=== PATIENT | female | born 1950 | race Caucasian/White ===

== ENCOUNTER 2024-09-15 16:13 | Outpatient (REF) | payer SELFPAY ==
[2024-09-15 17:15] LABS: Influenza A PCR NEGATIVE (Negative); Influenza B PCR NEGATIVE (Negative); Resp Syncy Virus RNA Qual PCR NEGATIVE (Negative); SARS COV2 PCR INHOUSE NEGATIVE (Negative)
== END 2024-09-15 16:14 | disposition home or self-care (01) ==
LOC: HO.LNP 16:13
PROVIDERS: Visit Provider Nurse Practitioner Gerontology
DX: J02.9 Acute pharyngitis, unspecified (principal)
CPT/HCPCS: 0241U

== ENCOUNTER 2024-09-28 10:58 | Emergency (ER) | payer MEDICARE, SELFPAY ==
--- NOTE | ~2024-09-28 | XR_ITS ---
EXAMINATION: XR CHEST CLINICAL INFORMATION: Failure to thrive. COMPARISON: None available. TECHNIQUE: AP portable view of the chest was obtained. FINDINGS: Study is limited due to leftward patient rotation. There is cardiac enlargement. Mediastinal and hilar contours appear normal. The aorta is calcified. Lungs demonstrate patchy increased opacities in the right upper and right lower lobes. Increased background parenchymal markings, with Sofia lines in the peripheral lungs, suggesting mild CHF. Blunting of the right costophrenic sulcus, possibly representing a small effusion. No pneumothorax. Kyphoscoliosis and degenerative changes of the spine. End-stage arthritic changes of both shoulder joints. XR/XR chest 1V IMPRESSION: 1. Exam limited due to patient rotation. 2. Cardiomegaly with mild interstitial pulmonary edema, and tiny right effusion. 3. More confluent foci of opacity in the medial right lung base and right upper lobe could represent asymmetric alveolar edema, or possibly regions of pneumonia. Electronically signed by: Steve Almanza MD 09/28/2024 12:40 PM [facility]
[2024-09-28 11:06] VITALS: BP 126/75; PULSE 112; O2SAT 99
--- NOTE | 2024-09-28 11:16 | ED.GENADULT ---
HPI - General Adult General Chief complaint: General Medical Stated complaint: FTT Time Seen by Provider: 09/28/24 11:14 Source: patient and EMS Mode of arrival: EMS Limitations: no limitations History of Present Illness ED Provider: DAWNA REINA PA-C HPI narrative: 74 year old female with pmhx significant for F, RA, tachycardia, Sjogren's syndrome, anemia, metabolic encephalopathy, anxiety presents the ED today via EMS from [facility] for evaluation of FTT. Per facility, patient has been refusing PO intake over the past week. At present, she denies any complaints. She is asking for water. She has a sacral pressure wound that is dressed. No hx of DM. Related Data Home Medications ?Medication ?Instructions ?Recorded ?Confirmed acetaminophen 325 mg tablet 650 mg PO Q6H PRN Fever 09/28/24 09/28/24 acetaminophen 325 mg tablet 650 mg PO Q6H PRN Pain 09/28/24 09/28/24 acetaminophen 500 mg tablet 1,000 mg PO TID 09/28/24 09/28/24 ascorbic acid (vitamin C) 500 mg 500 mg PO DAILY 09/28/24 09/28/24 tablet (Vitamin C) aspirin 81 mg tablet,delayed 81 mg PO DAILY 09/28/24 09/28/24 release atorvastatin 80 mg tablet 80 mg PO BEDTIME 09/28/24 09/28/24 bisacodyl 10 mg rectal suppository 10 mg MD DAILY PRN Constipation 09/28/24 09/28/24 carvedilol 3.125 mg tablet 3.125 mg PO BID 09/28/24 09/28/24 dapagliflozin propanediol 10 mg 10 mg PO BEDTIME 09/28/24 09/28/24 tablet (Farxiga) dextran 70-hypromellose (PF) 0.1 1 drp ophthalmic (eye) Q8H PRN Dry 09/28/24 09/28/24 %-0.3 % eye drops in a dropperette Eye(S) (Artificial Tears (PF)) docusate sodium 100 mg capsule 100 mg PO BID 09/28/24 09/28/24 (Colace) furosemide 20 mg tablet 20 mg PO DAILY 09/28/24 09/28/24 magnesium hydroxide 400 mg/5 mL 30 ml PO DAILY PRN Constipation 09/28/24 09/28/24 oral suspension (Milk of Magnesia) sodium phosphates 19 gram-7 118 ml MD DAILY PRN Constipation 09/28/24 09/28/24 gram/118 mL enema (Fleet Enema) spironolactone 25 mg tablet 25 mg PO DAILY 09/28/24 09/28/24 Allergies Allergy/AdvReac Type Severity Reaction Status Date / Time Penicillins [PENICILLINS] Allergy Unknown SICKER Verified 09/28/24 12:07 Sulfa (Sulfonamide Allergy Unknown BLUE-RED Verified 09/28/24 12:07 Antibiotics) RASH- FLU [SULFA (SULFONAMIDE LIKE ANTIBIOTICS)] SYMPTOMS Review of Systems Review of Systems: Yes all other systems are reviewed and are negative PMFSH Past Medical History Attestation statement: The following information was validated with the patient. Source: old records reviewed and nursing notes reviewed Social History Social History Smoked in Last 30 Days: No Use of substances other than those prescribed or required for medical reasons: No Advance Directives: Yes Advance Directives on File: Yes Advance Directives Date on File: 09/28/24 Physical Exam ED Vital Signs: Vital Signs - 24 hr 09/29/24 02:10 09/29/24 03:53 09/29/24 08:00 Temperature 97.2 F 98.0 F Pulse Rate 91 95 97 Respiratory Rate 16 14 15 Blood Pressure 141/63 H 122/55 L 140/68 H Pulse Oximetry 97 98 98 Oxygen Delivery Method Room Air Room Air Room Air 09/29/24 09:26 09/29/24 15:37 09/29/24 19:58 Temperature 98.0 F 97.5 F Pulse Rate 92 95 Respiratory Rate 20 17 20 Blood Pressure 130/54 L 130/60 Pulse Oximetry 96 99 Oxygen Delivery Method Room Air Room Air BMI result Body Mass Index 16.0 hypertensive, tachycardic, febrile General: thin female Skin: + see photo of sacral pressure ulcer below Head: Normocephalic, atraumatic. EENT: Hearing is intact b/l. Conjunctiva clear. PERRLA. EOM intact. Moist mucous membranes.? Neck: Supple without LAD Cardiac: Chest wall symmetric. RRR. no peripheral edema. Lungs: Normal respiratory effort without accessory muscle use. CTA bilaterally Abdomen: Soft, non-tender, non-distended. No rebound tenderness or guarding Back: No midline spinous or paraspinal tenderness. No step off deformity. Ext: Upper and lower extremities atraumatic, without tenderness, deformity, swelling or erythema Neuro: AOx3. Normal speech. Global weakness w/ strength 3/5 intact throughout. Sensation intact to light touch. NV intact distally. gait not assessed. Psych: Appropriate mood and affect. Responds appropriately to questions. Course Course Course Narrative: 1130 -- HR 116, rectal temp of 102F. concern for infection. sepsis protocol initiated. IV tylenol for fever. vanc + cefepime for broad spectrum coverage. lactic + BC ordered. 1338 -- I had a long discussion with patient's healthcare proxy (son) along with her [id number]. Patient has a longstanding history of multiple admissions to [facility]. They requested that she be brought to [facility] today for continuity of care however she was brought to [place] emergency department. They tell me that she has been in and out of the hospital with multiple infection (pneumonia, CHF, ?septic joint, pressure ulcers). She has been complaining of pain x months and has been refusing food/drink and all medications. She was recently discharged from [facility] to SNF on [facility] [employer] with plans for hospice. Hospice did visit patient this past week, without HCP present, and patient declined hospice. On arrival, she has a signed MOLST form stating full code, dated yesterday. Patient is not alert and oriented and does not have the capacity to make these decisions. after lengthy discussion, new MOLST form filled out with HCP sating patient is DNR/DNI. They would like any treatable infections to be treated. Will consult CM regarding [employer]/ hospice. labs UA still pending. 1700 -- CBC showing leukocytosis to 19.6 with left shift. Microcytic anemia, chronic when compared to priors. H&H stable and above transfusion threshold. Chemistry showing hyponatremia to 162. Hypokalemia at 3.2 hyperchloremia to 124. No BERONICA. Lactic WNL at 1.7. Liver function WNL. Troponin elevated to 728.3, likely demand. BNP elevated to 3879. cxr showing cardiomegaly with mild interstitial pulmonary edema and tiny right pleural effusion. More confident foci of opacity in the middle right lung base and right upper lobe which may represent alveolar edema or pneumonia. urine positive for infection. negative covid, flu, rsv. > I had a discussion with healthcare proxy. Although he wishes to make his mother [employer], he does wish to treat any treatable conditions. I discussed admission to the hospital for IV antibiotics and he is agreeable with this. I reached out to hospitalist dr. walls who will be discussing admission w/ patient and HCP. 1744 -- upon discussion with hospitalist, HCP has ultimately decided that it's best for patient to be discharged back to her nursing facility. he does not wish to admit patient for further treatment. Dr. Walls is recommending d/c on PO morphine and levofloxacin. i did speak with case management regarding return back to facility. patient is not a bed hold and cannot go back to facility today. at this time, will make patient comfortable w/ morphine q4 and re-evaluate in the morning. physician observation initiated pending re-eval, CM, and disposition. Medications Administered Generic Name Dose Route Start Last Admin Trade Name Freq PRN Reason Stop Dose Admin Morphine Sulfate 2 mg 09/28/24 20:45 09/29/24 18:28 Morphine Sulfate 2 Mg/Ml Cartridge IVPUSH Not Given [facility] Protocol Discontinued Medications Generic Name Dose Route Start Last Admin Trade Name Freq PRN Reason Stop Dose Admin Sodium Chloride 1,000 mls @ 999 mls/hr 09/28/24 11:30 09/28/24 13:24 Ns IV 09/28/24 12:30 Infused .Q1H1M CELESTINO Infusion Acetaminophen 1,000 mg in 100 mls @ 400 mls/hr 09/28/24 11:28 09/28/24 12:06 Ofirmev IV 09/28/24 11:42 Infused ONCE ONE Infusion Cefepime HCl 2 gm in 50 mls @ 100 mls/hr 09/28/24 11:32 09/28/24 12:16 Maxipime IV 09/28/24 12:01 Infused ONCE ONE Infusion Vancomycin HCl 1,000 mg/ 270 mls @ 270 mls/hr 09/28/24 11:32 09/28/24 14:00 Sodium Chloride IV 09/28/24 12:31 Infused ONCE ONE Infusion Morphine Sulfate 2 mg 09/28/24 13:41 09/28/24 14:01 Morphine Sulfate 2 Mg/Ml Cartridge IVPUSH 09/28/24 13:42 2 mg ONCE ONE Administration Protocol Medical Decision Making Medical Decision Making [facility] Narrative: 74 year old female with pmhx significant for F, RA, tachycardia, Sjogren's syndrome, anemia, metabolic encephalopathy, anxiety presents the ED today via EMS from [facility] for evaluation of FTT. Vital signs notable for hypertension, tachycardia and fever. She is not hypoxic. No signs of respiratory distress. She is thin appearing. Exam notable for sacral pressure ulcar w/ purulent drainage and surrounding erythema. no other open skin wounds. lungs are cta b/l. Differential diagnosis include anemia, electrolyte abnormality, dehydration, FTT, CHF, arrhythmia, ACS, pneumonia, viral syndrome, bronchitis, cellulitis, sacral abscess, sepsis Plan for labs,ekg, lactic/blood cultures, CXR, re-evaluation. Tylenol ordered for fever. Vancomycin and cefepime ordered for broad-spectrum coverage. Differential Diagnosis Differential Diagnoses: The differential diagnosis associated with the presentation includes as above. Admission/Observation Consideration of admission/observation: Escalation of care including admission/observation considered Admission considered on presentation Lab Data [facility] Lab Attestation statement: I reviewed the patient's lab results. as above. 09/28/24 11:41 09/28/24 14:14 Labs: Lab Results 09/28/24 09/28/24 09/28/24 Range/Units 11:41 14:14 14:24 WBC 19.6 H (4.8-10.8) X10*3/uL RBC 3.79 L (4.20-5.50) X10*6/uL Hgb 8.7 L (12.0-16.0) g/dl Hct 29.7 L (37.0-47.0) % MCV 78.4 L (80.0-98.0) fL MCH 23.0 L (27.0-33.0) pg MCHC 29.3 L (31.0-35.0) g/dl RDW 23.8 H (11.0-16.0) % Plt Count 492 H (160-400) X10*3/uL MPV 9.2 L (9.4-12.3) fL Immature Gran % (Auto) 1.0 H (0.0-0.4) % Neut % (Auto) 88.6 H (45-73) % Lymph % (Auto) 5.4 L (20-40) % Schley % (Auto) 4.9 (2-11) % Eos % (Auto) 0.0 (0-4) % Baso % (Auto) 0.1 (0-2) % Lymph # (Auto) 1.1 L (1.2-4.9) X10*3/uL Schley # (Auto) 1.0 (0.1-1.2) X10*3/uL Eos # (Auto) 0.0 (0.0-0.4) X10*3/uL Baso # (Auto) 0.0 (0.0-0.2) X10*3/uL Abs Immat Gran (auto) 0.19 H (0.00-0.03) X10*3/uL Absolute Neuts (auto) 17.4 H (2.0-8.3) x10*3/uL Absolute Nucleated RBC 0.090 H (0.0-0.012) X10*3/uL Nucleated RBC % (auto) 0.5 H (0.0-0.2) /100WBC Sodium 162 H* D (135-145) mmol/L Potassium 3.2 L D (3.3-5.1) mmol/L Chloride 124 H D (96-108) mmol/L Carbon Dioxide 26 (22-29) mmol/L Anion Gap 15 (12-20) BUN 19 H (9-16) mg/dL Creatinine 0.43 L (0.5-1.4) mg/dL Estim Creat Clear Calc 61.1 Estimated GFR > 60 Random Glucose 101 (60-115) mg/dL Lactic Acid 1.7 (0.5-2.0) mmol/L Calcium 7.6 L D (8.4-10.2) mg/dL Magnesium 2.1 (1.6-2.6) mg/dL Total Bilirubin 0.4 (0.0-1.0) mg/dL AST 20 (5-31) U/L ALT < 6 (0-31) U/L Alkaline Phosphatase 79 (39-117) U/L Troponin I High Sens 728.3 H* (<3.5-17.0) ng/L B-Natriuretic Peptide 3879 H (<100) pg/mL Total Protein 5.9 L (6.5-8.0) g/dL Albumin 2.3 L (3.5-5.0) g/dL Urine Color Dark Yellow Urine Appearance Cloudy Urine pH 6.0 (5.0-9.0) Ur Specific Graham 1.025 (1.005-1.025) Urine Protein 100 (2+) H (Neg-Trace) mg/dL Urine Glucose (UA) Negative (Negative) mg/dL Urine Ketones 15 (Negative) mg/dL Urine Blood Negative (Negative) Urine Nitrite Positive H (Negative) Ur Leukocyte Esterase Small (1+) H (Negative) Urine RBC 3-5 H (0-2) /HPF Urine WBC 6-10 H (0-5) /HPF Ur Squamous Epith Cells 6-10 (0-2) /HPF Urine Bacteria None Seen (None Seen) Hyaline Casts >20 (0-2) /LPF Influenza Type A (PCR) NEGATIVE (Negative) Influenza Type B (PCR) NEGATIVE (Negative) RSV RNA Qual (PCR) NEGATIVE (Negative) SARS-CoV-2 RNA (RT-PCR) NEGATIVE (Negative) Independent Interpretation I performed an independent interpretation of an: EKG and Plain X-Ray Interpretation: EKG showing sinus tachycardia with LVH, rate of 120 beats per minute, QT 322, QTC 435 CXR showing opacity to right lung base Radiology Impression Discussion of test interpretation with radiology: I have reviewed the radiologist's reading. Radiologist Impression: EXAMINATION: XR CHEST CLINICAL INFORMATION: Failure to thrive. COMPARISON: None available. TECHNIQUE: AP portable view of the chest was obtained. FINDINGS: Study is limited due to leftward patient rotation. There is cardiac enlargement. Mediastinal and hilar contours appear normal. The aorta is calcified. Lungs demonstrate patchy increased opacities in the right upper and right lower lobes. Increased background parenchymal markings, with Sofia lines in the peripheral lungs, suggesting mild CHF. Blunting of the right costophrenic sulcus, possibly representing a small effusion. No pneumothorax. Kyphoscoliosis and degenerative changes of the spine. End-stage arthritic changes of both shoulder joints. XR/XR chest 1V IMPRESSION: 1. Exam limited due to patient rotation. 2. Cardiomegaly with mild interstitial pulmonary edema, and tiny right effusion. 3. More confluent foci of opacity in the medial right lung base and right upper lobe could represent asymmetric alveolar edema, or possibly regions of pneumonia. Electronically signed by: Steve Almanza MD 09/28/2024 12:40 PM [facility] Independent Historian Clinical information obtained from an independent historian. History obtained from or confirmed by: EMS and Other (son/hcp, daughter in law) External Record Review External record reviewed: Inpatient record Prescription Management I considered prescription management with: Pain Medication and Antibiotic Chronic Conditions Patient?s care impacted by: Other (CHF) Social Determinants Patient?s care significantly limited by Social Determinants of Health including: Other Social Determinant of Health Critical Care Time Critical Care Time Critical Care Time: No Discharge Plan Discharge Clinical Impression: Sepsis, Adult failure to thrive, Pneumonia, Urinary tract infection, Elevated troponin, CHF (congestive heart failure) Patient Disposition: Still a Patient Prescriptions: No Action atorvastatin 80 mg tablet 80 mg PO BEDTIME acetaminophen 325 mg Tablet 650 mg PO Q6H PRN (Reason: Fever) acetaminophen 325 mg Tablet 650 mg PO Q6H PRN (Reason: Pain) aspirin 81 mg Tablet,Delayed Release (Dr/Ec) 81 mg PO DAILY acetaminophen 500 mg Tablet 1,000 mg PO TID spironolactone 25 mg tablet 25 mg PO DAILY carvedilol 3.125 mg tablet 3.125 mg PO BID magnesium hydroxide [Milk of Magnesia] 400 mg/5 mL Suspension 30 ml PO DAILY PRN (Reason: Constipation) Rx Instructions: (Step 1) If no BM for 3 days ascorbic acid (vitamin C) [Vitamin C] 500 mg Tablet 500 mg PO DAILY bisacodyl 10 mg Suppository 10 mg MD DAILY PRN (Reason: Constipation) Rx Instructions: If no BM for 8 hours after after M.O.M Fleet Enema 19-7 gram/118 mL Enema 118 ml MD DAILY PRN (Reason: Constipation) Rx Instructions: (Step 3) If no BM for 8 hours after Bisacodyl Supp. docusate sodium [Colace] 100 mg Capsule 100 mg PO BID furosemide 20 mg tablet 20 mg PO DAILY Artificial Tears (PF) 0.1-0.3 % Dropperette 1 drp OPHTHALMIC (EYE) Q8H PRN (Reason: Dry Eye(S)) Rx Instructions: Both Eyes dapagliflozin propanediol [Farxiga] 10 mg Tablet 10 mg PO BEDTIME Print Language: Citizen Of [place]
--- NOTE | 2024-09-28 11:18 | ECG_ITS ---
Test Reason : FTT Blood Pressure : */* mmHG Vent. Rate : 120 BPM Atrial Rate : 120 BPM P-R Int : 122 ms QRS Dur : 78 ms QT Int : 322 ms P-R-T Axes : 38 -14 86 degrees QTcB Int : 455 ms Sinus tachycardia Left ventricular hypertrophy with repolarization abnormality ( R in aVL , [place] product , Romhilt-Mcelroy ) Anterior infarct , age undetermined Abnormal ECG No previous ECGs available Referred By: Kesha Begum Electronically Signed By: LITO SWEET MD
[2024-09-28 11:24] VITALS: BP 140/62; PULSE 116; RESP 18; TEMP 38.9; O2SAT 96; BMI 16.0
[2024-09-28] MEDS: cefEPime HCl/D5W 2 GM/50 ML PIGGYBACK IV (11:45)
[2024-09-28] MEDS: 0.9 % Sodium Chloride 1,000 ML 999 ML IV (11:46)
[2024-09-28 11:47] LABS: MANUAL DIFF FLAG NO
[2024-09-28] MEDS: Acetaminophen 1,000 MG/100 ML PIGGYBACK 400 MG IV (11:48)
[2024-09-28 11:51] LABS: Basophils Percent Auto 0.1 % (0-2); Hematocrit 29.7 % (37.0-47.0); Hemoglobin 8.7 g/dl (12.0-16.0); Imm Gran Abs Auto 0.19 X10*3/uL (0.00-0.03); Lymphocytes Absolute Auto 1.1 X10*3/uL (1.2-4.9); Lymphocytes Percent Auto 5.4 % (20-40); Mean Corpuscular HGB Conc 29.3 g/dl (31.0-35.0); Mean Corpuscular Volume 78.4 fL (80.0-98.0); Mean Platelet Volume 9.2 fL (9.4-12.3); Monocytes Percent Auto 4.9 % (2-11); NRBC Pct Auto 0.5 /100WBC (0.0-0.2); Neutrophils Absolute Auto 17.4 x10*3/uL (2.0-8.3); Neutrophils Percent Auto 88.6 % (45-73); Platelet Count 492 X10*3/uL (160-400); Red Blood Count 3.79 X10*6/uL (4.20-5.50); Red Cell Distribution Width 23.8 % (11.0-16.0); White Blood Count 19.6 X10*3/uL (4.8-10.8)
[2024-09-28 12:02] LABS: Lactic Acid 1.7 mmol/L (0.5-2.0)
[2024-09-28 12:38] LABS: Influenza A PCR NEGATIVE (Negative); Influenza B PCR NEGATIVE (Negative); Resp Syncy Virus RNA Qual PCR NEGATIVE (Negative); SARS COV2 PCR INHOUSE NEGATIVE (Negative)
[2024-09-28] MEDS: vancomycin HCL 1,000 MG in 0.9 % Sodium Chloride 250 ML 270 MG IV (12:54)
[2024-09-28 13:26] VITALS: BP 133/65; PULSE 104; RESP 20; O2SAT 96
--- NOTE | 2024-09-28 13:28 | PC.NURSE ---
pt has a wound to her sacral area. there is pus and drainage. came bandaged. dresing clean. photo taken by JAKE
[2024-09-28 14:01] VITALS: BP 138/67; PULSE 97; RESP 20; O2SAT 97
[2024-09-28] MEDS: Morphine Sulfate 2 MG/ML CARTRIDGE IVPUSH (14:01)
--- OUTSIDE RECORDS SUMMARY | 2024-09-28 14:15 | XMS_ITS | Encounter Summary ---
Author Organization [facility] Address [address] [place] [address] Care Team Providers Care Steel Box Toe Inserter Name Role Phone Dale Pinto MD Primary Care Provider [phone] Encounter Details Date Type Department Care Team (Late st Contact Info) Description 07/09/[address] [facility] Lab [address] [facility] [place] [address] Rye Escalante MD [address] [place] [id number] Acute respiratory failure with hypoxia (CMS/HCC) Social History Tobacco Use Types Packs/Day Years Used Date Smoking Tobacco: Never Smokeless Tobacco: Never Alcohol Use Standard Drinks/Week Comments Never 0 (1 standard drink = 0.6 oz pur e alcohol) Sex and Gender Information Value Date Recorded Sex Assigned at Female 08/08/2024 10:43 PM EST Gender Identity Female 08/08/2024 10:43 PM EST Sexual Orientation Straight 08/08/2024 10 :43 PM EST Job Start Date Occupation Industry Not on file Not on file Not on file documented as of this encounter Plan of Treatment Not on file documented as of this encounter Procedures Procedure Name Priority Date/Time Associated Diagnosis Comments CBC WITH AUTO DIFFERENTIAL Routine 07/09/2024 5:53 AM EST Acute respiratory failure with hypoxia (CMS/HCC) CBC AND DIFFERENTIAL Routine 07/09/2024 5:53 AM EST Acute respiratory failure with hypoxia (CMS/HCC) COMPREHENSIVE METABOLIC PANEL Routine 07/09/2024 5:53 AM EST Acute respiratory failure with hypoxia (CMS/HCC) documented in this encounter Results * (ABNORMAL) CBC auto differential (07/09/2024 5:53 AM EST) WBC 12.1(H) 4.8 - 10.8 K/mcL LAB HEMETOLOGY METHOD 07/09/2024 12:36 PM [facility] RBC 3.70(L) 3.80 - 4.80 M/mcL LAB HEMETOLOGY METHOD 07/09/2024 12:36 PM [facility] Hemoglobin 7.9(L) 11.5 - 16.0 g/dL LAB HEMETOLOGY METHOD 07/09/2024 12:36 PM [facility] Hematocrit 26.6(L) 35.0 - 47.0 % LAB HEMETOLOGY METHOD 07/09/2024 12:36 PM [facility] MCV 71.7(L) 79.0 - 98.0 FL LAB HEMETOLOGY METHOD 07/09/2024 12:36 PM [facility] MCH 21.3(L) 27.0 - 32.0 pcg LAB HEMETOLOGY METHOD 07/09/2024 12:36 PM [facility] MCHC 29.7(L) 32.0 - 37.0 g/dL LAB HEMETOLOGY METHOD 07/09/2024 12:36 PM [facility] RDW 18.6(H) 11.0 - 15.0 % LAB HEMETOLOGY METHOD 07/09/2024 12:36 PM [facility] Platelets 759(H) 130 - 400 K/mcL LAB HEMETOLOGY METHOD 07/09/2024 12:36 PM [facility] MPV 9.9 7.0 - 11.0 FL LAB HEMETOLOGY METHOD 07/09/2024 12:36 PM [facility] NRBC 0.0 <1.0 % LAB HEMETOLOGY METHOD 07/09/2024 12:36 PM [facility] NRBC Absolute 0.00 <0.10 K/mcL LAB HEMETOLOGY METHOD 07/09/2024 12:36 PM [facility] Neutrophils Relative 85.9 % LAB HEMETOLOGY METHOD 07/09/2024 12:36 PM [facility] Lymphocytes Relative 8.2 % LAB HEMETOLOGY METHOD 07/09/2024 12:36 PM [facility] Monocytes Relative 2.3 % LAB HEMETOLOGY METHOD 07/09/2024 12:36 PM [facility] Eosinophils Relative 2.9 % LAB HEMETOLOGY METHOD 07/09/2024 12:36 PM [facility] Basophils Relative 0.1 % LAB HEMETOLOGY METHOD 07/09/2024 12:36 PM [facility] Immature Granulocytes Relative 0.6 % LAB HEMETOLOGY METHOD 07/09/2024 12:36 PM [facility] Neutrophils Absolute 10.43(H) 1.50 - 7.00 K/mcL LAB HEMETOLOGY METHOD 07/09/2024 12:36 PM [facility] Lymphocytes Absolute 1.00 1.00 - 5.00 K/mcL LAB HEMETOLOGY METHOD 07/09/2024 12:36 PM [facility] Monocytes Absolute 0.28 0.20 - 1.00 K/mcL LAB HEMETOLOGY METHOD 07/09/2024 12:36 PM [facility] Eosinophils Absolute 0.35 0.00 - 0.50 K/mcL LAB HEMETOLOGY METHOD 07/09/2024 12:36 PM [facility] Basophils Absolute 0.01 0.00 - 0.20 K/mcL LAB HEMETOLOGY METHOD 07/09/2024 12:36 PM [facility] Immature Granulocytes Absolute 0.07(H) 0.00 - 0.03 K/mcL LAB HEMETOLOGY METHOD 07/09/2024 12:36 PM [facility] Blood Venous blood specimen / Unknown Venipuncture / Unknown 07/09/2024 5:53 AM EST 07/09/2024 12:02 PM EST Rey Escalante MD LAB BLOOD ORDERABLES [facility] [address] [place] [address], * (ABNORMAL) Comprehensive metabolic panel (07/09/2024 5:53 AM EST) Sodium 132(L) 133 - 145 mmol/L LAB CHEMISTRY METHOD 07/09/2024 1:48 PM [facility] Potassium 4.5 3.5 - 5.5 mmol/L LAB CHEMISTRY METHOD 07/09/2024 1:48 PM [facility] Chloride 96 96 - 110 mmol/L LAB CHEMISTRY METHOD 07/09/2024 1:48 PM [facility] CO2 26 21 - 32 mmol/L LAB CHEMISTRY METHOD 07/09/2024 1:48 PM [facility] Anion Gap 10 3 - 11 LAB CHEMISTRY METHOD 07/09/2024 1:48 PM [facility] Glucose 69(L) 70 - 100 mg/dL LAB CHEMISTRY METHOD 07/09/2024 1:48 PM [facility] Comment:Lipemia present BUN 5 5 - 25 mg/dL LAB CHEMISTRY METHOD 07/09/2024 1:48 PM [facility] Creatinine 0.24(L) 0.50 - 1.10 mg/dL LAB CHEMISTRY METHOD 07/09/2024 1:48 PM [facility] eGFR 116 >=60 mL/min/1. 73m2 LAB CHEMISTRY METHOD 07/09/2024 1:48 PM [facility] Comment:Calculation based on the??Chronic Kidney Disease Epidemiology Collaboration (CKD-EPI) equation refit??without adjustment for race. BUN/Creatinine Ratio 20.8 LAB CHEMISTRY METHOD 07/09/2024 1:48 PM [facility] Calcium 8.5 8.5 - 10.5 mg/dL LAB CHEMISTRY METHOD 07/09/2024 1:48 PM [facility] AST (SGOT) 11 10 - 42 unit/L LAB CHEMISTRY METHOD 07/09/2024 1:48 PM [facility] ALT (SGPT) 9(L) 10 - 60 unit/L LAB CHEMISTRY METHOD 07/09/2024 1:48 PM [facility] Alkaline Phosphatase 98 42 - 121 unit/L LAB CHEMISTRY METHOD 07/09/2024 1:48 PM [facility] Total Protein 5.9(L) 6.0 - 8.0 g/dL LAB CHEMISTRY METHOD 07/09/2024 1:48 PM [facility] Albumin 2.3(L) 3.2 - 5.0 g/dL LAB CHEMISTRY METHOD 07/09/2024 1:48 PM [facility] Total Bilirubin 0.3 0.0 - 1.4 mg/dL LAB CHEMISTRY METHOD 07/09/2024 1:48 PM [facility] Blood Venous blood specimen / Unknown Venipuncture / Unknown 07/09/2024 5:53 AM EST 07/09/2024 12:02 PM EST Rey Escalante MD LAB BLOOD ORDERABLES [facility] [address] [place] [address], documented in this encounter Visit Diagnoses Diagnosis Acute respiratory failure with hypoxia (CMS/HCC) documented in this encounter Additional Health Concerns Infection Onset Date Last Indicated Resolved Time Respiratory Rule-Out 08/09/2024 08/10/2024 024 2:15 AM EST COVID-19 Rule-Out 08/09/2024 08/10/2024 08/10/2024 2:15 AM EST Enterovirus 08/10/2024 08/10/2024 09/03/2024 7:06 PM EST Rhinovirus 08/10/2024 08/10/2024 09/03/2024 7:06 PM EST Respiratory Rule-Out 09/17/2024 09/17/2024 025 5:39 PM EST COVID-19 Rule-Out 09/17/2024 09/17/2024 09/17/2024 5:39 PM EST documented as of this encounter Care Teams Steel Box Toe Inserter Relationship Specialty Start Date End Date Dale Pinto MD [address] [place] [address] PCP - General Internal Medicine 11/10/21 documented as of this encounter
--- OUTSIDE RECORDS SUMMARY | 2024-09-28 14:15 | XMS_ITS | Patient Health Record ---
Author Organization [facility] [place] Address [address] [place] [address] Care Team Providers Care Bioinformatician Name Role Phone Dale Pinto MD Primary Care Provider Peggy Jackson Unavailable [phone] Hanna Aggarwal Unavailable [phone] Allergies Allergen (clinical drug ingredient) Drug/Non Drug Allergy documented on EMR Reaction Allergy Type Onset Date Status loratadine Claritin throat closes Drug Allergy Ac tive Penicillin Unknown Drug Allergy Active Substance with sulfonamide structure and antibacterial mechanism of action (substance) Sulfa Antibiotics Unknown Drug Allergy Active Reason For Referral No Information Medications Medication SIG (Take, Route, Frequency, Duration) Notes Start Date End Date Status Custom Molded Shoes as directed Dx: Limb length deformity-Left leg shorter 09/02/2022 Not-Taking Tylenol PRN Not-Taking Advil 3x a day Active Enbrel 15m Active Vitamin D Active Social History Tobacco Use: Social History Observation Description Date Details (start date - stop date) Never Smoker NA - NA Tobacco Use/Smoking Question Answer Notes Are you a: nonsmoker Additional Findings: Tobacco Non-User Current no n-smoker Alcohol Screen Question Answer Notes Did you have a drink containing alcohol in the p ast year? No Points 0 Interpretation Negative Tobacco use other than smoking: Question Answer Notes Are you an other tobacco user? No Problems Problem Type SNOMED Code ICD Code Onset Dates Problem Status W/U Status Risk Notes Problem [id number] Hallux valgus (acquired), left foot (M20.12) Active confirmed Problem [id number] Hallux valgus (acquired), right foot (M20.11) Active confirmed Problem [id number] Hammer toe of right foot (M20.41) Active confirmed Problem 536244957 Hammer toe of left foot (M20.42) Active confirmed Problem 01551830 Lower limb length difference (M21.70) Active confirmed Vital Signs Blood pressure diastolic 70 mm Hg 04/25/2024 Height 2se87jy in 04/25/2024 Blood pressure systolic 127 mm Hg 04/25/2024 Weight 100 lbs 04/25/2024 BMI 20.9 kg/m2 04/25/2024 Encounters Encounter Location Date Provider Diagnosis [address] [address] 06/08/2024 Hanna Aggarwal [address] [address] 11/04/2023 Peggy Curiela Tinea unguium B35.1 ; Pain in right toe(s) M79.674 and Pain in left toe(s) M79.[address] [address] 04/25/2024 Peggy Curiela Tinea unguium B35.1 ; Pain in right toe(s) M79.674 and Pain in left toe(s) M79.[address] [address] 04/16/2024 Peggy Parker [address] [address] 06/07/2024 Peggy Parker [address] [address] 07/25/2024 Peggy Parker Assessments Encounter Date Diagnosis (ICD Code) Assessment Notes Treatment Notes Treatment Clinical Notes Section Notes 11/04/2023 Tinea unguium (ICD-10 - B35.1) 11/04/2023 Pain in right toe(s) (ICD-10 - M79.674) 04/25/2024 Tinea unguium (ICD-10 - B35.1) 04/25/2024 Pain in right toe(s) (ICD-10 - M79.674) 04/25/2024 Pain in left toe(s) (ICD-10 - M79.675) 11/04/2023 Pain in left toe(s) (ICD-10 - M79.675) Plan Of Treatment Pending Test Test Name Order Date X ray : Foot, right 3V 05/17/2023 Insurance Providers Payer Name Payer Address Payer Phone Subscriber Number Group Number Insured Name Patient Relationship to Insured Coverage Start Date Coverage End Date Medicare National [employer] [address] [place] [address] [id number] KaseyLouann byrd Self - patient is the insured [facility] [address] [facility] [place] [address] [phone] [id number] Louann Barrientos Self - patient is the insured Medical (General) History Medical History History ICD Code Anxiety Broken bones Back,Hip,and Knee pain Anemia White coat hypertension Rheumatoid arthritis Surgical History Surgery Date(Month/Year) right hip surgery 2017 hip surgery - broken femur sx 2022 6 bolts and steal plate shattered - femu r 08/27 femur surgery -after staph i nfection - rehab - infectious disease- 6 weeks from IV 2022 Hospitalization History Reason Date(Month/Year) Hip infection- staph infection 2022
--- OUTSIDE RECORDS SUMMARY | 2024-09-28 14:15 | XMS_ITS | Clinical Summary ---
Author Organization [facility] Address [address] [place] [address] Care Team Providers Care Sales And Marketing Executive Name Role Phone Dale Pinto MD Primary Care Provider [phone] Allergies Active Allergy Reactions Criticality Noted Date Comments Alendronate 10/02/2021 Beeswax Other (See Comments) 06/04/2019 Loratadine Anaphylaxis High 10/15/2022 Penicillin G Other (See Comments) 10/15/2022 Flu like symptoms Risedronate 10/02/2021 Sulfa Antibiotics Rash,Other (See Comments) Low 06/04/2019 Sulfate Rash Low 10/15/2022 Flu like symptoms Medications Medication Sig Dispensed Refills Start Date End Date Status acetaminophen (TYLENOL) 325 MG tablet Take 3 tablets (975 mg total) by mouth every 8 (eight) hours. 120 tablet 0 11/19/2022 Active aspirin 81 MG EC tablet Take 1 tablet (81 mg total) by mouth 2 (two) times a day. 30 tablet 0 11/19/2022 Active Additional Information Patient not taking.Reason: Other, Reported on 12/01/2022 Docusate Sodium (DSS) 100 MG CAPS Take 100 mg by mouth 2 (two) times a day. 10 capsule 0 11/19/2022 Active Additional Information Patient not taking.Reason: Other, Reported on 12/29/2022 senna (SENOKOT) 8.6 MG tablet Take 1 tablet by mouth 2 (two) times a day. 14 tablet 0 11/19/2022 Active Additional Information Patient not taking.Reason: Other, Reported on 12/29/2022 oxyCODONE (ROXICODONE) 5 MG immediate release tablet Take 1 tablet (5 mg total) by mouth every 4 (four) hours as needed. 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 10/14/2022 Periprosthetic fracture arou nd internal prosthetic left hip joint 10/14/2022 Social History Tobacco Use Types Packs/Day Years Used Date Smoking Tobacco: Never Passive Smoke Exposure: Never Smokeless Tobacco: Never Tobacco Cessation:Counseling Given: No Alcohol Use Standard Drinks/Week Comments Never 0 (1 standard drink = 0.6 oz pur e alcohol) Sex and Gender Information Value Date Recorded Sex Assigned at Female 10/15/2022 11:14 AM EST Gender Identity Not on file Sexual Orientation Not on file Job Start Date Occupation Industry Not on file Not on file Not on file Last Filed Vital Signs Vital Sign Reading Time Taken Comments Blood Pressure 136/83 12/01/2022 10:46 AM EDT Pulse 109 12/01/2022 10:46 AM EDT Temperature 36.5 ??C (97.7 ??F) 12/01/2022 10:46 AM E DT Respiratory Rate 16 11/19/2022 3:22 PM EDT Oxygen Saturation 98% 12/01/2022 10:46 AM EDT Inhaled Oxygen Concentration - - Weight 40.6 kg (89 lb 7 oz) 11/15/2022 5:22 PM E DT Height 152.4 cm (5') 12/01/2022 10:46 AM EDT Body Mass Index 18.06 11/15/2022 5:22 PM EDT Plan of Treatment Health Maintenance Due Date Last Done Comments Hepatitis C Screening 1948 Depression Screening 1960 Preventative Health Evaluation 1966 DTap / Tdap / Td (1 - Tdap) 1967 Shingrix-Zoster Vaccine (1 of 2) 1998 Fall Risk Assessment 2013 Osteoporosis Screening (DEXA Scan) 2013 Pneumococcal Vaccine (1 of 1 - PCV) 2013 RSV Adult > 60+ Yrs or (1 - 1-dose 75+ series) 2023 COVID-19 Vaccine ( season) 2024 07/01/2022, 07/02/2021, 12/15/2020, Additional history exists Influenza Vaccine (#1) 2024 Hepatitis B Vaccines Aged Out No long er eligible based on patient's age to complete this topic RSV Ped < 20 months Aged Out No longe r eligible based on patient's age to complete this topic Medical Devices Implanted Type Area Emergency Room Clinician Device Identifier Shelf Expiration Date Model / Serial / Lot 3.5mm Va Locking Ppfx Greater Troch Ring Left Small Implanted:Qty: 1 on 10/16/2022 [place] Villag[place] [facility] [place] [facility] Left: Femur DEPUY SYNTHES++DNU+JNJ SYNT 02.221.101 / / Screw Slftp Lk Va T15 3.5x24 Jnj-Synt 02.127.124-370 230 - [id number] Implanted:Qty: 1 on 10/16/2022 by Robbie Villagran [place] [facility] [place] [facility] Left: Femur JNJ DEPUY SYNTHES 02.127.124 / / Screw Slftp Lk Va T15 3.5x44 Jnj-Synt 02.127.144-370 240 - [id number] Implanted:Qty: 1 on 10/16/2022 by Robbie Villagran MD [place] [facility] [place] [facility] Left: Femur JNJ DEPUY SYNTHES 02.127.144 / / Screw Slftp Lk Va T15 3.5x46 Jnj-Synt 02.127.146-370 241 - [id number] Implanted:Qty: 1 on 10/16/2022 by Robbie Villagran MD [place] [facility] [place] [facility] Left: Femur JNJ DEPUY SYNTHES 02.127.146 / / Screw Slftp Lk Va T15 3.5x56 Jnj-Synt 02.127.156-370 246 - [id number] Implanted:Qty: 3 on 10/16/2022 by Robbie Villagran MD [place] [facility] [place] [facility] Left: Femur JNJ DEPUY SYNTHES 02.127.156 / / Screw Joseph Slftp T15 3.5x55 Stardrv Recess Jnj-Synt 02.200.055345 747 - [id number] Implanted:Qty: 1 on 10/16/2022 by Robbie Villagran MD [place] [facility] [place] [facility] Left: Femur JNJ DEPUY SYNTHES 02.200.055 / / Screw 3.5mm Stardrv Slftp 80mm Jnj-Synt .200.080-223 876 - [id number] Implanted:Qty: 1 on 10/16/2022 by Robbie Villagran MD at [facility] [place] [facility] Left: Femur JNJ DEPUY SYNTHES 02.200.080 / / Screw Slftp Va Lk Ss 5x36 Strdrv 25 Jnj-Synt 02.231.236-349 722 - [id number] Implanted:Qty: 1 on 10/16/2022 by Robbie Villagran MD at [facility] [place] [facility] Left: Femur JNJ DEPUY SYNTHES 02.231.236 / / Screw Slftp Va Lk Ss 5x38 Strdrv 25 Jnj-Synt 02.231.238-349 723 - [id number] Implanted:Qty: 1 on 10/16/2022 by oRbbie Villagran MD at [facility] [place] [facility] Left: Femur JNJ DEPUY SYNTHES 02.231.238 / / Screw Slftp Va Lk Ss 5x40 Strdrv 25 Jnj-Synt 02.231.240-349 724 - [id number] Implanted:Qty: 1 on 10/16/2022 by Robbie Villagran MD at [facility] [place] [facility] Left: Femur JNJ DEPUY SYNTHES 02.231.240 / / Screw Slftp Va Lk Ss 5x42 Strdrv 25 Jnj-Synt 02.231.242-349 725 - [id number] Implanted:Qty: 1 on 10/16/2022 by Robbie Villagran MD [place] [facility] [place] [facility] Left: Femur JNJ DEPUY SYNTHES 02.231.242 / / Screw Cortex 4.5x36mm Self Tap Jnj-Synt 214.836-541201 - [id number] Implanted:Qty: 1 on 10/16/2022 by Robbie Villagran MD [place] [facility] [place] [facility] Left: Femur JNJ DEPUY SYNTHES 214.836 / / Bone Chip Canc 30ml Inhs Nprtr Allograft Tissue Freeze Dried Musc-Trns 051826-081693 - [id number] Implanted:Qty: 1 on 10/16/2022 by Robbie Villagran MD [place] [facility] [place] [facility] Left: Femur MUSCULOSKELETAL TRANSP FNDTN 03/03/2025 092083 / [id number] / Bone Chip Canc 30ml Inhs Nprtr Allograft Tissue Freeze Dried [facility] 386770-091691 - [id number] Implanted:Qty: 1 on 10/16/2022 by Robbie Villagran MD [place] [facility] [place] [facility] Left: Femur MUSCULOSKELETAL TRANSP FNDTN 04/02/2025 563167 / [id number] / Bone Chip Canc 30ml Inhs Nprtr Allograft Tissue Freeze Dried [facility] 827612-864189 - [id number] Implanted:Qty: 1 on 10/16/2022 by Robbie Villagran MD at [facility] [place] [facility] Left: Femur MUSCULOSKELETAL TRANSP FNDTN 02/10/2025 397743 / [id number] 1049 / Bone Chip Canc 30ml Inhs Nprtr Allograft Tissue Freeze Dried [facility] 785967-272518 - [id number] Implanted:Qty: 1 on 10/16/2022 by Robbie Villagran MD at [facility] [place] [facility] Left: Femur MUSCULOSKELETAL TRANSP FNDTN 04/02/2025 156424 / [id number] 1036 / Bone Filler Bio4 Matrix 10ml Stry-Obio 5627-9117-8560 55 - [id number] Implanted:Qty: 1 on 10/16/2022 by Robbie Villagran MD [place] [facility] [place] [facility] Left: Femur [employer] 03/30/2024 9813-3693 / [id number] / [id number] 3.5/4.5mm Va-Lcp Ppfx Proximal Femur Plates Left 7 Hole 216mm Implanted:Qty: 1 on 10/16/2022 by Robbie Villagran MD [place] [facility] [place] [facility] Left: Femur DEPUY SYNTHES++DNU+JNJ SYNT 02221.113 / / Kit Jamalan Rapd Cure 10ml [facility] 822-229-383929 - [id number] Implanted:Qty: 1 on 11/16/2022 by Robbie Villagran MD [place] [facility] [place] [facility] Left: Hip BIOCOMPOSITES 06/04/2025 620-010 / / [id number] Explanted Type Area Emergency Room Clinician Device Identifier Shelf Expiration Date Model / Serial / Lot 1 Plate Explanted:Qty: 1 on 10/16/2022 by Robbie Villagran [place] [facility] [place] [facility] Left: Femur Screw Slftp Va T15 3.5x36 Jnj-Synt .127.136-370 236 - [id number] Explanted:Qty: 1 on 10/16/2022 by Robbie Villagran MD [place] [facility] [place] [facility] Left: Femur JNJ DEPUY SYNTHES 127.136 / / Screw Slftp Lk Va T15 3.5x44 Jnj-Synt .127.144-370 240 - [id number] Explanted:Qty: 1 on 10/16/2022 by Robbie Villagran MD [place] [facility] [place] [facility] Left: Femur JNJ DEPUY SYNTHES 127.144 / / 6 Wires Explanted:Qty: 1 on 10/16/2022 by Robbie Villagran MD [place] [facility] [place] [facility] Left: Femur 1.0mm Cable With Crimp Explanted:Qty: 1 on 10/16/2022 by Robbie Villagran MD [place] [facility] [place] [facility] Left: Femur 03/04/2025 298.800.01 S / / [id number] Screws Explanted:Qty: 1 on 10/16/2022 by Robbie Villagran MD at [facility] [place] [facility] Left: Femur Cable W Crimp 1.6z981jt Ster Jnj-Synt 298.801.01s-11 4935 - [id number] Explanted:Qty: 1 on 10/16/2022 by Robbie Villagran MD [place] [facility] [place] [facility] Left: Femur JNJ DEPUY SYNTHES 01/02/2026 298.801.01 S / / [id number] Advance Directives For more information, please contact: [phone] Latest Code Status on File Code Status Date Activated Date Inactivated Comments Full Code 11/15/2022 5:40 PM 11/20/2022 1:12 AM This code status was ascertained in the following way: discussion with patient . Code Status History Code Status Date Activated Date Inactivated Comments Full Code 10/15/2022 12:33 PM 10/19/2022 1:46 AM This code status was ascertained in the following way: discussion with patient . Care Teams Sales And Marketing Executive Relationship Specialty Start Date End Date Dale Pinto MD [address] [facility] [address] [facility] [place] [address] PCP - General Internal Medicine 10/06/22
--- OUTSIDE RECORDS SUMMARY | 2024-09-28 14:15 | XMS_ITS | Encounter Summary ---
Author Organization [employer] [facility] Address [address] [place] [address] Care Team Providers Care Custodian Manager Name Role Phone Dale Pinto MD Primary Care Provider [phone] Encounter Details Date Type Department Care Team (Late st Contact Info) Description 07/21/2024 Lab Requisition [facility] - Main Lab [address] [facility] [place] [address] Rey Escalante MD [address] [place] [id number] Dysuria Social History Tobacco Use Types Packs/Day Years [...] Procedure Name Priority Date/Time Associated Diagnosis Comments URINALYSIS WITH REFLEX MICROSCOPIC AND CULTURE Routine 07/20/2024 12:00 AM EST Dysuria WATERS URINE CULTURE TUBE Routine 07/20/2024 12:00 AM EST Dysuria URINALYSIS WITH REFLEX MICROSCOPIC AND CULTURE Routine 07/20/2024 12:00 AM EST Dysuria CULTURE URINE Routine 07/20/2024 12:00 AM EST Dysuria documented in this encounter Results * Culture urine (07/20/2024 12:00 AM EST) Pathologist [facility] Culture, Urine No growth 07/22/2024 12:[address] [facility] Urine Urine specimen obtained by clean catch procedure / Unknown 07/20/2024 07/21/2024 9:38 AM EST Rey Escalante MD LAB MICROBIOLOGY - G ENERAL ORDERABLES [facility] [address] [place] [address], * (ABNORMAL) Urinalysis with reflex microscopic and culture (07/20/2024 12:00 AM EST) Pathologist [facility] Specific [place] Urine 1.029 1.003 - 1.030 LAB URINALYSIS - AUTOMATED METHOD 07/21/2024 9:[address] [facility] pH, Urine 6.5 5.0 - 8.0 pH LAB URINALYSIS - AUTOMATED METHOD 07/21/2024 9:[address] [facility] Leukocytes, Urine Moderate(A) Negative LAB URINALYSIS - AUTOMATED METHOD 07/21/2024 9:[address] [facility] Nitrite, Urine Negative Negative LAB URINALYSIS - AUTOMATED METHOD 07/21/2024 9:[address] [facility] Protein, Urine Trace <=Trace mg/dL LAB URINALYSIS - AUTOMATED METHOD 07/21/2024 9:[address] [facility] Glucose, Urine Negative Negative mg/dL LAB URINALYSIS - AUTOMATED METHOD 07/21/2024 9:[address] [facility] Ketones, Urine Negative Negative mg/dL LAB URINALYSIS - AUTOMATED METHOD 07/21/2024 9:[address] [facility] Urobilinogen , Urine 0.2 0.2 - 1.0 mg/dL LAB URINALYSIS - AUTOMATED METHOD 07/21/2024 9:[address] [facility] Bilirubin, Urine Negative Negative LAB URINALYSIS - AUTOMATED METHOD 07/21/2024 9:[address] [facility] Blood, Urine Negative Negative LAB URINALYSIS - AUTOMATED METHOD 07/21/2024 9:[address] [facility] RBC, Urine 1.8 0 - 4 /HPF LAB URINALYSIS - AUTOMATED METHOD 07/21/2024 9:[address] [facility] WBC, Urine 12.2(H) 0 - 4 /HPF LAB URINALYSIS - AUTOMATED METHOD 07/21/2024 9:[address] [facility] Squamous Epithelial, Urine 72(H) 0 - 60 /LPF LAB URINALYSIS - AUTOMATED METHOD 07/21/2024 9:[address] [facility] Bacteria, Urine Negative Negative /HPF LAB URINALYSIS - AUTOMATED METHOD 07/21/2024 9:[address] [facility] Hyaline Casts, Urine 0.8 0 - 3 /LPF LAB URINALYSIS - AUTOMATED METHOD 07/21/2024 9:[address] [facility] Urine Urine specimen obtained by clean catch procedure / Unknown 07/20/2024 07/21/2024 9:13 AM EST Rey Escalante MD LAB URINE ORDERABLES [facility] [address] [place] [address], * Waters urine culture tube (07/20/2024 12:00 AM EST) Extra Tube Hold for add-ons. 07/21/2024 11:01 AM EST [facility] Comment:Auto resulted. Urine Urine specimen obtained by clean catch procedure / Unknown 07/20/2024 07/21/2024 9:13 AM EST Rey Escalante MD LAB URINE ORDERABLES [facility] [address] [place] [address], documented in this encounter Visit Diagnoses Diagnosis Dysuria documented in this encounter Additional Health Concerns [...] documented as of this encounter Care Teams Custodian Manager Relationship Specialty Start Date End Date Dale Pinto MD [address] [place] [address] PCP - General Internal Medicine 11/10/21 documented as of this encounter
--- OUTSIDE RECORDS SUMMARY | 2024-09-28 14:16 | XMS_ITS | Encounter Summary ---
Author Organization [facility] Address [address] [place] [address] Care Team Providers Care Cuprous Chloride Operator Name Role Phone Dale Pinto MD Primary Care Provider [phone] Encounter Details Date Type Department Care Team (Latest Contact Info) Description 07/20/2024 Lab Requisition [facility] - Main Lab [address] [facility] [place] [phone] Rey Escalante MD [address] [place] [id number] Allergic rhinitis due to pollen; Other abnormal findings on microbiological examination of urine; Acute respiratory failure with hypoxia (CMS/HCC) Social [...] Associated Diagnosis Comments URINALYSIS WITH REFLEX MICROSCOPIC Routine 07/20/2024 5:45 AM EST Allergic rhinitis due to pollen Other abnormal findings on microbiological examination of urine Acute respiratory failure with hypoxia (CMS/HCC) WATERS URINE CULTURE TUBE Routine 07/20/2024 5:45 AM EST Allergic rhinitis due to pollen Other abnormal findings on microbiological examination of urine Acute respiratory failure with hypoxia (CMS/HCC) URINALYSIS WITH REFLEX MICROSCOPIC Routine 07/20/2024 5:45 AM EST Allergic rhinitis due to pollen Other abnormal findings on microbiological examination of urine Acute respiratory failure with hypoxia (CMS/HCC) documented in this encounter Results * Waters urine culture tube (07/20/2024 5:45 AM EST) Pathologist [facility] Extra Tube Hold for add-ons. 07/23/2024 3:01 PM [facility] Comment:Auto resulted. Urine Urine specimen obtained by clean catch procedure / Unknown 07/20/2024 5:45 AM EST 07/20/2024 12:10 PM EST Rey Escalante MD LAB URINE ORDERABLES [facility] [address] [place] [address], * Urinalysis with reflex microscopic (07/20/2024 5:45 AM EST) Pathologist [facility] Specific Cedar Urine 1.014 1.003 - 1.030 LAB URINALYSIS - AUTOMATED METHOD 07/20/2024 12:33 PM [facility] pH, Urine 6.0 5.0 - 8.0 pH LAB URINALYSIS - AUTOMATED METHOD 07/20/2024 12:33 PM [facility] Leukocytes, Urine Negative Negative LAB URINALYSIS - AUTOMATED METHOD 07/20/2024 12:33 PM [facility] Nitrite, Urine Negative Negative LAB URINALYSIS - AUTOMATED METHOD 07/20/2024 12:33 PM [facility] Protein, Urine Trace <=Trace mg/dL LAB URINALYSIS - AUTOMATED METHOD 07/20/2024 12:33 PM [facility] Glucose, Urine Negative Negative mg/dL LAB URINALYSIS - AUTOMATED METHOD 07/20/2024 12:33 PM [facility] Ketones, Urine Negative Negative mg/dL LAB URINALYSIS - AUTOMATED METHOD 07/20/2024 12:33 PM [facility] Urobilinogen, Urine 0.2 0.2 - 1.0 mg/dL LAB URINALYSIS - AUTOMATED METHOD 07/20/2024 12:33 PM [facility] Bilirubin, Urine Negative Negative LAB URINALYSIS - AUTOMATED METHOD 07/20/2024 12:33 PM [facility] Blood, Urine Negative Negative LAB URINALYSIS - AUTOMATED METHOD 07/20/2024 12:33 PM [facility] Urine Urine specimen obtained by clean catch procedure / Unknown Non-blood Collection / Unknown 07/20/2024 5:45 AM EST 07/20/2024 11:44 AM EST Rey Escalante MD LAB URINE ORDERABLES [facility] [address] [place] [address], documented in this encounter Visit Diagnoses Diagnosis Allergic rhinitis due to pollen Other abnormal findings on microbiological examination of urine Acute respiratory failure with hypoxia (CMS/HCC) documented in this encounter Additional Health Concerns Infection Onset Date Last Indicated Resolved Time Respiratory Rule-Out 08/09/2024 08/10/2024 024 2:15 AM EST COVID-19 Rule-Out 08/09/2024 08/10/2024 08/10/2024 2:15 AM EST Enterovirus 08/10/2024 08/10/2024 09/03/2024 7:06 PM EST Rhinovirus 08/10/2024 08/10/2024 09/03/2024 7:06 PM EST Respiratory Rule-Out 09/17/2024 09/17/2024/13/2 025 5:39 PM EST COVID-19 Rule-Out 09/17/2024 09/17/2024 09/17/2024 5:39 PM EST documented as of this encounter Care Teams Cuprous Chloride Operator Relationship Specialty Start Date End Date Dale Pinto MD [address] [place], [place] PCP - General Internal Medicine 11/10/21 documented as of this encounter
--- OUTSIDE RECORDS SUMMARY | 2024-09-28 14:16 | XMS_ITS ---
Author Organization [facility] Address [address] [place] [address] Care Team Providers Care Wrecking Crane Engine Operator Name Role Phone Dale Pinto MD Primary Care Provider Peggy aJckson Unavailable [phone] Hanna Aggarwal Unavailable [phone] Allergies Allergen (clinical drug ingredient) Drug/Non Drug Allergy documented on EMR Reaction Allergy Type Onset Date Status loratadine Claritin throat closes Drug Allergy Ac tive Penicillin Unknown Drug Allergy Active Substance with sulfonamide structure and antibacterial mechanism of action (substance) Sulfa Antibiotics Unknown Drug Allergy Active Medications Medication SIG (Take, Route, Frequency, Duration) Notes Start Date End Date Status Enbrel 15m Active Tylenol PRN Not-Taking Advil 3x a day Active Vitamin D Active Custom Molded Shoes as directed Dx: Limb length deformity-Left leg shorter 09/02/2022 Not-Taking Encounters Encounter Location Date Provider Diagnosis [facility] [address] [place] [address] 06/08/2024 Hanna Aggarwal Plan Of Treatment No Information Progress Notes * TOMEKALouann Bhat KDOB:1950 (74 yo F)Acc No.[id number]:06/08/2024 Progress Note Patient:?Louann BARRIENTOS Provider:?Hanna Aggarwal DPM :1950???Age:73 Y???Sex:Female D ate:06/08/2024 Address:[address] [place] [address], [id number] Pcp:Dale Pinto MD Subjective: * Chief Complaints: * ??? * Medical History:?Anxiety, Br oken bones, Back,Hip,and Knee pain, Anemia, White coat hypertension, Rheumatoid arthritis. * Medications:?Taking Advil , Notes to Pharmacist: 3x a day, Taking Vitamin D , Taking Enbrel , Notes to Pharmacist: 15m, Not-Taking/PRN Tylenol , Notes to Pharmacist: PRN, Not-Taking/PRN Custom Molded Shoes 1 pair Custom Shoes and 3 Sets of Custom heat molded inserts as directed Dx: Limb length deformity-Left leg shorter * Allergies:?Penicillin, Sulfa Antibiotics, Claritin: throat closes - Side Effects. Objective: * Vitals:? Assessment: Plan: * Treatment: * Images: * The named appointment provid er may or may not be the originator of this progress note, and it is not deemed complete until electronically signed by the appointment provider. Sign off status: Pending * Provider:?Hanna Aggarwal DPM Date:?1 Generated for [place]/Dominic/Juan Antonio on:?09/28/2024 02:15 PM EST
--- OUTSIDE RECORDS SUMMARY | 2024-09-28 14:16 | XMS_ITS | Encounter Summary ---
Author Organization [facility] Address [address] [place] [address] Care Team Providers Care Mohel Name Role Phone Dale Pinto MD Primary Care Provider [phone] Encounter Details Date Type Department Care Team (Late st Contact Info) Description 07/12/2024 Lab Requisition [facility] - Main Lab [address] [facility] [place] [address] Rey Escalante MD [address] [place] [id number] Acute respiratory failure with hypoxia (CMS/HCC) Social [...] Diagnosis Comments CBC WITH AUTO DIFFERENTIAL Routine 07/12/2024 6:37 AM EST Acute respiratory failure with hypoxia (CMS/HCC) CBC AND DIFFERENTIAL Routine 07/12/2024 6:37 AM EST Acute respiratory failure with hypoxia (CMS/HCC) BASIC METABOLIC PANEL Routine 07/12/2024 6:37 AM EST Acute respiratory failure with hypoxia (CMS/HCC) documented in this encounter Results * (ABNORMAL) CBC auto differential (07/12/2024 6:37 AM EST) [facility] WBC 12.3(H) 4.8 - 10.8 K/mcL LAB HEMETOLOGY METHOD 07/12/2024 9:32 AM [facility] RBC 3.80 3.80 - 4.80 M/mcL LAB HEMETOLOGY METHOD 07/12/2024 9:32 AM [facility] Hemoglobin 8.0(L) 11.5 - 16.0 g/dL LAB HEMETOLOGY METHOD 07/12/2024 9:32 AM [facility] Hematocrit 26.3(L) 35.0 - 47.0 % LAB HEMETOLOGY METHOD 07/12/2024 9:32 AM [facility] MCV 69.9(L) 79.0 - 98.0 FL LAB HEMETOLOGY METHOD 07/12/2024 9:32 AM [facility] MCH 21.3(L) 27.0 - 32.0 pcg LAB HEMETOLOGY METHOD 07/12/2024 9:32 AM [facility] MCHC 30.4(L) 32.0 - 37.0 g/dL LAB HEMETOLOGY METHOD 07/12/2024 9:32 AM [facility] RDW 18.3(H) 11.0 - 15.0 % LAB HEMETOLOGY METHOD 07/12/2024 9:32 AM [facility] Platelets 800(H) 130 - 400 K/mcL LAB HEMETOLOGY METHOD 07/12/2024 9:32 AM [facility] MPV 9.3 7.0 - 11.0 FL LAB HEMETOLOGY METHOD 07/12/2024 9:32 AM [facility] NRBC 0.0 <1.0 % LAB HEMETOLOGY METHOD 07/12/2024 9:32 AM [facility] NRBC Absolute 0.00 <0.10 K/mcL LAB HEMETOLOGY METHOD 07/12/2024 9:32 AM [facility] Neutrophils Relative 83.6 % LAB HEMETOLOGY METHOD 07/12/2024 9:32 AM [facility] Lymphocytes Relative 8.2 % LAB HEMETOLOGY METHOD 07/12/2024 9:32 AM [facility] Monocytes Relative 3.3 % LAB HEMETOLOGY METHOD 07/12/2024 9:32 AM [facility] Eosinophils Relative 4.2 % LAB HEMETOLOGY METHOD 07/12/2024 9:32 AM [facility] Basophils Relative 0.2 % LAB HEMETOLOGY METHOD 07/12/2024 9:32 AM [facility] Immature Granulocytes Relative 0.5 % LAB HEMETOLOGY METHOD 07/12/2024 9:32 AM [facility] Neutrophils Absolute 10.25(H) 1.50 - 7.00 K/mcL LAB HEMETOLOGY METHOD 07/12/2024 9:32 AM [facility] Lymphocytes Absolute 1.00 1.00 - 5.00 K/mcL LAB HEMETOLOGY METHOD 07/12/2024 9:32 AM [facility] Monocytes Absolute 0.41 0.20 - 1.00 K/mcL LAB HEMETOLOGY METHOD 07/12/2024 9:32 AM [facility] Eosinophils Absolute 0.52(H) 0.00 - 0.50 K/mcL LAB HEMETOLOGY METHOD 07/12/2024 9:32 AM [facility] Basophils Absolute 0.02 0.00 - 0.20 K/mcL LAB HEMETOLOGY METHOD 07/12/2024 9:32 AM [facility] Immature Granulocytes Absolute 0.06(H) 0.00 - 0.03 K/[facility] LAB HEMETOLOGY METHOD 07/12/2024 9:32 AM [facility] Blood Venous blood specimen / Unknown Venipuncture / Unknown 07/12/2024 6:37 AM EST 07/12/2024 8:07 AM EST Rey Escalante MD LAB BLOOD ORDERABLES [facility] [address] [place] [address], * (ABNORMAL) Basic metabolic panel (07/12/2024 6:37 AM EST) Sodium 133 133 - 145 mmol/L LAB CHEMISTRY METHOD 07/12/2024 10:18 AM [facility] Potassium 4.4 3.5 - 5.5 mmol/L LAB CHEMISTRY METHOD 07/12/2024 10:18 AM [facility] Chloride 101 96 - 110 mmol/L LAB CHEMISTRY METHOD 07/12/2024 10:18 AM [facility] CO2 25 21 - 32 mmol/L LAB CHEMISTRY METHOD 07/12/2024 10:18 AM [facility] Anion Gap 7 3 - 11 LAB CHEMISTRY METHOD 07/12/2024 10:18 AM [facility] Glucose 72 70 - 100 mg/dL LAB CHEMISTRY METHOD 07/12/2024 10:18 AM [facility] BUN 8 5 - 25 mg/dL LAB CHEMISTRY METHOD 07/12/2024 10:18 AM [facility] Creatinine 0.21(L) 0.50 - 1.10 mg/dL LAB CHEMISTRY METHOD 07/12/2024 10:18 AM EST [facility] eGFR 120 >=60 mL/min/1. 73m2 LAB CHEMISTRY METHOD 07/12/2024 10:18 AM EST [facility] Comment:Calculation based on the??Chronic Kidney Disease Epidemiology Collaboration (CKD-EPI) equation refit??without adjustment for race. BUN/Creatinine Ratio 38.1 LAB CHEMISTRY METHOD 07/12/2024 10:18 AM EST [facility] Calcium 8.5 8.5 - 10.5 mg/dL LAB CHEMISTRY METHOD 07/12/2024 10:18 AM [facility] Blood Venous blood specimen / Unknown Venipuncture / Unknown 07/12/2024 6:37 AM EST 07/12/2024 8:07 AM EST Rey Escalante MD LAB BLOOD ORDERABLES Performing Organization Address City/State/[facility] Co de Phone Number [facility] [address] [place] [address], documented in this encounter Visit Diagnoses Diagnosis [...] documented as of this encounter Care Teams Mohel Relationship Specialty Start Date End Date Dale Pinto MD [address] [place] [address] PCP - General Internal Medicine 11/10/21 documented as of this encounter
--- OUTSIDE RECORDS SUMMARY | 2024-09-28 14:16 | XMS_ITS | Clinical Summary ---
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 AUTO DIFFERENTIAL Routine 07/16/2024 6:17 AM EST Acute respiratory failure with hypoxia (CMS/HCC) CBC AND DIFFERENTIAL Routine 07/16/2024 6:17 AM EST Acute respiratory failure with hypoxia (CMS/HCC) COMPREHENSIVE METABOLIC PANEL Routine 07/16/2024 6:17 AM EST Acute respiratory failure with hypoxia (CMS/HCC) CBC WITH AUTO DIFFERENTIAL Routine 07/12/2024 6:37 AM EST Acute respiratory failure with hypoxia (CMS/HCC) CBC AND DIFFERENTIAL Routine 07/12/2024 6:37 AM EST Acute respiratory failure with hypoxia (CMS/HCC) BASIC METABOLIC PANEL Routine 07/12/2024 6:37 AM EST Acute respiratory failure with hypoxia (CMS/HCC) CBC WITH AUTO DIFFERENTIAL Routine 07/11/2024 7:03 AM EST Anemia, unspecified Acute respiratory failure with hypoxia (CMS/HCC) Other director long term care (current) drug therapy FOLATE Routine 07/11/2024 7:03 AM EST Anemia, unspecified Acute respiratory failure with hypoxia (CMS/HCC) Other half-way (current) drug therapy VITAMIN B12 Routine 07/11/2024 7:03 AM EST Anemia, unspecified Acute respiratory failure with hypoxia (CMS/HCC) Other director long term care (current) drug therapy IRON AND TIBC Routine 07/11/2024 7:03 AM EST Anemia, unspecified Acute respiratory failure with hypoxia (CMS/HCC) Other director long term care (current) drug therapy FERRITIN Routine 07/11/2024 7:03 AM EST Anemia, unspecified Acute respiratory failure with hypoxia (CMS/HCC) Other half-way (current) drug therapy CBC AND DIFFERENTIAL Routine 07/11/2024 7:03 AM EST Anemia, unspecified Acute respiratory failure with hypoxia (CMS/HCC) Other half-way (current) drug therapy URINALYSIS WITH REFLEX MICROSCOPIC AND CULTURE Routine 07/10/2024 12:45 PM EST Urinary tract infection, site not specified WATERS URINE CULTURE TUBE Routine 07/10/2024 12:45 PM EST Urinary tract infection, site not specified URINALYSIS WITH REFLEX MICROSCOPIC AND CULTURE Routine 07/10/2024 12:45 PM EST Urinary tract infection, site not specified CULTURE URINE Routine 07/10/2024 12:45 PM EST Urinary tract infection, site not specified CBC WITH AUTO DIFFERENTIAL Routine 07/09/2024 5:53 AM EST Acute respiratory failure with hypoxia (CMS/HCC) CBC AND DIFFERENTIAL Routine 07/09/2024 5:53 AM EST Acute respiratory failure with hypoxia (CMS/HCC) COMPREHENSIVE METABOLIC PANEL Routine 07/09/2024 5:53 AM EST Acute respiratory failure with hypoxia (CMS/HCC) DR CHEST PORTABLE Routine 06/29/2024 9:2 4 AM EDT Lobar pneumonia, unspecified organism (CMS/HCC) from Last 3 Months Results * (ABNORMAL) C-reactive protein (09/24/2024 7:45 AM EST) Only the most recent of7 resultswithin the time period is included. [facility] C-Reactive Protein 3.62(H) <=0.50 mg/dL LAB CHEMISTRY METHOD 09/24/2024 8:43 AM EST [facility] Blood Venous blood specimen / Unknown Venipuncture / Unknown 09/24/2024 7:45 AM EST 09/24/2024 8:10 AM EST Freya JOSEPH LAB BLOOD ORDERABLES [facility] [address] [place] [address], * (ABNORMAL) POCT Glucose, blood (09/23/2024 11:09 AM EST) Only the most recent of16 resultswithin the time period is included. [facility] Glucose POCT 126(H) 70 - 100 mg/dL 09/23/2024 11:11 AM EST [facility] Blood Capillary blood specimen / Unknown 09/23/2024 11:09 AM EST 09/23/2024 11:12 AM EST Suly Roberson MD LAB POINT OF CARE TE ST DOCKED DEVICE UNSOLICITED RESULTS [facility] [address] [place] [address], [place] [phone] * (ABNORMAL) CBC auto differential (09/23/2024 5:30 AM EST) Only the most recent of20 resultswithin the time period is included. [facility] WBC 15.9(H) 4.8 - 10.8 K/mcL LAB HEMETOLOGY METHOD 09/23/2024 6:48 AM [facility] RBC 3.70(L) 3.80 - 4.80 M/mcL LAB HEMETOLOGY METHOD 09/23/2024 6:48 AM [facility] Hemoglobin 8.3(L) 11.5 - 16.0 g/dL LAB HEMETOLOGY METHOD 09/23/2024 6:48 AM [facility] Hematocrit 28.0(L) 35.0 - 47.0 % LAB HEMETOLOGY METHOD 09/23/2024 6:48 AM [facility] MCV 75.1(L) 79.0 - 98.0 FL LAB HEMETOLOGY METHOD 09/23/2024 6:48 AM [facility] MCH 22.3(L) 27.0 - 32.0 pcg LAB HEMETOLOGY METHOD 09/23/2024 6:48 AM [facility] MCHC 29.6(L) 32.0 - 37.0 g/dL LAB HEMETOLOGY METHOD 09/23/2024 6:48 AM [facility] RDW 22.1(H) 11.0 - 15.0 % LAB HEMETOLOGY METHOD 09/23/2024 6:48 AM [facility] Platelets 652(H) 130 - 400 K/mcL LAB HEMETOLOGY METHOD 09/23/2024 6:48 AM [facility] MPV 9.4 7.0 - 11.0 FL LAB HEMETOLOGY METHOD 09/23/2024 6:48 AM [facility] NRBC 0.0 <1.0 % LAB HEMETOLOGY METHOD 09/23/2024 6:48 AM [facility] NRBC Absolute 0.00 <0.10 K/mcL LAB HEMETOLOGY METHOD 09/23/2024 6:48 AM [facility] Neutrophils Relative 84.7 % LAB HEMETOLOGY METHOD 09/23/2024 6:48 AM [facility] Lymphocytes Relative 7.5 % LAB HEMETOLOGY METHOD 09/23/2024 6:48 AM [facility] Monocytes Relative 6.5 % LAB HEMETOLOGY METHOD 09/23/2024 6:48 AM [facility] Eosinophils Relative 0.0 % LAB HEMETOLOGY METHOD 09/23/2024 6:48 AM [facility] Basophils Relative 0.2 % LAB HEMETOLOGY METHOD 09/23/2024 6:48 AM [facility] Immature Granulocytes Relative 1.1 % LAB HEMETOLOGY METHOD 09/23/2024 6:48 AM [facility] Neutrophils Absolute 13.49(H) 1.50 - 7.00 K/mcL LAB HEMETOLOGY METHOD 09/23/2024 6:48 AM [facility] Lymphocytes Absolute 1.20 1.00 - 5.00 K/mcL LAB HEMETOLOGY METHOD 09/23/2024 6:48 AM [facility] Monocytes Absolute 1.04(H) 0.20 - 1.00 K/mcL LAB HEMETOLOGY METHOD 09/23/2024 6:48 AM EST [facility] Eosinophils Absolute 0.00 0.00 - 0.50 [facility] HEMETOLOGY METHOD 09/23/2024 6:48 AM EST [facility] Basophils Absolute 0.03 0.00 - 0.20 [facility] LAB HEMETOLOGY METHOD 09/23/2024 6:48 AM EST [facility] Immature Granulocytes Absolute 0.17(H) 0.00 - 0.03 K/mcL LAB HEMETOLOGY METHOD 09/23/2024 6:48 AM [facility] Blood Venous blood specimen / Unknown Venipuncture / Unknown 09/23/2024 5:30 AM EST 09/23/2024 6:32 AM EST Abran JOSEPH LAB BLOOD ORDERAB LES [facility] [address] [place] [address], * (ABNORMAL) Basic metabolic panel (09/23/2024 5:30 AM EST) Only the most recent of11 resultswithin the time period is included. Sodium 143 133 - 145 mmol/L LAB CHEMISTRY METHOD 09/23/2024 7:38 AM [facility] Potassium 3.8 3.5 - 5.5 mmol/L LAB CHEMISTRY METHOD 09/23/2024 7:38 AM [facility] Chloride 109 96 - 110 mmol/L LAB CHEMISTRY METHOD 09/23/2024 7:38 AM [facility] CO2 25 21 - 32 mmol/L LAB CHEMISTRY METHOD 09/23/2024 7:38 AM EST [facility] Anion Gap 9 3 - 11 LAB CHEMISTRY METHOD 09/23/2024 7:38 AM [facility] Glucose 114(H) 70 - 100 mg/dL LAB CHEMISTRY METHOD 09/23/2024 7:38 AM [facility] BUN 10 5 - 25 mg/dL LAB CHEMISTRY METHOD 09/23/2024 7:38 AM [facility] Creatinine 0.36(L) 0.50 - 1.10 mg/dL LAB CHEMISTRY METHOD 09/23/2024 7:38 AM [facility] eGFR 105 >=60 mL/min/1. 73m2 LAB CHEMISTRY METHOD 09/23/2024 7:38 AM [facility] Comment:Calculation based on the??Chronic Kidney Disease Epidemiology Collaboration (CKD-EPI) equation refit??without adjustment for race. BUN/Creatinine Ratio 27.8 LAB CHEMISTRY METHOD 09/23/2024 7:38 AM [facility] Calcium 8.5 8.5 - 10.5 mg/dL LAB CHEMISTRY METHOD 09/23/2024 7:38 AM [facility] Blood Venous blood specimen / Unknown Venipuncture / Unknown 09/23/2024 5:30 AM EST 09/23/2024 6:32 AM EST Abran JOSEPH LAB BLOOD ORDERAB LES [facility] [address] [place] [address], * (ABNORMAL) CBC - Every 3 Days (09/22/2024 5:59 AM EST) Only the most recent of3 resultswithin the time period is included. WBC 13.0(H) 4.8 - 10.8 [facility] HEMETOLOGY METHOD 09/22/2024 7:21 AM [facility] RBC 3.50(L) 3.80 - 4.80 M[facility] LAB HEMETOLOGY METHOD 09/22/2024 7:21 AM [facility] Hemoglobin 7.8(L) 11.5 - 16.0 g/dL LAB HEMETOLOGY METHOD 09/22/2024 7:21 AM [facility] Hematocrit 25.7(L) 35.0 - 47.0 % LAB HEMETOLOGY METHOD 09/22/2024 7:21 AM [facility] MCV 73.0(L) 79.0 - 98.0 FL LAB HEMETOLOGY METHOD 09/22/2024 7:21 AM [facility] MCH 22.2(L) 27.0 - 32.0 pcg LAB HEMETOLOGY METHOD 09/22/2024 7:21 AM [facility] MCHC 30.4(L) 32.0 - 37.0 g/dL LAB HEMETOLOGY METHOD 09/22/2024 7:21 AM [facility] RDW 21.6(H) 11.0 - 15.0 % LAB HEMETOLOGY METHOD 09/22/2024 7:21 AM [facility] Platelets 595(H) 130 - 400 K/mcL LAB HEMETOLOGY METHOD 09/22/2024 7:21 AM [facility] MPV 9.3 7.0 - 11.0 FL LAB HEMETOLOGY METHOD 09/22/2024 7:21 AM [facility] NRBC 0.0 <1.0 % LAB HEMETOLOGY METHOD 09/22/2024 7:21 AM [facility] NRBC Absolute 0.00 <0.10 K/mcL LAB HEMETOLOGY METHOD 09/22/2024 7:21 AM [facility] Blood Venous blood specimen / Unknown Venipuncture / Unknown 09/22/2024 5:59 AM EST 09/22/2024 7:03 AM EST Abran JOSEPH LAB BLOOD ORDERAB LES Performing Organization Address City/[facility]/ZIP Co de Phone Number [facility] ([facility] [address] [place] [address], * ECG 12 lead (09/21/2024 10:37 AM EST) Only the most recent of4 resultswithin the time period is included. Ventricular Rate ECG 88 BPM GEMUSE Atrial Rate 88 BPM GEMUSE P-R Interval 146 ms GEMUSE QRS Duration 92 ms GEMUSE Q-T Interval 380 ms GEMUSE QTc 459 ms GEMUSE P Wave [place] 40 degrees GEMUSE R [place] 1 degrees GEMUSE T [place] 37 degrees GEMUSE ECG Interpretation Sinus rhythm Premature atrial complexes and ??with occasional Premature ventricular complexes Possible Left atrial enlargement Left ventricular hypertrophy Abnormal ECG When compared with ECG of 18-SEP-2024 02:31, Premature ventricular complexes are now Present Confirmed by HARRIS AVILES ([id number]) on 09/21/2024 5:30:23 PM GEMUSE 09/21/2024 10:3 7 AM EST 09/21/2024 5:30 PM EST Abran JOSEPH ECG ORDERABLES Performing Organization Address [facility] Co de Phone Number GEMUSE * MR Thoracic Spine wo Contrast (09/20/2024 7:21 PM EST) Anatomical Region Laterality Modality T-spine, Spine Magnetic Resonan ce 09/21/2024 8:27 AM EST Impressions 09/21/2024 8:47 AM EST 1. ??No convincing evidence of discitis/osteomyelitis. 2. ??Chronic endplate fracture deformities at T5, L1, and L3. ??Exaggerated thoracic kyphosis. 3. ??Bilateral pleural effusions. -------- FINAL REPORT -------- Dictated By: Kirill Arguelles Dictated Date: 09/21/2024 08:27 ET Assigned Physician: Kirill Arguelles Reviewed and Electronically Signed By: Kirill Arguelles Signed Date: 09/21/2024 08:47 ET Workstation ID: [id number] Transcribed By: Self Edit Transcribed Date: 09/21/2024 08:27 ET Narrative 09/21/2024 8:47 AM EST PROCEDURE: Noncontrast MRI of the thoracic spine. HISTORY: Back trauma, no prior imaging (Age >= 16y) Bacteremia. COMPARISON: CT chest abdomen and pelvis 09/18/2024. TECHNIQUE: Multiplanar multisequence MRI of the thoracic spine without intravenous contrast administration. FINDINGS: Limited study secondary to patient motion. Mild cardiomegaly. ??Moderate right and small left pleural effusions. Mildly exaggerated thoracic kyphosis. ??Degenerative changes of the lumbar spine and a lumbar levoscoliosis with superior L3 and inferior L1 endplate fractures. ??There is also mild superior endplate deformity at T5. ??Total spine T2 fat-saturated images were performed and there is no marrow edema associated with any of these fractures, suggesting that they are chronic. ??There is trace fluid signal in the L2-3 intervertebral disc space suspected to be degenerative; no convincing evidence of discitis/osteomyelitis. No significant spinal stenosis. ??The neural foramina not well evaluated due to motion and scoliosis. Normal position of the conus at approximately L1. ??Assessment of the cord is limited by motion but there is no visible cord signal abnormality. ??No visible epidural fluid collection. Procedure Note Kirill Arguelles MD - 09/21/2024 PROCEDURE: Noncontrast MRI of the thoracic spine. HISTORY: Back trauma, no prior imaging (Age >= 14y) Bacteremia. COMPARISON: CT chest abdomen and pelvis 09/18/2024. TECHNIQUE: Multiplanar multisequence MRI of the thoracic spine withoutintravenous contrast administration. FINDINGS: Limited study secondary to patient motion. Mild cardiomegaly. Moderate right and small left pleural effusions. Mildly exaggerated thoracic kyphosis. Degenerative changes of the lumbarspine and a lumbar levoscoliosis with superior L3 and inferior L1 endplatefractures. There is also mild superior endplate deformity at T5. Totalspine T2 fat-saturated images were performed and there is no marrow edemaassociated with any of these fractures, suggesting that they are chronic.There is trace fluid signal in the L2-3 intervertebral disc spacesuspected to be degenerative; no convincing evidence ofdiscitis/osteomyelitis. No significant spinal stenosis. The neural foramina not well evaluateddue to motion and scoliosis. Normal position of the conus at approximately L1. Assessment of the cordis limited by motion but there is no visible cord signal abnormality. Novisible epidural fluid collection. IMPRESSION: 1. No convincing evidence of discitis/osteomyelitis. 2. Chronic endplate fracture deformities at T5, L1, and L3. Exaggeratedthoracic kyphosis. 3. Bilateral pleural effusions. -------- FINAL REPORT -------- Dictated By: Kirill Arguelles Dictated Date: 09/21/2024 08:27 ET Assigned Physician: Kirill Arguelles Reviewed and Electronically Signed By: Kirill Arguelles Signed Date: 09/21/2024 08:47 ET Workstation ID: [id number] Transcribed By: Self Edit Transcribed Date: 09/21/2024 08:27 ET Abran JOSEPH IMG MRI PROCEDURE S * (ABNORMAL) RBC morphology review (09/20/2024 8:38 AM EST) Rbc Morphology See comment( A) Consistent with indices, Normal for LAB HEMETOLOGY METHOD 09/20/2024 10:07 AM EST [facility] Comment:RBC: Morphology agre es with CBC Platelet Morphology - WAM See Note(A) Normal LAB HEMETOLOGY METHOD 09/20/2024 10:07 AM EST [facility] Comment:PLT: Normal Blood Venous blood specimen / Unknown Venipuncture / Unknown 09/20/2024 8:38 AM EST 09/20/2024 9:05 AM EST Abran JOSEPH LAB BLOOD ORDERAB LES [facility] [address] [place] [address], * (ABNORMAL) Sedimentation rate (09/20/2024 8:38 AM EST) Only the most recent of5 resultswithin the time period is included. Sed Rate 121(H) 0 - 30 mm/hr LAB HEMETOLOGY METHOD 09/20/2024 9:31 AM EST [facility] Blood Venous blood specimen / Unknown Venipuncture / Unknown 09/20/2024 8:38 AM EST 09/20/2024 9:05 AM EST Emiliano JOSEPH LAB BLOOD ORDERABLE S Performing Organization Address City/[facility]/ZIP Co de Phone Number [facility] [address] [place] [address], [place] [phone] * Culture blood (09/19/2024 4:34 PM EST) Only the most recent of8 resultswithin the time period is included. Culture, Blood No growth at 5 days LAB MICROBIOLOGY METHOD 09/24/2024 5:01 PM EST [facility] Blood Specimen from bone marrow obtained by aspiration / Unknown Venipuncture / Unknown 09/19/2024 4:34 PM EST 09/19/2024 4:41 PM EST Abran JOSEPH LAB MICROBIOLOGY - GENERAL ORDERABLES Performing Organization Address [facility]/ZIP Co de Phone Number [facility] [address] [place] [address], [place] [phone] * (ABNORMAL) Culture body fluid with gram stain (09/19/2024 10:31 AM EST) Only the most recent of2 resultswithin the time period is included. Fluid Culture Methicillin-Sensiti ve Staphylococcus aureus(A) SANDRA 09/23/2024 10:05 AM EST [facility] Comment: The organism value for this result has been updated. These results have been appended to the previously preliminary verified report. Edited result: Previously reported as Staphylococcus aureus on 09/20/2024 at 1312 EST. Gram Stain Result No epithelial cells seen(A) 09/23/2024 10:05 AM EST [facility] Gram Stain Result Many Polymorphonuclear leukocytes(A) 09/23/2024 10:05 AM EST [facility] Gram Stain Result Few Gram positive cocci in clusters(A) 09/23/2024 10:05 AM EST [facility] Synovial Fluid Structure of right shoulder region / Unknown 09/19/2024 10:31 AM EST 09/19/2024 10:50 AM EST Narrative Organism Antibiotic Method Susceptibility Methicillin-Sensitive Staphylococcus aureus Benzylpenicillin SANDRA >=0.5 ug/ml: Resistant Methicillin-Sensitive Staphylococcus aureus Oxacillin SANDRA 0.5 ug/ml: Susceptible Methicillin-Sensitive Staphylococcus aureus Gentamicin SANDRA <=0.5 ug/ml: Susceptible Methicillin-Sensitive Staphylococcus aureus Ciprofloxacin SANDRA <=0.5 ug/ml: Susceptible Methicillin-Sensitive Staphylococcus aureus Levofloxacin SANDRA 0.25 ug/ml: Susceptible Methicillin-Sensitive Staphylococcus aureus Moxifloxacin SANDRA <=0.25 ug/ml: Susceptible Methicillin-Sensitive Staphylococcus aureus Erythromycin SANDRA >=8 ug/ml: Resistant Methicillin-Sensitive Staphylococcus aureus Clindamycin SANDRA <=0.25 ug/ml: Resistant Methicillin-Sensitive Staphylococcus aureus Quinupristin/Dalfopristin SANDRA 0.5 ug/ml: Susceptible Methicillin-Sensitive Staphylococcus aureus Linezolid SANDRA 2 ug/ml: Susceptible Methicillin-Sensitive Staphylococcus aureus Vancomycin SANDRA 1 ug/ml: Susceptible Methicillin-Sensitive Staphylococcus aureus Tetracycline SANDRA <=1 ug/ml: Susceptible Methicillin-Sensitive Staphylococcus aureus Rifampin SANDRA <=0.5 ug/ml: Susceptible Methicillin-Sensitive Staphylococcus aureus Trimethoprim/Sulfamethoxazo le SANDRA <=10 ug/ml: Susceptible Henri Mcdowell MD LAB MICROBIOLOGY - GENERAL ORDERABLES [facility] ([facility]) [facility] [address] [place] [address], * TH AN ENDOTRACHEAL(NO CHARGE) (09/19/2024 9:48 AM EST) Narrative Charles Mclean CRNA - 09/19/2024 9:48 AM EST Charles Mclean CRNA ? 09/19/2024 ??9:48 AM General Information and Staff Patient location during procedure: OR Performed by: hCarles Mclean CRNA Authorized by: Hans Rivera DO ?? Intubation Airway not difficult Urgency: elective Final Airway Details Successful airway: ETT Cuffed: yes Successful intubation technique: video laryngoscopy Endotracheal tube insertion site: oral Blade: Pooja Blade size: #3 ETT size (mm): 7.0 Cormack-Lehane Classification: grade I - full view of glottis Placement verified by: chest auscultation, capnometry and palpation of cuff Measured from: gums ETT to gums (cm): 21 Number of attempts at approach: 1 Ventilation between attempts: noneFinal airway type: endotracheal airway Indications and Patient Condition Indications for airway management: anesthesia Spontaneous Ventilation: absent Sedation level: Yes Preoxygenated: yes Soft Tissue Damage: No Dentition Unchanged: Yes Patient position: neutral MILS maintained throughout Mask difficulty assessment: 2 - vent by mask + OA or adjuvant +/- NMBA Hans Rivera DO ANESTHESIA ORDERABLE S * (ABNORMAL) Magnesium (09/19/2024 5:46 AM EST) Only the most recent of3 resultswithin the time period is included. Pathologist [facility] Magnesium 1.8(L) 1.9 - 2.6 mg/dL LAB CHEMISTRY METHOD 09/19/2024 7:36 AM EST [facility] Blood Venous blood specimen / Unknown Venipuncture / Unknown 09/19/2024 5:46 AM EST 09/19/2024 6:51 AM EST Abran JOSEPH LAB BLOOD ORDERAB LES [facility] [address] [place] [address], * (ABNORMAL) Comprehensive metabolic panel (09/19/2024 5:46 AM EST) Only the most recent of7 resultswithin the time period is included. Sodium 137 133 - 145 mmol/L LAB CHEMISTRY METHOD 09/19/2024 7:38 AM [facility] Potassium 3.9 3.5 - 5.5 mmol/L LAB CHEMISTRY METHOD 09/19/2024 7:38 AM [facility] Chloride 102 96 - 110 mmol/L LAB CHEMISTRY METHOD 09/19/2024 7:38 AM [facility] CO2 23 21 - 32 mmol/L LAB CHEMISTRY METHOD 09/19/2024 7:38 AM [facility] Anion Gap 12(H) 3 - 11 LAB CHEMISTRY METHOD 09/19/2024 7:38 AM [facility] Glucose 64(L) 70 - 100 mg/dL LAB CHEMISTRY METHOD 09/19/2024 7:38 AM [facility] BUN 12 5 - 25 mg/dL LAB CHEMISTRY METHOD 09/19/2024 7:38 AM [facility] Creatinine <0.15(L) 0.50 - 1.10 mg/dL LAB CHEMISTRY METHOD 09/19/2024 7:38 AM [facility] eGFR LAB CHEMISTRY METHOD 09/19/2024 7:38 AM [facility] Comment:Creatinine above or below reportable range; unable to calculate eGFR. BUN/Creatinine Ratio LAB CHEMISTRY METHOD 09/19/2024 7:38 AM [facility] Comment:Creatinine and/or Ur ea Nitrogen (BUN) above or below reportable range; unable to calculate BUN/Creatinine Ratio. Calcium 7.9(L) 8.5 - 10.5 mg/dL LAB CHEMISTRY METHOD 09/19/2024 7:38 AM [facility] AST (SGOT) 27 10 - 42 unit/L LAB CHEMISTRY METHOD 09/19/2024 7:38 AM [facility] ALT (SGPT) <6(L) 10 - 60 unit/L LAB CHEMISTRY METHOD 09/19/2024 7:38 AM [facility] Alkaline Phosphatase 100 42 - 121 unit/L LAB CHEMISTRY METHOD 09/19/2024 7:38 AM EST [facility] Total Protein 5.5(L) 6.0 - 8.0 g/dL LAB CHEMISTRY METHOD 09/19/2024 7:38 AM EST [facility] Albumin 1.5(L) 3.2 - 5.0 g/dL LAB CHEMISTRY METHOD 09/19/2024 7:38 AM EST [facility] Total Bilirubin 0.3 0.0 - 1.4 mg/dL LAB CHEMISTRY METHOD 09/19/2024 7:38 AM EST [facility] Blood Venous blood specimen / Unknown Venipuncture / Unknown 09/19/2024 5:46 AM EST 09/19/2024 6:51 AM EST Abran JOSEPH LAB BLOOD ORDERAB LES [facility] [address] [place] [address], * (ABNORMAL) TRANSTHORACIC ECHOCARDIOGRAM (TTE) COMPLETE W/ CONTRAST (09/18/2024 1:58 PM EST) LV EDV (A2C) 147 mL CV PACS LV EDV (A4C) 169 mL CV PACS LV Diastolic Volume (BP) 160(A) 46 - 106 mL CV PACS LV ESV (A2C) 111 mL CV PACS LV ESV (A4C) 115 mL CV PACS LV Systolic Volume (BP) 117(A) 14 - 42 mL CV PACS IVSD 0.9 0.6 - 0.9 cm CV PACS LVIDD 5.0 3.8 - 5.2 cm CV PACS LVIDS 4.2(A) 2.2 - 3.5 cm CV PACS LVOT Diameter 1.8 cm CV PACS LVOT Mean Alfred 0.7 m/s CV PACS LVOT Mean Grad 2 mmHg CV PACS LVOT Peak VTI 17.2 cm CV PACS LVOT Peak Alfred 1.0 m/s CV PACS LVOT Peak Gradient 4 mmHg CV PACS LVPWD 1.1(A) 0.6 - 0.9 cm CV PACS MV E' Tissue Velocity Lateral 11 cm/s CV PACS MV E' Tissue Velocity Septal 7 cm/s CV PACS Ejection Fraction (A2C) 25 % CV PACS Ejection Fraction (A4C) 32 % CV PACS Ejection Fraction (BP) 27 % CV PACS LVOT Area 2.5 cm2 CV PACS LVOT Stroke Volume 44 mL CV PACS Left Atrium Minor [place] 5.1 cm CV PACS Left Atrium Major [place] 4.2 cm CV PACS LA Area Sys (A2C) 16 cm2 CV PACS LA Area Sys (A4C) 13 cm2 CV PACS LA Volume (BP) 42 mL CV PACS RA Area 14.7 cm2 CV PACS RA 2D Volume 46 mL CV PACS AV Regurgitation PHT 236 ms CV PACS AR Max Velocity 4.0 m/s CV PACS Aortic Sinus Valsalva 3.5 cm CV PACS Ascending Aorta 3.4 cm CV PACS MR VTI 154.0 cm CV PACS MR PISA Max Velocity 4.7 m/s CV PACS MR Peak Gradient 89 mmHg CV PACS MV Deceleration [place] 4.1 m/s2 CV PACS E Wave Deceleration Time 144 119 - 242 ms CV PACS MV PHT 42 ms CV PACS MV Peak A Alfred 1.02 m/s CV PACS MV Peak E Alfred 0.59 m/s CV PACS MV Area PHT 5.2 cm2 CV PACS RV Diastolic Basal Dimension 3.9 2.5 - 4.1 cm CV PACS RV S' 15 cm/s CV PACS TAPSE 17 mm CV PACS TR Peak Velocity 3.34 m/s CV PACS TR Peak Gradient 45 mmHg CV PACS LV ESV Index (A4C) 81 mL/m2 CV PACS LV EDV Index (A4C) 119 mL/m2 CV PACS E/E' Ratio Septal 8 CV PACS E/E' Ratio Averaged 7 CV PACS LVOT Stroke Index 31 mL/m2 CV PACS Relative Wall Thickness ratio 0.44 CV PACS FS 16 % CV PACS LV Mass 2D 182 g CV PACS Ascending Aorta Index 2.39 cm/m2 CV PACS LVOT flow 178 mL/s CV PACS RA 2D Volume Index 32 mL/m2 CV PACS LVIDD Index 3.52 cm/m2 CV PACS LVIDS Index 2.96 cm/m2 CV PACS E/A Ratio 0.6 CV PACS E/E' Ratio Lateral 5 CV PACS LV Systolic Volume Index (BP) 82 mL/m2 CV PACS LV Diastolic Volume Index (BP) 113 mL/m2 CV PACS LA Volume Index (BP) 30 mL/m2 CV PACS LV Mass Index 2D 128 g/m2 CV PACS LV EDV Index (A2C) 104 mL/m2 CV PACS LV ESV Index (A2C) 78 mL/m2 CV PACS BSA 1.41 m2 CV PACS Right Ventricular Peak Systolic Pressure 53 mmHg CV PACS Est. RA Pressure 8 mmHg CV PACS Anatomical Region Laterality Modality Ultrasound Narrative 09/18/2024 4:44 PM EST ?Left ventricle cavity size is normal. Left ventricle wall thickness is normal.Severe LV global hypokinesis is present.Left ventricular systolic function is severely decreased with an ejection fraction of 25-30%.. ?? Definity contrast is used to delineate endocardial borders.The base of the left ventricle still's appears to have decent contractility. ??Its mainly the mid to apex of the left ventricle is hypokinetic. ??This could be a Takotsubo cardiomyopathic process ?Right ventricle cavity is normal. Right ventricular systolic function is normal. ?Tricuspid??Valve: Estimated RA pressure is 8 mmHg. The RVSP is estimated at 53 mmHg. ?Aortic??Valve: There is moderate regurgitation. ?Mild to moderate mitral insufficiency is also documented. Left Ventricle Left ventricle cavity size is normal. Wall thickness is normal. Systolic function is severely decreased with an ejection fraction of 25-30%. Severe global LV hypokinesis is present. Right Ventricle Right ventricle cavity appears normal. Systolic function is normal. Left Atrium Left atrium cavity size is normal. Right Atrium Right atrium cavity is normal. Mitral Valve The leaflets are mildly thickened. There is mild annular calcification. There is mild regurgitation. There is no evidence of mitral valve stenosis. Tricuspid Valve The leaflets exhibit normal excursion. There is mild regurgitation. There is no evidence of tricuspid valve stenosis. Estimated RA pressure is 8 mmHg. The RVSP is estimated at 53 mmHg. Aortic Valve The aortic valve is trileaflet. There is moderate regurgitation. There is no evidence of aortic valve stenosis. Pulmonic Valve Visualized portions of the pulmonic valve appear normal. There is no regurgitation or stenosis. Ascending Aorta The aorta appears normal in size. Pericardium Pericardium appears normal. There is no pericardial effusion. Study Details Overall the study quality was adequate. Definity contrast was given to enhance imaging. Abran JOSEPH CV ECHO PROCEDURE S * US Asp Abscess/Hematoma/Bulla/Cyst (09/18/2024 12:05 PM EST) Anatomical Region Laterality Modality Body Ultrasound 09/18/2024 1:04 PM EST Narrative 09/19/2024 2:55 PM EST INDICATION: Right shoulder effusion TECHNIQUE: Written informed consent obtained. Patient placed supine on the ultrasound stretcher. Multiple images obtained of the right shoulder. After review of the images, the appropriate area of skin was localized under real-time ultrasound. This region was draped and prepped in the usual sterile fashion. 2% buffered lidocaine was used as a local anesthetic. Under real-time ultrasound guidance, needle aspiration was performed using open bore 18-gauge needle attached to 10 cc syringe. A total of 1cc of blood-tinged synovial type fluid was aspirated. Final pathology pending. The patient tolerated the procedure well and left the department in stable condition without immediate complications. FINDINGS: CT upper extremity with contrast September 17, 2024 Images obtained during needle biopsy demonstrate tip of needle within right shoulder effusion CONCLUSION: Ultrasound-guided right shoulder aspiration. -------- FINAL REPORT -------- Dictated By: Rosaura Quintanilla Dictated Date: 09/18/2024 13:04 ET Assigned Physician: Summer Sepulveda Reviewed and Electronically Signed By: Summer Sepulveda Signed Date: 09/19/2024 14:55 ET Workstation ID: [id number] Transcribed By: Self Edit Transcribed Date: 09/18/2024 13:09 ET Resident/JAKE/BEE TENDER: Rosaura Quintanilla Procedure Note Summer Sepulveda MD - 09/19/2024 INDICATION: Right shoulder effusion TECHNIQUE: Written informed consent obtained. Patient placed supine on theultrasound stretcher. Multiple images obtained of the right shoulder.After review of the images, the appropriate area of skin was localizedunder real-time ultrasound. This region was draped and prepped in theusual sterile fashion. 2% buffered lidocaine was used as a localanesthetic. Under real-time ultrasound guidance, needle aspiration wasperformed using open bore 18-gauge needle attached to 10 cc syringe. Atotal of 1cc of blood-tinged synovial type fluid was aspirated. Finalpathology pending. The patient tolerated the procedure well and left thedepartment in stable condition without immediate complications. FINDINGS: CT upper extremity with contrast September 17, 2024 Images obtained during needle biopsy demonstrate tip of needle withinright shoulder effusion CONCLUSION: Ultrasound-guided right shoulder aspiration. -------- FINAL REPORT -------- Dictated By: Rosaura Quintanilla Dictated Date: 09/18/2024 13:04 ET Assigned Physician: Summer Sepulveda Reviewed and Electronically Signed By: Summer Sepulveda Signed Date: 09/19/2024 14:55 ET Workstation ID: [id number] Transcribed By: Self Edit Transcribed Date: 09/18/2024 13:09 ET Resident/PA/BEE TENDER: Rosaura Quintanilla Rosaura JOSEPH IMG US PROCEDURES * CT Chest/Abdomen/Pelvis w Contrast (09/18/2024 11:35 AM EST) Anatomical Region Laterality Modality Body Computed Tomogra phy 09/18/2024 11:4 3 AM EST Impressions 09/18/2024 11:58 AM EST 1. ??Again noted is a large multilobulated right glenohumeral joint effusion with irregular synovial enhancement. ??There is prominent bony irregularity of the humeral head and less prominent irregularity of the glenoid. ??The findings correlate with the provided history of a septic joint, with the bony findings raising the possibility of osteomyelitis. 2. ??Moderate right and small left pleural effusions. ??Anasarca. 3. ??Age-indeterminate endplate fractures at L1 and L3. -------- FINAL REPORT -------- Dictated By: Kirill Arguelles Dictated Date: 09/18/2024 11:43 ET Assigned Physician: Kirill Arguelles Reviewed and Electronically Signed By: Kirill Arguelles Signed Date: 09/18/2024 11:58 ET Workstation ID: [id number] Transcribed By: Self Edit Transcribed Date: 09/18/2024 11:52 ET Narrative 09/18/2024 11:[address] chest, abdomen, and pelvis, 09/18/2024. HISTORY: Bacteremia. COMPARISON: CT chest 06/26/2024. TECHNIQUE: Contrast-enhanced CT of the chest, abdomen, and pelvis with coronal and sagittal reformats. IV contrast dose: 75 mL ISOVUE-370. Dose length product: 461 ??mGy-cm. FINDINGS: Lungs/pleura: Airways are normal in caliber. ??Moderate right and small left pleural effusions with associated compressive atelectasis. ??The right effusion extends into the major fissure. ??Thin linear markings in the upper lobes represent scarring and/or atelectasis. Mediastinum/viola: No mass or adenopathy. Thoracic vasculature: Extensive atherosclerotic calcifications of the aorta and great vessels. ??Pulmonary arteries are normal in caliber. ??No central pulmonary embolism. Cardiac: Mild cardiomegaly. ??Extensive coronary artery calcifications. Chest wall: Moderate anasarca. ??Mildly prominent supraclavicular and axillary nodes. ??The largest measures just under 1 cm in short axis and is located in the left axilla. ??These are suspected to be reactive. Liver: No focal lesion. ??Portal veins are patent. Biliary: Normal gallbladder and biliary tree. Pancreas: Normal. Spleen: Normal. Adrenal glands: Normal. Kidneys: Normal appearance of the kidneys. ??There is a small amount of excreted contrast in the proximal collecting systems which could potentially represent very small calculi. ??There is no visible collecting system calculus. Retroperitoneum: No mass or adenopathy. Abdominal vasculature: Extensive atherosclerotic calcifications. Bowel/mesentery: No obstruction or adenopathy. ??No mass or ascites. Abdominal wall: Moderate anasarca. Pelvic nodes: The pelvis is partially obscured by streak artifact. ??No visible adenopathy. Pelvic organs: The urinary bladder is distended with excreted intravenous contrast. ??Mild mural trabeculation. ??Streak artifact partially obscures the pelvis. ??Uterus is not seen and suspected to be absent. ??Neither ovary visible. Bones: Again demonstrated is a multilobulated right glenohumeral joint effusion with significant bony remodeling, possibly erosion, of the humeral head and to a lesser degree the glenoid. ??There is thick irregular synovial enhancement. ??The findings correlate with a provided history of septic arthritis. ??There are prominent degenerative changes of the left glenohumeral joint. ??Bilateral hip arthroplasties. ??Partially visible side plate and fixation screw hardware in the proximal left femur. ??Diffuse degenerative changes of the spine. ??Age indeterminate superior L3 and inferior L1 endplate fracture deformities/large Schmorl's nodes. Procedure Note Kirill Arguelles MD - 09/18/2024 CT chest, abdomen, and pelvis, 09/18/2024. HISTORY: Bacteremia. COMPARISON: CT chest 06/26/2024. TECHNIQUE: Contrast-enhanced CT of the chest, abdomen, and pelvis withcoronal and sagittal reformats. IV contrast dose: 75 mL ISOVUE-370. Dose length product: 461 mGy-cm. FINDINGS: Lungs/pleura: Airways are normal in caliber. Moderate right and smallleft pleural effusions with associated compressive atelectasis. The righteffusion extends into the major fissure. Thin linear markings in theupper lobes represent scarring and/or atelectasis. Mediastinum/viola: No mass or adenopathy. Thoracic vasculature: Extensive atherosclerotic calcifications of theaorta and great vessels. Pulmonary arteries are normal in caliber. Nocentral pulmonary embolism. Cardiac: Mild cardiomegaly. Extensive coronary artery calcifications. Chest wall: Moderate anasarca. Mildly prominent supraclavicular andaxillary nodes. The largest measures just under 1 cm in short axis and islocated in the left axilla. These are suspected to be reactive. Liver: No focal lesion. Portal veins are patent. Biliary: Normal gallbladder and biliary tree. Pancreas: Normal. Spleen: Normal. Adrenal glands: Normal. Kidneys: Normal appearance of the kidneys. There is a small amount ofexcreted contrast in the proximal collecting systems which couldpotentially represent very small calculi. There is no visible collectingsystem calculus. Retroperitoneum: No mass or adenopathy. Abdominal vasculature: Extensive atherosclerotic calcifications. Bowel/mesentery: No obstruction or adenopathy. No mass or ascites. Abdominal wall: Moderate anasarca. Pelvic nodes: The pelvis is partially obscured by streak artifact. Novisible adenopathy. Pelvic organs: The urinary bladder is distended with excreted intravenouscontrast. Mild mural trabeculation. Streak artifact partially obscuresthe pelvis. Uterus is not seen and suspected to be absent. Neither ovaryvisible. Bones: Again demonstrated is a multilobulated right glenohumeral jointeffusion with significant bony remodeling, possibly erosion, of thehumeral head and to a lesser degree the glenoid. There is thick irregularsynovial enhancement. The findings correlate with a provided history ofseptic arthritis. There are prominent degenerative changes of the leftglenohumeral joint. Bilateral hip arthroplasties. Partially visible sideplate and fixation screw hardware in the proximal left femur. Diffusedegenerative changes of the spine. Age indeterminate superior L3 andinferior L1 endplate fracture deformities/large Schmorl's nodes. IMPRESSION: 1. Again noted is a large multilobulated right glenohumeral jointeffusion with irregular synovial enhancement. There is prominent bonyirregularity of the humeral head and less prominent irregularity of theglenoid. The findings correlate with the provided history of a septicjoint, with the bony findings raising the possibility of osteomyelitis. 2. Moderate right and small left pleural effusions. Anasarca. 3. Age-indeterminate endplate fractures at L1 and L3. -------- FINAL REPORT -------- Dictated By: Kirill Arguelles Dictated Date: 09/18/2024 11:43 ET Assigned Physician: Kirill Arguelles Reviewed and Electronically Signed By: Kirill Arguelles Signed Date: 09/18/2024 11:58 ET Workstation ID: [id number] Transcribed By: Self Edit Transcribed Date: 09/18/2024 11:52 ET Abran JOSEPH IM CT PROCEDURES * (ABNORMAL) Troponin I high sensitivity (09/18/2024 2:59 AM EST) Only the most recent of3 resultswithin the time period is included. High Sensitivity Troponin I 72(H) <=54 ng/L LAB CHEMISTRY METHOD 09/18/2024 3:49 AM EST [facility] Blood Venous blood specimen / Unknown Venipuncture / Unknown 09/18/2024 2:59 AM EST 09/18/2024 3:06 AM EST Narrative [facility] - 09/18/2024 3:49 AM EST High levels of biotin in samples may falsely decrease hsTroponin values. ??Use caution when interpreting hsTroponin results in patients taking biotin who exhibit renal impairment (eGFR <60) or in patients taking more than 20 mg/day of biotin. Katty JOSEPH LAB BLOOD ORDER ADALID [facility] [address] [place] [address], * XR Chest 1 View (09/17/2024 11:18 PM EST) Anatomical Region Laterality Modality Body Radiographic Flaca ging 09/18/2024 8:23 AM EST Impressions 09/18/2024 8:25 AM EST Slightly improved aeration of the upper lungs. ??Small bilateral pleural effusions or pleural thickening. -------- FINAL REPORT -------- Dictated By: Kirill Arguelles Dictated Date: 09/18/2024 08:23 ET Assigned Physician: Kirill Arguelles Reviewed and Electronically Signed By: Kirill Arguelles Signed Date: 09/18/2024 08:25 ET Workstation ID: [id number] Transcribed By: Self Edit Transcribed Date: 09/18/2024 08:23 ET Narrative 09/18/2024 8:25 AM EST AP view of the chest, 09/18/2024. HISTORY: Cough, new onset. COMPARISON: 08/13/2024. FINDINGS: The patient's head obscures the left apex. ??Slight blunting of the costophrenic angles suggesting thickening or trace pleural fluid. ??Linear markings in the upper lung zones appear slightly improved compared with the previous study. ??Atherosclerotic calcifications of the aorta. ??Deformity of both humeral heads, right greater than left. ??Generalized osteopenia. Procedure Note Kirill Arguelles MD - 09/18/2024 AP view of the chest, 09/18/2024. HISTORY: Cough, new onset. COMPARISON: 08/13/2024. FINDINGS: The patient's head obscures the left apex. Slight blunting of thecostophrenic angles suggesting thickening or trace pleural fluid. Linearmarkings in the upper lung zones appear slightly improved compared withthe previous study. Atherosclerotic calcifications of the aorta.Deformity of both humeral heads, right greater than left. Generalizedosteopenia. IMPRESSION: Slightly improved aeration of the upper lungs. Small bilateral pleuraleffusions or pleural thickening. -------- FINAL REPORT -------- Dictated By: Kirill Arguelles Dictated Date: 09/18/2024 08:23 ET Assigned Physician: Kirill Arguelles Reviewed and Electronically Signed By: Kirill Arguelles Signed Date: 09/18/2024 08:25 ET Workstation ID: [id number] Transcribed By: Self Edit Transcribed Date: 09/18/2024 08:23 ET Katty JOSEPH IMG XR PROCEDUR ES * CT Upper Extremity w Contrast Right (09/17/2024 8:43 PM EST) Anatomical Region Laterality Modality Upper Extremities, Humerus Right Compu wesley Tomography 09/17/2024 9:34 PM EST Impressions 09/17/2024 9:34 PM EST Impression: 1. 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 Septic arthritis can not be excluded. Consider joint aspiration. 2. Chronic appearing changes involving the proximal humerus, glenoid, scapula, as well as distal clavicle. However, given this scenario, the possibility of osteomyelitis can not be excluded. This document has been electronically signed by: Tom Peña MD on 09/17/2024 21:34:39 Narrative 09/17/2024 9:34 PM EST Exam: Contrast-enhanced CT of the right shoulder, with multiplanar reformats. Comparison: None. Findings: There is marked deformity of the humeral head with multifocal erosions, as well as chronic erosion of the inferior acromial surface and glenoid erosions, compatible with a longstanding arthropathy. No definable fractures or traumatic malalignment. Erosions described above appear likely chronic, with no clearly definable cortical resorption to suggest osteomyelitis, however osteomyelitis can not be excluded. Soft tissues: There is a large multiloculated glenohumeral joint effusion with scattered punctate loose bodies, likely sequela of longstanding nonspecific synovitis although septic arthritis can not be excluded. Fluid extends superiorly, the acromioclavicular joint space (4; 16), likely chronic finding. Visualized lungs reveal right upper lobe atelectasis or scarring. No focal consolidation. There is a small right pleural effusion. Procedure Note Tom Peña MD - 09/17/2024 Exam: Contrast-enhanced CT of the right shoulder, with multiplanar reformats. Comparison: None. Findings: There is marked deformity of the humeral head with multifocal erosions, as well as chronic erosion of the inferior acromial surfaceand glenoid erosions, compatible with a longstanding arthropathy. Nodefinable fractures or traumatic malalignment. Erosions described above appear likely chronic, with no clearly definable cortical resorption to suggest osteomyelitis, however osteomyelitis can not be excluded. Soft tissues: There is a large multiloculated glenohumeral jointeffusion with scattered punctate loose bodies, likely sequela of longstanding nonspecific synovitis although septic arthritis can not be excluded.Fluid extends superiorly, the acromioclavicular joint space (4;16), likely chronic finding. Visualized lungs reveal right upper lobe atelectasis or scarring. Nofocal consolidation. There is a small right pleural effusion. IMPRESSION: Impression: 1. 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 Septic arthritis can not be excluded. Consider joint aspiration. 2. Chronic appearing changes involving the proximal humerus, glenoid, scapula, as well as distal clavicle. However, given this scenario, the possibility of osteomyelitis can not be excluded. This document has been electronically signed by: Tom Peña MD on 09/17/2024 21:34:39 Rich Varner MD IMG CT PROCEDURES * (ABNORMAL) Blood culture pathogens molecular study (09/17/2024 4:35 PM EST) [facility] Staphylococcus aureus Detected (A) Not Detected LAB MICROBIOLOGY METHOD 09/18/2024 7:17 AM EST [facility] Blood Venous blood specimen / Unknown Venipuncture / Unknown 09/17/2024 4:35 PM EST 09/17/2024 4:46 PM EST Silvestre Kerr DO LAB MICROBIOLOGY - G ENERAL ORDERABLES Performing Organization Address [facility] Co de Phone Number [facility] [address] [place] [address], * Lactate (09/17/2024 4:35 PM EST) Only the most recent of2 resultswithin the time period is included. [facility] Lactate 1.4 0.4 - 2.0 mmol/L LAB CHEMISTRY METHOD 09/17/2024 5:13 PM EST [facility] Blood Venous blood specimen / Unknown Venipuncture / Unknown 09/17/2024 4:35 PM EST 09/17/2024 4:47 PM EST Silvestre Kerr DO LAB BLOOD ORDERABLES Performing Organization Address [facility]/ZIP Co de Phone Number [facility] [address] [place] [address], * Respiratory virus panel molecular study (09/17/2024 4:06 PM EST) Only the most recent of2 resultswithin the time period is included. [facility] Adenovirus Detection by PCR Not Detected Not Detected LAB MICROBIOLOGY METHOD 09/17/2024 5:39 PM EST [facility] Influenza A PCR Not Detected Not Detected LAB MICROBIOLOGY METHOD 09/17/2024 5:39 PM [facility] Influenza B PCR Not Detected Not Detected LAB MICROBIOLOGY METHOD 09/17/2024 5:39 PM [facility] Coronavirus 229E Not Detected Not Detected LAB MICROBIOLOGY METHOD 09/17/2024 5:39 PM [facility] Coronavirus HKU1 Not Detected Not Detected LAB MICROBIOLOGY METHOD 09/17/2024 5:39 PM [facility] Coronavirus OC43 Not Detected Not Detected LAB MICROBIOLOGY METHOD 09/17/2024 5:39 PM [facility] Coronavirus NL63 Not Detected Not Detected LAB MICROBIOLOGY METHOD 09/17/2024 5:39 PM [facility] Parainfluenza Virus 1 Not Detected Not Detected LAB MICROBIOLOGY METHOD 09/17/2024 5:39 PM [facility] Parainfluenza Virus 2 Not Detected Not Detected LAB MICROBIOLOGY METHOD 09/17/2024 5:39 PM [facility] Parainfluenza Virus 3 Not Detected Not Detected LAB MICROBIOLOGY METHOD 09/17/2024 5:39 PM [facility] Parainfluenza Virus 4 Not Detected Not Detected LAB MICROBIOLOGY METHOD 09/17/2024 5:39 PM [facility] RSV PCR Not Detected Not Detected LAB MICROBIOLOGY METHOD 09/17/2024 5:39 PM [facility] Human Metapneumovirus A and B Not Detected Not Detected LAB MICROBIOLOGY METHOD 09/17/2024 5:39 PM [facility] Rhinovirus/Entero virus Not Detected Not Detected LAB MICROBIOLOGY METHOD 09/17/2024 5:39 PM [facility] Bordetella pertussis Not Detected Not Detected LAB MICROBIOLOGY METHOD 09/17/2024 5:39 PM [facility] Bordetella parapertussis Not Detected Not Detected LAB MICROBIOLOGY METHOD 09/17/2024 5:39 PM EST [facility] Mycoplasma pneumo by PCR Not Detected Not Detected LAB MICROBIOLOGY METHOD 09/17/2024 5:39 PM EST [facility] Chlamydia pneumoniae Not Detected Not Detected LAB MICROBIOLOGY METHOD 09/17/2024 5:39 PM EST [facility] SARS COV-2 Not Detected Not Detected LAB MICROBIOLOGY METHOD 09/17/2024 5:39 PM EST [facility] Swab Both anterior nares / Unknown Non-blood Collection / Unknown 09/17/2024 4:06 PM EST 09/17/2024 4:36 PM EST Narrative [facility] - 09/17/2024 5:39 PM EST Testing was performed using the [employer] ITC Respiratory Pathogen PCR Assay. All results must be correlated with the clinical findings. Results should not be used as the sole basis for diagnosis. False Negative results may occur from the presence of sequence variants in the region targeted by the assay or the presence of inhibitors. Results may be affected by concurrent antiviral/antimicrobial therapy or levels of organisms that are below the limit of detection. Silvestre Kerr DO LAB MICROBIOLOGY - G ENERAL ORDERABLES [facility] [address] [place] [address], * XR Chest 2 Views (08/13/2024 9:35 AM EST) Only the most recent of2 resultswithin the time period is included. Anatomical Region Laterality Modality Body Radiographic Flaca ging 08/13/2024 10:0 6 AM EST Impressions 08/13/2024 10:08 AM EST Scattered airspace opacities are again noted in the upper chest bilaterally, greater on the right. ??This is similar to prior radiographs in August and June. ??Suggestion of small right-sided pleural effusion. ??Mediastinum appears within normal limits. -------- FINAL REPORT -------- Dictated By: Henri Navarro Dictated Date: 08/13/2024 10:06 ET Assigned Physician: Henri Navarro Reviewed and Electronically Signed By: Henri Navarro Signed Date: 08/13/2024 10:08 ET Workstation ID: [id number] Transcribed By: Self Edit Transcribed Date: 08/13/2024 10:06 ET Narrative 08/13/2024 10:08 AM EST Frontal and lateral view of the chest COMPARISON: Chest radiograph August 08. ??Chest radiograph June [address] June 26. INDICATION: Back and chest pain Procedure Note Henri Navarro MD - 08/13/2024 Frontal and lateral view of the chest COMPARISON: Chest radiograph August 08. Chest radiograph June [address] June 26. INDICATION: Back and chest pain IMPRESSION: Scattered airspace opacities are again noted in the upper chestbilaterally, greater on the right. This is similar to prior radiographsin August and June. Suggestion of small right-sided pleuraleffusion. Mediastinum appears within normal limits. -------- FINAL REPORT -------- Dictated By: Henri Navarro Dictated Date: 08/13/2024 10:06 ET Assigned Physician: Henri Navarro Reviewed and Electronically Signed By: Henri Navarro Signed Date: 08/13/2024 10:08 ET Workstation ID: [id number] Transcribed By: Self Edit Transcribed Date: 08/13/2024 10:06 ET Rich Bal MD IMG XR PROCEDURES * (ABNORMAL) Anti-Xa - Every 6 Hours (08/12/2024 4:24 AM EST) Only the most recent of12 resultswithin the time period is included. Heparin Anti-Xa 0.04(L) 0.30 - 0.70 I Unit/mL LAB COAGULATION METHOD 08/12/2024 4:53 AM EST [facility] Blood Venous blood specimen / Unknown Venipuncture / Unknown 08/12/2024 4:24 AM EST 08/12/2024 4:29 AM EST Narrative [facility] - 08/12/2024 4:53 AM EST Therapeutic range listed is for Unfractionated Heparin. LMW Heparin therapeutic range: 0.50-1.20 IU/mL Henri Chowdary MD LAB BLOOD ORDERABLE S Performing Organization Address [facility]/ZIP Co de Phone Number [facility] [address] [place] [address], [place] [phone] * SST tube (08/11/2024 4:30 AM EST) Extra Tube Hold for add-ons. 08/11/2024 6:01 AM EST [facility] Comment:Auto resulted. Blood Venous blood specimen / Unknown 08/11/2024 4:30 AM EST 08/11/2024 4:35 AM EST Rich Bal MD LAB BLOOD ORDERABLES Performing Organization Address [facility]/ZIP Co de Phone Number [facility] [address] [place] [address], [place] [phone] * Lavender tube (08/11/2024 4:30 AM EST) Only the most recent of2 resultswithin the time period is included. Extra Tube Hold for add-ons. 08/11/2024 6:01 AM EST [facility] Comment:Auto resulted. Blood Venous blood specimen / Unknown 08/11/2024 4:30 AM EST 08/11/2024 4:35 AM EST Rich Bal MD LAB BLOOD ORDERABLES Performing Organization Address City/[facility]/ZIP Co de Phone Number [facility] [address] [place] [address], [place] [phone] * (ABNORMAL) Iron and TIBC (08/09/2024 10:41 AM EST) Only the most recent of3 resultswithin the time period is included. Iron 18(L) 40 - 150 mcg/dL LAB CHEMISTRY METHOD 08/09/2024 11:45 AM EST [facility] Comment:Lipemia present TIBC 277 250 - 450 mcg/dL LAB CHEMISTRY METHOD 08/09/2024 11:45 AM [facility] Iron Saturation 6(L) 15 - 50 % LAB CHEMISTRY METHOD 08/09/2024 11:45 AM [facility] Blood Venous blood specimen / Unknown Venipuncture / Unknown 08/09/2024 10:41 AM EST 08/09/2024 10:54 AM EST Gunner Pfeiffer MD LAB BLOOD ORDERABLES Performing Organization Address [facility]/ZIP Co de Phone Number [facility] [address] [place] [address], * Ferritin (08/09/2024 10:41 AM EST) Only the most recent of3 resultswithin the time period is included. Ferritin 40 8 - 252 ng/mL LAB CHEMISTRY METHOD 08/09/2024 11:45 AM [facility] Blood Venous blood specimen / Unknown Venipuncture / Unknown 08/09/2024 10:41 AM EST 08/09/2024 10:54 AM EST Gunner Pfeiffer MD LAB BLOOD ORDERABLES Performing Organization Address City/[facility]/ZIP Co de Phone Number [facility] [address] [place] [address], [place] [phone] * (ABNORMAL) Procalcitonin (08/09/2024 8:12 AM EST) Only the most recent of2 resultswithin the time period is included. Procalcitonin 0.88(H) <=0.16 ng/mL LAB CHEMISTRY METHOD 08/09/2024 10:22 AM EST [facility] Blood Venous blood specimen / Unknown Venipuncture / Unknown 08/09/2024 8:12 AM EST 08/09/2024 8:46 AM EST Narrative [facility] - 08/09/2024 10:22 AM EST Procalcitonin > 2.00 ng/ml: Procalcitonin Levels above 2.00 ng/ml, on the first day of ICU admission represent a high risk for progression to severe sepsis and/or septic shock. Procalcitonin < 0.50 ng/ml: Procalcitonin levels below 0.50 ng/ml on the first day of ICU admission represent a low risk for progression to severe sepsis and/or septic shock. Concentrations <0.5 ng/mL do not exclude an infection, on account of local ized infections (without systemic signs) which can be associated with such low concentrations, or a systemic infection in its initial stages (<6 hours). Furthermore, increased procalcitonin can occur without infection. PCT concentrations between 0.5 and 2.0 ng/mL should be interpreted taking into account the patient's history. It is recommended to retest PCT within 6-24 hours if any concentrations <2.0 ng/mL are obtained. Henri Chowdary MD LAB BLOOD ORDERABLE S Performing Organization Address City/[facility]/ZIP Co de Phone Number [facility] [address] [place] [address], * Activated Partial Thromboplastin Time - STAT (08/09/2024 5:31 AM EST) aPTT 28.2 24.1 - 39.3 sec LAB COAGULATION METHOD 08/09/2024 6:05 AM EST [facility] Blood Venous blood specimen / Unknown Venipuncture / Unknown 08/09/2024 5:31 AM EST 08/09/2024 5:53 AM EST Sujata Peterson MD LAB BLOOD ORDERA BLES [facility] [address] [place] [address], [place] [phone] * Prothrombin Time with INR - STAT (08/09/2024 5:31 AM EST) [facility] Protime 12.3 10.6 - 13.9 sec LAB COAGULATION METHOD 08/09/2024 6:05 AM EST [facility] INR 1.0 LAB COAGULATION METHOD 08/09/2024 6:05 AM EST [facility] Blood Venous blood specimen / Unknown Venipuncture / Unknown 08/09/2024 5:31 AM EST 08/09/2024 5:53 AM EST Sujata Peterson MD LAB BLOOD ORDERA BLES Performing Organization Address [facility]/ZIP Co de Phone Number [facility] [address] [place] [address], [place] [phone] * ECG-Outside (08/09/2024) Provider Onbase MD ECG ORDERABLES * ECG-Annotated (08/09/2024) Only the most recent of2 resultswithin the time period is included. Provider Onbase MD ECG ORDERABLES * (ABNORMAL) B-type natriuretic peptide (08/08/2024 10:16 PM EST) [facility] BNP 1,083(H) <=100 pcg/mL LAB CHEMISTRY METHOD 08/08/2024 11:07 PM EST [facility] Blood Venous blood specimen / Unknown Venipuncture / Unknown 08/08/2024 10:16 PM EST 08/08/2024 10:29 PM EST Sujata Peterson MD LAB BLOOD ORDERA BLES Performing Organization Address City/[facility]/ZIP Co de Phone Number [facility] [address] [place] [address], [place] [phone] * AL CRITICAL CARE 30-74 MINUTES (08/08/2024 9:45 PM EST) Narrative Sujata Peterson MD - 08/08/2024 9:45 PM EST Sujata Peterson MD ? 08/09/2024 ??6:06 AM Critical Care Performed by: Sujata Peterson MD Authorized by: Sujata Peterson MD ?? Critical care provider statement: ??Critical care time (minutes): ??36 ??Critical care time was exclusive of: ??Separately billable procedures and treating other patients ??Critical care was necessary to treat or prevent imminent or life-threatening deterioration of the following conditions: ??Cardiac failure and acute mi ??Critical care was time spent personally by me on the following activities: ??Development of treatment plan with patient or surrogate, obtaining history from patient or surrogate, examination of patient, evaluation of patient's response to treatment, ordering and performing treatments and interventions, ordering and review of laboratory studies, ordering and review of radiographic studies, pulse oximetry, re-evaluation of patient's condition and review of old charts ??Care discussed with: admitting provider ?? Sujata Peterson MD IN CLINIC/BEDSID E ORDERABLES * Urinalysis with reflex microscopic (07/20/2024 5:45 AM EST) Specific [place] Urine 1.014 1.003 - 1.030 LAB URINALYSIS - AUTOMATED METHOD 07/20/2024 12:33 PM [facility] pH, Urine 6.0 5.0 - 8.0 pH LAB URINALYSIS - AUTOMATED METHOD 07/20/2024 12:33 PM [facility] Leukocytes, Urine Negative Negative LAB URINALYSIS - AUTOMATED METHOD 07/20/2024 12:33 PM [facility] Nitrite, Urine Negative Negative LAB URINALYSIS - AUTOMATED METHOD 07/20/2024 12:33 PM [facility] Protein, Urine Trace <=Trace mg/dL LAB URINALYSIS - AUTOMATED METHOD 07/20/2024 12:33 PM [facility] Glucose, Urine Negative Negative mg/dL LAB URINALYSIS - AUTOMATED METHOD 07/20/2024 12:33 PM [facility] Ketones, Urine Negative Negative mg/dL LAB URINALYSIS - AUTOMATED METHOD 07/20/2024 12:33 PM [facility] Urobilinogen, Urine 0.2 0.2 - 1.0 mg/dL LAB URINALYSIS - AUTOMATED METHOD 07/20/2024 12:33 PM [facility] Bilirubin, Urine Negative Negative LAB URINALYSIS - AUTOMATED METHOD 07/20/2024 12:33 PM [facility] Blood, Urine Negative Negative LAB URINALYSIS - AUTOMATED METHOD 07/20/2024 12:33 PM [facility] Urine Urine specimen obtained by clean catch procedure / Unknown Non-blood Collection / Unknown 07/20/2024 5:45 AM EST 07/20/2024 11:44 AM EST Rey Escalante MD LAB URINE ORDERABLES Performing Organization Address City/[facility]/ZIP Co de Phone Number [facility] [address] [place] [address], [place] [phone] * [place] urine culture tube (07/20/2024 5:45 AM EST) Only the most recent of3 resultswithin the time period is included. Extra Tube Hold for add-ons. 07/23/2024 3:01 PM [facility] Comment:Auto resulted. Urine Urine specimen obtained by clean catch procedure / Unknown 07/20/2024 5:45 AM EST 07/20/2024 12:10 PM EST Rey Escalante MD LAB URINE ORDERABLES Performing Organization Address City/[facility]/ZIP Co de Phone Number [facility] [address] [place] [address], [place] [phone] * (ABNORMAL) Urinalysis with reflex microscopic and culture (07/20/2024 12:00 AM EST) Only the most recent of2 resultswithin the time period is included. Specific [place] Urine 1.029 1.003 - 1.030 LAB URINALYSIS - AUTOMATED METHOD 07/21/2024 9:38 AM [facility] pH, Urine 6.5 5.0 - 8.0 pH LAB URINALYSIS - AUTOMATED METHOD 07/21/2024 9:38 AM [facility] Leukocytes, Urine Moderate(A) Negative LAB URINALYSIS - AUTOMATED METHOD 07/21/2024 9:38 AM [facility] Nitrite, Urine Negative Negative LAB URINALYSIS - AUTOMATED METHOD 07/21/2024 9:38 AM [facility] Protein, Urine Trace <=Trace mg/dL LAB URINALYSIS - AUTOMATED METHOD 07/21/2024 9:38 AM [facility] Glucose, Urine Negative Negative mg/dL LAB URINALYSIS - AUTOMATED METHOD 07/21/2024 9:38 AM [facility] Ketones, Urine Negative Negative mg/dL LAB URINALYSIS - AUTOMATED METHOD 07/21/2024 9:38 AM [facility] Urobilinogen , Urine 0.2 0.2 - 1.0 mg/dL LAB URINALYSIS - AUTOMATED METHOD 07/21/2024 9:38 AM [facility] Bilirubin, Urine Negative Negative LAB URINALYSIS - AUTOMATED METHOD 07/21/2024 9:38 AM [facility] Blood, Urine Negative Negative LAB URINALYSIS - AUTOMATED METHOD 07/21/2024 9:38 AM [facility] RBC, Urine 1.8 0 - 4 /HPF LAB URINALYSIS - AUTOMATED METHOD 07/21/2024 9:38 AM [facility] WBC, Urine 12.2(H) 0 - 4 /HPF LAB URINALYSIS - AUTOMATED METHOD 07/21/2024 9:38 AM [facility] Squamous Epithelial, Urine 72(H) 0 - 60 /LPF LAB URINALYSIS - AUTOMATED METHOD 07/21/2024 9:38 AM [facility] Bacteria, Urine Negative Negative /HPF LAB URINALYSIS - AUTOMATED METHOD 07/21/2024 9:38 AM [facility] Hyaline Casts, Urine 0.8 0 - 3 /LPF LAB URINALYSIS - AUTOMATED METHOD 07/21/2024 9:38 AM [facility] Urine Urine specimen obtained by clean catch procedure / Unknown 07/20/2024 07/21/2024 9:13 AM EST Rey Escalante MD LAB URINE ORDERABLES Performing Organization Address City/[facility]/ZIP Co de Phone Number [facility] [address] [place] [address], * Culture urine (07/20/2024 12:00 AM EST) Only the most recent of2 resultswithin the time period is included. Pathologist [facility] Culture, Urine No growth 07/22/2024 12:44 PM [facility] Urine Urine specimen obtained by clean catch procedure / Unknown 07/20/2024 07/21/2024 9:38 AM EST Rey Escalante MD LAB MICROBIOLOGY - G ENERAL ORDERABLES [facility] [address] [place] [address], [place] [phone] * [place] BB tube (07/18/2024 7:16 AM EST) Extra Tube Hold for add-ons. 07/18/2024 11:01 AM [facility] Comment:Auto resulted. Blood Venous blood specimen / Unknown Venipuncture / Unknown 07/18/2024 7:16 AM EST 07/18/2024 9:01 AM EST Rey Escalante MD LAB BLOOD ORDERABLES [facility] [address] [place] [address], [place] [phone] * Type and screen (07/18/2024 7:16 AM EST) Pathologist [facility] ABO Group A 07/18/2024 3:57 PM EST [facility] Rh Type Positive 07/18/2024 3:57 PM EST [facility] Antibody Screen Negative 07/18/2024 3:57 PM EST [facility] Blood Venous blood specimen / Unknown Venipuncture / Unknown 07/18/2024 7:16 AM EST 07/18/2024 2:19 PM EST Rey Escalante MD LAB BLOOD BANK TEST ORDERABLES Performing Organization Address [facility] Co de Phone Number [facility] [address] [place] [address], [place] [phone] * Folate (07/18/2024 7:16 AM EST) Only the most recent of2 resultswithin the time period is included. Folate 3.7 2.8 - 17.0 ng/ml LAB CHEMISTRY METHOD 07/18/2024 12:29 PM EST [facility] Blood Venous blood specimen / Unknown Venipuncture / Unknown 07/18/2024 7:16 AM EST 07/18/2024 9:05 AM EST Rey Escalante MD LAB BLOOD ORDERABLES [facility] [address] [place] [address], * Vitamin B12 (07/18/2024 7:16 AM EST) Only the most recent of2 resultswithin the time period is included. Pathologist [facility] Vitamin B-12 525 250 - 900 pcg/mL LAB CHEMISTRY METHOD 07/18/2024 12:29 PM EST [facility] Blood Venous blood specimen / Unknown Venipuncture / Unknown 07/18/2024 7:16 AM EST 07/18/2024 9:05 AM EST Rey Escalante MD LAB BLOOD ORDERABLES Performing Organization Address City/[facility]/ZIP Co de Phone Number [facility] [address] [place] [address], * Prepare RBC: 1 Units (07/18/2024 12:00 AM EST) [facility] Product Code [id number] 07/18/2024 4:23 PM EST [facility] Unit Number [id number] 07/18/20 4:23 PM EST [facility] Crossmatch Compatible 07/18/2024 4:22 PM EST [facility] Dispense Status Ready for Pick-up 07/18/2024 4:23 PM EST [facility] Unit ABO Rh APOS 07/18/2024 4:23 PM EST [facility] Unit Expiration Date Time [id number] 07/18/2024 4:23 PM EST [facility] Unit Blood Type 6200 07/18/2024 4:23 PM EST SP Blood Venous blood specimen / Unknown 07/18/2024 07/18/2024 2:19 PM EST Rey Escalante MD BLOOD BANK PRODUCT O RDERABLES Performing Organization Address City/[facility]/ZIP Co de Phone Number [facility] [address] [place] [address], [place] [phone] [facility] * CHEST PORTABLE (06/29/2024 9:24 AM EDT) Anatomical Region Laterality Modality Radiographic Flaca ging 06/29/2024 8:57 AM EDT Narrative 06/29/2024 9:24 AM EDT [facility] Diagnostic Imaging Department [address] [place] [id number] Patient: ??LOUANN BARRIENTOS ?/Age/Sex: 1950 - 74 - F Unit#: ??[id number] ? Location/Status: ??SP5MS/ADM IN ? Mnemonic/Ordering Site: ??[place] Ordering Physician: ??SULY ROBERSON MD DR Chest PORTABLE - 06/29/24 - 0912 Report Status:Signed AP view of the chest, 06/29/2024. HISTORY: Shortness of Breath. COMPARISON: 06/24/2024. FINDINGS: No interval change in bilateral upper lung zone heterogeneous pulmonary opacities suspicious for pneumonia. ??Stable bandlike opacity at the left base suggesting scarring. ??No pneumothorax. ??Stable blunting of the costophrenic angles. ??Heart is mildly enlarged. ??Atherosclerotic calcifications of the aorta. Bones are diffusely demineralized. ??Mild S-shaped scoliosis. ??Severe degenerative changes of the glenohumeral joints with remodeling of the humeral heads, particularly on the right. IMPRESSION: No significant interval change. Dictating Physician: ??KIRILL ARGUELLES MD Electronically Signed by: ??KIRILL ARGUELLES MD Dic Date/Time: ??06/29/24915 Sign date/Time: ??06/29/24923 Procedure Note Kirill Arguelles MD - 07/07/2024 [facility] Diagnostic Imaging Department [address] [place] [id number] Patient: LOUANN BARRIENTOS Julito /Age/Sex: 1950 - 74 - F Unit#: [id number] Location/Status: SP5MS/ADM IN Mnemonic/Ordering Site:[facility] Ordering Physician: SULY ROBERSON MD DR Chest PORTABLE - 06/29/24 - 911 Report Status:Signed AP view of the chest, 06/29/2024. HISTORY: Shortness of Breath. COMPARISON: 06/24/2024. FINDINGS: No interval change in bilateral upper lung zone heterogeneous pulmonary opacities suspicious for pneumonia. Stable bandlike opacity at the leftbase suggesting scarring. No pneumothorax. Stable blunting of thecostophrenic angles. Heart is mildly enlarged. Atherosclerotic calcifications of theaorta. Bones are diffusely demineralized. Mild S-shaped scoliosis. Severe degenerative changes of the glenohumeral joints with remodeling of thehumeral heads, particularly on the right. IMPRESSION: No significant interval change. 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 Do not modify or discontinue any currently active code status orders. * No CPR/Do Not Intubate Date Activated Date Inactivated Comments 09/23/2024 10:26 AM 09/23/2024 10:26 AM This code status was ascertained in the following way: Discussed with Health proxy To update the patient's code status, place a code status order. Do not modify or discontinue any currently active code status orders. * Full Code - Default Date Activated Date Inactivated Comments 09/17/2024 6:18 PM 09/23/2024 10:26 AM This is ord er is used when code status has not been discussed with the patient, or code status is otherwise unknown/unconfirmed To update the patient's code status, place a code status order. Do not modify or discontinue any currently active code status orders. * Full Code - Default Date Activated Date Inactivated Comments 08/09/2024 7:32 AM 08/14/2024 4:16 PM This is ord er is used when code status has not been discussed with the patient, or code status is otherwise unknown/unconfirmed To update the patient's code status, place a code status order. Do not modify or discontinue any currently active code status orders. Healthcare Agents on File Name Relationship Healthcare Agent [facility] Communication John Barrientos On License Of [facility] Health Care Agent Care Teams Case Manager Relationship Specialty Start Date End Date Dale Pinto MD [address] [place] [address] PCP - General Internal Medicine 11/10/21
--- OUTSIDE RECORDS SUMMARY | 2024-09-28 14:16 | XMS_ITS | Encounter Summary ---
Author Organization [facility] Address [address] [place] [address] Care Team Providers Care Python Architect Name Role Phone Dale Pinto MD Primary Care Provider [phone] Encounter Details Date Type Department Care Team (Late st Contact Info) Description 07/20/2024 Lab Requisition [facility] - Main Lab [address] [facility] [place] [address] Rey Escalante MD [address] [place] [id number] Acute respiratory failure with hypoxia (CMS/HCC) Social [...] Procedure Name Priority Date/Time Associated Diagnosis Comments PROCALCITONIN Routine 07/20/2024 5:49 AM EST Acute [...] encounter Results * (ABNORMAL) CBC auto differential (07/20/2024 5:49 AM EST) WBC 15.7(H) 4.8 - 10.8 K/mcL LAB HEMETOLOGY METHOD 07/20/2024 12:[address] [facility] RBC 4.20 3.80 - 4.80 M/mcL LAB HEMETOLOGY METHOD 07/20/2024 12:[address] [facility] Hemoglobin 9.5(L) 11.5 - 16.0 g/dL LAB HEMETOLOGY METHOD 07/20/2024 12:[address] [facility] Hematocrit 30.3(L) 35.0 - 47.0 % LAB HEMETOLOGY METHOD 07/20/2024 12:[address] [facility] MCV 72.7(L) 79.0 - 98.0 FL LAB HEMETOLOGY METHOD 07/20/2024 12:[address] [facility] MCH 22.8(L) 27.0 - 32.0 pcg LAB HEMETOLOGY METHOD 07/20/2024 12:[address] [facility] MCHC 31.4(L) 32.0 - 37.0 g/dL LAB HEMETOLOGY METHOD 07/20/2024 12:[address] [facility] RDW 19.7(H) 11.0 - 15.0 % LAB HEMETOLOGY METHOD 07/20/2024 12:[address] [facility] Platelets 632(H) 130 - 400 K/mcL LAB HEMETOLOGY METHOD 07/20/2024 12:[address] [facility] MPV 9.6 7.0 - 11.0 FL LAB HEMETOLOGY METHOD 07/20/2024 12:[address] [facility] NRBC 0.0 <1.0 % LAB HEMETOLOGY METHOD 07/20/2024 12:[address] [facility] NRBC Absolute 0.00 <0.10 K/mcL LAB HEMETOLOGY METHOD 07/20/2024 12:[address] [facility] Neutrophils Relative 84.5 % LAB HEMETOLOGY METHOD 07/20/2024 12:[address] [facility] Lymphocytes Relative 7.6 % LAB HEMETOLOGY METHOD 07/20/2024 12:[address] [facility] Monocytes Relative 2.7 % LAB HEMETOLOGY METHOD 07/20/2024 12:[address] [facility] Eosinophils Relative 4.6 % LAB HEMETOLOGY METHOD 07/20/2024 12:[address] [facility] Basophils Relative 0.1 % LAB HEMETOLOGY METHOD 07/20/2024 12:[address] [facility] Immature Granulocytes Relative 0.5 % LAB HEMETOLOGY METHOD 07/20/2024 12:[address] [facility] Neutrophils Absolute 13.28(H) 1.50 - 7.00 K/mcL LAB HEMETOLOGY METHOD 07/20/2024 12:[address] [facility] Lymphocytes Absolute 1.19 1.00 - 5.00 K/mcL LAB HEMETOLOGY METHOD 07/20/2024 12:[address] [facility] Monocytes Absolute 0.42 0.20 - 1.00 K/mcL LAB HEMETOLOGY METHOD 07/20/2024 12:[address] [facility] Eosinophils Absolute 0.73(H) 0.00 - 0.50 K/mcL LAB HEMETOLOGY METHOD 07/20/2024 12:18 PM EST [facility] Basophils Absolute 0.02 0.00 - 0.20 K/mcL LAB HEMETOLOGY METHOD 07/20/2024 12:18 PM EST [facility] Immature Granulocytes Absolute 0.08(H) 0.00 - 0.03 K/mcL LAB HEMETOLOGY METHOD 07/20/2024 12:18 PM EST [facility] Blood Venous blood specimen / Unknown Venipuncture / Unknown 07/20/2024 5:49 AM EST 07/20/2024 10:03 AM EST Rey Escalante MD LAB BLOOD ORDERABLES Performing Organization Address City/State/[facility] Co de Phone Number [facility] [address] [place] [address], * Procalcitonin (07/20/2024 5:49 AM EST) Procalcitonin 0.14 <=0.16 ng/mL LAB CHEMISTRY METHOD 07/20/2024 12:40 PM EST [facility] Blood Venous blood specimen / Unknown Venipuncture / Unknown 07/20/2024 5:49 AM EST 07/20/2024 10:03 AM EST Narrative [facility] - 07/20/2024 12:40 PM EST Procalcitonin > 2.00 ng/ml: Procalcitonin Levels [...] if any concentrations <2.0 ng/mL are obtained. Rey Escalante MD LAB BLOOD ORDERABLES [facility] [address] [place] [address], [place] [phone] * (ABNORMAL) Comprehensive metabolic panel (07/20/2024 5:49 AM EST) Sodium 133 133 - 145 mmol/L LAB CHEMISTRY METHOD 07/20/2024 12:[address] [facility] Potassium 4.3 3.5 - 5.5 mmol/L LAB CHEMISTRY METHOD 07/20/2024 12:[address] [facility] Chloride 100 96 - 110 mmol/L LAB CHEMISTRY METHOD 07/20/2024 12:[address] [facility] CO2 26 21 - 32 mmol/L LAB CHEMISTRY METHOD 07/20/2024 12:[address] [facility] Anion Gap 7 3 - 11 LAB CHEMISTRY METHOD 07/20/2024 12:[address] [facility] Glucose 56(L) 70 - 100 mg/dL LAB CHEMISTRY METHOD 07/20/2024 12:[address] [facility] BUN 9 5 - 25 mg/dL LAB CHEMISTRY METHOD 07/20/2024 12:[address] [facility] Creatinine 0.22(L) 0.50 - 1.10 mg/dL LAB CHEMISTRY METHOD 07/20/2024 12:[address] [facility] eGFR 119 >=60 mL/min/1. 73m2 LAB CHEMISTRY METHOD 07/20/2024 12:[address] [facility] Comment:Calculation based on the??Chronic Kidney Disease Epidemiology Collaboration (CKD-EPI) equation refit??without adjustment for race. BUN/Creatinine Ratio 40.9 LAB CHEMISTRY METHOD 07/20/2024 12:[address] [facility] Calcium 8.6 8.5 - 10.5 mg/dL LAB CHEMISTRY METHOD 07/20/2024 12:[address] [facility] AST (SGOT) 9(L) 10 - 42 unit/L LAB CHEMISTRY METHOD 07/20/2024 12:[address] [facility] ALT (SGPT) 10 10 - 60 unit/L LAB CHEMISTRY METHOD 07/20/2024 12:[address] [facility] Alkaline Phosphatase 105 42 - 121 unit/L LAB CHEMISTRY METHOD 07/20/2024 12:[address] [facility] Total Protein 5.8(L) 6.0 - 8.0 g/dL LAB CHEMISTRY METHOD 07/20/2024 12:[address] [facility] Albumin 2.1(L) 3.2 - 5.0 g/dL LAB CHEMISTRY METHOD 07/20/2024 12:[address] [facility] Total Bilirubin 0.5 0.0 - 1.4 mg/dL LAB CHEMISTRY METHOD 07/20/2024 12:[address] [facility] Blood Venous blood specimen / Unknown Venipuncture / Unknown 07/20/2024 5:49 AM EST 07/20/2024 10:03 AM EST Rey Escalante MD LAB BLOOD ORDERABLES [facility] [address] [place] [address], documented in this encounter Visit Diagnoses Diagnosis [...] documented as of this encounter Care Teams Python Architect Relationship Specialty Start Date End Date Dale Pinto MD [address] [place] [address] PCP - General Internal Medicine 11/10/21 documented as of this encounter
--- OUTSIDE RECORDS SUMMARY | 2024-09-28 14:16 | XMS_ITS | Encounter Summary ---
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; Anemia, unspecified; Acute respiratory failure with hypoxia (CMS/HCC) Social [...] Diagnosis Comments CBC WITH AUTO DIFFERENTIAL Routine 07/11/2024 7:03 AM EST Anemia, unspecified Acute respiratory failure with hypoxia (CMS/HCC) Other custodial (current) drug therapy IRON AND TIBC Routine 07/11/2024 7:03 AM EST Anemia, unspecified Acute respiratory failure with hypoxia (CMS/HCC) Other custodial (current) drug therapy CBC AND DIFFERENTIAL Routine 07/11/2024 7:03 AM EST Anemia, unspecified Acute respiratory failure with hypoxia (CMS/HCC) 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0 - 47.0 % LAB HEMETOLOGY METHOD 07/11/2024 1:49 PM [facility] MCV 70.7(L) 79.0 - 98.0 FL LAB HEMETOLOGY METHOD 07/11/2024 1:49 PM [facility] MCH 21.3(L) 27.0 - 32.0 pcg LAB HEMETOLOGY METHOD 07/11/2024 1:49 PM [facility] MCHC 30.2(L) 32.0 - 37.0 g/dL LAB HEMETOLOGY METHOD 07/11/2024 1:49 PM [facility] RDW 18.4(H) 11.0 - 15.0 % LAB HEMETOLOGY METHOD 07/11/2024 1:49 PM [facility] Platelets 873(H) 130 - 400 K/mcL LAB HEMETOLOGY METHOD 07/11/2024 1:49 PM [facility] MPV 9.6 7.0 - 11.0 FL LAB HEMETOLOGY METHOD 07/11/2024 1:49 PM [facility] NRBC 0.0 <1.0 % LAB HEMETOLOGY METHOD 07/11/2024 1:49 PM [facility] NRBC Absolute 0.00 <0.10 K/mcL LAB HEMETOLOGY METHOD 07/11/2024 1:49 PM [facility] Neutrophils Relative 83.9 % LAB HEMETOLOGY METHOD 07/11/2024 1:49 PM [facility] Lymphocytes Relative 8.1 % LAB HEMETOLOGY METHOD 07/11/2024 1:49 PM [facility] Monocytes Relative 3.1 % LAB HEMETOLOGY METHOD 07/11/2024 1:49 PM [facility] Eosinophils Relative 4.0 % LAB HEMETOLOGY METHOD 07/11/2024 1:49 PM [facility] Basophils Relative 0.3 % LAB HEMETOLOGY METHOD 07/11/2024 1:49 PM [facility] Immature Granulocytes Relative 0.6 % LAB HEMETOLOGY METHOD 07/11/2024 1:49 PM EST [facility] Neutrophils Absolute 11.99(H) 1.50 - 7.00 K/mcL LAB HEMETOLOGY METHOD 07/11/2024 1:49 PM EST [facility] Lymphocytes Absolute 1.16 1.00 - 5.00 K/mcL LAB HEMETOLOGY METHOD 07/11/2024 1:49 PM EST [facility] Monocytes Absolute 0.44 0.20 - 1.00 K/mcL LAB HEMETOLOGY METHOD 07/11/2024 1:49 PM EST [facility] Eosinophils Absolute 0.57(H) 0.00 - 0.50 K/[facility] LAB HEMETOLOGY METHOD 07/11/2024 1:49 PM EST [facility] Basophils Absolute 0.04 0.00 - 0.20 K/mcL LAB HEMETOLOGY METHOD 07/11/2024 1:49 PM EST [facility] Immature Granulocytes Absolute 0.08(H) 0.00 - 0.03 K/[facility] LAB HEMETOLOGY METHOD 07/11/2024 1:49 PM EST [facility] Blood Venous blood specimen / Unknown Venipuncture / Unknown 07/11/2024 7:03 AM EST 07/11/2024 8:31 AM EST Rey Escalante MD LAB BLOOD ORDERABLES [facility] [address] [place] [address], * Folate (07/11/2024 7:03 AM EST) Folate 3.8 2.8 - 17.0 ng/ml LAB CHEMISTRY METHOD 07/11/2024 11:13 AM EST [facility] Blood Venous blood specimen / Unknown Venipuncture / Unknown 07/11/2024 7:03 AM EST 07/11/2024 8:31 AM EST Rey Escalante MD LAB BLOOD ORDERABLES Performing Organization Address [facility]/ZIP Co de Phone Number [facility] [address] [place] [address], [place] [phone] * Vitamin B12 (07/11/2024 7:03 AM EST) Vitamin B-12 571 250 - 900 pcg/mL LAB CHEMISTRY METHOD 07/11/2024 11:13 AM [facility] Blood Venous blood specimen / Unknown Venipuncture / Unknown 07/11/2024 7:03 AM EST 07/11/2024 8:31 AM EST Rey Escalante MD LAB BLOOD ORDERABLES Performing Organization Address [facility] de Phone Number [facility] [address] [place] [address], [place] [phone] * (ABNORMAL) Iron and TIBC (07/11/2024 7:03 AM EST) Iron 12(L) 40 - 150 mcg/dL LAB CHEMISTRY METHOD 07/11/2024 11:13 AM [facility] TIBC 269 250 - 450 mcg/dL LAB CHEMISTRY METHOD 07/11/2024 11:13 AM [facility] Iron Saturation 4(L) 15 - 50 % LAB CHEMISTRY METHOD 07/11/2024 11:13 AM [facility] Blood Venous blood specimen / Unknown Venipuncture / Unknown 07/11/2024 7:03 AM EST 07/11/2024 8:31 AM EST Rey Escalante MD LAB BLOOD ORDERABLES Performing Organization Address [facility]/ZIP Co de Phone Number [facility] [address] [place] [address], [place] [phone] * Ferritin (07/11/2024 7:03 AM EST) Ferritin 34 8 - 252 ng/mL LAB CHEMISTRY METHOD 07/11/2024 11:13 AM EST [facility] Blood Venous blood specimen / Unknown Venipuncture / Unknown 07/11/2024 7:03 AM EST 07/11/2024 8:31 AM EST Rey Escalante MD LAB BLOOD ORDERABLES [facility] [address] [place] [address], documented in this encounter Visit Diagnoses Diagnosis 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
--- OUTSIDE RECORDS SUMMARY | 2024-09-28 14:17 | XMS_ITS ---
Author Organization [facility] Address Unknown Allergies, Adverse Reactions, Alerts Substance Reaction Status Noted Date Resolved Date Sulfa Antibiotics active 11/22/2022 Penicillins active 11/22/2022 Fosamax active 11/22/2022 Actonel active 11/22/2022 Medications Medication Dose Frequency Directions Start Date End Itz e Ascorbic Acid Tablet 500 MG 1 {tbl} 24 h Give 1 tablet by walter th one time a day for supplement 08/15/2024 09/27/2024 Aspirin Oral Tablet Chewable 81 MG 1 {tbl} 24 h Give 1 tablet by walter th one time a day for prevention 08/15/2024 09/27/2024 Artificial Tears Ophthalmic Solution 1-0.3 % 1 [drp] Instill 1 drop in aishwarya th eyes every 8 hours as needed for dry eyes 08/14/2024 09/27/2024 Dapagliflozin Propanediol Oral Tablet 10 MG 1 {tbl} 24 h Give 1 tablet by walter th one time a day for hf 08/15/2024 09/27/2024 Atorvastatin Calcium Tablet 80 MG 1 {tbl} Give 1 tablet by walter th at bedtime for hld 08/15/2024 09/27/2024 Carvedilol Tablet 3.125 MG 1 {tbl} 12 h Give 1 tablet by walter th every 12 hours for htn every 12 hours*Hold if Systolic Blood Pressure is less than 100 08/15/2024 09/27/2024 Zinc Oxide External Paste Apply to COCCYX topically every shift for wound care 08/15/2024 09/06/2024 Zinc Oxide External Paste Apply to BILATERAL BUTTOCKS topically every shift for WOUND CARE 08/15/2024 09/06/2024 Tylenol Oral Tablet 325 MG 3 {tbl} 12 h Give 3 tablet by walter th two times a day for pain total dose= 975 mg. Do not exceed 3 grams in 24 hours 08/15/2024 09/27/2024 Ensure Oral Liquid 237 mL 8 h Give 237 ml by mouth three times a day for dietary supplement 08/15/2024 09/27/2024 Probiotic Oral Capsule 1 {Capsule} 24 h Give 1 capsule by mouth one time a day for supplement 08/16/2024 09/27/2024 Lidocaine Patch 4 % Apply to area of discomfort topically in the morning for pain for 12 hours then remove and remove per schedule 08/18/2024 09/27/2024 Dulcolax Suppository 10 MG 1 Insert 1 suppository rectally as needed for Constipation every 3 days if No Bowel Movement and Milk of Magnesia ineffective 08/17/2024 09/27/2024 Milk of Magnesia Suspension 400 MG/5ML 30 mL Give 30 ml by mouth as needed for Constipation daily 08/17/2024 09/27/2024 Fleet Enema 1 Insert 1 unit r ectally as needed for Constipation. Give if no results from laxative suppository. 08/17/2024 09/27/2024 Ferrous Sulfate Tablet 325 (65 Fe) MG 1 {tbl} 12 h Give 1 tablet by walter th two times a day for supplementation 08/22/2024 09/27/2024 Advil Liqui-Gels minis Oral Capsule 200 MG 1 {Capsule} Give 1 capsule by mouth every 12 hours as needed for mild to moderate pain (1-4) 08/23/2024 09/27/2024 Saline Nasal Stewart Solution 1 1 spray in each nostril every 2 hours as needed for Congestion 08/31/2024 09/27/2024 Liquid Acetaminophen Oral Liquid 650 mg Give 650 mg by mouth every 6 hours as needed for fever request liquid tylenol 09/15/2024 09/15/2024 Acetaminophen Liquid 160 MG/5ML 20 mL Give 20 ml by mouth every 6 hours as needed for Temp greater than 100F Total Dose equals 640mg* DO NOT EXCEED 3 GRAMS per 24 HOURS 09/15/2024 09/27/2024 Medications Administered Medication Dose Frequency Status Start Date End Date Ascorbic Acid Tablet 500 MG 1 {tbl} 24 h Hospitalized 09/26/2024 Aspirin Oral Tablet Chewable 81 MG 1 {tbl} 24 h Hospitalized 09/26/2024 Artificial Tears Ophthalmic Solution 1-0.3 % 1 [drp] 08/14/2024 Dapagliflozin Propanediol Or al Tablet 10 MG 1 {tbl} 24 h Hospitalized 09/26/2024 Atorvastatin Calcium Tablet 80 MG 1 {tbl} Hospitalized 09/25/2024 Carvedilol Tablet 3.125 MG 1 {tbl} 12 h Hospitalized 09/26/2024 Zinc Oxide External Paste 10/2024 Zinc Oxide External Paste 10/2024 Tylenol Oral Tablet 325 MG 3 {tbl} 12 h Hospitalized 09/26/2024 Ensure Oral Liquid 237 mL 8 h Hospitalized 09/26/19 25 Probiotic Oral Capsule 1 {Capsule} 24 h Hospitalized Lidocaine Patch 4 % Hospitalized 025 Dulcolax Suppository 10 MG 1 Milk of Magnesia Suspension 400 MG/5ML 30 mL 08/17/2024 Fleet Enema 1 08/17/2024 Ferrous Sulfate Tablet 325 ( 65 Fe) MG 1 {tbl} 12 h Hospitalized 09/26/2024 Advil Liqui-Gels minis Oral Capsule 200 MG 1 {Capsule} 09/15/2024 Saline Nasal Stewart Solution 1 Liquid Acetaminophen Oral Liquid 650 mg 09/15/2024 Acetaminophen Liquid 160 MG/5ML 20 mL 09/15/2024 Problems Problem Status Start Date End Date MUSCLE WASTING AND ATROPHY, NOT ELSEWHERE CLASSIFIED, MULTIPLE SITES (Primary) (M62.59 - ICD-10-CM) ACTIVE 08/15/2024 ENCOUNTER FOR OTHER ORTHOPED IC AFTERCARE (Primary) (Z47.89 - ICD-10-CM) RESOLVED 11/22/2022 08/14/2024 ACUTE ON CHRONIC SYSTOLIC (C ONGESTIVE) HEART FAILURE (I50.23 - ICD-10-CM) ACTIVE 08/14/2024 INFECTION AND INFLAMMATORY R EACTION DUE TO INTERNAL LEFT HIP PROSTHESIS, SUBSEQUENT ENCOUNTER (T84.52XD - ICD-10-CM) RESOLVED 11/22/2022 08/14/2024 ACUTE RESPIRATORY FAILURE WI TH HYPOXIA (J96.01 - ICD-10-CM) ACTIVE 08/14/2024 MUSCLE WASTING AND ATROPHY, NOT ELSEWHERE CLASSIFIED, MULTIPLE SITES (M62.59 - ICD-10-CM) RESOLVED 11/22/202208/05 NON-ST ELEVATION (NSTEMI) MY OCARDIAL INFARCTION (I21.4 - ICD-10-CM) ACTIVE 08/14/2024 UNSPECIFIED ABNORMALITIES OF GAIT AND MOBILITY (R26.9 - ICD-10-CM) RESOLVED 11/22/2022 08/14/2024 RHEUMATOID ARTHRITIS, UNSPECIFIED (M06.9 - ICD-10-CM) ACTIVE 11/22/2022 UNSPECIFIED PROTEIN-CALORIE MALNUTRITION (E46 - ICD-10-CM) RESOLVED 11/22/2022 08/14/2024 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 11/22/2022 ANXIETY DISORDER, UNSPECIFIED (F41.9 - ICD-10-CM) ACTI VE 08/14/2024 UNSPECIFIED PROTEIN-CALORIE MALNUTRITION (E46 - ICD-10-CM) ACTIVE 08/14/2024 ENCOUNTER FOR OBSERVATION FO R SUSPECTED EXPOSURE TO OTHER BIOLOGICAL AGENTS RULED OUT (Z03.818 - ICD-10-CM) RESOLVED 11/22/2022 08/14/2024 ANEMIA, UNSPECIFIED (D64.9 - ICD-10-CM) ACTIVE 1 10/15/2023 PNEUMONIA, UNSPECIFIED ORGANISM (J18.9 - ICD-10-CM) AC TIVE 08/14/2024 SJOGREN SYNDROME, UNSPECIFIED (M35.00 - ICD-10-CM) ACT HEMANT 08/14/2024 KERATOCONJUNCTIVITIS SICCA, NOT SPECIFIED SJOGREN'S, BILATERAL (H16.223 - ICD-10-CM) RESOLVED 11/22/2022 08/14/2024 Results * XRAY CHEST 4 OR MORE VIEWS Performed by: [employer] Component Value Range Date XRAY CHEST 4 OR MORE VIEWS XRAY CHEST 4 OR MORE VIEWS Comparison: 12/03/2022See NoteFINDINGS: AP, lateral and oblique films were performed. Small bilateral pleural effusions are present not seen on 12/03/2022. There is mild subsegmental atelectasis in the right upper lobe but no active pulmonary infiltrates are seen. The heart is mildly enlarged. Hilar areas are normal in size. Pulmonary vasculature is within normal limits. A rib fracture is not visible.See NoteCONCLUSION: There is subsegmental atelectasis in the right upper lobe. Otherwise no active lung disease is seen. There is mild cardiomegaly with small bilateral pleural effusions which could be due to mild cardiac decompensation.ELECTRONICALLY SIGNED BY CLAUDIA MONTENEGRO M.D. 09/10/2024 5:50:58 PM EST.Reason for Study: R05.1 ACUTE COUGHPrincipal Result Hide Inspector: CLAUDIA MONTENEGRO ([phone])Administrative Office Specialist: BRIAN FELDER (MCRUZ)[employer] Administrative Office Specialist: ARNAUD 09/10/2024 05:51 pm EST * RIBS UNI-LAT 2V Performed by: MD [employer] Component Value Range Date RIBS UNI-LAT 2V RIBS UNI-LAT 2V, RIG HT Comparison: There is comparison 12/03/2022, significant worsening.See NoteFINDINGS: Right ribs There are severe erosive arthritic changes at the right shoulder joint including bone loss at the humeral head and acetabulum. The changes are suspicious for septic joint. The right ribs demonstrate no evidence of fracture. Regional bone density loss from osteoporosis limits of the study. There is chronic bone loss at the distal right clavicle. .CONCLUSION: Severe erosive changes at the right shoulder joint are suspicious for septic arthritis.ELECTRONICALLY SIGNED BY MELQUIADES XIE M.D. 09/10/2024 5:50:26 PM EST.Reason for Study: R07.82 INTERCOSTAL PAINPrincipal Result Hide Inspector: MELQUIADES XIE ([id number])Administrative Office Specialist: BRIAN FELDER (MCRUZ)[employer] Administrative Office Specialist: ARNAUD 09/10/2024 05:50 p m EST * XRAY CHEST 1 VIEW Performed by: MD [employer]ider Component Value Range Date XRAY CHEST 1 VIEW XRAY CHEST 1 VIEWFIN DINGS: The lungs are fully expanded and clear. The heart and mediastinal structures show nothing unusual. Significant bony abnormalities are not seen. There is no evidence of active tuberculosis.CONCLUSION: Negative chest, no evidence of active tuberculosis.ELECTRONICALLY SIGNED BY XUAN XIE M.D. 12/03/2022 10:04:29 AM EDT.Reason for Study: J98.4 OTHER DISORDERS OF LUNGPrincipal Result Hide Inspector: XUAN XIE ([id number])Administrative Office Specialist: PEPITO MARTINEZ (DCONDON)[employer] Administrative Office Specialist: ARNAUD 12/03/2022 10:04 am EDT Encounters Encounter Performer Performer Role Encounter Diagnoses Location Date Discharge - Discharged to home or self care - Home - Private home/apt. with no home health services [facility] 3 04:15 pm EDT - 3 10:04 am EDT Discharge - Discharged / Transferred to another [facility] - [facility] 4 02:09 pm EST - 5 03:20 pm EST Reason For Referral Abnormal white blood cell count (high) Immunizations Vaccine Date TB 2 Step Mantoux Skin Test 11/23/2022 1 2:00 am EDT SARS-COV-2 (COVID-19) 12/15/2020 12:00 a m EDT SARS-COV-2 (COVID-19) 11/24/2020 12:00 a m EDT Pfizer Covid-19 Booster (SARS-COV-2) vac cine 07/02/2021 12:00 am EDT Pfizer-[employer] Covid-19 Bi-valent Solut ion 07/01/2022 12:00 am EDT (COVID-19) 3541-6554 Updated Moderna Vac cine (Pneumococcal) PCV20- Conjugate 20-santos t Vaccine (Influenza) FLUAD - Adjuvanted - High Do se - 65+ Social History Vital Signs Vital Sign Reading Time Taken painLevel 5 {score} 09/17/2024 02:48 pm EST painLevel 0 {score} 09/17/2024 12:37 am EST painLevel 0 {score} 09/16/2024 03:50 pm EST painLevel 0 {score} 09/16/2024 12:39 pm EST painLevel 0 {score} 09/16/2024 12:26 pm EST painLevel 0 {score} 09/15/2024 04:26 pm EST painLevel 0 {score} 09/15/2024 12:17 pm EST painLevel 5 {score} 09/15/2024 09:09 am EST painLevel 5 {score} 09/15/2024 09:07 am EST painLevel 0 {score} 09/14/2024 10:22 pm EST painLevel 0 {score} 09/14/2024 07:01 pm EST painLevel 0 {score} 09/14/2024 05:45 pm EST painLevel 0 {score} 09/14/2024 04:11 pm EST temperature 98.4 [degF] 09/17/2024 02:13 pm EST temperature 98.2 [degF] 09/16/2024 04:58 pm EST temperature 98.9 [degF] 09/16/2024 12:26 pm EST temperature 98.9 [degF] 09/15/2024 04:26 pm EST temperature 97.6 [degF] 09/15/2024 09:09 am EST temperature 97.9 [degF] 09/14/2024 07:01 pm EST temperature 98 [degF] 09/14/2024 04:11 pm EST respirations 18 /min 09/17/2024 02:13 pm EST respirations 16 /min 09/16/2024 04:58 pm EST respirations 18 /min 09/16/2024 12:26 pm EST respirations 18 /min 09/15/2024 04:26 pm EST respirations 18 /min 09/15/2024 09:09 am EST respirations 18 /min 09/14/2024 07:01 pm EST respirations 16 /min 09/14/2024 04:11 pm EST heartrate 77 /min 09/17/2024 02:12 pm EST heartrate 85 /min 09/16/2024 04:58 pm EST heartrate 90 /min 09/16/2024 12:26 pm EST heartrate 91 /min 09/15/2024 04:26 pm EST heartrate 76 /min 09/15/2024 09:09 am EST heartrate 78 /min 09/14/2024 07:01 pm EST heartrate 77 /min 09/14/2024 04:11 pm EST systolicValue 127 mm[Hg] 09/17/2024 02:12 pm EST diastolicValue 68 mm[Hg] 09/17/2024 02:12 pm EST systolicValue 122 mm[Hg] 09/16/2024 08:32 pm EST diastolicValue 64 mm[Hg] 09/16/2024 08:32 pm EST systolicValue 122 mm[Hg] 09/16/2024 04:58 pm EST diastolicValue 64 mm[Hg] 09/16/2024 04:58 pm EST systolicValue 122 mm[Hg] 09/16/2024 12:26 pm EST diastolicValue 66 mm[Hg] 09/16/2024 12:26 pm EST systolicValue 114 mm[Hg] 09/15/2024 08:44 pm EST diastolicValue 67 mm[Hg] 09/15/2024 08:44 pm EST systolicValue 114 mm[Hg] 09/15/2024 04:26 pm EST diastolicValue 67 mm[Hg] 09/15/2024 04:26 pm EST systolicValue 120 mm[Hg] 09/15/2024 09:09 am EST diastolicValue 64 mm[Hg] 09/15/2024 09:09 am EST systolicValue 128 mm[Hg] 09/14/2024 08:35 pm EST diastolicValue 73 mm[Hg] 09/14/2024 08:35 pm EST systolicValue 128 mm[Hg] 09/14/2024 07:01 pm EST diastolicValue 73 mm[Hg] 09/14/2024 07:01 pm EST systolicValue 128 mm[Hg] 09/14/2024 04:11 pm EST diastolicValue 69 mm[Hg] 09/14/2024 04:11 pm EST oxygenSaturation 96 % 09/16/2024 04:5 8 pm EST oxygenSaturation 94 % 09/16/2024 12:2 6 pm EST oxygenSaturation 95 % 09/15/2024 04:2 6 pm EST oxygenSaturation 99 % 09/15/2024 09:0 9 am EST oxygenSaturation 98 % 09/14/2024 07:0 1 pm EST oxygenSaturation 98 % 09/14/2024 04:1 1 pm EST
--- OUTSIDE RECORDS SUMMARY | 2024-09-28 14:17 | XMS_ITS | Encounter Summary ---
Author Organization [employer] Address [address] [place] [address] Care Team Providers Care Energy Rater Name Role Phone Dale Pinto MD Primary Care Provider [phone] Reason for Visit * Reason Comments Blood Infection * Auth/Cert (Routine) Specialty Diagnoses / Procedures Referred By Contac t Referred To Contact Diagnoses Septic arthritis (CMS/HCC) 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) Procedures [facility] IP/OBS CARE INITIAL MODERATE LEVEL PER DAY Dennis Hagan MD [address] [place] [address] [address] Referral ID Status Reason Start Date Expiration Date Visits Re quested Visits Authorized [id number] 1 1 Encounter Details Date Type Department Care Team (Late st Contact Info) Description 09/19/2024 9:30 AM EST - 09/19/2024 11:00 AM EST Surgery [address] [address] Henri Mcdowell MD [address] [place] [id number] ARTHROSCOPY SHOULDER WASHOUT Surgery Details Date/Time Status Location OR Service Patient Class Case Class Case Type Trauma Case? 09/19/2024 9:30 AM Posted [facility] OR OR 03 Orthopedics Inpatient Panel 1 Procedure [facility] Anes Op Region Wound Class Comments ARTHROSCOPY SHOULDER WASHOUT Right Shoulder C lass I/ Clean Surgeon Surgeon Role Service Panel Henri Mcdowell MD Primary Orthopedics 1 Case Notes Right shoulder arthroscopy, 2nd case of the day documented in this encounter Social History Tobacco Use Types Packs/Day Years [...] on file documented as of this encounter Last Filed Vital Signs Vital Sign Reading Time Taken Comments Blood Pressure 119/75 09/19/2024 9:25 AM EST Pulse 91 09/19/2024 7:46 AM EST Temperature 36.1 ??C (97 ??F) 09/19/2024 9:25 AM EST Respiratory Rate 20 09/19/2024 9:25 AM EST Oxygen Saturation 95% 09/19/2024 7:46 AM EST Inhaled Oxygen Concentration - - Weight 46.2 kg (101 lb 13.6 oz) 09/18/2024 1:58 PM EST Height 154.9 cm (5' 0.98 ) 09/18/2024 1:58 PM ES T Body Mass Index 18.98 09/18/2024 1:58 PM EST documented in this encounter Functional Status Functional Status Response Date of Assess ment Are you deaf or do you have serious difficulty h earing? No 08/08/2024 Are you blind or do you have serious difficulty seeing, even when wearing glasses? No 08/08/2024 Do you have serious difficul ty walking or climbing stairs? No 08/08/2024 Do you have serious difficulty dressing or bathi ng? No 08/08/2024 Because of a physical, menta l, or emotional condition, do you have serious difficulty doing errands alone such as visiting the doctor? No 08/08/2024 Cognitive Status Response Date of Assessm ent Because of a physical, menta l, or emotional condition, do you have serious difficulty concentrating, remembering, or making decisions? (5 years old or older) No 08/08/2024 documented as of this encounter Discharge Summaries * Nancy Kc MD - 09/27/2024 7:46 AM EST Images from the original note were not included. LOUIE DISCHARGE SUMMARY Patient Information Louann Barrientos : 1950 [74 y.o.] Admitting Provider Dennis Hagan MD Discharge Provider Nancy Kc MD, Nancy Kc MD Primary Care Physician Dale Pinto MD Admission Date 09/17/2024 Discharge Date 09/27/2024 Primary/Secondary Diagnosis Right shoulder septic arthritis with sepsis and MSSA bacteremia Acute metabolic encephalopathy HFrEF Severe rheumatoid arthritis Sjogren syndrome Chronic anemia likely anemia of chronic disease Anxiety Probable severe malnutrition Consults: ID Orthopedic surgery Procedures: Arthroscopic debridement right shoulder Hospital Course Summary Hospital course: Louann Barrientos is a 74 y.o. female with PMH of advanced RA and Sjogren syndrome, Raynaud's disease, HFrEF, chronic anemia, anxiety, admitted due to right shoulder pain and swelling, leukocytosis and and CT showing right shoulder with large multiloculated glenohumeral joint effusion with signs of possible osteomyelitis. She was diagnosed and treated for right shoulder septic arthritis and MSSA bacteremia, she underwent right shoulder arthroscopic debridement and was treated with IV cefazolin. Blood cultures cleared. TTE did not reveal vegetation. Stay was complicated with her refusal with care, not eating drinking and not taking her medications. Further discussion was held with her and family and she was transitioned to comfort measures - she was initiated on as needed morphine and Ativan. Further care to be provided at rehab facility under hospice team. HCP was invoked as it was felt that she lacked capacity. I took over her care on 09/24/2024. She continued to be lethargic at times and confused, she understood that all her active medications were stopped, she blamed surgery for her severe deconditioning, claimed that her arms stopped moving due to her surgery(arthroscopy) on the shoulder, she did not understand the concept of hospice but adamantly refused taking further antibiotics and other medications, claiming her nice doctor told her this is the best way and she agreed.She remained severely deconditioned and bed bound, unable to use her hands/feed herself due to severe chronic hand deformities, refusing most of her care. Speech recommended full liquid diet with supervision and pills to be cru shed in pur??e. HCP, son John worked with CM to arranged hospice services at a rehab facility. Once bed was secured, she as discharged. Diagnosis: # Right shoulder septic arthritis with sepsis and MSSA bacteremia # HFrEF # Rheumatoid arthritis # Sjogren syndrome # Chronic anemia likely anemia of chronic disease # Anxiety # Acute encephalopathy likely metabolic due to infection >30 min spent on DC Follow-Up Instructions and Recommendations PCP in 1 week Discharge Medications Your medication list START taking these medications Instructions Last Dose Given Next Dose Due LORazepam 0.5 mg tablet Commonly known as: ATIVAN Take 1 tablet (0.5 mg total) by mouth every 6 (six) hours if needed for anxiety for up to 3 days. Hospice patient Max Daily Amount: 2 mg morphine 100 mg/5 mL (20 mg/mL) concentrated solution Take 0.25 mL (5 mg total) by mouth every 4 (four) hours if needed for severe pain or moderate pain for up to 3 days. Max Daily Amount: 30 mg CHANGE how you take these medications Instructions Last Dose Given Next Dose Due acetaminophen 500 mg tablet Commonly known as: TYLENOL What changed: medication strength how much to take when to take this Take 2 tablets (1,000 mg total) by mouth every 8 (eight) hours for 10 days. CONTINUE taking these medications Instructions Last Dose Given Next Dose Due artificial tears(hypromellose) 0.3 % drops Administer 1 drop into affected eye(s) 3 times daily as needed. docusate sodium 100 mg capsule Commonly known as: COLACE Take 1 capsule (100 mg total) by mouth 2 (two) times a day. STOP taking these medications ascorbic acid (vitamin C) 500 mg capsule aspirin 81 mg EC tablet atorvastatin 80 mg tablet Commonly known as: LIPITOR carvediloL 3.125 mg tablet Commonly known as: COREG dapagliflozin propanediol 10 mg tablet Commonly known as: FARXIGA furosemide 20 mg tablet Commonly known as: LASIX LACTOBACILLUS ACIDOPHILUS ORAL spironolactone 25 mg tablet Commonly known as: ALDACTONE Where to Get Your Medications These medications were sent to [id number] - [place], [place] - [address] [facility] [address] acetaminophen 500 mg tablet You can get these medications from any pharmacy Bring a paper prescription for each of these medications LORazepam 0.5 mg tablet morphine 100 mg/5 mL (20 mg/mL) concentrated solution Physical Exam at time of Discharge Gen: awake and alert CVS: regular, tachycardic Pulm: diminished Abd: soft Extr: Unable to lift upper extremities or lower extremities, multiple joint deformities Vitals Vitals: 09/23/24 1111 BP: (!) 143/65 Pulse: (!) 121 Resp: 22 Temp: 37.7 ??C (99.8 ??F) SpO2: 95% HEMATOLOGY Lab Results Component Value Date WBC 15.9 (H) 09/23/2024 HGB 8.3 (L) 09/23/2024 HCT 28.0 (L) 09/23/2024 MCV 75.1 (L) 09/23/2024 PLT 652 (H) 09/23/2024 INR 1.0 08/09/2024 CHEMISTRY Lab Results Component Value Date GLUCOSE 126 (H) 09/23/2024 NA 143 09/23/2024 K 3.8 09/23/2024 CO2 25 09/23/2024 CL 109 09/23/2024 BUN 10 09/23/2024 CREATININE 0.36 (L) 09/23/2024 EGFR 105 09/23/2024 CALCIUM 8.5 09/23/2024 MG 1.8 (L) 09/19/2024 ANIONGAP 9 09/23/2024 Procedure Component Value Units Date/Time MR Thoracic Spine wo Contrast [[id number]] Collected: 09/21/24826 Order Status: Completed Updated: 09/21/24852 Narrative: PROCEDURE: Noncontrast MRI of the thoracic spine. HISTORY: Back trauma, no prior imaging (Age >= 16y) Bacteremia. COMPARISON: CT chest abdomen and pelvis 09/18/2024. TECHNIQUE: Multiplanar multisequence MRI of the thoracic spine without intravenous contrast administration. FINDINGS: Limited study secondary to patient motion. Mild cardiomegaly. Moderate right and small left pleural effusions. Mildly exaggerated thoracic kyphosis. Degenerative changes of the lumbar spine and a lumbar levoscoliosis with superior L3 and inferior L1 endplate fractures. There is also mild superior endplate deformity at T5. Total spine T2 fat- saturated images were performed and there is no marrow edema associated with any of these fractures, suggesting that they are chronic. There is trace fluid signal in the L2-3 intervertebral disc space suspected to be degenerative; no convincing evidence of discitis/osteomyelitis. No significant spinal stenosis. The neural foramina not well evaluated due to motion and scoliosis. Normal position of the conus at approximately L1. Assessment of the cord is limited by motion but there is no visible cord signal abnormality. No visible epidural fluid collection. Impression: 1. No convincing evidence of discitis/osteomyelitis. 2. Chronic endplate fracture deformities at T5, L1, and L3. Exaggerated thoracic kyphosis. 3. Bilateral pleural effusions. -------- FINAL REPORT -------- Dictated By: Gabriel Arguelles Dictated Date: 09/21/2024 08:27 ET Assigned Physician: Gabriel Arguelles Reviewed and Electronically Signed By: Gabriel Arguelles Signed Date: 09/21/2024 08:47 ET Workstation ID: [id number] Transcribed By: Self Edit Transcribed Date: 09/21/2024 08:27 ET US Extremity Nonvascular Limited Right [[id number]] Resulted: 09/18/24 1138 Order Status: No result Updated: 09/18/24 1205 US Asp Abscess/Hematoma/Bulla/Cyst [[id number]] Collected: 09/18/24 1304 Order Status: Completed Updated: 09/19/24 1500 Narrative: INDICATION: Right shoulder effusion TECHNIQUE: Written informed consent obtained. Patient placed supine on the ultrasound stretcher. Multiple images obtained of the right shoulder. After review of the images, the appropriate area of skin was localized under real-time ultrasound. This region was draped and prepped in the usual sterilefashion. 2% buffered lidocaine was used as a local anesthetic. Under real-time ultrasound guidance,needle aspiration was performed using open bore 18-gauge [...] Signed Date: 09/19/2024 14:55 ET Workstation ID: [id number] Transcribed By: Self Edit Transcribed Date: 09/18/2024 13:09 ET Resident/PA/MODERN GREEK STUDIES PROFESSOR: Rosaura Quintanilla CT Chest/Abdomen/Pelvis w Contrast [[id number]] Collected: 09/18/24 1143 Order Status: Completed Updated: 09/18/24 1203 Narrative: CT chest, abdomen, and pelvis, 09/18/2024. HISTORY: Bacteremia. COMPARISON: CT chest 06/26/2024. TECHNIQUE: Contrast-enhanced CT of the chest, abdomen, and pelvis with coronal and sagittal reformats. IV contrast dose: 75 mL [id number]. Dose length product: 461 mGy-cm. FINDINGS: Lungs/pleura: Airways are normal in caliber. Moderate right and small left pleural effusions with associated compressive atelectasis. The right effusion extends into the major fissure. Thin linear markings in the upper lobes represent scarring and/or atelectasis. Mediastinum/viola: No mass or adenopathy. Thoracic vasculature: Extensive atherosclerotic calcifications of the aorta and great vessels. Pulmonary arteries are normal in caliber. No central pulmonary embolism. Cardiac: Mild cardiomegaly. Extensive coronary artery calcifications. Chest wall: Moderate anasarca. Mildly prominent supraclavicular and axillary nodes. The largest measures just under 1 cm in short axis and is located in the left axilla. These are suspected to be reactive. Liver: No focal lesion. Portal veins are patent. Biliary: Normal gallbladder and biliary tree. Pancreas: Normal. Spleen: Normal. Adrenal glands: Normal. Kidneys: Normal appearance of the kidneys. There is a small amount of excreted contrast in the proximal collecting systems which could potentially represent very small calculi. There is no visible collecting system calculus. Retroperitoneum: No mass or adenopathy. Abdominal vasculature: Extensive atherosclerotic calcifications. Bowel/mesentery: No obstruction or adenopathy. No mass or ascites. Abdominal wall: Moderate anasarca. Pelvic nodes: The pelvis is partially obscured by streak artifact. No visible adenopathy. Pelvic organs: The urinary bladder is distended with excreted intravenous contrast. Mild mural trabeculation. Streak artifact partially obscures the pelvis. Uterus is not seen and suspected to be absent. Neither ovary visible. Bones: Again demonstrated is a multilobulated right glenohumeral joint effusion with significant bony remodeling, possibly erosion, of the humeral head and to a lesser degree the glenoid. There is thick irregular synovial enhancement. The findings correlate with a provided history of septic arthritis. There are prominent degenerative changes of the left glenohumeral joint. Bilateral hip arthroplasties. Partially visible side plate and fixation screw hardware in the proximal left femur. Diffuse degenerative changes of the spine. Age indeterminate superior L3 and inferior L1 endplate fracture deformities/large Schmorl's nodes. Impression: 1. Again noted is a large multilobulated right glenohumeral joint effusion with irregular synovial enhancement. There is prominent bony irregularity of the humeral head and less prominent irregularity of the glenoid. The findings correlate with the provided history of a septic joint, with the bony findings raising the possibility of osteomyelitis. 2. Moderate right and small left pleural effusions. Anasarca. 3. Age-indeterminate endplate fractures at L1 and L3. -------- FINAL REPORT -------- Dictated By: Gabriel Arguelles Dictated Date: 09/18/2024 11:43 ET Assigned Physician: Gabriel Arguelles Reviewed and Electronically Signed By: Gabriel Arguelles Signed Date: 09/18/2024 11:58 ET Workstation ID: [id number] Transcribed By: Self Edit Transcribed Date: 09/18/2024 11:52 ET XR Chest 1 View [[id number]] Collected: 09/18/24822 Order Status: Completed Updated: 09/18/24829 Narrative: AP view of the chest, 09/18/2024. HISTORY: Cough, new onset. COMPARISON: 08/13/2024. FINDINGS: The patient's head obscures the left apex. Slight blunting of the costophrenic angles suggesting thickening or trace pleural fluid. Linear markings in the upper lung zones appear slightly improved compared with the previous study. Atherosclerotic calcifications of the aorta. Deformity of both humeral heads, right greater than left. Generalized osteopenia. Impression: Slightly improved aeration of the upper lungs. Small bilateral pleural effusions or pleural thickening. -------- FINAL REPORT -------- Dictated By: Gabriel Arguelles Dictated Date: 09/18/2024 08:23 ET Assigned Physician: Gabriel Arguelles Reviewed and Electronically Signed By: Gabriel Arguelles Signed Date: 09/18/2024 08:25 ET Workstation ID: [id number] Transcribed By: Self Edit Transcribed Date: 09/18/2024 08:[address] Upper Extremity w Contrast Right [[id number]] Collected: 09/17/242133 Order Status: Completed Updated: 09/17/242134 Narrative: Exam: Contrast-enhanced CT of the right shoulder, [...] There is a small right pleural effusion. Impression: Impression: 1. 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 Septic arthritis can not be excluded. Consider joint aspiration. 2. Chronic appearing changes involving the proximal humerus, glenoid, scapula, as well as distal clavicle. However, given this scenario, the possibility of osteomyelitis can not be excluded. This document has been electronically signed by: Tom Peña MD on 09/17/2024 21:34:39 * Nancy Kc MD - 09/27/2024 7:45 AM EST Full Liquid diet, crush meds with puree * Nancy Kc MD - 09/27/2024 7:45 AM EST As tolerated documented in this encounter Discharge Instructions * Discharge Instructions* JAKE Edwards - 09/19/2024 10:37 AM EST ORTHOPEDIC DISCHARGE INSTRUCTIONS Diagnosis: Right shoulder septic arthritis Surgery: Arthroscopic right shoulder washout on 09-19-[address] Mcdowell - Follow up with [facility] in 2 weeks. If you do not already have a follow-up appointment listed below in your discharge instructions, please call to schedule one within 1 to 2 days of discharge. If you are unable to keep your appointment, please contact the office. Contact information is listed below. - Follow up: 10-04-24 at 8:40 AM - On 09-21-24, please take the dressing down and apply adhesive bandages to your wounds. Please washyour hands before and after changing dressing. The wound should not be submerged until after the sutures are removed and you are cleared at your follow up appointment. - Continue antibiotics as prescribed. - You may use your right upper extremity gently as tolerated for self care. - You may resume your regular diet. Drink fluids to keep yourself hydrated. - Please call [facility] with any questions or concerns. [facility] [address] [place] [phone] documented in this encounter Medications at Time of Discharge Medication Sig Dispensed Refills Start Date End Date acetaminophen (TYLENOL) 500 mg tablet Take 2 tablets (1,000 mg total) by mouth every 8 (eight) hours for 10 days. 30 tablet 09/27/2024 10/07/2024 artificial tears,hypromellose, 0.3 % drops Administer 1 drop into affected eye(s) 3 times daily as needed. docusate sodium (COLACE) 100 mg capsule Take 1 capsule (100 mg total) by mouth 2 (two) times a day. 11/19/2022 LORazepam (ATIVAN) 0.5 mg tablet Take 1 tablet (0.5 mg total) by mouth every 6 (six) hours if needed for anxiety for up to 3 days. Hospice patient Max Daily Amount: 2 mg 12 each 09/27/2024 09/30/2024 morphine 100 mg/5 mL (20 mg/mL) concentrated solutionIndications:Art hritis of right shoulder due to other bacteria (CMS/HCC),Bacteremia,HF rEF (heart failure with reduced ejection fraction) (CMS/HCC) Take 0.25 mL (5 mg total) by mouth every 4 (four) hours if needed for severe pain or moderate pain for up to 3 days. Max Daily Amount: 30 mg 15 mL 09/27/2024 09/30/2024 documented as of this encounter Ordered Prescriptions Prescription Sig Dispensed Refills Start Date End Da te LORazepam (ATIVAN) 0.5 mg tablet Take 1 tablet (0.5 mg total) by mouth every 6 (six) hours if needed for anxiety for up to 3 days. Hospice patient Max Daily Amount: 2 mg 12 each 09/27/2024 09/30/2024 morphine 100 mg/5 mL (20 mg/mL) concentrated solutionIndications:Arth ritis of right shoulder due to other bacteria (CMS/HCC),Bacteremia,HFr EF (heart failure with reduced ejection fraction) (CMS/HCC) Take 0.25 mL (5 mg total) by mouth every 4 (four) hours if needed for severe pain or moderate pain for up to 3 days. Max Daily Amount: 30 mg 15 mL 09/27/2024 09/30/2024 acetaminophen (TYLENOL) 500 mg tablet Take 2 tablets (1,000 mg total) by mouth every 8 (eight) hours for 10 days. 30 tablet 09/27/2024 10/07/2024 documented in this encounter Discharge Disposition Disposition Code Departure Means Destination Comment s Hospice/Medical Facility Ambulance documented in this encounter Progress Notes * Tia Carrington RN - 09/27/2024 7:44 AM EST 09/27/24 0743 Initial Transition Plan Initial Transition Plan Hospice Facility ([facility]) Discharge Planning Contact (Name, Phone #, Relationship) for DC Planning John Faye Emergency Contact [phone] Anticipated Discharge Needs Discipline following for SNF placement Senior Marketing SpecialistSubsystems Engineer Transportation at discharge [facility] providing transportation [place] What day is the transport expected? 09/27/24 What time is the transport expected? 0900 Final Discharge Disposition Hospice Facility [facility] updated [facility] VIA Epic, Bedside team messaged, John Faye, called and in agreement. * Khadijah Cooper RN - 09/27/2024 6:00 AM EST Problem: Falls: Fall Risk (Adult IP ) Goal: (Goal) Patient will experience maximum safety and reduce risk for falls. Outcome: Progressing Goal: Patient will not fall or injure themselves during hospitalization. Outcome: Progressing Problem: Swallowing Goal: Patient will tolerate the least restrictive diet consistency to allow for safe consumption ofdaily meals Outcome: Progressing Goal: Patient will tolerate therapeutic trials of recommended consistency without clinical signs and symptoms of aspiration Outcome: Progressing Goals: comfort Identify possible barriers to meeting goals/advancing plan of care: awaiting placement Stability of the patient: Moderately Stable - Low risk of patient condition declining or worsening End of Shift Summary: Pt refusing all medication. 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 * Delvis Eden RN - 09/26/2024 5:52 PM EST Problem: Falls: Fall Risk (Adult IP BH) Goal: (Goal) Patient will experience maximum safety and reduce risk for falls. Outcome: Progressing Goal: Patient will not fall or injure themselves during hospitalization. Outcome: Progressing Problem: Swallowing Goal: Patient will tolerate the least restrictive diet consistency to allow for safe consumption ofdaily meals Outcome: Progressing Goal: Patient will tolerate therapeutic trials of recommended consistency without clinical signs and symptoms of aspiration Outcome: Progressing Goals: Comfort [place] Identify possible barriers to meeting goals/advancing plan of care: Hospice Facility Placement Stability of the patient: Moderately Stable - Low risk of patient condition declining or worsening End of Shift Summary: Comfort maintained this shift. Pt turned and repositioned PRN, when agreeable. Purewick intact and draining dark urine output. Pt requested to start eating to her son, MD notified and diet order/HEAVY EQUIPMENT RENTAL MANAGER eval ordered. Pt took small amounts of soup, a few bites of ice cream and water & gingerale this shift. Son Ovi and Daughter Daniela updated. * Nancy Kc MD - 09/26/2024 3:54 PM EST Images from the original note were not included. BURNSIDE PROGRESS NOTE Date: 09/26/2024 Author: Nancy Kc MD Patient ID: Louann Barrientos is a 74 y.o. female : 1950 MR#: [id number] SUBJECTIVE CC: Here with R septic shoulder, bacteremia. 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 She is more alert today, aware that she is in the hospital and could tell me because of her infection. She is convinced she cannot use her arms because of her surgery in the right shoulder, and she understands that this all lefty medications are currently stopped. She says _I had really nice DrMoise And I trust his judgment, it may be for the best. She asked me for some edward mick, she wanted called, I was able to help her drink. Later HEAVY EQUIPMENT RENTAL MANAGER eval was requested and diet ordered. ROS: She denies pain OBJECTIVE Vitals: 09/23/24 1111 BP: (!) 143/65 Pulse: (!) 121 Resp: 22 Temp: 37.7 ??C (99.8 ??F) SpO2: 95% Physical exam: Gen: awake and alert CVS: regular, tachycardic Pulm: diminished Abd: soft Extr: Unable to lift upper extremities or lower extremities, multiple joint deformities Current Medications: acetaminophen, 1,000 mg, oral, q8h CELESTINO PRN medications: clonazePAM, glycopyrrolate, LORazepam, morphine, morphine HEMATOLOGY Lab Results Component Value Date WBC 15.9 (H) 09/23/2024 HGB 8.3 (L) 09/23/2024 HCT 28.0 (L) 09/23/2024 MCV 75.1 (L) 09/23/2024 PLT 652 (H) 09/23/2024 INR 1.0 08/09/2024 CHEMISTRY Lab Results Component Value Date GLUCOSE 126 (H) 09/23/2024 NA 143 09/23/2024 K 3.8 09/23/2024 CO2 25 09/23/2024 CL 109 09/23/2024 BUN 10 09/23/2024 CREATININE 0.36 (L) 09/23/2024 EGFR 105 09/23/2024 CALCIUM 8.5 09/23/2024 MG 1.8 (L) 09/19/2024 ANIONGAP 9 09/23/2024 ASSESSMENT & PLAN Louann Barrientos is a 74 y.o. female with PMH of advanced RA and Sjogren syndrome, Raynaud's disease, HFrEF, chronic anemia, anxiety, admitted due to right shoulder pain and swelling, leukocytosis and and CT showing right shoulder with large multiloculated glenohumeral joint effusion with signs of possible osteomyelitis. She was diagnosed and treated for right shoulder septic arthritis and MSSA bacteremia, she underwent right shoulder arthroscopic debridement and was treated with IV cefazolin. Blood cultures cleared. TTE did not reveal vegetation. Stay was complicated with her refusal with care, not eating drinking and not taking her medications. Further discussion was held with her and family and she was transitioned to comfort measures - on as needed morphine and Ativan. She is currently awaiting placement. I took over her care on 09/24/2024. Diagnosis: # Right shoulder septic arthritis with sepsis and MSSA bacteremia # HFrEF # Rheumatoid arthritis # Sjogren syndrome # Chronic anemia likely anemia of chronic disease # Anxiety DVT ppx -SCD Code status -DNR/DNI Dispo -pending placement - rehab under private pay is planned, reviewed with CM. HCP -son John [phone] - I met him and his sister on 09/24, care reviewed. * Tia Carrington RN - 09/26/2024 3:43 PM EST 09/26/24 1542 Initial Transition Plan Initial Transition Plan Hospice Facility ([facility]) Anticipated Discharge Needs Discipline following for SNF placement Senior Marketing SpecialistSubsystems Engineer Transportation at discharge [facility] providing transportation Baljinder What day is the transport expected? 09/27/24 What time is the transport expected? 0900 Final Discharge Disposition Hospice Facility [facility] planned for 09/27 @ 9AM after Pt's son delivers co-pay down payment to [facility] after work tonight. * JHON Cain - 09/26/2024 2:55 PM EST Images from the original note were not included. Speech Language Pathology [facility] HEAVY EQUIPMENT RENTAL MANAGER BEDSIDE SWALLOW EVALUATION NAME: Louann Barrientos DATE OF : 1950 ROOM: [address] [place] [address] HEAVY EQUIPMENT RENTAL MANAGER Received On: 09/26/24 Wellness Instructor Required: No TIME IN: 1400 TIME OUT: 1430 TOTAL TIME: 30 min MISSED TIME REASON: FAMILY/CAREGIVER PRESENT: No SUBJECTIVE SUBJECTIVE: Orders acknowledged/received, chart reviewed, and patient cleared by ETHAN Edmondson for swallow evaluation. Patient was alert and lying down in bed leaning to the left. Pt was repositioned but could only tolerate sitting up ~45 degrees. Pt reported that she has been eating mostly soups and mostly wants ice because her taste has changed significantly. Pt had limited participation in eval despite education and encouragement. RN reported that pt had not eaten for weeks but was requesting food and was put on IDDSI 5/0 and was able to tolerate bites of soup earlier in the day without overts/s of aspiration. Principal Problem: Septic arthritis (CMS/HCC) Date Noted: 09/17/2024 Active Problems: 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) Date Noted: 09/17/2024 Resolved Problems: * No resolved hospital problems. * Septic arthritis (CMS/HCC) [M00.9] 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) [M00.811] No admission procedures for hospital encounter. PAST MEDICAL HISTORY: Past Medical History: Diagnosis Date Raynaud disease DX:Raynaud disease Rheumatoid arthritis (CMS/HCC) DX:Rheumatoid arthritis (HCC) Sicca (CMS/HCC) DX:Sicca (HCC) PAST SURGICAL HISTORY: Past Surgical History: Procedure Laterality Date LEG SURGERY Left 11/16/2022 PROCEDURE:LEG SURGERY;COMMENT:Procedure: I&D LEFT LOWER EXTREMITY; Surgeon: Robbie Villagran MD;Location: [facility] MAIN OPERATING ROOM; Service: Orthopedic Trauma; Laterality: Left; OTHER SURGICAL HISTORY Left 10/16/2022 PROCEDURE:ORIF FEMORAL SHAFT FRACTURE W/ PLATES AND SCREWS;COMMENT:Procedure: REPAIR NONUNION LEFT FEMUR/ORIF LEFT FEMUR; Surgeon: Robbie Villagran MD; Location: [facility] MAIN OPERATING ROOM; Service: Orthopedic Trauma; Laterality: Left; TOTAL HIP ARTHROPLASTY Right PROCEDURE:TOTAL HIP ARTHROPLASTY PRIOR LEVEL OF FUNCTIONING: Pt denied swallowing difficulty. Pt did not answer questions regarding recent food intake/current diet. Pt reported that she is a picky eater. IMAGING RESULTS: MRI Brain No results found for this or any previous visit. CT Head No results found for this or any previous visit. Chest Portable Results for orders placed during the hospital encounter of 09/17/24 XR Chest 1 View Narrative AP view of the chest, 09/18/2024. HISTORY: Cough, new onset. COMPARISON: 08/13/2024. FINDINGS: The patient's head obscures the left apex. Slight blunting of the costophrenic angles suggesting thickening or trace pleural fluid. Linear markings in the upper lung zones appear slightly improved compared with the previous study. Atherosclerotic calcifications of the aorta. Deformity of both humeral heads, right greater than left. Generalized osteopenia. Impression Slightly improved aeration of the upper lungs. Small bilateral pleural effusions or pleural thickening. -------- FINAL REPORT -------- Dictated By: Gabriel Arguelles Dictated Date: 09/18/2024 08:23 ET Assigned Physician: Gabriel Arguelles Reviewed and Electronically Signed By: Gabriel Arguelles Signed Date: 09/18/2024 08:25 ET Workstation ID: [id number] Transcribed By: Self Edit Transcribed Date: 09/18/2024 08:23 ET Chest 2 View Results for orders placed during the hospital encounter of 08/08/24 XR Chest 2 Views Narrative Frontal and lateral view of the chest COMPARISON: Chest radiograph August 08. Chest radiograph June [address] June 26. INDICATION: Back and chest pain Impression Scattered airspace opacities are again noted in the upper chest bilaterally, greater on the right. This is similar to prior radiographs in August and June. Suggestion of small right-sided pleural effusion. Mediastinum appears within normal limits. -------- FINAL REPORT -------- Dictated By: Henri Navarro Dictated Date: 08/13/2024 10:06 ET Assigned Physician: Henri Navarro Reviewed and Electronically Signed By: Henri Navarro Signed Date: 08/13/2024 10:08 ET Workstation ID: [id number] Transcribed By: Self Edit Transcribed Date: 08/13/2024 10:[address] No results found for this or any previous visit. NIH Stroke Scale: ALLERGIES: Allergies Allergen Reactions Other Swelling Styrofoam Penicillins Pineapple Per [employer] record, pt has an allergy to pineapple, causes itching in mouth and throat Sulfa (Sulfonamide Antibiotics) OBJECTIVE OXYGEN THERAPY: Oxygen Therapy: None (Room air) DYSPHAGIA SYMPTOMS REPORTED BY PATIENT: Denies any swallowing issues NPO: no CURRENT DIET TEXTURES ORDERED: IDDSI Level 5 Minced and Moist IDDSI Level 0 Thin FEEDING METHOD: Dependent For Feeding MENTAL STATUS: Alert SWALLOW BASELINE ASSESSMENT: Respiratory Status: Room air History of Intubation: No Behavior/Cognition: Alert, Lethargic Dentition: Adequate Patient Positioning: Upright in bed (pt could only tolerate sitting at 45 degrees, could not tolerate sitting upright at 90 degrees) Baseline Vocal Quality: Within Functional Limits MOTOR SPEECH: Labial ROM: (reduced) Labial Symmetry: Within Functional Limits Lingual Appearance: Dry, White coating Lingual ROM: (reduced) Lingual Symmetry: Within Functional Limits Facial ROM: Within Functional Limits Facial Symmetry: Within Functional Limits Velum: Within Functional Limits Mandible: (reduced opening) Vocal Quality: Within Functional Limits Intelligibility: Intelligible 100% CONSISTENCIES ASSESSED: Yes Ice Chips Presentation: Spoon, Therapist fed Oral: Impaired Mastication, Increased oral transit Pharyngeal: Decreased laryngeal elevation Amount: x8 ice chips Thin Presentation: Straw, Therapist fed Oral: Within functional limits Pharyngeal: Decreased laryngeal elevation Amount: x4 sips and x1 bite of ice cream Puree Presentation: Spoon, Therapist fed Oral: Oral residue, Increased oral transit Pharyngeal: Decreased laryngeal elevation Amount: x3 bites Ground/Minced & Moist/ Moist Ground Presentation: Spoon, Therapist fed Oral: Other (Comment) (pt spat out bite because she could not tolerate the taste) ASSESSMENT/RECOMMENDATIONS ASPIRATION RISK: Recommendations: Dysphagia treatment Diet Solids Recommendation: No solids, see liquids Diet Liquids Recommendation: Thin liquids Liquid Administration Via: Cup, Straw, Spoon Supervision Level: One to one assist with meals Compensatory Swallowing Strategies: Upright as possible for all oral intake, Alternate solids and liquids, Small bites/sips, Eat/feed slowly, Slow rate of intake Recommended Medication Route: PO Recommended Medication Administration: Crushed (in puree) HEAVY EQUIPMENT RENTAL MANAGER ASSESSMENT: HEAVY EQUIPMENT RENTAL MANAGER Assessment Results: Swallowing impairments Dysphagia Diagnosis: (oropharyngeal dysphagia) Evaluation/Treatment Tolerance: Patient limited by fatigue Medical Staff Made Aware: Yes Comments: Disucessed w/ RN and message sent to provider CURRENT DIET: Dietary Orders (From admission, onward) Start Ordered 09/26/24 1113 Adult diet [facility]; General, Modified Consistency Options for Liquids and Solids; Regular; IDDSI Level 5 Minced & Moist Diet effective now Question Answer Comment Location [facility] Diet Type (req) General Diet Type (req) Modified Consistency Options for Liquids and Solids General Diet Regular Modified Consistency Options for Liquids and Solids IDDSI Level 5 Minced & Moist 09/26/24 1113 PLAN OF CARE HEAVY EQUIPMENT RENTAL MANAGER PLAN Treatment/Interventions: Swallow function HEAVY EQUIPMENT RENTAL MANAGER Plan: Skilled HEAVY EQUIPMENT RENTAL MANAGER HEAVY EQUIPMENT RENTAL MANAGER Frequency: 2-5 days per week HEAVY EQUIPMENT RENTAL MANAGER Treatments per day: 1 time per day HEAVY EQUIPMENT RENTAL MANAGER - Evaluation Status: Complete Diet Recommendations: Full liquid diet DISCHARGE RECOMMENDATIONS Ongoing Skilled Speech-Language Pathology (HEAVY EQUIPMENT RENTAL MANAGER) services at next level of care. EDUCATION Education Documentation Modified Diet Training, taught by Holli Stinson, HEAVY EQUIPMENT RENTAL MANAGER at 09/26/2024 2:54 PM. Learner: Patient Readiness: Acceptance Method: Explanation Response: Verbalizes Understanding, Needs Reinforcement Comment: Pt was provided education about changes in swallowing and taste, swallowing strategies, and modified diets. Education Comments No comments found. GOALS Encounter Problems Encounter Problems (Active) Template: Speech Therapy Problem: Swallowing Dates: Start: 09/26/24 Goal: Patient will tolerate the least restrictive diet consistency to allow for safe consumption ofdaily meals Dates: Start: 09/26/24 Expected End: 10/03/24 Description: Goal Type: STG, Performance Level: Independent Goal: Patient will tolerate therapeutic trials of recommended consistency without clinical signs and symptoms of aspiration Dates: Start: 09/26/24 Expected End: 10/03/24 Description: Goal Type: STG, Performance Level: Independent Encounter Problems (Resolved) There are no resolved problems. Associated attestation - Mamei Mnuroe SLP - 09/26/2024 4:48 PM EST I attest that I, Norah Munroe M.S.,[facility]-HEAVY EQUIPMENT RENTAL MANAGER, was physically involved in the ongoing assessment, decision making, and interventions provided during today's patient care session. I have reviewed all documentation for today's 09/26/24, entered by Speech Therapy Fellow, Holli Stinson, and further attest that it is an accurate clinical record of today's encounter, including accurate and appropriate charges. * Tia Carrington RN - 09/26/2024 11:19 AM EST MINERVA: TAMIKO montalvo [facility]riers[facility] contact [facility] family and asked to contact them to arrange payment, [facility] trying to get in contact w Pt's civil attorney to arrange payment and has been unsuccessful. [facility] called John Barrientos, Son, Emergency Contact, to see if Pt has a checkbook and can sign a check to pay for deposit to [facility]. Ovi says she does and can bring it over later tonight after work. Ovi is under the impression only a bank check will suffice. [facility] messaged [facility] Liaison to see if a personal check is acceptable to cover deposit. Liaison is checking w [facility] admini strators to confirm acceptance of personal check. [facility] asked if Meli has a legal team that can assist w DPOA? SW consulted. PER SW, DPOA is for health care, if they need to navigate finances they need just a regular Power of G[employer], they need to ask an civil attorney to do one. I could try to find some elder law attorneys toprovide but any civil attorney can draw one. [facility]. Perhaps Pt's existing Atty can assist. * Khadijah Son RN - 09/26/2024 1:51 AM EST Goals: Problem: Falls: Fall Risk (Adult IP BH) Goal: (Goal) Patient will experience maximum safety and reduce risk for falls. 09/26/2024 0151 by Khadijah Chaudhari RN Outcome: Progressing 09/26/2024 0150 by Khadijah Chaudhari RN Outcome: Progressing Goal: Patient will not fall or injure themselves during hospitalization. 09/26/2024 015 by Khadijah Chaudhari RN Outcome: Progressing 09/26/2024 0150 by Khadijah Chaudhari RN Outcome: Progressing Identify possible barriers to meeting goals/advancing plan of care: awaiting financial issues w rehab placement Stability of the patient: Moderately Stable - Low risk of patient condition declining or worsening End of Shift Summary: more awake overnight chavo fluids well * Delvis Eden RN - 09/25/2024 7:12 PM EST Problem: Falls: Fall Risk (Adult IP BH) Goal: (Goal) Patient will experience maximum safety and reduce risk for falls. Outcome: Progressing Goal: Patient will not fall or injure themselves during hospitalization. Outcome: Progressing Goals: Comfort Measures Only Identify possible barriers to meeting goals/advancing plan of care: Insurance Authorization for transition of care to another facility to carry out comfort measures. Stability of the patient: Moderately Unstable - Medium risk of patient condition declining or worsening End of Shift Summary: Comfort maintained. Pt denies pain. Complained of thirst and dry mouth. Mouthswabbed and water, gingerale offered PRN for comfort. Purewick functioning with minimal dark urine output. Turned and repositioned as needed. Allevyn changed to coccyx and 2x2 mepilex applied to leftelbow redness. * Nancy Kc MD - 09/25/2024 3:29 PM EST Images from the original note were not included. LOUIE PROGRESS NOTE Date: 09/25/2024 Author: Nancy Kc MD Patient ID: Louann Barrientos is a 74 y.o. female : 1950 MR#: [id number] SUBJECTIVE CC: Here with R septic shoulder, bacteremia. 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 She is somnolent, opens eyes on command but closes right away, she knows she is in the hospital, tells me her doctor told her no more medications and see what happens, she does not want to talk more about it. She would like some water and asked me to help, could hardly drink it due to severe kyphoscoliosis/cervical deformity, can recinos move her arms, cannot lift them any more, she says it all happened here, cannot move any more.. ROS: Unable to obtain. Minimally interactive OBJECTIVE Vitals: 09/23/24 1111 BP: (!) 143/65 Pulse: (!) 121 Resp: 22 Temp: 37.7 ??C (99.8 ??F) SpO2: 95% Physical exam: Gen: fatigued and somnolent CVS: regular, tachycardic Pulm: diminished Abd: soft Current Medications: acetaminophen, 1,000 mg, oral, q8h CELESTINO PRN medications: clonazePAM, glycopyrrolate, LORazepam, morphine, morphine HEMATOLOGY Lab Results Component Value Date WBC 15.9 (H) 09/23/2024 HGB 8.3 (L) 09/23/2024 HCT 28.0 (L) 09/23/2024 MCV 75.1 (L) 09/23/2024 PLT 652 (H) 09/23/2024 INR 1.0 08/09/2024 CHEMISTRY Lab Results Component Value Date GLUCOSE 126 (H) 09/23/2024 NA 143 09/23/2024 K 3.8 09/23/2024 CO2 25 09/23/2024 CL 109 09/23/2024 BUN 10 09/23/2024 CREATININE 0.36 (L) 09/23/2024 EGFR 105 09/23/2024 CALCIUM 8.5 09/23/2024 MG 1.8 (L) 09/19/2024 ANIONGAP 9 09/23/2024 Imaging: MR Thoracic Spine wo Contrast Narrative: PROCEDURE: Noncontrast MRI of the thoracic spine. HISTORY: Back trauma, no prior imaging (Age >= 16y) Bacteremia. COMPARISON: CT chest abdomen and pelvis 09/18/2024. TECHNIQUE: Multiplanar multisequence MRI of the thoracic spine without intravenous contrast administration. FINDINGS: Limited study secondary to patient motion. Mild cardiomegaly. Moderate right and small left pleural effusions. Mildly exaggerated thoracic kyphosis. Degenerative changes of the lumbar spine and a lumbar levoscoliosis with superior L3 and inferior L1 endplate fractures. There is also mild superior endplate deformity at T5. Total spine T2 fat- saturated images were performed and there is no marrow edema associated with any of these fractures, suggesting that they are chronic. There is trace fluid signal in the L2-3 intervertebral disc space suspected to be degenerative; no convincing evidence of discitis/osteomyelitis. No significant spinal stenosis. The neural foramina not well evaluated due to motion and scoliosis. Normal position of the conus at approximately L1. Assessment of the cord is limited by motion but there is no visible cord signal abnormality. No visible epidural fluid collection. Impression: 1. No convincing evidence of discitis/osteomyelitis. 2. Chronic endplate fracture deformities at T5, L1, and L3. Exaggerated thoracic kyphosis. 3. Bilateral pleural effusions. -------- FINAL REPORT -------- Dictated By: Gabriel Arguelles Dictated Date: 09/21/2024 08:27 ET Assigned Physician: Gabriel Arguelles Reviewed and Electronically Signed By: Gabriel Arguelles Signed Date: 09/21/2024 08:47 ET Workstation ID: [id number] Transcribed By: Self Edit Transcribed Date: 09/21/2024 08:27 ET ASSESSMENT & PLAN Louann Barrientos is a 74 y.o. female with PMH of advanced RA and Sjogren syndrome, Raynaud's disease, HFrEF, chronic anemia, anxiety, admitted due to right shoulder pain and swelling, leukocytosis and and CT showing right shoulder with large multiloculated glenohumeral joint effusion with signs of possible osteomyelitis. She was diagnosed and treated for right shoulder septic arthritis and MSSA bacteremia, she underwent right shoulder arthroscopic debridement and was treated with IV cefazolin. Blood cultures cleared. TTE did not reveal vegetation. Stay was complicated with her refusal with care, not eating drinking and not taking her medications. Further discussion was held with her and family and she was transitioned to comfort measures - on as needed morphine and Ativan. She is currently awaiting placement. I took over her care on 09/24/2024. Diagnosis: # Right shoulder septic arthritis with sepsis and MSSA bacteremia # HFrEF # Rheumatoid arthritis # Sjogren syndrome # Chronic anemia likely anemia of chronic disease # Anxiety DVT ppx -SCD Code status -DNR/DNI Dispo -pending placement - rehab under private pay is planned, reviewed with CM. HCP -son John [phone] - I met him and his sister on 09/24, care reviewed. * Tia Carrington RN - 09/25/2024 2:58 PM EST [facility] s/w John, HCP and discussed [facility]. In agreement w/ [facility] pending financial arrangements with Pt's civil attorney. [facility] called [facility] medical scientific liaison to see if arrangements have been completed and learned theyhave not heard back from [employer]. * Gertrude Mackenzie - 09/25/2024 2:26 PM EST IMM to give to pt, patient was unable to sign, left a copy. * Khadijah Son RN - 09/25/2024 1:57 AM EST Problem: Falls: Fall Risk (Adult IP ) Goal: (Goal) Patient will experience maximum safety and reduce risk for falls. Outcome: Progressing Goal: Patient will not fall or injure themselves during hospitalization. Outcome: Progressing Goals: Identify possible barriers to meeting goals/advancing plan of care: await placement Stability of the patient: Moderately Stable - Low risk of patient condition declining or worsening End of Shift Summary: comfortable. Refuses most care * Becky Busch RN - 09/24/2024 2:46 PM EST IC spoke to [facility], they have facilitys and prices. [facility] to call [facility] tomorrow with choice, he is aware he will need to drop off a bank check to his facility of choice and then we will arrangetransport of patient. * Nancy Kc MD - 09/24/2024 1:40 PM EST Images from the original note were not included. LOUIE PROGRESS NOTE Date: 09/24/2024 Author: Nancy Kc MD Patient ID: Louann Barrientos is a 74 y.o. female : 1950 MR#: [id number] SUBJECTIVE CC: Here with R septic shoulder, bacteremia. 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 Seen first time. She is somnolent, denies pain. Does not open her eyes. ROS: Unable to obtain. Minimally interactive OBJECTIVE Vitals: 09/23/24 1111 BP: (!) 143/65 Pulse: (!) 121 Resp: 22 Temp: 37.7 ??C (99.8 ??F) SpO2: 95% Physical exam: Gen: fatigued and somnolent CVS: regular, tachycardic Pulm: diminished Abd: soft Current Medications: acetaminophen, 1,000 mg, oral, q8h CELESTINO PRN medications: clonazePAM, glycopyrrolate, LORazepam, morphine, morphine HEMATOLOGY Lab Results Component Value Date WBC 15.9 (H) 09/23/2024 HGB 8.3 (L) 09/23/2024 HCT 28.0 (L) 09/23/2024 MCV 75.1 (L) 09/23/2024 PLT 652 (H) 09/23/2024 INR 1.0 08/09/2024 CHEMISTRY Lab Results Component Value Date GLUCOSE 126 (H) 09/23/2024 NA 143 09/23/2024 K 3.8 09/23/2024 CO2 25 09/23/2024 CL 109 09/23/2024 BUN 10 09/23/2024 CREATININE 0.36 (L) 09/23/2024 EGFR 105 09/23/2024 CALCIUM 8.5 09/23/2024 MG 1.8 (L) 09/19/2024 ANIONGAP 9 09/23/2024 Imaging: MR Thoracic Spine wo Contrast Narrative: PROCEDURE: Noncontrast MRI of the thoracic spine. HISTORY: Back trauma, no prior imaging (Age >= 16y) Bacteremia. COMPARISON: CT chest abdomen and pelvis 09/18/2024. TECHNIQUE: Multiplanar multisequence MRI of the thoracic spine without intravenous contrast administration. FINDINGS: Limited study secondary to patient motion. Mild cardiomegaly. Moderate right and small left pleural effusions. Mildly exaggerated thoracic kyphosis. Degenerative changes of the lumbar spine and a lumbar levoscoliosis with superior L3 and inferior L1 endplate fractures. There is also mild superior endplate deformity at T5. Total spine T2 fat- saturated images were performed and there is no marrow edema associated with any of these fractures, suggesting that they are chronic. There is trace fluid signal in the L2-3 intervertebral disc space suspected to be degenerative; no convincing evidence of discitis/osteomyelitis. No significant spinal stenosis. The neural foramina not well evaluated due to motion and scoliosis. Normal position of the conus at approximately L1. Assessment of the cord is limited by motion but there is no visible cord signal abnormality. No visible epidural fluid collection. Impression: 1. No convincing evidence of discitis/osteomyelitis. 2. Chronic endplate fracture deformities at T5, L1, and L3. Exaggerated thoracic kyphosis. 3. Bilateral pleural effusions. -------- FINAL REPORT -------- Dictated By: Gabriel Arguelles Dictated Date: 09/21/2024 08:27 ET Assigned Physician: Gabriel Arguelles Reviewed and Electronically Signed By: Gabriel Arguelles Signed Date: 09/21/2024 08:47 ET Workstation ID: [id number] Transcribed By: Self Edit Transcribed Date: 09/21/2024 08:27 ET ASSESSMENT & PLAN Louann Barrientos is a 74 y.o. female with PMH of advanced RA and Sjogren syndrome, Raynaud's disease, HFrEF, chronic anemia, anxiety, admitted due to right shoulder pain and swelling, leukocytosis and and CT showing right shoulder with large multiloculated glenohumeral joint effusion with signs of possible osteomyelitis. She was diagnosed and treated for right shoulder septic arthritis and MSSA bacteremia, she underwent right shoulder arthroscopic debridement and was treated with IV cefazolin. Blood cultures cleared. TTE did not reveal vegetation. Stay was complicated with her refusal with care, not eating drinking and not taking her medications. Further discussion was held with her and family and she was transitioned to comfort measures - on as needed morphine and Ativan. She is currently awaiting placement. I took over her care on 09/24/2024. Diagnosis: # Right shoulder septic arthritis with sepsis and MSSA bacteremia # HFrEF # Rheumatoid arthritis # Sjogren syndrome # Chronic anemia likely anemia of chronic disease # Anxiety DVT ppx -SCD Code status -DNR/DNI Dispo -pending placement HCP -winston Lopez [phone] * Becky Busch RN - 09/24/2024 11:51 AM EST CM Progress Note MINERVA: 09/26 Barriers: Hospice informational with [facility] 09/24 pm, need to give rates of accepting facilitys to family and they will need to bring check to facility if they choose to go the hospice route. Plan: SNF ? On hospice, family meeting with [facility] Tuesday pm-patient came from [facility] and is a private pay bedhold. * JAKE Gan - 09/24/2024 11:43 AM EST Orthopedic trauma surgery progress note for right shoulder septic arthritis s/p arthroscopic debridement right shoulder. Chief Complaint Patient presents with Blood Infection . Subjective Louann has been made [facility]. Found resting comfortable in bed. Assessment Septic arthritis R shoulder s/p arthroscopic debridement R shoulder Bacteremia Patient made STEEL PICKLER. Reinforce and change right shoulder dressing prn. Orthopedics will sign off. Please reconsult if medically necessary. Discussed and reviewed with Dr. Mcdowell, orthopedic surgery attending. JAKE Gan Orthopedic Surgery 09/24/2024 11:43 AM EST * Mary Constantino RD - 09/24/2024 7:44 AM EST Nutrition Brief Note Pt has transitioned to comfort level of care. Oral diet has been discontinued. Please consult if nutrition intervention is desired. Per case management documentation, plan is for Hospice care at a facility. * Becky Busch RN - 09/23/2024 3:52 PM EST Son requesting hospice informational, will be looking for hospice in a facility. Explained private pay, will put out wide search to SNF requesting rates as children are not able to take her home. Eloise [phone], daughter Daniela [phone] Family has chosen [facility] in [place]. Info sent to to contact son Fely * JAKE Pyle - 09/23/2024 11:02 AM EST Louann Barrientos 09[birth year] 74 y.o. [id number] Bernardo Alcantara MD SUBJECTIVE : Staff reported patient is refusing care. OBJECTIVE: Visit Vitals BP (!) 141/71 (BP Location: Left arm, Patient Position: Lying) Pulse (!) 113 Temp 36.6 ??C (97.8 ??F) (Temporal) Resp 20 Temp (24hrs), Av.8 ??C (98.3 ??F), Min:36.6 ??C (97.8 ??F), Max:37.1 ??C (98.8 ??F) Body mass index is 18.98 kg/m??. No results found for: PTWT , PTHT Intake/Output Summary (Last 24 hours) at 09/23/2024 1102 Last data filed at 09/22/2024 1300 Gross per 24 hour Intake 20 ml Output -- Net 20 ml Wt Readings from Last 1 Encounters: 09/23/24 0625 45.5 kg (100 lb 6.4 oz) 09/21/24 0500 45.6 kg (100 lb 9.6 oz) 09/19/24 1756 45.8 kg (101 lb) 09/18/24 1358 46.2 kg (101 lb 13.6 oz) 09/17/24 1553 46.3 kg (102 lb) PHYSICAL EXAM: GEN: More alert, mildly confused. No distress. HEENT: Atraumatic, symmetric, PERRLA. Neck: Supple, nontender, no range of motion limitation. Lungs: Clear, no accessory muscle use. Heart: Regular, no murmur. Abdomen: Not distended, soft, nontender. Bowel sounds present. MSK: Right shoulder with bandage. Neuro: Awake, mildly confused. Follows commands. Inability to move right upper extremity. Psych: Calm. RESULTS: CBC BMP Results from last 7 days Lab Units 09/23/24 0530 09/22/24 0559 09/21/24 0622 09/20/24 0838 WBC AUTO K/mcL 15.9* 13.0* 13.0* 17.6* 28.2* HEMOGLOBIN g/dL 8.3* 7.8* 7.8* 7.6* 8.8* HEMATOCRIT % 28.0* 25.7* 25.7* 25.0* 29.5* PLATELETS K/mcL 652* 595* 595* 584* 611* LYMPHS PCT AUTO % 7.5 7.7 7.3 5.3 MONO PCT AUTO % 6.5 6.8 4.6 3.5 EOS PCT AUTO % 0.0 0.0 0.0 0.0 Results from last 7 days Lab Units 09/23/24 0530 09/22/24 0559 09/21/24 0622 09/20/24 0543 09/19/24 0546 SODIUM mmol/L 143 142 140 137 137 POTASSIUM mmol/L 3.8 3.5 3.8 4.3 3.9 CHLORIDE mmol/L 109 106 104 105 102 CO2 mmol/L 25 22 25 22 23 ANION GAP 9 14* 11 10 12* BUN mg/dL 10 9 16 21 12 CREATININE mg/dL 0.36* 0.22* 0.20* 0.25* <0.15* CALCIUM mg/dL 8.5 8.4* 8.0* 8.1* 7.9* MAGNESIUM mg/dL -- -- -- -- 1.8* Results from last 7 days Lab Units 09/23/24 0821 09/23/24 0530 09/22/24 2112 09/22/24 1707 09/22/24 1238 POCT GLUCOSE mg/dL 129* -- 96 100 92 GLUCOSE mg/dL -- 114* -- -- -- Results from last 7 days Lab Units 09/19/24 0546 09/17/24 1833 AST unit/L 27 9* ALT unit/L <6* <6* Imaging: Scheduled Medications PRN Medications IV Medications acetaminophen, 1,000 mg, q8h CELESTINO atorvastatin, 80 mg, Daily clonazePAM, 0.5 mg, TID PRN oxyCODONE, 2.5 mg, q3h PRN oxyCODONE, 5 mg, q3h PRN ASSESSMENT/PLAN: Right shoulder septic arthritis r/o 74-year-old female with PMH of rheumatoid arthritis, HFrEF, Sjogren's syndrome, chronic anemia, Raynaud's syndrome and anxiety who presented to the ED from [facility] for right shoulder pain with leukocytosis. On presentation, she was tachycardic 111. PDE 5 1.16. The rest of vital sign was stable. CBC showedleukocytosis 19.8. CT of right shoulder showed large multiloculated glenohumeral joint effusion, signs of possible osteomyelitis. Patient was started on antibiotics. status post right shoulder arthroscopic irrigation and debridement on September 19. Tissue culture showing: MSSA Today, reporting denied right shoulder pain. Patient has been refusing care including imaging, p.o. medications, nutrition. Patient's son updated over phone. Later on, patient and patient's son have decided for [facility]. ICC updated. Pending disposition. Bacteremia Severe sepsis Blood cultures from September 17, 2024: Staph aureus. Patient met SIRS criteria with fever, tachycardia, leukocytosis. TTE done on September 18: EF 35-30, no sign of vegetation. No fever overnight. Unable to obtain spine MRI despite sedation. ID on board: CT spine recommended as patient was unable to tolerate MRI with contrast. Appreciate input. Blood cultures from September 19: Negative for 72 hours. Patient was tachycardic overnight, due to refusal of medication including beta-stacey. This morning, patient made STEEL PICKLER. Case discussed with Dr Alcantara Time spent: 60 minutes. Disclaimer: Speech recognition software was utilized to dictate portions of this document. Errors in county engineer may be present. Please call / cortext me if any questions. Portions of this note such ROS, Exam, Assessment and Plan were copy pasted from previous notes. Information was reviewed and changes were made accordingly. I agree with above mentioned information Associated attestation - Bernardo Alcantara MD - 09/23/2024 3:48 PM EST Patient was seen and examined. Agree with the general content of the note above unless stated otherwise. I conducted an independent review of the medical chart and formulated the care plan in its entirety. Goals of care discussion underway Case discussed with nursing and ICC * Mamie Gomez RN - 09/22/2024 1:51 PM EST Goals: Identify possible barriers to meeting goals/advancing plan of care: pt has been reporting pain and increase in anxiety. Stability of the patient: Moderately Stable - Low risk of patient condition declining or worsening End of Shift Summary: pt reporting pain and anxiety. Pt educated on available medications as well as scheduled medications. Pt refuses medications offered to her for pain. Will continue to educate onavailability of pain medications to the patient. * JAKE Pyle - 09/22/2024 11:41 AM EST Louann Barrientos [birth year] 74 y.o. [id number] Bernardo Alcantara MD SUBJECTIVE : Reporting inability to move her right shoulder. No fever, night sweats, chills. OBJECTIVE: Visit Vitals BP (!) 142/63 (BP Location: Left arm, Patient Position: Lying) Pulse 102 Temp 36.5 ??C (97.7 ??F) (Temporal) Resp 12 Temp (24hrs), Av.4 ??C (97.6 ??F), Min:36.3 ??C (97.3 ??F), Max:36.7 ??C (98 ??F) Body mass index is 19.02 kg/m??. No results found for: PTWT , PTHT Intake/Output Summary (Last 24 hours) at 09/22/2024 1142 Last data filed at 09/22/2024 0059 Gross per 24 hour Intake 140 ml Output 1 ml Net 139 ml Wt Readings from Last 1 Encounters: 09/21/24 0500 45.6 kg (100 lb 9.6 oz) 09/19/24 1756 45.8 kg (101 lb) 09/18/24 1358 46.2 kg (101 lb 13.6 oz) 09/17/24 1553 46.3 kg (102 lb) PHYSICAL EXAM: GEN: More alert, mildly confused. No distress. HEENT: Atraumatic, symmetric, PERRLA. Neck: Supple, nontender, no range of motion limitation. Lungs: Clear, no accessory muscle use. Heart: Regular, no murmur. Abdomen: Not distended, soft, nontender. Bowel sounds present. MSK: Right shoulder with bandage. Neuro: Awake, mildly confused. Follows commands. Inability to move right upper extremity. Psych: Calm. RESULTS: CBC BMP Results from last 7 days Lab Units 09/22/24 0559 09/21/24 0622 09/20/24 0838 09/19/24 0808 WBC AUTO K/mcL 13.0* 13.0* 17.6* 28.2* 26.0* HEMOGLOBIN g/dL 7.8* 7.8* 7.6* 8.8* 9.1* HEMATOCRIT % 25.7* 25.7* 25.0* 29.5* 29.8* PLATELETS K/mcL 595* 595* 584* 611* 552* LYMPHS PCT AUTO % 7.7 7.3 5.3 3.6 MONO PCT AUTO % 6.8 4.6 3.5 4.4 EOS PCT AUTO % 0.0 0.0 0.0 0.1 Results from last 7 days Lab Units 09/22/24 0559 09/21/24 0622 09/20/24 0543 09/19/24 0546 SODIUM mmol/L 142 140 137 137 POTASSIUM mmol/L 3.5 3.8 4.3 3.9 CHLORIDE mmol/L 106 104 105 102 CO2 mmol/L 22 25 22 23 ANION GAP 14* 11 10 12* BUN mg/dL 9 16 21 12 CREATININE mg/dL 0.22* 0.20* 0.25* <0.15* CALCIUM mg/dL 8.4* 8.0* 8.1* 7.9* MAGNESIUM mg/dL -- -- -- 1.8* Results from last 7 days Lab Units 09/22/24 0821 09/22/24 0559 09/21/24 2009 09/21/24 1845 09/21/24 1220 POCT GLUCOSE mg/dL 85 -- 92 78 88 GLUCOSE mg/dL -- 76 -- -- -- Results from last 7 days Lab Units 09/19/24 0546 09/17/24 1833 AST unit/L 27 9* ALT unit/L <6* <6* Imaging: Scheduled Medications PRN Medications IV Medications acetaminophen, 1,000 mg, q8h CELESTINO ascorbic acid, 500 mg, Daily atorvastatin, 80 mg, Daily ceFAZolin, 2 g, q8h dapagliflozin propanediol, 10 mg, Daily furosemide, 20 mg, Daily heparin (porcine), 5,000 Units, q8h CELESTINO magnesium sulfate, 2 g, Once metoprolol tartrate, 25 mg, BID sertraline, 25 mg, Daily spironolactone, 25 mg, Daily clonazePAM, 0.5 mg, TID PRN dextrose 50%, 12.5 g, q15 min PRN dextrose 50%, 25 g, q15 min PRN dextrose, 15 g, q15 min PRN dextrose, 30 g, q15 min PRN glucagon injection, 1 mg, Once PRN HYDROmorphone, 0.25 mg, q2h PRN metoprolol tartrate, 5 mg, q6h PRN oxyCODONE, 2.5 mg, q3h PRN oxyCODONE, 5 mg, q3h PRN ASSESSMENT/PLAN: Right shoulder septic arthritis r/o 74-year-old female with PMH of rheumatoid arthritis, HFrEF, Sjogren's syndrome, chronic anemia, Raynaud's syndrome and anxiety who presented to the ED from SNF for right shoulder pain with leukocytosis. On presentation, she was tachycardic 111. PDE 5 1.16. The rest of vital sign was stable. CBC showedleukocytosis 19.8. CT of right shoulder showed large multiloculated glenohumeral joint effusion, signs of possible osteomyelitis. Patient was started on antibiotics. status post right shoulder arthroscopic irrigation and debridement on September 19. Tissue culture showing: MSSA Today, reporting right shoulder pain. Vital signs stable. White count improvin.0 from 17.6. Continue with cefazolin. Ortho on board. Appreciate input. Bacteremia Severe sepsis Blood cultures from September 17, 2024: Staph aureus. Patient met SIRS criteria with fever, tachycardia, leukocytosis. TTE done on September 18: EF 35-30, no sign of vegetation. No fever overnight. Unable to obtain spine MRI despite sedation. This morning vital signs stable. White count improvin.0 from 17.6. Blood culture from September 18: Staph. Blood cultures from September 19: Negative for 48 hours. ID on board: CT spine recommended as patient is unable to tolerate MRI with contrast. Appreciate input. Patient continued to refuse spine imaging. Waiting for ID recommendations regarding outpatient antibiotic therapy. Continue with cefazolin. Chronic systolic CHF EF 30-35% On Farxiga, spironolactone, furosemide, metoprolol. Anemia Likely secondary to blood loss from surgery, blood draws Hemoglobin 7.8 from 7.6. Monitoring. Hyperlipidemia On statin. Hypokalemia Corrected. Pressure wounds sacral location. Wound care consulted. CODE STATUS Full DVT prophylaxis Heparin. Family notification Updated patient's son on September 20. Case discussed with Dr Alcantara Time spent: 30 minutes. Disclaimer: Speech recognition software was utilized to dictate portions of this document. Errors in county engineer may be present. Please call / cortext me if any questions. Portions of this note such ROS, Exam, Assessment and Plan were copy pasted from previous notes. Information was reviewed and changes were made accordingly. I agree with above mentioned information Associated attestation - Bernardo Alcantara MD - 09/23/2024 8:29 AM EST Patient was seen and examined. Agree with the general content of the note above unless stated otherwise. I conducted an independent review of the medical chart and formulated the care plan in its entirety. Patient continues to refuse imaging (CT and MRI as requested by ID). ID follow- up 09/24 Case discussed with nursing and ICC * Henri Mcdowell MD - 09/22/2024 10:42 AM EST Orthopedic Progress Note CC: Right shoulder, septic arthritis HPI: 74-year-old female with rheumatoid Presented with bacteremia S/p right shoulder arthroscopic debridement Patient is still uncomfortable but improved Portals: No drainage Patient has some mild guarding WBC inflammatory and laboratory values/inflammatory markers continue to fall Plan: Continue intravenous antibiotics Orthopedics will continue to follow HUNTER Mcdowell MD * Stacia Lewis MD - 09/21/2024 3:44 PM EST Louann Barrientos is here for { Blood Infection Subjective The patient is extremely tearful and uncomfortable. States that she is in a lot of pain from her shoulder. She was Review of Systems Review of Systems Constitutional: Negative. HENT: Negative. Respiratory: Negative. Cardiovascular: Negative. Gastrointestinal: Negative. Genitourinary: Negative. Musculoskeletal: Positive for arthralgias and back pain. Negative for joint swelling, myalgias and neck pain. Skin: Negative. Neurological: Negative. Physical Examination: Vitals: Visit Vitals BP (!) 126/48 (BP Location: Left arm, Patient Position: Lying) Pulse 88 Temp 36.7 ??C (98 ??F) (Temporal) Resp 12 Physical Exam Vitals reviewed. Constitutional: General: She is in acute distress. Appearance: Normal appearance. HENT: Head: Normocephalic and atraumatic. Eyes: General: No scleral icterus. Cardiovascular: Rate and Rhythm: Normal rate and regular rhythm. Heart sounds: No murmur heard. No friction rub. No gallop. Pulmonary: Effort: Pulmonary effort is normal. No respiratory distress. Breath sounds: Normal breath sounds. No stridor. No wheezing, rhonchi or rales. Chest: Chest wall: No tenderness. Abdominal: General: Abdomen is flat. Bowel sounds are normal. There is no distension. Palpations: Abdomen is soft. There is no mass. Tenderness: There is no abdominal tenderness. There is no right CVA tenderness, left CVA tenderness, guarding or rebound. Hernia: No hernia is present. Musculoskeletal: Right lower leg: No edema. Left lower leg: No edema. Skin: General: Skin is warm and dry. Findings: No rash. Neurological: Mental Status: She is alert. Objective Recent Lab Results: Lab Results Component Value Date WBC 17.6 (H) 09/21/2024 RBC 3.40 (L) 09/21/2024 HGB 7.6 (L) 09/21/2024 HCT 25.0 (L) 09/21/2024 MCV 73.3 (L) 09/21/2024 MCHC 30.4 (L) 09/21/2024 RDW 21.3 (H) 09/21/2024 PLT 584 (H) 09/21/2024 MPV 9.4 09/21/2024 NRBC 0.0 09/21/2024 DIFF Lab Results Component Value Date LYMPHOPCT 7.3 09/21/2024 NEUTROABS 15.41 (H) 09/21/2024 LYMPHSABS 1.29 09/21/2024 MONOABS 0.81 09/21/2024 EOSABS 0.00 09/21/2024 BASOSABS 0.02 09/21/2024 IMMGRANABS 0.11 (H) 09/21/2024 RETIC No results found for: RETIC , RETICCTPCT Lab Results Component Value Date BLOODCX No growth at 24 hours 09/19/2024 BLOODCX No growth at 24 hours 09/19/2024 URINECX No growth 07/20/2024 Recent Results (from the past 168 hour(s)) Respiratory virus panel molecular study Collection Time: 09/17/24 4:06 PM Specimen: Nares; Swab Result Value Ref Range Adenovirus Detection by PCR Not Detected Not Detected Influenza A PCR Not Detected Not Detected Influenza B PCR Not Detected Not Detected Coronavirus 229E Not Detected Not Detected Coronavirus HKU1 Not Detected Not Detected Coronavirus OC43 Not Detected Not Detected Coronavirus NL63 Not Detected Not Detected Parainfluenza Virus 1 Not Detected Not Detected Parainfluenza Virus 2 Not Detected Not Detected Parainfluenza Virus 3 Not Detected Not Detected Parainfluenza Virus 4 Not Detected Not Detected RSV PCR Not Detected Not Detected Human Metapneumovirus A and B Not Detected Not Detected Rhinovirus/Enterovirus Not Detected Not Detected Bordetella pertussis Not Detected Not Detected Bordetella parapertussis Not Detected Not Detected Mycoplasma pneumo by PCR Not Detected Not Detected Chlamydia pneumoniae Not Detected Not Detected SARS COV-2 Not Detected Not Detected Blood culture Collection Time: 09/17/24 4:35 PM Specimen: Blood Result Value Ref Range Culture, Blood Staphylococcus aureus (AA) Gram Stain Result Aerobic and Anaerobic bottles Gram positive cocci (AA) Blood culture Collection Time: 09/17/24 4:35 PM Specimen: Blood, Venous Result Value Ref Range Culture, Blood Methicillin-Sensitive Staphylococcus aureus (AA) Gram Stain Result Aerobic and Anaerobic bottles Gram positive cocci (AA) Susceptibility Methicillin-Sensitive Staphylococcus aureus - SANDRA Benzylpenicillin Resistant ug/ml Oxacillin Susceptible ug/ml Gentamicin Susceptible ug/ml Ciprofloxacin Susceptible ug/ml Levofloxacin Susceptible ug/ml Moxifloxacin Susceptible ug/ml Erythromycin Resistant ug/ml Clindamycin Resistant ug/ml Quinupristin/Dalfopristin Susceptible ug/ml Linezolid Susceptible ug/ml Vancomycin Susceptible ug/ml Tetracycline Susceptible ug/ml Rifampin Susceptible ug/ml Trimethoprim/Sulfamethoxazole Susceptible ug/ml Blood culture pathogens molecular study Collection Time: 09/17/24 4:35 PM Specimen: Blood, Venous Result Value Ref Range Staphylococcus aureus Detected (A) Not Detected Culture blood Collection Time: 09/18/24 9:31 AM Specimen: Blood, Venous Result Value Ref Range Culture, Blood Methicillin-Sensitive Staphylococcus aureus (AA) Gram Stain Result Aerobic bottle Gram positive cocci in clusters (AA) Culture body fluid with gram stain Collection Time: 09/18/24 11:40 AM Specimen: Shoulder, Right; Synovial Fluid Result Value Ref Range Fluid Culture Methicillin-Sensitive Staphylococcus aureus (A) Gram Stain Result Many Polymorphonuclear leukocytes (A) Gram Stain Result Few Gram positive cocci in clusters (A) Gram Stain Result No epithelial cells seen (A) Susceptibility Methicillin-Sensitive Staphylococcus aureus - SANDRA Benzylpenicillin Resistant ug/ml Oxacillin Susceptible ug/ml Gentamicin Susceptible ug/ml Ciprofloxacin Susceptible ug/ml Levofloxacin Susceptible ug/ml Moxifloxacin Susceptible ug/ml Erythromycin Resistant ug/ml Clindamycin Resistant ug/ml Quinupristin/Dalfopristin Susceptible ug/ml Linezolid Susceptible ug/ml Vancomycin Susceptible ug/ml Tetracycline Susceptible ug/ml Rifampin Susceptible ug/ml Trimethoprim/Sulfamethoxazole Susceptible ug/ml Culture blood Collection Time: 09/18/24 5:59 PM Specimen: Blood, Venous Result Value Ref Range Culture, Blood No growth at 2 days Culture body fluid with gram stain Collection Time: 09/19/24 10:31 AM Specimen: Shoulder, Right; Synovial Fluid Result Value Ref Range Fluid Culture Methicillin-Sensitive Staphylococcus aureus (A) Gram Stain Result No epithelial cells seen (A) Gram Stain Result Many Polymorphonuclear leukocytes (A) Gram Stain Result Few Gram positive cocci in clusters (A) Susceptibility Methicillin-Sensitive Staphylococcus aureus - SANDRA Benzylpenicillin Resistant ug/ml Oxacillin Susceptible ug/ml Gentamicin Susceptible ug/ml Ciprofloxacin Susceptible ug/ml Levofloxacin Susceptible ug/ml Moxifloxacin Susceptible ug/ml Erythromycin Resistant ug/ml Clindamycin Resistant ug/ml Quinupristin/Dalfopristin Susceptible ug/ml Linezolid Susceptible ug/ml Vancomycin Susceptible ug/ml Tetracycline Susceptible ug/ml Rifampin Susceptible ug/ml Trimethoprim/Sulfamethoxazole Susceptible ug/ml Culture blood Collection Time: 09/19/24 4:29 PM Specimen: Blood, Venous Result Value Ref Range Culture, Blood No growth at 24 hours Culture blood Collection Time: 09/19/24 4:34 PM Specimen: Bone Marrow Aspirate; Blood Result Value Ref Range Culture, Blood No growth at 24 hours Recent Imaging Findings: MR Thoracic Spine wo Contrast Result Date: 09/21/2024 Narrative: PROCEDURE: Noncontrast MRI of the thoracic spine. HISTORY: Back trauma, no prior imaging(Age >= 16y) Bacteremia. COMPARISON: CT chest abdomen and pelvis 09/18/2024. TECHNIQUE: Multiplanar multisequence MRI of the thoracic spine without intravenous contrast administration. FINDINGS: Limited study secondary to patient motion. Mild cardiomegaly. Moderate right and small left pleural effusions. Mildly exaggerated thoracic kyphosis. Degenerative changes of the lumbar spine and a lumbar levoscoliosis with superior L3 and inferior L1 endplate fractures. There is also mild superior endplate deformity at T5. Total spine T2 fat-saturated images were performed and there is no marrow edema associated with any of these fractures, suggesting that they are chronic. There is trace fluid signal in the L2-3 intervertebral disc space suspected to be degenerative; no convincing evidence of discitis/osteomyelitis. No significant spinal stenosis. The neural foramina not well evaluated due tomotion and scoliosis. Normal position of the conus at approximately L1. Assessment of the cord is limited by motion but there is no visible cord signal abnormality. No visible epidural fluid collection. Impression: 1. No convincing evidence of discitis/osteomyelitis. 2. Chronic endplate fracture deformities at T5, L1, and L3. Exaggerated thoracic kyphosis. 3. Bilateral pleural effusions. -------- FINAL REPORT -------- Dictated By: Gabriel Arguelles Dictated Date: 09/21/2024 08:27 ET Assigned Physician: Gabriel Arguelles Reviewed and Electronically Signed By: Gabriel Arguelles Signed Date: 09/21/2024 08:47 ET Workstation ID: [id number] Transcribed By: Self Edit Transcribed Date: 09/21/2024 08:27 ET US Asp Abscess/Hematoma/Bulla/Cyst Result Date: 09/19/2024 Narrative: INDICATION: Right shoulder effusion TECHNIQUE: Written informed [...] Signed Date: 09/19/2024 14:55 ET Workstation ID: [id number] By: Self Edit Transcribed Date: 09/18/2024 13:09 ET Resident/PA/[employer] PROFESSOR: Rosaura Quintanilla Transthoracic echocardiogram (TTE) complete with PRN contrast, bubble, strain, and 3D order panel Result Date: 09/18/2024 Narrative: Left ventricle cavity size is normal. Left ventricle wall thickness is normal.Severe LV global hypokinesis is present.Left ventricular systolic function is severely decreased with an ejection fraction of 25-30%.. Definity contrast is used to delineate endocardial borders.The base of the left ventricle still's appears to have decent contractility. Its mainly the mid to apex of the left ventricle is hypokinetic. This could be a Takotsubo cardiomyopathic process Right ventricle cavity is normal. Right ventricular systolic function is normal. Tricuspid Valve: Estimated RA pressure is 8mmHg. The RVSP is estimated at 53 mmHg. Aortic Valve: There is moderate regurgitation. Mild to moderate mitral insufficiency is also documented. CT Chest/Abdomen/Pelvis w Contrast Result Date: 09/18/2024 Narrative: CT chest, abdomen, and pelvis, 09/18/2024. HISTORY: Bacteremia. COMPARISON: CT chest 06/26/2024. TECHNIQUE: Contrast-enhanced CT of the chest, abdomen, and pelvis with coronal and sagittal reformats. IV contrast dose: 75 mL [id number]. Dose length product: 461 mGy-cm. FINDINGS: Lungs/pleura: Airways are normal in caliber. Moderate right and small left pleural effusions with associated compressive atelectasis. The right effusion extends into the major fissure. Thin linear markings in the upper lobes represent scarring and/or atelectasis. Mediastinum/viola: No mass or adenopathy. Thoracic vasculature: Extensive atherosclerotic calcifications of the aorta and great vessels. Pulmonary arteries are normal in caliber. No central pulmonary embolism. Cardiac: Mild cardiomegaly. Extensivecoronary artery calcifications. Chest wall: Moderate anasarca. Mildly prominent supraclavicular andaxillary nodes. The largest measures just under 1 cm in short axis and is located in the left axilla . These are suspected to be reactive. Liver: No focal lesion. Portal veins are patent. Biliary: Normal gallbladder and biliary tree. Pancreas: Normal. Spleen: Normal. Adrenal glands: Normal. Kidneys:Normal appearance of the kidneys. There is a small amount of excreted contrast in the proximal collecting systems which could potentially represent very small calculi. There is no visible collecting s ystem calculus. Retroperitoneum: No mass or adenopathy. Abdominal vasculature: Extensive atherosclerotic calcifications. Bowel/mesentery: No obstruction or adenopathy. No mass or ascites. Abdominal wall: Moderate anasarca. Pelvic nodes: The pelvis is partially obscured by streak artifact. No visible adenopathy. Pelvic organs: The urinary bladder is distended with excreted intravenous contrast. Mild mural trabeculation. Streak artifact partially obscures the pelvis. Uterus is not seen and suspected to be absent. Neither ovary visible. Bones: Again demonstrated is a multilobulated right glenohumeral joint effusion with significant bony remodeling, possibly erosion, of the humeral head and to a lesser degree the glenoid. There is thick irregular synovial enhancement. The findings correlate with a provided history of septic arthritis. There are prominent degenerative changes of the left glenohumeral joint. Bilateral hip arthroplasties. Partially visible side plate and fixation screw hardware in the proximal left femur. Diffuse degenerative changes of the spine. Age indeterminate superior L3 and inferior L1 endplate fracture deformities/large Schmorl's nodes. Impression: 1. Again noted is a large multilobulated right glenohumeral joint effusion with irregular synovial enhancement. There is prominent bony irregularity of the humeral head and less prominentirregularity of the glenoid. The findings correlate with the provided history of a septic joint, with the bony findings raising the possibility of osteomyelitis. 2. Moderate right and small left pleural effusions. Anasarca. 3. Age-indeterminate endplate fractures at L1 and L3. -------- FINAL REPORT-------- Dictated By: Gabriel Arguelles Dictated Date: 09/18/2024 11:43 ET Assigned Physician: Gabriel Arguelles Reviewed and Electronically Signed By: Gabriel Arguelles Signed Date: 09/18/2024 11:58 ET Workstation ID: [id number] Transcribed By: Self Edit Transcribed Date: 09/18/2024 11:52 ET XR Chest 1 View Result Date: 09/18/2024 Narrative: AP view of the chest, 09/18/2024. HISTORY: Cough, new onset. COMPARISON: 08/13/2024. FINDINGS: The patient's head obscures the left apex. Slight blunting of the costophrenic angles suggesting thickening or trace pleural fluid. Linear markings in the upper lung zones appear slightly improved compared with the previous study. Atherosclerotic calcifications of the aorta. Deformity of both humeral heads, right greater than left. Generalized osteopenia. Impression: Slightly improved aeration of the upper lungs. Small bilateral pleural effusions or pleural thickening. -------- FINAL REPORT -------- Dictated By: Gabriel Arguelles Dictated Date: 09/18/2024 08:23 ET Assigned Physician: Gabriel Arguelles Reviewed and Electronically Signed By: Gabriel Arguelles Signed Date: 09/18/2024 08:25 ET Workstation ID: [id number] Transcribed By: Self Edit Transcribed Date: 09/18/2024 08:[address] Upper Extremity w Contrast Right Result Date: 09/17/2024 Narrative: Exam: Contrast-enhanced CT of the right shoulder, with multiplanar reformats. Comparison: None. Findings: There is marked deformity of the humeral head with multifocal erosions, as well aschronic erosion of the inferior acromial surface and [...] Visualized lungs reveal right upper lobe atelectasis orscarring. No focal consolidation. There is a small right pleural effusion. Impression: Impression: 1. Large multiloculated glenohumeral joint effusion, compatible with likelylongstanding nonspecific synovitis. Septic arthritis can not be excluded. Consider joint aspiration. 2. Chronic appearing changes involving the proximal humerus, glenoid, scapula, as well as distal clavicle. However, given this scenario, the possibility of osteomyelitis can not be excluded. This document has been electronically signed by: Tom Peña MD on 09/17/2024 21:34:39 Assessment/Plan: Louann Barrientos is a 74 y.o. female who has a past medical history of Raynaud disease, Rheumatoid arthritis ([facility]), and Sicca ([facility]).. The patient was admitted to the hospital on 09/17/2024 for right shoulder pain. The patient is extremely poor historian so history is taken with the help of chart review. It appears that the patient has been having shoulder pain for a while, she is unable to tell anyone for how long CT of the upper extremity showed a large multiloculated joint effusion of theright shoulder glenohumeral joint. The patient's blood cultures been positive for MSSA. She was started on vancomycin and ceftriaxone. She was seen by orthopedic surgery who recommended IR guided aspiration of the shoulder. The patient is also complaining of pain in her lower back as well as pain in her shoulder. She is unable to tell me anything else.. The ID service has been consulted for management during this patient's hospital stay. 1. MSSA bacteremia associated with suspected right shoulder septic arthritis, status post washout postop day 2 Remains on cefazolin, blood cultures appear to have cleared as of 48 hours await blood Shoulder aspirate growing MSSA also The patient has been having back pain, refused MRI with contrast was unable to tolerate and startedcrying, order changed MRI thoracic without contrast, no obvious signs of infection seen, she has old L1 and L3 fractures Recommend switching MRI to CT scan of thoracic and lumbar spines with without contrast to evaluate for any fluid collection, if negative Then can go home on IV cefazolin for 4 weeks TTE unremarkable, cleared blood cultures early within 72 hours Recommendations: 1. I switched the patient to cefazolin 2 g every 8 2. Since the patient is unable to tolerate MRI, please get CT of thoracic and lumbar spine with without contrast to rule out any infection, if these come back negative then can be discharged on IV cefazolin 2 g every 8 to end on 10/16, please check weekly CBC and BMP and fax to my office at [phone] Isolation: none I personally spent 35 minutes in this encounter. This included performing a detailed chart review, reviewing and independently interpreting labs ordered by other providers, performing a history and physical, counseling this patient/family, discussing the case with the primary team , coordinating his /her/their plan of care and performing complex medical decision making. Please note that this note has been completed with the help of voice recognition dictation software, as such there may be certain words that may be substituted or written in error error based on the voice-recognition tool, please contact me to clarify if any confusion * Clover Rausch RN - 09/21/2024 3:05 PM EST CM 09/21 MINERVA: 09/22-09/23 Barrier: runs SVT 190, CRP 15.6. final cult pend, OM R shoulder, washout 09/19 Dispo: from [facility]- Bed hold * JAKE Pyle - 09/21/2024 12:57 PM EST Louann Barrientos 09/17/[birth year]24 1950 74 y.o. [id number] Bernardo Alcantara MD SUBJECTIVE : Reporting inability to move her right shoulder. No fever, night sweats, chills. OBJECTIVE: Visit Vitals BP (!) 126/48 (BP Location: Left arm, Patient Position: Lying) Pulse 88 Temp 36.7 ??C (98 ??F) (Temporal) Resp 12 Temp (24hrs), Av.6 ??C (97.8 ??F), Min:36.1 ??C (97 ??F), Max:36.8 ??C (98.2 ??F) Body mass index is 19.02 kg/m??. No results found for: PTWT , PTHT Intake/Output Summary (Last 24 hours) at 09/21/2024 1258 Last data filed at 09/21/2024 1257 Gross per 24 hour Intake 20 ml Output 1 ml Net 19 ml Wt Readings from Last 1 Encounters: 09/21/24 0500 45.6 kg (100 lb 9.6 oz) 09/19/24 1756 45.8 kg (101 lb) 09/18/24 1358 46.2 kg (101 lb 13.6 oz) 09/17/24 1553 46.3 kg (102 lb) PHYSICAL EXAM: GEN: More alert, mildly confused. No distress. HEENT: Atraumatic, symmetric, PERRLA. Neck: Supple, nontender, no range of motion limitation. Lungs: Clear, no accessory muscle use. Heart: Regular, no murmur. Abdomen: Not distended, soft, nontender. Bowel sounds present. MSK: Right shoulder with bandage. Neuro: Awake, mildly confused. Follows commands. Inability to move right upper extremity. Psych: Calm. RESULTS: CBC BMP Results from last 7 days Lab Units 09/21/24 0622 09/20/24 0838 09/19/24 0808 09/18/24 0813 09/17/24 1833 WBC AUTO K/mcL 17.6* 28.2* 26.0* 23.3* 19.8* HEMOGLOBIN g/dL 7.6* 8.8* 9.1* 9.4* 9.0* HEMATOCRIT % 25.0* 29.5* 29.8* 30.0* 28.8* PLATELETS K/mcL 584* 611* 552* 403* 500* LYMPHS PCT AUTO % 7.3 5.3 3.6 -- 5.3 MONO PCT AUTO % 4.6 3.5 4.4 -- 4.4 EOS PCT AUTO % 0.0 0.0 0.1 -- 0.2 Results from last 7 days Lab Units 09/21/24 0622 09/20/24 0543 09/19/24 0546 09/18/24 0813 SODIUM mmol/L 140 137 137 133 POTASSIUM mmol/L 3.8 4.3 3.9 3.8 CHLORIDE mmol/L 104 105 102 101 CO2 mmol/L 25 22 23 22 ANION GAP 11 10 12* 10 BUN mg/dL 16 21 12 7 CREATININE mg/dL 0.20* 0.25* <0.15* 0.23* CALCIUM mg/dL 8.0* 8.1* 7.9* 8.0* MAGNESIUM mg/dL -- -- 1.8* -- Results from last 7 days Lab Units 09/21/24 1220 09/21/24 0917 09/21/24 0622 09/20/24 0801 09/20/24 0543 POCT GLUCOSE mg/dL 88 73 -- 99 -- GLUCOSE mg/dL -- -- 69* -- 88 Results from last 7 days Lab Units 09/19/24 0546 09/17/24 1833 AST unit/L 27 9* ALT unit/L <6* <6* Imaging: Scheduled Medications PRN Medications IV Medications acetaminophen, 1,000 mg, q8h CELESTINO ascorbic acid, 500 mg, Daily atorvastatin, 80 mg, Daily ceFAZolin, 2 g, q8h dapagliflozin propanediol, 10 mg, Daily furosemide, 20 mg, Daily heparin (porcine), 5,000 Units, q8h CELESTINO magnesium sulfate, 2 g, Once metoprolol tartrate, 25 mg, BID sertraline, 25 mg, Daily spironolactone, 25 mg, Daily clonazePAM, 0.5 mg, TID PRN dextrose 50%, 12.5 g, q15 min PRN dextrose 50%, 25 g, q15 min PRN dextrose, 15 g, q15 min PRN dextrose, 30 g, q15 min PRN glucagon injection, 1 mg, Once PRN haloperidol, 4 mg, Once PRN HYDROmorphone, 0.25 mg, q2h PRN metoprolol tartrate, 5 mg, q6h PRN oxyCODONE, 2.5 mg, q3h PRN oxyCODONE, 5 mg, q3h PRN ASSESSMENT/PLAN: Right shoulder septic arthritis r/o 74-year-old female with PMH of rheumatoid arthritis, HFrEF, Sjogren's syndrome, chronic anemia, Raynaud's syndrome and anxiety who [facility] ED from [facility] for right shoulder pain with leukocytosis. On presentation, she was tachycardic 111. PDE 5 1.16. The rest of vital sign was stable. CBC showedleukocytosis 19.8. CT of right shoulder showed large multiloculated glenohumeral joint effusion, signs of possible osteomyelitis. Patient was started on antibiotics. status post right shoulder arthroscopic irrigation and debridement on September 19. Today, vital signs stable. Patient reporting inability to move the right upper extremity. Tissue culture showing: MSSA White count 17.6 from 28.2. On cefazolin. Seen by Ortho. Made Ortho team aware regarding right upper extremity limited active mobility. Appreciate input. Bacteremia Severe sepsis Blood cultures from September 17, 2024: Staph aureus. Patient met SIRS criteria with fever, tachycardia, leukocytosis. TTE done on September 18: EF 35-30, no sign of vegetation. No fever overnight. Unable to obtain spine MRI despite sedation. This morning vital signs stable. Improving white count 17.6. Blood culture from September 18: Staph. Blood cultures from September 19: Negative . ID on board: CT spine recommended as patient is unable to tolerate MRI with contrast. Appreciate input. Continue with cefazolin. Chronic systolic CHF EF 30-35% On Farxiga, spironolactone, furosemide, metoprolol. Hyperlipidemia On statin. Hypokalemia Corrected. Pressure wounds sacral location. Wound care consulted. CODE STATUS Full DVT prophylaxis Heparin. Family notification Updated patient's son on September 20. Case discussed with Dr Alcantara Disclaimer: Speech recognition software was utilized to dictate portions of this document. Errors in county engineer may be present. Please call / cortext me if any questions. Portions of this note such ROS, Exam, Assessment and Plan were copy pasted from previous notes. Information was reviewed and changes were made accordingly. I agree with above mentioned information Associated attestation - Bernardo Alcantara MD - 09/21/2024 2:31 PM EST Patient was seen and examined. Agree with the general content of the note above unless stated otherwise. I conducted an independent review of the medical chart and formulated the care plan in its entirety. Orthopedic surgery and infectious disease following Repeat blood cultures from 09/19 remain negative Case discussed with nursing and ICC * JAKE Aguilar - 09/21/2024 12:12 PM EST Orthopedic Trauma Progress Note CHIEF COMPLAINT Right shoulder septic arthritis SURGERY Arthroscopic I+D right shoulder on 09-19-[address] Mcdowell SUBJECTIVE Overnight: No overnight events reported. Patient states she is generally doing well. States that the pain is well-controlled. OBJECTIVE Vitals: 09/21/24 0951 BP: (!) 141/51 Pulse: 100 Resp: Temp: SpO2: General: Alert and cooperative, lying comfortably in bed, in no acute distress, easily distracted HEENT: Normocephalic and atraumatic Pulmonary: No increased work of breathing appreciated and able to speak in full sentences Musculoskeletal: Right upper extremity- dressing about shoulder is clean/dry/intact, RA deformitiesnoted through hand, no swelling/ecchymosis/erythema/wound appreciated particularly about the shoulder, wiggles all fingers, unable to actively range shoulder, but allow passive ROM. sensation intact along radian/median/ulnar distributions, appears well-perfused Skin: Generally normal tone, dry, warm Lab Results Component Value Date WBC 17.6 (H) 09/21/2024 HGB 7.6 (L) 09/21/2024 HCT 25.0 (L) 09/21/2024 PLT 584 (H) 09/21/2024 Lab Results Component Value Date NA 140 09/21/2024 K 3.8 09/21/2024 CL 104 09/21/2024 BUN 16 09/21/2024 CREATININE 0.20 (L) 09/21/2024 GLUCOSE 73 09/21/2024 CALCIUM 8.0 (L) 09/21/2024 Lab Results Component Value Date SEDRATE 121 (H) 09/20/2024 CRP 15.60 (H) 09/20/2024 No results found for: HGBA1C Lab Results Component Value Date PT 12.3 08/09/2024 APTT 28.2 08/09/2024 ASSESSMENT/PLAN Patient is postop day 2 status post arthroscopic I+D right shoulder by Dr. Mcdowell. Patient is stable. - Weightbearing: Continue gentle weightbearing as tolerated on affected extremity - Activity: Encourage out of bed with fall risk protocol; continue gentle activity as tolerated right upper extremity - Therapy: Continue PT/OT - Pain control: Continue current regimen - Dressing/wound care/DME: Dressing should remain clean and dry; nursing may reinforce as needed - Misc: Continue IS; appreciate medical team management of comorbidities - Labs: Follow up intraoperative cultures - ABX: Continue IV ABX, appreciate ID input - DVT prophylaxis: Pneumatic compression stockings; per primary team - Dispo: Anticipate discharge to rehab when medically appropriate Above discussed with and agreed to by JAKE Judge-C * Haley Elmo, PT - 09/20/2024 1:51 PM EST [facility] Physical Therapy Evaluation & Treatment PT Discharge Recommendations: [facility] facility placement Staff Recommendations for safe patient handlin person assist for all mobility Precautions Medical Precautions: Fall Risk Safety Interventions: Call neal within reach, ID band on, Bed alarm RUE Weight Bearing Status: (P) Partial LUE Weight Bearing Status: Full RLE Weight Bearing Status: Full LLE Weight Bearing Status: Full Fall prevention education provided including use of call light in hospital, use of appropriate assistive device, safe mobility techniques, and safety measures at home. PT Received On: 09/20/24 PT Start Time: 1030 PT Stop Time: 1100 PT Time Calculation (min): 30 min Precautions Medical Precautions: Fall Risk Safety Interventions: Call neal within reach, ID band on, Bed alarm RUE Weight Bearing Status: As Tolerated LUE Weight Bearing Status: Full RLE Weight Bearing Status: Full LLE Weight Bearing Status: Full Cognition Overall Cognitive Status: Impaired Arousal/Alertness: Inconsistent responses to stimuli Orientation Level: Oriented X4 Following Commands: Unable to follow commands Safety Judgment: Decreased awareness of need for assistance Hearing: Intact Vision: Impaired Speech: impaired pt crying and yelling and difficult to understand as she was not actually crying Integumentary: wound unstagable on sacrum History of Present Illness: Patient is a 74 y.o. female admitted to [facility] on 09/17/2024. 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 ([facility]) Past Medical History: Diagnosis Date Raynaud disease DX:Raynaud disease Rheumatoid arthritis (CMS/HCC) DX:Rheumatoid arthritis (HCC) Sicca (CMS/HCC) DX:Sicca (HCC) Past Surgical History: Procedure Laterality Date LEG SURGERY Left 11/16/2022 PROCEDURE:LEG SURGERY;COMMENT:Procedure: I&D LEFT LOWER EXTREMITY; Surgeon: Robbie Villagran MD;Location: [facility] MAIN OPERATING ROOM; Service: Orthopedic Trauma; Laterality: Left; OTHER SURGICAL HISTORY Left 10/16/2022 PROCEDURE:ORIF FEMORAL SHAFT FRACTURE W/ PLATES AND SCREWS;COMMENT:Procedure: REPAIR NONUNION LEFT FEMUR/ORIF LEFT FEMUR; Surgeon: Robbie Villagran MD; Location: [facility] MAIN [facility]PERATING ROOM; Service: Orthopedic Trauma; Laterality: Left; TOTAL HIP ARTHROPLASTY Right PROCEDURE:TOTAL HIP ARTHROPLASTY Social History Home Living Environment: Home Living Type of Home: Condo Lives With: Alone Home Adaptive Equipment: Walker - rolling Home Layout: One level Home Access: Level entry Prior Function Level of [place]: Independent with mobility and functional transfers Ambulation Status: Household ambulator Receives Help From: Family, Friends Indoor Mobility Assistance: Independent Stairs Assistance : Independent Prior Device Use: Walker Which is your dominant hand?: Right General Assessment 09/20/24 1030 PT Last Visit PT Received On 09/20/24 PT Time Calculation PT Start Time 1030 PT Stop Time 1100 PT Time Calculation (min) 30 min Precautions Medical Precautions Fall Risk Safety Interventions Call neal within reach;ID band on;Bed alarm RUE Weight Bearing Status Partial LUE Weight Bearing Status Full RLE Weight Bearing Status Full LLE Weight Bearing Status Full Oxygen Therapy Oxygen Therapy None (Room air) Pain Assessment Pain Assessment No/denies pain Pain Score 0 - No pain Cognition Overall Cognitive Status Impaired Arousal/Alertness Inconsistent responses to stimuli Orientation Level Unable to assess Following Commands Unable to follow commands Safety Judgment Decreased awareness of need for assistance Home Living Type of Home Subacute rehab Prior Function Level of [place] Needs assistance with functional transfers Ambulation Status Household wheelchair use Receives Help From Other (Comment) (staff) Indoor Mobility Assistance Dependent Stairs Assistance Not Applicable Prior Device Use No prior device use Activity Tolerance Endurance Tolerates less than 10 min exercise, no significant change in vital signs Sensation Light Touch Severe deficits in the RLE;Severe deficits in the LLE (very sensitive to touch and yelling out with any mvmt ROM or repositioning) Static Sitting Balance Static Sitting-Level of Assistance Maximum assistance Static Standing Balance Static Standing-Level of Assistance Dependent Bed Mobility Rolling Left and Right Assistance Dependent Rolling Left and Right Deficit Steadying;Verbal cueing;Supervision/safety awareness Lying to Sitting Assistance Dependent;Assist x2 Bed Mobility Comments Pt was unable to activly particpate in her care. She kept crying out althoughnot really crying and stating things she wanted but was not able to support her comments. Transfers Sit to Stand Assistance Dependent;Assist x2 Sit to Stand Deficit Steadying;Verbal cueing;Supervision/safety awareness;Increased time to complete;Assist for foot placement;Assist for lift off;Assist for trunk control Transfer Comments pt was ref to stand without her shoes but they were not here and she was not herefor anything involoving BLE but she would and had great difficulty moving her BLE and stated she could no olonger straignten then and screaming at me when i attempted gentle stretching RUE Assessment RUE Assessment Impaired RUE Assessment Comments unabel to elevate arm for more than a second off her lap 2-/5 LUE Assessment LUE Assessment Impaired LUE Assessment Comments unABLE TO ELAVTE ARM OFF HER LAP FOR MORE THAN A SECOND 2-/5 RLE Assessment RLE Assessment Impaired RLE Assessment Comments knee ext -10 2-/5 LLE Assessment LLE Assessment Impaired LLE Assessment Comments knne ext -10 2-/5 PT Assessment PT Assessment Results Decreased strength;Decreased endurance;Decreased range of motion;Impaired balance;Impaired gait;Decreased mobility;Decreased coordination;Decreased cognition;Impaired judgement;Decreased safety awareness Prognosis Poor Evaluation/Treatment Tolerance Patient limited by pain Comments Pt was unable to activly particpate in her care. She was yelling out commands and crying but when we tried to do these they were dont correctly and she was unabel to elaborate at all becauseshe was crying and yelling in pain and frustration. Medical Staff Made Aware Yes Plan Treatment/Interventions Functional transfer training;LE strengthening/ROM;Gait training;Bed mobility PT Plan Skilled PT PT Frequency 2-5 days per week PT Duration of Sessions 15-30 min per session PT Treatments per day 1 time per day PT Discharge Recommendations [facility] facility placement PT - Evaluation Status Complete PT - OK to Discharge Yes PT Evaluation Time Entry PT Evaluation (Moderate) Time Entry 30 Treatment performed during evaluation: None performed ADDITIONAL COMMENTS: Chart reviewed. RN clears pt for session. Pt agrees to participate and presented in bed upon PT arrival. All lines in place. Gait belt utilized throughout treatment to maximize safety. Medical precautions observed appropriately. Initiated education on the importance of PT, bed mobility safety, Transfer Safety, Ambulation Safety , Therapy Plan of Care, Home Safety, Energy Conservations strategies, and importance of OOB activity . Pt verbalized understanding. EXIT STATUS: Session ended with patient in bed, tray table and call light within reach, and RN made aware. Physical Therapy Assessment/Plan Louann Barrientos is a 74 y.o. female admitted to [facility] on 09/17/2024 for Septic arthritis([facility]) [M00.9] 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 ([facility]) [M00.811] . Pt presents with decreased BLE strength, balance deficits, decreased activity tolerance, and far below functional baseline. Pt performed bed mobility Dependent, Bedrail, HOB elevated, and Therapist assist, Transfers with Dependent and x2, None . Pt will benefit from skilled acute PT during hospital stay to improve the deficits listed above and optimize function. PT recommends [facility] facility placement when medically stable for safe discharge and to optimize functional mobility and independence. Goals Encounter Problems Encounter Problems (Active) Template: Physical Therapy Problem: PT Short Term Goals Dates: Start: 09/20/24 Goal: PT STG 1 Dates: Start: 09/20/24 Goal: PT STG 2 Dates: Start: 09/20/24 Encounter Problems (Resolved) There are no resolved problems. Education Documentation Home Exercise Program, taught by Haley Borrego PT at 09/20/2024 1:49 PM. Learner: Patient Readiness: Nonacceptance Method: Explanation, Demonstration, Cognitively Impaired Response: Cognitively Impaired, Needs Reinforcement Comment: Pt is allowed to gently WB through her R UE but at EOB she would not and was unable to puthands beside and use them to mobilize self at all. Pt choice as well and limited by weakness Mobility Training, taught by Haley Borrego PT at 09/20/2024 1:49 PM. Learner: Patient Readiness: Nonacceptance Method: Explanation, Demonstration, Cognitively Impaired Response: Cognitively Impaired, Needs Reinforcement Comment: Pt is allowed to gently WB through her R UE but at EOB she would not and was unable to puthands beside and use them to mobilize self at all. Pt choice as well and limited by weakness Education Comments No comments found. Haley Borrego PT * JAKE Pyle - 09/20/2024 1:08 PM EST Louann Barrientos 09/17/2024 1950 74 y.o. [id number] Bernardo Alcantara MD SUBJECTIVE : No shoulder pain. OBJECTIVE: Visit Vitals BP 133/50 (BP Location: Left arm, Patient Position: Lying) Pulse 100 Temp 36.3 ??C (97.4 ??F) (Tympanic) Resp 12 Temp (24hrs), Av.4 ??C (97.6 ??F), Min:36 ??C (96.8 ??F), Max:36.8 ??C (98.2 ??F) Body mass index is 19.09 kg/m??. No results found for: PTWT , PTHT Intake/Output Summary (Last 24 hours) at 09/20/2024 1309 Last data filed at 09/20/2024 0300 Gross per 24 hour Intake 50 ml Output -- Net 50 ml Wt Readings from Last 1 Encounters: 09/19/24 1756 45.8 kg (101 lb) 09/18/24 1358 46.2 kg (101 lb 13.6 oz) 09/17/24 1553 46.3 kg (102 lb) PHYSICAL EXAM: GEN: Awake, confused. No distress. HEENT: Atraumatic, symmetric, PERRLA. Neck: Supple, nontender, no range of motion limitation. Lungs: Clear, no accessory muscle use. Heart: Regular, no murmur. Abdomen: Not distended, soft, nontender. Bowel sounds present. MSK: Right shoulder with bandage. Neuro: Awake, confused. Follows commands. Able to move all 4 extremities. Psych: Calm. RESULTS: CBC BMP Results from last 7 days Lab Units 09/20/24 0838 09/19/24 0808 09/18/24 0813 09/17/24 1833 WBC AUTO K/mcL 28.2* 26.0* 23.3* 19.8* HEMOGLOBIN g/dL 8.8* 9.1* 9.4* 9.0* HEMATOCRIT % 29.5* 29.8* 30.0* 28.8* PLATELETS K/mcL 611* 552* 403* 500* LYMPHS PCT AUTO % 5.3 3.6 -- 5.3 MONO PCT AUTO % 3.5 4.4 -- 4.4 EOS PCT AUTO % 0.0 0.1 -- 0.2 Results from last 7 days Lab Units 09/20/24 0543 09/19/24 0546 09/18/24 0813 09/17/24 1833 SODIUM mmol/L 137 137 133 131* POTASSIUM mmol/L 4.3 3.9 3.8 3.4* CHLORIDE mmol/L 105 102 101 97 CO2 mmol/L 22 23 22 26 ANION GAP 10 12* 10 8 BUN mg/dL 21 12 7 9 CREATININE mg/dL 0.25* <0.15* 0.23* 0.18* CALCIUM mg/dL 8.1* 7.9* 8.0* 7.9* MAGNESIUM mg/dL -- 1.8* -- -- Results from last 7 days Lab Units 09/20/24 0801 09/20/24 0543 09/19/24 2348 09/19/24 1646 09/19/24 1613 POCT GLUCOSE mg/dL 99 -- 110* 98 107* GLUCOSE mg/dL -- 88 -- -- -- Results from last 7 days Lab Units 09/19/24 0546 09/17/24 1833 AST unit/L 27 9* ALT unit/L <6* <6* Imaging: Scheduled Medications PRN Medications IV Medications acetaminophen, 1,000 mg, q8h CELESTINO ascorbic acid, 500 mg, Daily atorvastatin, 80 mg, Daily ceFAZolin, 2 g, q8h dapagliflozin propanediol, 10 mg, Daily furosemide, 20 mg, Daily haloperidol, 3 mg, Once heparin (porcine), 5,000 Units, q8h CELESTINO magnesium sulfate, 2 g, Once metoprolol tartrate, 25 mg, BID sertraline, 25 mg, Daily spironolactone, 25 mg, Daily clonazePAM, 0.5 mg, TID PRN dextrose 50%, 12.5 g, q15 min PRN dextrose 50%, 25 g, q15 min PRN dextrose, 15 g, q15 min PRN dextrose, 30 g, q15 min PRN glucagon injection, 1 mg, Once PRN HYDROmorphone, 0.25 mg, q2h PRN metoprolol tartrate, 5 mg, q6h PRN oxyCODONE, 2.5 mg, q3h PRN oxyCODONE, 5 mg, q3h PRN ASSESSMENT/PLAN: Right shoulder septic arthritis r/o 74-year-old female with PMH of rheumatoid arthritis, HFrEF, Sjogren's syndrome, chronic anemia, Raynaud's syndrome and anxiety who presented to the ED from SNF for right shoulder pain with leukocytosis. On presentation, she was tachycardic 111. PDE 5 1.16. The rest of vital sign was stable. CBC showedleukocytosis 19.8. CT of right shoulder showed large multiloculated glenohumeral joint effusion, signs of possible osteomyelitis. Patient was started on antibiotics. status post right shoulder arthroscopic irrigation and debridement on September 19. Today, vital signs stable. Patient denying right shoulder pain. Tissue culture showing smoking few staph. White count 28.2 from 26.0. On cefazolin. ID on board. Appreciate input. Bacteremia Severe sepsis Blood cultures from September 17, 2024: Staph aureus. Patient met SIRS criteria with fever, tachycardia, leukocytosis. TTE done on September 18: EF 35-30, no sign of vegetation. No fever overnight. This morning vital signs stable. White count 28.2 from 26.0. Blood culture from September 18: Staph. Blood culture ordered. Continue with cefazolin. Chronic systolic CHF EF 30-35% On Farxiga, spironolactone, furosemide, metoprolol. Hyperlipidemia On statin. Hypokalemia Corrected. Pressure wounds sacral location. Wound care consulted. CODE STATUS Full DVT prophylaxis Heparin. Family notification Updated patient's son. Case discussed with Dr Alcantara Disclaimer: Speech recognition software was utilized to dictate portions of this document. Errors in county engineer may be present. Please call / cortext me if any questions. Portions of this note such ROS, Exam, Assessment and Plan were copy pasted from previous notes. Information was reviewed and changes were made accordingly. I agree with above mentioned information Associated attestation - Bernardo Alcantara MD - 09/21/2024 8:18 AM EST Patient was seen and examined. Agree with the general content of the note above unless stated otherwise. I conducted an independent review of the medical chart and formulated the care plan in its entirety. Continue IV cefazolin for MSSA bacteremia. TTE performed does not show any obvious vegetation Case discussed with nursing and ICC * Norah Maya, OT - 09/20/2024 11:00 AM EST [facility] Occupational Therapy Evaluation DATE: September TIME IN: 1100 TIME OUT: 1145 Pt: Louann Barrientos ROOM: [address] [place] [address] Discharge Recommendation: [facility] facility Equipment Recommendation: walker Staff recommendations for safe patient handling: bed level Assessment: Patient is a 74 y.o. y.o. female presenting for OT evaluation following admission due to septic arthritis R shoulder d/t bacteria. During today's skilled acute care OT evaluation, pt demonstrated the following deficits: decreased endurance/strength, decreased ADLs, decreased sitting mary nce, decreased standing balance, decreased txfers, decreased fxnl mobility . Pt currently requires assistance for ADLs and physical assistance for functional transfers/mobility. Pt will continue to benefit from skilled acute care OT services to facilitate improvements in the areas of deficit listedabove and to progress toward their PLOF with ADLs and IADLs. OT Time Calculation OT Start Time: 1100 OT Stop Time: 1145 OT Time Calculation (min): 45 min History of Present Illness: Patient is a 74 y.o. female admitted to [facility] on 09/17/2024. Occupational Therapy evaluation and treatment ordered to assess ADL independence, safety, and functional mobility for discharge planning. Patient Active Problem List Diagnosis NSTEMI (non-ST elevated myocardial infarction) ([facility]) HFrEF (heart failure with reduced ejection fraction) ([facility]) Septic arthritis ([facility]) 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 ([facility]) Past Medical History: Diagnosis Date Raynaud disease DX:Raynaud disease Rheumatoid arthritis ([facility]) DX:Rheumatoid arthritis (HCC) Sicca ([facility]) DX:Sicca ([facility]) Past Surgical History: Procedure Laterality Date LEG SURGERY Left 11/16/2022 PROCEDURE:LEG SURGERY;COMMENT:Procedure: I&D LEFT LOWER EXTREMITY; Surgeon: Robbie Villagran MD;Location: [facility] MAIN OPERATING ROOM; Service: Orthopedic Trauma; Laterality: Left; OTHER SURGICAL HISTORY Left 10/16/2022 PROCEDURE:ORIF FEMORAL SHAFT FRACTURE W/ PLATES AND SCREWS;COMMENT:Procedure: REPAIR NONUNION LEFT FEMUR/ORIF LEFT FEMUR; Surgeon: Robbie Villagran MD; Location: [facility] MAIN OPERATING ROOM; Service: Orthopedic Trauma; Laterality: Left; TOTAL HIP ARTHROPLASTY Right PROCEDURE:TOTAL HIP ARTHROPLASTY Subjective Patient alert and agreeable to engage in OT evaluation and treatment. Objective Patient was identified by name and x2. Hearing: Intact Speech: Intact Vision: Vision: Impaired 09/20/24 1227 OT Last Visit OT Received On 09/20/24 General Family/Caregiver Present No OT Time Calculation OT Start Time 1100 OT Stop Time 1145 OT Time Calculation (min) 45 min Precautions Medical Precautions Fall Risk Safety Interventions Call neal within reach;ID band on;Bed alarm RUE Weight Bearing Status As Tolerated LUE Weight Bearing Status Full RLE Weight Bearing Status Full LLE Weight Bearing Status Full Pain Assessment Pain Assessment 0-10 Pain Score 9 Pain Type Surgical pain Pain Location Shoulder Pain Orientation Right Home Living Type of Home Condo Lives With Alone Home Adaptive Equipment Walker - rolling Home Layout One level Home Access Level entry Prior Function Level of [place] Independent with mobility and functional transfers Ambulation Status Household ambulator Receives Help From Family;Friends Indoor Mobility Assistance Independent Stairs Assistance Independent Prior Device Use Walker ADL/IADL History ADL Assistance (Self Care) Independent ADL Eating Assistance Dependent (1:1) Grooming Assistance Dependent Oral Hygiene Assistance Dependent Bathing Assistance Dependent (bed level) UE Dressing Assistance Maximum assistance LE Dressing Assistance Dependent;Assist x2 (assistance with all tasks bed level) Footwear Assistance Dependent (assistance with all tasks) Toileting Assistance Dependent;Assist x2 (bed level) Bed Mobility Rolling Left and Right Assistance Dependent Lying to Sitting Assistance Maximum assistance Functional Transfers Sit to Stand Assistance Assist x2;Dependent Chair/Bed to Chair/Bed Assistance Not attempted, medical/safety concerns (unsafe) Toilet Transfer Assistance Not attempted, medical/safety concerns (unsafe) Cognition Overall Cognitive Status Impaired Sensation Light Touch No apparent deficits Hand Function Gross Grasp Impaired Coordination Coordination Impaired RUE Assessment RUE Assessment Impaired RUE Assessment Additional (decreased ROM, motor speed and coordination) LUE Assessment LUE Assessment Impaired LUE Assessment Additional (decreased ROM, motor speed and coordination) RLE Assessment RLE Assessment Impaired LLE Assessment LLE Assessment Impaired OT Assessment OT Assessment Results Decreased ADL status;Decreased upper extremity range of motion;Decreased upper extremity strength;Decreased cognition;Decreased endurance;Decreased fine motor control;Decreased functional mobility;Decreased gross motor control Prognosis Fair Evaluation/Treatment Tolerance Patient limited by pain Plan Treatment Interventions ADL retraining;Functional transfer training;UE strengthening/ROM;Endurance training OT - Evaluation Status Complete OT Discharge Recommendations [facility] facility placement (d/c to next level of care) Equipment Recommended Walker-rolling OT Evaluation Time Entry OT Evaluation (Moderate) Time Entry 45 Pt completed bed mobility with max assist for trunk support and lifting jim Les to EOB. Pt educatedon importance of completing OOB tasks in order to increase tolerance and functional levels. Pt sat EOB for approx 15 minutes with min assist for more than steadying assist. Pt required max verbal cues for redirection to task. Pt completed sit to stand x3 trials x2 persons. Pt able to stand for approx 5 seconds each time. Pt completed EOB to supine with total assist. Pt repositioned for comfort. Open area noticed on buttocks. Nurse in room and made aware. Call neal left within reach. Bed alarm activated. ADDITIONAL COMMENTS: Chart reviewed. RN clears pt for session. Pt agrees to participate and received supine with HOB elevated. All lines in place. No family or guests present during session. Medical precautions observed appropriately. Initiated education on Role of OT and ADL Techniques and Safety . Pt needs reinforcement for carry over. EXIT STATUS: Session ended with patient supine with HOB elevated. Needs in reach. RN made aware. OT Goals Pt seen for OT eval and treatment session to assess ADL and functional status. See above for details of evaluation/treatment session. OT Assessment OT Assessment Results: Decreased ADL status, Decreased upper extremity range of motion, Decreased upper extremity strength, Decreased cognition, Decreased endurance, Decreased fine motor control, Decreased functional mobility, Decreased gross motor control Prognosis: Fair Evaluation/Treatment Tolerance: Patient limited by pain Plan Treatment Interventions: ADL retraining, Functional transfer training, UE strengthening/ROM, Endurance training OT - Evaluation Status: Complete OT Discharge Recommendations: [facility] facility placement (d/c to next level of care) Equipment Recommended: Walker-rolling Encounter Problems Encounter Problems (Active) There are no active problems. Encounter Problems (Resolved) There are no resolved problems. Norah Maya OT * JAKE Edwards - 09/20/2024 8:18 AM EST Orthopedic Trauma Progress Note CHIEF COMPLAINT Right shoulder septic arthritis SURGERY Arthroscopic I+D right shoulder on 09-19-[address] Mcdowell SUBJECTIVE Overnight: No overnight events reported. Patient states she is generally doing well. States that the pain is well- controlled. Reports that she is thirsty. Patient denies numbness and paresthesias. OBJECTIVE Vitals: 09/20/24 0800 BP: (!) 119/43 Pulse: 100 Resp: 18 Temp: 36.7 ??C (98.1 ??F) SpO2: 99% General: Alert and cooperative, lying comfortably in bed, in no acute distress, easily distracted HEENT: Normocephalic and atraumatic Pulmonary: No increased work of breathing appreciated and able to speak in full sentences Musculoskeletal: Right upper extremity- dressing about shoulder is clean/dry/intact, multiple deformities of the hand appreciated consistent with RA, no swelling/ecchymosis/erythema/wound appreciatedparticularly about the shoulder, wiggles all fingers, unable to actively range shoulder, sensation i ntact along radian/median/ulnar distributions, appears well-perfused Skin: Generally normal tone, dry, warm Lab Results Component Value Date WBC 26.0 (H) 09/19/2024 HGB 9.1 (L) 09/19/2024 HCT 29.8 (L) 09/19/2024 PLT 552 (H) 09/19/2024 Lab Results Component Value Date NA 137 09/20/2024 K 4.3 09/20/2024 CL 105 09/20/2024 BUN 21 09/20/2024 CREATININE 0.25 (L) 09/20/2024 GLUCOSE 99 09/20/2024 CALCIUM 8.1 (L) 09/20/2024 Lab Results Component Value Date SEDRATE 125 (H) 09/17/2024 CRP 15.60 (H) 09/20/2024 No results found for: HGBA1C Lab Results Component Value Date PT 12.3 08/09/2024 APTT 28.2 08/09/2024 ASSESSMENT/PLAN Patient is postop day 1 status post arthroscopic I+D right shoulder by Dr. Mcdowell. Patient is stable. - Weightbearing: Continue gentle weightbearing as tolerated on affected extremity - Activity: Encourage out of bed with fall risk protocol; continue gentle activity as tolerated right upper extremity - Therapy: Continue PT/OT - Pain control: Continue current regimen - Dressing/wound care/DME: Dressing should remain clean and dry; nursing may reinforce as needed - Misc: Continue IS; appreciate medical team management of comorbidities - Labs: Follow up intraoperative cultures - ABX: Continue IV ABX, appreciate ID input - DVT prophylaxis: Pneumatic compression stockings; per primary team - Dispo: Anticipate discharge to rehab when medically appropriate Above discussed with and agreed to by JAKE Delaney-C * Ruth Mars RN - 09/19/2024 2:50 PM EST 09/19/24 1447 Initial Transition Plan Initial Transition Plan (Pt is from [facility]) Discharge Planning Living Arrangements Other (Comment) Type of Residence Other (Comment) (Pt comes from [facility]) Assistive Devices Walker;Wheelchair Support Systems Children;Friends;Home care staff Anticipated Discharge Needs Discipline following for SNF placement Senior Marketing Specialist [facility] spoke with pt's son John. John reported pt comes from [facility] and has been in and outof rehab facilities recently. John reported he received a phone call from [facility] requestingpayment to keep her bed. John requested to get a medical update from the provider and also reported he would like to speak with his mother regarding this. [facility] notified provider of request from [facility] for an update. * JAKE Pyle - 09/19/2024 1:46 PM EST Louann Barrientos 09/17/[birth year]24 1950 74 y.o. [id number] Bernardo Alcantara MD SUBJECTIVE : Patient seen after the OR. OBJECTIVE: Visit Vitals BP (!) 103/43 (BP Location: Left arm, Patient Position: Lying) Pulse 66 Temp 36.1 ??C (97 ??F) (Temporal) Resp 12 Temp (24hrs), Av.4 ??C (97.6 ??F), Min:36.1 ??C (97 ??F), Max:37.2 ??C (98.9 ??F) Body mass index is 19.25 kg/m??. No results found for: PTWT , PTHT Intake/Output Summary (Last 24 hours) at 09/19/2024 1346 Last data filed at 09/19/2024 1106 Gross per 24 hour Intake 400 ml Output 20 ml Net 380 ml Wt Readings from Last 1 Encounters: 09/18/24 1358 46.2 kg (101 lb 13.6 oz) 09/17/24 1553 46.3 kg (102 lb) PHYSICAL EXAM: GEN: Sleeping. No distress. HEENT: Atraumatic, symmetric, PERRLA. Neck: Supple, nontender, no range of motion limitation. Lungs: Clear, no accessory muscle use. Heart: Regular, no murmur. Abdomen: Not distended, soft, nontender. Bowel sounds present. MSK: Right shoulder with bandage. Neuro: Sleeping. Psych: Calm. RESULTS: CBC BMP Results from last 7 days Lab Units 09/19/24 0808 09/18/24 0813 09/17/24 1833 WBC AUTO K/mcL 26.0* 23.3* 19.8* HEMOGLOBIN g/dL 9.1* 9.4* 9.0* HEMATOCRIT % 29.8* 30.0* 28.8* PLATELETS K/mcL 552* 403* 500* LYMPHS PCT AUTO % 3.6 -- 5.3 MONO PCT AUTO % 4.4 -- 4.4 EOS PCT AUTO % 0.1 -- 0.2 Results from last 7 days Lab Units 09/19/24 0546 09/18/24 0813 09/17/24 1833 SODIUM mmol/L 137 133 131* POTASSIUM mmol/L 3.9 3.8 3.4* CHLORIDE mmol/L 102 101 97 CO2 mmol/L 23 22 26 ANION GAP 12* 10 8 BUN mg/dL 12 7 9 CREATININE mg/dL <0.15* 0.23* 0.18* CALCIUM mg/dL 7.9* 8.0* 7.9* MAGNESIUM mg/dL 1.8* -- -- Results from last 7 days Lab Units 09/19/24 1251 09/19/24 0748 09/19/24 0546 09/18/24 0813 09/17/24 1833 POCT GLUCOSE mg/dL 76 81 -- -- -- GLUCOSE mg/dL -- -- 64* 71 81 Results from last 7 days Lab Units 09/19/24 0546 09/17/24 1833 AST unit/L 27 9* ALT unit/L <6* <6* Imaging: Scheduled Medications PRN Medications IV Medications acetaminophen, 1,000 mg, q8h CELESTINO ascorbic acid, 500 mg, Daily atorvastatin, 80 mg, Daily ceFAZolin, 2 g, q8h dapagliflozin propanediol, 10 mg, Daily furosemide, 20 mg, Daily heparin (porcine), 5,000 Units, q8h CELESTINO magnesium sulfate, 2 g, Once magnesium sulfate, 2 g, Once metoprolol tartrate, 25 mg, BID sertraline, 25 mg, Daily spironolactone, 25 mg, Daily clonazePAM, 0.5 mg, TID PRN dextrose 50%, 12.5 g, q15 min PRN dextrose 50%, 25 g, q15 min PRN dextrose, 15 g, q15 min PRN dextrose, 30 g, q15 min PRN glucagon injection, 1 mg, Once PRN HYDROmorphone, 0.25 mg, q2h PRN metoprolol tartrate, 5 mg, q6h PRN oxyCODONE, 2.5 mg, q3h PRN oxyCODONE, 5 mg, q3h PRN ASSESSMENT/PLAN: Right shoulder septic arthritis r/o 74-year-old female with PMH of rheumatoid arthritis, HFrEF, Sjogren's syndrome, chronic anemia, Raynaud's syndrome and anxiety who presented to the ED from [facility] for right shoulder pain with leukocytosis. On presentation, she was tachycardic 111. PDE 5 1.16. The rest of vital sign was stable. CBC showedleukocytosis 19.8. CT of right shoulder showed large multiloculated glenohumeral joint effusion, signs of possible osteomyelitis. Patient was started on antibiotics. Patient was not able to tolerate MRI. This morning, vital signs stable. White count 26.0 from 23.3. Seen by Ortho and underwent right shoulder arthroscopic irrigation and debridement. Cultures pending. Appreciate management. Continue with cefazolin. Bacteremia Severe sepsis Blood cultures from September 17, 2024: Staph aureus. Patient met SIRS criteria with fever, tachycardia, leukocytosis. No fever overnight. This morning vital signs stable. White count 26.0 from 23.3. Blood culture from September 18: Staph. Blood culture ordered. Pending TTE. Continue with cefazolin. Chronic systolic CHF EF 30-35% On Farxiga, spironolactone, furosemide, metoprolol. Hyperlipidemia On statin. Hypokalemia Corrected. CODE STATUS Full DVT prophylaxis Heparin. Family notification Attempted to update patient's son numerous times without success. Voicemail left. Case discussed with Dr Alcantara Disclaimer: Speech recognition software was utilized to dictate portions of this document. Errors in county engineer may be present. Please call / cortext me if any questions. Portions of this note such ROS, Exam, Assessment and Plan were copy pasted from previous notes. Information was reviewed and changes were made accordingly. I agree with above mentioned information Associated attestation - Bernardo Alcantara MD - 09/20/2024 10:41 AM EST Patient was seen and examined. Agree with the general content of the note above unless stated otherwise. I conducted an independent review of the medical chart and formulated the care plan in its entirety. Status post intervention by orthopedic surgery Continue IV cefazolin for MSSA bacteremia Remains critically ill Case discussed with nursing and ICC * Henri Mcdowell MD - 09/19/2024 9:12 AM EST Orthopedic attending progress note 19 September 2024 CC: Right shoulder septic arthritis HPI: 74-year-old [id number] female R. A. 09/17/2024 admitted to [facility] for right shoulder pain Imaging study significant right shoulder multiloculated joint effusion Bacteremia positive MSSA 09/18/2024 IR consultation aspiration 09/18/2024 ID consultation initiation of antibiotics 09/18/2024 orthopedic consultation for surgical irrigation debridement Plan: Right shoulder irrigation debridement HUNTER Mcdowell MD * Mary Constantino RD - 09/19/2024 7:59 AM EST 09/19/2024 @ 6:03 PM EST Nutrition Initial Assessment Reason for RD Intervention: Assessment Type: Nutrition Trigger Reason for Assessment: Wound Anthropometrics: Height: 154.9 cm (60.98 ) Weight: 45.8 kg (101 lb) (per EPIC record) Weight Method: Estimated BMI (Calculated): 19.1 BMI Class: Normal UBW (lbs): (08/14/24 weight listed at 47.7 kg) Current Diet and Supplements: Dietary Orders (From admission, onward) Start Ordered 09/19/24 0757 Adult diet [facility]; General, Fluid Restriction, Cardiac; Regular; Fluid Restriction 1500 mL; Sodium 2 gm Restriction Diet effective now Question Answer Comment Location [facility] Diet Type (req) General Diet Type (req) Fluid Restriction Diet Type (req) Cardiac General Diet Regular Fluid Restrictions Fluid Restriction 1500 mL Diet Type (cardiac) Sodium 2 gm Restriction 09/19/24 0757 History of presenting illness: Patient is a 74 y.o. female with a history of Past Medical History: Diagnosis Date Raynaud disease DX:Raynaud disease Rheumatoid arthritis (CMS/HCC) DX:Rheumatoid arthritis (HCC) Sicca (CMS/HCC) DX:Sicca (HCC) Past Surgical History: Procedure Laterality Date LEG SURGERY Left 11/16/2022 PROCEDURE:LEG SURGERY;COMMENT:Procedure: I&D LEFT LOWER EXTREMITY; Surgeon: Robbie Villagran MD;Location: [facility] MAIN OPERATING ROOM; Service: Orthopedic Trauma; Laterality: Left; OTHER SURGICAL HISTORY Left 10/16/2022 PROCEDURE:ORIF FEMORAL SHAFT FRACTURE W/ PLATES AND SCREWS;COMMENT:Procedure: REPAIR NONUNION LEFT FEMUR/ORIF LEFT FEMUR; Surgeon: Robbie Villagran MD; Location: [facility] MAIN [facility]PERATING ROOM; Service: Orthopedic Trauma; Laterality: Left; TOTAL HIP ARTHROPLASTY Right PROCEDURE:TOTAL HIP ARTHROPLASTY admitted 09/17/2024 with Septic arthritis (CMS/HCC). Food/Nutrition History: Self-selected diet(s) followed: Pt sleeping soundly this morning on attempted interview and again this evening. Pt had irrigation and debridement of shoulder today, diet resumed but pt appears too sleepy to consume dinner. Appetite ABLE BODIED TANKERMAN: Other (Comment) (limited data) Weight History: Wt Readings from Last 10 Encounters: 09/19/24 45.8 kg (101 lb) 08/14/24 47.7 kg (105 lb 3.2 oz) Subjective Assessment: Pt presents with septic arthritis, status post irrigation and debridement. Diet resumed. Has previously reported to this chief writer that she has burning mouth syndrome and cautions about oral intake. Nutrition-Related Lab Values: Results from last 7 days Lab Units 09/19/24 1646 09/19/24 1251 09/19/24 0808 09/19/24 0748 09/19/24 0546 09/18/24 0813 SODIUM mmol/L -- -- -- -- 137 133 POTASSIUM mmol/L -- -- -- -- 3.9 3.8 MAGNESIUM mg/dL -- -- -- -- 1.8* -- CHLORIDE mmol/L -- -- -- -- 102 101 CO2 mmol/L -- -- -- -- 23 22 BUN mg/dL -- -- -- -- 12 7 CREATININE mg/dL -- -- -- -- <0.15* 0.23* EGFR mL/min/1.73m2 -- -- -- -- -- 117 CALCIUM mg/dL -- -- -- -- 7.9* 8.0* BILIRUBIN TOTAL mg/dL -- -- -- -- 0.3 -- ALK PHOS unit/L -- -- -- -- 100 -- ALT unit/L -- -- -- -- <6* -- AST unit/L -- -- -- -- 27 -- POCT GLUCOSE mg/dL 98 < > -- < > -- -- GLUCOSE mg/dL -- -- -- -- 64* 71 WBC AUTO K/mcL -- -- 26.0* -- -- 23.3* < > = values in this interval not displayed. No results found for: LIPASE Medications: acetaminophen, 1,000 mg, oral, q8h CELESTINO ascorbic acid, 500 mg, oral, Daily atorvastatin, 80 mg, oral, Daily ceFAZolin, 2 g, intravenous, q8h dapagliflozin propanediol, 10 mg, oral, Daily furosemide, 20 mg, oral, Daily heparin (porcine), 5,000 Units, subcutaneous, q8h CELESTINO magnesium sulfate, 2 g, intravenous, Once metoprolol tartrate, 25 mg, oral, BID sertraline, 25 mg, oral, Daily spironolactone, 25 mg, oral, Daily CONTINUOUS: PRN medications: clonazePAM, dextrose 50%, dextrose 50%, dextrose, dextrose, glucagon injection, HYDROmorphone, metoprolol tartrate, oxyCODONE, oxyCODONE Energy Needs: kcal, gm protein, mL fluid per day. Total Energy Estimated Needs: 30-35 kcal/kg/day for wounds, 8405-8378 kcal/day. 1.2 up to 1.5 gm/kg/day, 55-69 gm/day, fluid 25-30 ml/kg/day, 3232-4114 ml /day Height: 154.9 cm (60.98 ) Temp: 36.3 ??C (97.3 ??F) Food/Nutrition-Current Status: Intake Type: P.O. Current Diet Status: Appropriate Current Supplement Status: Other (Comment) (Not ordered, Pt known to this chief writer has declined supplements at times in the past.) Nutrition Focused Physical Findings: Overall Appearance: pt sleeping soundly. BM 09/16/24, sacral stage 2, dermatitis under breasts, pressure injury to toe, unstaegeable Nerves and Cognition: Lethargic, Other (Comment) (after debridement of shoulder today) Nutrition Diagnosis: Code Type: None Identified (at risk , Nutrition focused physical exam on folllow up) Diagnosis: Increased Nutrient Needs Etiology: Increased demand for nutrient (calories and protein) Symptoms: as evidenced by sacral stage 2 , shoulder wound Nutrition Interventions: Medical Food Supplement, Vitamin/Mineral Supplement Medical Food Supplement(s): Other (Comment) (offer when pt alert, in the past pt has declined both supplements and micronutrients) Goals: Patient will initially consume at least 50% of meals. , Maintain weight., and Wound healing progress. Monitoring/Evaluation: Fluid/Beverage Intake, Food Intake, Weight, Gastrointestinal Profile, Other (Comment) (skin healing) Follow Up: Nutrition Priority Level: Moderate Please consult nutrition if needed sooner. RD remains available and will continue to follow. Signature: Mary Constantino RD * Adrienne Multani RN - 09/19/2024 4:30 AM EST Goals: Patient will be able to have adequate po intake. Identify possible barriers to meeting goals/advancing plan of care: Refusal of food and fluids and medications at times, needs lots of encouragement, weakness in hands and arms to feed or take a drink. Stability of the patient: Moderately Stable - Low risk of patient condition declining or worsening End of Shift Summary: * Sean Huerta RN - 09/18/2024 8:00 PM EST Per wound nurse recommendation, intradry to be applied underneath patient's breasts and PUPP boots to be placed on patients feet. Patient refused both of these and this RN explained in detail the importance of them, but the patient still refused. Patient stated that she was in pain and when this RN attempted to give her oxycodone 5 mg, the patient refused the medication. Patient went for MRI and was given IV Lorazepam down in the MRI suite, but MRI was unable to be performed due to patient movement. Both providers Dr. Alcantara, and Madelin Samayoa messaged about the abortedMRI. * JAKE Pyle - 09/18/2024 3:26 PM EST Louann Barrientos 09/17/2024 1950 74 y.o. [id number] Bernardo Alcantara MD SUBJECTIVE : Confused patient. OBJECTIVE: Visit Vitals BP 95/62 Pulse 100 Temp (!) 38.8 ??C (101.8 ??F) (Tympanic) Resp 24 Temp (24hrs), Av.8 ??C (100 ??F), Min:37 ??C (98.6 ??F), Max:38.8 ??C (101.8 ??F) Body mass index is 19.25 kg/m??. No results found for: PTWT , PTHT Intake/Output Summary (Last 24 hours) at 09/18/2024 1526 Last data filed at 09/18/2024 0904 Gross per 24 hour Intake 370 ml Output -- Net 370 ml Wt Readings from Last 1 Encounters: 09/18/24 1358 46.2 kg (101 lb 13.6 oz) 09/17/24 1553 46.3 kg (102 lb) PHYSICAL EXAM: GEN: Awake, confused. No distress. HEENT: Atraumatic, symmetric, PERRLA. Neck: Supple, nontender, no range of motion limitation. Lungs: Clear, no accessory muscle use. Heart: Regular, no murmur. Abdomen: Not distended, soft, nontender. Bowel sounds present. Neuro: Awake, confused. Follows commands. Able to move all 4 extremities. Psych: Calm. RESULTS: CBC BMP Results from last 7 days Lab Units 09/18/24 0813 09/17/24 1833 WBC AUTO K/mcL 23.3* 19.8* HEMOGLOBIN g/dL 9.4* 9.0* HEMATOCRIT % 30.0* 28.8* PLATELETS K/mcL 403* 500* LYMPHS PCT AUTO % -- 5.3 MONO PCT AUTO % -- 4.4 EOS PCT AUTO % -- 0.2 Results from last 7 days Lab Units 09/18/24 0813 09/17/24 1833 SODIUM mmol/L 133 131* POTASSIUM mmol/L 3.8 3.4* CHLORIDE mmol/L 101 97 CO2 mmol/L 22 26 ANION GAP 10 8 BUN mg/dL 7 9 CREATININE mg/dL 0.23* 0.18* CALCIUM mg/dL 8.0* 7.9* Results from last 7 days Lab Units 09/18/24 0813 09/17/24 1833 GLUCOSE mg/dL 71 81 Results from last 7 days Lab Units 09/17/24 1833 AST unit/L 9* ALT unit/L <6* Imaging: Scheduled Medications PRN Medications IV Medications ascorbic acid, 500 mg, Daily atorvastatin, 80 mg, Daily ceFAZolin, 2 g, q8h dapagliflozin propanediol, 10 mg, Daily furosemide, 20 mg, Daily magnesium sulfate, 2 g, Once metoprolol tartrate, 25 mg, BID sertraline, 25 mg, Daily spironolactone, 25 mg, Daily acetaminophen, 650 mg, q6h PRN clonazePAM, 0.5 mg, TID PRN metoprolol tartrate, 5 mg, q6h PRN oxyCODONE, 5 mg, q6h PRN ASSESSMENT/PLAN: Right shoulder septic arthritis r/o 74-year-old female with PMH of rheumatoid arthritis, HFrEF, Sjogren's syndrome, chronic anemia, Raynaud's syndrome and anxiety who presented to the ED from [facility] for right shoulder pain with leukocytosis. On presentation, she was tachycardic 111. PDE 5 1.16. The rest of vital sign was stable. CBC showedleukocytosis 19.8. CT of right shoulder showed large multiloculated glenohumeral joint effusion, signs of possible osteomyelitis. Patient was started on antibiotics. This morning, vital signs stable. Status post joint aspiration by IR, pending fluid culture and analysis. Pending shoulder MRI. Continue with antibiotics. Bacteremia Severe sepsis Blood cultures from September 17, 2024: Staph aureus. Patient met SIRS criteria with fever, tachycardia, leukocytosis. This morning, temperature hide 38.8, heart rate high 144. White count 23.3 from 19.58 Patient seen by ID: [id number], CT chest angio, spine MRI ordered. Vancomycin and cefepime switched to cefazolin. Appreciate input. Continue with daily blood cultures until clear, antibiotics. Chronic systolic CHF EF 30-35% On Farxiga, spironolactone, furosemide, metoprolol. Hyperlipidemia On statin. Hypokalemia Potassium 3.8 from 3.4. CODE STATUS Full DVT prophylaxis Heparin. Case discussed with Dr Alcantara Disclaimer: Speech recognition software was utilized to dictate portions of this document. Errors in county engineer may be present. Please call / cortext me if any questions. Portions of this note such ROS, Exam, Assessment and Plan were copy pasted from previous notes. Information was reviewed and changes were made accordingly. I agree with above mentioned information Associated attestation - Bernardo Alcantara MD - 09/19/2024 8:00 AM EST Patient was seen and examined. Agree with the general content of the note above unless stated otherwise. I conducted an independent review of the medical chart and formulated the care plan in its entirety. Patient has severe sepsis in the setting of MSSA bacteremia and likely septic arthritis of the right shoulder Orthopedic surgery and ID following-appreciate recommendations Patient has severe anxiety. Started on clonazepam Case discussed with nursing and ICC * Julita Hogan RN - 09/18/2024 11:36 AM EST Images from the original note were not included. Wound Care Initial Consult Visit Date: 09/18/2024 Patient Name: Louann Barrientos Date of : 1950 Reason for Consult: Wound RN Consult received to assess sacral area and recommend topical treatmentand ensure pressure prevention care plan in place. Patient Active Problem List Diagnosis Date Noted Date Diagnosed Septic arthritis ([facility]) 09/17/2024 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 ([facility]) 09/17/2024 HFrEF (heart failure with reduced ejection fraction) ([facility]) 08/11/2024 NSTEMI (non-ST elevated myocardial infarction) ([facility]) 08/09/2024 Wound History: Nutritional Status: Patient is thin and cachectic with bony prominences. Pertinent Labs: Albumin Date Value Ref Range Status 09/17/2024 1.9 (L) 3.2 - 5.0 g/dL Final WBC Date Value Ref Range Status 09/18/2024 23.3 (H) 4.8 - 10.8 K/mcL Final WBC, Urine Date Value Ref Range Status 07/20/2024 12.2 (H) 0 - 4 /HPF Final Wound Assessment: Wound Skin Tear 08/10/24 Elbow Anterior;Left;Lower;Proximal (Active) Wound Pressure Injury 08/10/24 Sacrum (Active) Wound Image 09/18/24 1100 Wound Bed Tissue Assessment Red;White 09/18/24 1100 Selena-Wound Assessment Erythematous 09/18/24 1100 Wound Length (cm) 6 cm 09/18/24 1100 Wound Width (cm) 4 cm 09/18/24 1100 Wound Surface Area (cm^2) 24 cm^2 09/18/24 1100 Wound Depth (cm) 0.1 cm 09/18/24 1100 Wound Volume (cm^3) 2.4 cm^3 09/18/24 1100 Wound Healing % -6757 09/18/24 1100 Drainage Description Serosanguineous 09/18/24 1100 Drainage Amount Small 09/18/24 1100 Treatments Cleansed 09/18/24 1100 Dressing Other (Comment);Foam 09/18/24 1100 Dressing Changed New 09/18/24 1100 Dressing Status Other (Comment) 09/18/24 0815 Pressure Injury Stage 2 09/18/24 1100 Wound Moisture Associated Dermatitis 09/18/24 Breast Left;Lower (Active) Wound Bed Tissue Assessment Red 09/18/24 0815 Selena-Wound Assessment [place] 09/18/24 0328 Dressing Status Other (Comment) 09/18/24 0328 Wound Moisture Associated Dermatitis 09/18/24 Breast Lower;Right (Active) Wound Image 09/18/24 1059 Wound Bed Tissue Assessment Red;Excoriated 09/18/24 0815 Selena-Wound Assessment [place] 09/18/24 0329 Dressing Status Other (Comment) 09/18/24 0329 Wound Pressure Injury 09/18/24 Toe D2, Second Anterior;Right (Active) Wound Image 09/18/24 1051 Wound Bed Tissue Assessment Dry;[place] 09/18/24 0815 Selena-Wound Assessment Dry 09/18/24 0330 Wound Length (cm) 0.5 cm 09/18/24 1051 Wound Width (cm) 0.5 cm 09/18/24 1051 Wound Surface Area (cm^2) 0.25 cm^2 09/18/24 1051 Wound Depth (cm) 0.1 cm 09/18/24 1051 Wound Volume (cm^3) 0.025 cm^3 09/18/24 1051 Dressing Betadine 09/18/24 1051 Dressing Status Other (Comment) 09/18/24 0330 Pressure Injury Stage U 09/18/24 1051 Support Surface: Patient was on Hill Rom bed and requested Isotour or Snow bed. Patients' Teo scale score is 12 and at high risk. Waffle boots were applied and heels were red and partially slowly blanchable. Continue to assist with turning and repositioning. Recommending LEAF monitoring system. Wound Summary Assessment: Sacral area with 9 small wounds each 1 cm or less, measured area as totalarea. Wounds are stage 2 and two of them down to deepest dermal layer with white base. Sacral area is prominent and at risk. Lt 2nd toe with small dry wound possibly related to pressure as toes with severe deformity r/t arthritis. Bilateral breast with intertriginous dermatitis with fungal evolvement. Wound Plan: Sacrum recommended Triad, allevyn- QOD. Bilateral breast antifungal ointment and interdry ag- daily. Left 2nd toe betadine paint, heel offolading with boots. Low air loss bed. 09/18/2024 11:36 AM EST * Julita Hogan RN - 09/18/2024 11:34 AM EST Problem: Skin Integrity: Pressure Injury Actual or Risk of Goal: Skin integrity will improve Outcome: Not Progressing Goal: Risk for impaired skin integrity will decrease Outcome: Not Progressing Problem: Activity:Pressure Injury Actual or Risk of Goal: Mobility will improve Outcome: Not Progressing Problem: Nutritional:Pressure Injury Actual or Risk of Goal: Nutritional status will improve Outcome: Not Progressing Problem: Patient Specific Problem: Pressure Injury Actual or Risk of Goal: Patient Specific Outcome Outcome: Not Progressing Goals: Patient will not develop new pressure injury and demonstrate improvement in POA pressure injuries. * Daniela Allen RN - 09/18/2024 3:41 AM EST Goals: pt will cooperate in care Identify possible barriers to meeting goals/advancing plan of care: IV abx, non compliance with medications Stability of the patient: Moderately Unstable - Medium risk of patient condition declining or worsening End of Shift Summary: Nurse note written, awaiting plan in the morning. * Daniela Allen RN - 09/18/2024 3:30 AM EST Pt comes in from facility and was brought to the 5th floor for admission, upon arriving to the floor pt was screaming, did not want to be on the fifth floor. Staff called family and updated them of situation and asked for insight, family was thanked and after 20 min pt was agreeable to go into the room. Pt yells out for staff, does not press her call light for assistance. She does utilize the bedpan for voiding, cannot remember last BM. Pt refused to have a pad on the bed stating it will hurt my skin . This chief writer sat with patient for 30 min and educated her on her ordered medications and antibiotics, as well as the possible side effects, pt refused all medications. This chief writer explained to the patient the significance of the antibiotics because of her elevated WBC and her infection and reminded her the infection could get worse without her antibiotics to which she replied I know, I will take them tomorrow . Pt made aware that this chief writer notified provider regarding refusal to whichpatient stated can't you just put that I am just pushing it until later? Pt educated on medication routine. CXR performed at bedside, pt c/o pain when moved. MRI ordered but pt refused to answer screening questions and stated if they ask me in the morning they are getting the same answers, I dont want more tests . Pt mag 1.8, 1 bag ordered and pt refused- provider notified. 0200 pt c/o feeling hot, VS taken and temp increased to 99.9F, HR128. Provider aware and EKG ordered -showed sinus tach and shown to provider, 1x bolus NS ordered and pt did allow that. Pt has multiple wounds placed into avatar, wound consult placed. PT has been NPO since 09/17/24 at 0000 for possible surgical intervention 09/18/24, pt made aware but noncompliant with plan. Pt did finally receive antibiotics at 0400 and 0500, pt then trying to climb OOB, called 9-1-1 5x asking them to send strong men to help me go get pizza , pt refused vitals when attempted at 0600, kept asking for food/waterand to get out of the hospital. Refused morning labs this morning with multiple attempts. Bed alarm active, bed in lowest position. * JAKE Carrero - 09/17/2024 10:54 PM EST UPDATE: 0230 Patient refusing care and medication overnight with nursing staff Became tachycardic (sinus tachycardia 120s) Bolus 500cc NS IVF Add on troponin since pt reported chest discomfort Follow up CT resulted tonight: CT Upper Extremity w Contrast Right [[id number]]Collected: 09/17/242133Order Status: CompletedUpdated: 09/17/242134Narrative: Exam: Contrast-enhanced CT of the right shoulder, [...] There is a small right pleural effusion. Impression: Impression: 1. 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 Septic arthritis can not be excluded. Consider joint aspiration. 2. Chronic appearing changes involving the proximal humerus, glenoid, scapula, as well as distal clavicle. However, given this scenario, the possibility of osteomyelitis can not be excluded. This document has been electronically signed by: Tom Peña MD on 09/17/2024 21:34:39 - Continue IV abx - Ortho surgery consult in AM - NPO overnight - MRI W/WO of R shoulder for AM due to ? OM on CAT scan * Elsi Tinoco PharmD - 09/17/2024 9:10 PM EST Initial Pharmacy Vancomycin Dosing Consultation Consult ordering provider: JAKE Lowery 74 y.o. female is being started on vancomycin for bone/joint for 7 days with a goal trough per Provider of 15-18 mg/L. Relevant data Height: 1.549 m (61 ) Weight: 46.3 kg (102 lb) Temp Readings from Last 3 Encounters: 09/17/24 37 ??C (98.6 ??F) (Oral) 08/14/24 36.3 ??C (97.3 ??F) WBC Date Value Ref Range Status 09/17/2024 19.8 (H) 4.8 - 10.8 K/mcL Final 08/14/2024 12.3 (H) 4.8 - 10.8 K/mcL Final 08/13/2024 15.6 (H) 4.8 - 10.8 K/mcL Final Creatinine Date Value Ref Range Status 09/17/2024 0.18 (L) 0.50 - 1.10 mg/dL Final 08/14/2024 0.44 (L) 0.50 - 1.10 mg/dL Final 08/13/2024 0.21 (L) 0.50 - 1.10 mg/dL Final Estimated Creatinine Clearance: 125 mL/min (A) (by C-G formula based on SCr of 0.18 mg/dL (L)). mL/min Cockcroft-Gault Recent Results (from the past 168 hour(s)) Respiratory virus panel molecular study Collection Time: 09/17/24 4:06 PM Specimen: Nares; Swab Result Value Ref Range Adenovirus Detection by PCR Not Detected Not Detected Influenza A PCR Not Detected Not Detected Influenza B PCR Not Detected Not Detected Coronavirus 229E Not Detected Not Detected Coronavirus HKU1 Not Detected Not Detected Coronavirus OC43 Not Detected Not Detected Coronavirus NL63 Not Detected Not Detected Parainfluenza Virus 1 Not Detected Not Detected Parainfluenza Virus 2 Not Detected Not Detected Parainfluenza Virus 3 Not Detected Not Detected Parainfluenza Virus 4 Not Detected Not Detected RSV PCR Not Detected Not Detected Human Metapneumovirus A and B Not Detected Not Detected Rhinovirus/Enterovirus Not Detected Not Detected Bordetella pertussis Not Detected Not Detected Bordetella parapertussis Not Detected Not Detected Mycoplasma pneumo by PCR Not Detected Not Detected Chlamydia pneumoniae Not Detected Not Detected SARS COV-2 Not Detected Not Detected Blood culture Collection Time: 09/17/24 4:35 PM Specimen: Blood Result Value Ref Range Culture, Blood Culture in progress Blood culture Collection Time: 09/17/24 4:35 PM Specimen: Blood, Venous Result Value Ref Range Culture, Blood Culture in progress Patient is also receiving the following antibiotic(s): ceftriaxone Plan Pharmacy will initiate a maintenance dose of 750 mg every 8 hours starting on 09/17/24 at 22:00. Per protocol, therapy is expected to last more than 5 days and therefore a trough indicated. A trough has been ordered for 09/19/24 at 05:00 prior to 5th dose due on 09/19/24 at 06:00. Therapy is planned to end on 09/24/24 at this time. Will continue to monitor and recommend changes as necessary. Elsi Tinoco PharmD 09/17/24 9:04 PM EST * Vesta Noyola RN - 09/17/2024 7:30 PM EST ED RN HANDOFF (All Downs Below Must Be Completed) Reason/Diagnosis for Admission: Type of Admission: [x] Medsurg, [] Telemetry Already in a Hospital Bed: [] Yes / [x] No Room Considerations/Precautions (ex: fever, diarrhea, or any infectious concerns): [] Yes / [] No Credit Collection Associate: [] Yes / [] No If YES, Cardiac Rhythm: [] NSR, [] SB, [] ST, [] A-FIB, [] A-Flutter, [] Pacemaker, [] 1st Degree HB, [] 2nd Degree HB, [] 3rd Degree HB Reason for Credit Collection Associate: VS: Visit Vitals BP (!) 143/62 (BP Location: Right arm, Patient Position: Sitting) Pulse (!) 111 Temp 37 ??C (98.6 ??F) (Oral) Resp 20 Ht 1.549 m (61 ) Wt 46.3 kg (102 lb) SpO2 94% BMI 19.27 kg/m?? Smoking Status Never BSA 1.42 m?? Current Mental Status: A/O x [x]4, []3, []2, []1 Current Ambulation Status: IV Access: [x] Yes / [] No Field IV present: [] Yes / [] No Hx of Violence: [] Yes / [] No / [] Unknown Fall Risk:[] Yes / [] No Yellow Bracelet Applied [] Yes / [] No Yellow Socks Applied [] Yes / [] No Patient Belongings inventoried and BL completed: [] Yes / [] No Patient belongings stored in the security closet: [] Yes (If Yes please supply Security bag #): [] No Patient Medications stored in Pharmacy: [] Yes (If Yes please supply Medication Security bag #): [] No ED Summary of Care: see chart Submitted by and Phone Extension: [phone] * Gabriel Pang RN - 09/17/2024 3:45 PM EST Patient coming from [facility] with elevated wbc. Unknown source * Rich Varner MD - 09/17/2024 3:37 PM EST Emergency Medicine Note Patient Name: Louann Barrientos Initial Evaluation: 09/17/2024 : 1950 Patient's PCP: Dale Pinto MD Emergency Physician: Rich Varner MD History of Present Illness Chief Complaint: Chief Complaint Patient presents with Blood Infection HPI: 74-year-old female with history of rheumatoid arthritis sent by Dr. Gamez at [facility] with concerns about possible right shoulder septic arthritis. She apparently had an x-ray today which showed effusion. He spoke to our hospitalist team and the plan is CAT scan of the shoulder and admission to the hospital. Patient admits to 10/10 severe right shoulder pain. She says it started 2 days ago on September 15, 2024 the day after she states it was hurt while helping her up. She denies fevers, chills, rigors, nausea or vomiting. No skin rashes. She has chronic pain all over due to her rheumatoid arthritis. ROS: I have performed a ROS with the pertinent positives and negatives documented in the history ofpresent illness. Previous History Past Medical History: Diagnosis Date Raynaud disease DX:Raynaud disease Rheumatoid arthritis (CMS/HCC) DX:Rheumatoid arthritis (HCC) Sicca (CMS/HCC) DX:Sicca (HCC) Past Surgical History: Procedure Laterality Date LEG SURGERY Left 11/16/2022 PROCEDURE:LEG SURGERY;COMMENT:Procedure: I&D LEFT LOWER EXTREMITY; Surgeon: Robbie Villagran MD;Location: [facility] MAIN OPERATING ROOM; Service: Orthopedic Trauma; Laterality: Left; OTHER SURGICAL HISTORY Left 10/16/2022 PROCEDURE:ORIF FEMORAL SHAFT FRACTURE W/ PLATES AND SCREWS;COMMENT:Procedure: REPAIR NONUNION LEFT FEMUR/ORIF LEFT FEMUR; Surgeon: Robbie Villagran MD; [facility]: [facility] [facility]; Service: Orthopedic Trauma; Laterality: Left; TOTAL HIP ARTHROPLASTY Right PROCEDURE:TOTAL HIP ARTHROPLASTY Social History Tobacco Use Smoking status: Never Smokeless tobacco: Never Substance Use Topics Alcohol use: Never Drug use: Never No family history on file. is allergic to penicillins and sulfa (sulfonamide antibiotics). No current facility-administered medications on file prior to encounter. Current Outpatient Medications on File Prior to Encounter Medication Sig Dispense Refill acetaminophen (TYLENOL) 325 mg tablet Take 3 tablets (975 mg total) by mouth every 8 hours. artificial tears,hypromellose, 0.3 % drops Administer 1 drop into affected eye(s) 3 times daily as needed. ascorbic acid, vitamin C, 500 mg capsule Take 1 capsule by mouth daily. aspirin 81 mg EC tablet Take 1 tablet (81 mg total) by mouth 1 (one) time each day. atorvastatin (LIPITOR) 80 mg tablet Take 1 tablet (80 mg total) by mouth 1 (one) time each day. carvediloL (COREG) 3.125 mg tablet Take 1 tablet (3.125 mg total) by mouth 2 (two) times a day withmeals. dapagliflozin propanediol (FARXIGA) 10 mg tablet Take 1 tablet (10 mg total) by mouth 1 (one) time each day. docusate sodium (COLACE) 100 mg capsule Take 1 capsule (100 mg total) by mouth 2 (two) times a day. furosemide (LASIX) 20 mg tablet Take 1 tablet (20 mg total) by mouth 1 (one) time each day. LACTOBACILLUS ACIDOPHILUS ORAL Take 3 capsules by mouth daily. spironolactone (ALDACTONE) 25 mg tablet Take 1 tablet (25 mg total) by mouth 1 (one) time each day. Physical Exam ED Triage Vitals [09/17/24 1553] Temp Heart Rate Resp BP 37.3 ??C (99.1 ??F) 105 16 (!) 144/61 SpO2 Temp Source Heart Rate Source Patient Position 94 % Oral -- -- BP Location FiO2 (%) -- -- General: Chronically ill-appearing female lying on the gurney in no acute distress HEENT: PERRL, EOMI, external ears and nose appear unremarkable, airway is patent Neck: No midline spinal tenderness Chest: Clear to auscultation; no evidence of respiratory distress, there is a half dollar sized area of swelling and tenderness on the right anterior chest region without erythema or warmth Circulatory: RRR, extremities well perfused Abdomen: Non-distended, Non-Tender Extremities: POSITIVE edema at bilateral knees right elbow and tenderness at the anterior and posterior right shoulder without crepitus, POSITIVE worsening pain with active and passive range of motion of the shoulder Skin: Warm and dry, no erythema or warmth noted Neuro: Alert and oriented, no focal deficits, pleasant and conversational Results Labs Reviewed RESPIRATORY VIRUS PANEL MOLECULAR STUDY - Normal Result Value Adenovirus Detection by PCR Not Detected Influenza A PCR Not Detected Influenza B PCR Not Detected Coronavirus 229E Not Detected Coronavirus HKU1 Not Detected Coronavirus OC43 Not Detected Coronavirus NL63 Not Detected Parainfluenza Virus 1 Not Detected Parainfluenza Virus 2 Not Detected Parainfluenza Virus 3 Not Detected Parainfluenza Virus 4 Not Detected RSV PCR Not Detected Human Metapneumovirus A and B Not Detected Rhinovirus/Enterovirus Not Detected Bordetella pertussis Not Detected Bordetella parapertussis Not Detected Mycoplasma pneumo by PCR Not Detected Chlamydia pneumoniae Not Detected SARS COV-2 Not Detected Narrative: Testing was performed using the [employer] Respiratory Pathogen PCR Assay. All results must [...] that are below the limit of detection. LACTATE - Normal Lactate 1.4 CULTURE BLOOD Culture, Blood Culture in progress CULTURE BLOOD Culture, Blood Culture in progress CBC AND DIFFERENTIAL Narrative: The following orders were created for panel order CBC and differential. Procedure Abnormality Status --------- ------ CBC auto differential[[id number]] In process Please view results for these tests on the individual orders. COMPREHENSIVE METABOLIC PANEL URINALYSIS WITH REFLEX MICROSCOPIC AND CULTURE Narrative: The following orders were created for panel order Urinalysis with reflex microscopic and culture. Procedure Abnormality Status --------- ------ Urinalysis with reflex ...[[id number]] Waters urine culture tube[[id number]] Please view results for these tests on the individual orders. CBC WITH AUTO DIFFERENTIAL URINALYSIS WITH REFLEX MICROSCOPIC AND CULTURE C-REACTIVE PROTEIN SEDIMENTATION RATE Abnormal Labs Reviewed - No abnormal labs to display XR Chest 2 Views (Results Pending) CT Upper Extremity w Contrast Right (Results Pending) I have discussed the incidental/abnormal imaging and/or lab abnormalities with the patient and haveinstructed them the need for further evaluation and workup with their primary care doctor. I have provided the patient with a paper copy of the abnormality. The laboratory results, imaging results and other diagnostic exam results were reviewed in the EMR. EKG Interpretation Critical Care Time None ? Medical Decision Making Medications sodium chloride 0.9 % infusion (has no administration in time range) Clinical Impressions as of 09/17/24 1846 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) 74-year-old female with acute right shoulder pain. Differential to include traumatic, rheumatoid arthritis, septic arthritis, strain, contusion Plan was already set in place prior to arrival. She is to get a CAT scan of her right shoulder and admission to [facility] to consider antibiotics after cultures. Procedures Procedures Diagnosis 1. 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) Disposition Admit to Inpatient ED Prescriptions None Physician Attestation Rich Varner MD 09/17/24 185 documented in this encounter H&P Notes * JAKE Carrero - 09/17/2024 6:05 PM EST Images from the original note were not included. BURNSIDE HISTORY AND PHYSICAL Please contact author [JAKE Mota] via Sales Layer/Travefy. Patient: Louann Barrientos Admission Date/Time: 09/17/2024 3:44 PM : 1950 [74 y.o.] Patient's PCP: Dale Pinto MD Attending Provider: Rich Varner MD;Nerm* CHIEF COMPLAINT: Right shoulder septic arthritis r/o HPI: 74-year-old female with PMH of rheumatoid arthritis, HFrEF, Sjogren's syndrome, chronic anemia, Raynaud's syndrome and anxiety presents to the ED from [facility] for concern for right shoulder septic arthritis Per ED note patient had an x-ray that showed effusion and had an elevated white count 19k Patient states she has baseline severe pain due to rheumatoid arthritis She had right shoulder discomfort and swelling but when asked today she states she has no discomfort or limited range of motion She denies any warmth, redness, decreased range of motion or significant pain She does report some mid scapular discomfort on the medial aspect She states a nurse vet assistant was helping her stand and had discomfort with the way in which the transfer took place Denies any fever, chills, nausea, emesis, lightheaded, dizziness, chest pain, abdominal pain Vitals: 144/61, pulse 105, 94% on room air, respiratory rate 16, afebrile Labs: pending Respiratory viral panel negative Blood culture x 2 pending ROS Negative except noted in HPI ALLERGIES: Penicillins Not Specified 08/08/2024 Sulfa (Sulfonamide Antibiotics) Not Specified 08/08/2024 HOME MEDICATIONS: Medication from 08/14 discharge summary Vitamin C 500 mg daily Aspirin 81 mg daily Atorvastatin 80 mg at bedtime Carvedilol 3.125 mg twice daily Farxiga 10 mg daily Furosemide 20 mg daily Spironolactone 25 mg daily PAST MEDICAL HISTORY: Recent admission for NSTEMI, acute respiratory failure with hypoxia, CHF exacerbation, sepsis on 08/09 HFrEF 30-35% Rheumatoid arthritis on Enbrel Sjogren's syndrome Anxiety Chronic anemia Raynaud's disease SURGICAL HISTORY: Left femoral shaft fracture s/p ORIF Left lower extremity I&D Right total hip arthroplasty SOCIAL HISTORY: Tobacco use - Denies Alcohol use - Denies Illicit drug use - Denies Mobility - Independent ADLs - Independent FAMILY HISTORY: Mother: RA Father: Heart disease, stroke. Grandmother: Psoriatic arthritis PHYSICAL EXAM: GENERAL: 74 year old chronically ill appearing female resting in NAD HEENT: Normocephalic. EOM intact. PERRL. Dry MM. CARDIAC: RRR. No murmur, rubs, gallops. Slight bilateral edema, nonpitting, PULMONARY: Lungs clear bilaterally, normal respiratory rate. No wheeze/rales. GI: Soft, nontender, nondistended, normoactive bowel sounds x4. MSK: Chronic bilateral hand and feet deformity due to RA, Bilateral extremity ROM difficulties NEURO: Pleasant, A&Ox3. SKIN: Small left heel wound without drainage RESULTS/IMAGING: ASSESSMENT AND PLAN: Leukocytosis Right shoulder septic arthritis r/o Patient presented for leukocytosis from [facility] for concern of elevated WBC 19k and XR that showed an effusion of the right shoulder She did report a few days ago having a CALENDER WIND UP HELPER help her w/ a transfer which resulted in right shoulder pain/swelling Currently not currently experiencing any significant discomfort Ceftriaxone 2g Q24h Vancomycin, pharmacy to dose CT Right extremitiy is ordered, pending Blood Culture x2 ordered, pending Pending CT results consider ortho surgery conuslt and ID consult AM labs HFrEF 30-35% Farxiga 10 mg daily Furosemide 20 mg daily Spironolactone 25 mg daily I&O Daily weights Hyperlipidemia Atorvastatin 80 mg at bedtime Hypertension Carvedilol 3.125 mg twice daily FULL CODE HCP: winston Lopez [phone] PPX: Pneumoboots Case and plan discussed with: Dr. Hagan 75 minutes or greater was spent on performing a medically appropriate history and physical examination, review of laboratory and radiology data requiring a high level of medical decision making. Associated attestation - Dennis Hagan MD - 09/18/2024 6:20 PM EST This is a split/shared visit with JAKE Carrero. I personally performed the medical decision making (MDM) for the care of this patient on 09/17/24 asdocumented below 74-year-old female with history of rheumatoid arthritis and Sjogren's syndrome as well as Raynaud'ssyndrome presents with concern of right shoulder septic arthritis. She has significant leukocytosisand severe pain. Her vital signs are stable. Laboratory data are pending. Viral panel is negative. Blood cultures are pending. Agree with admission to the hospital and treatment of septic arthritis. Rocephin 2 g IV daily alongwith vancomycin. CT of the right extremity has been ordered. Blood culture is pending. Chronic management as per Katty's note Dennis Hagan MD 09/18/24 6:18 PM EST documented in this encounter Procedure Notes * Henri Mcdowell MD - 09/19/2024 10:15 AM EST ORTHOPEDIC OPERATIVE REPORT Date of procedure: 19 September 2024 Preoperative diagnosis: Right shoulder, septic arthritis Postoperative diagnosis: Right shoulder, septic arthritis Procedure: Right shoulder arthroscopic irrigation and debridement Surgeon: HUNTER Mcdowell MD Anesthesia GETA Anesthesiologist:Ac QUIÑONES Antibiotics: As per schedule Fluids: 500 cc EBL: Minimal Culture: X 2 Pathology: None Complications: None Drains: None Description of procedure: Patient greeted in holding area cytidine performed double marker H&P reviewed labs reviewed Patient was consented with both her son and/MPOA/son Patient then transported to the OR GA induced Patient properly positioned in beachchair. Attention/care focused on cervical spine protection due to underlying rheumatoid arthritis Sterile prep and drape form Final timeout performed Arthroscopic irrigation debridement was easily achieved by posterior portal and anterior portal.. Copious amounts of purulence exuded at first. And the joint was thoroughly copiously irrigated and visualized A shaver was used to be anterior portal to help with visualization fluid control All purulence was removed from the joint. Clear fluid with some mild bleeding was noted at the end.The portals were then closed Patient recovered without complication HUNTER Mcdowell MD POSTOP ORDERS: Antibiotics: As per infectious disease Analgesia as charted with orders Limit opiates and wean off as tolerated Anticoagulation: As per hospitalist Activity PT/OT: Right upper extremity gentle motion as tolerated Reassessment may advance as tolerated documented in this encounter Consult Notes * Mary Constantino RD - 09/21/2024 4:24 PM ESTAssociated Order(s): IP CONSULT TO NUTRITION SERVICES 09/21/2024 @ 5:02 PM EST Nutrition Follow up Note Reason for RD Intervention: Assessment Type: Provider Consult (and follow up) Reason for Assessment: Wound Additional Assessment Information: oral intake Anthropometrics: Height: 154.9 cm (60.98 ) Weight: 45.6 kg (100 lb 9.6 oz) Weight Method: Estimated BMI (Calculated): 19 BMI Class: Normal UBW (lbs): (per [employer] recors, weight listed at 48 kg 06/27/24, now listed at 44.5 kg, possible loss of 5% over 3 months) Current Diet and Supplements: Dietary Orders (From admission, onward) Start Ordered 09/21/24 0958 Dietary nutrition supplements Three times daily (TID); [facility]; Standard Small Volume Continuous Comments: Vary flavor Question Answer Comment Frequency Three times daily (TID) Location [facility] Supplements Standard Small Volume 09/21/24 0958 09/19/24 0757 Adult diet [facility]; General, Fluid Restriction, Cardiac; Regular; Fluid Restriction 1500 mL; Sodium 2 gm Restriction Diet effective now Question Answer Comment Location [facility] Diet Type (req) General Diet Type (req) Fluid Restriction Diet Type (req) Cardiac General Diet Regular Fluid Restrictions Fluid Restriction 1500 mL Diet Type (cardiac) Sodium 2 gm Restriction 09/19/24 0757 History of presenting illness: Patient is a 74 y.o. female with a history of Past Medical History: Diagnosis Date Raynaud disease DX:Raynaud disease Rheumatoid arthritis (CMS/HCC) DX:Rheumatoid arthritis (HCC) Sicca (CMS/HCC) DX:Sicca (HCC) Past Surgical History: Procedure Laterality Date LEG SURGERY Left 11/16/2022 PROCEDURE:LEG SURGERY;COMMENT:Procedure: I&D LEFT LOWER EXTREMITY; Surgeon: Robbie Villagran MD;Location: [facility] MAIN OPERATING ROOM; Service: Orthopedic Trauma; Laterality: Left; OTHER SURGICAL HISTORY Left 10/16/2022 PROCEDURE:ORIF FEMORAL SHAFT FRACTURE W/ PLATES AND SCREWS;COMMENT:Procedure: REPAIR NONUNION LEFT FEMUR/ORIF LEFT FEMUR; Surgeon: Robbie Villagran MD; Location: [facility] MAIN OPERATING ROOM; Service: Orthopedic Trauma; Laterality: Left; TOTAL HIP ARTHROPLASTY Right PROCEDURE:TOTAL HIP ARTHROPLASTY admitted 09/17/2024 with Septic arthritis ([facility]/HCC). Food/Nutrition History: Self-selected diet(s) followed: PT provided only a breif interview before stating she was not up for talking this afternoon. Per [employer] record, pt had allergy to pineapple (entered) and per RD notes pt weight was 48 kg 06/27/24, 5% loss over 3 months. At that time she reported tolerating hot cereal, eggs, broccoli, white fish, cottage cheese, whole milk, vanilla ice cream. She disliked trials of mikshakes and found many supplements too thick, dislikes tuna, tired of yogurt and pudding. Did report that she likes Big Macs. Appetite ABLE BODIED TANKERMAN: Other (Comment) (limited data) Weight History: Wt Readings from Last 10 Encounters: 09/21/24 45.6 kg (100 lb 9.6 oz) 08/14/24 47.7 kg (105 lb 3.2 oz) Subjective Assessment: Pt recently returned from attempted MRI. She reports she is not able to move her upper right extremity. RN has attempted to assist with meals but reports pt has declined. RN reports pt has had limited PO, limited fluids. Pt now willing to take Ensure over ice (she has declined Ensure in the past). Encourage supplements. BG 69, creat low, likely reflecting low muscle mass and inadequate intake. Pthas chronic CHF with EF 30%-35% but poor oral intake. Consider more liberal food requests to support adequate intake and wound healing. Nutrition-Related Lab Values: Results from last 7 days Lab Units 09/21/24 1220 09/21/24 0917 09/21/24 0622 09/19/24 0748 09/19/24 0546 SODIUM mmol/L -- -- 140 < > 137 POTASSIUM mmol/L -- -- 3.8 < > 3.9 MAGNESIUM mg/dL -- -- -- -- 1.8* CHLORIDE mmol/L -- -- 104 < > 102 CO2 mmol/L -- -- 25 < > 23 BUN mg/dL -- -- 16 < > 12 CREATININE mg/dL -- -- 0.20* < > <0.15* EGFR mL/min/1.73m2 -- -- 121 < > -- CALCIUM mg/dL -- -- 8.0* < > 7.9* BILIRUBIN TOTAL mg/dL -- -- -- -- 0.3 ALK PHOS unit/L -- -- -- -- 100 ALT unit/L -- -- -- -- <6* AST unit/L -- -- -- -- 27 POCT GLUCOSE mg/dL 88 < > -- < > -- GLUCOSE mg/dL -- -- 69* < > 64* WBC AUTO K/mcL -- -- 17.6* < > -- < > = values in this interval not displayed. Medications: acetaminophen, 1,000 mg, oral, q8h CELESTINO ascorbic acid, 500 mg, oral, Daily atorvastatin, 80 mg, oral, Daily ceFAZolin, 2 g, intravenous, q8h dapagliflozin propanediol, 10 mg, oral, Daily furosemide, 20 mg, oral, Daily heparin (porcine), 5,000 Units, subcutaneous, q8h CELESTINO magnesium sulfate, 2 g, intravenous, Once metoprolol tartrate, 25 mg, oral, BID sertraline, 25 mg, oral, Daily spironolactone, 25 mg, oral, Daily PRN medications: clonazePAM, dextrose 50%, dextrose 50%, dextrose, dextrose, glucagon injection, HYDROmorphone, metoprolol tartrate, oxyCODONE, oxyCODONE Energy Needs: kcal, gm protein, mL fluid per day. Total Energy Estimated Needs: 30-35 kcal/kg/day for wounds, 4792-3991 kcal/day. 1.2 up to 1.5 gm/kg/day, 55-69 gm/day, fluid 25-30 ml/kg/day, 2475-2833 ml /day Height: 154.9 cm (60.98 ) Temp: 36.3 ??C (97.3 ??F) Food/Nutrition-Current Status: Intake Type: P.O. Current Diet Status: Other (Comment) (Po is poor, pt may benefit from liberal diet) Current Supplement Status: Other (Comment) (Not ordered, Pt known to this chief writer has declined supplements at times in the past.) Appetite: Poor Intake Amount (%): Other (Comment) (bites/sips per RN report, no meal percentages recorded) Intake Assessment: Inadequate Main IVF: None Nutrition Focused Physical Findings: Overall Appearance: Pt appears slight, did not open eyes during attempted interivew, moutn appears dry. Ensure at bedside over ice, pt reports I drank it with ice. Only a small amount had been consumed. Nerves and Cognition: Alert Skin: left lower elbow skin tear, sacrum pressure injury stage 2, dermatitis under breasts, toe d2 right unstageable pressure injury, surgical incision right shoulder Fluid Accumulation/Edema: Not Examined Loss of Fat Location: (deferred nutrition focused physical exam as pt declined to complete interview.) Nutrition Diagnosis: Code Type: (day 5 of intake less than 50%. at risk of meeting criteria, nutrition focused physical assessment when able) Status: Other (Comment) (ongoing) Diagnosis: Increased Nutrient Needs Etiology: Increased demand for nutrient (calories and protein) Symptoms: as evidenced by sacral stage 2 , shoulder wound Nutrition Interventions: Medical Food Supplement Medical Food Supplement(s): Ensure Compact (4oz) Ensure Compact (4oz) Frequency: TID -on follow up, offer multivitamin ( pt has declined in the past). -question if appetite stimulant appropriate with out contraindication given weight loss since June, limited intake Goals: Patient will initially consume at least 50% of meals. , Patient will consume ONS., Electrolytes within normal range., Maintain weight., Stooling appropriately., and Wound healing progress. Coordination of Patient Care: Verbal discussion with RN. and Discussed with provider(s) via [employer] Layer Secure Chat/Haiku regarding supplement. Monitoring/Evaluation: Fluid/Beverage Intake, Food Intake, Weight, Gastrointestinal Profile, Other (Comment) (skin healing) Follow Up: Nutrition Priority Level: High Please consult nutrition if needed sooner. Nutritional Discharge Recommendations: Ensure compact tid, daily weights, multivitamin with minerals RD remains available and will continue to follow. Signature: Mary Constantino RD * Stacia Lewis MD - 09/18/2024 12:35 PM ESTAssociated Order(s): IP CONSULT TO INFECTIOUS DISEASES Infectious Diseases Consult 09/18/24 No ref. provider found Dale Pinto MD Reason for Consultation: MSSA bacteremia, suspected right shoulder septic arthritis Source of history: chart review and the patient History Of Present Illness (includes Chief Complaint): Louann Barrientos is a 74 y.o. female who has a past medical history of Raynaud disease, Rheumatoid arthritis ([facility]), and Sicca ([facility]).. The patient was admitted to the hospital on 09/17/2024 for right shoulder pain. The patient is extremely poor historian so history is taken with the help of chartreview. It appears that the patient has been having shoulder pain for a while, she is unable to tell anyone for how long CT of the upper extremity showed a large multiloculated joint effusion of the right shoulder glenohumeral joint. The patient's blood cultures been positive for MSSA. She was started on vancomycin and ceftriaxone. She was seen by orthopedic surgery who recommended IR guided aspiration of the shoulder. The patient is also complaining of pain in her lower back as well as pain inher shoulder. She is unable to tell me anything else.. The ID service has been consulted for management during this patient's hospital stay. Past Medical History: Past Medical History: Diagnosis Date Raynaud disease DX:Raynaud disease Rheumatoid arthritis ([facility]) DX:Rheumatoid arthritis (HCC) Sicca ([facility]) DX:Sicca ([facility]) Surgical History: Past Surgical History: Procedure Laterality Date LEG SURGERY Left 11/16/2022 PROCEDURE:LEG SURGERY;COMMENT:Procedure: I&D LEFT LOWER EXTREMITY; Surgeon: Robbie Villagran MD;Location: [facility] MAIN OPERATING ROOM; Service: Orthopedic Trauma; Laterality: Left; OTHER SURGICAL HISTORY Left 10/16/2022 PROCEDURE:ORIF FEMORAL SHAFT FRACTURE W/ PLATES AND SCREWS;COMMENT:Procedure: REPAIR NONUNION LEFT FEMUR/ORIF LEFT FEMUR; Surgeon: Robbie Villagran MD; Location: [facility] MAIN OPERATING ROOM; Service: Orthopedic Trauma; Laterality: Left; TOTAL HIP ARTHROPLASTY Right PROCEDURE:TOTAL HIP ARTHROPLASTY Family History: No family history on file. Social History: Social History Tobacco Use Smoking status: Never Smokeless tobacco: Never Substance Use Topics Alcohol use: Never Drug use: Never Allergies: Penicillins and Sulfa (sulfonamide antibiotics) Home Medications: Prior to Admission medications Medication Sig Start Date End Date Taking? Authorizing Provider acetaminophen (TYLENOL) 325 mg tablet Take 3 tablets (975 mg total) by mouth every 8 hours. 11/19/22Historical Provider, artificial tears,hypromellose, 0.3 % drops Administer 1 drop into affected eye(s) 3 times daily as needed. Historical Provider, ascorbic acid, vitamin C, 500 mg capsule Take 1 capsule by mouth daily. 08/03/24 Historical ProviderMD aspirin 81 mg EC tablet Take 1 tablet (81 mg total) by mouth 1 (one) time each day. 11/19/22 Historical ProviderMD atorvastatin (LIPITOR) 80 mg tablet Take 1 tablet (80 mg total) by mouth 1 (one) time each day. 08/15/24 11/13/24 Isa Wright MD carvediloL (COREG) 3.125 mg tablet Take 1 tablet (3.125 mg total) by mouth 2 (two) times a day withmeals. 08/14/24 09/13/24 Isa Wright MD dapagliflozin propanediol (FARXIGA) 10 mg tablet Take 1 tablet (10 mg total) by mouth 1 (one) time each day. 08/15/24 11/13/24 Isa Wright MD docusate sodium (COLACE) 100 mg capsule Take 1 capsule (100 mg total) by mouth 2 (two) times a day.11/19/22 Historical ProviderMD furosemide (LASIX) 20 mg tablet Take 1 tablet (20 mg total) by mouth 1 (one) time each day. 08/15/24 09/14/24 Isa Wright MD LACTOBACILLUS ACIDOPHILUS ORAL Take 3 capsules by mouth daily. 08/03/24 Brandon ProviderMD spironolactone (ALDACTONE) 25 mg tablet Take 1 tablet (25 mg total) by mouth 1 (one) time each day.08/15/24 09/14/24 Isa Wright MD Current Medications: Current Facility-Administered Medications: acetaminophen (TYLENOL) tablet 650 mg, 650 mg, oral, q6h PRN, JAKE Kirk, 650 mg at 09/18/24 0902 ascorbic acid (VITAMIN C) tablet 500 mg, 500 mg, oral, Daily, JAKE Carrero atorvastatin (LIPITOR) tablet 80 mg, 80 mg, oral, Daily, JAKE Carrero ceFAZolin (ANCEF) 2 g in sterile water 20 mL IV syringe, 2 g, intravenous, q8h, Stacia Lewis MD clonazePAM (KlonoPIN) tablet 0.5 mg, 0.5 mg, oral, TID PRN, Bernardo Alcantara MD, 0.5 mg at 09/18/24 0842 dapagliflozin propanediol (FARXIGA) tablet 10 mg, 10 mg, oral, Daily, JAKE Carrero furosemide (LASIX) tablet 20 mg, 20 mg, oral, Daily, JAKE Carrero, 20 mg at 09/18/24 0843 magnesium sulfate 2 gram/50 mL (4 %) IVPB 2 g, 2 g, intravenous, Once, JAKE Carrero metoprolol tartrate (LOPRESSOR) 5 mg in sodium chloride 0.9 % 50 mL IVPB, 5 mg, intravenous, q6h PRN, Bernardo Alcantara MD metoprolol tartrate (LOPRESSOR) tablet 25 mg, 25 mg, oral, BID, Bernardo Alcantara MD, 25 mg at 09/18/24 0842 oxyCODONE (ROXICODONE) immediate release tablet 5 mg, 5 mg, oral, q6h PRN, JAKE Pyle sertraline (ZOLOFT) tablet 25 mg, 25 mg, oral, Daily, Bernardo Alcantara MD spironolactone (ALDACTONE) tablet 25 mg, 25 mg, oral, Daily, JAKE Carrero, 25 mg at 09/18/24 0843 PRN medications: acetaminophen, clonazePAM, metoprolol tartrate, oxyCODONE ROS: Review of Systems Constitutional: Negative. HENT: Negative. Respiratory: Negative. Cardiovascular: Negative. Gastrointestinal: Negative. Genitourinary: Negative. Musculoskeletal: Positive for arthralgias and back pain. Negative for gait problem, joint swelling,myalgias and neck pain. Skin: Negative. Vital signs for last 24 hours: Temp: 38.8 ??C (101.8 ??F) (09/18 953) Heart Rate: 100 (09/18 953) Resp: 24 (09/18 953) BP: 95/62 (09/18 953) Intake/Output this shift: I/O this shift: In: 100 [IV Piggyback:100] Out: - Physicial Exam Physical Exam Vitals reviewed. Constitutional: Appearance: She is ill-appearing. HENT: Head: Normocephalic and atraumatic. Eyes: General: No scleral icterus. Cardiovascular: Rate and Rhythm: Normal rate and regular rhythm. Heart sounds: No murmur heard. No friction rub. No gallop. Pulmonary: Effort: Pulmonary effort is normal. No respiratory distress. Breath sounds: Normal breath sounds. No stridor. No wheezing, rhonchi or rales. Chest: Chest wall: No tenderness. Abdominal: General: Abdomen is flat. Bowel sounds are normal. There is no distension. Palpations: Abdomen is soft. There is no mass. Tenderness: There is no abdominal tenderness. There is no right CVA tenderness, left CVA tenderness, guarding or rebound. Hernia: No hernia is present. Musculoskeletal: General: No swelling, tenderness, deformity or signs of injury. Right lower leg: No edema. Left lower leg: No edema. Skin: General: Skin is warm and dry. Findings: No rash. Neurological: Mental Status: She is alert. She is disoriented. Results: Lab Admission on 09/17/2024 Component Date Value Sodium 09/17/2024 131 (L) Potassium 09/17/2024 3.4 (L) Chloride 09/17/2024 97 CO2 09/17/2024 26 Anion Gap 09/17/2024 8 Glucose 09/17/2024 81 BUN 09/17/2024 9 Creatinine 09/17/2024 0.18 (L) eGFR 09/17/2024 125 BUN/Creatinine Ratio 09/17/2024 50.0 Calcium 09/17/2024 7.9 (L) AST (SGOT) 09/17/2024 9 (L) ALT (SGPT) 09/17/2024 <6 (L) Alkaline Phosphatase 09/17/2024 105 Total Protein 09/17/2024 5.8 (L) Albumin 09/17/2024 1.9 (L) Total Bilirubin 09/17/2024 0.4 Adenovirus Detection by * 09/17/2024 Not Detected Influenza A PCR 09/17/2024 Not Detected Influenza B PCR 09/17/2024 Not Detected Coronavirus 229E 09/17/2024 Not Detected Coronavirus HKU1 09/17/2024 Not Detected Coronavirus OC43 09/17/2024 Not Detected Coronavirus NL63 09/17/2024 Not Detected Parainfluenza Virus 1 09/17/2024 Not Detected Parainfluenza Virus 2 09/17/2024 Not Detected Parainfluenza Virus 3 09/17/2024 Not Detected Parainfluenza Virus 4 09/17/2024 Not Detected RSV PCR 09/17/2024 Not Detected Human Metapneumovirus A * 09/17/2024 Not Detected Rhinovirus/Enterovirus 09/17/2024 Not Detected Bordetella pertussis 09/17/2024 Not Detected Bordetella parapertussis 09/17/2024 Not Detected Mycoplasma pneumo by PCR 09/17/2024 Not Detected Chlamydia pneumoniae 09/17/2024 Not Detected SARS COV-2 09/17/2024 Not Detected WBC 09/17/2024 19.8 (H) RBC 09/17/2024 4.00 Hemoglobin 09/17/2024 9.0 (L) Hematocrit 09/17/2024 28.8 (L) MCV 09/17/2024 72.5 (L) MCH 09/17/2024 22.7 (L) MCHC 09/17/2024 31.3 (L) RDW 09/17/2024 20.8 (H) Platelets 09/17/2024 500 (H) MPV 09/17/2024 8.6 NRBC 09/17/2024 0.0 NRBC Absolute 09/17/2024 0.00 Neutrophils Relative 09/17/2024 89.2 Lymphocytes Relative 09/17/2024 5.3 Monocytes Relative 09/17/2024 4.4 Eosinophils Relative 09/17/2024 0.2 Basophils Relative 09/17/2024 0.2 Immature Granulocytes Re* 09/17/2024 0.7 Neutrophils Absolute 09/17/2024 17.66 (H) Lymphocytes Absolute 09/17/2024 1.05 Monocytes Absolute 09/17/2024 0.86 Eosinophils Absolute 09/17/2024 0.03 Basophils Absolute 09/17/2024 0.03 Immature Granulocytes Ab* 09/17/2024 0.13 (H) Culture, Blood 09/17/2024 Culture in progress Gram Stain Result 09/17/2024 Aerobic and Anaerobic bottles Gram positive cocci (AA) Lactate 09/17/2024 1.4 Culture, Blood 09/17/2024 Culture in progress Gram Stain Result 09/17/2024 Aerobic and Anaerobic bottles Gram positive cocci (AA) C-Reactive Protein 09/17/2024 12.00 (H) Sed Rate 09/17/2024 121 (H) Sed Rate 09/17/2024 125 (H) C-Reactive Protein 09/17/2024 13.40 (H) Sodium 09/18/2024 133 Potassium 09/18/2024 3.8 Chloride 09/18/2024 101 CO2 09/18/2024 22 Anion Gap 09/18/2024 10 Glucose 09/18/2024 71 BUN 09/18/2024 7 Creatinine 09/18/2024 0.23 (L) eGFR 09/18/2024 117 BUN/Creatinine Ratio 09/18/2024 30.4 Calcium 09/18/2024 8.0 (L) WBC 09/18/2024 23.3 (H) RBC 09/18/2024 4.20 Hemoglobin 09/18/2024 9.4 (L) Hematocrit 09/18/2024 30.0 (L) MCV 09/18/2024 71.8 (L) MCH 09/18/2024 22.5 (L) MCHC 09/18/2024 31.3 (L) RDW 09/18/2024 21.2 (H) Platelets 09/18/2024 403 (H) MPV 09/18/2024 9.6 NRBC 09/18/2024 0.0 NRBC Absolute 09/18/2024 0.00 High Sensitivity Troponi* 09/18/2024 72 (H) Staphylococcus aureus 09/17/2024 Detected (A) Culture, Blood 09/18/2024 Culture in progress Ventricular Rate ECG 09/18/2024 120 Atrial Rate 09/18/2024 120 P-R Interval 09/18/2024 148 QRS Duration 09/18/2024 88 Q-T Interval 09/18/2024 318 QTc 09/18/2024 449 P Wave [place] 09/18/2024 58 R [place] 09/18/2024 6 T [place] 09/18/2024 29 ECG Interpretation 09/18/2024 Value:Sinus tachycardia Minimal voltage criteria for LVH, may be normal variant Borderline ECG When compared with ECG of 05-DEC-2024 02:15, Nonspecific T wave abnormality no longer evident in Anterior leads Lab Results Component Value Date BLOODCX Culture in progress 09/18/2024 BLOODCX Culture in progress 09/17/2024 BLOODCX Culture in progress 09/17/2024 URINECX No growth 07/20/2024 Recent Results (from the past 168 hour(s)) Respiratory virus panel molecular study Collection Time: 09/17/24 4:06 PM Specimen: Nares; Swab Result Value Ref Range Adenovirus Detection by PCR Not Detected Not Detected Influenza A PCR Not Detected Not Detected Influenza B PCR Not Detected Not Detected Coronavirus 229E Not Detected Not Detected Coronavirus HKU1 Not Detected Not Detected Coronavirus OC43 Not Detected Not Detected Coronavirus NL63 Not Detected Not Detected Parainfluenza Virus 1 Not Detected Not Detected Parainfluenza Virus 2 Not Detected Not Detected Parainfluenza Virus 3 Not Detected Not Detected Parainfluenza Virus 4 Not Detected Not Detected RSV PCR Not Detected Not Detected Human Metapneumovirus A and B Not Detected Not Detected Rhinovirus/Enterovirus Not Detected Not Detected Bordetella pertussis Not Detected Not Detected Bordetella parapertussis Not Detected Not Detected Mycoplasma pneumo by PCR Not Detected Not Detected Chlamydia pneumoniae Not Detected Not Detected SARS COV-2 Not Detected Not Detected Blood culture Collection Time: 09/17/24 4:35 PM Specimen: Blood Result Value Ref Range Culture, Blood Culture in progress Gram Stain Result Aerobic and Anaerobic bottles Gram positive cocci (AA) Blood culture Collection Time: 09/17/24 4:35 PM Specimen: Blood, Venous Result Value Ref Range Culture, Blood Culture in progress Gram Stain Result Aerobic and Anaerobic bottles Gram positive cocci (AA) Blood culture pathogens molecular study Collection Time: 09/17/24 4:35 PM Specimen: Blood, Venous Result Value Ref Range Staphylococcus aureus Detected (A) Not Detected Culture blood Collection Time: 09/18/24 9:31 AM Specimen: Blood, Venous Result Value Ref Range Culture, Blood Culture in progress Radiology: CT Chest/Abdomen/Pelvis w Contrast Narrative: CT chest, abdomen, and pelvis, 09/18/2024. HISTORY: Bacteremia. COMPARISON: CT chest 06/26/2024. TECHNIQUE: Contrast-enhanced CT of the chest, abdomen, and pelvis with coronal and sagittal reformats. IV contrast dose: 75 mL [id number]. Dose length product: 461 mGy-cm. FINDINGS: Lungs/pleura: Airways are normal in caliber. Moderate right and small left pleural effusions with associated compressive atelectasis. The right effusion extends into the major fissure. Thin linear markings in the upper lobes represent scarring and/or atelectasis. Mediastinum/viola: No mass or adenopathy. Thoracic vasculature: Extensive atherosclerotic calcifications of the aorta and great vessels. Pulmonary arteries are normal in caliber. No central pulmonary embolism. Cardiac: Mild cardiomegaly. Extensive coronary artery calcifications. Chest wall: Moderate anasarca. Mildly prominent supraclavicular and axillary nodes. The largest measures just under 1 cm in short axis and is located in the left axilla. These are suspected to be reactive. Liver: No focal lesion. Portal veins are patent. Biliary: Normal gallbladder and biliary tree. Pancreas: Normal. Spleen: Normal. Adrenal glands: Normal. Kidneys: Normal appearance of the kidneys. There is a small amount of excreted contrast in the proximal collecting systems which could potentially represent very small calculi. There is no visible collecting system calculus. Retroperitoneum: No mass or adenopathy. Abdominal vasculature: Extensive atherosclerotic calcifications. Bowel/mesentery: No obstruction or adenopathy. No mass or ascites. Abdominal wall: Moderate anasarca. Pelvic nodes: The pelvis is partially obscured by streak artifact. No visible adenopathy. Pelvic organs: The urinary bladder is distended with excreted intravenous contrast. Mild mural trabeculation. Streak artifact partially obscures the pelvis. Uterus is not seen and suspected to be absent. Neither ovary visible. Bones: Again demonstrated is a multilobulated right glenohumeral joint effusion with significant bony remodeling, possibly erosion, of the humeral head and to a lesser degree the glenoid. There is thick irregular synovial enhancement. The findings correlate with a provided history of septic arthritis. There are prominent degenerative changes of the left glenohumeral joint. Bilateral hip arthroplasties. Partially visible side plate and fixation screw hardware in the proximal left femur. Diffusedegenerative changes of the spine. Age indeterminate superior L3 and inferior L1 endplate fracture deformities/large Schmorl's nodes. Impression: 1. Again noted is a large multilobulated right glenohumeral joint effusion with irregular synovial enhancement. There is prominent bony irregularity of the humeral head and less prominentirregularity of the glenoid. The findings correlate with the provided history of a septic joint, with the bony findings raising the possibility of osteomyelitis. 2. Moderate right and small left pleural effusions. Anasarca. 3. Age-indeterminate endplate fractures at L1 and L3. -------- FINAL REPORT -------- Dictated By: Gabriel Arguelles Dictated Date: 09/18/2024 11:43 ET Assigned Physician: Gabriel Arguelles Reviewed and Electronically Signed By: Gabriel Arguelles Signed Date: 09/18/2024 11:58 ET Workstation ID: [id number] Transcribed By: Self Edit Transcribed Date: 09/18/2024 11:52 ET XR Chest 1 View Narrative: AP view of the chest, 09/18/2024. HISTORY: Cough, new onset. COMPARISON: 08/13/2024. FINDINGS: The patient's head obscures the left apex. Slight blunting of the costophrenic angles suggesting thickening or trace pleural fluid. Linear markings in the upper lung zones appear slightly improved compared with the previous study. Atherosclerotic calcifications of the aorta. Deformity of both humeral heads, right greater than left. Generalized osteopenia. Impression: Slightly improved aeration of the upper lungs. Small bilateral pleural effusions or pleural thickening. -------- FINAL REPORT -------- Dictated By: Gabriel Arguelles Dictated Date: 09/18/2024 08:23 ET Assigned Physician: Gabriel Arguelles Reviewed and Electronically Signed By: Gabriel Arguelles Signed Date: 09/18/2024 08:25 ET Workstation ID: [id number] Transcribed By: Self Edit Transcribed Date: 09/18/2024 08:23 ET Assessment/Plan Louann Barrientos is a 74 y.o. female who has a past medical history of Raynaud disease, Rheumatoid arthritis ([facility]), and Sicca ([facility]).. The patient was admitted to the hospital on 09/17/2024 for right shoulder pain. The patient is extremely poor historian so history is taken with the help of [email or web address]. It appears that the patient has been having shoulder pain for a while, she is unable to tell anyone for how long CT of the upper extremity showed a large multiloculated joint effusion of the right shoulder glenohumeral joint. The patient's blood cultures been positive for MSSA. She was started on vancomycin and ceftriaxone. She was seen by orthopedic surgery who recommended IR guided aspiration of the shoulder. The patient is also complaining of pain in her lower back as well as pain inher shoulder. She is unable to tell me anything else.. The ID service has been consulted for management during this patient's hospital stay. 1. MSSA bacteremia associated with suspected right shoulder septic arthritis I have switched antibiotics to just cefazolin Await blood culture clearance The patient is complaining of back pain, recommend thoracic and lumbar spine MRI with without contrast Recommend CT chest and abdomen to evaluate for septic emboli Will need TTE Await blood culture clearance Await aspiration results Appreciate orthopedic input Recommendations: 1. I switched the patient to cefazolin 2 g every 8, discontinue vancomycin and ceftriaxone 2. Await blood culture clearance, have ordered TWO sets, please ensure that if you are ordering blood culture to confirm clearance for ordering at least [address] chest and abdomen with contrast if possible as well as MRI with without contrast oflumbar and thoracic spine 4. Await results of aspirate, unfortunately fluid not sufficient for cell count per micro 5. Recommend TTE 6. Appreciate orthopedic input I personally spent 75 minutes in this encounter. This included performing a detailed chart review, reviewing and independently interpreting labs and other tests ordered by other providers, performinga history and physical, counseling the patient/family, discussing the case with primary team and micro lab, performing complex medical decision making, coordinating his/her/their plan of care and placing orders Communication: Thank you for the consult. Please do not hesitate to contact me via EpicChat with issues or questions Please note that this note has been completed with the help of voice recognition dictation software, as such there may be certain words that may be substituted or written in error error based on the voice-recognition tool, please contact me to clarify if any confusion Stacia Lewis MD * JAKE David - 09/18/2024 10:02 AM ESTAssociated Order(s): IP CONSULT TO INTERVENTIONAL RADIOLOGY Interventional Radiology Consult Note Reason for Consult: Louann Barrientos is being seen today for a consultative service at the request of Bernardo Alcantara MD for our opinion or medical advice regarding right shoulder aspiration. History Of Present Illness Louann Barrientos is a 74 y.o. female presenting with multiloculated right shoulder effusion, septic joint. Past Medical History She has a past medical history of Raynaud disease, Rheumatoid arthritis ([facility]), and [place]ca ([facility]). Surgical History She has a past surgical history that includes Total hip arthroplasty (Right); Leg Surgery (Left, 11/16/2022); and Other surgical history (Left, 10/16/2022). Family History family history is not on file. Social History She reports that she has never smoked. She has never used smokeless tobacco. She reports that she does not drink alcohol and does not use drugs. Allergies Penicillins and Sulfa (sulfonamide antibiotics) Medications Current Facility-Administered Medications: acetaminophen (TYLENOL) tablet 650 mg, 650 mg, oral, q6h PRN, JAKE Kirk, 650 mg at 09/18/24 0902 ascorbic acid (VITAMIN C) tablet 500 mg, 500 mg, oral, Daily, JAKE Carrero atorvastatin (LIPITOR) tablet 80 mg, 80 mg, oral, Daily, JAKE Carrero cefTRIAXone (ROCEPHIN) 2 g in sterile water 20 mL IV syringe, 2 g, intravenous, q24h, JAKE Carrero, 2 g at 09/18/24 0419 clonazePAM (KlonoPIN) tablet 0.5 mg, 0.5 mg, oral, TID PRN, Bernardo Alcantara MD, 0.5 mg at 09/18/24 0842 dapagliflozin propanediol (FARXIGA) tablet 10 mg, 10 mg, oral, Daily, JAKE Carrero furosemide (LASIX) tablet 20 mg, 20 mg, oral, Daily, JAKE Carrero, 20 mg at 09/18/24 0843 magnesium sulfate 2 gram/50 mL (4 %) IVPB 2 g, 2 g, intravenous, Once, JAKE Carrero metoprolol tartrate (LOPRESSOR) 5 mg in sodium chloride 0.9 % 50 mL IVPB, 5 mg, intravenous, q6h PRN, Bernardo Alcantara MD metoprolol tartrate (LOPRESSOR) tablet 25 mg, 25 mg, oral, BID, Bernardo Alcantara MD, 25 mg at 09/18/24 0842 potassium chloride 10 mEq/100 mL IVPB 10 mEq, 10 mEq, intravenous, q1h, JAKE Pyle, Last Rate: 100 mL/hr at 09/18/24 0904, 10 mEq at 09/18/24 0904 sertraline (ZOLOFT) tablet 25 mg, 25 mg, oral, Daily, Bernardo Alcantara MD spironolactone (ALDACTONE) tablet 25 mg, 25 mg, oral, Daily, JAKE Carrero, 25 mg at 09/18/24 0843 vancomycin (VANCOCIN) 750 mg in sodium chloride 0.9 % 250 mL IVPB, 750 mg, intravenous, q8h, JAKE Carrero, Stopped at 09/18/24 0610 Last Recorded Vitals Blood pressure 95/62, pulse 100, temperature (!) 38.8 ??C (101.8 ??F), temperature source Tympanic,resp. rate 24, height 1.549 m (61 ), weight 46.3 kg (102 lb), SpO2 91%. Relevant Results Recent Labs 09/18/24 0813 PLT 403* HGB 9.4* HCT 30.0* Assessment/Plan Principal Problem: Septic arthritis (CMS/HCC) Active Problems: 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 ([facility]) Plan for US guided right shoulder aspiration today pending consent. Will order. JAKE David * JAKE Edwards - 09/18/2024 9:00 AM ESTAssociated Order(s): IP CONSULT TO ORTHOPEDIC SURGERY Orthopedic Trauma Consult Note CHIEF COMPLAINT Right shoulder pain HPI Patient is a left hand dominant 74 y.o. female who presents with right shoulder pain. On 09-17-24, patient underwent x-ray of right shoulder which demonstrated an effusion so patient presented to [facility] ED. On arrival, vitals were remarkable for HR 105. Labs were remarkable for WBC 19.8, CRP 13.4, ESR 125 . Blood culture was positive for staph aureus. CT of the right upper extremity demonstrated Large multiloculated glenohumeral joint effusion, compatible with likely longstanding nonspecific synovitis. Septic arthritis can not be excluded. Consider joint aspiration. Chronic appearing changes involving the proximal humerus, glenoid, scapula, as well as distal clavicle. However, given this scenario, the possibility of osteomyelitis can not be excluded. Patient was admitted to the medical service and started on IV vancomycin and IV ceftriaxone. On 09-18-24, orthopedics was consulted. Patient states she is generally doing well. Reports that she has had persistent right shoulder painfor a while but is unable to explain exactly what the timeline is. States that she developed right anterior chest pain when she was improperly transferred sometime in the past few days. Reports that she recently had pneumonia and has had a cough. Patient denies fevers, chills, numbness, and paresthesias. Above information obtained from patient, patient's family if present, medical staff, and/or medicaldocumentation. ROS Patient states she is generally doing well. Reports that she has had persistent right shoulder painfor a while but is unable to explain exactly what the timeline is. States that she developed right anterior chest pain when she was improperly transferred sometime in the past few days. Reports that she recently had pneumonia and has had a cough. Patient denies fevers, chills, numbness, and paresthesias. PAST MEDICAL HISTORY She has a past medical history of Raynaud disease, Rheumatoid arthritis ([facility]), and [place] ([facility]). PAST SURGICAL HISTORY She has a past surgical history that includes Total hip arthroplasty (Right); Leg Surgery (Left, 11/16/2022); and Other surgical history (Left, 10/16/2022). ALLERGIES Penicillins and Sulfa (sulfonamide antibiotics) MEDICATIONS Home Medications acetaminophen (TYLENOL) 325 mg tablet Take 3 tablets (975 mg total) by mouth every 8 hours. artificial tears,hypromellose, 0.3 % drops Administer 1 drop into affected eye(s) 3 times daily as needed. ascorbic acid, vitamin C, 500 mg capsule Take 1 capsule by mouth daily. aspirin 81 mg EC tablet Take 1 tablet (81 mg total) by mouth 1 (one) time each day. atorvastatin (LIPITOR) 80 mg tablet Take 1 tablet (80 mg total) by mouth 1 (one) time each day. carvediloL (COREG) 3.125 mg tablet Take 1 tablet (3.125 mg total) by mouth 2 (two) times a day withmeals. dapagliflozin propanediol (FARXIGA) 10 mg tablet Take 1 tablet (10 mg total) by mouth 1 (one) time each day. docusate sodium (COLACE) 100 mg capsule Take 1 capsule (100 mg total) by mouth 2 (two) times a day. furosemide (LASIX) 20 mg tablet Take 1 tablet (20 mg total) by mouth 1 (one) time each day. LACTOBACILLUS ACIDOPHILUS ORAL Take 3 capsules by mouth daily. spironolactone (ALDACTONE) 25 mg tablet Take 1 tablet (25 mg total) by mouth 1 (one) time each day. SOCIAL HISTORY She reports that she has never smoked. She has never used smokeless tobacco. She reports that she does not drink alcohol and does not use drugs. FAMILY HISTORY family history is not on file. VITALS Vitals: 09/18/24 0815 BP: (!) 144/66 Pulse: (!) 137 Resp: 22 Temp: (!) 38.1 ??C (100.6 ??F) SpO2: PHYSICAL EXAM General: Alert and cooperative, lying comfortably in bed, in no acute distress, easily distractable HEENT: Normocephalic and atraumatic Pulmonary: No increased work of breathing appreciated and able to speak in full sentences Musculoskeletal: Right upper extremity- multiple deformities of the hand appreciated consistent with RA, no swelling/ecchymosis/erythema/wound appreciated particularly about the shoulder, shoulder isnontender to palpation, no fluctuance/induration appreciated, wiggles all fingers, unable to actively range shoulder, no pain elicited on passive range of motion of shoulder, sensation intact along radian/median/ulnar distributions, appears well-perfused Skin: Generally normal tone, dry, warm LABS Lab Results Component Value Date WBC 23.3 (H) 09/18/2024 HGB 9.4 (L) 09/18/2024 HCT 30.0 (L) 09/18/2024 PLT 403 (H) 09/18/2024 Lab Results Component Value Date NA 133 09/18/2024 K 3.8 09/18/2024 CL 101 09/18/2024 BUN 7 09/18/2024 CREATININE 0.23 (L) 09/18/2024 GLUCOSE 71 09/18/2024 CALCIUM 8.0 (L) 09/18/2024 Lab Results Component Value Date SEDRATE 125 (H) 09/17/2024 CRP 13.40 (H) 09/17/2024 No results found for: HGBA1C Lab Results Component Value Date PT 12.3 08/09/2024 APTT 28.2 08/09/2024 IMAGING XR Chest 1 View Narrative: AP view of the chest, 09/18/2024. HISTORY: Cough, new onset. COMPARISON: 08/13/2024. FINDINGS: The patient's head obscures the left apex. Slight blunting of the costophrenic angles suggesting thickening or trace pleural fluid. Linear markings in the upper lung zones appear slightly improved compared with the previous study. Atherosclerotic calcifications of the aorta. Deformity of both humeral heads, right greater than left. Generalized osteopenia. Impression: Slightly improved aeration of the upper lungs. Small bilateral pleural effusions or pleural thickening. -------- FINAL REPORT -------- Dictated By: Gabriel Arguelles Dictated Date: 09/18/2024 08:23 ET Assigned Physician: Gabriel Arguelles Reviewed and Electronically Signed By: Gabriel Arguelles Signed Date: 09/18/2024 08:25 ET Workstation ID: [id number] Transcribed By: Self Edit Transcribed Date: 09/18/2024 08:23 ET ASSESSMENT/PLAN Patient is hospital day 1 for concern for right shoulder septic arthritis. Patient also found to have elevated heart rate, low grade fever, and lab abnormalities. It is difficult to follow the patient's story as she does not report any particular acute symptoms of the right shoulder but also statesthat she has a history of right shoulder pain. Patient has no pain on passive range of motion of right shoulder which is not consistent with septic arthritis. She is unable to move it actively but itis unclear if this is her baseline. Given the patient's bacteremia, SIRS response, and CT findings of right shoulder effusion, septic arthritis cannot be ruled out. Patient would benefit from IR aspiration of right shoulder with fluid sent for analysis. - Weightbearing: Continue weightbearing as tolerated on affected extremity - Activity: May use right upper extremity as tolerated - Pain control: Continue current regimen - Misc: Continue IS; appreciate medical team management of comorbidities - Diet: Keep NPO for now in case IR requires her to be NPO for their procedure; patient should be NPO at 11:59 PM on 09/18 in anticipation of orthopedic re- evaluation on 09/19 - Proc: Anticipate right shoulder aspiration to be performed by IR on 09-18-24 - Labs: Fluid should undergo analysis for aerobic culture/anaerobic culture/cell count/crystals - DVT prophylaxis: Pneumatic compression stockings; hold off on chemical DVT prophylaxis until IR procedure is performed - Dispo: Ortho will continue to follow Above discussed with and agreed to by Dr. Jeremias Chaudhry PA-C documented in this encounter Plan of Treatment Pending Results Name Type Priority Associated Diagnoses Date /Time US Extremity Nonvascular Limited Right Imaging Routine 09/18/2024 12:05 PM EST Scheduled Orders Name Type Priority Associated Diagnoses Orde r Schedule US Extremity Nonvascular Limited Right Imaging Routine Once for 1 Occur rences starting 09/18/2024 until 09/18/2024 documented as of this encounter Procedures Procedure Name Priority Date/Time Associated Diagnosis Comments C-REACTIVE PROTEIN Routine 09/24/2024 7: 45 AM EST POCT GLUCOSE BLOOD Routine 09/23/2024 11 :09 AM EST POCT GLUCOSE BLOOD Routine 09/23/2024 8: 21 AM EST CBC WITH AUTO DIFFERENTIAL Routine 09/23/2024 5:30 AM EST CBC AND DIFFERENTIAL Routine 09/23/2024 5:30 AM EST BASIC METABOLIC PANEL Routine 09/23/2024 5:30 AM EST POCT GLUCOSE BLOOD Routine 09/22/2024 9: 12 PM EST POCT GLUCOSE BLOOD Routine 09/22/2024 5: 07 PM EST POCT GLUCOSE BLOOD Routine 09/22/2024 12 :38 PM EST POCT GLUCOSE BLOOD Routine 09/22/2024 8: 21 AM EST CBC WITH AUTO DIFFERENTIAL Routine 09/22/2024 5:59 AM EST COMPLETE BLOOD COUNT Timed 09/22/2024 5:59 AM EST CBC AND DIFFERENTIAL Routine 09/22/2024 5:59 AM EST BASIC METABOLIC PANEL Routine 09/22/2024 5:59 AM EST POCT GLUCOSE BLOOD Routine 09/21/2024 8: 09 PM EST POCT GLUCOSE BLOOD Routine 09/21/2024 6: 45 PM EST POCT GLUCOSE BLOOD Routine 09/21/2024 12 :20 PM EST ECG 12-LEAD STAT 09/21/2024 10:37 AM EST POCT GLUCOSE BLOOD Routine 09/21/2024 9: 17 AM EST CBC WITH AUTO DIFFERENTIAL Routine 09/21/2024 6:22 AM EST CBC AND DIFFERENTIAL Routine 09/21/2024 6:22 AM EST BASIC METABOLIC PANEL Routine 09/21/2024 6:22 AM EST MR THORACIC SPINE WO CONTRAST Routine 09/20/2024 7:21 PM EST RBC MORPHOLOGY REVIEW Routine 09/20/2024 8:38 AM EST CBC WITH AUTO DIFFERENTIAL Routine 09/20/2024 8:38 AM EST SEDIMENTATION RATE Routine 09/20/2024 8: 38 AM EST CBC AND DIFFERENTIAL Routine 09/20/2024 8:38 AM EST POCT GLUCOSE BLOOD Routine 09/20/2024 8: 01 AM EST C-REACTIVE PROTEIN Routine 09/20/2024 5: 43 AM EST BASIC METABOLIC PANEL Routine 09/20/2024 5:43 AM EST POCT GLUCOSE BLOOD Routine 09/19/2024 11 :48 PM EST POCT GLUCOSE BLOOD Routine 09/19/2024 4: 46 PM EST CULTURE BLOOD Routine 09/19/2024 4:34 PM EST CULTURE BLOOD Routine 09/19/2024 4:29 PM EST POCT GLUCOSE BLOOD Routine 09/19/2024 4: 13 PM EST POCT GLUCOSE BLOOD Routine 09/19/2024 12 :51 PM EST CULTURE BODY FLUID WITH GRAM STAIN Routine 09/19/2024 10:31 AM EST Pyogenic arthritis of right shoulder region, due to unspecified organism (CMS/HCC) ARTHROSCOPY SHOULDER 09/19/2024 9:35 AM EST Pyogenic [...] 09/18/2024 1:58 PM EST Bacteremia US ASP ABSCESS/HEMATOMA/BULL A/CYST Routine 09/18/2024 12:05 PM EST Shoulder effusion, right CULTURE BODY FLUID WITH GRAM STAIN Routine 09/18/2024 11:40 AM EST 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) Bacteremia Pyogenic arthritis of right shoulder region, due to unspecified organism (CMS/HCC) Septic arthritis (CMS/HCC) CT CHEST/ABDOMEN/PELVIS W CONTRAST STAT 09/18/2024 11:35 AM EST CULTURE BLOOD Routine 09/18/2024 9:31 AM EST COMPLETE BLOOD COUNT Routine 09/18/2024 8:13 AM EST BASIC METABOLIC PANEL Routine 09/18/2024 8:13 AM EST TROPONIN I HIGH SENSITIVITY Routine 09/18/2024 2:59 AM EST ECG 12-LEAD Routine 09/18/2024 2:31 AM EST SEDIMENTATION RATE Routine 09/17/2024 11 :23 PM EST C-REACTIVE PROTEIN Routine 09/17/2024 11 :23 PM EST XR CHEST 1 VIEW Routine 09/17/2024 11:[address] UPPER EXTREMITY W CONTRAST RIGHT STAT 09/17/2024 8:43 PM EST CBC WITH AUTO DIFFERENTIAL STAT 09/17/2024 6:33 PM EST SEDIMENTATION RATE STAT 09/17/2024 6: 33 PM EST CBC AND DIFFERENTIAL STAT 09/17/2024 6:33 PM EST C-REACTIVE PROTEIN STAT Add-on 09/17/2024 6: 33 PM EST COMPREHENSIVE METABOLIC PANEL STAT 09/17/2024 6:33 PM EST BLOOD CULTURE PATHOGENS BY PCR Routine 09/17/2024 4:35 PM EST CULTURE BLOOD STAT 09/17/2024 4:35 PM EST CULTURE BLOOD STAT 09/17/2024 4:35 PM EST LACTATE STAT 09/17/2024 4:35 PM EST RESPIRATORY VIRUS PANEL MOLECULAR STUDY STAT 09/17/2024 4:06 PM EST documented in this encounter Results * (ABNORMAL) C-reactive protein (09/24/2024 7:45 AM EST) Pathologist [facility] C-Reactive Protein 3.62(H) <=0.50 mg/dL LAB CHEMISTRY METHOD 09/24/2024 8:43 AM EST [facility] Blood Venous blood specimen / Unknown Venipuncture / Unknown 09/24/2024 7:45 AM EST 09/24/2024 8:10 AM EST Freya JOSEPH LAB BLOOD ORDERABLES [facility] [address] [place] [address], * (ABNORMAL) POCT Glucose, blood (09/23/2024 11:09 AM EST) Glucose POCT 126(H) 70 - 100 mg/dL 09/23/2024 11:11 AM EST [facility] Blood Capillary blood specimen / Unknown 09/23/2024 11:09 AM EST 09/23/2024 11:12 AM EST Bernardo Alcantara MD LAB POINT OF CARE TE ST DOCKED DEVICE UNSOLICITED RESULTS Performing Organization Address City/[facility]/ZIP Co de Phone Number [facility] [address] [place] [address], * (ABNORMAL) POCT Glucose, blood (09/23/2024 8:21 AM EST) Glucose POCT 129(H) 70 - 100 mg/dL 09/23/2024 8:22 AM EST [facility] Blood Capillary blood specimen / Unknown 09/23/2024 8:21 AM EST 09/23/2024 8:23 AM EST Bernardo Alcantara MD LAB POINT OF CARE TE ST DOCKED DEVICE UNSOLICITED RESULTS Performing Organization Address City/[facility]/ZIP Co de Phone Number [facility] [address] [place] [address], * (ABNORMAL) CBC auto differential (09/23/2024 5:30 AM EST) WBC 15.9(H) 4.8 - 10.8 K/[facility] LAB HEMETOLOGY METHOD 09/23/2024 6:48 AM EST [facility] RBC 3.70(L) 3.80 - 4.80 M/[facility] LAB HEMETOLOGY METHOD 09/23/2024 6:48 AM EST [facility] Hemoglobin 8.3(L) 11.5 - 16.0 g/dL LAB HEMETOLOGY METHOD 09/23/2024 6:48 AM EST [facility] Hematocrit 28.0(L) 35.0 - 47.0 % LAB HEMETOLOGY METHOD 09/23/2024 6:48 AM EST [facility] MCV 75.1(L) 79.0 - 98.0 FL LAB HEMETOLOGY METHOD 09/23/2024 6:48 AM [facility] MCH 22.3(L) 27.0 - 32.0 pcg LAB HEMETOLOGY METHOD 09/23/2024 6:48 AM [facility] MCHC 29.6(L) 32.0 - 37.0 g/dL LAB HEMETOLOGY METHOD 09/23/2024 6:48 AM [facility] RDW 22.1(H) 11.0 - 15.0 % LAB HEMETOLOGY METHOD 09/23/2024 6:48 AM [facility] Platelets 652(H) 130 - 400 K/mcL LAB HEMETOLOGY METHOD 09/23/2024 6:48 AM [facility] MPV 9.4 7.0 - 11.0 FL LAB HEMETOLOGY METHOD 09/23/2024 6:48 AM [facility] NRBC 0.0 <1.0 % LAB HEMETOLOGY METHOD 09/23/2024 6:48 AM [facility] NRBC Absolute 0.00 <0.10 K/mcL LAB HEMETOLOGY METHOD 09/23/2024 6:48 AM [facility] Neutrophils Relative 84.7 % LAB HEMETOLOGY METHOD 09/23/2024 6:48 AM [facility] Lymphocytes Relative 7.5 % LAB HEMETOLOGY METHOD 09/23/2024 6:48 AM [facility] Monocytes Relative 6.5 % LAB HEMETOLOGY METHOD 09/23/2024 6:48 AM [facility] Eosinophils Relative 0.0 % LAB HEMETOLOGY METHOD 09/23/2024 6:48 AM [facility] Basophils Relative 0.2 % LAB HEMETOLOGY METHOD 09/23/2024 6:48 AM EST [facility] Immature Granulocytes Relative 1.1 % LAB HEMETOLOGY METHOD 09/23/2024 6:48 AM EST [facility] Neutrophils Absolute 13.49(H) 1.50 - 7.00 K/mcL LAB HEMETOLOGY METHOD 09/23/2024 6:48 AM EST [facility] Lymphocytes Absolute 1.20 1.00 - 5.00 K/mcL LAB HEMETOLOGY METHOD 09/23/2024 6:48 AM EST [facility] Monocytes Absolute 1.04(H) 0.20 - 1.00 K/mcL LAB HEMETOLOGY METHOD 09/23/2024 6:48 AM EST [facility] Eosinophils Absolute 0.00 0.00 - 0.50 K/mcL LAB HEMETOLOGY METHOD 09/23/2024 6:48 AM EST [facility] Basophils Absolute 0.03 0.00 - 0.20 K/mcL LAB HEMETOLOGY METHOD 09/23/2024 6:48 AM EST [facility] Immature Granulocytes Absolute 0.17(H) 0.00 - 0.03 K/mcL LAB HEMETOLOGY METHOD 09/23/2024 6:48 AM [facility] Blood Venous blood specimen / Unknown Venipuncture / Unknown 09/23/2024 5:30 AM EST 09/23/2024 6:32 AM EST Abran JOSEPH LAB BLOOD ORDERAB LES [facility] [address] [place] [address], * (ABNORMAL) Basic metabolic panel (09/23/2024 5:30 AM EST) Sodium 143 133 - 145 mmol/L LAB CHEMISTRY METHOD 09/23/2024 7:38 AM EST [facility] Potassium 3.8 3.5 - 5.5 mmol/L LAB CHEMISTRY METHOD 09/23/2024 7:38 AM [facility] Chloride 109 96 - 110 mmol/L LAB CHEMISTRY METHOD 09/23/2024 7:38 AM [facility] CO2 25 21 - 32 mmol/L LAB CHEMISTRY METHOD 09/23/2024 7:38 AM [facility] Anion Gap 9 3 - 11 LAB CHEMISTRY METHOD 09/23/2024 7:38 AM [facility] Glucose 114(H) 70 - 100 mg/dL LAB CHEMISTRY METHOD 09/23/2024 7:38 AM [facility] BUN 10 5 - 25 mg/dL LAB CHEMISTRY METHOD 09/23/2024 7:38 AM [facility] Creatinine 0.36(L) 0.50 - 1.10 mg/dL LAB CHEMISTRY METHOD 09/23/2024 7:38 AM [facility] eGFR 105 >=60 mL/min/1. 73m2 LAB CHEMISTRY METHOD 09/23/2024 7:38 AM [facility] Comment:Calculation based on the??Chronic Kidney Disease Epidemiology Collaboration (CKD-EPI) equation refit??without adjustment for race. BUN/Creatinine Ratio 27.8 LAB CHEMISTRY METHOD 09/23/2024 7:38 AM [facility] Calcium 8.5 8.5 - 10.5 mg/dL LAB CHEMISTRY METHOD 09/23/2024 7:38 AM [facility] Blood Venous blood specimen / Unknown Venipuncture / Unknown 09/23/2024 5:30 AM EST 09/23/2024 6:32 AM EST Abran JOSEPH LAB BLOOD ORDERAB LES [facility] [address] [place] [address], * POCT Glucose, blood (09/22/2024 9:12 PM EST) Glucose POCT 96 70 - 100 mg/dL 09/22/2024 9:13 PM EST [facility] Blood Capillary blood specimen / Unknown 09/22/2024 9:12 PM EST 09/22/2024 9:14 PM EST Bernardo Alcantara MD LAB POINT OF CARE TE ST DOCKED DEVICE UNSOLICITED RESULTS [facility] [address] [place] [address], [place] [phone] * POCT Glucose, blood (09/22/2024 5:07 PM EST) Glucose POCT 100 70 - 100 mg/dL 09/22/2024 5:07 PM EST [facility] Blood Capillary blood specimen / Unknown 09/22/2024 5:07 PM EST 09/22/2024 5:08 PM EST Bernardo Alcantara MD LAB POINT OF CARE TE ST DOCKED DEVICE UNSOLICITED RESULTS Performing Organization Address City/[facility]/ZIP Co de Phone Number [facility] [address] [place] [address], [place] [phone] * POCT Glucose, blood (09/22/2024 12:38 PM EST) Glucose POCT 92 70 - 100 mg/dL 09/22/2024 3:11 PM EST [facility] Blood Capillary blood specimen / Unknown 09/22/2024 12:38 PM EST 09/22/2024 3:12 PM EST Bernardo Alcantara MD LAB POINT OF CARE TE ST DOCKED DEVICE UNSOLICITED RESULTS Performing Organization Address City/[facility]/ZIP Co de Phone Number [facility] [address] [place] [address], [place] [phone] * POCT Glucose, blood (09/22/2024 8:21 AM EST) Pathologist [facility] Glucose POCT 85 70 - 100 mg/dL 09/22/2024 8:22 AM [facility] Blood Capillary blood specimen / Unknown 09/22/2024 8:21 AM EST 09/22/2024 8:23 AM EST Bernardo Alcantara MD LAB POINT OF CARE TE ST DOCKED DEVICE UNSOLICITED RESULTS [facility] [address] [place] [address], * (ABNORMAL) CBC auto differential (09/22/2024 5:59 AM EST) Pathologist [facility] WBC 13.0(H) 4.8 - 10.8 K/mcL LAB HEMETOLOGY METHOD 09/22/2024 7:21 AM [facility] RBC 3.50(L) 3.80 - 4.80 M/mcL LAB HEMETOLOGY METHOD 09/22/2024 7:21 AM [facility] Hemoglobin 7.8(L) 11.5 - 16.0 g/dL LAB HEMETOLOGY METHOD 09/22/2024 7:21 AM [facility] Hematocrit 25.7(L) 35.0 - 47.0 % LAB HEMETOLOGY METHOD 09/22/2024 7:21 AM [facility] MCV 73.0(L) 79.0 - 98.0 FL LAB HEMETOLOGY METHOD 09/22/2024 7:21 AM [facility] MCH 22.2(L) 27.0 - 32.0 pcg LAB HEMETOLOGY METHOD 09/22/2024 7:21 AM [facility] MCHC 30.4(L) 32.0 - 37.0 g/dL LAB HEMETOLOGY METHOD 09/22/2024 7:21 AM [facility] RDW 21.6(H) 11.0 - 15.0 % LAB HEMETOLOGY METHOD 09/22/2024 7:21 AM [facility] Platelets 595(H) 130 - 400 K/mcL LAB HEMETOLOGY METHOD 09/22/2024 7:21 AM [facility] MPV 9.3 7.0 - 11.0 FL LAB HEMETOLOGY METHOD 09/22/2024 7:21 AM [facility] NRBC 0.0 <1.0 % LAB HEMETOLOGY METHOD 09/22/2024 7:21 AM [facility] NRBC Absolute 0.00 <0.10 K/mcL LAB HEMETOLOGY METHOD 09/22/2024 7:21 AM [facility] Neutrophils Relative 84.3 % LAB HEMETOLOGY METHOD 09/22/2024 7:21 AM [facility] Lymphocytes Relative 7.7 % LAB HEMETOLOGY METHOD 09/22/2024 7:21 AM [facility] Monocytes Relative 6.8 % LAB HEMETOLOGY METHOD 09/22/2024 7:21 AM [facility] Eosinophils Relative 0.0 % LAB HEMETOLOGY METHOD 09/22/2024 7:21 AM [facility] Basophils Relative 0.1 % LAB HEMETOLOGY METHOD 09/22/2024 7:21 AM [facility] Immature Granulocytes Relative 1.1 % LAB HEMETOLOGY METHOD 09/22/2024 7:21 AM [facility] Neutrophils Absolute 10.99(H) 1.50 - 7.00 K/mcL LAB HEMETOLOGY METHOD 09/22/2024 7:21 AM [facility] Lymphocytes Absolute 1.01 1.00 - 5.00 K/mcL LAB HEMETOLOGY METHOD 09/22/2024 7:21 AM EST [facility] Monocytes Absolute 0.89 0.20 - 1.00 K/mcL LAB HEMETOLOGY METHOD 09/22/2024 7:21 AM EST [facility] Eosinophils Absolute 0.00 0.00 - 0.50 K/mcL LAB HEMETOLOGY METHOD 09/22/2024 7:21 AM EST [facility] Basophils Absolute 0.01 0.00 - 0.20 K/mcL LAB HEMETOLOGY METHOD 09/22/2024 7:21 AM [facility] Immature Granulocytes Absolute 0.14(H) 0.00 - 0.03 K/mcL LAB HEMETOLOGY METHOD 09/22/2024 7:21 AM [facility] Blood Venous blood specimen / Unknown Venipuncture / Unknown 09/22/2024 5:59 AM EST 09/22/2024 7:03 AM EST Abran JOSEPH LAB BLOOD ORDERAB LES [facility] [address] [place] [address], * (ABNORMAL) CBC - Every 3 Days (09/22/2024 5:59 AM EST) WBC 13.0(H) 4.8 - 10.8 K/mcL LAB HEMETOLOGY METHOD 09/22/2024 7:21 AM [facility] RBC 3.50(L) 3.80 - 4.80 M/mcL LAB HEMETOLOGY METHOD 09/22/2024 7:21 AM [facility] Hemoglobin 7.8(L) 11.5 - 16.0 g/dL LAB HEMETOLOGY METHOD 09/22/2024 7:21 AM [facility] Hematocrit 25.7(L) 35.0 - 47.0 % LAB HEMETOLOGY METHOD 09/22/2024 7:21 AM EST [facility] MCV 73.0(L) 79.0 - 98.0 FL LAB HEMETOLOGY METHOD 09/22/2024 7:21 AM EST [facility] MCH 22.2(L) 27.0 - 32.0 pcg LAB HEMETOLOGY METHOD 09/22/2024 7:21 AM EST [facility] MCHC 30.4(L) 32.0 - 37.0 g/dL LAB HEMETOLOGY METHOD 09/22/2024 7:21 AM EST [facility] RDW 21.6(H) 11.0 - 15.0 % LAB HEMETOLOGY METHOD 09/22/2024 7:21 AM [facility] Platelets 595(H) 130 - 400 K/mcL LAB HEMETOLOGY METHOD 09/22/2024 7:21 AM EST [facility] MPV 9.3 7.0 - 11.0 FL LAB HEMETOLOGY METHOD 09/22/2024 7:21 AM EST [facility] NRBC 0.0 <1.0 % LAB HEMETOLOGY METHOD 09/22/2024 7:21 AM EST [facility] NRBC Absolute 0.00 <0.10 K/mcL LAB HEMETOLOGY METHOD 09/22/2024 7:21 AM EST [facility] Blood Venous blood specimen / Unknown Venipuncture / Unknown 09/22/2024 5:59 AM EST 09/22/2024 7:03 AM EST Abran JOSEPH LAB BLOOD ORDERAB LES [facility] [address] [place] [address], * (ABNORMAL) Basic metabolic panel (09/22/2024 5:59 AM EST) Sodium 142 133 - 145 mmol/L LAB CHEMISTRY METHOD 09/22/2024 8:50 AM [facility] Potassium 3.5 3.5 - 5.5 mmol/L LAB CHEMISTRY METHOD 09/22/2024 8:50 AM [facility] Chloride 106 96 - 110 mmol/L LAB CHEMISTRY METHOD 09/22/2024 8:50 AM [facility] CO2 22 21 - 32 mmol/L LAB CHEMISTRY METHOD 09/22/2024 8:50 AM [facility] Anion Gap 14(H) 3 - 11 LAB CHEMISTRY METHOD 09/22/2024 8:50 AM [facility] Glucose 76 70 - 100 mg/dL LAB CHEMISTRY METHOD 09/22/2024 8:50 AM [facility] Comment:Lipemia present BUN 9 5 - 25 mg/dL LAB CHEMISTRY METHOD 09/22/2024 8:50 AM [facility] Creatinine 0.22(L) 0.50 - 1.10 mg/dL LAB CHEMISTRY METHOD 09/22/2024 8:50 AM [facility] eGFR 119 >=60 mL/min/1. 73m2 LAB CHEMISTRY METHOD 09/22/2024 8:50 AM [facility] Comment:Calculation based on the??Chronic Kidney Disease Epidemiology Collaboration (CKD-EPI) equation refit??without adjustment for race. BUN/Creatinine Ratio 40.9 LAB CHEMISTRY METHOD 09/22/2024 8:50 AM [facility] Calcium 8.4(L) 8.5 - 10.5 mg/dL LAB CHEMISTRY METHOD 09/22/2024 8:50 AM [facility] Blood Venous blood specimen / Unknown Venipuncture / Unknown 09/22/2024 5:59 AM EST 09/22/2024 7:07 AM EST Abran JOSEPH LAB BLOOD ORDERAB LES [facility] [address] [place] [address], [place] [phone] * POCT Glucose, blood (09/21/2024 8:09 PM EST) Glucose POCT 92 70 - 100 mg/dL 09/21/2024 8:10 PM EST [facility] Blood Capillary blood specimen / Unknown 09/21/2024 8:09 PM EST 09/21/2024 8:11 PM EST Bernardo Alcantara MD LAB POINT OF CARE TE ST DOCKED DEVICE UNSOLICITED RESULTS Performing Organization Address [facility]/ZIP Co de Phone Number [facility] [address] [place] [address], [place] [phone] * POCT Glucose, blood (09/21/2024 6:45 PM EST) Glucose POCT 78 70 - 100 mg/dL 09/21/2024 6:45 PM EST [facility] Blood Capillary blood specimen / Unknown 09/21/2024 6:45 PM EST 09/21/2024 6:47 PM EST Bernardo Alcantara MD LAB POINT OF CARE TE ST DOCKED DEVICE UNSOLICITED RESULTS Performing Organization Address City/[facility]/ZIP Co de Phone Number [facility] [address] [place] [address], [place] [phone] * POCT Glucose, blood (09/21/2024 12:20 PM EST) Glucose POCT 88 70 - 100 mg/dL 09/21/2024 12:22 PM EST [facility] Blood Capillary blood specimen / Unknown 09/21/2024 12:20 PM EST 09/21/2024 12:23 PM EST Bernardo Alcantara MD LAB POINT OF CARE TE ST DOCKED DEVICE UNSOLICITED RESULTS Performing Organization Address [facility]/ZIP Co de Phone Number [facility] [address] [place] [address], [place] [phone] * ECG 12 lead (09/21/2024 10:37 AM EST) Ventricular Rate ECG 88 BPM GEMUSE Atrial Rate 88 BPM GEMUSE P-R Interval 146 ms GEMUSE QRS Duration 92 ms GEMUSE Q-T Interval 380 ms GEMUSE QTc 459 ms GEMUSE P Wave [place] 40 degrees GEMUSE R [place] 1 degrees GEMUSE T [place] 37 degrees GEMUSE ECG Interpretation Sinus rhythm [...] Abran JOSEPH ECG ORDERABLES Performing Organization Address [facility] de Phone Number GEMUSE * POCT Glucose, blood (09/21/2024 9:17 AM EST) Glucose POCT 73 70 - 100 mg/dL 09/21/2024 9:17 AM EST [facility] Blood Capillary blood specimen / Unknown 09/21/2024 9:17 AM EST 09/21/2024 9:19 AM EST Bernrado Alcantara MD LAB POINT OF CARE TE ST DOCKED DEVICE UNSOLICITED RESULTS Performing Organization Address [facility] Co de Phone Number [facility] [address] [place] [address], [place] [phone] * (ABNORMAL) CBC auto differential (09/21/2024 6:22 AM EST) [facility] WBC 17.6(H) 4.8 - 10.8 K/mcL LAB HEMETOLOGY METHOD 09/21/2024 8:37 AM [facility] RBC 3.40(L) 3.80 - 4.80 M/mcL LAB HEMETOLOGY METHOD 09/21/2024 8:37 AM [facility] Hemoglobin 7.6(L) 11.5 - 16.0 g/dL LAB HEMETOLOGY METHOD 09/21/2024 8:37 AM [facility] Hematocrit 25.0(L) 35.0 - 47.0 % LAB HEMETOLOGY METHOD 09/21/2024 8:37 AM [facility] MCV 73.3(L) 79.0 - 98.0 FL LAB HEMETOLOGY METHOD 09/21/2024 8:37 AM [facility] MCH 22.3(L) 27.0 - 32.0 pcg LAB HEMETOLOGY METHOD 09/21/2024 8:37 AM [facility] MCHC 30.4(L) 32.0 - 37.0 g/dL LAB HEMETOLOGY METHOD 09/21/2024 8:37 AM [facility] RDW 21.3(H) 11.0 - 15.0 % LAB HEMETOLOGY METHOD 09/21/2024 8:37 AM [facility] Platelets 584(H) 130 - 400 K/mcL LAB HEMETOLOGY METHOD 09/21/2024 8:37 AM [facility] MPV 9.4 7.0 - 11.0 FL LAB HEMETOLOGY METHOD 09/21/2024 8:37 AM [facility] NRBC 0.0 <1.0 % LAB HEMETOLOGY METHOD 09/21/2024 8:37 AM [facility] NRBC Absolute 0.00 <0.10 K/mcL LAB HEMETOLOGY METHOD 09/21/2024 8:37 AM [facility] Neutrophils Relative 87.4 % LAB HEMETOLOGY METHOD 09/21/2024 8:37 AM [facility] Lymphocytes Relative 7.3 % LAB HEMETOLOGY METHOD 09/21/2024 8:37 AM [facility] Monocytes Relative 4.6 % LAB HEMETOLOGY METHOD 09/21/2024 8:37 AM [facility] Eosinophils Relative 0.0 % LAB HEMETOLOGY METHOD 09/21/2024 8:37 AM [facility] Basophils Relative 0.1 % LAB HEMETOLOGY METHOD 09/21/2024 8:37 AM [facility] Immature Granulocytes Relative 0.6 % LAB HEMETOLOGY METHOD 09/21/2024 8:37 AM [facility] Neutrophils Absolute 15.41(H) 1.50 - 7.00 K/mcL LAB HEMETOLOGY METHOD 09/21/2024 8:37 AM [facility] Lymphocytes Absolute 1.29 1.00 - 5.00 K/mcL LAB HEMETOLOGY METHOD 09/21/2024 8:37 AM [facility] Monocytes Absolute 0.81 0.20 - 1.00 K/mcL LAB HEMETOLOGY METHOD 09/21/2024 8:37 AM [facility] Eosinophils Absolute 0.00 0.00 - 0.50 K/mcL LAB HEMETOLOGY METHOD 09/21/2024 8:37 AM [facility] Basophils Absolute 0.02 0.00 - 0.20 K/mcL LAB HEMETOLOGY METHOD 09/21/2024 8:37 AM [facility] Immature Granulocytes Absolute 0.11(H) 0.00 - 0.03 K/mcL LAB HEMETOLOGY METHOD 09/21/2024 8:37 AM [facility] Blood Venous blood specimen / Unknown Venipuncture / Unknown 09/21/2024 6:22 AM EST 09/21/2024 7:52 AM EST Abran JOSEPH LAB BLOOD ORDERAB LES [facility] [address] [place] [address], * (ABNORMAL) Basic metabolic panel (09/21/2024 6:22 AM EST) [facility] Sodium 140 133 - 145 mmol/L LAB CHEMISTRY METHOD 09/21/2024 8:24 AM [facility] Potassium 3.8 3.5 - 5.5 mmol/L LAB CHEMISTRY METHOD 09/21/2024 8:24 AM [facility] Chloride 104 96 - 110 mmol/L LAB CHEMISTRY METHOD 09/21/2024 8:24 AM [facility] CO2 25 21 - 32 mmol/L LAB CHEMISTRY METHOD 09/21/2024 8:24 AM [facility] Anion Gap 11 3 - 11 LAB CHEMISTRY METHOD 09/21/2024 8:24 AM [facility] Glucose 69(L) 70 - 100 mg/dL LAB CHEMISTRY METHOD 09/21/2024 8:24 AM [facility] BUN 16 5 - 25 mg/dL LAB CHEMISTRY METHOD 09/21/2024 8:24 AM [facility] Creatinine 0.20(L) 0.50 - 1.10 mg/dL LAB CHEMISTRY METHOD 09/21/2024 8:24 AM [facility] eGFR 121 >=60 mL/min/1. 73m2 LAB CHEMISTRY METHOD 09/21/2024 8:24 AM [facility] Comment:Calculation based on the??Chronic Kidney Disease Epidemiology Collaboration (CKD-EPI) equation refit??without adjustment for race. BUN/Creatinine Ratio 80.0 LAB CHEMISTRY METHOD 09/21/2024 8:24 AM EST [facility] Calcium 8.0(L) 8.5 - 10.5 mg/dL LAB CHEMISTRY METHOD 09/21/2024 8:24 AM EST [facility] Blood Venous blood specimen / Unknown Venipuncture / Unknown 09/21/2024 6:22 AM EST 09/21/2024 7:53 AM EST Abran JOSEPH LAB BLOOD ORDERAB LES [facility]) [facility] [address] [place] [address], * MR Thoracic Spine wo Contrast (09/20/2024 7:21 PM EST) Anatomical Region Laterality Modality T-spine, Spine Magnetic Resonan ce 09/21/2024 8:27 AM EST Impressions 09/21/2024 8:47 AM EST 1. ??No convincing evidence of discitis/osteomyelitis. 2. ??Chronic endplate fracture deformities at T5, L1, and L3. ??Exaggerated thoracic kyphosis. 3. ??Bilateral pleural effusions. -------- FINAL REPORT -------- Dictated By: Gabriel Arguelles Dictated Date: 09/21/2024 08:27 ET Assigned Physician: Gabriel Arguelles Reviewed and Electronically Signed By: Gabriel Arguelles Signed Date: 09/21/2024 08:47 ET Workstation ID: [id number] Transcribed By: Self Edit Transcribed Date: 09/21/2024 [...] ??No visible epidural fluid collection. Procedure Note Gabriel Arguelles MD - 09/21/2024 PROCEDURE: Noncontrast MRI [...] effusions. -------- FINAL REPORT -------- Dictated By: Snodgress, Gabriel Dictated Date: 09/21/2024 08:27 ET Assigned Physician: Gabriel Arguelles Reviewed and Electronically Signed By: Gabriel Arguelles Signed Date: 09/21/2024 08:47 ET Workstation ID: [id number] Transcribed By: Self Edit Transcribed Date: 09/21/2024 08:27 ET Abran JOSEPH IMG MRI PROCEDURE S * (ABNORMAL) RBC morphology review (09/20/2024 8:38 AM EST) Pathologist [facility] Rbc Morphology See comment( A) Consistent with indices, Normal for LAB HEMETOLOGY METHOD 09/20/2024 10:07 AM EST [facility] Comment:RBC: Morphology agre es with CBC Platelet Morphology - WAM See Note(A) Normal LAB HEMETOLOGY METHOD 09/20/2024 10:07 AM EST [facility] Comment:PLT: Normal Blood Venous blood specimen / Unknown Venipuncture / Unknown 09/20/2024 8:38 AM EST 09/20/2024 9:05 AM EST Abran JOSEPH LAB BLOOD ORDERAB LES [facility] [address] [place] [address], * (ABNORMAL) CBC auto differential (09/20/2024 8:38 AM EST) Pathologist [facility] WBC 28.2(H) 4.8 - 10.8 K/mcL LAB HEMETOLOGY METHOD 09/20/2024 10:07 AM EST [facility] RBC 3.90 3.80 - 4.80 M/mcL LAB HEMETOLOGY METHOD 09/20/2024 10:07 AM EST [facility] Hemoglobin 8.8(L) 11.5 - 16.0 g/dL LAB HEMETOLOGY METHOD 09/20/2024 10:07 AM EST [facility] Hematocrit 29.5(L) 35.0 - 47.0 % LAB HEMETOLOGY METHOD 09/20/2024 10:07 AM [facility] MCV 75.4(L) 79.0 - 98.0 FL LAB HEMETOLOGY METHOD 09/20/2024 10:07 AM [facility] MCH 22.5(L) 27.0 - 32.0 pcg LAB HEMETOLOGY METHOD 09/20/2024 10:07 AM [facility] MCHC 29.8(L) 32.0 - 37.0 g/dL LAB HEMETOLOGY METHOD 09/20/2024 10:07 AM [facility] RDW 21.6(H) 11.0 - 15.0 % LAB HEMETOLOGY METHOD 09/20/2024 10:07 AM [facility] Platelets 611(H) 130 - 400 K/mcL LAB HEMETOLOGY METHOD 09/20/2024 10:07 AM [facility] MPV 9.1 7.0 - 11.0 FL LAB HEMETOLOGY METHOD 09/20/2024 10:07 AM [facility] NRBC 0.0 <1.0 % LAB HEMETOLOGY METHOD 09/20/2024 10:07 AM [facility] NRBC Absolute 0.00 <0.10 K/mcL LAB HEMETOLOGY METHOD 09/20/2024 10:07 AM [facility] Neutrophils Relative 90.2 % LAB HEMETOLOGY METHOD 09/20/2024 10:07 AM [facility] Comment:This is an appended report. These results have been appended to a previously preliminary verified report. Lymphocytes Relative 5.3 % LAB HEMETOLOGY METHOD 09/20/2024 10:07 AM [facility] Comment:This is an appended report. These results have been appended to a previously preliminary verified report. Monocytes Relative 3.5 % LAB HEMETOLOGY METHOD 09/20/2024 10:07 AM [facility] Comment:This is an appended report. These results have been appended to a previously preliminary verified report. Eosinophils Relative 0.0 % LAB HEMETOLOGY METHOD 09/20/2024 10:07 AM [facility] Comment:This is an appended report. These results have been appended to a previously preliminary verified report. Basophils Relative 0.1 % LAB HEMETOLOGY METHOD 09/20/2024 10:07 AM [facility] Comment:This is an appended report. These results have been appended to a previously preliminary verified report. Immature Granulocytes Relative 0.9 % LAB HEMETOLOGY METHOD 09/20/2024 10:07 AM [facility] Comment:This is an appended report. These results have been appended to a previously preliminary verified report. Neutrophils Absolute 25.37(H) 1.50 - 7.00 K/mcL LAB HEMETOLOGY METHOD 09/20/2024 10:07 AM [facility] Comment:This is an appended report. These results have been appended to a previously preliminary verified report. Lymphocytes Absolute 1.50 1.00 - 5.00 K/mcL LAB HEMETOLOGY METHOD 09/20/2024 10:07 AM [facility] Comment:This is an appended report. These results have been appended to a previously preliminary verified report. Monocytes Absolute 1.00 0.20 - 1.00 K/mcL LAB HEMETOLOGY METHOD 09/20/2024 10:07 AM [facility] Comment:This is an appended report. These results have been appended to a previously preliminary verified report. Eosinophils Absolute 0.00 0.00 - 0.50 K/mcL LAB HEMETOLOGY METHOD 09/20/2024 10:07 AM [facility] Comment:This is an appended report. These results have been appended to a previously preliminary verified report. Basophils Absolute 0.04 0.00 - 0.20 K/mcL LAB HEMETOLOGY METHOD 09/20/2024 10:07 AM EST [facility] Comment:This is an appended report. These results have been appended to a previously preliminary verified report. Immature Granulocytes Absolute 0.26(H) 0.00 - 0.03 K/mcL LAB HEMETOLOGY METHOD 09/20/2024 10:07 AM EST [facility] Comment:This is an appended report. These results have been appended to a previously preliminary verified report. Blood Venous blood specimen / Unknown Venipuncture / Unknown 09/20/2024 8:38 AM EST 09/20/2024 9:05 AM EST Abran JOSEPH LAB BLOOD ORDERAB LES Performing Organization Address City/[facility]/ZIP Co de Phone Number [facility] [address] [place] [address], [place] [phone] * (ABNORMAL) Sedimentation rate (09/20/2024 8:38 AM EST) Sed Rate 121(H) 0 - 30 mm/hr LAB HEMETOLOGY METHOD 09/20/2024 9:31 AM EST [facility] Blood Venous blood specimen / Unknown Venipuncture / Unknown 09/20/2024 8:38 AM EST 09/20/2024 9:05 AM EST Emiliano JOSEPH LAB BLOOD ORDERABLE S [facility] [address] [place] [address], [place] [phone] * POCT Glucose, blood (09/20/2024 8:01 AM EST) Glucose POCT 99 70 - 100 mg/dL 09/20/2024 8:05 AM EST [facility] Blood Capillary blood specimen / Unknown 09/20/2024 8:01 AM EST 09/20/2024 8:06 AM EST Bernardo Alcantara MD LAB POINT OF CARE TE ST DOCKED DEVICE UNSOLICITED RESULTS [facility] [address] [place] [address], [place] [phone] * (ABNORMAL) C-reactive protein (09/20/2024 5:43 AM EST) [facility] C-Reactive Protein 15.60(H) <=0.50 mg/dL LAB CHEMISTRY METHOD 09/20/2024 7:18 AM EST [facility] Blood Venous blood specimen / Unknown Venipuncture / Unknown 09/20/2024 5:43 AM EST 09/20/2024 6:38 AM EST Emiliano JOSEPH LAB BLOOD ORDERABLE S [facility] [address] [place] [address], [place] [phone] * (ABNORMAL) Basic metabolic panel (09/20/2024 5:43 AM EST) [facility] Sodium 137 133 - 145 mmol/L LAB CHEMISTRY METHOD 09/20/2024 7:21 AM [facility] Potassium 4.3 3.5 - 5.5 mmol/L LAB CHEMISTRY METHOD 09/20/2024 7:21 AM [facility] Chloride 105 96 - 110 mmol/L LAB CHEMISTRY METHOD 09/20/2024 7:21 AM [facility] CO2 22 21 - 32 mmol/L LAB CHEMISTRY METHOD 09/20/2024 7:21 AM [facility] Anion Gap 10 3 - 11 LAB CHEMISTRY METHOD 09/20/2024 7:21 AM [facility] Glucose 88 70 - 100 mg/dL LAB CHEMISTRY METHOD 09/20/2024 7:21 AM [facility] BUN 21 5 - 25 mg/dL LAB CHEMISTRY METHOD 09/20/2024 7:21 AM EST [facility] Creatinine 0.25(L) 0.50 - 1.10 mg/dL LAB CHEMISTRY METHOD 09/20/2024 7:21 AM [facility] eGFR 115 >=60 mL/min/1. 73m2 LAB CHEMISTRY METHOD 09/20/2024 7:21 AM [facility] Comment:Calculation based on the??Chronic Kidney Disease Epidemiology Collaboration (CKD-EPI) equation refit??without adjustment for race. BUN/Creatinine Ratio 84.0 LAB CHEMISTRY METHOD 09/20/2024 7:21 AM [facility] Calcium 8.1(L) 8.5 - 10.5 mg/dL LAB CHEMISTRY METHOD 09/20/2024 7:21 AM [facility] Blood Venous blood specimen / Unknown Venipuncture / Unknown 09/20/2024 5:43 AM EST 09/20/2024 6:38 AM EST Emiliano JOSEPH LAB BLOOD ORDERABLE S [facility] [address] [place] [address], [place] [phone] * (ABNORMAL) POCT Glucose, blood (09/19/2024 11:48 PM EST) Glucose POCT 110(H) 70 - 100 mg/dL 09/19/2024 11:49 PM EST [facility] Blood Capillary blood specimen / Unknown 09/19/2024 11:48 PM EST 09/19/2024 11:50 PM EST Bernardo Alcantara MD LAB POINT OF CARE TE ST DOCKED DEVICE UNSOLICITED RESULTS Performing Organization Address City/[facility]/ZIP Co de Phone Number [facility] [address] [place] [address], [place] [phone] * POCT Glucose, blood (09/19/2024 4:46 PM EST) Glucose POCT 98 70 - 100 mg/dL 09/19/2024 4:47 PM EST [facility] Blood Capillary blood specimen / Unknown 09/19/2024 4:46 PM EST 09/19/2024 4:49 PM EST Bernardo Alcantara MD LAB POINT OF CARE TE ST DOCKED DEVICE UNSOLICITED RESULTS [facility] [address] [place] [address], [place] [phone] * Culture blood (09/19/2024 4:34 PM EST) Culture, Blood No growth at 5 days LAB MICROBIOLOGY METHOD 09/24/2024 5:01 PM EST [facility] Blood Specimen from bone marrow obtained by aspiration / Unknown Venipuncture / Unknown 09/19/2024 4:34 PM EST 09/19/2024 4:41 PM EST Abran JOSEPH LAB MICROBIOLOGY - GENERAL ORDERABLES Performing Organization Address City/[facility]/ZIP Co de Phone Number [facility] [address] [place] [address], [place] [phone] * Culture blood (09/19/2024 4:29 PM EST) Culture, Blood No growth at 5 days LAB MICROBIOLOGY METHOD 09/24/2024 5:01 PM EST [facility] Blood Venous blood specimen / Unknown Venipuncture / Unknown 09/19/2024 4:29 PM EST 09/19/2024 4:40 PM EST Abran JOSEPH LAB MICROBIOLOGY - GENERAL ORDERABLES [facility] [address] [place] [address], [place] [phone] * (ABNORMAL) POCT Glucose, blood (09/19/2024 4:13 PM EST) Glucose POCT 107(H) 70 - 100 mg/dL 09/19/2024 4:14 PM EST [facility] Blood Capillary blood specimen / Unknown 09/19/2024 4:13 PM EST 09/19/2024 4:15 PM EST Bernardo Alcantara MD LAB POINT OF CARE TE ST DOCKED DEVICE UNSOLICITED RESULTS Performing Organization Address [facility]/ZIP Co de Phone Number [facility] [address] [place] [address], [place] [phone] * POCT Glucose, blood (09/19/2024 12:51 PM EST) [facility] Glucose POCT 76 70 - 100 mg/dL 09/19/2024 12:52 PM EST [facility] POCT Comment RN Notified 09/19/2024 12:52 PM EST [facility] Blood Capillary blood specimen / Unknown 09/19/2024 12:51 PM EST 09/19/2024 12:53 PM EST Bernardo Alcantara MD LAB POINT OF CARE TE ST DOCKED DEVICE UNSOLICITED RESULTS Performing Organization Address City/[facility]/ZIP Co de Phone Number [facility] [address] [place] [address], [place] [phone] * (ABNORMAL) Culture body fluid with gram stain (09/19/2024 10:31 AM EST) Fluid Culture Methicillin-Sensiti ve Staphylococcus aureus(A) SANDRA 09/23/2024 10:05 AM EST [facility] Comment: The organism value for this result has been updated. These results have been appended to the previously preliminary verified report. Edited result: Previously reported as Staphylococcus aureus on 09/20/2024 at 1312 EST. Gram Stain Result No epithelial cells seen(A) 09/23/2024 10:05 AM EST [facility] Gram Stain Result Many Polymorphonuclear leukocytes(A) 09/23/2024 10:05 AM EST [facility] Gram Stain Result Few Gram positive cocci in clusters(A) 09/23/2024 10:05 AM EST [facility] Synovial Fluid Structure of right shoulder [...] Mcdowell MD LAB MICROBIOLOGY - GENERAL ORDERABLES [facility] [address] [place] [address], * (ABNORMAL) CBC auto differential (09/19/2024 8:08 AM EST) [facility] WBC 26.0(H) 4.8 - 10.8 K/mcL LAB HEMETOLOGY METHOD 09/19/2024 9:05 AM [facility] RBC 4.10 3.80 - 4.80 M/mcL LAB HEMETOLOGY METHOD 09/19/2024 9:05 AM [facility] Hemoglobin 9.1(L) 11.5 - 16.0 g/dL LAB HEMETOLOGY METHOD 09/19/2024 9:05 AM [facility] Hematocrit 29.8(L) 35.0 - 47.0 % LAB HEMETOLOGY METHOD 09/19/2024 9:05 AM [facility] MCV 72.9(L) 79.0 - 98.0 FL LAB HEMETOLOGY METHOD 09/19/2024 9:05 AM [facility] MCH 22.2(L) 27.0 - 32.0 pcg LAB HEMETOLOGY METHOD 09/19/2024 9:05 AM [facility] MCHC 30.5(L) 32.0 - 37.0 g/dL LAB HEMETOLOGY METHOD 09/19/2024 9:05 AM [facility] RDW 21.2(H) 11.0 - 15.0 % LAB HEMETOLOGY METHOD 09/19/2024 9:05 AM [facility] Platelets 552(H) 130 - 400 K/mcL LAB HEMETOLOGY METHOD 09/19/2024 9:05 AM [facility] MPV 9.1 7.0 - 11.0 FL LAB HEMETOLOGY METHOD 09/19/2024 9:05 AM [facility] NRBC 0.0 <1.0 % LAB HEMETOLOGY METHOD 09/19/2024 9:05 AM [facility] NRBC Absolute 0.00 <0.10 K/mcL LAB HEMETOLOGY METHOD 09/19/2024 9:05 AM [facility] Neutrophils Relative 91.0 % LAB HEMETOLOGY METHOD 09/19/2024 9:05 AM [facility] Comment:This is an appended report. These results have been appended to a previously preliminary verified report. Lymphocytes Relative 3.6 % LAB HEMETOLOGY METHOD 09/19/2024 9:05 AM [facility] Comment:This is an appended report. These results have been appended to a previously preliminary verified report. Monocytes Relative 4.4 % LAB HEMETOLOGY METHOD 09/19/2024 9:05 AM [facility] Comment:This is an appended report. These results have been appended to a previously preliminary verified report. Eosinophils Relative 0.1 % LAB HEMETOLOGY METHOD 09/19/2024 9:05 AM [facility] Comment:This is an appended report. These results have been appended to a previously preliminary verified report. Basophils Relative 0.2 % LAB HEMETOLOGY METHOD 09/19/2024 9:05 AM [facility] Comment:This is an appended report. These results have been appended to a previously preliminary verified report. Immature Granulocytes Relative 0.7 % LAB HEMETOLOGY METHOD 09/19/2024 9:05 AM [facility] Comment:This is an appended report. These results have been appended to a previously preliminary verified report. Neutrophils Absolute 23.65(H) 1.50 - 7.00 [facility]EM[facility] 09/19/2024 9:05 AM [facility] Comment:This is an appended report. These results have been appended to a previously preliminary verified report. Lymphocytes Absolute 0.94(L) 1.00 - 5.00 [facility] HEMETOLOGY METHOD 09/19/2024 9:05 AM [facility] Comment:This is an appended report. These results have been appended to a previously preliminary verified report. Monocytes Absolute 1.13(H) 0.20 - 1.00 K/mcL LAB HEMETOLOGY METHOD 09/19/2024 9:05 AM EST [facility] Comment:This is an appended report. These results have been appended to a previously preliminary verified report. Eosinophils Absolute 0.02 0.00 - 0.50 K[facility] 09/19/20[facility] 9:05 AM EST [facility] Comment:This is an appended report. These results have been appended to a previously preliminary verified report. Basophils Absolute 0.04 0.00 - 0.20 K[facility] 09/19/2024 9:05 AM EST [facility] Comment:This is an appended report. These results have been appended to a previously preliminary verified report. Immature Granulocytes Absolute 0.19(H) 0.00 - 0.03 K[facility] 09/19/2024 9:05 AM EST [facility] Comment:This is an appended report. These results have been appended to a previously preliminary verified report. Blood Venous blood specimen / Unknown Venipuncture / Unknown 09/19/2024 8:08 AM EST 09/19/2024 8:32 AM EST Abran Solis PA LAB BLOOD ORDERAB LES [facility] [address] [place] [address], * POCT Glucose, blood (09/19/2024 7:48 AM EST) Glucose POCT 81 70 - 100 mg/dL 09/19/2024 7:49 AM EST [facility] POCT Comment RN Notified 09/19/2024 7:49 AM EST [facility] Blood Capillary blood specimen / Unknown 09/19/2024 7:48 AM EST 09/19/2024 7:50 AM EST Bernardo Alcantara MD LAB POINT OF CARE TE ST DOCKED DEVICE UNSOLICITED RESULTS Performing Organization Address City/[facility]/ZIP Co de Phone Number [facility] [address] [place] [address], [place] [phone] * (ABNORMAL) Magnesium (09/19/2024 5:46 AM EST) Pathologist [facility] Magnesium 1.8(L) 1.9 - 2.6 mg/dL LAB CHEMISTRY METHOD 09/19/2024 7:36 AM EST [facility] Blood Venous blood specimen / Unknown Venipuncture / Unknown 09/19/2024 5:46 AM EST 09/19/2024 6:51 AM EST Abran JOSEPH LAB BLOOD ORDERAB LES Performing Organization Address [facility]/ZIP Co de Phone Number [facility] [address] [place] [address], [place] [phone] * (ABNORMAL) Comprehensive metabolic panel (09/19/2024 5:46 AM EST) [facility] Sodium 137 133 - 145 mmol/L LAB CHEMISTRY METHOD 09/19/2024 7:38 AM [facility] Potassium 3.9 3.5 - 5.5 mmol/L LAB CHEMISTRY METHOD 09/19/2024 7:38 AM [facility] Chloride 102 96 - 110 mmol/L LAB CHEMISTRY METHOD 09/19/2024 7:38 AM [facility] CO2 23 21 - 32 mmol/L LAB CHEMISTRY METHOD 09/19/2024 7:38 AM [facility] Anion Gap 12(H) 3 - 11 LAB CHEMISTRY METHOD 09/19/2024 7:38 AM [facility] Glucose 64(L) 70 - 100 mg/dL LAB CHEMISTRY METHOD 09/19/2024 7:38 AM [facility] BUN 12 5 - 25 mg/dL LAB CHEMISTRY METHOD 09/19/2024 7:38 AM [facility] Creatinine <0.15(L) 0.50 - 1.10 mg/dL LAB CHEMISTRY METHOD 09/19/2024 7:38 AM [facility] eGFR LAB CHEMISTRY METHOD 09/19/2024 7:38 AM [facility] Comment:Creatinine above or below reportable range; unable to calculate eGFR. BUN/Creatinine Ratio LAB CHEMISTRY METHOD 09/19/2024 7:38 AM [facility] Comment:Creatinine and/or Ur ea Nitrogen (BUN) above or below reportable range; unable to calculate BUN/Creatinine Ratio. Calcium 7.9(L) 8.5 - 10.5 mg/dL LAB CHEMISTRY METHOD 09/19/2024 7:38 AM [facility] AST (SGOT) 27 10 - 42 unit/L LAB CHEMISTRY METHOD 09/19/2024 7:38 AM [facility] ALT (SGPT) <6(L) 10 - 60 unit/L LAB CHEMISTRY METHOD 09/19/2024 7:38 AM [facility] Alkaline Phosphatase 100 42 - 121 unit/L LAB CHEMISTRY METHOD 09/19/2024 7:38 AM [facility] Total Protein 5.5(L) 6.0 - 8.0 g/dL LAB CHEMISTRY METHOD 09/19/2024 7:38 AM [facility] Albumin 1.5(L) 3.2 - 5.0 g/dL LAB CHEMISTRY METHOD 09/19/2024 7:38 AM [facility] Total Bilirubin 0.3 0.0 - 1.4 mg/dL LAB CHEMISTRY METHOD 09/19/2024 7:38 AM [facility] Blood Venous blood specimen / Unknown Venipuncture / Unknown 09/19/2024 5:46 AM EST 09/19/2024 6:51 AM EST Abran JOSEPH LAB BLOOD ORDERAB LES Performing Organization Address City/[facility]/ZIP Co de Phone Number [facility] [address] [place] [address], [place] [phone] * Culture blood (09/18/2024 5:59 PM EST) Culture, Blood No growth at 5 days LAB MICROBIOLOGY METHOD 09/23/2024 7:01 PM EST [facility] Blood Venous blood specimen / Unknown Venipuncture / Unknown 09/18/2024 5:59 PM EST 09/18/2024 5:59 PM EST Stacia Lewis MD LAB MICROBIOLOGY - G ENERAL ORDERABLES Performing Organization Address [facility]/ZIP Co de Phone Number [facility] [address] [place] [address], [place] [phone] * (ABNORMAL) TRANSTHORACIC ECHOCARDIOGRAM (TTE) COMPLETE W/ [...] 44 mL CV PACS Left At[facility] Minor [place] 5.1 cm CV PACS Left At[facility] Major [place] 4.2 cm CV PACS [place] Area Sys [...] Gradient 89 mmHg CV PACS MV Deceleration [place] 4.1 m/s2 CV PACS E Wave Deceleration [...] Signed Date: 09/19/2024 14:55 ET Workstation ID: [id number] Transcribed By: Self Edit Transcribed Date: 09/18/2024 13:09 ET Resident/PA/[employer] PROFESSOR: Rosaura Quintanilla Procedure Note Summer Sepulveda MD [...] Signed Date: 09/19/2024 14:55 ET Workstation ID: [id number] Transcribed By: Self Edit Transcribed Date: 09/18/2024 13:09 ET Resident/PA/[employer] PROFESSOR: Rosaura Quintanilla Rosaura JOSEPH IMG US PROCEDURES * (ABNORMAL) Culture body fluid with gram stain (09/18/2024 11:40 AM EST) Fluid Culture Methicillin-Sensiti ve Staphylococcus aureus(A) SANDRA 09/21/2024 11:05 AM [facility] Comment: The organism value for this result has been updated. These results have been appended to the previously preliminary verified report. Edited result: Previously reported as Staphylococcus aureus on 09/19/2024 at 1308 EST. Gram Stain Result Many Polymorphonuclear leukocytes(A) 09/21/2024 11:05 AM [facility] Gram Stain Result Few Gram positive cocci in clusters(A) 09/21/2024 11:05 AM [facility] Gram Stain Result No epithelial cells seen(A) 09/21/2024 11:05 AM [facility] Synovial Fluid Structure of right shoulder region / Unknown 09/18/2024 11:40 AM EST 09/18/2024 12:08 PM EST Narrative Organism Antibiotic Method Susceptibility Methicillin-Sensitive [...] ug/ml: Susceptible Methicillin-Sensitive Staphylococcus aureus Vancomycin SANDRA <=0.5 ug/ml: Susceptible Methicillin-Sensitive Staphylococcus aureus Tetracycline SANDRA <=1 ug/ml: Susceptible Methicillin-Sensitive Staphylococcus aureus Rifampin SANDRA <=0.5 ug/ml: Susceptible Methicillin-Sensitive Staphylococcus aureus Trimethoprim/Sulfamethoxazo le SANDRA <=10 ug/ml: Susceptible Rosaura JOSEPH LAB MICROBIOLOGY - G ENERAL ORDERABLES [facility] [address] [place] [address], * CT Chest/Abdomen/Pelvis w Contrast (09/18/2024 11:35 [...] L3. -------- FINAL REPORT -------- Dictated By: Gabriel Arguelles Dictated Date: 09/18/2024 11:43 ET Assigned Physician: Gabriel Arguelles Reviewed and Electronically Signed By: Gabriel Arguelles Signed Date: 09/18/2024 11:58 ET Workstation ID: [id number] Transcribed By: Self Edit Transcribed Date: 09/18/2024 [...] endplate fracture deformities/large Schmorl's nodes. Procedure Note Gabriel Arguelles MD - 09/18/2024 CT chest, abdomen, [...] L3. -------- FINAL REPORT -------- Dictated By: Gabriel Arguelles Dictated Date: 09/18/2024 11:43 ET Assigned Physician: Gabriel Arguelles Reviewed and Electronically Signed By: Gabriel Arguelles Signed Date: 09/18/2024 11:58 ET Workstation ID: [id number] Transcribed By: Self Edit Transcribed Date: 09/18/2024 11:52 ET Abran JOSEPH IMG CT PROCEDURES * (ABNORMAL) Culture blood (09/18/2024 9:31 AM EST) [facility] Culture, Blood Methicillin-Sens itive Staphylococcus aureus(AA) LAB MICROBIOLOGY METHOD 09/20/2024 9:31 AM EST [facility] Comment: Negative for PBP2a - indicates susceptible to Oxacillin FOR SUSCEPTIBILITIES, REFER TO PREVIOUS CULTURE FROM [id number]. The organism value for this result has been updated. These results have been appended to the previously preliminary verified report. Gram Stain Result Aerobic bottle Gram positive cocci in clusters(AA) 09/20/2024 9:31 AM EST [facility] Comment:This is an appended report. These results have been appended to a previously preliminary verified report. Blood Venous blood specimen / Unknown Venipuncture / Unknown 09/18/2024 9:31 AM EST 09/18/2024 9:36 AM EST Abran JOSEPH LAB MICROBIOLOGY - GENERAL ORDERABLES Performing Organization Address City/State/[facility] Co de Phone Number [facility] [address] [place] [address], * (ABNORMAL) Complete blood count (09/18/2024 8:13 AM EST) [facility] WBC 23.3(H) 4.8 - 10.8 K/mcL LAB HEMETOLOGY METHOD 09/18/2024 8:48 AM EST [facility] RBC 4.20 3.80 - 4.80 M/mcL LAB HEMETOLOGY METHOD 09/18/2024 8:48 AM EST [facility] Hemoglobin 9.4(L) 11.5 - 16.0 g/dL LAB HEMETOLOGY METHOD 09/18/2024 8:48 AM EST [facility] Hematocrit 30.0(L) 35.0 - 47.0 % LAB HEMETOLOGY METHOD 09/18/2024 8:48 AM EST [facility] MCV 71.8(L) 79.0 - 98.0 FL LAB HEMETOLOGY METHOD 09/18/2024 8:48 AM [facility] MCH 22.5(L) 27.0 - 32.0 pcg LAB HEMETOLOGY METHOD 09/18/2024 8:48 AM EST [facility] MCHC 31.3(L) 32.0 - 37.0 g/dL LAB HEMETOLOGY METHOD 09/18/2024 8:48 AM [facility] RDW 21.2(H) 11.0 - 15.0 % LAB HEMETOLOGY METHOD 09/18/2024 8:48 AM [facility] Platelets 403(H) 130 - 400 K/mcL LAB HEMETOLOGY METHOD 09/18/2024 8:48 AM EST [facility] MPV 9.6 7.0 - 11.0 FL LAB HEMETOLOGY METHOD 09/18/2024 8:48 AM EST [facility] NRBC 0.0 <1.0 % LAB HEMETOLOGY METHOD 09/18/2024 8:48 AM [facility] NRBC Absolute 0.00 <0.10 K/mcL LAB HEMETOLOGY METHOD 09/18/2024 8:48 AM [facility] Blood Venous blood specimen / Unknown Venipuncture / Unknown 09/18/2024 8:13 AM EST 09/18/2024 8:40 AM EST Dennis Hagan MD LAB BLOOD ORDERABLES [facility] [address] [place] [address], * (ABNORMAL) Basic metabolic panel (09/18/2024 8:13 AM EST) Sodium 133 133 - 145 mmol/L LAB CHEMISTRY METHOD 09/18/2024 9:08 AM [facility] Potassium 3.8 3.5 - 5.5 mmol/L LAB CHEMISTRY METHOD 09/18/2024 9:08 AM [facility] Chloride 101 96 - 110 mmol/L LAB CHEMISTRY METHOD 09/18/2024 9:08 AM [facility] CO2 22 21 - 32 mmol/L LAB CHEMISTRY METHOD 09/18/2024 9:08 AM [facility] Anion Gap 10 3 - 11 LAB CHEMISTRY METHOD 09/18/2024 9:08 AM [facility] Glucose 71 70 - 100 mg/dL LAB CHEMISTRY METHOD 09/18/2024 9:08 AM [facility] BUN 7 5 - 25 mg/dL LAB CHEMISTRY METHOD 09/18/2024 9:08 AM [facility] Creatinine 0.23(L) 0.50 - 1.10 mg/dL LAB CHEMISTRY METHOD 09/18/2024 9:08 AM [facility] eGFR 117 >=60 mL/min/1. 73m2 LAB CHEMISTRY METHOD 09/18/2024 9:08 AM [facility] Comment:Calculation based on the??Chronic Kidney Disease Epidemiology Collaboration (CKD-EPI) equation refit??without adjustment for race. BUN/Creatinine Ratio 30.4 LAB CHEMISTRY METHOD 09/18/2024 9:08 AM [facility] Calcium 8.0(L) 8.5 - 10.5 mg/dL LAB CHEMISTRY METHOD 09/18/2024 9:08 AM [facility] Blood Venous blood specimen / Unknown Venipuncture / Unknown 09/18/2024 8:13 AM EST 09/18/2024 8:40 AM EST Dennis Hagan MD LAB BLOOD ORDERABLES Performing Organization Address [facility]/ZIP Co de Phone Number [facility] [address] [place] [address], * (ABNORMAL) Troponin I high sensitivity (09/18/2024 2:59 AM EST) [facility] High Sensitivity Troponin I 72(H) <=54 ng/L LAB CHEMISTRY METHOD 09/18/2024 3:49 AM EST [facility] Blood Venous blood specimen / Unknown Venipuncture / Unknown 09/18/2024 2:59 AM EST 09/18/2024 3:06 AM EST Narrative [facility] - 09/18/2024 3:49 AM EST High levels of biotin in samples may falsely decrease hsTroponin values. ??Use caution when interpreting hsTroponin results in patients taking biotin who exhibit renal impairment (eGFR <60) or in patients taking more than 20 mg/day of biotin. Katty JOSEPH LAB BLOOD ORDER ADALID Performing Organization Address [facility] Co de Phone Number [facility] [address] [place] [address], * ECG 12 lead (09/18/2024 2:31 AM EST) [facility] Ventricular Rate ECG 120 BPM GEMUSE Atrial Rate 120 BPM GEMUSE P-R Interval 148 ms GEMUSE QRS Duration 88 ms GEMUSE Q-T Interval 318 ms GEMUSE QTc 449 ms GEMUSE P Wave [place] 58 degrees GEMUSE R [place] 6 degrees GEMUSE T [place] 29 degrees GEMUSE ECG Interpretation Sinus tachycardia Minimal voltage criteria for LVH, may be normal variant Borderline ECG When compared with ECG of 09-AUG-2024 02:15, Nonspecific T wave abnormality no longer evident in Anterior leads Confirmed by HARRIS AVILES ([id number]) on 09/18/2024 9:36:05 PM GEMUSE 09/18/2024 2:31 AM EST 09/18/2024 9:36 PM EST Katty JOSEPH ECG ORDERABLES Performing Organization Address City/[facility]/ZIP Co de Phone Number GEMUSE * (ABNORMAL) C-reactive protein (09/17/2024 11:23 PM EST) C-Reactive Protein 13.40(H) <=0.50 mg/dL LAB CHEMISTRY METHOD 09/18/2024 12:08 AM EST [facility] Blood Venous blood specimen / Unknown Venipuncture / Unknown 09/17/2024 11:23 PM EST 09/17/2024 11:37 PM EST Katty JOSEPH LAB BLOOD ORDER ADALID Performing Organization Address [facility] Co de Phone Number [facility] [address] [place] [address], [place] [phone] * (ABNORMAL) Sedimentation rate (09/17/2024 11:23 PM EST) Pathologist [facility] Sed Rate 125(H) 0 - 30 mm/hr LAB HEMETOLOGY METHOD 09/17/2024 11:42 PM EST [facility] Blood Venous blood specimen / Unknown Venipuncture / Unknown 09/17/2024 11:23 PM EST 09/17/2024 11:37 PM EST Katty JOSEPH LAB BLOOD ORDER ADALID Performing Organization Address [facility] Co de Phone Number [facility] [address] [place] [address], [place] [phone] * XR Chest 1 View (09/17/2024 11:18 PM EST) Anatomical Region Laterality Modality Body Radiographic Flaca ging 09/18/2024 8:23 AM EST Impressions 09/18/2024 8:25 AM EST Slightly improved aeration of the upper lungs. ??Small bilateral pleural effusions or pleural thickening. -------- FINAL REPORT -------- Dictated By: Gabriel Arguelles Dictated Date: 09/18/2024 08:23 ET Assigned Physician: Gabriel Arguelles Reviewed and Electronically Signed By: Gabrile Arguelles Signed Date: 09/18/2024 08:25 ET Workstation ID: [id number] Transcribed By: Self Edit Transcribed Date: 09/18/2024 [...] greater than left. ??Generalized osteopenia. Procedure Note Gabriel Arguelles MD - 09/18/2024 AP view of [...] thickening. -------- FINAL REPORT -------- Dictated By: Gabriel Arguelles Dictated Date: 09/18/2024 08:23 ET Assigned Physician: Gabriel Arguelles Reviewed and Electronically Signed By: Gabriel Arguelles Signed Date: 09/18/2024 08:25 ET Workstation ID: [id number] Transcribed By: Self Edit Transcribed Date: 09/18/2024 [...] Varner MD IMG CT PROCEDURES * (ABNORMAL) Sedimentation rate (09/17/2024 6:33 PM EST) Pathologist [facility] Sed Rate 121(H) 0 - 30 mm/hr LAB HEMETOLOGY METHOD 09/17/2024 7:04 PM EST [facility] Blood Venous blood specimen / Unknown Venipuncture / Unknown 09/17/2024 6:33 PM EST 09/17/2024 6:40 PM EST Rich Varner MD LAB BLOOD ORDERABLES [facility] [address] [place] [address], * (ABNORMAL) C-reactive protein (09/17/2024 6:33 PM EST) [facility] C-Reactive Protein 12.00(H) <=0.50 mg/dL LAB CHEMISTRY METHOD 09/17/2024 7:24 PM EST [facility] Blood Venous blood specimen / Unknown Venipuncture / Unknown 09/17/2024 6:33 PM EST 09/17/2024 6:40 PM EST Rich Varner MD LAB BLOOD ORDERABLES [facility] [address] [place] [address], * (ABNORMAL) CBC auto differential (09/17/2024 6:33 PM EST) WBC 19.8(H) 4.8 - 10.8 K/mcL LAB HEMETOLOGY METHOD 09/17/2024 6:48 PM [facility] RBC 4.00 3.80 - 4.80 M/mcL LAB HEMETOLOGY METHOD 09/17/2024 6:48 PM [facility] Hemoglobin 9.0(L) 11.5 - 16.0 g/dL LAB HEMETOLOGY METHOD 09/17/2024 6:48 PM [facility] Hematocrit 28.8(L) 35.0 - 47.0 % LAB HEMETOLOGY METHOD 09/17/2024 6:48 PM [facility] MCV 72.5(L) 79.0 - 98.0 FL LAB HEMETOLOGY METHOD 09/17/2024 6:48 PM [facility] MCH 22.7(L) 27.0 - 32.0 pcg LAB HEMETOLOGY METHOD 09/17/2024 6:48 PM [facility] MCHC 31.3(L) 32.0 - 37.0 g/dL LAB HEMETOLOGY METHOD 09/17/2024 6:48 PM [facility] RDW 20.8(H) 11.0 - 15.0 % LAB HEMETOLOGY METHOD 09/17/2024 6:48 PM [facility] Platelets 500(H) 130 - 400 K/mcL LAB HEMETOLOGY METHOD 09/17/2024 6:48 PM [facility] MPV 8.6 7.0 - 11.0 FL LAB HEMETOLOGY METHOD 09/17/2024 6:48 PM [facility] NRBC 0.0 <1.0 % LAB HEMETOLOGY METHOD 09/17/2024 6:48 PM [facility] NRBC Absolute 0.00 <0.10 K/mcL LAB HEMETOLOGY METHOD 09/17/2024 6:48 PM [facility] Neutrophils Relative 89.2 % LAB HEMETOLOGY METHOD 09/17/2024 6:48 PM [facility] Lymphocytes Relative 5.3 % LAB HEMETOLOGY METHOD 09/17/2024 6:48 PM [facility] Monocytes Relative 4.4 % LAB HEMETOLOGY METHOD 09/17/2024 6:48 PM [facility] Eosinophils Relative 0.2 % LAB HEMETOLOGY METHOD 09/17/2024 6:48 PM [facility] Basophils Relative 0.2 % LAB HEMETOLOGY METHOD 09/17/2024 6:48 PM [facility] Immature Granulocytes Relative 0.7 % LAB HEMETOLOGY METHOD 09/17/2024 6:48 PM [facility] Neutrophils Absolute 17.66(H) 1.50 - 7.00 K/mcL LAB HEMETOLOGY METHOD 09/17/2024 6:48 PM [facility] Lymphocytes Absolute 1.05 1.00 - 5.00 K/mcL LAB HEMETOLOGY METHOD 09/17/2024 6:48 PM [facility] Monocytes Absolute 0.86 0.20 - 1.00 K/mcL LAB HEMETOLOGY METHOD 09/17/2024 6:48 PM [facility] Eosinophils Absolute 0.03 0.00 - 0.50 K/mcL LAB HEMETOLOGY METHOD 09/17/2024 6:48 PM [facility] Basophils Absolute 0.03 0.00 - 0.20 K/mcL LAB HEMETOLOGY METHOD 09/17/2024 6:48 PM [facility] Immature Granulocytes Absolute 0.13(H) 0.00 - 0.03 K/mcL LAB HEMETOLOGY METHOD 09/17/2024 6:48 PM [facility] Blood Venous blood specimen / Unknown Venipuncture / Unknown 09/17/2024 6:33 PM EST 09/17/2024 6:40 PM EST Silvestre Kerr DO LAB BLOOD ORDERABLES [facility] [address] [place] [address], * (ABNORMAL) Comprehensive metabolic panel (09/17/2024 6:33 PM EST) Sodium 131(L) 133 - 145 mmol/L LAB CHEMISTRY METHOD 09/17/2024 7:20 PM [facility] Potassium 3.4(L) 3.5 - 5.5 mmol/L LAB CHEMISTRY METHOD 09/17/2024 7:20 PM [facility] Chloride 97 96 - 110 mmol/L LAB CHEMISTRY METHOD 09/17/2024 7:20 PM [facility] CO2 26 21 - 32 mmol/L LAB CHEMISTRY METHOD 09/17/2024 7:20 PM [facility] Anion Gap 8 3 - 11 LAB CHEMISTRY METHOD 09/17/2024 7:20 PM [facility] Glucose 81 70 - 100 mg/dL LAB CHEMISTRY METHOD 09/17/2024 7:20 PM [facility] BUN 9 5 - 25 mg/dL LAB CHEMISTRY METHOD 09/17/2024 7:20 PM [facility] Creatinine 0.18(L) 0.50 - 1.10 mg/dL LAB CHEMISTRY METHOD 09/17/2024 7:20 PM [facility] eGFR 125 >=60 mL/min/1. 73m2 LAB CHEMISTRY METHOD 09/17/2024 7:20 PM [facility] Comment:Calculation based on the??Chronic Kidney Disease Epidemiology Collaboration (CKD-EPI) equation refit??without adjustment for race. BUN/Creatinine Ratio 50.0 LAB CHEMISTRY METHOD 09/17/2024 7:20 PM [facility] Calcium 7.9(L) 8.5 - 10.5 mg/dL LAB CHEMISTRY METHOD 09/17/2024 7:20 PM [facility] AST (SGOT) 9(L) 10 - 42 unit/L LAB CHEMISTRY METHOD 09/17/2024 7:20 PM [facility] ALT (SGPT) <6(L) 10 - 60 unit/L LAB CHEMISTRY METHOD 09/17/2024 7:20 PM [facility] Alkaline Phosphatase 105 42 - 121 unit/L LAB CHEMISTRY METHOD 09/17/2024 7:20 PM EST [facility] Total Protein 5.8(L) 6.0 - 8.0 g/dL LAB CHEMISTRY METHOD 09/17/2024 7:20 PM [facility] Albumin 1.9(L) 3.2 - 5.0 g/dL LAB CHEMISTRY METHOD 09/17/2024 7:20 PM [facility] Total Bilirubin 0.4 0.0 - 1.4 mg/dL LAB CHEMISTRY METHOD 09/17/2024 7:20 PM [facility] Blood Venous blood specimen / Unknown Venipuncture / Unknown 09/17/2024 6:33 PM EST 09/17/2024 6:40 PM EST Silvestre Kerr DO LAB BLOOD ORDERABLES [facility] [address] [place] [address], * (ABNORMAL) Blood culture pathogens molecular study (09/17/2024 4:35 PM EST) Staphylococcus aureus Detected (A) Not Detected LAB MICROBIOLOGY METHOD 09/18/2024 7:17 AM EST [facility] Blood Venous blood specimen / Unknown Venipuncture / Unknown 09/17/2024 4:35 PM EST 09/17/2024 4:46 PM EST Silvestre Kerr DO LAB MICROBIOLOGY - G ENERAL ORDERABLES [facility] [address] [place] [address], * (ABNORMAL) Blood culture (09/17/2024 4:35 PM EST) [facility] Culture, Blood Methicillin-Sensi tive Staphylococcus aureus(AA) SANDRA 09/20/2024 9:15 AM EST [facility] Comment: Negative for PBP2a - indicates susceptible to Oxacillin The organism value for this result has been updated. These results have been appended to the previously preliminary verified report. Edited result: Previously reported as Staphylococcus aureus on 09/19/2024 at 0959 EST. Gram Stain Result Aerobic and Anaerobic bottles Gram positive cocci(AA) 09/20/2024 9:15 AM EST [facility] Comment: This is an appended report. These results have been appended to a previously preliminary verified report. Corrected result: Previously reported as Anaerobic bottle Gram positive cocci on 09/18/2024 at 0352 EST. Blood Venous blood specimen / Unknown Venipuncture / Unknown 09/17/2024 4:35 PM EST 09/17/2024 4:46 PM EST Narrative Organism Antibiotic Method Susceptibility Methicillin-Sensitive Staphylococcus aureus Benzylpenicillin SANDRA >=0.5 ug/ml: Resistant Methicillin-Sensitive Staphylococcus aureus Oxacillin SANDRA <=0.25 ug/ml: Susceptible Methicillin-Sensitive Staphylococcus aureus Gentamicin SANDRA <=0.5 ug/ml: Susceptible Methicillin-Sensitive Staphylococcus aureus Ciprofloxacin SANDRA <=0.5 ug/ml: Susceptible Methicillin-Sensitive Staphylococcus aureus Levofloxacin SANDRA 0.25 ug/ml: Susceptible Methicillin-Sensitive Staphylococcus aureus Moxifloxacin SANDRA <=0.25 ug/ml: Susceptible Methicillin-Sensitive Staphylococcus aureus Erythromycin SANDRA >=8 ug/ml: Resistant Methicillin-Sensitive Staphylococcus aureus Clindamycin SANDRA <=0.25 ug/ml: Resistant Methicillin-Sensitive Staphylococcus aureus Quinupristin/Dalfopristin SANDRA <=0.25 ug/ml: Susceptible Methicillin-Sensitive Staphylococcus aureus Linezolid SANDRA 2 ug/ml: Susceptible Methicillin-Sensitive Staphylococcus aureus Vancomycin SANDRA <=0.5 ug/ml: Susceptible Methicillin-Sensitive Staphylococcus aureus Tetracycline SANDRA <=1 ug/ml: Susceptible Methicillin-Sensitive Staphylococcus aureus Rifampin SANDRA <=0.5 ug/ml: Susceptible Methicillin-Sensitive Staphylococcus aureus Trimethoprim/Sulfamethoxazo le SANDRA <=10 ug/ml: Susceptible Silvestre Kerr DO LAB MICROBIOLOGY - G ENERAL ORDERABLES Performing Organization Address City/[facility]/ZIP Co de Phone Number [facility] [address] [place] [address], * Lactate (09/17/2024 4:35 PM EST) [facility] Lactate 1.4 0.4 - 2.0 mmol/L LAB CHEMISTRY METHOD 09/17/2024 5:13 PM EST [facility] Blood Venous blood specimen / Unknown Venipuncture / Unknown 09/17/2024 4:35 PM EST 09/17/2024 4:47 PM EST Silvestre RODRIGUEZ BLOOD ORDERABLES Performing Organization Address [facility]/ZIP Co de Phone Number [facility] [address] [place] [address], [place] [phone] * (ABNORMAL) Blood culture (09/17/2024 4:35 PM EST) [facility] Culture, Blood Staphylococcus aureus(AA) LAB MICROBIOLOGY METHOD 09/20/2024 9:17 AM EST [facility] Comment: Negative for PBP2a - indicates susceptible to Oxacillin FOR SUSCEPTIBILITIES, REFER TO PREVIOUS CULTURE FROM 09-17-24 at 1635. The organism value for this result has been updated. These results have been appended to the previously preliminary verified report. Gram Stain Result Aerobic and Anaerobic bottles Gram positive cocci(AA) 09/20/2024 9:17 AM EST [facility] Comment: This is an appended report. These results have been appended to a previously preliminary verified report. Corrected result: Previously reported as Anaerobic bottle Gram positive cocci on 09/18/2024 at 0452 EST. Blood Venipuncture / Unknown 09/17/2024 4:35 PM EST 09/17/2024 4:48 PM EST Silvestre Kerr DO LAB MICROBIOLOGY - G ENERAL ORDERABLES [facility] [address] [place] [address], * Respiratory virus panel molecular study (09/17/2024 4:06 PM EST) Adenovirus Detection by PCR Not Detected Not Detected LAB MICROBIOLOGY METHOD 09/17/2024 5:39 PM [facility] Influenza A PCR Not Detected Not Detected LAB MICROBIOLOGY METHOD 09/17/2024 5:39 PM [facility] Influenza B PCR Not Detected Not Detected LAB MICROBIOLOGY METHOD 09/17/2024 5:39 PM [facility] Coronavirus 229E Not Detected Not Detected LAB MICROBIOLOGY METHOD 09/17/2024 5:39 PM [facility] Coronavirus HKU1 Not Detected Not Detected LAB MICROBIOLOGY METHOD 09/17/2024 5:39 PM [facility] Coronavirus OC43 Not Detected Not Detected LAB MICROBIOLOGY METHOD 09/17/2024 5:39 PM [facility] Coronavirus NL63 Not Detected Not Detected LAB MICROBIOLOGY METHOD 09/17/2024 5:39 PM EST [facility] Parainfluenza Virus 1 Not Detected Not Detected LAB MICROBIOLOGY METHOD 09/17/2024 5:39 PM EST [facility] Parainfluenza Virus 2 Not Detected Not Detected LAB MICROBIOLOGY METHOD 09/17/2024 5:39 PM [facility] Parainfluenza Virus 3 Not Detected Not Detected LAB MICROBIOLOGY METHOD 09/17/2024 5:39 PM [facility] Parainfluenza Virus 4 Not Detected Not Detected LAB MICROBIOLOGY METHOD 09/17/2024 5:39 PM [facility] RSV PCR Not Detected Not Detected LAB MICROBIOLOGY METHOD 09/17/2024 5:39 PM [facility] Human Metapneumovirus A and B Not Detected Not Detected LAB MICROBIOLOGY METHOD 09/17/2024 5:39 PM [facility] Rhinovirus/Entero virus Not Detected Not Detected LAB MICROBIOLOGY METHOD 09/17/2024 5:39 PM [facility] Bordetella pertussis Not Detected Not Detected LAB MICROBIOLOGY METHOD 09/17/2024 5:39 PM [facility] Bordetella parapertussis Not Detected Not Detected LAB MICROBIOLOGY METHOD 09/17/2024 5:39 PM [facility] Mycoplasma pneumo by PCR Not Detected Not Detected LAB MICROBIOLOGY METHOD 09/17/2024 5:39 PM [facility] Chlamydia pneumoniae Not Detected Not Detected LAB MICROBIOLOGY METHOD 09/17/2024 5:39 PM [facility] SARS COV-2 Not Detected Not Detected LAB MICROBIOLOGY METHOD 09/17/2024 5:39 PM [facility] Swab Both anterior nares / Unknown Non-blood Collection / Unknown 09/17/2024 4:06 PM EST 09/17/2024 4:36 PM EST [facility] - 09/17/2024 5:39 PM EST Testing was performed using the [employer] Respiratory Pathogen PCR Assay. 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) Pyogenic arthritis of right shoulder region, due to unspecified organism (CMS/HCC) documented in this encounter Admitting Diagnoses Diagnosis Septic arthritis (CMS/HCC) Pyogenic arthritis, site unspecified 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) documented in this encounter Administered Medications Inactive Administered Medications - up to 3 most recent administrations Medication Order MAR Action Action Date Dose Rate Site acetaminophen (TYLENOL) tablet 1,000 mg 1,000 mg, oral, Every 8 hours scheduled, First dose on Tue09/19/24 at 1400, [facility] Given 09/20/2024 2:08 PM EST 1,000 mg clonazePAM (KlonoPIN) tablet 0.5 mg 0.5 mg, oral, 3 times daily PRN, anxiety, Starting on Tue09/18/24 at 0825, HAZARDOUS Drug Precautions - Low Risk (Category A/NIOSH Group 3) Reproductive Risk Only: - Single pair of ASTM standard D6978 certified chemotherapy gloves - Eye protection (goggles or face shield) required only with a potential for facial contact (i.e. concern for spitting or vomiting of the dose during or after administration) - Staff at reproductive risk (actively trying to conceive, or may be become , and ): chemo certified gown and an N95 respirator required when crushing meds (crushing of tabs allowed only in closed pouches) or opening of capsules only for allowable dosage forms Given 09/18/2024 8:38 PM EST 0.5 mg Given 09/18/2024 8:42 AM EST 0.5 mg glycopyrrolate (ROBINUL) injection 0.2 mg 0.2 mg, subcutaneous, Every 6 hours PRN, secretion, Starting on 09/23/24 at 1114 LORazepam (ATIVAN) injection 0.5 mg 0.5 mg, intravenous, Every 6 hours PRN, anxiety, Starting on 09/23/24 at 1401, Prior to IV use, lorazepam injection should be DILUTED with an equal volume of compatible solution; Rate of administration should NOT exceed 2 mg/min. Given 09/23/2024 2:14 PM EST 0.5 mg morphine 2 mg/mL injection 2 mg 2 mg, intravenous, Every 4 hours PRN, moderate pain, Starting on 09/23/24 at 1110 Given 09/24/2024 3:01 PM EST 2 mg morphine injection 4 mg 4 mg, intravenous, Every 4 hours PRN, severe pain, Starting on 09/23/24 at 1110 documented in this encounter Discontinued Medications Medication Sig Discontinue Reason Start Date End Da te LACTOBACILLUS ACIDOPHILUS ORAL Take 3 capsules by mouth daily. Stop Taking at Discharge 08/03/2024 09/27/2024 acetaminophen (TYLENOL) 325 mg tablet Take 3 tablets (975 mg total) by mouth every 8 hours. Stop Taking at Discharge 11/19/2022 09/27/2024 ascorbic acid, vitamin C, 500 mg capsule Take 1 capsule by mouth daily. Stop Taking at Discharge 08/03/2024 09/27/2024 aspirin 81 mg EC tablet Take 1 tablet (81 mg total) by mouth 1 (one) time each day. Stop Taking at Discharge 11/19/2022 09/27/2024 atorvastatin (LIPITOR) 80 mg tablet Take 1 tablet (80 mg total) by mouth 1 (one) time each day. Stop Taking at Discharge 08/15/2024 09/27/2024 carvediloL (COREG) 3.125 mg tablet Take 1 tablet (3.125 mg total) by mouth 2 (two) times a day with meals. Stop Taking at Discharge 08/14/2024 09/27/2024 dapagliflozin propanediol (FARXIGA) 10 mg tablet Take 1 tablet (10 mg total) by mouth 1 (one) time each day. Stop Taking at Discharge 08/15/2024 09/27/2024 furosemide (LASIX) 20 mg tablet Take 1 tablet (20 mg total) by mouth 1 (one) time each day. Stop Taking at Discharge 08/15/2024 09/27/2024 spironolactone (ALDACTONE) 25 mg tablet Take 1 tablet (25 mg total) by mouth 1 (one) time each day. Stop Taking at Discharge 08/15/2024 09/27/2024 documented as of this encounter Active and Recently Administered Medications Times are shown in EST. Scheduled Medication Order 09/25/2024 09/26/2024 09/27/2024 acetaminophen (TYLENOL) tablet 1,000 mg 1,000 mg, oral, Every 8 hours scheduled, First dose on Tue09/19/24 at 1400, [facility] 0917 (Not Given - Provider: Delvis Eden RN - Reason: Patient/Resident/Agen t refused - education provided )1400 (Not Given - Provider: Delvis Eden RN - Reason: Patient/Resident/Agen t refused - education provided )2135 (Not Given - Provider: Khadijah Son RN - Reason: Patient/Resident/Agen t refused - education provided ) 0652 (Not Given - Provider: Khadijah Son RN - Reason: Patient/Resident/Agen t refused - education provided )1345 (Not Given - Provider: Delvis Eden RN - Reason: Patient/Resident/Agen t refused - education provided )2100 (Not Given - Provider: Khadijah Cooper RN - Reason: Patient/Resident/Agen t refused - education provided ) 0600 (Not Given - Provider: Khadijah Cooper RN - Reason: Patient/Resident/Agen t refused - education provided ) PRN Medication Order 09/25/2024 09/26/2024 09/27/2024 clonazePAM (KlonoPIN) tablet 0.5 mg 0.5 mg, oral, 3 times daily PRN, anxiety, Starting on Tue09/18/24 at 0825, HAZARDOUS Drug Precautions - Low Risk (Category A/NIOSH Group 3) Reproductive Risk Only: - Single pair of ASTM standard D6978 certified chemotherapy gloves - Eye protection (goggles or face shield) required only with a potential for facial contact (i.e. concern for spitting or vomiting of the dose during or after administration) - Staff at reproductive risk (actively trying to conceive, or may be become , and ): chemo certified gown and an N95 respirator required when crushing meds (crushing of tabs allowed only in closed pouches) or opening of capsules only for allowable dosage forms glycopyrrolate (ROBINUL) injection 0.2 mg 0.2 mg, subcutaneous, Every 6 hours PRN, secretion, Starting on 09/23/24 at 1114 LORazepam (ATIVAN) injection 0.5 mg 0.5 mg, intravenous, Every 6 hours PRN, anxiety, Starting on 09/23/24 at 1401, Prior to IV use, lorazepam injection should be DILUTED with an equal volume of compatible solution; Rate of administration should NOT exceed 2 mg/min. morphine 2 mg/mL injection 2 mg 2 mg, intravenous, Every 4 hours PRN, moderate pain, Starting on 09/23/24 at 1110 morphine injection 4 mg 4 mg, intravenous, Every 4 hours PRN, severe pain, Starting on 09/23/24 at 1110 documented in this encounter Orders Medications Ordered That Milton ht Not Have Been Administered Count Last Ordered Date First Ordered Date glycopyrrolate (ROBINUL) injection 0.1 mg 1 09/23/2024 glycopyrrolate (ROBINUL) injection 0.2 mg 1 09/23/2024 LORazepam (ATIVAN) injection 0.5 mg 2 09/2309/18/2024 metoprolol tartrate (LOPRESS OR) injection 5 mg 2 09/23/2024 09/21/2024 morphine 2 mg/mL injection 2 mg 1 morphine injection 4 mg 1 09/23/2024 thiamine (VITAMIN B-1) injection 100 mg 1 0 09/23/2024 potassium chloride (KLOR-CON M20) CR tablet 40 mEq 1 09/22/2024 haloperidol lactate (HALDOL) injection 4 mg 1 09/21/2024 haloperidol lactate (HALDOL) injection 3 mg 2 09/20/2024 haloperidol lactate (HALDOL) injection 5 mg 1 09/20/2024 acetaminophen (TYLENOL) tablet 1,000 mg 1 0 09/19/2024 ceFAZolin (ANCEF) 2 g in lyndsay rile water 20 mL IV syringe 2 09/19/2024 09/18/2024 dextrose (D50W) 50% injection 12.5 g 1 09/05 dextrose (D50W) 50% injection 25 g 1 2024 dextrose 15 gram/60 mL oral solution 15 g 1 09/19/2024 dextrose 15 gram/60 mL oral solution 30 g 1 09/19/2024 Glucagon HCl (rDNA) injection 1 mg 1 2024 heparin (UFH) injection 5,000 Units 2 09/1909/18/2024 HYDROmorphone (PF) injection 0.25 mg 2 09/05 lactated Ringer's infusion 1 09/19/2024 magnesium sulfate 2 gram/50 mL (4 %) IVPB 2 g 2 09/19/2024 09/17/2024 ondansetron (PF) (ZOFRAN) injection 4 mg 1 09/19/2024 ondansetron ODT (ZOFRAN-ODT) disintegrating tablet 4 mg 1 09/19/2024 oxyCODONE (ROXICODONE) immed iate release tablet 2.5 mg 1 09/19/2024 oxyCODONE (ROXICODONE) immed iate release tablet 5 mg 3 09/19/2024 09/18/2024 traMADoL (ULTRAM) tablet 50 mg 1 09/19/2024 acetaminophen (TYLENOL) tablet 650 mg 1 clonazePAM (KlonoPIN) tablet 0.5 mg 1 09/18 iopamidoL (ISOVUE-370) 370 m g iodine /mL (76 %) injection 90 mL 1 09/18/2024 lidocaine (XYLOCAINE) 1 % injection 5 mL 1 09/18/2024 metoprolol tartrate (LOPRESS OR) 5 mg in sodium chloride 0.9 % 50 mL IVPB 1 09/18/2024 metoprolol tartrate (LOPRESS OR) tablet 25 mg 1 09/18/2024 perflutren lipid microsphere (DEFINITY) 1.3 mL in sodium chloride 0.9% 8.7 mL injection 1 09/18/2024 potassium chloride 10 mEq/10 0 mL IVPB 10 mEq 1 09/18/2024 sertraline (ZOLOFT) tablet 25 mg 1 09/18/19 25 sodium chloride 0.9 % bolus 500 mL 1 2024 sodium chloride 0.9 % flush 10 mL 2 025 09/17/2024 ascorbic acid (VITAMIN C) tablet 500 mg 1 0 09/17/2024 atorvastatin (LIPITOR) tablet 80 mg 1 09/17 carvediloL (COREG) tablet 3.125 mg 1 2024 cefTRIAXone (ROCEPHIN) 2 g i n sterile water 20 mL IV syringe 1 09/17/2024 dapagliflozin propanediol (F ARXIGA) tablet 10 mg 1 09/17/2024 furosemide (LASIX) tablet 20 mg 1 iopamidoL (ISOVUE-370) 370 m g iodine /mL (76 %) injection 100 mL 1 09/17/2024 sodium chloride 0.9 % infusion 1 09/17/2024 spironolactone (ALDACTONE) tablet 25 mg 1 0 09/17/2024 vancomycin (VANCOCIN) 750 mg in sodium chloride 0.9 % 250 mL IVPB 1 09/17/2024 Lab Orders Without Results Count Last Ordered D ate First Ordered Date POCT GLUCOSE, BLOOD 13 09/23/2024 09/19/19 25 Consult Count Last Ordered Date First Orde red Date IP CONSULT TO SOCIAL WORK 1 09/26/2024 IP CONSULT TO NUTRITION SERVICES 1 09/21/19 25 WOUND CARE INPATIENT FOLLOW-UP 1 09/20/2024 IP CONSULT TO INFECTIOUS DISEASES 1 025 IP CONSULT TO INTERVENTIONAL RADIOLOGY 1 IP CONSULT TO ORTHOPEDIC SURGERY 1 09/18/19 25 WOUND OSTOMY EVAL AND TREAT 1 09/18/2024 Admission Count Last Ordered Date First Orde red Date ADMIT TO INPATIENT 2 09/17/2024 Transfer Count Last Ordered Date First Orde red Date TRANSFER PATIENT TO NEW UNIT 2 09/24/2024 09/18/2024 ED TO FLOOR BED REQUEST 1 09/17/2024 Discharge Count Last Ordered Date First Orde red Date DISCHARGE PATIENT 1 09/27/2024 documented in this encounter Additional Health Concerns Infection Onset Date Last Indicated Resolved Time Respiratory Rule-Out 09/17/2024 09/17/2024 025 5:39 PM EST COVID-19 Rule-Out 09/17/2024 09/17/2024 09/17/2024 5:39 PM EST documented as of this encounter Care Teams Energy Rater Relationship Specialty Start Date End Date Dale Pinto MD [address] [place] [address] PCP - General Internal Medicine 11/10/21 documented as of this encounter
--- OUTSIDE RECORDS SUMMARY | 2024-09-28 14:17 | XMS_ITS | Encounter Summary ---
Author Organization [facility] Address [address] [place] [address] Care Team Providers Care Hvac Sheet Metal Installer Helper Name Role Phone Dale Pinto MD Primary Care Provider [phone] Encounter Details Date Type Department Care Team (Late st Contact Info) Description 07/17/2024 Lab Requisition [facility] - Main Lab [address] [facility] [place] [address] Rey Escalante MD [address] [place] [address] [id number] Chronic respiratory failure, unspecified whether with hypoxia or hypercapnia (CMS/HCC) Social History Tobacco Use Types Packs/Day [...] Diagnosis Comments CBC WITH AUTO DIFFERENTIAL Routine 07/17/2024 5:55 AM EST Chronic respiratory failure, unspecified whether with hypoxia or hypercapnia (CMS/HCC) CBC AND DIFFERENTIAL Routine 07/17/2024 5:55 AM EST Chronic respiratory failure, unspecified whether with hypoxia or hypercapnia (CMS/HCC) documented in this encounter Results * (ABNORMAL) CBC auto differential (07/17/2024 5:55 AM EST) WBC 11.9(H) 4.8 - 10.8 K/mcL LAB HEMETOLOGY METHOD 07/17/2024 10:22 AM [facility] RBC 3.40(L) 3.80 - 4.80 M/mcL LAB HEMETOLOGY METHOD 07/17/2024 10:22 AM [facility] Hemoglobin 7.3(L) 11.5 - 16.0 g/dL LAB HEMETOLOGY METHOD 07/17/2024 10:22 AM [facility] Hematocrit 23.9(L) 35.0 - 47.0 % LAB HEMETOLOGY METHOD 07/17/2024 10:22 AM [facility] MCV 70.9(L) 79.0 - 98.0 FL LAB HEMETOLOGY METHOD 07/17/2024 10:22 AM [facility] MCH 21.7(L) 27.0 - 32.0 pcg LAB HEMETOLOGY METHOD 07/17/2024 10:22 AM [facility] MCHC 30.5(L) 32.0 - 37.0 g/dL LAB HEMETOLOGY METHOD 07/17/2024 10:22 AM [facility] RDW 18.6(H) 11.0 - 15.0 % LAB HEMETOLOGY METHOD 07/17/2024 10:22 AM [facility] Platelets 749(H) 130 - 400 K/mcL LAB HEMETOLOGY METHOD 07/17/2024 10:22 AM [facility] MPV 9.4 7.0 - 11.0 FL LAB HEMETOLOGY METHOD 07/17/2024 10:22 AM [facility] NRBC 0.0 <1.0 % LAB HEMETOLOGY METHOD 07/17/2024 10:22 AM [facility] NRBC Absolute 0.00 <0.10 K/mcL LAB HEMETOLOGY METHOD 07/17/2024 10:22 AM [facility] Neutrophils Relative 82.2 % LAB HEMETOLOGY METHOD 07/17/2024 10:22 AM [facility] Lymphocytes Relative 10.7 % LAB HEMETOLOGY METHOD 07/17/2024 10:22 AM [facility] Monocytes Relative 2.6 % LAB HEMETOLOGY METHOD 07/17/2024 10:22 AM [facility] Eosinophils Relative 3.8 % LAB HEMETOLOGY METHOD 07/17/2024 10:22 AM [facility] Basophils Relative 0.2 % LAB HEMETOLOGY METHOD 07/17/2024 10:22 AM [facility] Immature Granulocytes Relative 0.5 % LAB HEMETOLOGY METHOD 07/17/2024 10:22 AM [facility] Neutrophils Absolute 9.79(H) 1.50 - 7.00 K/mcL LAB HEMETOLOGY METHOD 07/17/2024 10:22 AM [facility] Lymphocytes Absolute 1.27 1.00 - 5.00 K/mcL LAB HEMETOLOGY METHOD 07/17/2024 10:22 AM [facility] Monocytes Absolute 0.31 0.20 - 1.00 K/mcL LAB HEMETOLOGY METHOD 07/17/2024 10:22 AM [facility] Eosinophils Absolute 0.45 0.00 - 0.50 K/mcL LAB HEMETOLOGY METHOD 07/17/2024 10:22 AM [facility] Basophils Absolute 0.02 0.00 - 0.20 K/mcL LAB HEMETOLOGY METHOD 07/17/2024 10:22 AM EST [facility] Immature Granulocytes Absolute 0.06(H) 0.00 - 0.03 K/mcL LAB HEMETOLOGY METHOD 07/17/2024 10:22 AM EST [facility] Blood Venous blood specimen / Unknown Venipuncture / Unknown 07/17/2024 5:55 AM EST 07/17/2024 9:08 AM EST Rey Escalante MD LAB BLOOD ORDERABLES [facility] [address] [place] [address], documented in this encounter Visit Diagnoses Diagnosis Chronic respiratory failure, unspecified whether with hypoxia or hypercapnia (CMS/HCC) documented in this encounter Additional Health [...] documented as of this encounter Care Teams Hvac Sheet Metal Installer Helper Relationship Specialty Start Date End Date Dale Pinto MD [address] [place] [address] PCP - General Internal Medicine 11/10/21 documented as of this encounter
--- OUTSIDE RECORDS SUMMARY | 2024-09-28 14:17 | XMS_ITS | Encounter Summary ---
Author Organization [facility] Address [address] [place] [address] Care Team Providers Care Security Agent Name Role Phone Dale Pinto MD Primary Care Provider [phone] Encounter Details Date Type Department Care Team (Late st Contact Info) Description 07/23/2024 Lab Requisition [facility] - Main Lab [address] [facility] [place] [address] Rey Escalante MD [address] [place] [phone] Acute respiratory failure with hypoxia (CMS/HCC) Social [...] as of this encounter Plan of Treatment Scheduled Orders Name Type Priority Associated Diagnoses Orde r Schedule C-reactive protein Lab Routine Acute respiratory failure with hypoxia (CMS/HCC) Ordered: 07/24/2024 Sedimentation rate Lab Routine Acute respiratory failure with hypoxia (CMS/HCC) Ordered: 07/24/2024 documented as of this encounter Procedures Procedure Name Priority Date/Time Associated Diagnosis Comments CBC WITH AUTO DIFFERENTIAL Routine 07/23/2024 5:39 [...] this encounter Results * (ABNORMAL) C-reactive protein (07/23/2024 5:39 AM EST) [facility] C-Reactive Protein 6.38(H) <=0.50 mg/dL LAB CHEMISTRY METHOD 07/24/2024 10:33 AM EST [facility] Blood Venous blood specimen / Unknown Venipuncture / Unknown 07/23/2024 5:39 AM EST 07/23/2024 11:04 AM EST Rey Escalante MD LAB BLOOD ORDERABLES [facility] [address] [place] [address], * (ABNORMAL) Sedimentation rate (07/23/2024 5:39 AM EST) Pathologist [facility] Sed Rate 70(H) 0 - 30 mm/hr LAB HEMETOLOGY METHOD 07/24/2024 10:30 AM EST [facility] Blood Venous blood specimen / Unknown Venipuncture / Unknown 07/23/2024 5:39 AM EST 07/23/2024 11:04 AM EST Rey Escalante MD LAB BLOOD ORDERABLES [facility] [address] [place] [address], * (ABNORMAL) CBC auto differential (07/23/2024 5:39 AM EST) WBC 13.0(H) 4.8 - 10.8 K/mcL LAB HEMETOLOGY METHOD 07/23/2024 11:47 AM [facility] RBC 4.40 3.80 - 4.80 M/mcL LAB HEMETOLOGY METHOD 07/23/2024 11:47 AM [facility] Hemoglobin 9.9(L) 11.5 - 16.0 g/dL LAB HEMETOLOGY METHOD 07/23/2024 11:47 AM [facility] Hematocrit 32.6(L) 35.0 - 47.0 % LAB HEMETOLOGY METHOD 07/23/2024 11:47 AM [facility] MCV 74.4(L) 79.0 - 98.0 FL LAB HEMETOLOGY METHOD 07/23/2024 11:47 AM [facility] MCH 22.6(L) 27.0 - 32.0 pcg LAB HEMETOLOGY METHOD 07/23/2024 11:47 AM [facility] MCHC 30.4(L) 32.0 - 37.0 g/dL LAB HEMETOLOGY METHOD 07/23/2024 11:47 AM [facility] RDW 21.0(H) 11.0 - 15.0 % LAB HEMETOLOGY METHOD 07/23/2024 11:47 AM [facility] Platelets 641(H) 130 - 400 K/mcL LAB HEMETOLOGY METHOD 07/23/2024 11:47 AM [facility] MPV 9.3 7.0 - 11.0 FL LAB HEMETOLOGY METHOD 07/23/2024 11:47 AM [facility] NRBC 0.0 <1.0 % LAB HEMETOLOGY METHOD 07/23/2024 11:47 AM [facility] NRBC Absolute 0.00 <0.10 K/mcL LAB HEMETOLOGY METHOD 07/23/2024 11:47 AM [facility] Neutrophils Relative 79.4 % LAB HEMETOLOGY METHOD 07/23/2024 11:47 AM [facility] Lymphocytes Relative 9.4 % LAB HEMETOLOGY METHOD 07/23/2024 11:47 AM [facility] Monocytes Relative 5.0 % LAB HEMETOLOGY METHOD 07/23/2024 11:47 AM [facility] Eosinophils Relative 5.2 % LAB HEMETOLOGY METHOD 07/23/2024 11:47 AM [facility] Basophils Relative 0.5 % LAB HEMETOLOGY METHOD 07/23/2024 11:47 AM [facility] Immature Granulocytes Relative 0.5 % LAB HEMETOLOGY METHOD 07/23/2024 11:47 AM [facility] Neutrophils Absolute 10.34(H) 1.50 - 7.00 K/mcL LAB HEMETOLOGY METHOD 07/23/2024 11:47 AM [facility] Lymphocytes Absolute 1.22 1.00 - 5.00 K/mcL LAB HEMETOLOGY METHOD 07/23/2024 11:47 AM [facility] Monocytes Absolute 0.65 0.20 - 1.00 K/mcL LAB HEMETOLOGY METHOD 07/23/2024 11:47 AM [facility] Eosinophils Absolute 0.68(H) 0.00 - 0.50 K/mcL LAB HEMETOLOGY METHOD 07/23/2024 11:47 AM [facility] Basophils Absolute 0.06 0.00 - 0.20 K/mcL LAB HEMETOLOGY METHOD 07/23/2024 11:47 AM [facility] Immature Granulocytes Absolute 0.07(H) 0.00 - 0.03 K/mcL LAB HEMETOLOGY METHOD 07/23/2024 11:47 AM [facility] Blood Venous blood specimen / Unknown Venipuncture / Unknown 07/23/2024 5:39 AM EST 07/23/2024 11:04 AM EST Rey Escalante MD LAB BLOOD ORDERABLES [facility] [address] [place] [address], * (ABNORMAL) Comprehensive metabolic panel (07/23/2024 5:39 AM EST) Sodium 135 133 - 145 mmol/L LAB CHEMISTRY METHOD 07/23/2024 3:03 PM [facility] Potassium 4.4 3.5 - 5.5 mmol/L LAB CHEMISTRY METHOD 07/23/2024 3:03 PM [facility] Chloride 100 96 - 110 mmol/L LAB CHEMISTRY METHOD 07/23/2024 3:03 PM [facility] CO2 27 21 - 32 mmol/L LAB CHEMISTRY METHOD 07/23/2024 3:03 PM [facility] Anion Gap 8 3 - 11 LAB CHEMISTRY METHOD 07/23/2024 3:03 PM [facility] Glucose 53(L) 70 - 100 mg/dL LAB CHEMISTRY METHOD 07/23/2024 3:03 PM [facility] BUN 8 5 - 25 mg/dL LAB CHEMISTRY METHOD 07/23/2024 3:03 PM [facility] Creatinine 0.22(L) 0.50 - 1.10 mg/dL LAB CHEMISTRY METHOD 07/23/2024 3:03 PM [facility] eGFR 119 >=60 mL/min/1. 73m2 LAB CHEMISTRY METHOD 07/23/2024 3:03 PM [facility] Comment:Calculation based on the??Chronic Kidney Disease Epidemiology Collaboration (CKD-EPI) equation refit??without adjustment for race. BUN/Creatinine Ratio 36.4 LAB CHEMISTRY METHOD 07/23/2024 3:03 PM [facility] Calcium 8.3(L) 8.5 - 10.5 mg/dL LAB CHEMISTRY METHOD 07/23/2024 3:03 PM [facility] AST (SGOT) 12 10 - 42 unit/L LAB CHEMISTRY METHOD 07/23/2024 3:03 PM [facility] ALT (SGPT) 6(L) 10 - 60 unit/L LAB CHEMISTRY METHOD 07/23/2024 3:03 PM [facility] Alkaline Phosphatase 102 42 - 121 unit/L LAB CHEMISTRY METHOD 07/23/2024 3:03 PM [facility] Total Protein 5.9(L) 6.0 - 8.0 g/dL LAB CHEMISTRY METHOD 07/23/2024 3:03 PM [facility] Albumin 2.1(L) 3.2 - 5.0 g/dL LAB CHEMISTRY METHOD 07/23/2024 3:03 PM [facility] Total Bilirubin 0.3 0.0 - 1.4 mg/dL LAB CHEMISTRY METHOD 07/23/2024 3:03 PM [facility] Blood Venous blood specimen / Unknown Venipuncture / Unknown 07/23/2024 5:39 AM EST 07/23/2024 11:04 AM EST Rey Escalante MD LAB BLOOD ORDERABLES [facility] [address] [place] [address], documented in this encounter Visit Diagnoses Diagnosis [...] documented as of this encounter Care Teams Security Agent Relationship Specialty Start Date End Date Dale Pinto MD [address] [place] [address] PCP - General Internal Medicine 11/10/21 documented as of this encounter
--- OUTSIDE RECORDS SUMMARY | 2024-09-28 14:17 | XMS_ITS | Encounter Summary ---
Author Organization [facility] Address [address] [place] [address] Care Team Providers Care Harness Tier Name Role Phone Dale Pinto MD Primary Care Provider [phone] Encounter Details Date Type Department Care Team (Late st Contact Info) Description 07/24/2024 Lab Requisition [facility] - Main Lab [address] [facility] [place] [phone] Rey Escalante MD [address] [place] [phone] Acute respiratory failure with hypoxia (CMS/HCC) Social [...] Procedure Name Priority Date/Time Associated Diagnosis Comments CULTURE BLOOD Routine 07/24/2024 5:50 AM EST Acute respiratory failure with hypoxia (CMS/HCC) documented in this encounter Results * Culture blood (07/24/2024 5:50 AM EST) Culture, Blood No growth at 5 days 07/29/2024 12:01 PM EST [facility] Blood Venipuncture / Unknown 07/24/2024 5:50 AM EST 07/24/2024 11:47 AM EST Rey Escalante MD LAB MICROBIOLOGY - G ENERAL ORDERABLES [facility] [address] [place] [address], documented in this encounter Visit Diagnoses Diagnosis [...] documented as of this encounter Care Teams Harness Tier Relationship Specialty Start Date End Date Dale Pinto MD [address] [place] [address] PCP - General Internal Medicine 11/10/21 documented as of this encounter
--- OUTSIDE RECORDS SUMMARY | 2024-09-28 14:17 | XMS_ITS | Encounter Summary ---
Author Organization [facility] Address [address] [place] [address] Care Team Providers Care Cash Applications Coordinator Name Role Phone Dale Pinto MD Primary Care Provider [phone] Encounter Details Date Type Department Care Team (Late st Contact Info) Description 07/11/2024 Lab Requisition [facility] - Main Lab 299 [facility] [place] [address] Rey Escalante MD [address] [place] [phone] Urinary tract infection, site not specified Social History Tobacco Use Types Packs/Day Years [...] EST Urinary tract infection, site not specified documented in this encounter Results * (ABNORMAL) Culture urine (07/10/2024 12:45 PM EST) Culture, Urine 50,000-100,000 CFU/mL Staphylococcus lugdunensis(A) SANDRA 07/15/2024 12:31 PM EST [facility] Comment: Beta-lactamase negative The organism value for this result has been updated. These results have been appended to the previously preliminary verified report. Urine Urine specimen obtained by clean catch procedure / Unknown 07/10/2024 12:45 PM EST 07/11/2024 10:29 AM EST Narrative [facility] - 07/15/2024 12:31 PM EST Additional colony types present in insignificant amounts. Organism Antibiotic Method Susceptibility Staphylococcus lugdunensis Benzylpenicillin SANDRA Susceptible Staphylococcus lugdunensis Oxacillin SANDRA 1 ug/ml: Susceptible Staphylococcus lugdunensis Gentamicin SANDRA <=0.5 ug/ml: Susceptible Staphylococcus lugdunensis Ciprofloxacin SANDRA <=0.5 ug/ml: Susceptible Staphylococcus lugdunensis Levofloxacin SANDRA 0.25 ug/ml: Susceptible Staphylococcus lugdunensis Vancomycin SANDRA <=0.5 ug/ml: Susceptible Staphylococcus lugdunensis Tetracycline SANDRA <=1 ug/ml: Susceptible Staphylococcus lugdunensis Nitrofurantoin SANDRA <=16 ug/ml: Susceptible Staphylococcus lugdunensis Rifampin SANDRA <=0.5 ug/ml: Susceptible Rey Escalante MD LAB MICROBIOLOGY - G ENERAL ORDERABLES [facility] [address] [place] [address], [place] [phone] * (ABNORMAL) Urinalysis with reflex microscopic and culture (07/10/2024 12:45 PM EST) Specific [place] Urine 1.010 1.003 - 1.030 LAB URINALYSIS - AUTOMATED METHOD 07/11/2024 10:30 AM [facility] pH, Urine 6.5 5.0 - 8.0 pH LAB URINALYSIS - AUTOMATED METHOD 07/11/2024 10:30 AM [facility] Leukocytes, Urine Large(A) Negative LAB URINALYSIS - AUTOMATED METHOD 07/11/2024 10:30 AM [facility] Nitrite, Urine Negative Negative LAB URINALYSIS - AUTOMATED METHOD 07/11/2024 10:30 AM [facility] Protein, Urine Trace <=Trace mg/dL LAB URINALYSIS - AUTOMATED METHOD 07/11/2024 10:30 AM [facility] Glucose, Urine Negative Negative mg/dL LAB URINALYSIS - AUTOMATED METHOD 07/11/2024 10:30 AM [facility] Ketones, Urine Negative Negative mg/dL LAB URINALYSIS - AUTOMATED METHOD 07/11/2024 10:30 AM [facility] Urobilinogen , Urine 0.2 0.2 - 1.0 mg/dL LAB URINALYSIS - AUTOMATED METHOD 07/11/2024 10:30 AM [facility] Bilirubin, Urine Negative Negative LAB URINALYSIS - AUTOMATED METHOD 07/11/2024 10:30 AM [facility] Blood, Urine Moderate(A) Negative LAB URINALYSIS - AUTOMATED METHOD 07/11/2024 10:30 AM [facility] RBC, Urine 1.5 0 - 4 /HPF LAB URINALYSIS - AUTOMATED METHOD 07/11/2024 10:30 AM [facility] WBC, Urine 8.7(H) 0 - 4 /HPF LAB URINALYSIS - AUTOMATED METHOD 07/11/2024 10:30 AM [facility] Squamous Epithelial, Urine >100(H) 0 - 60 /LPF LAB URINALYSIS - AUTOMATED METHOD 07/11/2024 10:30 AM [facility] Bacteria, Urine Negative Negative /HPF LAB URINALYSIS - AUTOMATED METHOD 07/11/2024 10:30 AM [facility] Hyaline Casts, Urine 0.8 0 - 3 /LPF LAB URINALYSIS - AUTOMATED METHOD 07/11/2024 10:30 AM [facility] Urine Urine specimen obtained by clean catch procedure / Unknown 07/10/2024 12:45 PM EST 07/11/2024 9:13 AM EST Rey Escalante MD LAB URINE ORDERABLES Performing Organization Address City/[facility]/ZIP Co de Phone Number [facility] [address] [place] [address], [place] [phone] * Waters urine culture tube (07/10/2024 12:45 PM EST) Extra Tube Hold for add-ons. 07/11/2024 11:01 AM [facility] Comment:Auto resulted. Urine Urine specimen obtained by clean catch procedure / Unknown 07/10/2024 12:45 PM EST 07/11/2024 9:13 AM EST Rey Escalante MD LAB URINE ORDERABLES [facility] [address] [place] [address], [place] [phone] documented in this encounter Visit Diagnoses Diagnosis Urinary tract infection, site not specified documented in this encounter Additional Health Concerns Infection Onset Date Last Indicated Resolved Time Respiratory Rule-Out 08/09/2024 08/10/2024 122 024 2:15 AM EST COVID-19 Rule-Out 08/09/2024 08/10/2024 08/10/2024 2:15 AM EST Enterovirus 08/10/2024 08/10/2024 09/03/2024 7:06 PM EST Rhinovirus 08/10/2024 08/10/2024 09/03/2024 7:06 PM EST Respiratory Rule-Out 09/17/2024 09/17/2024 025 5:39 PM EST COVID-19 Rule-Out 09/17/2024 09/17/2024 09/17/2024 5:39 PM EST documented as of this encounter Care Teams Cash Applications Coordinator Relationship Specialty Start Date End Date Dale Pinto MD [address] [place] [address] PCP - General Internal Medicine 11/10/21 documented as of this encounter
--- OUTSIDE RECORDS SUMMARY | 2024-09-28 14:17 | XMS_ITS | Encounter Summary ---
Author Organization [facility] Address [address] [place] [address] Care Team Providers Care Graining Press Operator Name Role Phone Dale Pinto MD Primary Care Provider [phone] Encounter Details Date Type Department Care Team (Late st Contact Info) Description 07/24/2024 Lab Requisition [facility] - Main Lab 299 [facility] [place] [address] Rey Escalante MD [address] [place] [address] Acute respiratory failure with hypoxia (CMS/HCC) Social [...] Diagnosis Comments CBC WITH AUTO DIFFERENTIAL Routine 07/24/2024 5:40 [...] encounter Results * (ABNORMAL) CBC auto differential (07/24/2024 5:40 AM EST) Pathologist [facility] WBC 13.3(H) 4.8 - 10.8 K/mcL LAB HEMETOLOGY METHOD 07/24/2024 11:58 AM [facility] RBC 4.50 3.80 - 4.80 M/mcL LAB HEMETOLOGY METHOD 07/24/2024 11:58 AM [facility] Hemoglobin 10.1(L) 11.5 - 16.0 g/dL LAB HEMETOLOGY METHOD 07/24/2024 11:58 AM [facility] Hematocrit 33.4(L) 35.0 - 47.0 % LAB HEMETOLOGY METHOD 07/24/2024 11:58 AM [facility] MCV 74.2(L) 79.0 - 98.0 FL LAB HEMETOLOGY METHOD 07/24/2024 11:58 AM [facility] MCH 22.4(L) 27.0 - 32.0 pcg LAB HEMETOLOGY METHOD 07/24/2024 11:58 AM [facility] MCHC 30.2(L) 32.0 - 37.0 g/dL LAB HEMETOLOGY METHOD 07/24/2024 11:58 AM [facility] RDW 21.2(H) 11.0 - 15.0 % LAB HEMETOLOGY METHOD 07/24/2024 11:58 AM [facility] Platelets 629(H) 130 - 400 K/mcL LAB HEMETOLOGY METHOD 07/24/2024 11:58 AM [facility] MPV 9.7 7.0 - 11.0 FL LAB HEMETOLOGY METHOD 07/24/2024 11:58 AM [facility] NRBC 0.0 <1.0 % LAB HEMETOLOGY METHOD 07/24/2024 11:58 AM [facility] NRBC Absolute 0.00 <0.10 K/mcL LAB HEMETOLOGY METHOD 07/24/2024 11:58 AM [facility] Neutrophils Relative 78.7 % LAB HEMETOLOGY METHOD 07/24/2024 11:58 AM [facility] Lymphocytes Relative 10.1 % LAB HEMETOLOGY METHOD 07/24/2024 11:58 AM [facility] Monocytes Relative 5.0 % LAB HEMETOLOGY METHOD 07/24/2024 11:58 AM [facility] Eosinophils Relative 5.3 % LAB HEMETOLOGY METHOD 07/24/2024 11:58 AM [facility] Basophils Relative 0.5 % LAB HEMETOLOGY METHOD 07/24/2024 11:58 AM [facility] Immature Granulocytes Relative 0.4 % LAB HEMETOLOGY METHOD 07/24/2024 11:58 AM [facility] Neutrophils Absolute 10.46(H) 1.50 - 7.00 K/mcL LAB HEMETOLOGY METHOD 07/24/2024 11:58 AM [facility] Lymphocytes Absolute 1.34 1.00 - 5.00 K/mcL LAB HEMETOLOGY METHOD 07/24/2024 11:58 AM EST [facility] Monocytes Absolute 0.67 0.20 - 1.00 K/[facility] LAB HEMETOLOGY METHOD 07/24/2024 11:58 AM [facility] Eosinophils Absolute 0.71(H) 0.00 - 0.50 K/[facility] LAB HEMETOLOGY METHOD 07/24/2024 11:58 AM EST [facility] Basophils Absolute 0.06 0.00 - 0.20 K/[facility] HEMETOLOGY METHOD 07/24/2024 11:58 AM [facility] Immature Granulocytes Absolute 0.05(H) 0.00 - 0.03 K/[facility] HEMETOLOGY METHOD 07/24/2024 11:58 AM [facility] Blood Venous blood specimen / Unknown Venipuncture / Unknown 07/24/2024 5:40 AM EST 07/24/2024 11:44 AM EST Rey Escalante MD LAB BLOOD ORDERABLES Performing Organization Address City/[facility]/ZIP Co de Phone Number [facility] [address] [place] [address], [place] [phone] * Culture blood (07/24/2024 5:40 AM EST) Culture, Blood No growth at 5 days 07/29/2024 12:01 PM EST [facility] Blood Venipuncture / Unknown 07/24/2024 5:40 AM EST 07/24/2024 11:44 AM EST Rey Escalante MD LAB MICROBIOLOGY - G ENERAL ORDERABLES [facility] [address] [place] [address], [place] [phone] * (ABNORMAL) C-reactive protein (07/24/2024 5:40 AM EST) [facility] C-Reactive Protein 6.46(H) <=0.50 mg/dL LAB CHEMISTRY METHOD 07/24/2024 1:23 PM EST [facility] Blood Venous blood specimen / Unknown Venipuncture / Unknown 07/24/2024 5:40 AM EST 07/24/2024 11:44 AM EST Rey Escalante MD LAB BLOOD ORDERABLES Performing Organization Address City/[facility]/ZIP Co de Phone Number [facility] [address] [place] [address], [place] [phone] * (ABNORMAL) Sedimentation rate (07/24/2024 5:40 AM EST) [facility] Sed Rate 125(H) 0 - 30 mm/hr LAB HEMETOLOGY METHOD 07/24/2024 12:02 PM EST [facility] Blood Venous blood specimen / Unknown Venipuncture / Unknown 07/24/2024 5:40 AM EST 07/24/2024 11:44 AM EST Rey Escalante MD LAB BLOOD ORDERABLES Performing Organization Address City/[facility]/ZIP Co de Phone Number [facility] [address] [place] [address], [place] [phone] * (ABNORMAL) Comprehensive metabolic panel (07/24/2024 5:40 AM EST) [facility] Sodium 135 133 - 145 mmol/L LAB CHEMISTRY METHOD 07/24/2024 1:27 PM EST [facility] Potassium 4.6 3.5 - 5.5 mmol/L LAB CHEMISTRY METHOD 07/24/2024 1:27 PM [facility] Chloride 99 96 - 110 mmol/L LAB CHEMISTRY METHOD 07/24/2024 1:27 PM EST [facility] CO2 26 21 - 32 mmol/L LAB CHEMISTRY METHOD 07/24/2024 1:27 PM [facility] Anion Gap 10 3 - 11 LAB CHEMISTRY METHOD 07/24/2024 1:27 PM [facility] Glucose 53(L) 70 - 100 mg/dL LAB CHEMISTRY METHOD 07/24/2024 1:27 PM [facility] BUN 10 5 - 25 mg/dL LAB CHEMISTRY METHOD 07/24/2024 1:27 PM [facility] Creatinine 0.21(L) 0.50 - 1.10 mg/dL LAB CHEMISTRY METHOD 07/24/2024 1:27 PM [facility] eGFR 120 >=60 mL/min/1. 73m2 LAB CHEMISTRY METHOD 07/24/2024 1:27 PM [facility] Comment:Calculation based on the??Chronic Kidney Disease Epidemiology Collaboration (CKD-EPI) equation refit??without adjustment for race. BUN/Creatinine Ratio 47.6 LAB CHEMISTRY METHOD 07/24/2024 1:27 PM [facility] Calcium 8.4(L) 8.5 - 10.5 mg/dL LAB CHEMISTRY METHOD 07/24/2024 1:27 PM [facility] AST (SGOT) 16 10 - 42 unit/L LAB CHEMISTRY METHOD 07/24/2024 1:27 PM [facility] ALT (SGPT) 8(L) 10 - 60 unit/L LAB CHEMISTRY METHOD 07/24/2024 1:27 PM [facility] Alkaline Phosphatase 101 42 - 121 unit/L LAB CHEMISTRY METHOD 07/24/2024 1:27 PM [facility] Total Protein 6.0 6.0 - 8.0 g/dL LAB CHEMISTRY METHOD 07/24/2024 1:27 PM [facility] Albumin 2.1(L) 3.2 - 5.0 g/dL LAB CHEMISTRY METHOD 07/24/2024 1:27 PM [facility] Total Bilirubin 0.3 0.0 - 1.4 mg/dL LAB CHEMISTRY METHOD 07/24/2024 1:27 PM EST [facility] Blood Venous blood specimen / Unknown Venipuncture / Unknown 07/24/2024 5:40 AM EST 07/24/2024 11:44 AM EST Rey Escalante MD LAB BLOOD ORDERABLES [facility] [address] [place] [address], documented in this encounter Visit Diagnoses Diagnosis [...] documented as of this encounter Care Teams Graining Press Operator Relationship Specialty Start Date End Date Dale Pinto MD [address] [place] [address] PCP - General Internal Medicine 11/10/21 documented as of this encounter
--- OUTSIDE RECORDS SUMMARY | 2024-09-28 14:17 | XMS_ITS | Clinical Summary ---
Author Organization [facility] Address [address] [place] [phone] Phone Care Team Providers Care Residential Construction Instructor Name Role Phone Dale Pinto MD Primary Care Provider [phone] Social History Tobacco Use Types Packs/Day Years Used Date Smoking Tobacco: Never Assessed Comments Unknown Sex and Gender Information Value Date Recorded Sex Assigned at Not on file Legal Sex Female 3:11 PM EST Gender Identity Not on file Sexual Orientation Not on file Plan of Treatment Upcoming Encounters Date Type Department Care Team (Late st Contact Info) Description 11/02/2024 11:00 AM EST Office Visit [facility] [address] [address] Yazan Albright MD [address] [address] Health Maintenance Due Date Last Done Comments Pneumococcal Vaccine: 65+ Ye ars (1 of 2 - PCV) 1956 Influenza Vaccine (#1) 2024 Hepatitis B Vaccine Aged Out No longe r eligible based on patient's age to complete this topic Insurance MEDICARE [facility] Care Teams Residential Construction Instructor Relationship Specialty Start Date End Date Dale Pinto MD [address] [place] [address] PCP - General Internal Medicine 08/27/24
--- OUTSIDE RECORDS SUMMARY | 2024-09-28 14:17 | XMS_ITS | Encounter Summary ---
Author Organization [email or web address] Address [address] [place] [address] Care Team Providers Care Long Distance Billing Operator Name Role Phone Dale Pinto MD Primary Care Provider [phone] Encounter Details Date Type Department Care Team (Late st Contact Info) Description 07/24/2024 Lab Requisition [facility] - Main Lab 299 [facility] [place] [phone] Rey Escalante MD [address] [place] [address] Elevated white blood cell count, unspecified Social History Tobacco Use Types Packs/Day Years [...] Procedure Name Priority Date/Time Associated Diagnosis Comments LACTATE STAT 07/24/2024 12:10 PM EST Elevated white blood cell count, unspecified documented in this encounter Results * (ABNORMAL) Lactate (07/24/2024 12:10 PM EST) Lactate 2.1(H) 0.4 - 2.0 mmol/L LAB CHEMISTRY METHOD 07/24/2024 1:18 PM EST [facility] Blood Venous blood specimen / Unknown Venipuncture / Unknown 07/24/2024 12:10 PM EST 07/24/2024 12:43 PM EST Rey Escalante MD LAB BLOOD ORDERABLES [facility] [address] [place], [place] [address] [phone] documented in this encounter Visit Diagnoses Diagnosis Elevated white blood cell count, unspecified documented in this encounter Additional Health Concerns [...] documented as of this encounter Care Teams Long Distance Billing Operator Relationship Specialty Start Date End Date Dale Pinto MD [address] [place] [address] PCP - General Internal Medicine 11/10/21 documented as of this encounter
--- OUTSIDE RECORDS SUMMARY | 2024-09-28 14:17 | XMS_ITS | Encounter Summary ---
Author Organization [facility] Address [address] [place] [address] Care Team Providers Care Physician Office Specialist Name Role Phone Dale Pinto MD Primary Care Provider Encounter Details Date Type Department Care Team (Late st Contact Info) Description 07/19/2024 Lab Requisition [facility] - Main Lab 299 [facility] [place] [address] Rey Escalante MD [address] [place] [address] Acute respiratory failure with hypoxia (CMS/HCC) Social [...] Diagnosis Comments CBC WITH AUTO DIFFERENTIAL Routine 07/19/2024 10:20 AM EST Acute respiratory failure with hypoxia (CMS/HCC) CBC AND DIFFERENTIAL Routine 07/19/2024 10:20 AM EST Acute respiratory failure with hypoxia (CMS/HCC) documented in this encounter Results * (ABNORMAL) CBC auto differential (07/19/2024 10:20 AM EST) WBC 19.1(H) 4.8 - 10.8 K/mcL LAB HEMETOLOGY METHOD 07/19/2024 11:25 AM [facility] RBC 4.50 3.80 - 4.80 M/mcL LAB HEMETOLOGY METHOD 07/19/2024 11:25 AM [facility] Hemoglobin 10.2(L) 11.5 - 16.0 g/dL LAB HEMETOLOGY METHOD 07/19/2024 11:25 AM [facility] Hematocrit 32.2(L) 35.0 - 47.0 % LAB HEMETOLOGY METHOD 07/19/2024 11:25 AM [facility] MCV 72.2(L) 79.0 - 98.0 FL LAB HEMETOLOGY METHOD 07/19/2024 11:25 AM [facility] MCH 22.9(L) 27.0 - 32.0 pcg LAB HEMETOLOGY METHOD 07/19/2024 11:25 AM [facility] MCHC 31.7(L) 32.0 - 37.0 g/dL LAB HEMETOLOGY METHOD 07/19/2024 11:25 AM [facility] RDW 19.0(H) 11.0 - 15.0 % LAB HEMETOLOGY METHOD 07/19/2024 11:25 AM [facility] Platelets 726(H) 130 - 400 K/mcL LAB HEMETOLOGY METHOD 07/19/2024 11:25 AM [facility] MPV 9.3 7.0 - 11.0 FL LAB HEMETOLOGY METHOD 07/19/2024 11:25 AM [facility] NRBC 0.0 <1.0 % LAB HEMETOLOGY METHOD 07/19/2024 11:25 AM [facility] NRBC Absolute 0.00 <0.10 K/mcL LAB HEMETOLOGY METHOD 07/19/2024 11:25 AM [facility] Neutrophils Relative 89.7 % LAB HEMETOLOGY METHOD 07/19/2024 11:25 AM [facility] Lymphocytes Relative 5.3 % LAB HEMETOLOGY METHOD 07/19/2024 11:25 AM [facility] Monocytes Relative 2.5 % LAB HEMETOLOGY METHOD 07/19/2024 11:25 AM [facility] Eosinophils Relative 1.5 % LAB HEMETOLOGY METHOD 07/19/2024 11:25 AM [facility] Basophils Relative 0.2 % LAB HEMETOLOGY METHOD 07/19/2024 11:25 AM [facility] Immature Granulocytes Relative 0.8 % LAB HEMETOLOGY METHOD 07/19/2024 11:25 AM [facility] Neutrophils Absolute 17.16(H) 1.50 - 7.00 K/mcL LAB HEMETOLOGY METHOD 07/19/2024 11:25 AM [facility] Lymphocytes Absolute 1.02 1.00 - 5.00 K/mcL LAB HEMETOLOGY METHOD 07/19/2024 11:25 AM [facility] Monocytes Absolute 0.48 0.20 - 1.00 K/mcL LAB HEMETOLOGY METHOD 07/19/2024 11:25 AM [facility] Eosinophils Absolute 0.28 0.00 - 0.50 K/mcL LAB HEMETOLOGY METHOD 07/19/2024 11:25 AM [facility] Basophils Absolute 0.04 0.00 - 0.20 K/mcL LAB HEMETOLOGY METHOD 07/19/2024 11:25 AM [facility] Immature Granulocytes Absolute 0.16(H) 0.00 - 0.03 K/mcL LAB HEMETOLOGY METHOD 07/19/2024 11:25 AM EST [facility] Blood Venous blood specimen / Unknown Venipuncture / Unknown 07/19/2024 10:20 AM EST 07/19/2024 10:59 AM EST Rey Escalante MD LAB BLOOD ORDERABLES [facility] [address] [place] [address], documented in this encounter Visit Diagnoses Diagnosis [...] documented as of this encounter Care Teams Physician Office Specialist Relationship Specialty Start Date End Date Dale Pinto MD [address] [place] [address] PCP - General Internal Medicine 11/10/21 documented as of this encounter
--- OUTSIDE RECORDS SUMMARY | 2024-09-28 14:17 | XMS_ITS | Encounter Summary ---
Author Organization [facility] Address [address] [place] [address] Care Team Providers Care Consulting Group Analyst Name Role Phone Dale Pinto MD Primary Care Provider [phone] Encounter Details Date Type Department Care Team (Late st Contact Info) Description 07/18/2024 Lab Requisition [facility] - Main Lab [address] [facility] [place] [address] Rey Escalante MD [address] [place] [id number] Acute respiratory failure with hypoxia (CMS/HCC) Social [...] Procedure Name Priority Date/Time Associated Diagnosis Comments IRON AND TIBC Routine 07/18/2024 7:16 AM [...] documented in this encounter Results * (ABNORMAL) Iron and TIBC (07/18/2024 7:16 AM EST) Iron 13(L) 40 - 150 mcg/dL LAB CHEMISTRY METHOD 07/18/2024 12:29 PM EST [facility] LAB TIBC 234(L) 250 - 450 mcg/dL LAB CHEMISTRY METHOD 07/18/2024 12:29 PM EST [facility] LAB Iron Saturation 6(L) 15 - 50 % LAB CHEMISTRY METHOD 07/18/2024 12:29 PM EST [facility] LAB Blood Venous blood specimen / Unknown Venipuncture / Unknown 07/18/2024 7:16 AM EST 07/18/2024 9:05 AM EST Rey Escalante MD LAB BLOOD ORDERABLES [facility] [address] [place] [address], * Folate (07/18/2024 7:16 AM EST) Pathologist [facility] Folate 3.7 2.8 - 17.0 ng/ml LAB CHEMISTRY METHOD 07/18/2024 12:29 PM EST [facility] LAB Blood Venous blood specimen / Unknown Venipuncture / Unknown 07/18/2024 7:16 AM EST 07/18/2024 9:05 AM EST Rey Escalatne MD LAB BLOOD ORDERABLES Performing Organization Address City/[facility]/ZIP Co de Phone Number [facility] [address] [place] [address], * Ferritin (07/18/2024 7:16 AM EST) Ferritin 38 8 - 252 ng/mL LAB CHEMISTRY METHOD 07/18/2024 12:29 PM [facility] LAB Blood Venous blood specimen / Unknown Venipuncture / Unknown 07/18/2024 7:16 AM EST 07/18/2024 9:05 AM EST Rey Escalante MD LAB BLOOD ORDERABLES Performing Organization Address [facility]/ZIP Co de Phone Number [facility] [address] [place] [address], * (ABNORMAL) Complete blood count (07/18/2024 7:16 AM EST) Pathologist [facility] WBC 14.4(H) 4.8 - 10.8 K/mcL LAB HEMETOLOGY METHOD 07/18/2024 10:39 AM [facility] LAB RBC 3.40(L) 3.80 - 4.80 M/[facility] LAB HEMETOLOGY METHOD 07/18/2024 10:39 AM [facility] LAB Hemoglobin 7.3(L) 11.5 - 16.0 g/dL LAB HEMETOLOGY METHOD 07/18/2024 10:39 AM [facility] LAB Hematocrit 24.2(L) 35.0 - 47.0 % LAB HEMETOLOGY METHOD 07/18/2024 10:39 AM [facility] LAB MCV 71.2(L) 79.0 - 98.0 FL LAB HEMETOLOGY METHOD 07/18/2024 10:39 AM [facility] LAB MCH 21.5(L) 27.0 - 32.0 pcg LAB HEMETOLOGY METHOD 07/18/2024 10:39 AM EST [facility] LAB MCHC 30.2(L) 32.0 - 37.0 g/dL LAB HEMETOLOGY METHOD 07/18/2024 10:39 AM [facility] LAB RDW 18.6(H) 11.0 - 15.0 % LAB HEMETOLOGY METHOD 07/18/2024 10:39 AM [facility] LAB Platelets 715(H) 130 - 400 K/mcL LAB HEMETOLOGY METHOD 07/18/2024 10:39 AM [facility] LAB MPV 9.6 7.0 - 11.0 FL LAB HEMETOLOGY METHOD 07/18/2024 10:39 AM [facility] LAB NRBC 0.0 <1.0 % LAB HEMETOLOGY METHOD 07/18/2024 10:39 AM [facility] LAB NRBC Absolute 0.00 <0.10 K/mcL LAB HEMETOLOGY METHOD 07/18/2024 10:39 AM [facility] LAB Blood Venous blood specimen / Unknown Venipuncture / Unknown 07/18/2024 7:16 AM EST 07/18/2024 9:05 AM EST Rey Escalante MD LAB BLOOD ORDERABLES [facility] [address] [place] [address], * Vitamin B12 (07/18/2024 7:16 AM EST) [facility] Vitamin B-12 525 250 - 900 pcg/mL LAB CHEMISTRY METHOD 07/18/2024 12:29 PM EST [facility] LAB Blood Venous blood specimen / Unknown Venipuncture / Unknown 07/18/2024 7:16 AM EST 07/18/2024 9:05 AM EST Rey Escalante MD LAB BLOOD ORDERABLES [facility] [address] [place] [address], documented in this encounter Visit Diagnoses Diagnosis [...] documented as of this encounter Care Teams Consulting Group Analyst Relationship Specialty Start Date End Date Dale Pinto MD [address] [place] [address] PCP - General Internal Medicine 11/10/21 documented as of this encounter
--- OUTSIDE RECORDS SUMMARY | 2024-09-28 14:17 | XMS_ITS | Encounter Summary ---
Author Organization [facility] Address [address] [place] [address] Care Team Providers Care Clinical Rehabilitation Aide Name Role Phone Dale Pinto MD Primary Care Provider [phone] Encounter Details Date Type Department Care Team (Late st Contact Info) Description 07/16/2024 Lab Requisition [facility] - Main Lab [address] [facility] [place] [address] Rey Escalante MD [address] [place] [id number] Acute respiratory failure with hypoxia (CMS/HCC) Social [...] Diagnosis Comments CBC WITH AUTO DIFFERENTIAL Routine 07/16/2024 6:17 AM EST Acute respiratory failure with hypoxia (CMS/HCC) CBC AND DIFFERENTIAL Routine 07/16/2024 6:17 AM EST Acute respiratory failure with hypoxia (CMS/HCC) COMPREHENSIVE METABOLIC PANEL Routine 07/16/2024 6:17 AM EST Acute respiratory failure with hypoxia (CMS/HCC) documented in this encounter Results * (ABNORMAL) CBC auto differential (07/16/2024 6:17 AM EST) WBC 13.9(H) 4.8 - 10.8 K/mcL LAB HEMETOLOGY METHOD 07/16/2024 1:49 PM [facility] LAB RBC 3.50(L) 3.80 - 4.80 M/mcL LAB HEMETOLOGY METHOD 07/16/2024 1:49 PM [facility] LAB Hemoglobin 7.6(L) 11.5 - 16.0 g/dL LAB HEMETOLOGY METHOD 07/16/2024 1:49 PM [facility] LAB Hematocrit 25.1(L) 35.0 - 47.0 % LAB HEMETOLOGY METHOD 07/16/2024 1:49 PM [facility] LAB MCV 71.1(L) 79.0 - 98.0 FL LAB HEMETOLOGY METHOD 07/16/2024 1:49 PM [facility] LAB MCH 21.5(L) 27.0 - 32.0 pcg LAB HEMETOLOGY METHOD 07/16/2024 1:49 PM [facility] LAB MCHC 30.3(L) 32.0 - 37.0 g/dL LAB HEMETOLOGY METHOD 07/16/2024 1:49 PM [facility] LAB RDW 18.9(H) 11.0 - 15.0 % LAB HEMETOLOGY METHOD 07/16/2024 1:49 PM [facility] LAB Platelets 786(H) 130 - 400 K/mcL LAB HEMETOLOGY METHOD 07/16/2024 1:49 PM [facility] LAB MPV 9.3 7.0 - 11.0 FL LAB HEMETOLOGY METHOD 07/16/2024 1:49 PM [facility] LAB NRBC 0.0 <1.0 % LAB HEMETOLOGY METHOD 07/16/2024 1:49 PM [facility] LAB NRBC Absolute 0.00 <0.10 K/mcL LAB HEMETOLOGY METHOD 07/16/2024 1:49 PM [facility] LAB Neutrophils Relative 83.8 % LAB HEMETOLOGY METHOD 07/16/2024 1:49 PM [facility] LAB Lymphocytes Relative 9.6 % LAB HEMETOLOGY METHOD 07/16/2024 1:49 PM [facility] LAB Monocytes Relative 2.2 % LAB HEMETOLOGY METHOD 07/16/2024 1:49 PM [facility] LAB Eosinophils Relative 3.6 % LAB HEMETOLOGY METHOD 07/16/2024 1:49 PM [facility] Basophils Relative 0.2 % LAB HEMETOLOGY METHOD 07/16/2024 1:49 PM [facility] LAB Immature Granulocytes Relative 0.6 % LAB HEMETOLOGY METHOD 07/16/2024 1:49 PM [facility] LAB Neutrophils Absolute 11.67(H) 1.50 - 7.00 K/mcL LAB HEMETOLOGY METHOD 07/16/2024 1:49 PM [facility] LAB Lymphocytes Absolute 1.34 1.00 - 5.00 K/mcL LAB HEMETOLOGY METHOD 07/16/2024 1:49 PM [facility] LAB Monocytes Absolute 0.30 0.20 - 1.00 K/mcL LAB HEMETOLOGY METHOD 07/16/2024 1:49 PM [facility] LAB Eosinophils Absolute 0.50 0.00 - 0.50 K/mcL LAB HEMETOLOGY METHOD 07/16/2024 1:49 PM [facility] Basophils Absolute 0.03 0.00 - 0.20 K/mcL LAB HEMETOLOGY METHOD 07/16/2024 1:49 PM [facility] LAB Immature Granulocytes Absolute 0.09(H) 0.00 - 0.03 K/mcL LAB HEMETOLOGY METHOD 07/16/2024 1:49 PM [facility] LAB Blood Venous blood specimen / Unknown Venipuncture / Unknown 07/16/2024 6:17 AM EST 07/16/2024 11:52 AM EST Rey Escalante MD LAB BLOOD ORDERABLES [facility] [address] [place] [address], * (ABNORMAL) Comprehensive metabolic panel (07/16/2024 6:17 AM EST) Sodium 133 133 - 145 mmol/L LAB CHEMISTRY METHOD 07/16/2024 2:12 PM [facility] LAB Potassium 4.3 3.5 - 5.5 mmol/L LAB CHEMISTRY METHOD 07/16/2024 2:12 PM [facility] Chloride 98 96 - 110 mmol/L LAB CHEMISTRY METHOD 07/16/2024 2:12 PM [facility] CO2 24 21 - 32 mmol/L LAB CHEMISTRY METHOD 07/16/2024 2:12 PM [facility] Anion Gap 11 3 - 11 LAB CHEMISTRY METHOD 07/16/2024 2:12 PM [facility] LAB Glucose 51(L) 70 - 100 mg/dL LAB CHEMISTRY METHOD 07/16/2024 2:12 PM [facility] LAB Comment:Lipemia present BUN 8 5 - 25 mg/dL LAB CHEMISTRY METHOD 07/16/2024 2:12 PM [facility] LAB Creatinine 0.29(L) 0.50 - 1.10 mg/dL LAB CHEMISTRY METHOD 07/16/2024 2:12 PM [facility] LAB eGFR 111 >=60 mL/min/1. 73m2 LAB CHEMISTRY METHOD 07/16/2024 2:12 PM [facility] LAB Comment:Calculation based on the??Chronic Kidney Disease Epidemiology Collaboration (CKD-EPI) equation refit??without adjustment for race. BUN/Creatinine Ratio 27.6 LAB CHEMISTRY METHOD 07/16/2024 2:12 PM [facility] Calcium 8.7 8.5 - 10.5 mg/dL LAB CHEMISTRY METHOD 07/16/2024 2:12 PM [facility] AST (SGOT) 12 10 - 42 unit/L LAB CHEMISTRY METHOD 07/16/2024 2:12 PM [facility] LAB Comment:Lipemia present ALT (SGPT) 10 10 - 60 unit/L LAB CHEMISTRY METHOD 07/16/2024 2:12 PM [facility] LAB Comment:Lipemia present Alkaline Phosphatase 101 42 - 121 unit/L LAB CHEMISTRY METHOD 07/16/2024 2:12 PM [facility] LAB Total Protein 5.8(L) 6.0 - 8.0 g/dL LAB CHEMISTRY METHOD 07/16/2024 2:12 PM [facility] LAB Albumin 2.2(L) 3.2 - 5.0 g/dL LAB CHEMISTRY METHOD 07/16/2024 2:12 PM [facility] LAB Total Bilirubin 0.3 0.0 - 1.4 mg/dL LAB CHEMISTRY METHOD 07/16/2024 2:12 PM [facility] LAB Blood Venous blood specimen / Unknown Venipuncture / Unknown 07/16/2024 6:17 AM EST 07/16/2024 11:52 AM EST Rey Escalante MD LAB BLOOD ORDERABLES [facility] [address] [place], [place] [address] [phone] documented in this encounter Visit Diagnoses Diagnosis [...] documented as of this encounter Care Teams Clinical Rehabilitation Aide Relationship Specialty Start Date End Date Dale Pinto MD [address] [place] [address] PCP - General Internal Medicine 11/10/21 documented as of this encounter
--- OUTSIDE RECORDS SUMMARY | 2024-09-28 14:18 | XMS_ITS | Encounter Summary ---
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 (CMS/[facility]) Procedures [facility] IP/OBS CARE INITIAL MODERATE LEVEL PER DAY Dennis Hagan MD [address] [place] [address] [facility] [address] [address] Referral ID Status Reason Start Date Expiration Date Visits Re quested Visits Authorized [id number] 1 1 Encounter Details Date Type Department Care Team (Latest Contact Info) Description 09/17/2024 3:44 PM EST - 09/27/2024 9:10 AM EST Hospital Encounter [facility] Urology Unit [address] [place] [address] Rich Varner MD [address] [place] [address] Dennis Hagan MD [address] [place] [address] Bernardo Alcantara MD [address] [place], [place] [id number] Nancy Kc MD [address] [place] [address] 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 HCP, yunier Lopez worked with CM to arranged hospice services [...] Your Medications These medications were sent to [facility]/pharmacy #[id number] - [facility] [address] [address] acetaminophen 500 mg tablet You can get [...] Units Date/Time MR Thoracic Spine wo Contrast [[id number]] Collected: 09/21/24826 Order Status: Completed Updated: 09/21/24 0853 Narrative: PROCEDURE: Noncontrast MRI of the thoracic [...] Signed Date: 09/21/2024 08:47 ET Workstation ID: [id number] Transcribed By: Self Edit Transcribed Date: 09/21/2024 08:27 ET US Extremity Nonvascular Limited Right [[id number]] Resulted: 09/18/24 1138 Order Status: No result Updated: 09/18/24 1205 US Asp Abscess/Hematoma/Bulla/Cyst [[id number]] Collected: 09/18/24 1304 Order Status: Completed Updated: [...] Signed Date: 09/19/2024 14:55 ET Workstation ID: [id number] Transcribed By: Self Edit Transcribed Date: 09/18/2024 13:09 ET Resident/PA/COMPENSATION EXPERT: Rosaura Quintanilla CT Chest/Abdomen/Pelvis w Contrast [[id number]] Collected: 09/18/24 1143 Order Status: Completed Updated: [...] Signed Date: 09/18/2024 11:58 ET Workstation ID: [id number] Transcribed By: Self Edit Transcribed Date: 09/18/2024 11:52 ET XR Chest 1 View [[id number]] Collected: 09/18/24822 Order Status: Completed Updated: 09/18/24829 [...] Signed Date: 09/18/2024 08:25 ET Workstation ID: [id number] Transcribed By: Self Edit Transcribed Date: 09/18/2024 08:[address] Upper Extremity w Contrast Right [[id number]] Collected: 09/17/242133 Order Status: Completed Updated: 09/17/242134 [...] by Dr. Mcdowell - Follow up with [facility] in 2 weeks. If [...] to keep yourself hydrated. - Please call [facility] with any questions or concerns. [facility] [address] [place] [phone] documented in this encounter Medications at Time [...] rEF (heart failure with reduced ejection fraction) (CMS/[facility]) Take 0.25 mL (5 mg total) by [...] Transition Plan Initial Transition Plan Hospice Facility ([facility]) Discharge Planning Contact (Name, Phone #, Relationship) for DC Planning John Barrientos Yunier Emergency Contact [phone] Anticipated Discharge Needs Discipline following for SNF placement Tenderizer TenderElectrical Control Assembler Transportation at discharge [facility] providing transportation Kennett What day is the transport expected? 09/27/24 What time is the transport expected? 0900 Final Discharge Disposition Hospice Facility [facility] updated [facility] [place], Bedside team messaged, John Faye, called and [...] Shift Summary: Pt refusing all medication. 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 * Delvis Eden RN [...] to her son, MD notified and diet order/COMMERCIAL ATTACHE eval ordered. Pt took small amounts of soup, a few bites of ice cream and water & gingerale this shift. Son Ovi and Daughter Daniela updated. * Nancy Kc MD - 09/26/2024 3:54 PM EST Images from the original note were not included. GRETNA PROGRESS NOTE Date: 09/26/2024 Author: Nancy Kc MD Patient ID: Louann Barrientos is a 74 y.o. female : 1950 MR#: [id number] SUBJECTIVE CC: Here with R septic shoulder, bacteremia. Currently NURSE EMERGENCY ROOM. She is more alert today, aware that she is in the hospital and could tell me because of her infection. She is convinced she cannot use her arms because of her surgery in the right shoulder, and she understands that this all lefty medications are currently stopped. She says _I had really nice And I trust his judgment, it may be for the best. She asked me for some edward mick, she wanted called, I was able to help her drink. Later COMMERCIAL ATTACHE eval was requested and diet ordered. ROS: [...] planned, reviewed with CM. HCP -son John [phone] - I met him and his sister on 09/24, care reviewed. * Tia Carrington RN - 09/26/2024 3:43 PM EST 09/26/24 1542 Initial Transition Plan Initial Transition Plan Hospice Facility ([facility]) Anticipated Discharge Needs Discipline following for SNF placement Tenderizer TenderElectrical Control Assembler Transportation at discharge [facility] providing transportation Baljinder What day is the transport expected? 09/27/24 What time is the transport expected? 0900 Final Discharge Disposition Hospice Facility KYLEE planned for 09/27 @ 9AM after Pt's son delivers co-pay down payment to [facility] after work tonight. * JHON Cain - 09/26/2024 2:55 PM EST Images from the original note were not included. Speech Language Pathology [facility] COMMERCIAL ATTACHE BEDSIDE SWALLOW EVALUATION NAME: Louann Barrientos DATE OF : 1950 ROOM: [address] [place] [address] COMMERCIAL ATTACHE Received On: 09/26/24 Veterinary Anatomist Required: No TIME IN: 1400 TIME OUT: [...] shoulder due to other bacteria ([facility]/HCC) Date Noted: 09/17/2024 Resolved Problems: * No resolved hospital problems. 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 PAST MEDICAL HISTORY: Past Medical History: Diagnosis Date Raynaud disease DX:Raynaud disease Rheumatoid arthritis ([facility]/HCC) DX:Rheumatoid arthritis (HCC) Sicca ([facility]) DX:Sicca ([facility]) PAST SURGICAL HISTORY: Past Surgical History: Procedure Laterality Date LEG SURGERY Left 11/16/2022 PROCEDURE:LEG SURGERY;COMMENT:Procedure: I&D LEFT LOWER EXTREMITY; Surgeon: Robbie Villagran MD;Location: [facility] MAIN OPERATING ROOM; Service: Orthopedic Trauma; Laterality: Left; OTHER SURGICAL HISTORY Left 10/16/2022 PROCEDURE:ORIF FEMORAL SHAFT FRACTURE W/ PLATES AND SCREWS;COMMENT:Procedure: REPAIR NONUNION LEFT FEMUR/ORIF LEFT FEMUR; Surgeon: Robbie Villagran MD; Location: [facility] MAIN OPERATING ROOM; Service: Orthopedic Trauma; Laterality: [...] Signed Date: 09/18/2024 08:25 ET Workstation ID: [id number] Transcribed By: Self Edit Transcribed Date: 09/18/2024 [...] Signed Date: 08/13/2024 10:08 ET Workstation ID: [id number] Transcribed By: Self Edit Transcribed Date: 08/13/2024 10:[address] No results found for this or any previous visit. NIH Stroke Scale: ALLERGIES: Allergies Allergen Reactions Other Swelling Styrofoam Penicillins Pineapple Per [facility] record, pt has an allergy to pineapple, [...] PO Recommended Medication Administration: Crushed (in puree) COMMERCIAL ATTACHE ASSESSMENT: COMMERCIAL ATTACHE Assessment Results: Swallowing impairments Dysphagia Diagnosis: (oropharyngeal dysphagia) Evaluation/Treatment Tolerance: Patient limited by fatigue Medical Staff Made Aware: Yes Comments: Disucessed w/ RN and message sent to provider CURRENT DIET: Dietary Orders (From admission, onward) Start Ordered 09/26/24 1113 Adult diet [facility]; General, Modified Consistency Options for Liquids and Solids; Regular; IDDSI Level 5 Minced & Moist Diet effective now Question Answer Comment Location [facility] Diet Type (req) General Diet Type (req) Modified Consistency Options for Liquids and Solids General Diet Regular Modified Consistency Options for Liquids and Solids IDDSI Level 5 Minced & Moist 09/26/24 1113 PLAN OF CARE COMMERCIAL ATTACHE PLAN Treatment/Interventions: Swallow function COMMERCIAL ATTACHE Plan: Skilled COMMERCIAL ATTACHE COMMERCIAL ATTACHE Frequency: 2-5 days per week COMMERCIAL ATTACHE Treatments per day: 1 time per day COMMERCIAL ATTACHE - Evaluation Status: Complete Diet Recommendations: Full liquid diet DISCHARGE RECOMMENDATIONS Ongoing Skilled Speech-Language Pathology (COMMERCIAL ATTACHE) services at next level of care. EDUCATION Education Documentation Modified Diet Training, taught by Holli Stinson, COMMERCIAL ATTACHE at 09/26/2024 2:54 PM. Learner: Patient Readiness: [...] are no resolved problems. Associated attestation - Mamie Munroe SLP - 09/26/2024 4:48 PM EST I attest that I, Norah Munroe M.S.,[facility]-COMMERCIAL ATTACHE, was physically involved in the ongoing assessment, decision making, and interventions provided during today's patient care session. I have reviewed all documentation for today's 09/26/24, entered by Speech Therapy Fellow, Holli Stinson, and further attest that it is an accurate clinical record of today's encounter, including accurate and appropriate charges. * Tia Carrington RN - 09/26/2024 11:19 AM EST MINERVA: TAMIKO montalvo Barriers: [facility] given contact info of family and asked to contact them to arrange payment, PVR trying to get in contact w Pt's admitted attorneys to arrange payment and has been unsuccessful. [facility] called John Barrientos, Son, Emergency Contact, to see if Pt has a checkbook and can sign a check to pay for deposit to [facility]. Ovi says she does and can bring [...] they need just a regular Power of Reporting Specialist, they need to ask an admitted attorneys to do one. I could try to find some elder law attorneys toprovide but any admitted attorneys can draw one. Info forwarded to [facility]. Perhaps Pt's existing Atty can assist. * Khadijah Son RN - 09/26/2024 1:51 AM EST Goals: Problem: Falls: Fall Risk (Adult IP BH) Goal: (Goal) Patient will experience maximum safety and reduce risk for falls. 09/26/2024 015 by Khadijah Chaudhari RN Outcome: [...] a 74 y.o. female : 1950 MR#: [id number] SUBJECTIVE CC: Here with R septic shoulder, bacteremia. Currently NURSE EMERGENCY ROOM. She is somnolent, opens eyes on command [...] Signed Date: 09/21/2024 08:47 ET Workstation ID: [id number] Transcribed By: Self Edit Transcribed Date: 09/21/2024 [...] planned, reviewed with CM. HCP -son John [phone] - I met him and his sister on 09/24, care reviewed. * Tia Carrington RN - 09/25/2024 2:58 PM EST [facility] s/w John, HCP and discussed KYLEE. In agreement w/ [facility] pending financial arrangements with Pt's admitted attorneys. [facility] called [facility] aboriginal liaison officer to see if arrangements have been completed and learned theyhave not heard back from Reporting Specialist. * Gertrude Mackenzie - 09/25/2024 2:26 PM [...] have facilitys and prices. Fely to call [facility] tomorrow with choice, he is aware he [...] a 74 y.o. female : 1950 MR#: [id number] SUBJECTIVE CC: Here with R septic shoulder, bacteremia. Currently NURSE EMERGENCY ROOM. Seen first time. She is somnolent, denies [...] Signed Date: 09/21/2024 08:47 ET Workstation ID: [id number] Transcribed By: Self Edit Transcribed Date: 09/21/2024 [...] Code status -DNR/DNI Dispo -pending placement HCP -yunier Lopez [phone] * Becky Busch RN - 09/24/2024 11:51 AM EST CM Progress Note MINERVA: 09/26 Barriers: Hospice informational with [facility] 09/24 pm, need to give rates of accepting facilitys to family and they will need to bring check to facility if they choose to go the hospice route. Plan: SNF ? On hospice, family meeting with [facility] Tuesday pm-patient came from [facility] and is a private pay bedhold. * JAKE Gan - 09/24/2024 11:43 AM EST Orthopedic trauma surgery progress note for right shoulder septic arthritis s/p arthroscopic debridement right shoulder. Chief Complaint Patient presents with Blood Infection . Subjective Louann has been made NURSE EMERGENCY ROOM. Found resting comfortable in bed. Assessment Septic arthritis R shoulder s/p arthroscopic debridement R shoulder Bacteremia Patient made NURSE EMERGENCY ROOM. Reinforce and change right shoulder dressing prn. Orthopedics will sign off. Please reconsult if medically necessary. Discussed and reviewed with Dr. Mcdowell, orthopedic surgery attending. JAKE Gan Orthopedic Surgery 09/24/2024 11:43 AM EST * Mary Cnostantino RD - 09/24/2024 7:44 AM EST Nutrition [...] not able to take her home. Eloise [phone], daughter Daniela [phone] Family has chosen [facility] in [place]. Info sent to PV to contact son Fely * JAKE Pyle - 09/23/2024 11:02 AM EST Louann Barrientos 09/17/[birth year] 74 y.o. [id number] Bernardo Alcantara MD SUBJECTIVE : Staff reported [...] patient and patient's son have decided for NURSE EMERGENCY ROOM. [facility] updated. Pending disposition. Bacteremia Severe sepsis [...] medication including beta-stacey. This morning, patient made NURSE EMERGENCY ROOM. Case discussed with Dr Alcantara Time spent: 60 minutes. Disclaimer: Speech recognition software was utilized to dictate portions of this document. Errors in ups driver may be present. Please call / cortext [...] EST Louann Barrientos 09/17/[birth year] 74 y.o. [id number] Bernardo Alcantara MD SUBJECTIVE : Reporting inability [...] days Lab Units 09/22/24 0821 09/22/24 0559 09/21/24200809/21/24 1845 09/21/24 1220 POCT GLUCOSE mg/dL 85 [...] rest of vital sign was stable. CBC showed leukocytosis 19.8. CT of right shoulder showed large [...] dictate portions of this document. Errors in ups driver may be present. Please call / cortext [...] Signed Date: 09/21/2024 08:47 ET Workstation ID: [id number] Transcribed By: Self Edit Transcribed Date: 09/21/2024 [...] Signed Date: 09/19/2024 14:55 ET Workstation ID: [id number] By: Self Edit Transcribed Date: 09/18/2024 13:09 ET Resident/PA/COMPENSATION EXPERT: Rosaura Quintanilla Transthoracic echocardiogram (TTE) complete with [...] Signed Date: 09/18/2024 11:58 ET Workstation ID: [id number] Transcribed By: Self Edit Transcribed Date: 09/18/2024 [...] Signed Date: 09/18/2024 08:25 ET Workstation ID: [id number] Transcribed By: Self Edit Transcribed Date: 09/18/2024 [...] medical history of Raynaud disease, Rheumatoid arthritis ([facility]), and Sicca ([facility]).. The patient was admitted to the hospital [...] BMP and fax to my office at [phone] Isolation: none I personally spent 35 minutes [...] OM R shoulder, washout 09/19 Dispo: from [facility]- Bed hold * JAKE Pyle - 09/21/2024 12:57 PM EST Louann Barrientos 09/17/2024 1950 74 y.o. [id number] Bernardo Alcantara MD SUBJECTIVE : Reporting inability [...] dictate portions of this document. Errors in ups driver may be present. 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 ([facility]) Past Medical History: Diagnosis Date Raynaud disease DX:Raynaud disease Rheumatoid arthritis ([facility]/HCC) DX:Rheumatoid arthritis (HCC) Sicca ([facility]) DX:Sicca ([facility]) Past Surgical History: Procedure Laterality Date LEG SURGERY Left 11/16/2022 PROCEDURE:LEG SURGERY;COMMENT:Procedure: I&D LEFT LOWER EXTREMITY; Surgeon: Robbie Villagran MD;Location: [facility] MAIN OPERATING ROOM; Service: Orthopedic Trauma; Laterality: Left; OTHER SURGICAL HISTORY Left 10/16/2022 PROCEDURE:ORIF FEMORAL SHAFT FRACTURE W/ PLATES AND SCREWS;COMMENT:Procedure: REPAIR NONUNION LEFT FEMUR/ORIF LEFT FEMUR; Surgeon: Robbie Villagran MD; Location: [facility] MAIN OPERATING ROOM; Service: Orthopedic Trauma; Laterality: Left; TOTAL HIP ARTHROPLASTY Right PROCEDURE:TOTAL HIP ARTHROPLASTY Social History Home Living Environment: Home Living Type of Home: [facility] Lives With: Alone Home Adaptive Equipment: Walker - rolling Home Layout: One level Home Access: Level entry Prior Function Level of Ewing: Independent with mobility and functional transfers Ambulation [...] Home Subacute rehab Prior Function Level of Ewing Needs assistance with functional transfers Ambulation Status [...] 1 time per day PT Discharge Recommendations [facility] facility placement PT - Evaluation Status Complete [...] [facility] for Septic arthritis([facility]) [M00.9] 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 Pt presents with decreased BLE strength, balance deficits, decreased activity tolerance, and far below functional baseline. Pt performed bed mobility Dependent, Bedrail, HOB elevated, and Therapist assist, Transfers with Dependent and x2, None . Pt will benefit from skilled acute PT during hospital stay to improve the deficits listed above and optimize function. PT recommends [facility] facility placement when medically stable for safe [...] No comments found. Haley Borrego PT * Abran SamayoaJAKE Boykin - 09/20/2024 1:08 PM EST Louann Vila Iliana 09/17/2024 1950 74 y.o. [id number] Bernardo Alcantara MD SUBJECTIVE : No shoulder [...] dictate portions of this document. Errors in ups driver may be present. Please call / cortext [...] discussed with nursing and [facility] * Norah Magallanesckett, OT - 09/20/2024 11:00 AM EST [facility] Occupational Therapy Evaluation DATE: September TIME IN: 1100 TIME OUT: 1145 Pt: Louann Kaseycarson ROOM: [address] [place] [address] Discharge Recommendation: [facility] facility Equipment Recommendation: walker Staff recommendations for [...] List Diagnosis NSTEMI (non-ST elevated myocardial infarction) ([facility]) HFrEF (heart failure with reduced ejection fraction) ([facility]) Septic arthritis ([facility]) 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 ([facility]) Past Medical History: Diagnosis Date Raynaud disease DX:Raynaud disease Rheumatoid arthritis ([facility]/HCC) DX:Rheumatoid arthritis (HCC) Sicca ([facility]/HCC) DX:Sicca (HCC) Past Surgical History: Procedure Laterality Date LEG SURGERY Left 11/16/2022 PROCEDURE:LEG SURGERY;COMMENT:Procedure: I&D LEFT LOWER EXTREMITY; Surgeon: Robbie Villagran MD;Location: [facility] OPERATING ROOM; Service: Orthopedic Trauma; Laterality: Left; OTHER SURGICAL HISTORY Left 10/16/2022 PROCEDURE:ORIF FEMORAL SHAFT FRACTURE W/ PLATES AND SCREWS;COMMENT:Procedure: REPAIR NONUNION LEFT FEMUR/ORIF LEFT FEMUR; Surgeon: Robbie Villagran MD; Location: [facility]IN OPERATING ROOM; Service: Orthopedic Trauma; Laterality: [...] Access Level entry Prior Function Level of Ewing Independent with mobility and functional transfers Ambulation [...] - Evaluation Status Complete OT Discharge Recommendations [facility] facility placement (d/c to next level of [...] - Evaluation Status: Complete OT Discharge Recommendations: [facility] facility placement (d/c to next level of care) Equipment Recommended: Walker-rolling Encounter Problems Encounter Problems (Active) There are no active problems. Encounter Problems (Resolved) There are no resolved problems. Norah Myaa OT * JAKE Edwards - 09/20/2024 8:18 [...] discussed with and agreed to by JAKE Delaney-Shailesh * Ruth Mars RN - 09/19/2024 2:50 PM EST 09/19/24 1447 Initial Transition Plan Initial Transition Plan (Pt is from [facility]) Discharge Planning Living Arrangements Other (Comment) Type of Residence Other (Comment) (Pt comes from [facility]) Assistive Devices Walker;Wheelchair Support Systems Children;Friends;Home care staff Anticipated Discharge Needs Discipline following for SNF placement Tenderizer Tender [facility] spoke with pt's son John. John reported pt comes from [facility] and has been in and outof rehab facilities recently. John reported he received a phone call from [facility] requestingpayment to keep her bed. John requested to get a medical update from the provider and also reported he would like to speak with his mother regarding this. [facility] notified provider of request from jewel jeronimo for an update. * JAKE Pyle - 09/19/2024 1:46 PM EST Louann Barrientos 09/17[birth year] 74 y.o. [id number] Bernardo Alcantara MD SUBJECTIVE : Patient seen [...] dictate portions of this document. Errors in ups driver may be present. Please call / cortext [...] CC: Right shoulder septic arthritis HPI: 74-year-old [id number] female R. A. 09/17/2024 admitted to [facility] for right shoulder pain Imaging study significant right shoulder multiloculated joint effusion Bacteremia positive MSSA 09/18/2024 IR consultation aspiration 09/18/2024 ID consultation initiation of antibiotics 09/18/2024 orthopedic consultation for surgical irrigation debridement Plan: Right shoulder irrigation debridement HUNTER Mcdowell MD * Mary Constantino, RD - 09/19/2024 7:59 AM EST 09/19/2024 [...] onward) Start Ordered 09/19/24 0757 Adult diet [facility]; General, Fluid Restriction, Cardiac; Regular; Fluid Restriction 1500 mL; Sodium 2 gm Restriction Diet effective now Question Answer Comment Location [facility] Diet Type (req) General Diet Type (req) [...] LEFT LOWER EXTREMITY; Surgeon: Robbie Villagran MD;Location: [facility]IN OPERATING ROOM; Service: Orthopedic Trauma; Laterality: Left; OTHER SURGICAL HISTORY Left 10/16/2022 PROCEDURE:ORIF FEMORAL SHAFT FRACTURE W/ PLATES AND SCREWS;COMMENT:Procedure: REPAIR NONUNION LEFT FEMUR/ORIF LEFT FEMUR; Surgeon: Robbie Villagran MD; Location: [facility] MAIN OPERATING ROOM; Service: Orthopedic Trauma; Laterality: Left; TOTAL HIP ARTHROPLASTY Right PROCEDURE:TOTAL HIP ARTHROPLASTY admitted 09/17/2024 with Septic arthritis (CMS/[facility]). Food/Nutrition History: Self-selected diet(s) followed: Pt sleeping soundly this morning on attempted interview and again this evening. Pt had irrigation and debridement of shoulder today, diet resumed but pt appears too sleepy to consume dinner. Appetite BUILDING CONTRACTOR: Other (Comment) (limited data) Weight History: Wt Readings from Last 10 Encounters: 09/19/24 45.8 kg (101 lb) 08/14/24 47.7 kg (105 lb 3.2 oz) Subjective Assessment: Pt presents with septic arthritis, status post irrigation and debridement. Diet resumed. Has previously reported to this sports book writer that she has burning mouth syndrome [...] Energy Estimated Needs: 30-35 kcal/kg/day for wounds, 7081-3070 kcal/day. 1.2 up to 1.5 gm/kg/day, 55-69 gm/day, fluid 25-30 ml/kg/day, 7656-4611 ml /day Height: 154.9 cm (60.98 ) Temp: 36.3 ??C (97.3 ??F) Food/Nutrition-Current Status: Intake Type: P.O. Current Diet Status: Appropriate Current Supplement Status: Other (Comment) (Not ordered, Pt known to this sports book writer has declined supplements at times in [...] EST Louann Barrientos 09/17/2024 1950 74 y.o. [id number] Bernardo Alcantara MD SUBJECTIVE : Confused patient. [...] dictate portions of this document. Errors in ups driver may be present. 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 ([facility]) 09/17/2024 HFrEF (heart failure with reduced ejection fraction) ([facility]) 08/11/2024 NSTEMI (non-ST elevated myocardial infarction) ([facility]) 08/09/2024 Wound History: Nutritional Status: Patient is [...] Tissue Assessment Red 09/18/24 0815 Selena-Wound Assessment Imbler 09/18/24 0328 Dressing Status Other (Comment) 09/18/24 0328 Wound Moisture Associated Dermatitis 09/18/24 Breast Lower;Right (Active) Wound Image 09/18/24 1059 Wound Bed Tissue Assessment Red;Excoriated 09/18/24 0815 Selena-Wound Assessment Imbler 09/18/24 0329 Dressing Status Other (Comment) 09/18/24 0329 Wound Pressure Injury 09/18/24 Toe D2, Second Anterior;Right (Active) Wound Image 09/18/24 1051 Wound Bed Tissue Assessment Dry;Imbler 09/18/24 0815 Selena-Wound Assessment Dry 09/18/24 0330 [...] it will hurt my skin . This sports book writer sat with patient for 30 min and educated her on her ordered medications and antibiotics, as well as the possible side effects, pt refused all medications. This sports book writer explained to the patient the significance of the antibiotics because of her elevated WBC and her infection and reminded her the infection could get worse without her antibiotics to which she replied I know, I will take them tomorrow . Pt made aware that this sports book writer notified provider regarding refusal to whichpatient [...] pt then trying to climb OOB, called 9-1- 5x asking them to send strong men [...] tonight: CT Upper Extremity w Contrast Right [[id number]]Collected: 09/17/242133Order Status: CompletedUpdated: 09/17/242134Narrative: Exam: Contrast-enhanced CT [...] infectious concerns): [] Yes / [] No Sales Representative [employer]: [] Yes / [] No If YES, Cardiac Rhythm: [] NSR, [] SB, [] ST, [] A-FIB, [] A-Flutter, [] Pacemaker, [] 1st Degree HB, [] 2nd Degree HB, [] 3rd Degree HB Reason for Sales Representative [employer]: VS: Visit Vitals BP (!) 143/62 (BP [...] see chart Submitted by and Phone Extension: [phone] * Gabriel Pang RN - 09/17/2024 3:45 PM EST Patient coming from [facility] with elevated wbc. Unknown source * Rich [...] LEFT LOWER EXTREMITY; Surgeon: Robbie Villagran MD;Location: [facility] MAIN OPERATING ROOM; Service: Orthopedic Trauma; Laterality: Left; OTHER SURGICAL HISTORY Left 10/16/2022 PROCEDURE:ORIF FEMORAL SHAFT FRACTURE W/ PLATES AND SCREWS;COMMENT:Procedure: REPAIR NONUNION LEFT FEMUR/ORIF LEFT FEMUR; Surgeon: Robbie Villagran MD; Location: [facility] MAIN OPERATING ROOM; Service: Orthopedic Trauma; Laterality: [...] Detected Narrative: Testing was performed using the Promimic Respiratory Pathogen PCR Assay. All results must [...] Procedure Abnormality Status --------- ------ CBC auto differential[[id number]] In process Please view results for these tests on the individual orders. COMPREHENSIVE METABOLIC PANEL URINALYSIS WITH REFLEX MICROSCOPIC AND CULTURE Narrative: The following orders were created for panel order Urinalysis with reflex microscopic and culture. Procedure Abnormality Status --------- ------ Urinalysis with reflex ...[[id number]] Waters urine culture tube[[id number]] Please view results for these tests on [...] time range) Clinical Impressions as of 09/17/24 184 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 ([facility]) 74-year-old female with acute right shoulder pain. Differential to include traumatic, rheumatoid arthritis, septic arthritis, strain, contusion Plan was already set in place prior to arrival. She is to get a CAT scan of her right shoulder and admission to [place] to consider antibiotics after cultures. Procedures Procedures Diagnosis 1. 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 ([facility]/HCC) Disposition Admit to Inpatient ED Prescriptions None Physician Attestation Rich Varner MD 09/17/24 910 documented in this encounter H&P Notes * JAKE Carrero - 09/17/2024 6:05 PM EST Images from the original note were not included. LOUIE HISTORY AND PHYSICAL Please contact author [JAKE Mota] via EBOOK[employer]LACE/Telepartner. Patient: Louann Barrientos Admission Date/Time: 09/17/2024 3:44 PM : 1950 [74 y.o.] Patient's PCP: Dale Pinto MD Attending Provider: Rich Varner MD;Nerm* CHIEF COMPLAINT: Right shoulder septic arthritis r/o HPI: 74-year-old female with PMH of rheumatoid arthritis, HFrEF, Sjogren's syndrome, chronic anemia, Raynaud's syndrome and anxiety presents to the ED from [facility] for concern for right shoulder septic arthritis [...] the medial aspect She states a nurse visitor services information assistant was helping her stand and had [...] arthritis r/o [facility] for concern of elevated WBC 19k and XR that showed an effusion of the right shoulder She did report a few days ago having a CAREER DEVELOPMENT COORDINATOR/TEACHER help her w/ a transfer which resulted [...] 3.125 mg twice daily FULL CODE HCP: yunier Lopez [phone] PPX: Pneumoboots Case and plan discussed with: [...] in this encounter Consult Notes * Mary LeijaraizaAshjd, KATALINA - 09/21/2024 4:24 PM ESTAssociated Order(s): IP [...] 19 BMI Class: Normal UBW (lbs): ([facility] weight listed at 48 kg 06/27/24, now listed at 44.5 kg, possible loss of 5% over 3 months) Current Diet and Supplements: Dietary Orders (From admission, onward) Start Ordered 09/21/24 0958 Dietary nutrition supplements Three times daily (TID); [facility]; Standard Small Volume Continuous Comments: Vary flavor Question Answer Comment Frequency Three times daily (TID) Location [facility] Supplements Standard Small Volume 09/21/24 0958 09/19/24 0757 Adult diet [facility]; General, Fluid Restriction, Cardiac; Regular; Fluid Restriction 1500 mL; Sodium 2 gm Restriction Diet effective now Question Answer Comment Location [facility] Diet Type (req) General Diet Type (req) [...] LEFT LOWER EXTREMITY; Surgeon: Robbie Villagran MD;Location: [facility] MAIN OPERATING ROOM; Service: Orthopedic Trauma; Laterality: Left; OTHER SURGICAL HISTORY Left 10/16/2022 PROCEDURE:ORIF FEMORAL SHAFT FRACTURE W/ PLATES AND SCREWS;COMMENT:Procedure: REPAIR NONUNION LEFT FEMUR/ORIF LEFT FEMUR; Surgeon: Robbie Villagran MD; Location: [facility]IN OPERATING ROOM; Service: Orthopedic Trauma; Laterality: Left; TOTAL HIP ARTHROPLASTY Right PROCEDURE:TOTAL HIP ARTHROPLASTY admitted 09/17/2024 with Septic arthritis ([facility]). Food/Nutrition History: Self-selected diet(s) followed: PT provided only a breif interview before stating she was not up for talking this afternoon. Per [employer] record, pt had allergy to pineapple (entered) [...] report that she likes Big Macs. 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 1.2 up to 1.5 gm/kg/day, 55-69 gm/day, fluid 25-30 ml/kg/day, 4883-6339 ml /day Height: 154.9 cm (60.98 ) Temp: 36.3 ??C (97.3 ??F) Food/Nutrition-Current Status: Intake Type: P.O. Current Diet Status: Other (Comment) (Po is poor, pt may benefit from liberal diet) Current Supplement Status: Other (Comment) (Not ordered, Pt known to this sports book writer has declined supplements at times in [...] with RN. and Discussed with provider(s) via EBOOK[employer] Secure Chat/Haiku regarding supplement. Monitoring/Evaluation: Fluid/Beverage Intake, [...] medical history of Raynaud disease, Rheumatoid arthritis (CMS/HCC), and Sicca (CMS/[facility]).. The patient was admitted to the hospital [...] Rheumatoid arthritis (CMS/HCC) DX:Rheumatoid arthritis (HCC) Sicca (CMS/[facility]) DX:Sicca ([facility]) Surgical History: Past Surgical History: Procedure Laterality Date LEG SURGERY Left 11/16/2022 PROCEDURE:LEG SURGERY;COMMENT:Procedure: I&D LEFT LOWER EXTREMITY; Surgeon: Robbie Villagran MD;Location: [facility] MAIN OPERATING ROOM; Service: Orthopedic Trauma; Laterality: Left; OTHER SURGICAL HISTORY Left 10/16/2022 PROCEDURE:ORIF FEMORAL SHAFT FRACTURE W/ PLATES AND SCREWS;COMMENT:Procedure: REPAIR NONUNION LEFT FEMUR/ORIF LEFT FEMUR; Surgeon: Robbie Villagran MD; Location: [facility]IN [facility]PERATING ROOM; Service: Orthopedic Trauma; Laterality: [...] 1 capsule by mouth daily. 08/03/24 Historical Provider, aspirin 81 mg EC tablet Take 1 tablet (81 mg total) by mouth 1 (one) time each day. 11/19/22 Historical Provider, atorvastatin (LIPITOR) 80 mg tablet Take 1 [...] Take 3 capsules by mouth daily. 08/03/24 Historical Provider, spironolactone (ALDACTONE) 25 mg tablet Take 1 [...] 09/18/2024 318 QTc 09/18/2024 449 P Wave Marion 09/18/2024 58 R Marion 09/18/2024 6 T Marion 09/18/2024 29 ECG Interpretation 09/18/2024 Value:Sinus tachycardia [...] Signed Date: 09/18/2024 11:58 ET Workstation ID: [id number] Transcribed By: Self Edit Transcribed Date: 09/18/2024 [...] Signed Date: 09/18/2024 08:25 ET Workstation ID: [id number] Transcribed By: Self Edit Transcribed Date: 09/18/2024 08:23 ET Assessment/Plan Louann Barrientso is a 74 y.o. female who has a past medical history of Raynaud disease, Rheumatoid arthritis ([facility]), and Sicca ([facility]).. The patient was admitted to the hospital [...] medical history of Raynaud disease, Rheumatoid arthritis (CMS/HCC), and Sicca (CMS/HCC). Surgical History She has a past surgical [...] right shoulder due to other bacteria (CMS/HCC) Plan for US guided right shoulder aspiration [...] demonstrated an effusion so patient presented to [facility] ED. On arrival, vitals were remarkable [...] medical history of Raynaud disease, Rheumatoid arthritis (CMS/HCC), and Sicca (CMS/HCC). PAST SURGICAL HISTORY She has a past [...] Signed Date: 09/18/2024 08:25 ET Workstation ID: [id number] Transcribed By: Self Edit Transcribed Date: 09/18/2024 [...] with and agreed to by JAKE Delaney-C documented in this encounter Plan of Treatment [...] (ABNORMAL) C-reactive protein (09/24/2024 7:45 AM EST) C-Reactive Protein 3.62(H) <=0.50 mg/dL LAB CHEMISTRY METHOD 09/24/2024 8:43 AM EST [facility] Blood Venous blood specimen / Unknown Venipuncture / Unknown 09/24/2024 7:45 AM EST 09/24/2024 8:10 AM EST Freya JOSEPH LAB BLOOD ORDERABLES [facility] [address] [place] [address], [place] [phone] * (ABNORMAL) POCT Glucose, blood (09/23/2024 11:09 AM EST) Glucose POCT 126(H) 70 - 100 mg/dL 09/23/2024 11:11 AM EST [facility] Blood Capillary blood specimen / Unknown 09/23/2024 11:09 AM EST 09/23/2024 11:12 AM EST Bernardo Alcantara MD LAB POINT OF CARE TE ST DOCKED DEVICE UNSOLICITED RESULTS Performing Organization Address City/[facility]/ZIP Co de Phone Number [facility] [address] [place] [address], [place] [phone] * (ABNORMAL) POCT Glucose, blood (09/23/2024 8:21 AM EST) Glucose POCT 129(H) 70 - 100 mg/dL 09/23/2024 8:22 AM EST [facility] Blood Capillary blood specimen / Unknown 09/23/2024 8:21 AM EST 09/23/2024 8:23 AM EST Bernardo Alcantara MD LAB POINT OF CARE TE ST DOCKED DEVICE UNSOLICITED RESULTS [facility] [address] [place] [address], [place] [phone] * (ABNORMAL) CBC auto differential (09/23/2024 5:30 AM EST) WBC 15.9(H) 4.8 - 10.8 K/[facility] LAB HEMETOLOGY METHOD 09/23/2024 6:48 AM EST [facility] RBC 3.70(L) 3.80 - 4.80 /[facility] LAB HEMETOLOGY METHOD 09/23/2024 6:48 AM [facility] Hemoglobin 8.3(L) 11.5 - 16.0 g/dL LAB HEMETOLOGY METHOD 09/23/2024 6:48 AM [facility] Hematocrit 28.0(L) 35.0 - 47.0 % LAB HEMETOLOGY METHOD 09/23/2024 6:48 AM [facility] MCV 75.1(L) 79.0 - 98.0 FL LAB HEMETOLOGY METHOD 09/23/2024 6:48 AM [facility] MCH 22.3(L) 27.0 - 32.0 pcg LAB HEMETOLOGY METHOD 09/23/2024 6:48 AM [facility] MCHC 29.6(L) 32.0 - 37.0 g/dL LAB HEMETOLOGY METHOD 09/23/2024 6:48 AM [facility] RDW 22.1(H) 11.0 - 15.0 % LAB HEMETOLOGY METHOD 09/23/2024 6:48 AM [facility] Platelets 652(H) 130 - 400 K/mcL LAB HEMETOLOGY METHOD 09/23/2024 6:48 AM [facility] MPV 9.4 7.0 - 11.0 FL LAB HEMETOLOGY METHOD 09/23/2024 6:48 AM [facility] NRBC 0.0 <1.0 % LAB HEMETOLOGY METHOD 09/23/2024 6:48 AM [facility] NRBC Absolute 0.00 <0.10 K/mcL LAB HEMETOLOGY METHOD 09/23/2024 6:48 AM [facility] Neutrophils Relative 84.7 % LAB HEMETOLOGY METHOD 09/23/2024 6:48 AM [facility] Lymphocytes Relative 7.5 % LAB HEMETOLOGY METHOD 09/23/2024 6:48 AM [facility] Monocytes Relative 6.5 % LAB HEMETOLOGY METHOD 09/23/2024 6:48 AM EST [facility] Eosinophils Relative 0.0 % LAB HEMETOLOGY METHOD 09/23/2024 6:48 AM [facility] Basophils Relative 0.2 % LAB HEMETOLOGY METHOD 09/23/2024 6:48 AM EST [facility] Immature Granulocytes Relative 1.1 % LAB HEMETOLOGY METHOD 09/23/2024 6:48 AM [facility] Neutrophils Absolute 13.49(H) 1.50 - 7.00 K/mcL LAB HEMETOLOGY METHOD 09/23/2024 6:48 AM [facility] Lymphocytes Absolute 1.20 1.00 - 5.00 K/mcL LAB HEMETOLOGY METHOD 09/23/2024 6:48 AM EST [facility] Monocytes Absolute 1.04(H) 0.20 - 1.00 K/mcL LAB HEMETOLOGY METHOD 09/23/2024 6:48 AM [facility] Eosinophils Absolute 0.00 0.00 - 0.50 K/mcL LAB HEMETOLOGY METHOD 09/23/2024 6:48 AM EST [facility] Basophils Absolute 0.03 0.00 - 0.20 K/mcL LAB HEMETOLOGY METHOD 09/23/2024 6:48 AM [facility] Immature Granulocytes Absolute 0.17(H) 0.00 - 0.03 K/mcL LAB HEMETOLOGY METHOD 09/23/2024 6:48 AM [facility] Blood Venous blood specimen / Unknown Venipuncture / Unknown 09/23/2024 5:30 AM EST 09/23/2024 6:32 AM EST Abran JOSEPH LAB BLOOD ORDERAB LES [facility] [address] [place] [address], [place] [phone] * (ABNORMAL) Basic metabolic panel (09/23/2024 5:30 AM EST) Sodium 143 133 - 145 mmol/L LAB CHEMISTRY METHOD 09/23/2024 7:38 AM [facility] Potassium 3.8 3.5 - 5.5 mmol/L LAB CHEMISTRY METHOD 09/23/2024 7:38 AM [facility] Chloride 109 96 - 110 mmol/L LAB CHEMISTRY METHOD 09/23/2024 7:38 AM [facility] CO2 25 21 - 32 mmol/L LAB CHEMISTRY METHOD 09/23/2024 7:38 AM [facility] Anion Gap 9 3 - 11 LAB CHEMISTRY METHOD 09/23/2024 7:38 AM [facility] Glucose 114(H) 70 - 100 mg/dL LAB CHEMISTRY METHOD 09/23/2024 7:38 AM [facility] BUN 10 5 - 25 mg/dL LAB CHEMISTRY METHOD 09/23/2024 7:38 AM [facility] Creatinine 0.36(L) 0.50 - 1.10 mg/dL LAB CHEMISTRY METHOD 09/23/2024 7:38 AM [facility] eGFR 105 >=60 mL/min/1. 73m2 LAB CHEMISTRY METHOD 09/23/2024 7:38 AM [facility] Comment:Calculation based on the??Chronic Kidney Disease Epidemiology Collaboration (CKD-EPI) equation refit??without adjustment for race. BUN/Creatinine Ratio 27.8 LAB CHEMISTRY METHOD 09/23/2024 7:38 AM [facility] Calcium 8.5 8.5 - 10.5 mg/dL LAB CHEMISTRY METHOD 09/23/2024 7:38 AM [facility] Blood Venous blood specimen / Unknown Venipuncture / Unknown 09/23/2024 5:30 AM EST 09/23/2024 6:32 AM EST Abran JOSEPH LAB BLOOD ORDERAB LES Performing Organization Address [facility]/ZIP Co de Phone Number [facility] [address] [place] [address], [place] [phone] * POCT Glucose, blood (09/22/2024 9:12 PM EST) Glucose POCT 96 70 - 100 mg/dL 09/22/2024 9:13 PM EST [facility] Blood Capillary blood specimen / Unknown 09/22/2024 9:12 PM EST 09/22/2024 9:14 PM EST Bernardo Alcantara MD LAB POINT OF CARE TE ST DOCKED DEVICE UNSOLICITED RESULTS Performing Organization Address [facility]/ZIP Co de Phone Number [facility] [address] [place] [address], [place] [phone] * POCT Glucose, blood (09/22/2024 5:07 PM EST) Glucose POCT 100 70 - 100 mg/dL 09/22/2024 5:07 PM EST [facility] Blood Capillary blood specimen / Unknown 09/22/2024 5:07 PM EST 09/22/2024 5:08 PM EST Bernardo Alcantara MD LAB POINT OF CARE TE ST DOCKED DEVICE UNSOLICITED RESULTS Performing Organization Address City/[facility]/ZIP Co de Phone Number [facility] [address] [place] [address], [place] [phone] * POCT Glucose, blood (09/22/2024 12:38 PM EST) Glucose POCT 92 70 - 100 mg/dL 09/22/2024 3:11 PM EST [facility] Blood Capillary blood specimen / Unknown 09/22/2024 12:38 PM EST 09/22/2024 3:12 PM EST Bernardo Alcantara MD LAB POINT OF CARE TE ST DOCKED DEVICE UNSOLICITED RESULTS Performing Organization Address [facility]/ZIP Co de Phone Number [facility] [address] [place] [address], [place] [phone] * POCT Glucose, blood (09/22/2024 8:21 AM EST) [facility] Glucose POCT 85 70 - 100 mg/dL 09/22/2024 8:22 AM EST [facility] Blood Capillary blood specimen / Unknown 09/22/2024 8:21 AM EST 09/22/2024 8:23 AM EST Bernardo Alcantara MD LAB POINT OF CARE TE ST DOCKED DEVICE UNSOLICITED RESULTS Performing Organization Address [facility]/ZIP Co de Phone Number [facility] [address] [place] [address], [place] [phone] * (ABNORMAL) CBC auto differential (09/22/2024 5:59 AM EST) [facility] WBC 13.0(H) 4.8 - 10.8 /[facility] LAB HEMETOLOGY METHOD 09/22/2024 7:21 AM [facility] RBC 3.50(L) 3.80 - 4.80 /[facility] LAB HEMETOLOGY METHOD 09/22/2024 7:21 AM [facility] Hemoglobin 7.8(L) 11.5 - 16.0 g/dL LAB HEMETOLOGY METHOD 09/22/2024 7:21 AM [facility] Hematocrit 25.7(L) 35.0 - 47.0 % LAB HEMETOLOGY METHOD 09/22/2024 7:21 AM [facility] MCV 73.0(L) 79.0 - 98.0 FL LAB HEMETOLOGY METHOD 09/22/2024 7:21 AM [facility] MCH 22.2(L) 27.0 - 32.0 pcg LAB HEMETOLOGY METHOD 09/22/2024 7:21 AM [facility] MCHC 30.4(L) 32.0 - 37.0 g/dL LAB HEMETOLOGY METHOD 09/22/2024 7:21 AM [facility] RDW 21.6(H) 11.0 - 15.0 % LAB HEMETOLOGY METHOD 09/22/2024 7:21 AM [facility] Platelets 595(H) 130 - 400 K/mcL LAB HEMETOLOGY METHOD 09/22/2024 7:21 AM [facility] MPV 9.3 7.0 - 11.0 FL LAB HEMETOLOGY METHOD 09/22/2024 7:21 AM [facility] NRBC 0.0 <1.0 % LAB HEMETOLOGY METHOD 09/22/2024 7:21 AM [facility] NRBC Absolute 0.00 <0.10 K/mcL LAB HEMETOLOGY METHOD 09/22/2024 7:21 AM [facility] Neutrophils Relative 84.3 % LAB HEMETOLOGY METHOD 09/22/2024 7:21 AM [facility] Lymphocytes Relative 7.7 % LAB HEMETOLOGY METHOD 09/22/2024 7:21 AM [facility] Monocytes Relative 6.8 % LAB HEMETOLOGY METHOD 09/22/2024 7:21 AM [facility] Eosinophils Relative 0.0 % LAB HEMETOLOGY METHOD 09/22/2024 7:21 AM [facility] Basophils Relative 0.1 % LAB HEMETOLOGY METHOD 09/22/2024 7:21 AM [facility] Immature Granulocytes Relative 1.1 % LAB HEMETOLOGY METHOD 09/22/2024 7:21 AM EST [facility] Neutrophils Absolute 10.99(H) 1.50 - 7.00 K/[facility] LAB HEMETOLOGY METHOD 09/22/2024 7:21 AM EST [facility] Lymphocytes Absolute 1.01 1.00 - 5.00 K/mcL LAB HEMETOLOGY METHOD 09/22/2024 7:21 AM EST [facility] Monocytes Absolute 0.89 0.20 - 1.00 K/mcL LAB HEMETOLOGY METHOD 09/22/2024 7:21 AM EST [facility] Eosinophils Absolute 0.00 0.00 - 0.50 K/mcL LAB HEMETOLOGY METHOD 09/22/2024 7:21 AM [facility] Basophils Absolute 0.01 0.00 - 0.20 K/mcL LAB HEMETOLOGY METHOD 09/22/2024 7:21 AM EST [facility] Immature Granulocytes Absolute 0.14(H) 0.00 - 0.03 K/mcL LAB HEMETOLOGY METHOD 09/22/2024 7:21 AM [facility] Blood Venous blood specimen / Unknown Venipuncture / Unknown 09/22/2024 5:59 AM EST 09/22/2024 7:03 AM EST Abran JOSEPH LAB BLOOD ORDERAB LES [facility] [address] [place] [address], * (ABNORMAL) CBC - Every 3 Days (09/22/2024 5:59 AM EST) WBC 13.0(H) 4.8 - 10.8 K/mcL LAB HEMETOLOGY METHOD 09/22/2024 7:21 AM EST [facility] RBC 3.50(L) 3.80 - 4.80 M/mcL LAB HEMETOLOGY METHOD 09/22/2024 7:21 AM [facility] Hemoglobin 7.8(L) 11.5 - 16.0 g/dL LAB HEMETOLOGY METHOD 09/22/2024 7:21 AM [facility] Hematocrit 25.7(L) 35.0 - 47.0 % LAB HEMETOLOGY METHOD 09/22/2024 7:21 AM [facility] MCV 73.0(L) 79.0 - 98.0 FL LAB HEMETOLOGY METHOD 09/22/2024 7:21 AM [facility] MCH 22.2(L) 27.0 - 32.0 pcg LAB HEMETOLOGY METHOD 09/22/2024 7:21 AM [facility] MCHC 30.4(L) 32.0 - 37.0 g/dL LAB HEMETOLOGY METHOD 09/22/2024 7:21 AM [facility] RDW 21.6(H) 11.0 - 15.0 % LAB HEMETOLOGY METHOD 09/22/2024 7:21 AM [facility] Platelets 595(H) 130 - 400 K/mcL LAB HEMETOLOGY METHOD 09/22/2024 7:21 AM [facility] MPV 9.3 7.0 - 11.0 FL LAB HEMETOLOGY METHOD 09/22/2024 7:21 AM [facility] NRBC 0.0 <1.0 % LAB HEMETOLOGY METHOD 09/22/2024 7:21 AM [facility] NRBC Absolute 0.00 <0.10 K/mcL LAB HEMETOLOGY METHOD 09/22/2024 7:21 AM [facility] Blood Venous blood specimen / Unknown Venipuncture / Unknown 09/22/2024 5:59 AM EST 09/22/2024 7:03 AM EST Abran JOSEPH LAB BLOOD ORDERAB LES [facility] [address] [place] [address], * (ABNORMAL) Basic metabolic panel (09/22/2024 5:59 AM EST) Sodium 142 133 - 145 mmol/L LAB CHEMISTRY METHOD 09/22/2024 8:50 AM EST [facility] Potassium 3.5 3.5 - 5.5 mmol/L LAB CHEMISTRY METHOD 09/22/2024 8:50 AM [facility] Chloride 106 96 - 110 mmol/L LAB CHEMISTRY METHOD 09/22/2024 8:50 AM [facility] CO2 22 21 - 32 mmol/L LAB CHEMISTRY METHOD 09/22/2024 8:50 AM [facility] Anion Gap 14(H) 3 - 11 LAB CHEMISTRY METHOD 09/22/2024 8:50 AM [facility] Glucose 76 70 - 100 mg/dL LAB CHEMISTRY METHOD 09/22/2024 8:50 AM [facility] Comment:Lipemia present BUN 9 5 - 25 mg/dL LAB CHEMISTRY METHOD 09/22/2024 8:50 AM [facility] Creatinine 0.22(L) 0.50 - 1.10 mg/dL LAB CHEMISTRY METHOD 09/22/2024 8:50 AM [facility] eGFR 119 >=60 mL/min/1. 73m2 LAB CHEMISTRY METHOD 09/22/2024 8:50 AM [facility] Comment:Calculation based on the??Chronic Kidney Disease Epidemiology Collaboration (CKD-EPI) equation refit??without adjustment for race. BUN/Creatinine Ratio 40.9 LAB CHEMISTRY METHOD 09/22/2024 8:50 AM [facility] Calcium 8.4(L) 8.5 - 10.5 mg/dL LAB CHEMISTRY METHOD 09/22/2024 8:50 AM EST [facility] Blood Venous blood specimen / Unknown Venipuncture / Unknown 09/22/2024 5:59 AM EST 09/22/2024 7:07 AM EST Abran JOSEPH LAB BLOOD ORDERAB LES [facility] [address] [place] [address], [place] [phone] * POCT Glucose, blood (09/21/2024 8:09 PM EST) Glucose POCT 92 70 - 100 mg/dL 09/21/2024 8:10 PM EST [facility] Blood Capillary blood specimen / Unknown 09/21/2024 8:09 PM EST 09/21/2024 8:11 PM EST Bernardo Alcantara MD LAB POINT OF CARE TE ST DOCKED DEVICE UNSOLICITED RESULTS Performing Organization Address City/[facility]/ZIP Co de Phone Number [facility] [address] [place] [address], [place] [phone] * POCT Glucose, blood (09/21/2024 6:45 PM EST) Glucose POCT 78 70 - 100 mg/dL 09/21/2024 6:45 PM EST [facility] Blood Capillary blood specimen / Unknown 09/21/2024 6:45 PM EST 09/21/2024 6:47 PM EST Bernardo Alcantara MD LAB POINT OF CARE TE ST DOCKED DEVICE UNSOLICITED RESULTS [facility] [address] [place] [address], [place] [phone] * POCT Glucose, blood (09/21/2024 12:20 PM EST) Glucose POCT 88 70 - 100 mg/dL 09/21/2024 12:22 PM EST [facility] Blood Capillary blood specimen / Unknown 09/21/2024 12:20 PM EST 09/21/2024 12:23 PM EST Bernardo Alcantara MD LAB POINT OF CARE TE ST DOCKED DEVICE UNSOLICITED RESULTS [facility] [address] [place] [address], * ECG 12 lead (09/21/2024 10:37 AM EST) Ventricular Rate ECG 88 BPM GEMUSE Atrial Rate 88 BPM GEMUSE P-R Interval 146 ms GEMUSE QRS Duration 92 ms GEMUSE Q-T Interval 380 ms GEMUSE QTc 459 ms GEMUSE P Wave Marion 40 degrees GEMUSE R Marion 1 degrees GEMUSE T Marion 37 degrees GEMUSE ECG Interpretation Sinus rhythm Premature atrial complexes and ??with occasional Premature ventricular complexes Possible Left atrial enlargement Left ventricular hypertrophy Abnormal ECG When compared with ECG of 18-SEP-2024 02:31, Premature ventricular complexes are now Present Confirmed by HARRIS AVILES ([id number]) on 09/21/2024 5:30:23 PM GEMUSE 09/21/2024 10:3 7 AM EST 09/21/2024 5:30 PM EST Abran JOSEPH ECG ORDERABLES GEMUSE * POCT Glucose, blood (09/21/2024 9:17 AM EST) Glucose POCT 73 70 - 100 mg/dL 09/21/2024 9:17 AM EST [facility] Blood Capillary blood specimen / Unknown 09/21/2024 9:17 AM EST 09/21/2024 9:19 AM EST Bernardo Alcantara MD LAB POINT OF CARE TE ST DOCKED DEVICE UNSOLICITED RESULTS [facility] [address] [place] [address], * (ABNORMAL) CBC auto differential (09/21/2024 6:22 AM EST) WBC 17.6(H) 4.8 - 10.8 K/mcL LAB HEMETOLOGY METHOD 09/21/2024 8:37 AM [facility] RBC 3.40(L) 3.80 - 4.80 M/mcL LAB HEMETOLOGY METHOD 09/21/2024 8:37 AM [facility] Hemoglobin 7.6(L) 11.5 - 16.0 g/dL LAB HEMETOLOGY METHOD 09/21/2024 8:37 AM [facility] Hematocrit 25.0(L) 35.0 - 47.0 % LAB HEMETOLOGY METHOD 09/21/2024 8:37 AM [facility] MCV 73.3(L) 79.0 - 98.0 FL LAB HEMETOLOGY METHOD 09/21/2024 8:37 AM [facility] MCH 22.3(L) 27.0 - 32.0 pcg LAB HEMETOLOGY METHOD 09/21/2024 8:37 AM [facility] MCHC 30.4(L) 32.0 - 37.0 g/dL LAB HEMETOLOGY METHOD 09/21/2024 8:37 AM [facility] RDW 21.3(H) 11.0 - 15.0 % LAB HEMETOLOGY METHOD 09/21/2024 8:37 AM [facility] Platelets 584(H) 130 - 400 K/mcL LAB HEMETOLOGY METHOD 09/21/2024 8:37 AM [facility] MPV 9.4 7.0 - 11.0 FL LAB HEMETOLOGY METHOD 09/21/2024 8:37 AM [facility] NRBC 0.0 <1.0 % LAB HEMETOLOGY METHOD 09/21/2024 8:37 AM [facility] NRBC Absolute 0.00 <0.10 K/mcL LAB HEMETOLOGY METHOD 09/21/2024 8:37 AM [facility] Neutrophils Relative 87.4 % LAB HEMETOLOGY METHOD 09/21/2024 8:37 AM [facility] Lymphocytes Relative 7.3 % LAB HEMETOLOGY METHOD 09/21/2024 8:37 AM [facility] Monocytes Relative 4.6 % LAB HEMETOLOGY METHOD 09/21/2024 8:37 AM [facility] Eosinophils Relative 0.0 % LAB HEMETOLOGY METHOD 09/21/2024 8:37 AM [facility] Basophils Relative 0.1 % LAB HEMETOLOGY METHOD 09/21/2024 8:37 AM [facility] Immature Granulocytes Relative 0.6 % LAB HEMETOLOGY METHOD 09/21/2024 8:37 AM [facility] Neutrophils Absolute 15.41(H) 1.50 - 7.00 K/mcL LAB HEMETOLOGY METHOD 09/21/2024 8:37 AM [facility] Lymphocytes Absolute 1.29 1.00 - 5.00 K/mcL LAB HEMETOLOGY METHOD 09/21/2024 8:37 AM [facility] Monocytes Absolute 0.81 0.20 - 1.00 K/mcL LAB HEMETOLOGY METHOD 09/21/2024 8:37 AM [facility] Eosinophils Absolute 0.00 0.00 - 0.50 K/mcL LAB HEMETOLOGY METHOD 09/21/2024 8:37 AM [facility] Basophils Absolute 0.02 0.00 - 0.20 K/[facility] LAB HEMETOLOGY METHOD 09/21/2024 8:37 AM EST [facility] Immature Granulocytes Absolute 0.11(H) 0.00 - 0.03 K/[facility] LAB HEMETOLOGY METHOD 09/21/2024 8:37 AM EST [facility] Blood Venous blood specimen / Unknown Venipuncture / Unknown 09/21/2024 6:22 AM EST 09/21/2024 7:52 AM EST Abran JOSEPH LAB BLOOD ORDERAB LES [facility] [address] [place] [address], * (ABNORMAL) Basic metabolic panel (09/21/2024 6:22 AM EST) Sodium 140 133 - 145 mmol/L LAB CHEMISTRY METHOD 09/21/2024 8:24 AM [facility] Potassium 3.8 3.5 - 5.5 mmol/L LAB CHEMISTRY METHOD 09/21/2024 8:24 AM [facility] Chloride 104 96 - 110 mmol/L LAB CHEMISTRY METHOD 09/21/2024 8:24 AM [facility] CO2 25 21 - 32 mmol/L LAB CHEMISTRY METHOD 09/21/2024 8:24 AM [facility] Anion Gap 11 3 - 11 LAB CHEMISTRY METHOD 09/21/2024 8:24 AM [facility] Glucose 69(L) 70 - 100 mg/dL LAB CHEMISTRY METHOD 09/21/2024 8:24 AM [facility] BUN 16 5 - 25 mg/dL LAB CHEMISTRY METHOD 09/21/2024 8:24 AM [facility] Creatinine 0.20(L) 0.50 - 1.10 mg/dL LAB CHEMISTRY METHOD 09/21/2024 8:24 AM EST [facility] eGFR 121 >=60 mL/min/1. 73m2 LAB CHEMISTRY METHOD 09/21/2024 8:24 AM EST [facility] Comment:Calculation based on the??Chronic Kidney Disease Epidemiology Collaboration (CKD-EPI) equation refit??without adjustment for race. BUN/Creatinine Ratio 80.0 LAB CHEMISTRY METHOD 09/21/2024 8:24 AM EST [facility] Calcium 8.0(L) 8.5 - 10.5 mg/dL LAB CHEMISTRY METHOD 09/21/2024 8:24 AM EST [facility] Blood Venous blood specimen / Unknown Venipuncture / Unknown 09/21/2024 6:22 AM EST 09/21/2024 7:53 AM EST Abran JOSEPH LAB BLOOD ORDERAB LES [facility] [address] [place] [address], * MR Thoracic Spine wo Contrast (09/20/2024 [...] Signed Date: 09/21/2024 08:47 ET Workstation ID: [id number] Transcribed By: Self Edit Transcribed Date: 09/21/2024 [...] Signed Date: 09/21/2024 08:47 ET Workstation ID: [id number] Transcribed By: Self Edit Transcribed Date: 09/21/2024 08:27 ET Abran JOSEPH IMG MRI PROCEDURE S * (ABNORMAL) RBC morphology review (09/20/2024 8:38 AM EST) Rbc Morphology See comment( A) Consistent with indices, Normal for [place] LAB HEMETOLOGY METHOD 09/20/2024 10:07 AM EST [facility] Comment:RBC: Morphology agre es with CBC Platelet Morphology - WAM See Note(A) Normal LAB HEMETOLOGY METHOD 09/20/2024 10:07 AM EST [facility] Comment:PLT: Normal Blood Venous blood specimen / Unknown Venipuncture / Unknown 09/20/2024 8:38 AM EST 09/20/2024 9:05 AM EST Abran JOSEPH LAB BLOOD ORDERAB LES [facility] [address] [place] [address], * (ABNORMAL) CBC auto differential (09/20/2024 8:38 AM EST) WBC 28.2(H) 4.8 - 10.8 K/mcL LAB HEMETOLOGY METHOD 09/20/2024 10:07 AM [facility] RBC 3.90 3.80 - 4.80 M/mcL LAB HEMETOLOGY METHOD 09/20/2024 10:07 AM [facility] Hemoglobin 8.8(L) 11.5 - 16.0 g/dL LAB HEMETOLOGY METHOD 09/20/2024 10:07 AM [facility] Hematocrit 29.5(L) 35.0 - 47.0 % LAB HEMETOLOGY METHOD 09/20/2024 10:07 AM [facility] MCV 75.4(L) 79.0 - 98.0 FL LAB HEMETOLOGY METHOD 09/20/2024 10:07 AM [facility] MCH 22.5(L) 27.0 - 32.0 pcg LAB HEMETOLOGY METHOD 09/20/2024 10:07 AM [facility] MCHC 29.8(L) 32.0 - 37.0 g/dL LAB HEMETOLOGY METHOD 09/20/2024 10:07 AM [facility] RDW 21.6(H) 11.0 - 15.0 % LAB HEMETOLOGY METHOD 09/20/2024 10:07 AM [facility] Platelets 611(H) 130 - 400 K/mcL LAB HEMETOLOGY METHOD 09/20/2024 10:07 AM [facility] MPV 9.1 7.0 - 11.0 FL LAB HEMETOLOGY METHOD 09/20/2024 10:07 AM [facility] NRBC 0.0 <1.0 % LAB HEMETOLOGY METHOD 09/20/2024 10:07 AM [facility] NRBC Absolute 0.00 <0.10 K/mcL LAB HEMETOLOGY METHOD 09/20/2024 10:07 AM [facility] Neutrophils Relative 90.2 % LAB HEMETOLOGY METHOD 09/20/2024 10:07 AM [facility] Comment:This is an appended report. These results have been appended to a previously preliminary verified report. Lymphocytes Relative 5.3 % LAB HEMETOLOGY METHOD 09/20/2024 10:07 AM [facility] Comment:This is an appended report. These results have been appended to a previously preliminary verified report. Monocytes Relative 3.5 % LAB HEMETOLOGY METHOD 09/20/2024 10:07 AM [facility] Comment:This is an appended report. These results have been appended to a previously preliminary verified report. Eosinophils Relative 0.0 % LAB HEMETOLOGY METHOD 09/20/2024 10:07 AM [facility] Comment:This is an appended report. These results have been appended to a previously preliminary verified report. Basophils Relative 0.1 % LAB HEMETOLOGY METHOD 09/20/2024 10:07 AM [facility] Comment:This is an appended report. These results have been appended to a previously preliminary verified report. Immature Granulocytes Relative 0.9 % LAB HEMETOLOGY METHOD 09/20/2024 10:07 AM [facility] Comment:This is an appended report. These results have been appended to a previously preliminary verified report. Neutrophils Absolute 25.37(H) 1.50 - 7.00 K/mcL LAB HEMETOLOGY METHOD 09/20/2024 10:07 AM [facility] Comment:This is an appended report. These results have been appended to a previously preliminary verified report. Lymphocytes Absolute 1.50 1.00 - 5.00 K/mcL LAB HEMETOLOGY METHOD 09/20/2024 10:07 AM [facility] Comment:This is an appended report. These results have been appended to a previously preliminary verified report. Monocytes Absolute 1.00 0.20 - 1.00 K/mcL LAB HEMETOLOGY METHOD 09/20/2024 10:07 AM [facility] Comment:This is an appended report. These results have been appended to a previously preliminary verified report. Eosinophils Absolute 0.00 0.00 - 0.50 K/mcL LAB HEMETOLOGY METHOD 09/20/2024 10:07 AM EST [facility] Comment:This is an appended report. These results have been appended to a previously preliminary verified report. Basophils Absolute 0.04 0.00 - 0.20 K/mcL [facility]/20/[facility] 10:07 AM EST [facility] Comment:This is an appended report. These results have been appended to a previously preliminary verified report. Immature Granulocytes Absolute 0.26(H) 0.00 - 0.03 K/mcL LAB [facility] 09/20/2024 10:07 AM EST [facility] Comment:This is an appended report. These results have been appended to a previously preliminary verified report. Blood Venous blood specimen / Unknown Venipuncture / Unknown 09/20/2024 8:38 AM EST 09/20/2024 9:05 AM EST Abran JOSEPH LAB BLOOD ORDERAB LES Performing Organization Address City/[facility]/ZIP Co de Phone Number [facility] [address] [place] [address], [place] [phone] * (ABNORMAL) Sedimentation rate (09/20/2024 8:38 AM EST) Sed Rate 121(H) 0 - 30 mm/hr LAB HEMETOLOGY METHOD 09/20/2024 9:31 AM EST [facility] Blood Venous blood specimen / Unknown Venipuncture / Unknown 09/20/2024 8:38 AM EST 09/20/2024 9:05 AM EST Emiliano JOSEPH LAB BLOOD ORDERABLE S Performing Organization Address City/[facility]/ZIP Co de Phone Number [facility] [address] [place] [address], [place] [phone] * POCT Glucose, blood (09/20/2024 8:01 AM EST) Pathologist [facility] Glucose POCT 99 70 - 100 mg/dL 09/20/2024 8:05 AM EST [facility] Blood Capillary blood specimen / Unknown 09/20/2024 8:01 AM EST 09/20/2024 8:06 AM EST Bernardo Alcantara MD LAB POINT OF CARE TE ST DOCKED DEVICE UNSOLICITED RESULTS Performing Organization Address [facility]/ZIP Co de Phone Number [facility] [address] [place] [address], * (ABNORMAL) C-reactive protein (09/20/2024 5:43 AM EST) [facility] C-Reactive Protein 15.60(H) <=0.50 mg/dL LAB CHEMISTRY METHOD 09/20/2024 7:18 AM EST [facility] Blood Venous blood specimen / Unknown Venipuncture / Unknown 09/20/2024 5:43 AM EST 09/20/2024 6:38 AM EST Emiliano JOSEPH LAB BLOOD ORDERABLE S Performing Organization Address [facility]/ZIP Co de Phone Number [facility] [address] [place] [address], * (ABNORMAL) Basic metabolic panel (09/20/2024 5:43 AM EST) [facility] Sodium 137 133 - 145 mmol/L LAB CHEMISTRY METHOD 09/20/2024 7:21 AM EST [facility] Potassium 4.3 3.5 - 5.5 mmol/L LAB CHEMISTRY METHOD 09/20/2024 7:21 AM EST [facility] Chloride 105 96 - 110 mmol/L LAB CHEMISTRY METHOD 09/20/2024 7:21 AM EST [facility] CO2 22 21 - 32 mmol/L LAB CHEMISTRY METHOD 09/20/2024 7:21 AM [facility] Anion Gap 10 3 - 11 LAB CHEMISTRY METHOD 09/20/2024 7:21 AM [facility] Glucose 88 70 - 100 mg/dL LAB CHEMISTRY METHOD 09/20/2024 7:21 AM [facility] BUN 21 5 - 25 mg/dL LAB CHEMISTRY METHOD 09/20/2024 7:21 AM [facility] Creatinine 0.25(L) 0.50 - 1.10 mg/dL LAB CHEMISTRY METHOD 09/20/2024 7:21 AM [facility] eGFR 115 >=60 mL/min/1. 73m2 LAB CHEMISTRY METHOD 09/20/2024 7:21 AM [facility] Comment:Calculation based on the??Chronic Kidney Disease Epidemiology Collaboration (CKD-EPI) equation refit??without adjustment for race. BUN/Creatinine Ratio 84.0 LAB CHEMISTRY METHOD 09/20/2024 7:21 AM [facility] Calcium 8.1(L) 8.5 - 10.5 mg/dL LAB CHEMISTRY METHOD 09/20/2024 7:21 AM [facility] Blood Venous blood specimen / Unknown Venipuncture / Unknown 09/20/2024 5:43 AM EST 09/20/2024 6:38 AM EST Emiliano JOSEPH LAB BLOOD ORDERABLE S [facility] [address] [place] [address], * (ABNORMAL) POCT Glucose, blood (09/19/2024 11:48 PM EST) [facility] Signature Glucose POCT 110(H) 70 - 100 mg/dL 09/19/2024 11:49 PM [facility] Blood Capillary blood specimen / Unknown 09/19/2024 11:48 PM EST 09/19/2024 11:50 PM EST Bernardo Alcantara MD LAB POINT OF CARE TE ST DOCKED DEVICE UNSOLICITED RESULTS Performing Organization Address [facility]/ZIP Co de Phone Number [facility] [address] [place] [address], [place] [phone] * POCT Glucose, blood (09/19/2024 4:46 PM EST) Glucose POCT 98 70 - 100 mg/dL 09/19/2024 4:47 PM EST [facility] Blood Capillary blood specimen / Unknown 09/19/2024 4:46 PM EST 09/19/2024 4:49 PM EST Bernardo Alcantara MD LAB POINT OF CARE TE ST DOCKED DEVICE UNSOLICITED RESULTS Performing Organization Address [facility] Co de Phone Number [facility] [address] [place] [address], [place] [phone] * Culture blood (09/19/2024 4:34 PM EST) Culture, Blood No growth at 5 days LAB MICROBIOLOGY METHOD 09/24/2024 5:01 PM EST [facility] Blood Specimen from bone marrow obtained by aspiration / Unknown Venipuncture / Unknown 09/19/2024 4:34 PM EST 09/19/2024 4:41 PM EST Abran JOSEPH LAB MICROBIOLOGY - GENERAL ORDERABLES Performing Organization Address [facility]/ZIP Co de Phone Number [facility] [address] [place] [address], [place] [phone] * Culture blood (09/19/2024 4:29 PM EST) Culture, Blood No growth at 5 days LAB MICROBIOLOGY METHOD 09/24/2024 5:01 PM EST [facility] Blood Venous blood specimen / Unknown Venipuncture / Unknown 09/19/2024 4:29 PM EST 09/19/2024 4:40 PM EST Abran JOSEPH LAB MICROBIOLOGY - GENERAL ORDERABLES [facility] [address] [place] [address], [place] [phone] * (ABNORMAL) POCT Glucose, blood (09/19/2024 4:13 PM EST) Glucose POCT 107(H) 70 - 100 mg/dL 09/19/2024 4:14 PM EST [facility] Blood Capillary blood specimen / Unknown 09/19/2024 4:13 PM EST 09/19/2024 4:15 PM EST Bernardo Alcantara MD LAB POINT OF CARE TE ST DOCKED DEVICE UNSOLICITED RESULTS [facility] [address] [place] [address], [place] [phone] * POCT Glucose, blood (09/19/2024 12:51 PM EST) Glucose POCT 76 70 - 100 mg/dL 09/19/2024 12:52 PM EST [facility] POCT Comment RN Notified 09/19/2024 12:52 PM EST [facility] Blood Capillary blood specimen / Unknown 09/19/2024 12:51 PM EST 09/19/2024 12:53 PM EST Bernardo Alcantara MD LAB POINT OF CARE TE ST DOCKED DEVICE UNSOLICITED RESULTS [facility] [address] [place] [address], [place] [phone] * (ABNORMAL) Culture body fluid with gram stain (09/19/2024 10:31 AM EST) Fluid Culture Methicillin-Sensiti ve Staphylococcus aureus(A) SANDRA 09/23/2024 10:05 AM EST [facility] Comment: The organism value for this result has been updated. These results have been appended to the previously preliminary verified report. Edited result: Previously reported as Staphylococcus aureus on 09/20/2024 at 1312 EST. Gram Stain Result No epithelial cells seen(A) 09/23/2024 10:05 AM EST [facility] Gram Stain Result Many Polymorphonuclear leukocytes(A) 09/23/2024 10:05 AM [facility] Gram Stain Result Few Gram positive cocci in clusters(A) 09/23/2024 10:05 AM [facility] Synovial Fluid Structure of [...] Mcdowell MD LAB MICROBIOLOGY - GENERAL ORDERABLES [facility] [address] [place] [address], * (ABNORMAL) CBC auto differential (09/19/2024 8:08 AM EST) WBC 26.0(H) 4.8 - 10.8 K/mcL LAB HEMETOLOGY METHOD 09/19/2024 9:05 AM [facility] RBC 4.10 3.80 - 4.80 M/mcL LAB HEMETOLOGY METHOD 09/19/2024 9:05 AM [facility] Hemoglobin 9.1(L) 11.5 - 16.0 g/dL LAB HEMETOLOGY METHOD 09/19/2024 9:05 AM [facility] Hematocrit 29.8(L) 35.0 - 47.0 % LAB HEMETOLOGY METHOD 09/19/2024 9:05 AM [facility] MCV 72.9(L) 79.0 - 98.0 FL LAB HEMETOLOGY METHOD 09/19/2024 9:05 AM [facility] MCH 22.2(L) 27.0 - 32.0 pcg LAB HEMETOLOGY METHOD 09/19/2024 9:05 AM [facility] MCHC 30.5(L) 32.0 - 37.0 g/dL LAB HEMETOLOGY METHOD 09/19/2024 9:05 AM [facility] RDW 21.2(H) 11.0 - 15.0 % LAB HEMETOLOGY METHOD 09/19/2024 9:05 AM [facility] Platelets 552(H) 130 - 400 K/mcL LAB HEMETOLOGY METHOD 09/19/2024 9:05 AM [facility] MPV 9.1 7.0 - 11.0 FL LAB HEMETOLOGY METHOD 09/19/2024 9:05 AM [facility] NRBC 0.0 <1.0 % LAB HEMETOLOGY METHOD 09/19/2024 9:05 AM [facility] NRBC Absolute 0.00 <0.10 K/mcL LAB HEMETOLOGY METHOD 09/19/2024 9:05 AM [facility] Neutrophils Relative 91.0 % LAB HEMETOLOGY METHOD 09/19/2024 9:05 AM [facility] Comment:This is an appended report. These results have been appended to a previously preliminary verified report. Lymphocytes Relative 3.6 % LAB HEMETOLOGY METHOD 09/19/2024 9:05 AM [facility] Comment:This is an appended report. These results have been appended to a previously preliminary verified report. Monocytes Relative 4.4 % LAB HEMETOLOGY METHOD 09/19/2024 9:05 AM [facility] Comment:This is an appended report. These results have been appended to a previously preliminary verified report. Eosinophils Relative 0.1 % LAB HEMETOLOGY METHOD 09/19/2024 9:05 AM [facility] Comment:This is an appended report. These results have been appended to a previously preliminary verified report. Basophils Relative 0.2 % LAB HEMETOLOGY METHOD 09/19/2024 9:05 AM [facility] Comment:This is an appended report. These results have been appended to a previously preliminary verified report. Immature Granulocytes Relative 0.7 % LAB HEMETOLOGY METHOD 09/19/2024 9:05 AM [facility] Comment:This is an appended report. These results have been appended to a previously preliminary verified report. Neutrophils Absolute 23.65(H) 1.50 - 7.00 K/mcL LAB HEMETOLOGY METHOD 09/19/2024 9:05 AM [facility] Comment:This is an appended report. These results have been appended to a previously preliminary verified report. Lymphocytes Absolute 0.94(L) 1.00 - 5.00 K/[facility] LAB HEMETOLOGY METHOD 09/19/2024 9:05 AM EST [facility] Comment:This is an appended report. These results have been appended to a previously preliminary verified report. Monocytes Absolute 1.13(H) 0.20 - 1.00 K/[facility] LAB HEMETOLOGY METHOD 09/19/2024 9:05 AM EST [facility] Comment:This is an appended report. These results have been appended to a previously preliminary verified report. Eosinophils Absolute 0.02 0.00 - 0.50 K/mcL LAB HEMETOLOGY METHOD 09/19/2024 9:05 AM EST [facility] Comment:This is an appended report. These results have been appended to a previously preliminary verified report. Basophils Absolute 0.04 0.00 - 0.20 K/mcL LAB HEMETOLOGY METHOD 09/19/2024 9:05 AM EST [facility] Comment:This is an appended report. These results have been appended to a previously preliminary verified report. Immature Granulocytes Absolute 0.19(H) 0.00 - 0.03 K/[facility] LAB HEMETOLOGY METHOD 09/19/2024 9:05 AM EST [facility] Comment:This is an appended report. These results have been appended to a previously preliminary verified report. Blood Venous blood specimen / Unknown Venipuncture / Unknown 09/19/2024 8:08 AM EST 09/19/2024 8:32 AM EST Abran Solis PA LAB BLOOD ORDERAB LES [facility] [address] [place] [address], * POCT Glucose, blood (09/19/2024 7:48 AM EST) [facility] Glucose POCT 81 70 - 100 mg/dL 09/19/2024 7:49 AM EST [facility] POCT Comment RN Notified 09/19/2024 7:49 AM [facility] Blood Capillary blood specimen / Unknown 09/19/2024 7:48 AM EST 09/19/2024 7:50 AM EST Bernardo Alcantara MD LAB POINT OF CARE TE ST DOCKED DEVICE UNSOLICITED RESULTS [facility] [address] [place] [address], [place] [phone] * (ABNORMAL) Magnesium (09/19/2024 5:46 AM EST) [facility] Magnesium 1.8(L) 1.9 - 2.6 mg/dL LAB CHEMISTRY METHOD 09/19/2024 7:36 AM EST [facility] Blood Venous blood specimen / Unknown Venipuncture / Unknown 09/19/2024 5:46 AM EST 09/19/2024 6:51 AM EST Abran JOSEPH LAB BLOOD ORDERAB LES [facility] [address] [place] [address], [place] [phone] * (ABNORMAL) Comprehensive metabolic panel (09/19/2024 5:46 AM EST) [facility] Sodium 137 133 - 145 mmol/L LAB CHEMISTRY METHOD 09/19/2024 7:38 AM EST [facility] Potassium 3.9 3.5 - 5.5 mmol/L LAB CHEMISTRY METHOD 09/19/2024 7:38 AM [facility] Chloride 102 96 - 110 mmol/L LAB CHEMISTRY METHOD 09/19/2024 7:38 AM EST [facility] CO2 23 21 - 32 mmol/L LAB CHEMISTRY METHOD 09/19/2024 7:38 AM [facility] Anion Gap 12(H) 3 - 11 LAB CHEMISTRY METHOD 09/19/2024 7:38 AM [facility] Glucose 64(L) 70 - 100 mg/dL LAB CHEMISTRY METHOD 09/19/2024 7:38 AM [facility] BUN 12 5 - 25 mg/dL LAB CHEMISTRY METHOD 09/19/2024 7:38 AM [facility] Creatinine <0.15(L) 0.50 - 1.10 mg/dL LAB CHEMISTRY METHOD 09/19/2024 7:38 AM [facility] eGFR LAB CHEMISTRY METHOD 09/19/2024 7:38 AM [facility] Comment:Creatinine above or below reportable range; unable to calculate eGFR. BUN/Creatinine Ratio LAB CHEMISTRY METHOD 09/19/2024 7:38 AM [facility] Comment:Creatinine and/or Ur ea Nitrogen (BUN) above or below reportable range; unable to calculate BUN/Creatinine Ratio. Calcium 7.9(L) 8.5 - 10.5 mg/dL LAB CHEMISTRY METHOD 09/19/2024 7:38 AM [facility] AST (SGOT) 27 10 - 42 unit/L LAB CHEMISTRY METHOD 09/19/2024 7:38 AM [facility] ALT (SGPT) <6(L) 10 - 60 unit/L LAB CHEMISTRY METHOD 09/19/2024 7:38 AM [facility] Alkaline Phosphatase 100 42 - 121 unit/L LAB CHEMISTRY METHOD 09/19/2024 7:38 AM [facility] Total Protein 5.5(L) 6.0 - 8.0 g/dL LAB CHEMISTRY METHOD 09/19/2024 7:38 AM [facility] Albumin 1.5(L) 3.2 - 5.0 g/dL LAB CHEMISTRY METHOD 09/19/2024 7:38 AM EST [facility] Total Bilirubin 0.3 0.0 - 1.4 mg/dL LAB CHEMISTRY METHOD 09/19/2024 7:38 AM EST [facility] Blood Venous blood specimen / Unknown Venipuncture / Unknown 09/19/2024 5:46 AM EST 09/19/2024 6:51 AM EST Abran JOSEPH LAB BLOOD ORDERAB LES [facility] [address] [place] [address], [place] [phone] * Culture blood (09/18/2024 5:59 PM EST) Pathologist [facility] Culture, Blood No growth at 5 days LAB MICROBIOLOGY METHOD 09/23/2024 7:01 PM EST [facility] Blood Venous blood specimen / Unknown Venipuncture / Unknown 09/18/2024 5:59 PM EST 09/18/2024 5:59 PM EST Stacia Lewis MD LAB MICROBIOLOGY - G ENERAL ORDERABLES Performing Organization Address [facility]/ZIP Co de Phone Number [facility] [address] [place] [address], [place] [phone] * (ABNORMAL) TRANSTHORACIC ECHOCARDIOGRAM (TTE) COMPLETE W/ [...] 44 mL CV PACS Left Atrium Minor Marion 5.1 cm CV PACS Left Atrium Major Marion 4.2 cm CV PACS LA Area Sys [...] Gradient 89 mmHg CV PACS MV Deceleration Mccormick 4.1 m/s2 CV PACS E Wave Deceleration [...] Signed Date: 09/19/2024 14:55 ET Workstation ID: [id number] Transcribed By: Self Edit Transcribed Date: 09/18/2024 13:09 ET Resident/PA/COMPENSATION EXPERT: Rosaura Quintanilla Procedure Note Summer Sepulveda MD [...] Signed Date: 09/19/2024 14:55 ET Workstation ID: [id number] Transcribed By: Self Edit Transcribed Date: 09/18/2024 13:09 ET Resident/PA/COMPENSATION EXPERT: Rosaura Quintanilla Rosaura JOSEPH IMG US PROCEDURES * (ABNORMAL) Culture body fluid with gram stain (09/18/2024 11:40 AM EST) Fluid Culture Methicillin-Sensiti ve Staphylococcus aureus(A) SANDRA 09/21/2024 11:05 AM EST [facility] Comment: The organism value for this result has been updated. These results have been appended to the previously preliminary verified report. Edited result: Previously reported as Staphylococcus aureus on 09/19/2024 at 1308 EST. Gram Stain Result Many Polymorphonuclear leukocytes(A) 09/21/2024 11:05 AM EST [facility] Gram Stain Result Few Gram positive cocci in clusters(A) 09/21/2024 11:05 AM EST [facility] Gram Stain Result No epithelial cells seen(A) 09/21/2024 11:05 AM EST [facility] Synovial Fluid Structure of right [...] Trimethoprim/Sulfamethoxazo le SANDRA <=10 ug/ml: Susceptible Rosaura JOSPEH LAB MICROBIOLOGY - G ENERAL ORDERABLES [facility] ([facility]) [facility] [address] [place] [address], * CT Chest/Abdomen/Pelvis w Contrast (09/18/2024 11:35 [...] Signed Date: 09/18/2024 11:58 ET Workstation ID: [id number] Transcribed By: Self Edit Transcribed Date: 09/18/2024 [...] Signed Date: 09/18/2024 11:58 ET Workstation ID: [id number] Transcribed By: Self Edit Transcribed Date: 09/18/2024 11:52 ET Abran JOSEPH IMG CT PROCEDURES * (ABNORMAL) Culture blood (09/18/2024 9:31 AM EST) Culture, Blood Methicillin-Sens itive Staphylococcus aureus(AA) LAB MICROBIOLOGY METHOD 09/20/2024 9:31 AM EST [facility] Comment: Negative for PBP2a - indicates susceptible to Oxacillin FOR SUSCEPTIBILITIES, REFER TO PREVIOUS CULTURE FROM [id number]. The organism value for this result has been updated. These results have been appended to the previously preliminary verified report. Gram Stain Result Aerobic bottle Gram positive cocci in clusters(AA) 09/20/2024 9:31 AM EST [facility] Comment:This is an appended report. These results have been appended to a previously preliminary verified report. Blood Venous blood specimen / Unknown Venipuncture / Unknown 09/18/2024 9:31 AM EST 09/18/2024 9:36 AM EST Abran JOSEPH LAB MICROBIOLOGY - GENERAL ORDERABLES [facility] [address] [place] [address], * (ABNORMAL) Complete blood count (09/18/2024 8:13 AM EST) WBC 23.3(H) 4.8 - 10.8 K/mcL LAB HEMETOLOGY METHOD 09/18/2024 8:48 AM [facility] RBC 4.20 3.80 - 4.80 M/mcL LAB HEMETOLOGY METHOD 09/18/2024 8:48 AM [facility] Hemoglobin 9.4(L) 11.5 - 16.0 g/dL LAB HEMETOLOGY METHOD 09/18/2024 8:48 AM [facility] Hematocrit 30.0(L) 35.0 - 47.0 % LAB HEMETOLOGY METHOD 09/18/2024 8:48 AM [facility] MCV 71.8(L) 79.0 - 98.0 FL LAB HEMETOLOGY METHOD 09/18/2024 8:48 AM [facility] MCH 22.5(L) 27.0 - 32.0 pcg LAB HEMETOLOGY METHOD 09/18/2024 8:48 AM [facility] MCHC 31.3(L) 32.0 - 37.0 g/dL LAB HEMETOLOGY METHOD 09/18/2024 8:48 AM [facility] RDW 21.2(H) 11.0 - 15.0 % LAB HEMETOLOGY METHOD 09/18/2024 8:48 AM [facility] Platelets 403(H) 130 - 400 K/mcL LAB HEMETOLOGY METHOD 09/18/2024 8:48 AM [facility] MPV 9.6 7.0 - 11.0 FL LAB HEMETOLOGY METHOD 09/18/2024 8:48 AM [facility] NRBC 0.0 <1.0 % LAB HEMETOLOGY METHOD 09/18/2024 8:48 AM [facility] NRBC Absolute 0.00 <0.10 K/mcL LAB HEMETOLOGY METHOD 09/18/2024 8:48 AM [facility] Blood Venous blood specimen / Unknown Venipuncture / Unknown 09/18/2024 8:13 AM EST 09/18/2024 8:40 AM EST Dennis Hagan MD LAB BLOOD ORDERABLES [facility] [address] [place] [address], [place] [phone] * (ABNORMAL) Basic metabolic panel (09/18/2024 8:13 AM EST) Sodium 133 133 - 145 mmol/L LAB CHEMISTRY METHOD 09/18/2024 9:08 AM [facility] Potassium 3.8 3.5 - 5.5 mmol/L LAB CHEMISTRY METHOD 09/18/2024 9:08 AM [facility] Chloride 101 96 - 110 mmol/L LAB CHEMISTRY METHOD 09/18/2024 9:08 AM [facility] CO2 22 21 - 32 mmol/L LAB CHEMISTRY METHOD 09/18/2024 9:08 AM [facility] Anion Gap 10 3 - 11 LAB CHEMISTRY METHOD 09/18/2024 9:08 AM [facility] Glucose 71 70 - 100 mg/dL LAB CHEMISTRY METHOD 09/18/2024 9:08 AM [facility] BUN 7 5 - 25 mg/dL LAB CHEMISTRY METHOD 09/18/2024 9:08 AM [facility] Creatinine 0.23(L) 0.50 - 1.10 mg/dL LAB CHEMISTRY METHOD 09/18/2024 9:08 AM [facility] eGFR 117 >=60 mL/min/1. 73m2 LAB CHEMISTRY METHOD 09/18/2024 9:08 AM [facility] Comment:Calculation based on the??Chronic Kidney Disease Epidemiology Collaboration (CKD-EPI) equation refit??without adjustment for race. BUN/Creatinine Ratio 30.4 LAB CHEMISTRY METHOD 09/18/2024 9:08 AM [facility] Calcium 8.0(L) 8.5 - 10.5 mg/dL LAB CHEMISTRY METHOD 09/18/2024 9:08 AM EST [facility] Blood Venous blood specimen / Unknown Venipuncture / Unknown 09/18/2024 8:13 AM EST 09/18/2024 8:40 AM EST Dennis Hagan MD LAB BLOOD ORDERABLES Performing Organization Address [facility] Co de Phone Number [facility] [address] [place] [address], [place] [phone] * (ABNORMAL) Troponin I high sensitivity (09/18/2024 2:59 AM EST) [facility] High Sensitivity Troponin I 72(H) <=54 ng/L LAB CHEMISTRY METHOD 09/18/2024 3:49 AM EST [facility] Blood Venous blood specimen / Unknown Venipuncture / Unknown 09/18/2024 2:59 AM EST 09/18/2024 3:06 AM EST Narrative [facility] - 09/18/2024 3:49 AM EST High levels of biotin in samples may falsely decrease hsTroponin values. ??Use caution when interpreting hsTroponin results in patients taking biotin who exhibit renal impairment (eGFR <60) or in patients taking more than 20 mg/day of biotin. Katty JOSEPH LAB BLOOD ORDER ADALID Performing Organization Address [facility] Co de Phone Number [facility] [address] [place] [address], [place] [phone] * ECG 12 lead (09/18/2024 2:31 AM EST) Pathologist [facility] Ventricular Rate ECG 120 BPM GEMUSE Atrial Rate 120 BPM GEMUSE P-R Interval 148 ms GEMUSE QRS Duration 88 ms GEMUSE Q-T Interval 318 ms GEMUSE QTc 449 ms GEMUSE P Wave Marion 58 degrees GEMUSE R Marion 6 degrees GEMUSE T Marion 29 degrees GEMUSE ECG Interpretation Sinus tachycardia [...] (ABNORMAL) C-reactive protein (09/17/2024 11:23 PM EST) [facility] C-Reactive Protein 13.40(H) <=0.50 mg/dL LAB CHEMISTRY METHOD 09/18/2024 12:08 AM EST [facility] Blood Venous blood specimen / Unknown Venipuncture / Unknown 09/17/2024 11:23 PM EST 09/17/2024 11:37 PM EST Katty JOSEPH LAB BLOOD ORDER ADALID Performing Organization Address [facility] Co de Phone Number [facility] [address] [place] [address], [place] [phone] * (ABNORMAL) Sedimentation rate (09/17/2024 11:23 PM EST) [facility] Sed Rate 125(H) 0 - 30 mm/hr LAB HEMETOLOGY METHOD 09/17/2024 11:42 PM EST [facility] Blood Venous blood specimen / Unknown Venipuncture / Unknown 09/17/2024 11:23 PM EST 09/17/2024 11:37 PM EST Katty JOSEPH LAB BLOOD ORDER ADALID Performing Organization Address [facility]/ZIP Co de Phone Number [facility] [address] [place] [address], [place] [phone] * XR Chest 1 View (09/17/2024 11:18 [...] Signed Date: 09/18/2024 08:25 ET Workstation ID: [id number] Transcribed By: Self Edit Transcribed Date: 09/18/2024 [...] Gabriel Arguelles Reviewed and Electronically Signed By: aGbriel Arguelles Signed Date: 09/18/2024 08:25 ET Workstation ID: [id number] Transcribed By: Self Edit Transcribed Date: 09/18/2024 08:23 ET Katty Bedolla PA IMG XR PROCEDUR ES * CT Upper [...] (ABNORMAL) Sedimentation rate (09/17/2024 6:33 PM EST) Sed Rate 121(H) 0 - 30 mm/hr LAB HEMETOLOGY METHOD 09/17/2024 7:04 PM EST [facility] Blood Venous blood specimen / Unknown Venipuncture / Unknown 09/17/2024 6:33 PM EST 09/17/2024 6:40 PM EST Rich Varner MD LAB BLOOD ORDERABLES [facility] [address] [place] [address], * (ABNORMAL) C-reactive protein (09/17/2024 6:33 PM EST) [facility] C-Reactive Protein 12.00(H) <=0.50 mg/dL LAB CHEMISTRY METHOD 09/17/2024 7:24 PM EST [facility] Blood Venous blood specimen / Unknown Venipuncture / Unknown 09/17/2024 6:33 PM EST 09/17/2024 6:40 PM EST Rich Varner MD LAB BLOOD ORDERABLES [facility] [address] [place] [address], * (ABNORMAL) CBC auto differential (09/17/2024 6:33 PM EST) [facility] WBC 19.8(H) 4.8 - 10.8 K/mcL LAB HEMETOLOGY METHOD 09/17/2024 6:48 PM [facility] RBC 4.00 3.80 - 4.80 M/mcL LAB HEMETOLOGY METHOD 09/17/2024 6:48 PM [facility] Hemoglobin 9.0(L) 11.5 - 16.0 g/dL LAB HEMETOLOGY METHOD 09/17/2024 6:48 PM [facility] Hematocrit 28.8(L) 35.0 - 47.0 % LAB HEMETOLOGY METHOD 09/17/2024 6:48 PM [facility] MCV 72.5(L) 79.0 - 98.0 FL LAB HEMETOLOGY METHOD 09/17/2024 6:48 PM [facility] MCH 22.7(L) 27.0 - 32.0 pcg LAB HEMETOLOGY METHOD 09/17/2024 6:48 PM [facility] MCHC 31.3(L) 32.0 - 37.0 g/dL LAB HEMETOLOGY METHOD 09/17/2024 6:48 PM [facility] RDW 20.8(H) 11.0 - 15.0 % LAB HEMETOLOGY METHOD 09/17/2024 6:48 PM [facility] Platelets 500(H) 130 - 400 K/mcL LAB HEMETOLOGY METHOD 09/17/2024 6:48 PM [facility] MPV 8.6 7.0 - 11.0 FL LAB HEMETOLOGY METHOD 09/17/2024 6:48 PM [facility] NRBC 0.0 <1.0 % LAB HEMETOLOGY METHOD 09/17/2024 6:48 PM [facility] NRBC Absolute 0.00 <0.10 K/mcL LAB HEMETOLOGY METHOD 09/17/2024 6:48 PM [facility] Neutrophils Relative 89.2 % LAB HEMETOLOGY METHOD 09/17/2024 6:48 PM [facility] Lymphocytes Relative 5.3 % LAB HEMETOLOGY METHOD 09/17/2024 6:48 PM [facility] Monocytes Relative 4.4 % LAB HEMETOLOGY METHOD 09/17/2024 6:48 PM [facility] Eosinophils Relative 0.2 % LAB HEMETOLOGY METHOD 09/17/2024 6:48 PM [facility] Basophils Relative 0.2 % LAB HEMETOLOGY METHOD 09/17/2024 6:48 PM [facility] Immature Granulocytes Relative 0.7 % LAB HEMETOLOGY METHOD 09/17/2024 6:48 PM [facility] Neutrophils Absolute 17.66(H) 1.50 - 7.00 K/mcL LAB HEMETOLOGY METHOD 09/17/2024 6:48 PM [facility] Lymphocytes Absolute 1.05 1.00 - 5.00 K/mcL LAB HEMETOLOGY METHOD 09/17/2024 6:48 PM [facility] Monocytes Absolute 0.86 0.20 - 1.00 K/mcL LAB HEMETOLOGY METHOD 09/17/2024 6:48 PM EST [facility] Eosinophils Absolute 0.03 0.00 - 0.50 K/[facility] LAB HEMETOLOGY METHOD 09/17/2024 6:48 PM EST [facility] Basophils Absolute 0.03 0.00 - 0.20 K/[facility] HEMETOLOGY METHOD 09/17/2024 6:48 PM EST [facility] Immature Granulocytes Absolute 0.13(H) 0.00 - 0.03 K/[facility] LAB HEMETOLOGY METHOD 09/17/2024 6:48 PM [facility] Blood Venous blood specimen / Unknown Venipuncture / Unknown 09/17/2024 6:33 PM EST 09/17/2024 6:40 PM EST Silvestre Kerr DO LAB BLOOD ORDERABLES [facility] [address] [place] [address], * (ABNORMAL) Comprehensive metabolic panel (09/17/2024 6:33 PM EST) Sodium 131(L) 133 - 145 mmol/L LAB CHEMISTRY METHOD 09/17/2024 7:20 PM [facility] Potassium 3.4(L) 3.5 - 5.5 mmol/L LAB CHEMISTRY METHOD 09/17/2024 7:20 PM [facility] Chloride 97 96 - 110 mmol/L LAB CHEMISTRY METHOD 09/17/2024 7:20 PM [facility] CO2 26 21 - 32 mmol/L LAB CHEMISTRY METHOD 09/17/2024 7:20 PM [facility] Anion Gap 8 3 - 11 LAB CHEMISTRY METHOD 09/17/2024 7:20 PM [facility] Glucose 81 70 - 100 mg/dL LAB CHEMISTRY METHOD 09/17/2024 7:20 PM [facility] BUN 9 5 - 25 mg/dL LAB CHEMISTRY METHOD 09/17/2024 7:20 PM [facility] Creatinine 0.18(L) 0.50 - 1.10 mg/dL LAB CHEMISTRY METHOD 09/17/2024 7:20 PM [facility] eGFR 125 >=60 mL/min/1. 73m2 LAB CHEMISTRY METHOD 09/17/2024 7:20 PM [facility] Comment:Calculation based on the??Chronic Kidney Disease Epidemiology Collaboration (CKD-EPI) equation refit??without adjustment for race. BUN/Creatinine Ratio 50.0 LAB CHEMISTRY METHOD 09/17/2024 7:20 PM [facility] Calcium 7.9(L) 8.5 - 10.5 mg/dL LAB CHEMISTRY METHOD 09/17/2024 7:20 PM [facility] AST (SGOT) 9(L) 10 - 42 unit/L LAB CHEMISTRY METHOD 09/17/2024 7:20 PM [facility] ALT (SGPT) <6(L) 10 - 60 unit/L LAB CHEMISTRY METHOD 09/17/2024 7:20 PM [facility] Alkaline Phosphatase 105 42 - 121 unit/L LAB CHEMISTRY METHOD 09/17/2024 7:20 PM [facility] Total Protein 5.8(L) 6.0 - 8.0 g/dL LAB CHEMISTRY METHOD 09/17/2024 7:20 PM [facility] Albumin 1.9(L) 3.2 - 5.0 g/dL LAB CHEMISTRY METHOD 09/17/2024 7:20 PM [facility] Total Bilirubin 0.4 0.0 - 1.4 mg/dL LAB CHEMISTRY METHOD 09/17/2024 7:20 PM [facility] Blood Venous blood specimen / Unknown Venipuncture / Unknown 09/17/2024 6:33 PM EST 09/17/2024 6:40 PM EST Silvestre Kerr DO LAB BLOOD ORDERABLES Performing Organization Address City/[facility]/ZIP Co de Phone Number [facility] [address] [place] [address], [place] [phone] * (ABNORMAL) Blood culture pathogens molecular study (09/17/2024 4:35 PM EST) [facility] Staphylococcus aureus Detected (A) Not Detected LAB MICROBIOLOGY METHOD 09/18/2024 7:17 AM EST [facility] Blood Venous blood specimen / Unknown Venipuncture / Unknown 09/17/2024 4:35 PM EST 09/17/2024 4:46 PM EST Silvestre Kerr DO LAB MICROBIOLOGY - G ENERAL ORDERABLES Performing Organization Address [facility]/ZIP Co de Phone Number [facility] [address] [place] [address], [place] [phone] * (ABNORMAL) Blood culture (09/17/2024 4:35 PM EST) [facility] Culture, Blood Methicillin-Sensi tive Staphylococcus aureus(AA) SANDRA 09/20/2024 9:15 AM EST [facility] Comment: Negative for PBP2a - indicates susceptible to Oxacillin The organism value for this result has been updated. These results have been appended to the previously preliminary verified report. Edited result: Previously reported as Staphylococcus aureus on 09/19/2024 at 0959 EST. Gram Stain Result Aerobic and Anaerobic bottles Gram positive cocci(AA) 09/20/2024 9:15 AM EST [facility] Comment: This is an appended report. [...] [facility]/ZIP Co de Phone Number [facility] [address] [place] [address], * Lactate (09/17/2024 4:35 PM EST) [facility] Signature Lactate 1.4 0.4 - 2.0 mmol/L LAB CHEMISTRY METHOD 09/17/2024 5:13 PM EST [facility] Blood Venous blood specimen / Unknown Venipuncture / Unknown 09/17/2024 4:35 PM EST 09/17/2024 4:47 PM EST Silvestre Kerr DO LAB BLOOD ORDERABLES Performing Organization Address [facility]/ZIP Co de Phone Number [facility] [address] [place] [address], [place] [phone] * (ABNORMAL) Blood culture (09/17/2024 4:35 PM EST) [facility] Culture, Blood Staphylococcus aureus(AA) LAB MICROBIOLOGY METHOD 09/20/2024 9:17 AM EST [facility] Comment: Negative for PBP2a - indicates susceptible to Oxacillin FOR SUSCEPTIBILITIES, REFER TO PREVIOUS CULTURE FROM 09-17-24 at 1635. The organism value for this result has been updated. These results have been appended to the previously preliminary verified report. Gram Stain Result Aerobic and Anaerobic bottles Gram positive cocci(AA) 09/20/2024 9:17 AM [facility] Comment: This is an appended report. These results have been appended to a previously preliminary verified report. Corrected result: Previously reported as Anaerobic bottle Gram positive cocci on 09/18/2024 at 0452 EST. Blood Venipuncture / Unknown 09/17/2024 4:35 PM EST 09/17/2024 4:48 PM EST Silvestre Kerr DO LAB MICROBIOLOGY - G ENERAL ORDERABLES [facility] [address] [place] [address], [place] [phone] * Respiratory virus panel molecular study (09/17/2024 4:06 PM EST) [facility] Adenovirus Detection by PCR Not Detected Not Detected LAB MICROBIOLOGY METHOD 09/17/2024 5:39 PM EST [facility] Influenza A PCR Not Detected Not Detected LAB MICROBIOLOGY METHOD 09/17/2024 5:39 PM EST [facility] Influenza B PCR Not Detected Not Detected LAB MICROBIOLOGY METHOD 09/17/2024 5:39 PM EST [facility] Coronavirus 229E Not Detected Not Detected LAB MICROBIOLOGY METHOD 09/17/2024 5:39 PM EST [facility] Coronavirus HKU1 Not Detected Not Detected LAB MICROBIOLOGY METHOD 09/17/2024 5:39 PM [facility] Coronavirus OC43 Not Detected Not Detected LAB MICROBIOLOGY METHOD 09/17/2024 5:39 PM [facility] Coronavirus NL63 Not Detected Not Detected LAB MICROBIOLOGY METHOD 09/17/2024 5:39 PM [facility] Parainfluenza Virus 1 Not Detected Not Detected LAB MICROBIOLOGY METHOD 09/17/2024 5:39 PM [facility] Parainfluenza Virus 2 Not Detected Not Detected LAB MICROBIOLOGY METHOD 09/17/2024 5:39 PM [facility] Parainfluenza Virus 3 Not Detected Not Detected LAB MICROBIOLOGY METHOD 09/17/2024 5:39 PM [facility] Parainfluenza Virus 4 Not Detected Not Detected LAB MICROBIOLOGY METHOD 09/17/2024 5:39 PM [facility] RSV PCR Not Detected Not Detected LAB MICROBIOLOGY METHOD 09/17/2024 5:39 PM [facility] Human Metapneumovirus A and B Not Detected Not Detected LAB MICROBIOLOGY METHOD 09/17/2024 5:39 PM [facility] Rhinovirus/Entero virus Not Detected Not Detected LAB MICROBIOLOGY METHOD 09/17/2024 5:39 PM [facility] Bordetella pertussis Not Detected Not Detected LAB MICROBIOLOGY METHOD 09/17/2024 5:39 PM [facility] Bordetella parapertussis Not Detected Not Detected LAB MICROBIOLOGY METHOD 09/17/2024 5:39 PM [facility] Mycoplasma pneumo by PCR Not Detected Not Detected LAB MICROBIOLOGY METHOD 09/17/2024 5:39 PM [facility] Chlamydia pneumoniae Not Detected Not Detected LAB MICROBIOLOGY METHOD 09/17/2024 5:39 PM [facility] SARS COV-2 Not Detected Not Detected LAB MICROBIOLOGY METHOD 09/17/2024 5:39 PM [facility] Swab Both anterior nares / Unknown Non-blood Collection / Unknown 09/17/2024 4:06 PM EST 09/17/2024 4:36 PM EST [facility]ative [facility] - 09/17/2024 5:39 PM EST Testing was performed using the [employer] Respiratory Pathogen PCR Assay. All results must [...] DO LAB MICROBIOLOGY - G ENERAL ORDERABLES [facility] [address] [place] [address], documented in this encounter Visit Diagnoses Diagnosis [...] other bacteria (CMS/HCC) documented in this encounter Admitting Diagnoses [...] Given 09/20/2024 2:08 PM EST 1,000 mg acetaminophen (TYLENOL) tablet 650 mg 650 mg, oral, Every 6 hours PRN, mild pain, fever - temperature GREATER than 38 C (100.4 F), Starting on Tue09/18/24 at 0836 Given 09/18/2024 8:30 PM EST 650 mg Given 09/18/2024 9:02 AM EST 650 mg ascorbic acid (VITAMIN C) tablet 500 mg 500 mg, oral, Daily, First dose on Tue09/17/24 at 2043 Given 09/21/2024 9:57 AM EST 500 mg Given 09/20/2024 9:59 AM EST 500 mg atorvastatin (LIPITOR) tablet 80 mg 80 mg, oral, Daily, First dose on Tue09/17/24 at 2043 Given 09/22/2024 8:40 AM EST 80 mg Given 09/21/2024 9:56 AM EST 80 mg Given 09/20/2024 9:59 AM EST 80 mg ceFAZolin (ANCEF) 2 g in sterile water 20 mL IV syringe 2 g, intravenous, Administer over 3 Minutes, Every 8 hours, First dose on Tue09/18/24 at 1045, For 14 days, Indication: Bacteremia Given 09/19/2024 12:18 AM EST 2 g Given 09/18/2024 2:19 PM EST 2 g ceFAZolin (ANCEF) 2 g in sterile water 20 mL IV syringe 2 g, intravenous, Administer over 3 Minutes, Every 8 hours, First dose (after last modification) on Tue09/19/24 at 0800, For 40 doses, Indication: Bacteremia Given 09/23/2024 4:14 AM EST 2 g Given 09/22/2024 8:38 PM EST 2 g Given 09/22/2024 11:57 AM EST 2 g cefTRIAXone (ROCEPHIN) 2 g in sterile water 20 mL IV syringe 2 g, intravenous, at 400 mL/hr, Administer over 3 Minutes, Every 24 hours, First dose on Tue09/17/24 at 2100, For 7 days, Do not administer simultaneously with any calcium containing solutions via a Y-site in any patient., Indication: Bone/Joint Given 09/18/2024 4:19 AM EST 2 g 400 mL/hr clonazePAM (KlonoPIN) tablet 0.5 mg 0.5 mg, [...] Given 09/18/2024 8:42 AM EST 0.5 mg dapagliflozin propanediol (FARXIGA) tablet 10 mg 10 mg, oral, Daily, First dose on Tue09/17/24 at 2043, Was patient receiving dapagliflozin prior to admission for the treatment of HEART FAILURE? (See order restrictions above): Yes Given 09/21/2024 9:56 AM EST 10 mg Given 09/20/2024 9:59 AM EST 10 mg furosemide (LASIX) tablet 20 mg 20 mg, oral, Daily, First dose on Tue09/17/24 at 2042 Given 09/21/2024 9:57 AM EST 20 mg Given 09/20/2024 9:59 AM EST 20 mg Given 09/18/2024 8:43 AM EST 20 mg glycopyrrolate (ROBINUL) injection 0.2 mg 0.2 mg, subcutaneous, Every 6 hours PRN, secretion, Starting on Tue09/23/24 at 1114 haloperidol lactate (HALDOL) injection 3 mg 3 mg, intravenous, Once, On Melissa 09/20/24 at 1630, For 1 dose, FOR MRI May be ordered via either intramuscular or intravenous route. If ordered IV, maximum of 5 mg/minute. Given 09/20/2024 5:20 PM EST 3 mg haloperidol lactate (HALDOL) injection 4 mg 4 mg, intravenous, Once as needed, agitation, for Imaging, Starting on Tue09/21/24 at 1204, For 1 dose, 2nd Line Option: - Give by IV route ONLY IF unable to take tablet formulation by mouth. - If inadequate response within 60 minutes, contact provider for persistent agitation, ongoing assessment, and medication orders. May be ordered via either intramuscular or intravenous route. If ordered IV, maximum of 5 mg/minute. Given 09/21/2024 1:09 PM EST 4 mg haloperidol lactate (HALDOL) injection 5 mg 5 mg, intravenous, Once, On Melissa 09/20/24 at 1815, For 1 dose, FOR MRI May be ordered via either intramuscular or intravenous route. If ordered IV, maximum of 5 mg/minute. Given 09/20/2024 5:56 PM EST 5 mg heparin (UFH) injection 5,000 Units 5,000 Units, subcutaneous, Every 8 hours scheduled, First dose on Tu09/18/24 at 2200, Enter Indication for use of heparin (UFH) instead of enoxaparin (LOVENOX): (free text): S/P joint aspiration, Indication: VTE Prophylaxis, Indications: Prophylaxis of Venous Thromboembolism Given 09/19/2024 12:17 AM EST 5,000 Units Left Upper Abdomen heparin (UFH) injection 5,000 Units 5,000 Units, subcutaneous, Every 8 hours scheduled, First dose (after last modification) on Tue09/19/24 at 0800, Enter Indication for use of heparin (UFH) instead of enoxaparin (LOVENOX): (free text): S/P joint aspiration, Indication: VTE Prophylaxis, Indications: Prophylaxis of Venous Thromboembolism Given 09/22/2024 2:18 PM EST 5,000 Units Right Lower Abdomen Given 09/22/2024 5:59 AM EST 5,000 Units Left Lower Abdomen Given 09/21/2024 1:21 PM EST 5,000 Units R ight Lower Abdomen HYDROmorphone (PF) 0.5 mg/0.5 mL injection - ADS Override Pull Starting on Tue09/19/24 at 1115, For 1 dose, Created by cabinet override HYDROmorphone (PF) injection 0.25 mg 0.25 mg, intravenous, Every 5 min PRN, severe pain or when therapies for moderate pain were not effective, Starting on Tue09/19/24 at 1112, For 5 doses, Recovery (only) Given 09/19/2024 11:22 AM EST 0.25 mg Given 09/19/2024 11:15 AM EST 0.25 mg iopamidoL (ISOVUE-370) 370 mg iodine /mL (76 %) injection 100 mL 100 mL, intravenous, Once in imaging, Starting on Tue09/17/24 at 2032, For 1 dose Given 09/17/2024 8:34 PM EST 70 mL iopamidoL (ISOVUE-370) 370 mg iodine /mL (76 %) injection 90 mL 90 mL, intravenous, Once in imaging, Starting on Tue09/18/24 at 1124, For 1 dose Given 09/18/2024 11:24 AM EST 75 mL lactated Ringer's infusion 100 mL/hr, intravenous, Continuous, Starting on Tue09/19/24 at 1130, Recovery (only) Continued from OR 09/19/2024 11:33 AM EST 100 mL/hr 100 mL/hr lidocaine (XYLOCAINE) 1 % injection 5 mL 5 mL, intradermal, Once in imaging, Starting on Tue09/18/24 at 1156, For 1 dose Given 09/18/2024 11:56 AM EST 5 mL Right Upper Arm LORazepam (ATIVAN) injection 0.5 mg 0.5 mg, intravenous, Once, On Tue09/18/24 at 1900, For 1 dose, Prior to IV use, lorazepam injection should be DILUTED with an equal volume of compatible solution; Rate of administration should NOT exceed 2 mg/min. Given 09/18/2024 6:47 PM EST 0.5 mg LORazepam (ATIVAN) injection 0.5 mg 0.5 mg, intravenous, Every 6 hours PRN, anxiety, Starting on Tue09/23/24 at 1401, Prior to IV use, lorazepam injection should be DILUTED with an equal volume of compatible solution; Rate of administration should NOT exceed 2 mg/min. Given 09/23/2024 2:14 PM EST 0.5 mg magnesium sulfate 2 gram/50 mL (4 %) IVPB 2 g 2 g, intravenous, at 25 mL/hr, Administer over 2 Hours, Once, On Tue09/19/24 at 0815, For 1 dose New Bag 09/19/2024 1:02 PM EST 2 g 25 mL/hr metoprolol tartrate (LOPRESSOR) injection 5 mg 5 mg, intravenous, Every 6 hours PRN, other, For HR above 120, Starting on Tue09/21/24 at 1018, For IV Push - Administer undiluted over 2 minutes Hold if SBP below 100 or HR below 60 Given 09/23/2024 3:14 AM EST 5 mg metoprolol tartrate (LOPRESSOR) injection 5 mg 5 mg, intravenous, Once, On Tue09/23/24 at 0615, For 1 dose, For IV Push - Administer undiluted over 2 minutes Given 09/23/2024 5:59 AM EST 5 mg metoprolol tartrate (LOPRESSOR) tablet 25 mg 25 mg, oral, 2 times daily, First dose on Tue09/18/24 at 0845 Given 09/22/2024 8:59 PM EST 25 mg Given 09/22/2024 8:40 AM EST 25 mg Given 09/21/2024 8:00 PM EST 25 mg morphine 2 mg/mL injection 2 mg 2 mg, intravenous, Every 4 hours PRN, moderate pain, Starting on Tue09/23/24 at 1110 Given 09/24/2024 3:01 PM EST 2 mg morphine injection 4 mg 4 mg, intravenous, Every 4 hours PRN, severe pain, Starting on Tue09/23/24 at 1110 oxyCODONE (ROXICODONE) immediate release tablet 2.5 mg 2.5 mg, oral, Every 3 hours PRN, moderate pain, Starting on Tue09/19/24 at 1309, Recovery & On Unit Given 09/23/2024 10:03 AM EST 2.5 mg perflutren lipid microsphere (DEFINITY) 1.3 mL in sodium chloride 0.9% 8.7 mL injection 10 mL, intravenous, Administer over 10 Minutes, Once in imaging, Starting on Tue09/18/24 at 1358, For 1 dose, CV Medication Orders Given 09/18/2024 1:58 PM EST 2 mL potassium chloride (KLOR-CON M20) CR tablet 40 mEq 40 mEq, oral, Once, On 09/22/24 at 1215, For 1 dose, Tablet may be swallowed whole (do not crush/chew/suck on) OR broken in half and each half swallowed separately OR dissolved (whole tablet) in ~4 ounces of water (allow ~2 minutes to dissolve, stir well and administer immediately). Given 09/22/2024 11:58 AM EST 40 mEq potassium chloride 10 mEq/100 mL IVPB 10 mEq 10 mEq, intravenous, at 100 mL/hr, Administer over 1 Hours, Every 1 hour, First dose on Tue09/18/24 at 0845, For 2 doses New Bag 09/18/2024 11:13 AM EST 10 mEq 100 mL/hr New Bag 09/18/2024 9:04 AM EST 10 mEq 100 mL/hr sertraline (ZOLOFT) tablet 25 mg 25 mg, oral, Daily, First dose on Tue09/18/24 at 1000 Given 09/21/2024 9:57 AM EST 25 mg Given 09/20/2024 9:59 AM EST 25 mg sodium chloride 0.9 % bolus 500 mL 500 mL, intravenous, at 500 mL/hr, Administer over 1 Hours, Once, On Tue09/18/24 at 0300, For 1 dose New Bag 09/18/2024 3:03 AM EST 500 mL 500 mL/hr sodium chloride 0.9 % flush 10 mL 10 mL, intravenous, Once, On Tue09/17/24 at 2033, For 1 dose Given 09/17/2024 8:33 PM EST 10 mL sodium chloride 0.9 % flush 10 mL 10 mL, intravenous, Once, On Tue09/18/24 at 1145, For 1 dose Given 09/18/2024 11:25 AM EST 10 mL spironolactone (ALDACTONE) tablet 25 mg 25 mg, oral, Daily, First dose on Tue09/17/24 at 2043, HAZARDOUS Drug Precautions - Low Risk (Category [...] capsules only for allowable dosage forms Given 09/21/2024 9:57 AM EST 25 mg Given 09/20/2024 9:59 AM EST 25 mg Given 09/18/2024 8:43 AM EST 25 mg vancomycin (VANCOCIN) 750 mg in sodium chloride 0.9 % 250 mL IVPB 750 mg, intravenous, at 250 mL/hr, Administer over 60 Minutes, Every 8 hours, First dose on Tue09/17/24 at 2200, For 7 days, Trough goal = 15-18, Indication: Bone/Joint New Bag 09/18/2024 5:05 AM EST 750 mg 2 50 mL/hr documented in this encounter Discontinued Medications Medication [...] On Unit 0917 (Not Given - Provider: Latitia C Eden, RN - Reason: Patient/Resident/Agen t refused - education provided )1400 (Not Given - Provider: Delvsi Eden RN - Reason: Patient/Resident/Agen t refused [...] Every 6 hours PRN, secretion, Starting on Tue09/23/24 at 1114 LORazepam (ATIVAN) injection 0.5 mg 0.5 mg, intravenous, Every 6 hours PRN, anxiety, Starting on Tue09/23/24 at 1401, Prior to IV use, lorazepam [...] glycopyrrolate (ROBINUL) injection 0.2 mg 1 09/23/2024 morphine injection 4 mg 1 09/23/2024 thiamine (VITAMIN B-1) injection 100 mg 1 0 09/23/2024 haloperidol lactate (HALDOL) injection 3 mg 1 09/20/2024 dextrose (D50W) 50% injection 12.5 g 1 09/05 dextrose (D50W) 50% injection 25 g 1 2024 dextrose 15 gram/60 mL oral solution 15 g 09/19/2024 dextrose 15 gram/60 mL oral solution 30 g 1 09/19/2024 Glucagon HCl (rDNA) injection 1 mg 1 2024 HYDROmorphone (PF) injection 0.25 mg 1 09/05 ondansetron (PF) (ZOFRAN) injection 4 mg 1 09/19/2024 ondansetron ODT (ZOFRAN-ODT) disintegrating tablet 4 mg 1 09/19/2024 oxyCODONE (ROXICODONE) immed iate release tablet 5 mg 3 09/19/2024 09/18/2024 traMADoL (ULTRAM) tablet 50 mg 1 09/19/2024 metoprolol tartrate (LOPRESS OR) 5 mg in sodium chloride 0.9 % 50 mL IVPB 1 09/18/2024 carvediloL (COREG) tablet 3.125 mg 1 2024 magnesium sulfate 2 gram/50 mL (4 %) IVPB 2 g 1 09/17/2024 sodium chloride 0.9 % infusion 1 09/17/2024 Lab Orders Without Results Count Last Ordered D ate First Ordered Date POCT GLUCOSE, BLOOD 13 09/23/2024 09/19/19 Consult Count Last Ordered Date First Orde [...] documented as of this encounter Care Teams Outside [facility] Relationship Specialty Start Date End Date Dale Pinto MD [address] [place] [address] PCP - General Internal Medicine 11/10/21 documented as of this encounter
--- OUTSIDE RECORDS SUMMARY | 2024-09-28 14:18 | XMS_ITS | Encounter Summary ---
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) Procedures [facility] IP/OBS CARE INITIAL MODERATE LEVEL PER DAY Dennis Hagan MD [address] [place] [address] [facility] [address] [address] Referral ID Status Reason Start Date Expiration Date Visits Re quested Visits Authorized [id number] 1 1 Encounter Details Date Type Department Care Team (Late st Contact Info) Description 09/19/2024 9:35 AM EST Anesthesia Event [facility] Main OR [address] [place] [address] Hans Rivera DO [address] [place] [address] Anesthesia Record Procedure Summary Procedure Name Responsible Anesthesiologist Anesthesia Start Time Anesthesia Stop Time ARTHROSCOPY SHOULDER WASHOUT (Right: Shoulder) Hans Rivera DO 09/19/24 0935 09/19/24 1106 Events Date Time Event Comment 09/19/2024 0851 0935 An Start 0935 An Start Data The patient wa s reevaluated immediately before moderate or deep sedation use and before anesthesia induction. 0935 In Room 0942 An Induction 0944 An Intubation 0945 Anesthesia Ready 0946 Emmett Induction and i ntubation performed on bed with no complication noted. Gently moved patient with surgeon and HOT team to OR table with careful positioning of extremities and neck. All PPP C-spine neutral. 1015 Proc Start 1052 Proc Fin 1056 An Extubation 1058 an stop data 1058 Out of Room 1100 Handoff to RN I completed my handoff to the receiving nurse during which we: 1. Identified the patient 2. Identified the responsible provider 3. Reviewed the pertinent medical history 4. Discussed the surgical course 5. Reviewed intra-op anesthesia management and issues during anesthesia 6. Set expectations for post-procedure period 7. Allowed opportunity for questions and acknowledgement of understanding. 1106 An Stop Meds Name Total fentaNYL (SUBLIMAZE) injection 50 mcg propofol (DIPRIVAN) injection 10 mg/mL 5 0 mg rocuronium 50 mg ondansetron 2 mg/mL 4 mg phenylephrine (CARLOS-SYNEPHRINE) 100 mcg/m L syringe 10 mL 600 mcg dexamethasone (DECADRON) injection 4 mg/ mL 4 mg lidocaine PF (XYLOCAINE-MPF) local injec tion 2% 50 mg ketamine (KETALAR) injection 50 mg/mL sy ringe 50 mg phenylephrine (CARLOS-SYNEPHRIN E) 20,000 mcg in sodium chloride 0.9 % 250 mL infusion 21.45 mg sugammadex (BRIDION) injection 100 mg/mL 200 mg lactated Ringer's infusion 400 mL * Agents Name O2 * Blood No blood administrations on file. Lines, Drains, and Airways Type Details Placement Removal Wound Skin tear; 08/10/24; 1132; Y; Yes; Superficial (1st); Elbow; Anterior, Left, Lower, Proximal; reddened, skin tear, mepliex applied 08/10/24 1132 by Radha Cardona RN Wound Pressure inj; ; 1134; Y; Yes; Sacrum; reddened, open area 08/10/24 1134 by Radha Cardona RN Wound Dermatitis; 09/18/24 ; 0000; Y; Yes; Breast; Left, Lower; red, mosit 09/18/24 0000 by Daniela Allen RN Wound Dermatitis; 09/18/24 ; 0000; Y; Yes; Breast; Lower, Right; red, moist 09/18/24 0000 by Daniela Allen RN Wound Pressure inj; ; 0000; Y; Yes; Toe D2, Second; Anterior, Right; dark 09/18/24 0000 by Daniela Allen RN Wound Open Incisio; ; N; Yes; Shoulder; Right 09/19/24 0000 by Vijay Saxena RN Peripheral IV Placement Date: 09/05 11/27; Placement Time: 2200; Catheter Size: 20 G; Orientation: Posterior, Right; Location: Hand; Removal Date: 09/22/24; Removal Time: 0800; Removal Reason: Drainage 09/17/24 2200 by Sharita Fortune RN 09/22/24 0800 by Mamie Gomez RN ETT Placement Date: 09/05 01/27; Placement Time: 0948 (created via procedure documentation); Mask Ventilation: 2; Technique: Video laryngoscopy; Type: ETT; Cuffed: Yes; Blade Size: 3; Location: Oral; Insertion Attempts: 1; Placement Verification: Auscultation, Capnometry, Palpation of cuff; Removal Date: 09/19/24; Removal Time: 1058 09/19/24 0948 by Charles Mclean CRNA 09/19/24 1058 by Charles Mclean CRNA Peripheral IV Placement Date: 09/05 01/27; Placement Time: 0950; Existing LDA Placed by: Other (Comment); Change Due: (present iv in wrong arm); Catheter Size: 20 G; Orientation: Anterior, Distal, Left; Location: Forearm; Site Prep: Chlorhexidine; Inserted by: carolyn Magallon; Insertion Attempts: 1; Patient Tolerance: Tolerated well; Removal Date: 09/22/24; Removal Time: 0800; Removal Reason: Drainage 09/19/24 0950 by Carolyn Magallon RN 09/22/24 0800 by Mamie Gomez RN documented in this encounter Social History Tobacco [...] on file documented as of this encounter Functional Status Functional Status Response [...] No 08/08/2024 documented as of this encounter Progress Notes * Charles Mclean CRNA - 09/19/2024 11:07 AM EST Patient: Louann Barrientos Procedure Summary Date: 09/19/24 Room / Location: [facility] OR [address] [place] [address] OR Anesthesia Start: 934 Anesthesia Stop: 1105 Procedure: ARTHROSCOPY SHOULDER WASHOUT (Right: Shoulder) Diagnosis: Pyogenic arthritis of right shoulder region, due to unspecified organism ([facility]) Surgeons: Henri Mcdowell MD Responsible Provider: Hans Rivera DO Anesthesia Type: general ASA Status: 4 Anesthesia Plan: general Last Vitals: Vitals Value Taken Time BP 126/55 09/19/24 1107 Temp 96.8 09/19/24 1107 Pulse 80 09/19/24 1107 Resp 18 09/19/24 1107 SpO2 99 09/19/24 1107 Pain Score: 0 - No pain Anesthesia Post Evaluation Patient location during evaluation: PACU Patient participation: complete - patient participated Level of consciousness: responsive to light touch and responsive to verbal stimuli Pain score: 2 Pain management: adequate Airway patency: patent Anesthetic complications: no Cardiovascular status: acceptable and hemodynamically stable Respiratory status: acceptable Hydration status: acceptable Nausea: No Vomiting: No There were no known notable events for this encounter. * Charles Mclean CRNA - 09/19/2024 9:48 AM ESTAssociated Order(s): Intubation General Information and Staff Patient location during procedure: OR Performed by: Charles Mclean CRNA Authorized by: Hans Rivera DO Intubation Airway not difficult Urgency: elective Final [...] mask + OA or adjuvant +/- NMBA * Hans Rivera DO - 09/19/2024 7:56 AM EST 74 y.o. female scheduled for Septic arthritis ([facility]); Arthritis of right shoulder due to other bacte* [ARTHROSCOPY SHOULDER WASHOUT (Right: Shoulder)] Ht Readings from Last 1 Encounters: 09/18/24 1.549 m (60.98 ) Wt Readings from Last 1 Encounters: 09/18/24 46.2 kg (101 lb 13.6 oz) Body mass index is 19.25 kg/m??. Past Medical History: Diagnosis Date Raynaud disease DX:Raynaud disease Rheumatoid arthritis ([facility]/HCC) DX:Rheumatoid arthritis (HCC) Sicca (CMS/HCC) DX:Sicca (HCC) Past Surgical History: Procedure Laterality Date LEG SURGERY Left 11/16/2022 PROCEDURE:LEG SURGERY;COMMENT:Procedure: I&D LEFT LOWER EXTREMITY; Surgeon: Robbie Villagran MD;Location: [facility] MAIN OPERATING ROOM; Service: Orthopedic Trauma; Laterality: Left; OTHER SURGICAL HISTORY Left 10/16/2022 PROCEDURE:ORIF FEMORAL SHAFT FRACTURE W/ PLATES AND SCREWS;COMMENT:Procedure: REPAIR NONUNION LEFT FEMUR/ORIF LEFT FEMUR; Surgeon: Robbie Villagran MD; Location: [facility] MAIN OPERATING ROOM; Service: Orthopedic Trauma; Laterality: Left; TOTAL HIP ARTHROPLASTY Right PROCEDURE:TOTAL HIP ARTHROPLASTY Denies anesthesia complications Allergies Allergen Reactions Penicillins Sulfa (Sulfonamide Antibiotics) No current facility-administered medications on file prior [...] by mouth 1 (one) time each day. Current In-hospital Medications Prior to Admission medications Medication Sig Start [...] time each day.08/15/24 09/14/24 Isa Wright MD Social History Tobacco Use Smoking status: Never Smokeless tobacco: Never Substance Use Topics Alcohol use: Never Drug use: Never Is the patient a current smoker (e.g. cigarette, cigar, pip, e-cigarette, or mariajuana)? Yes [] No[] Patient previously instructed to abstain from smoking on the day of procedure? Yes [] No[] Patient smoked on the day of procedure? Yes [] No[] ASPIRE smoking VBR: [] Not interested in quitting [] Interested in quitting- referred to treatment [] Interested in quitting - treatment provided Visit Vitals BP 111/50 (BP Location: Left arm, Patient Position: Lying) Pulse 91 Temp 36.4 ??C (97.5 ??F) (Temporal) Resp 20 Ht 1.549 m (60.98 ) Wt 46.2 kg (101 lb 13.6 oz) SpO2 95% BMI 19.25 kg/m?? Smoking Status Never BSA 1.42 m?? LABS: Lab Results Component Value Date WBC 23.3 (H) 09/18/2024 HGB 9.4 (L) 09/18/2024 HCT 30.0 (L) 09/18/2024 MCV 71.8 (L) 09/18/2024 PLT 403 (H) 09/18/2024 Lab Results Component Value Date GLUCOSE 81 09/19/2024 CALCIUM 7.9 (L) 09/19/2024 NA 137 09/19/2024 K 3.9 09/19/2024 CO2 23 09/19/2024 CL 102 09/19/2024 BUN 12 09/19/2024 CREATININE <0.15 (L) 09/19/2024 Lab Results Component Value Date INR 1.0 08/09/2024 No results found for: PTT EKG Encounter Date: 09/17/24 ECG 12 lead Result Value Ventricular Rate ECG 120 Atrial Rate 120 P-R Interval 148 QRS Duration 88 Q-T Interval 318 QTc 449 P Wave [place] 58 R [place] 6 T [place] 29 ECG Interpretation Sinus tachycardia Minimal voltage criteria for LVH, may be normal variant Borderline ECG When compared with ECG of 09-AUG-2024 02:15, Nonspecific T wave abnormality no longer evident in Anterior leads Confirmed by HARRIS AVILES ([id number]) on 09/18/2024 9:36:05 PM *Note: Due to a large number of results and/or encounters for the requested time period, some results have not been displayed. A complete set of results can be found in Results Review. ECHO 09/17/24 TRANSTHORACIC ECHOCARDIOGRAM (TTE) COMPLETE (CONTRAST/BUBBLE/3D PRN) 09/18/2024 09/18/2024 Interpretation Summary Left ventricle cavity size is normal. Left [...] normal. Tricuspid Valve: Estimated RA pressure is 8 mmHg. The RVSP is estimated at 53 mmHg. Aortic Valve: There is moderate regurgitation. Mild to moderate mitral insufficiency is also documented. Signed by: Rich Little MD on 09/18/2024 4:44 PM CATH No results found for this or any previous visit. 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 Anesthesia Evaluation Patient summary reviewed Airway Mallampati: II Dental - normal exam Pulmonary - normal exam Cardiovascular - normal exam Neuro/Psych GI/Hepatic/Renal Endo/Other Abdominal PONV RISK SCORE: 3 Vitals: 09/18/24 1949 09/19/24 0100 09/19/24 0329 09/19/24 0746 BP: 126/52 130/56 102/52 111/50 BP Location: Left arm Left arm Left arm Left arm Patient Position: Lying Lying Lying Lying Pulse: 91 93 77 91 Resp: Temp: 36.2 ??C (97.2 ??F) 36.9 ??C (98.4 ??F) 36.2 ??C (97.2 ??F) 36.4 ??C (97.5 ??F) TempSrc: Temporal Temporal Temporal Temporal SpO2: 97% 100% 95% Weight: Height: SpO2 Readings from Last 1 Encounters: 09/19/24 95% WBC Date Value Ref Range Status 09/18/2024 23.3 (H) 4.8 - 10.8 K/mcL Final RBC Date Value Ref Range Status 09/18/2024 4.20 3.80 - 4.80 M/mcL Final Hemoglobin Date Value Ref Range Status 09/18/2024 9.4 (L) 11.5 - 16.0 g/dL Final Hematocrit Date Value Ref Range Status 09/18/2024 30.0 (L) 35.0 - 47.0 % Final Platelets Date Value Ref Range Status 09/18/2024 403 (H) 130 - 400 K/mcL Final MCV Date Value Ref Range Status 09/18/2024 71.8 (L) 79.0 - 98.0 FL Final Allergies Allergen Reactions Penicillins Sulfa (Sulfonamide Antibiotics) STOP BANG: No data recorded NPO Status: No data recorded documented in this encounter Plan of Treatment Not on file documented as of this encounter Procedures Procedure Name Priority Date/Time Associated Diagnosis Comments TH AN ENDOTRACHEAL(NO CHARGE) Routine 09/19/2024 9:48 AM EST documented in this encounter Results * TH AN ENDOTRACHEAL(NO CHARGE) (09/19/2024 9:48 AM EST) Narrative Charles Mclean CRNA - 09/19/2024 9:48 AM EST Charles Mclean CRNA ? 09/19/2024 ??9:48 AM General Information and Staff Patient location during procedure: OR Performed by: Charles Mclean CRNA Authorized by: Hans Rivera DO [...] NMBA Hans Rivera DO ANESTHESIA ORDERABLE S documented in this encounter Visit Diagnoses Not on filedocumented in this encounter Administered Medications Inactive Administered Medications - up to 3 most recent administrations Medication Order MAR Action Action Date Dose Rate Site dexAMETHasone (DECADRON) injection intravenous, As needed, Starting on Tue09/19/24 at 0945, Anesthesia Intraprocedure Given 09/19/2024 9:45 AM EST 4 mg fentaNYL (PF) (SUBLIMAZE) injection intravenous, As needed, Starting on Tue09/19/24 at 0934, Anesthesia Intraprocedure Given 09/19/2024 9:34 AM EST 50 mcg ketamine (KETALAR) injection intravenous, As needed, Starting on Tue09/19/24 at 0939, Anesthesia Intraprocedure Given 09/19/2024 9:39 AM EST 50 mg lactated Ringer's infusion intravenous, Continuous PRN, Starting on Tue09/19/24 at 0935, Anesthesia Intraprocedure Continued from OR 09/19/2024 11:23 AM EST New Bag 09/19/2024 9:35 AM EST lidocaine (PF) (XYLOCAINE-MPF) 2 % injection injection, As needed, Starting on Tue09/19/24 at 0942, Anesthesia Intraprocedure Given 09/19/2024 9:42 AM EST 50 mg ondansetron (PF) (ZOFRAN) injection intravenous, As needed, Starting on Tue09/19/24 at 0945, Anesthesia Intraprocedure Given 09/19/2024 9:45 AM EST 4 mg phenylephrine (CARLOS-SYNEPHRINE) 20,000 mcg in sodium chloride 0.9 % 250 mL infusion intravenous, Continuous PRN, Starting on Tue09/19/24 at 0942, Anesthesia Intraprocedure Rate/Dose Change 09/19/2024 10:22 AM EST 0.317 mcg/kg/min 11 mL/hr Rate/Dose Change 09/19/2024 10:20 AM EST 0.635 mcg/kg/min 22 mL/hr Rate/Dose Change 09/19/2024 10:07 AM EST 1.299 mcg/kg/min 45 mL/hr phenylephrine (CARLOS-SYNEPHRINE) injection intravenous, As needed, Starting on Tue09/19/24 at 0944, Anesthesia Intraprocedure Given 09/19/2024 9:52 AM ES T 150 mcg Given 09/19/2024 9:50 AM EST 150 mcg Given 09/19/2024 9:46 AM EST 150 mcg propofoL (DIPRIVAN) injection intravenous, As needed, Starting on Tue09/19/24 at 0942, Anesthesia Intraprocedure Given 09/19/2024 9:42 AM EST 5 0 mg rocuronium (ZEMURON) injection intravenous, As needed, Starting on Tue09/19/24 at 0942, Anesthesia Intraprocedure Given 09/19/2024 9:42 AM EST 5 0 mg sugammadex (BRIDION) 100 mg/mL injection intravenous, As needed, Starting on Tue09/19/24 at 1049, Anesthesia Intraprocedure Given 09/19/2024 10:[address] 200 mg documented in this encounter Care Teams Floor Plan Adjuster Relationship Specialty Start Date End Date Dale Pinto MD [address] [place] [address] PCP - General Internal Medicine 11/10/21 documented as of this encounter
--- OUTSIDE RECORDS SUMMARY | 2024-09-28 14:19 | XMS_ITS ---
Author Organization [facility] Address [address] [place] [address] Care Team Providers Care Boilers And Pressure Vessels Inspector Name Role Phone Blair QUIÑONES, Dale Primary Care Provider Peggy Jackson [phone] REASON FOR VISIT no show Encounters Encounter Location Date Provider Diagnosis [facility] [address] [place] [address] 07/25/2024 Peggy Parker Plan Of Treatment No Information Progress Notes * ILIANALouann KDOB:1950 (74 yo F)Acc No.[id number]:07/25/2024 Patient:?Louann BARRIENTOS :1950???Age:74 Y???Sex:Female Address:[address] [place] [address], [id number] * true * Date:? Generated for Printi can/Dominic/eTransmitting on:?09/28/2024 02:19 PM EST
--- OUTSIDE RECORDS SUMMARY | 2024-09-28 14:19 | XMS_ITS ---
Author Organization [facility] Address [address] [place] [address] Care Team Providers Care Food Writer Name Role Phone Blair QUIÑONES, Dale Primary Care Provider Peggy Jackson [phone] Medications Medication SIG (Take, Route, Frequency, Duration) Notes Start Date End Date Status Custom Molded Shoes as directed Dx: Limb length deformity-Left leg shorter 09/02/2022 Not-Taking Tylenol PRN Not-Taking Advil 3x a day Active Enbrel 15m Active Vitamin D Active Encounters Encounter Location Date Provider Diagnosis [facility] [address] [place] [address] 07/25/2024 Peggy Parker Plan Of Treatment No Information Progress Notes * Louann BARRIENTOS KDOB:1950 (74 yo F)Acc No.[id number]:07/25/2024 Progress Note Patient:?SCARLETT Louann Vila Provider:?Peggy Parker DPM :1950???Age:74 Y???Sex:Female D ate:07/25/2024 Address:[address] [place], [place] [phone] Pcp:Dale Pinto MD Subjective: * Chief Complaints: * ??? * HPI: ???Painful Nails:?Pt States Last PCP Visit:?Date:?04/16/2024 * Medical History:? * Medications:?Taking Advil , Notes to Pharmacist: 3x a day, Taking Vitamin D , Taking Enbrel , Notes to Pharmacist: 15m, Not-Taking/PRN Tylenol , Notes to Pharmacist: PRN, Not-Taking/PRN Custom Molded Shoes 1 pair Custom Shoes and 3 Sets of Custom heat molded inserts as directed Dx: Limb length deformity-Left leg shorter Objective: * Vitals:? Assessment: Plan: * Treatment: * Images: * The named appointment provid er may or may not be the originator of this progress note, and it is not deemed complete until electronically signed by the appointment provider. Sign off status: Pending * Provider:?Peggy Parker DPM Date:? Generated for [place] north/Dominic/Juan Antonio on:?09/28/2024 02:18 PM EST History and Physical Notes * HPI (History of Present Illness) Category Sub-Category Detail Notes Category Not es Painful Nails Pt States Last PCP Visit: Date:: 04/16/2024
[2024-09-28 14:31] LABS: Appearance Urine Cloudy; Color Urine Dark Yellow; Glucose Urine UA Negative (Negative); Leukocyte Esterase Urine Small (1+) (Negative); Nitrite Urine Positive (Negative); Specific Gravity - Urine 1.025 (1.005-1.025); UMIC TRIGGER UACC YES; Urine Blood Negative (Negative); Urine Ketones 15 mg/dL (Negative); Urine Protein 100 (2+) mg/dL (Neg-Trace)
[2024-09-28 14:38] LABS: Alanine Aminotransferase < 6 U/L (0-31); Albumin Level 2.3 g/dL (3.5-5.0); Alkaline Phosphatase 79 U/L (39-117); Anion Gap 15 (12-20); Aspartate Amino Transferase 20 U/L (5-31); Bilirubin Total 0.4 mg/dL (0.0-1.0); Blood Urea Nitrogen 19 mg/dL (9-16); Calcium 7.6 mg/dL (8.4-10.2); Carbon Dioxide 26 mmol/L (22-29); Chloride 124 mmol/L (96-108); Creatinine Clr Calc Pharmacy 61.1; Estimated Glomerular Filt Rate > 60; Glucose Random 101 mg/dL (60-115); Magnesium 2.1 mg/dL (1.6-2.6); Potassium 3.2 mmol/L (3.3-5.1); Sodium 162 mmol/L (135-145); Total Protein 5.9 g/dL (6.5-8.0)
[2024-09-28 14:41] LABS: B Type Natriuretic Peptide 3879 pg/mL (<100)
[2024-09-28 14:43] LABS: Bacteria Urine None Seen (None Seen); Hyaline Casts Urine >20 /LPF (0-2); UACC Culture Trigger YES
[2024-09-28 14:46] LABS: Troponin-I High Sensitivity 728.3 ng/L (<3.5-17.0)
--- NOTE | 2024-09-28 15:05 | MHC.CM.PN ---
CM met with patient/family per PA request. HCP is son, John. Patient comes from LTC (private pay) @ [facility], where she has only been for approx 24 hrs after recent admission to [facility] w/ HCP invocation and plan for LTC/ hospice. However, per son & PVR ASHLEY Yesenia, on arrival to [facility] patient passed BIMS , was deemed to have capacity, and declined hospice. Per family, patient mostly confused/agitated, but does have clear periods. However, per ASHLEY patient a+o, no confusion while at facility. Sons goal is for patient to return to [facility], where she is a bed hold. He prefers hospice, but if she is not agreeable will return as LTC. Patient to be admitted for tx PNA.
--- NOTE | 2024-09-28 16:05 | PHA.MEDREC ---
Addendum entered by Michael Rosen RPh 09/28/24 17:01: Med rec was reviewed by [facility]. Original Note: Pharmacy Consult ? Medication Reconciliation Pharmacy has completed the medication reconciliation. Utilized list from [facility] to confirm med list.
--- NOTE | 2024-09-28 16:19 | PC.NURSE ---
pt has some sutures to right shoulder - site clean, dry, intact. pt has significant edema to bilateral arms, at elbows, reports pain at these sites. family reports significant arthritis hx.
[2024-09-28 16:28] VITALS: PULSE 108; RESP 18; TEMP 37.7; O2SAT 97
[2024-09-28 20:31] VITALS: BP 116/56; PULSE 82; RESP 16; TEMP 36.7; O2SAT 95
--- NOTE | 2024-09-28 22:37 | PC.NURSE ---
This RN went to check on patient. patient wakes easily to vice. states just let me rest when asked if RN could check to see if needed to be changed. patient offered morphine for discomfort earlier but stated she is comfortable the way she is. RR even and unlabored, does not appear in any distress.
--- NOTE | 2024-09-29 01:01 | PC.NURSE ---
patient continues to decline dose of morphine. states she doesn't need pain meds. patient moved to hospital bed.
[2024-09-29 02:10] VITALS: BP 141/63; PULSE 91; RESP 16; TEMP 36.2; O2SAT 97
--- NOTE | 2024-09-29 03:17 | MHC.EDTECH ---
patient asks for sips of water regularly (Q15 minutes at least). Pt given water per request
[2024-09-29 03:53] VITALS: BP 122/55; PULSE 95; RESP 14; O2SAT 98
--- NOTE | 2024-09-29 04:05 | PC.NURSE ---
patient continues to decline morphine. RN attempted to encourage patient to take med for discomfort in buttocks. patient stated she would rather be repositioned. patient is asleep at this time.
[2024-09-29 08:00] VITALS: BP 140/68; PULSE 97; RESP 15; TEMP 36.7; O2SAT 98
[2024-09-29 09:26] VITALS: RESP 20
[2024-09-29] MEDS: Morphine Sulfate 2 MG/ML CARTRIDGE IVPUSH (09:26)
--- NOTE | 2024-09-29 11:36 | MHC.CM.ED ---
Addendum entered by Hiral Pang 09/29/24 15:26: [facility] is able to offer a bed. However, son has balance of 5 day bed hold to pay and they would need 30 days up front. John would need to provide $18,725. John agreeable. [facility] has been asked to reach out to John. Original Note: Patient remains in ER. Will not be admitted to the hospital. Will not return to [facility]. Referral made to [facility] at family's request. Continue to monitor for d/c needs.
[2024-09-29 15:37] VITALS: BP 130/54; PULSE 92; RESP 17; TEMP 36.7; O2SAT 96
[2024-09-29 19:58] VITALS: BP 130/60; PULSE 95; RESP 20; TEMP 36.4; O2SAT 99
--- NOTE | 2024-09-29 23:52 | PC.NURSE ---
Patient has been yelling out multiple times, requesting micro-adjustments repeatedly a little up, a little down, no, a little up, no a little down , etc. Patient requested water but refused because it was in a styrofoam cup. Patient states I'm allergic to styrofoam . Patient offered edward mick, which she accepted. Patient is unable to hold liquids in her mouth. Attempted to give edward mick with and without straw. Patient is demanding. Messaged provider regarding obtaining a swallow eval/speech consult. Patient is unable to use her hands at baseline with bilateral contracted posing of her arms. Patient also requested having her face washed with ice water soaked wash cloth , which was provided. Patient is alert & oriented at this time, but is requesting frequent adjustments and refusing offered care/interventions, but then requesting others and is inconsistent with requests. For example: the patient called asking for water. When water was given, patient then stated no, I need to be straightened out first . This RN & sail lay out worker (Sharita Huntley) began preparing to straighten out the patient and change linens, and then patient stated no I need to drink water first ! Then when water was offered, patient refused again requesting to be straightened first. This RN explained that both water will be provided, and linens will be changed, however, both cannot occur simultaneously. Patient then allowed linens to be changed, which were soaked with urine. Pillows placed under left side/tilt to alleviate pressure on sacrum, which has a wound dressing in place from earlier today (see previous RN notes). Patient then asked for approximately 50 adjustments and was repeatedly offered Morphine for discomfort, which she continues to refuse despite signs of discomfort (grimacing with movement), but states that my pain is fine . Doesn't want blankets covering her, and doesn't want hospital gown covering her knees. Requested that lights remain on. Patient requested that I make sure that she is still breathing in all positions. Respirations even/unlabored. Pulse oximeter reading 99%, heart rate 99 bpm. Skin pink warm & dry, normal for patient. Patient is talking in complete full sentences, no signs of respiratory distress. Given verbal reassurance. Provider (JAKE Roberson) notified about the patient's inability to swallow despite different methods, and overall demands throughout this shift so far. Recommended swallow/speech evaluation. Care ongoing by this RN.
[2024-09-30 00:13] VITALS: PULSE 99; RESP 20; O2SAT 100
--- NOTE | 2024-09-30 02:58 | PC.NURSE ---
enterprise mobility architect (Jayashree Hartmann) & Nursing Employee Relations Manager (Mendy Harmon) to bedside to speak with patient. Patient was unable to swallow water with the use of a straw. Patient refused assistance with holding head up (patient tilts head to the left at baseline), but was able to keep most fluids down with spoon fed water and sips of water.
--- NOTE | 2024-09-30 03:01 | PC.NURSE ---
t/w went to see pt and do a Nursing Swallow eval. Pt able to manage swallowing well but due to positioning had some difficulty with water coming out of her mouth. Pt was able to drink fluids with nurse assist. Pt refusing morphine for her pain and willing to take something else. made aware and will order oxycodone.
[2024-09-30] MEDS: oxyCODONE HCl Immed Release 5 MG TABLET PO (03:40)
--- NOTE | 2024-09-30 11:13 | MHC.SL.SWA ---
Speech Pathologist Impression: Risk of Aspiration Oral Phase Dysphagia Risk of Aspiration Due to: Reduced Cognition Dysphasia Diet Status: Downgrade from regular to NDD2 Liquid Consistency and Strategies for Safe Swallow: Liquid Intake Recommendation: Thin Liquid Intake Strategies: Small Sips Liquids by Teaspoon Only Solid Food Consistency: Dietary Recommendations: Grnd/Mech Altered (NDD2) Additional Modifications to Solid Foods: Recommend start on GROUND/MECH ALTERED (NDD2) diet and THIN liquids via straw or teaspoon, pills CRUSHED in PUREE. Patient will need 1:1 assistance feeding: food to be well moistened with sauces/gravies, administer small bites, alternate with sips of liquid for clearance, check oral cavity for clearance before giving more bites. Patient w/ frequent refusal of PO, presenting w/ concern for FTT, may benefit from encouragement and smaller, more frequent meals throughout the day. Oral Medication Intake: Crushed with Puree Please contact the pharmacy regarding appropriate crushable or liquid drug formulations that are available whenever modified delivery is recommended. Compensatory Strategies and Precautions to be Taken for Safe Swallow: Sitting Upright (90 deg) Liquids from Straw Liquids from Spoon Small Bites and Sips Alternate Liquids/Solids Rate of Ingestion Change Avoid Specific Foods Supervision While Eating and Drinking for Safe Swallow: Total Assistance (1:1) Foods to Avoid: [place] hard or dry, crumbly foods Swallowing Recommended Treatments: Compens. Strategy Educat. Recommendation for Speech: Inpatient Speech Therapy Comment: VIRTUALIZATION ENGINEER to f/u 1-2x Frequency/Duration: 1-2 f/u Date Range for Service Req: Timeline to reassess: PRN Ad Setter Clinican/Clinical Fellow: No Supervisory Statement: I have reviewed and agree with the student/clinical fellow's documentation: N/A Speech Language Pathologist: Cynthia Matthews M.A., CCC-VIRTUALIZATION ENGINEER
--- NOTE | 2024-09-30 11:15 | MHC.CM.ED ---
Patient remains in ER overflow. Received notification from Kaleb Anderson that son will bring check to facility today. Anticipate BLS transport will be arranged after that. Continue to monitor for d/c needs.
--- NOTE | 2024-09-30 11:46 | MHC.CM.ED ---
Received notification from Kaleb Anderson that patient can d/c today. Check has been obtained from family. [facility] booked for 1pm. Patient, son Pedrito Lopez RN and Milady JOSEPH aware. Continue to monitor for d/c needs.
--- NOTE | 2024-09-30 11:48 | PC.NURSE ---
facility contacted for report. informed.
[2024-09-30 12:06] VITALS: BP 130/60; PULSE 95; RESP 20; TEMP 36.6; O2SAT 98
[2024-09-30 12:28] VITALS: BP 139/61; PULSE 113; RESP 20; TEMP 36.3; O2SAT 96
== END 2024-09-30 12:58 | disposition skilled nursing facility (03) ==
PROVIDERS: Physician Assistant Medical; Emergency Provider Emergency Medicine; PCP Family Medicine
DX: J18.9 Pneumonia, unspecified organism (principal); I50.9 Heart failure, unspecified; A41.9 Sepsis, unspecified organism; N39.0 Urinary tract infection, site not specified; R00.0 Tachycardia, unspecified; M35.00 Sjogren syndrome, unspecified; L89.159 Pressure ulcer of sacral region, unspecified stage; G93.40 Encephalopathy, unspecified; R79.89 Other specified abnormal findings of blood chemistry; R62.7 Adult failure to thrive; R50.9 Fever, unspecified; R06.02 Shortness of breath; Z03.818 Encounter for observation for suspected exposure to other biological agents ruled out; Z68.1 Body mass index [BMI] 19.9 or less, adult; Z79.899 Other long term (current) drug therapy
CPT/HCPCS: 0241U; 36415; 51701; 71045; 80053; 81001; 83605; 83735; 83880; 84484; 85025; 87040; 87077; 87086; 87186; 87205; 93005; 96365; 96367; 96375; 99285; J0131; J0692; J2270; J3370

== ENCOUNTER → 2024-09-28 11:18 | Outpatient (BNV) | payer MEDICARE, SELFPAY | PROVIDERS: Emergency Provider Emergency Medicine; PCP Internal Medicine; Visit Provider Internal Medicine Cardiovascular Disease | DX: R00.0 Tachycardia, unspecified (principal) | CPT/HCPCS: 93010 ==

== ENCOUNTER → 2024-09-28 11:25 | Outpatient (BNV) | payer MEDICARE, SELFPAY | PROVIDERS: Emergency Provider Emergency Medicine; PCP Internal Medicine; Visit Provider Radiology Diagnostic Radiology | DX: I51.7 Cardiomegaly (principal) | CPT/HCPCS: 71045 ==

== ENCOUNTER 2024-10-01 06:17 | Outpatient (REF) | payer MEDICARE, SELFPAY ==
[2024-10-01 06:02] LABS: MANUAL DIFF FLAG NO
--- OUTSIDE RECORDS SUMMARY | 2024-10-01 06:22 | XMS_ITS | Clinical Summary ---
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 30 tablet 09/27/2024 Active LORazepam (ATIVAN) 0.5 mg tablet Take 1 tablet (0.5 mg total) by mouth every 6 (six) hours if needed for anxiety for up to 3 days. Hospice patient Max Daily Amount: 2 mg 12 each 09/27/2024 Active LACTOBACILLUS ACIDOPHILUS ORAL Take 3 capsules by mouth daily. 08/03/2024 5 Discontinued (Stop Taking at Discharge) acetaminophen (TYLENOL) 325 mg tablet Take 3 tablets (975 mg total) by mouth every 8 hours. 11/19/2022 5 Discontinued (Stop Taking at Discharge) ascorbic acid, vitamin C, 500 mg capsule Take 1 capsule by mouth daily. 08/03/2024 5 Discontinued (Stop Taking at Discharge) aspirin 81 mg EC tablet Take 1 tablet (81 mg total) by mouth 1 (one) time each day. 11/19/2022 5 Discontinued (Stop Taking at Discharge) atorvastatin (LIPITOR) 80 mg tablet Take 1 tablet (80 mg total) by mouth 1 (one) time each day. 08/15/2024 5 Discontinued (Stop Taking at Discharge) carvediloL (COREG) 3.125 mg tablet Take 1 tablet (3.125 mg total) by mouth 2 (two) times a day with meals. 08/14/2024 5 Discontinued (Stop Taking at Discharge) dapagliflozin propanediol (FARXIGA) 10 mg tablet Take 1 tablet (10 mg total) by mouth 1 (one) time each day. 08/15/2024 5 Discontinued (Stop Taking at Discharge) furosemide (LASIX) 20 mg tablet Take 1 tablet (20 mg total) by mouth 1 (one) time each day. 08/15/2024 5 Discontinued (Stop Taking at Discharge) spironolactone (ALDACTONE) 25 mg tablet Take 1 tablet (25 mg total) by mouth 1 (one) time each day. 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 Max Daily Amount: 30 mg 15 mL 09/27/2024 5 Active Problems Patient Care Coordination No te Formatting of this note migh t be different from the original. [facility] w Hospice once Private Pay funds settled. Problem Noted Date Diagnosed Date Septic arthritis 09/17/2024 Arthritis of right shoulder due to other bacteri a 09/17/2024 HFrEF (heart failure with reduced ejection fract ion) 08/11/2024 NSTEMI (non-ST elevated myocardial infarction) 1 10/10/2023 Encounters Date Type Department Care Team Description 09/19/2024 9:35 AM EST Anesthesia Event [facility] OR [address] [place] [phone] Hans Rivera DO 09/19/2024 9:30 AM EST - 09/19/2024 11:00 AM EST Surgery [facility] OR [address] [place] [address] [phone] Henri Mcdowell MD ARTHROSCOPY SHOULDER WASHOUT 09/17/2024 3:44 PM EST - 09/27/2024 9:10 AM EST Hospital Encounter [facility] [address] [place] [phone] Rich Varner MD Bukalo, Nermina, MD Rasul, Yar M, MD Japaridze, Anna, MD 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 ([facility]) (Primary Dx); Bacteremia; Pyogenic arthritis of right shoulder region, due to unspecified organism ([facility]); Septic arthritis ([facility]); Shoulder effusion, right; HFrEF (heart failure with reduced ejection fraction) ([facility]) Discharge Disposition: Hospice/Medical Facility 08/13/2024 Telephone [facility] [address] [facility] [address] [place] [phone] [place] Other (Add RFV) (Call from pt) 08/08/2024 9:55 PM EST - 08/14/2024 2:05 PM EST Hospital Encounter [facility] [address] [place] [phone] Sujata Peterson MD Jones, Christopher, MD Zipagan, James T, MD Mohani, Priya, MD Acute respiratory failure with hypoxia ([facility]) (Primary Dx); Acute on chronic congestive heart failure, unspecified heart failure type (CMS/HCC); Acute on chronic anemia; NSTEMI (non-ST elevated myocardial infarction) ([facility]) Discharge Disposition: Retirement Facility 07/24/2024 Lab Requisition [facility] [address] [place] [phone] Rey Escalante MD Elevated white blood cell count, unspecified 07/24/2024 Lab Requisition [facility] [address] [place] [phone] Rey Escalante MD Acute respiratory failure with hypoxia ([facility]) 07/24/2024 Lab Requisition [facility] [address] [place] [phone] Rey Escalante MD Acute respiratory failure with hypoxia ([facility]) 07/23/2024 Lab Requisition [facility] [address] [place] [phone] Rey Escalante MD Acute respiratory failure with hypoxia ([facility]) 07/21/2024 Lab Requisition [facility] [address] [place] [phone] Rey Escalante MD Dysuria 07/20/2024 Lab Requisition [facility] [address] [place] [phone] Rey Escalante MD Allergic rhinitis due to pollen; Other abnormal findings on microbiological examination of urine; Acute respiratory failure with hypoxia ([facility]) 07/20/2024 Lab Requisition [facility] [address] [place] [phone] Rey Escalante MD Acute respiratory failure with hypoxia ([facility]) 07/19/2024 Lab Requisition [facility] [address] [place] [phone] Rey Escalante MD Acute respiratory failure with hypoxia ([facility]/HCC) 07/18/2024 Lab Requisition [facility] [address] [place] [phone] Rey Escalante MD Acute respiratory failure with hypoxia ([facility]/HCC) 07/17/2024 Lab Requisition [facility] [address] [place] [phone] Rey Escalante MD Chronic respiratory failure, unspecified whether with hypoxia or hypercapnia ([facility]/HCC) 07/16/2024 Lab Requisition [facility] [address] [place] [phone] Rey Escalante MD Acute respiratory failure with hypoxia ([facility]/HCC) 07/12/2024 Lab Requisition [facility] [address] [place] [phone] Rey Escalante MD Acute respiratory failure with hypoxia ([facility]/HCC) 07/11/2024 Lab Requisition [facility] [address] [place] [phone] Rey Escalante MD Other buttermaker continuous churn (current) drug therapy; Anemia, unspecified; Acute respiratory failure with hypoxia ([facility]/HCC) 07/11/2024 Lab Requisition [facility] [address] [place] [phone] Rey Escalante MD Urinary tract infection, site not specified 07/09/2024 Lab Requisition [facility] [address] [place] [phone] Rey Escalante MD Acute respiratory failure with hypoxia ([facility]/HCC) 06/26/2024 9:36 PM EDT - 07/02/2024 3:07 PM EDT [facility] Unit [address] [place] [phone] Castillo, MD Jag Guzman Vikram, MD Rasul, Yar M, MD Alam, Aroosa, MD Lobar pneumonia, unspecified organism ([facility]) Discharge Disposition: Retirement Facility from Last 3 Months Surgical History Surgery Date Site/Laterality Comments TOTAL HIP ARTHROPLASTY Right PROCEDURE:TOTAL HIP ARTHROPLASTY LEG SURGERY 11/16/2022 Left PROCEDURE:LEG SURGERY;COMMENT:Procedure: I&D LEFT LOWER EXTREMITY; Surgeon: Robbie Villagran MD; Location: [facility] MAIN OPERATING ROOM; Service: Orthopedic Trauma; Laterality: Left; OTHER SURGICAL HISTORY 10/16/2022 Left PROCEDURE:ORIF FEMORAL SHAFT FRACTURE W/ PLATES AND SCREWS;COMMENT:Procedure: REPAIR NONUNION LEFT FEMUR/ORIF LEFT FEMUR; Surgeon: Robbie Villagran MD; Location: [facility] MAIN OPERATING ROOM; Service: Orthopedic Trauma; Laterality: Left; Medical History Medical History Date Comments Rheumatoid arthritis (CMS/HCC) D X:Rheumatoid arthritis (HCC) Sicca (CMS/HCC) DX:Sicca (HCC) Raynaud disease DX:Raynaud disea se Social History [...] 1-dose 75+ series) 2023 COVID-19 Vaccine ( - season) 2024 07/01/2022, 07/02/2021, 12/15/2020, Additional [...] this topic Medical Devices Implanted Type 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 813849-362848 - [id number] Implanted:Qty: 1 on 10/16/2022 by Robbie Villagran MD Left: Femur MUSCULOSKELETAL TRANSPLANT FND 04/02/2025 [id number] / [id number] / Screw Slftp Lk Va T15 [...] / Screw Cortex 4.5x36mm Self Tap Jnj-Synt [id number] Implanted:Qty: 1 on 10/16/2022 by Robbie Villagran MD Left: Femur JNJ DEPUY SYNTHES 214.836 / / Bone Chip Canc 30ml Inhs Nprtr Allograft Tissue Freeze Dried [facility] 031330-080435 - [id number] Implanted:Qty: 1 on 10/16/2022 by Robbie Villagran MD Left: Femur MUSCULOSKELETAL TRANSPLANT FND 03/03/2025 [id number] / [id number] / Bone Chip Canc 30ml Inhs Nprtr Allograft Tissue Freeze Dried [facility] 665693-115183 - [id number] Implanted:Qty: 1 on 10/16/2022 by Robbie Villagran MD Left: Femur MUSCULOSKELETAL TRANSPLANT FND 02/10/2025 [id number] / [id number] / Bone Chip Canc 30ml Inhs Nprtr Allograft Tissue Freeze Dried [facility] 260289-265415 - [id number] Implanted:Qty: 1 on 10/16/2022 by Robbie Villagran MD Left: Femur MUSCULOSKELETAL TRANSPLANT FND 04/02/2025 [id number] / [id number] / Bone Filler Bio4 Matrix 10ml Stry-Obio [id number] 55 - [id number] Implanted:Qty: 1 on 10/16/2022 by Robbie Villagran MD Left: Femur [employer] 03/30/2024 [id number] / [id number] / [id number] 3.5/4.5mm Va-Lcp Ppfx Proximal Femur Plates Left 7 Hole 216mm Implanted:Qty: 1 on 10/16/2022 by Robbie Villagran MD Left: Femur JNJ DEPUY SYNTHES 221.113 / / 3.5mm Va Locking Ppfx Greater Troch Ring Left Small Implanted:Qty: 1 on 10/16/2022 by Robbie Villagran MD Left: Femur JNJ DEPUY SYNTHES 221.101 / / Screw Slftp Lk Va T15 [...] / / Kit Stimulan Rapd Cure 10ml [facility] [id number] Implanted:Qty: 1 on 11/16/2022 by Robbie Villagran MD Left: Hip [employer] 06/04/2025 620-010 / / [id number] Procedures Procedure Name Priority Date/Time Associated Diagnosis [...] of right shoulder due to other bacteria ([facility]/HCC) Bacteremia Pyogenic arthritis of right shoulder region, due to unspecified organism ([facility]) Septic arthritis (CMS/[facility]) CT CHEST/ABDOMEN/PELVIS W CONTRAST STAT 09/18/2024 11:35 [...] AND DIFFERENTIAL STAT 08/08/2024 10:16 PM EST IN CRITICAL CARE 30-74 MINUTES Routine 08/08/2024 9:45 [...] Acute respiratory failure with hypoxia (CMS/HCC) Other assisted (current) drug therapy FOLATE Routine 07/11/2024 7:03 AM EST Anemia, unspecified Acute respiratory failure with hypoxia (CMS/HCC) Other buttermaker continuous churn (current) drug therapy VITAMIN B12 Routine 07/11/2024 7:03 AM EST Anemia, unspecified Acute respiratory failure with hypoxia (CMS/HCC) Other buttermaker continuous churn (current) drug therapy IRON AND TIBC Routine 07/11/2024 7:03 AM EST Anemia, unspecified Acute respiratory failure with hypoxia (CMS/HCC) Other assisted (current) drug therapy FERRITIN Routine 07/11/2024 7:03 AM EST Anemia, unspecified Acute respiratory failure with hypoxia (CMS/HCC) Other assisted (current) drug therapy CBC AND DIFFERENTIAL Routine 07/11/2024 7:03 AM EST Anemia, unspecified Acute respiratory failure with hypoxia (CMS/HCC) Other assisted (current) drug therapy URINALYSIS WITH REFLEX MICROSCOPIC [...] EST Acute respiratory failure with hypoxia (CMS/HCC) from Last 3 Months Results * (ABNORMAL) C-reactive protein (09/24/2024 7:45 AM EST) Only the most recent of7 resultswithin the time period is included. [facility] C-Reactive Protein 3.62(H) <=0.50 mg/dL LAB CHEMISTRY METHOD 09/24/2024 8:43 AM EST [facility] Blood Venous blood specimen / Unknown Venipuncture / Unknown 09/24/2024 7:45 AM EST 09/24/2024 8:10 AM EST Freya JOSEPH LAB BLOOD ORDERABLES [facility] [address] [place] [address], * (ABNORMAL) POCT Glucose, blood (09/23/2024 11:09 AM EST) Only the most recent of16 resultswithin the time period is included. [facility] Glucose POCT 126(H) 70 - 100 mg/dL 09/23/2024 11:11 AM EST [facility] Blood Capillary blood specimen / Unknown 09/23/2024 11:09 AM EST 09/23/2024 11:12 AM EST Bernardo Alcantara MD LAB POINT OF CARE TE ST DOCKED DEVICE UNSOLICITED RESULTS [facility] [address] [place] [address], [place] [phone] * (ABNORMAL) CBC auto differential (09/23/2024 5:30 AM EST) Only the most recent of20 resultswithin the time period is included. WBC 15.9(H) 4.8 - 10.8 K/mcL LAB HEMETOLOGY METHOD 09/23/2024 6:48 AM EST [facility] RBC 3.70(L) 3.80 - 4.80 M/mcL LAB HEMETOLOGY METHOD 09/23/2024 6:48 AM [facility] Hemoglobin 8.3(L) 11.5 - 16.0 g/dL LAB HEMETOLOGY METHOD 09/23/2024 6:48 AM [facility] Hematocrit 28.0(L) 35.0 - 47.0 % LAB HEMETOLOGY METHOD 09/23/2024 6:48 AM [facility] MCV 75.1(L) 79.0 - 98.0 FL LAB HEMETOLOGY METHOD 09/23/2024 6:48 AM [facility] MCH 22.3(L) 27.0 - 32.0 pcg LAB HEMETOLOGY METHOD 09/23/2024 6:48 AM [facility] MCHC 29.6(L) 32.0 - 37.0 g/dL LAB HEMETOLOGY METHOD 09/23/2024 6:48 AM [facility] RDW 22.1(H) 11.0 - 15.0 % LAB HEMETOLOGY METHOD 09/23/2024 6:48 AM [facility] Platelets 652(H) 130 - 400 K/mcL LAB HEMETOLOGY METHOD 09/23/2024 6:48 AM [facility] MPV 9.4 7.0 - 11.0 FL LAB HEMETOLOGY METHOD 09/23/2024 6:48 AM [facility] NRBC 0.0 <1.0 % LAB HEMETOLOGY METHOD 09/23/2024 6:48 AM [facility] NRBC Absolute 0.00 <0.10 K/[facility] LAB HEMETOLOGY METHOD 09/23/2024 6:48 AM [facility] Neutrophils Relative 84.7 % LAB HEMETOLOGY METHOD 09/23/2024 6:48 AM [facility] Lymphocytes Relative 7.5 % LAB HEMETOLOGY METHOD 09/23/2024 6:48 AM [facility] Monocytes Relative 6.5 % LAB HEMETOLOGY METHOD 09/23/2024 6:48 AM [facility] Eosinophils Relative 0.0 % LAB HEMETOLOGY METHOD 09/23/2024 6:48 AM [facility] Basophils Relative 0.2 % LAB HEMETOLOGY METHOD 09/23/2024 6:48 AM [facility] Immature Granulocytes Relative 1.1 % LAB HEMETOLOGY METHOD 09/23/2024 6:48 AM [facility] Neutrophils Absolute 13.49(H) 1.50 - 7.00 K/[facility] LAB HEMETOLOGY METHOD 09/23/2024 6:48 AM [facility] Lymphocytes Absolute 1.20 1.00 - 5.00 K/[facility] LAB HEMETOLOGY METHOD 09/23/2024 6:48 AM [facility] Monocytes Absolute 1.04(H) 0.20 - 1.00 K/[facility] LAB HEMETOLOGY METHOD 09/23/2024 6:48 AM [facility] Eosinophils Absolute 0.00 0.00 - 0.50 K/[facility] LAB HEMETOLOGY METHOD 09/23/2024 6:48 AM EST [facility] Basophils Absolute 0.03 0.00 - 0.20 K/[facility] LAB HEMETOLOGY METHOD 09/23/2024 6:48 AM EST [facility] Immature Granulocytes Absolute 0.17(H) 0.00 - 0.03 K/[facility] LAB HEMETOLOGY METHOD 09/23/2024 6:48 AM EST [facility] Blood Venous blood specimen / Unknown Venipuncture / Unknown 09/23/2024 5:30 AM EST 09/23/2024 6:32 AM EST Abran JOSEPH LAB BLOOD ORDERAB LES [facility] [address] [place] [address], * (ABNORMAL) Basic metabolic panel (09/23/2024 5:30 AM EST) Only the most recent of11 resultswithin the time period is included. Sodium 143 133 - 145 mmol/L LAB CHEMISTRY METHOD 09/23/2024 7:38 AM [facility] Potassium 3.8 3.5 - 5.5 mmol/L LAB CHEMISTRY METHOD 09/23/2024 7:38 AM [facility] Chloride 109 96 - 110 mmol/L LAB CHEMISTRY METHOD 09/23/2024 7:38 AM [facility] CO2 25 21 - 32 mmol/L LAB CHEMISTRY METHOD 09/23/2024 7:38 AM [facility] Anion Gap 9 3 - 11 LAB CHEMISTRY METHOD 09/23/2024 7:38 AM [facility] Glucose 114(H) 70 - 100 mg/dL LAB CHEMISTRY METHOD 09/23/2024 7:38 AM [facility] BUN 10 5 - 25 mg/dL LAB CHEMISTRY METHOD 09/23/2024 7:38 AM EST [facility] Creatinine 0.36(L) 0.50 - 1.10 mg/dL LAB CHEMISTRY METHOD 09/23/2024 7:38 AM [facility] eGFR 105 >=60 mL/min/1. 73m2 LAB CHEMISTRY METHOD 09/23/2024 7:38 AM [facility] Comment:Calculation based on the??Chronic Kidney Disease Epidemiology Collaboration (CKD-EPI) equation refit??without adjustment for race. BUN/Creatinine Ratio 27.8 LAB CHEMISTRY METHOD 09/23/2024 7:38 AM [facility] Calcium 8.5 8.5 - 10.5 mg/dL LAB CHEMISTRY METHOD 09/23/2024 7:38 AM [facility] Blood Venous blood specimen / Unknown Venipuncture / Unknown 09/23/2024 5:30 AM EST 09/23/2024 6:32 AM EST Abran JOSEPH LAB BLOOD ORDERAB LES [facility] [address] [place] [address], * (ABNORMAL) CBC - Every 3 Days (09/22/2024 5:59 AM EST) Only the most recent of3 resultswithin the time period is included. WBC 13.0(H) 4.8 - 10.8 K/mcL LAB HEMETOLOGY METHOD 09/22/2024 7:21 AM [facility] RBC 3.50(L) 3.80 - 4.80 M/mcL LAB HEMETOLOGY METHOD 09/22/2024 7:21 AM [facility] Hemoglobin 7.8(L) 11.5 - 16.0 g/dL LAB HEMETOLOGY METHOD 09/22/2024 7:21 AM [facility] Hematocrit 25.7(L) 35.0 - 47.0 % LAB HEMETOLOGY METHOD 09/22/2024 7:21 AM EST [facility] MCV 73.0(L) 79.0 - 98.0 FL LAB HEMETOLOGY METHOD 09/22/2024 7:21 AM [facility] MCH 22.2(L) 27.0 - 32.0 pcg LAB HEMETOLOGY METHOD 09/22/2024 7:21 AM EST [facility] MCHC 30.4(L) 32.0 - 37.0 g/dL LAB HEMETOLOGY METHOD 09/22/2024 7:21 AM [facility] RDW 21.6(H) 11.0 - 15.0 % LAB HEMETOLOGY METHOD 09/22/2024 7:21 AM [facility] Platelets 595(H) 130 - 400 K/mcL LAB HEMETOLOGY METHOD 09/22/2024 7:21 AM EST [facility] MPV 9.3 7.0 - 11.0 FL LAB HEMETOLOGY METHOD 09/22/2024 7:21 AM EST [facility] NRBC 0.0 <1.0 % LAB HEMETOLOGY METHOD 09/22/2024 7:21 AM [facility] NRBC Absolute 0.00 <0.10 K/mcL LAB HEMETOLOGY METHOD 09/22/2024 7:21 AM EST [facility] Blood Venous blood specimen / Unknown Venipuncture / Unknown 09/22/2024 5:59 AM EST 09/22/2024 7:03 AM EST Abran JOSEPH LAB BLOOD ORDERAB LES [facility] [address] [place] [address], * ECG 12 lead (09/21/2024 10:37 AM EST) Only the most recent of4 resultswithin the time period is included. Ventricular Rate ECG 88 BPM GEMUSE Atrial Rate 88 BPM GEMUSE P-R Interval 146 ms GEMUSE QRS Duration 92 ms GEMUSE Q-T Interval 380 ms GEMUSE QTc 459 ms GEMUSE P Wave [place] 40 degrees GEMUSE R [place] 1 degrees GEMUSE T [place] 37 degrees GEMUSE ECG Interpretation Sinus rhythm Premature atrial complexes and ??with occasional Premature ventricular complexes Possible Left atrial enlargement Left ventricular hypertrophy Abnormal ECG When compared with ECG of 18-SEP-2024 02:31, Premature ventricular complexes are now Present Confirmed by HARRIS AVILES ([id number]) on 09/21/2024 5:30:23 PM GEMUSE 09/21/2024 10:3 7 AM EST 09/21/2024 5:30 PM EST Abran JOSEPH ECG ORDERABLES GEMUSE * MR Thoracic Spine wo Contrast [...] Signed Date: 09/21/2024 08:47 ET Workstation ID: [id number] Transcribed By: Self Edit Transcribed Date: 09/21/2024 [...] Signed Date: 09/21/2024 08:47 ET Workstation ID: [id number] Transcribed By: Self Edit Transcribed Date: 09/21/2024 08:27 ET Abran JOSEPH IMG MRI PROCEDURE S * (ABNORMAL) RBC morphology review (09/20/2024 8:38 AM EST) Rbc Morphology See comment( A) Consistent with indices, Normal for LAB HEMETOLOGY METHOD 09/20/2024 10:07 AM EST [facility] Comment:RBC: Morphology agre es with CBC Platelet Morphology - WAM See Note(A) Normal LAB HEMETOLOGY METHOD 09/20/2024 10:07 AM EST [facility] Comment:PLT: Normal Blood Venous blood specimen / Unknown Venipuncture / Unknown 09/20/2024 8:38 AM EST 09/20/2024 9:05 AM EST Abran JOSEPH LAB BLOOD ORDERAB LES [facility] [address] [place] [address], * (ABNORMAL) Sedimentation rate (09/20/2024 8:38 AM EST) Only the most recent of5 resultswithin the time period is included. Sed Rate 121(H) 0 - 30 mm/hr LAB HEMETOLOGY METHOD 09/20/2024 9:31 AM EST [facility] Blood Venous blood specimen / Unknown Venipuncture / Unknown 09/20/2024 8:38 AM EST 09/20/2024 9:05 AM EST Emiliano JOSEPH LAB BLOOD ORDERABLE S Performing Organization Address [facility]/ZIP Co de Phone Number [facility] [address] [place] [address], [place] [phone] * Culture blood (09/19/2024 4:34 PM EST) Only the most recent of8 resultswithin the time period is included. Culture, Blood No growth at 5 days LAB MICROBIOLOGY METHOD 09/24/2024 5:01 PM EST [facility] Blood Specimen from bone marrow obtained by aspiration / Unknown Venipuncture / Unknown 09/19/2024 4:34 PM EST 09/19/2024 4:41 PM EST Abran JOSEPH LAB MICROBIOLOGY - GENERAL ORDERABLES Performing Organization Address [facility]/ZIP Co de Phone Number [facility] [address] [place] [address], [place] [phone] * (ABNORMAL) Culture body fluid with gram stain (09/19/2024 10:31 AM EST) Only the most recent of2 resultswithin the time period is included. Fluid Culture Methicillin-Sensiti ve Staphylococcus aureus(A) SANDRA 09/23/2024 10:05 AM EST [facility] Comment: The organism value for this result has been updated. These results have been appended to the previously preliminary verified report. Edited result: Previously reported as Staphylococcus aureus on 09/20/2024 at 1312 EST. Gram Stain Result No epithelial cells seen(A) 09/23/2024 10:05 AM EST [facility] Gram Stain Result Many Polymorphonuclear leukocytes(A) 09/23/2024 10:05 AM EST [facility] Gram Stain Result Few Gram positive cocci in clusters(A) 09/23/2024 10:05 AM EST [facility] Synovial Fluid Structure of [...] Mcdowell MD LAB MICROBIOLOGY - GENERAL ORDERABLES [facility] [address] [place] [address], * TH AN ENDOTRACHEAL(NO CHARGE) (09/19/2024 9:48 AM EST) Narrative Charles Mclean CRNA - 09/19/2024 9:48 AM EST Charles Mclean CRNA ? 09/19/2024 ??9:48 AM General Information and Staff Patient location during procedure: OR Performed by: Charles Mclean CRNA Authorized by: Hans Rivera, DO ?? Intubation Airway not difficult Urgency: [...] resultswithin the time period is included. Pathologist [facility] Magnesium 1.8(L) 1.9 - 2.6 mg/dL LAB CHEMISTRY METHOD 09/19/2024 7:36 AM [facility] Blood Venous blood specimen / Unknown Venipuncture / Unknown 09/19/2024 5:46 AM EST 09/19/2024 6:51 AM EST Abran JOSEPH LAB BLOOD ORDERAB LES [facility] [address] [place] [address], * (ABNORMAL) Comprehensive metabolic panel (09/19/2024 5:46 AM EST) Only the most recent of7 resultswithin the time period is included. Pathologist [facility] Sodium 137 133 - 145 mmol/L LAB CHEMISTRY METHOD 09/19/2024 7:38 AM [facility] Potassium 3.9 3.5 - 5.5 mmol/L LAB CHEMISTRY METHOD 09/19/2024 7:38 AM [facility] Chloride 102 96 - 110 mmol/L LAB CHEMISTRY METHOD 09/19/2024 7:38 AM [facility] CO2 23 21 - 32 mmol/L LAB CHEMISTRY METHOD 09/19/2024 7:38 AM [facility] Anion Gap 12(H) 3 - 11 LAB CHEMISTRY METHOD 09/19/2024 7:38 AM [facility] Glucose 64(L) 70 - 100 mg/dL LAB CHEMISTRY METHOD 09/19/2024 7:38 AM [facility] BUN 12 5 - 25 mg/dL LAB CHEMISTRY METHOD 09/19/2024 7:38 AM [facility] Creatinine <0.15(L) 0.50 - 1.10 mg/dL LAB CHEMISTRY METHOD 09/19/2024 7:38 AM [facility] eGFR LAB CHEMISTRY METHOD 09/19/2024 7:38 AM [facility] Comment:Creatinine above or below reportable range; unable to calculate eGFR. BUN/Creatinine Ratio LAB CHEMISTRY METHOD 09/19/2024 7:38 AM [facility] Comment:Creatinine and/or Ur ea Nitrogen (BUN) above or below reportable range; unable to calculate BUN/Creatinine Ratio. Calcium 7.9(L) 8.5 - 10.5 mg/dL LAB CHEMISTRY METHOD 09/19/2024 7:38 AM [facility] AST (SGOT) 27 10 - 42 unit/L LAB CHEMISTRY METHOD 09/19/2024 7:38 AM [facility] ALT (SGPT) <6(L) 10 - 60 unit/L LAB CHEMISTRY METHOD 09/19/2024 7:38 AM [facility] Alkaline Phosphatase 100 42 - 121 unit/L LAB CHEMISTRY METHOD 09/19/2024 7:38 AM [facility] Total Protein 5.5(L) 6.0 - 8.0 g/dL LAB CHEMISTRY METHOD 09/19/2024 7:38 AM [facility] Albumin 1.5(L) 3.2 - 5.0 g/dL LAB CHEMISTRY METHOD 09/19/2024 7:38 AM EST [facility] Total Bilirubin 0.3 0.0 - 1.4 mg/dL LAB CHEMISTRY METHOD 09/19/2024 7:38 AM EST [facility] Blood Venous blood specimen / Unknown Venipuncture / Unknown 09/19/2024 5:46 AM EST 09/19/2024 6:51 AM EST Abran JOSEPH LAB BLOOD ORDERAB LES [facility] [address] [place] [address], * (ABNORMAL) TRANSTHORACIC ECHOCARDIOGRAM (TTE) COMPLETE W/ [...] 44 mL CV PACS Left Atrium Minor [place] 5.1 cm CV PACS Left Atrium Major [place] 4.2 cm CV PACS LA Area Sys [...] Gradient 89 mmHg CV PACS MV Deceleration Winston 4.1 m/s2 CV PACS E Wave Deceleration [...] Signed Date: 09/19/2024 14:55 ET Workstation ID: [id number] Transcribed By: Self Edit Transcribed Date: 09/18/2024 13:09 ET Resident/PA/IRRIGATION SERVICE TECHNICIAN: Rosaura Quintanilla Procedure Note Summer Sepulveda MD [...] Signed Date: 09/19/2024 14:55 ET Workstation ID: [id number] Transcribed By: Self Edit Transcribed Date: 09/18/2024 13:09 ET Resident/PA/IRRIGATION SERVICE TECHNICIAN: Rosaura Quintanilla Rosaura JOSEPH IMG US PROCEDURES [...] Signed Date: 09/18/2024 11:58 ET Workstation ID: [id number] Transcribed By: Self Edit Transcribed Date: 09/18/2024 [...] Signed Date: 09/18/2024 11:58 ET Workstation ID: [id number] Transcribed By: Self Edit Transcribed Date: 09/18/2024 11:52 ET Abran JOSEPH Tod CT PROCEDURES * (ABNORMAL) Troponin I high sensitivity (09/18/2024 2:59 AM EST) Only the most recent of3 resultswithin the time period is included. High Sensitivity Troponin I 72(H) <=54 ng/L LAB CHEMISTRY METHOD 09/18/2024 3:49 AM EST [facility] Blood Venous blood specimen / Unknown Venipuncture / Unknown 09/18/2024 2:59 AM EST 09/18/2024 3:06 AM EST Narrative [facility] - 09/18/2024 3:49 AM EST High levels of biotin in samples may falsely decrease hsTroponin values. ??Use caution when interpreting hsTroponin results in patients taking biotin who exhibit renal impairment (eGFR <60) or in patients taking more than 20 mg/day of biotin. Katty JOSEPH LAB BLOOD ORDER [facility] [address] [place] [address], * XR Chest 1 View (09/17/2024 11:18 [...] Signed Date: 09/18/2024 08:25 ET Workstation ID: [id number] Transcribed By: Self Edit Transcribed Date: 09/18/2024 [...] Signed Date: 09/18/2024 08:25 ET Workstation ID: [id number] Transcribed By: Self Edit Transcribed Date: 09/18/2024 [...] pathogens molecular study (09/17/2024 4:35 PM EST) [facility] Staphylococcus aureus Detected (A) Not Detected LAB MICROBIOLOGY METHOD 09/18/2024 7:17 AM EST [facility] Blood Venous blood specimen / Unknown Venipuncture / Unknown 09/17/2024 4:35 PM EST 09/17/2024 4:46 PM EST Silvestre Kerr DO LAB MICROBIOLOGY - G ENERAL ORDERABLES Performing Organization Address City/[facility]/ZIP Co de Phone Number [facility] [address] [place] [address], [place] [phone] * Lactate (09/17/2024 4:35 PM EST) Only the most recent of2 resultswithin the time period is included. [facility] Lactate 1.4 0.4 - 2.0 mmol/L LAB CHEMISTRY METHOD 09/17/2024 5:13 PM EST [facility] Blood Venous blood specimen / Unknown Venipuncture / Unknown 09/17/2024 4:35 PM EST 09/17/2024 4:47 PM EST Silvestre Kerr DO LAB BLOOD ORDERABLES Performing Organization Address City/[facility]/ZIP Co de Phone Number [facility] [address] [place] [address], [place] [phone] * Respiratory virus panel molecular study (09/17/2024 4:06 PM EST) Only the most recent of2 resultswithin the time period is included. [facility] Adenovirus Detection by PCR Not Detected Not Detected LAB MICROBIOLOGY METHOD 09/17/2024 5:39 PM [facility] Influenza A PCR Not Detected Not Detected LAB MICROBIOLOGY METHOD 09/17/2024 5:39 PM [facility] Influenza B PCR Not Detected Not Detected LAB MICROBIOLOGY METHOD 09/17/2024 5:39 PM [facility] Coronavirus 229E Not Detected Not Detected LAB MICROBIOLOGY METHOD 09/17/2024 5:39 PM [facility] Coronavirus HKU1 Not Detected Not Detected LAB MICROBIOLOGY METHOD 09/17/2024 5:39 PM [facility] Coronavirus OC43 Not Detected Not Detected LAB MICROBIOLOGY METHOD 09/17/2024 5:39 PM [facility] Coronavirus NL63 Not Detected Not Detected LAB MICROBIOLOGY METHOD 09/17/2024 5:39 PM [facility] Parainfluenza Virus 1 Not Detected Not Detected LAB MICROBIOLOGY METHOD 09/17/2024 5:39 PM [facility] Parainfluenza Virus 2 Not Detected Not Detected LAB MICROBIOLOGY METHOD 09/17/2024 5:39 PM [facility] Parainfluenza Virus 3 Not Detected Not Detected LAB MICROBIOLOGY METHOD 09/17/2024 5:39 PM [facility] Parainfluenza Virus 4 Not Detected Not Detected LAB MICROBIOLOGY METHOD 09/17/2024 5:39 PM [facility] RSV PCR Not Detected Not Detected LAB MICROBIOLOGY METHOD 09/17/2024 5:39 PM [facility] Human Metapneumovirus A and B Not Detected Not Detected LAB MICROBIOLOGY METHOD 09/17/2024 5:39 PM [facility] Rhinovirus/Entero virus Not Detected Not Detected LAB MICROBIOLOGY METHOD 09/17/2024 5:39 PM [facility] Bordetella pertussis Not Detected Not Detected LAB MICROBIOLOGY METHOD 09/17/2024 5:39 PM [facility] Bordetella parapertussis Not Detected Not Detected LAB MICROBIOLOGY METHOD 09/17/2024 5:39 PM [facility] Mycoplasma pneumo by PCR Not Detected Not Detected LAB MICROBIOLOGY METHOD 09/17/2024 5:39 PM [facility] Chlamydia pneumoniae Not Detected Not Detected LAB MICROBIOLOGY METHOD 09/17/2024 5:39 PM EST [facility] SARS COV-2 Not Detected Not Detected LAB MICROBIOLOGY METHOD 09/17/2024 5:39 PM EST [facility] Swab Both anterior nares / Unknown Non-blood Collection / Unknown 09/17/2024 4:06 PM EST 09/17/2024 4:36 PM EST Narrative [facility] - 09/17/2024 5:39 PM EST Testing was performed using the boo-box Respiratory Pathogen PCR Assay. All results must [...] DO LAB MICROBIOLOGY - G ENERAL ORDERABLES [facility] [address] [place] [address], * XR Chest 2 Views (08/13/2024 9:35 [...] Signed Date: 08/13/2024 10:08 ET Workstation ID: [id number] Transcribed By: Self Edit Transcribed Date: 08/13/2024 [...] Signed Date: 08/13/2024 10:08 ET Workstation ID: [id number] Transcribed By: Self Edit Transcribed Date: 08/13/2024 10:06 ET Rich Bal MD IMG XR PROCEDURES * (ABNORMAL) Anti-Xa - Every 6 Hours (08/12/2024 4:24 AM EST) Only the most recent of12 resultswithin the time period is included. Heparin Anti-Xa 0.04(L) 0.30 - 0.70 I Unit/mL LAB COAGULATION METHOD 08/12/2024 4:53 AM EST [facility] Blood Venous blood specimen / Unknown Venipuncture / Unknown 08/12/2024 4:24 AM EST 08/12/2024 4:29 AM EST [facility] - 08/12/2024 4:53 AM EST Therapeutic range listed is for Unfractionated Heparin. LMW Heparin therapeutic range: 0.50-1.20 IU/mL Henri Chowdary MD LAB BLOOD ORDERABLE S Performing Organization Address [facility]/ZIP Co de Phone Number [facility] [address] [place] [address], [place] [phone] * SST tube (08/11/2024 4:30 AM EST) Extra Tube Hold for add-ons. 08/11/2024 6:01 AM EST [facility] Comment:Auto resulted. Blood Venous blood specimen / Unknown 08/11/2024 4:30 AM EST 08/11/2024 4:35 AM EST Rich Bal MD LAB BLOOD ORDERABLES Performing Organization Address [facility]/ZIP Co de Phone Number [facility] [address] [place] [address], [place] [phone] * Lavender tube (08/11/2024 4:30 AM EST) Only the most recent of2 resultswithin the time period is included. Extra Tube Hold for add-ons. 08/11/2024 6:01 AM EST [facility] Comment:Auto resulted. Blood Venous blood specimen / Unknown 08/11/2024 4:30 AM EST 08/11/2024 4:35 AM EST Rich Bal MD LAB BLOOD ORDERABLES Performing Organization Address [facility]/ZIP Co de Phone Number [facility] [address] [place] [address], [place] [phone] * (ABNORMAL) Iron and TIBC (08/09/2024 10:41 AM EST) Only the most recent of3 resultswithin the time period is included. Iron 18(L) 40 - 150 mcg/dL LAB CHEMISTRY METHOD 08/09/2024 11:45 AM EST [facility] Comment:Lipemia present TIBC 277 250 - 450 mcg/dL LAB CHEMISTRY METHOD 08/09/2024 11:45 AM EST [facility] Iron Saturation 6(L) 15 - 50 % LAB CHEMISTRY METHOD 08/09/2024 11:45 AM EST [facility] Blood Venous blood specimen / Unknown Venipuncture / Unknown 08/09/2024 10:41 AM EST 08/09/2024 10:54 AM EST Gunner Pfeiffer MD LAB BLOOD ORDERABLES [facility] [address] [place] [address], * Ferritin (08/09/2024 10:41 AM EST) Only the most recent of3 resultswithin the time period is included. Ferritin 40 8 - 252 ng/mL LAB CHEMISTRY METHOD 08/09/2024 11:45 AM EST [facility] Blood Venous blood specimen / Unknown Venipuncture / Unknown 08/09/2024 10:41 AM EST 08/09/2024 10:54 AM EST Gunner Pfeiffer MD LAB BLOOD ORDERABLES Performing Organization Address City/[facility]/ZIP Co de Phone Number [facility] [address] [place] [address], * (ABNORMAL) Procalcitonin (08/09/2024 8:12 AM EST) Only the most recent of2 resultswithin the time period is included. Procalcitonin 0.88(H) <=0.16 ng/mL LAB CHEMISTRY METHOD 08/09/2024 10:22 AM EST [facility] Blood Venous blood specimen / Unknown Venipuncture / Unknown 08/09/2024 8:12 AM EST 08/09/2024 8:46 AM EST Narrative [facility] - 08/09/2024 10:22 AM EST [...] LAB BLOOD ORDERABLE S Performing Organization Address City/[facility]/ZIP Co de Phone Number [facility] [address] [place] [address], [place] [phone] * Activated Partial Thromboplastin Time - STAT (08/09/2024 5:31 AM EST) Pathologist [facility] aPTT 28.2 24.1 - 39.3 sec LAB COAGULATION METHOD 08/09/2024 6:05 AM EST [facility] Blood Venous blood specimen / Unknown Venipuncture / Unknown 08/09/2024 5:31 AM EST 08/09/2024 5:53 AM EST Sujata Peterson MD LAB BLOOD ORDERA BLES Performing Organization Address [facility]/ZIP Co de Phone Number [facility] [address] [place] [address], [place] [phone] * Prothrombin Time with INR - STAT (08/09/2024 5:31 AM EST) Protime 12.3 10.6 - 13.9 sec LAB COAGULATION METHOD 08/09/2024 6:05 AM EST [facility] INR 1.0 LAB COAGULATION METHOD 08/09/2024 6:05 AM EST [facility] Blood Venous blood specimen / Unknown Venipuncture / Unknown 08/09/2024 5:31 AM EST 08/09/2024 5:53 AM EST Sujata Peterson MD LAB BLOOD ORDERA BLES [facility] [address] [place] [address], [place] [phone] * ECG-Outside (08/09/2024) Provider Onbase MD ECG ORDERABLES * ECG-Annotated (08/09/2024) Only the most recent of2 resultswithin the time period is included. Provider Onbase MD ECG ORDERABLES * (ABNORMAL) B-type natriuretic peptide (08/08/2024 10:16 PM EST) BNP 1,083(H) <=100 pcg/mL LAB CHEMISTRY METHOD 08/08/2024 11:07 PM EST [facility] Blood Venous blood specimen / Unknown Venipuncture / Unknown 08/08/2024 10:16 PM EST 08/08/2024 10:29 PM EST Sujata Peterson MD LAB BLOOD ORDERA BLES [facility] [address] [place] [address], [place] [phone] * IN CRITICAL CARE 30-74 MINUTES (08/08/2024 9:45 PM [...] reflex microscopic (07/20/2024 5:45 AM EST) Pathologist [facility] Specific [place] Urine 1.014 1.003 - 1.030 LAB URINALYSIS - AUTOMATED METHOD 07/20/2024 12:33 PM [facility] pH, Urine 6.0 5.0 - 8.0 pH LAB URINALYSIS - AUTOMATED METHOD 07/20/2024 12:33 PM [facility] Leukocytes, Urine Negative Negative LAB URINALYSIS - AUTOMATED METHOD 07/20/2024 12:33 PM [facility] Nitrite, Urine Negative Negative LAB URINALYSIS - AUTOMATED METHOD 07/20/2024 12:33 PM [facility] Protein, Urine Trace <=Trace mg/dL LAB URINALYSIS - AUTOMATED METHOD 07/20/2024 12:33 PM [facility] Glucose, Urine Negative Negative mg/dL LAB URINALYSIS - AUTOMATED METHOD 07/20/2024 12:33 PM [facility] Ketones, Urine Negative Negative mg/dL LAB URINALYSIS - AUTOMATED METHOD 07/20/2024 12:33 PM [facility] Urobilinogen, Urine 0.2 0.2 - 1.0 mg/dL LAB URINALYSIS - AUTOMATED METHOD 07/20/2024 12:33 PM [facility] Bilirubin, Urine Negative Negative LAB URINALYSIS - AUTOMATED METHOD 07/20/2024 12:33 PM [facility] Blood, Urine Negative Negative LAB URINALYSIS - AUTOMATED METHOD 07/20/2024 12:33 PM [facility] Urine Urine specimen obtained by clean catch procedure / Unknown Non-blood Collection / Unknown 07/20/2024 5:45 AM EST 07/20/2024 11:44 AM EST Rey Escalante MD LAB URINE ORDERABLES Performing Organization Address City/[facility]/ZIP Co de Phone Number [facility] [address] [place] [address], [place] [phone] * Waters urine culture tube (07/20/2024 5:45 AM EST) Only the most recent of3 resultswithin the time period is included. Pathologist [facility] Extra Tube Hold for add-ons. 07/23/2024 3:01 PM [facility] Comment:Auto resulted. Urine Urine specimen obtained by clean catch procedure / Unknown 07/20/2024 5:45 AM EST 07/20/2024 12:10 PM EST Rey Escalante MD LAB URINE ORDERABLES Performing Organization Address City/[facility]/ZIP Co de Phone Number [facility] [address] [place] [address], [place] [phone] * (ABNORMAL) Urinalysis with reflex microscopic and culture (07/20/2024 12:00 AM EST) Only the most recent of2 resultswithin the time period is included. Specific [place] Urine 1.029 1.003 - 1.030 LAB URINALYSIS - AUTOMATED METHOD 07/21/2024 9:38 AM [facility] pH, Urine 6.5 5.0 - 8.0 pH LAB URINALYSIS - AUTOMATED METHOD 07/21/2024 9:38 AM [facility] Leukocytes, Urine Moderate(A) Negative LAB URINALYSIS - AUTOMATED METHOD 07/21/2024 9:38 AM [facility] Nitrite, Urine Negative Negative LAB URINALYSIS - AUTOMATED METHOD 07/21/2024 9:38 AM [facility] Protein, Urine Trace <=Trace mg/dL LAB URINALYSIS - AUTOMATED METHOD 07/21/2024 9:38 AM [facility] Glucose, Urine Negative Negative mg/dL LAB URINALYSIS - AUTOMATED METHOD 07/21/2024 9:38 AM [facility] Ketones, Urine Negative Negative mg/dL LAB URINALYSIS - AUTOMATED METHOD 07/21/2024 9:38 AM [facility] Urobilinogen , Urine 0.2 0.2 - 1.0 mg/dL LAB URINALYSIS - AUTOMATED METHOD 07/21/2024 9:38 AM [facility] Bilirubin, Urine Negative Negative LAB URINALYSIS - AUTOMATED METHOD 07/21/2024 9:38 AM [facility] Blood, Urine Negative Negative LAB URINALYSIS - AUTOMATED METHOD 07/21/2024 9:38 AM [facility] RBC, Urine 1.8 0 - 4 /HPF LAB URINALYSIS - AUTOMATED METHOD 07/21/2024 9:38 AM [facility] WBC, Urine 12.2(H) 0 - 4 /HPF LAB URINALYSIS - AUTOMATED METHOD 07/21/2024 9:38 AM [facility] Squamous Epithelial, Urine 72(H) 0 - 60 /LPF LAB URINALYSIS - AUTOMATED METHOD 07/21/2024 9:38 AM EST [facility] Bacteria, Urine Negative Negative /HPF LAB URINALYSIS - AUTOMATED METHOD 07/21/2024 9:38 AM [facility] Hyaline Casts, Urine 0.8 0 - 3 /LPF LAB URINALYSIS - AUTOMATED METHOD 07/21/2024 9:38 AM [facility] Urine Urine specimen obtained by clean catch procedure / Unknown 07/20/2024 07/21/2024 9:13 AM EST Rey Escalante MD LAB URINE ORDERABLES Performing Organization Address City/[facility]/ZIP Co de Phone Number [facility] [address] [place] [address], [place] [phone] * Culture urine (07/20/2024 12:00 AM EST) Only the most recent of2 resultswithin the time period is included. Culture, Urine No growth 07/22/2024 12:44 PM [facility] Urine Urine specimen obtained by clean catch procedure / Unknown 07/20/2024 07/21/2024 9:38 AM EST Rey Escalante MD LAB MICROBIOLOGY - G ENERAL ORDERABLES Performing Organization Address City/[facility]/ZIP Co de Phone Number [facility] [address] [place] [address], [place] [phone] * [place] BB tube (07/18/2024 7:16 AM EST) Extra Tube Hold for add-ons. 07/18/2024 11:01 AM [facility] Comment:Auto resulted. Blood Venous blood specimen / Unknown Venipuncture / Unknown 07/18/2024 7:16 AM EST 07/18/2024 9:01 AM EST Rey Escalante MD LAB BLOOD ORDERABLES [facility] [address] [place] [address], [place] [phone] * Type and screen (07/18/2024 7:16 AM EST) [facility] ABO Group A 07/18/2024 3:57 PM EST [facility] Rh Type Positive 07/18/2024 3:57 PM EST [facility] Antibody Screen Negative 07/18/2024 3:57 PM EST [facility] Blood Venous blood specimen / Unknown Venipuncture / Unknown 07/18/2024 7:16 AM EST 07/18/2024 2:19 PM EST Rey Escalante MD LAB BLOOD BANK TEST ORDERABLES Performing Organization Address [facility]/ZIP Co de Phone Number [facility] [address] [place] [address], [place] [phone] * Folate (07/18/2024 7:16 AM EST) Only the most recent of2 resultswithin the time period is included. [facility] Folate 3.7 2.8 - 17.0 ng/ml LAB CHEMISTRY METHOD 07/18/2024 12:29 PM EST [facility] Blood Venous blood specimen / Unknown Venipuncture / Unknown 07/18/2024 7:16 AM EST 07/18/2024 9:05 AM EST Rey Escalante MD LAB BLOOD ORDERABLES Performing Organization Address City/[facility]/ZIP Co de Phone Number [facility] [address] [place] [address], [place] [phone] * Vitamin B12 (07/18/2024 7:16 AM EST) Only the most recent of2 resultswithin the time period is included. [facility] Vitamin B-12 525 250 - 900 pcg/mL LAB CHEMISTRY METHOD 07/18/2024 12:29 PM EST [facility] Blood Venous blood specimen / Unknown Venipuncture / Unknown 07/18/2024 7:16 AM EST 07/18/2024 9:05 AM EST Rey Escalante MD LAB BLOOD ORDERABLES Performing Organization Address [facility]/ZIP Co de Phone Number [facility] [address] [place] [address], [place] [phone] * Prepare RBC: 1 Units (07/18/2024 12:00 AM EST) [facility] Signature Product Code [id number] 07/18/2024 4:23 PM EST [facility] Unit Number [id number] 07/18/20 4:23 PM EST [facility] Crossmatch Compatible 07/18/2024 4:22 PM EST [facility] Dispense Status Ready for Pick-up 07/18/2024 4:23 PM EST [facility] Unit ABO Rh APOS 07/18/2024 4:23 PM EST [facility] Unit Expiration Date Time [id number] 07/18/2024 4:23 PM EST [facility] Unit Blood Type 6200 07/18/2024 4:23 PM EST [facility] Blood Venous blood specimen / Unknown 07/18/2024 07/18/2024 2:19 PM EST eRy Escalante MD BLOOD BANK PRODUCT O RDERABLES Performing Organization Address City/[facility]/ZIP Co de Phone Number [facility] [address] [place] [address], [place] [phone] [facility] from Last 3 Months Advance Directives Documents on File Type Date Recorded 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
--- OUTSIDE RECORDS SUMMARY | 2024-10-01 06:22 | XMS_ITS | Encounter Summary ---
Author Organization [facility] Address [address] [place] [address] Care Team Providers Care Greenhouse Transplanter Name Role Phone Dale Pinto MD Primary Care Provider [phone] Encounter Details Date Type Department Care Team (Late st Contact Info) Description 07/18/2024 Lab Requisition [facility] - Main Lab 299 [facility] [place] [address] Rey Escalante MD [address] [place] [address] Acute respiratory failure with hypoxia (CMS/HCC) Social [...] LAB CHEMISTRY METHOD 07/18/2024 12:29 PM EST [facility] TIBC 234(L) 250 - 450 mcg/dL LAB CHEMISTRY METHOD 07/18/2024 12:29 PM EST [facility] Iron Saturation 6(L) 15 - 50 % LAB CHEMISTRY METHOD 07/18/2024 12:29 PM EST [facility] Blood Venous blood specimen / Unknown Venipuncture / Unknown 07/18/2024 7:16 AM EST 07/18/2024 9:05 AM EST Rey Escalante MD LAB BLOOD ORDERABLES [facility] [address] [place] [address], * Folate (07/18/2024 7:16 AM EST) Pathologist [facility] Folate 3.7 2.8 - 17.0 ng/ml LAB CHEMISTRY METHOD 07/18/2024 12:29 PM EST [facility] Blood Venous blood specimen / Unknown Venipuncture / Unknown 07/18/2024 7:16 AM EST 07/18/2024 9:05 AM EST Rey Escalante MD LAB BLOOD ORDERABLES Performing Organization Address City/[facility]/ZIP Co de Phone Number [facility] [address] [place] [address], * Ferritin (07/18/2024 7:16 AM EST) Ferritin 38 8 - 252 ng/mL LAB CHEMISTRY METHOD 07/18/2024 12:29 PM [facility] Blood Venous blood specimen / Unknown Venipuncture / Unknown 07/18/2024 7:16 AM EST 07/18/2024 9:05 AM EST Rey Escalante MD LAB BLOOD ORDERABLES Performing Organization Address [facility]/ZIP Co de Phone Number [facility] [address] [place] [address], * (ABNORMAL) Complete blood count (07/18/2024 7:16 AM EST) Pathologist [facility] WBC 14.4(H) 4.8 - 10.8 K/mcL LAB HEMETOLOGY METHOD 07/18/2024 10:39 AM [facility] RBC 3.40(L) 3.80 - 4.80 M/[facility] LAB HEMETOLOGY METHOD 07/18/2024 10:39 AM [facility] Hemoglobin 7.3(L) 11.5 - 16.0 g/dL LAB HEMETOLOGY METHOD 07/18/2024 10:39 AM [facility] Hematocrit 24.2(L) 35.0 - 47.0 % LAB HEMETOLOGY METHOD 07/18/2024 10:39 AM [facility] MCV 71.2(L) 79.0 - 98.0 FL LAB HEMETOLOGY METHOD 07/18/2024 10:39 AM [facility] MCH 21.5(L) 27.0 - 32.0 pcg LAB HEMETOLOGY METHOD 07/18/2024 10:39 AM EST [facility] MCHC 30.2(L) 32.0 - 37.0 g/dL LAB HEMETOLOGY METHOD 07/18/2024 10:39 AM [facility] RDW 18.6(H) 11.0 - 15.0 % LAB HEMETOLOGY METHOD 07/18/2024 10:39 AM [facility] Platelets 715(H) 130 - 400 K/mcL LAB HEMETOLOGY METHOD 07/18/2024 10:39 AM [facility] MPV 9.6 7.0 - 11.0 FL LAB HEMETOLOGY METHOD 07/18/2024 10:39 AM [facility] NRBC 0.0 <1.0 % LAB HEMETOLOGY METHOD 07/18/2024 10:39 AM [facility] NRBC Absolute 0.00 <0.10 K/mcL LAB HEMETOLOGY METHOD 07/18/2024 10:39 AM [facility] Blood Venous blood specimen / Unknown Venipuncture / Unknown 07/18/2024 7:16 AM EST 07/18/2024 9:05 AM EST Rey Escalante MD LAB BLOOD ORDERABLES [facility] [address] [place] [address], * Vitamin B12 (07/18/2024 7:16 AM EST) [facility] Vitamin B-12 525 250 - 900 pcg/mL LAB CHEMISTRY METHOD 07/18/2024 12:29 PM EST [facility] Blood Venous blood specimen / Unknown Venipuncture / Unknown 07/18/2024 7:16 AM EST 07/18/2024 9:05 AM EST Rey Escalante MD LAB BLOOD ORDERABLES [facility] [address] [place] [address], documented in this encounter Visit Diagnoses Diagnosis [...] documented as of this encounter Care Teams Greenhouse Transplanter Relationship Specialty Start Date End Date Dale Pinto MD [address] [place] [address] PCP - General Internal Medicine 11/10/21 documented as of this encounter
--- OUTSIDE RECORDS SUMMARY | 2024-10-01 06:22 | XMS_ITS | Encounter Summary ---
Author Organization [facility] Address [address] [place] [address] Care Team Providers Care Ski Guide Name Role Phone Dale Pinto MD Primary Care Provider [phone] Encounter Details Date Type Department Care Team (Late st Contact Info) Description 07/11/2024 Lab Requisition [facility] - Main Lab 299 [facility] [place] [address] Rey Escalante MD [address] [place] [address] Urinary tract infection, site not specified Social [...] Staphylococcus lugdunensis(A) SANDRA 07/15/2024 12:31 PM EST [facility] Comment: Beta-lactamase negative The organism value for this result has been updated. These results have been appended to the previously preliminary verified report. Urine Urine specimen obtained by clean catch procedure / Unknown 07/10/2024 12:45 PM EST 07/11/2024 10:29 AM EST Narrative [facility] - 07/15/2024 12:31 PM EST [...] MD LAB MICROBIOLOGY - G ENERAL ORDERABLES [facility] [address] [place] [address], [place] [phone] * (ABNORMAL) Urinalysis with reflex microscopic and culture (07/10/2024 12:45 PM EST) Specific [place] Urine 1.010 1.003 - 1.030 LAB URINALYSIS - AUTOMATED METHOD 07/11/2024 10:30 AM [facility] pH, Urine 6.5 5.0 - 8.0 pH LAB URINALYSIS - AUTOMATED METHOD 07/11/2024 10:30 AM [facility] Leukocytes, Urine Large(A) Negative LAB URINALYSIS - AUTOMATED METHOD 07/11/2024 10:30 AM [facility] Nitrite, Urine Negative Negative LAB URINALYSIS - AUTOMATED METHOD 07/11/2024 10:30 AM [facility] Protein, Urine Trace <=Trace mg/dL LAB URINALYSIS - AUTOMATED METHOD 07/11/2024 10:30 AM [facility] Glucose, Urine Negative Negative mg/dL LAB URINALYSIS - AUTOMATED METHOD 07/11/2024 10:30 AM [facility] Ketones, Urine Negative Negative mg/dL LAB URINALYSIS - AUTOMATED METHOD 07/11/2024 10:30 AM [facility] Urobilinogen , Urine 0.2 0.2 - 1.0 mg/dL LAB URINALYSIS - AUTOMATED METHOD 07/11/2024 10:30 AM [facility] Bilirubin, Urine Negative Negative LAB URINALYSIS - AUTOMATED METHOD 07/11/2024 10:30 AM [facility] Blood, Urine Moderate(A) Negative LAB URINALYSIS - AUTOMATED METHOD 07/11/2024 10:30 AM [facility] RBC, Urine 1.5 0 - 4 /HPF LAB URINALYSIS - AUTOMATED METHOD 07/11/2024 10:30 AM [facility] WBC, Urine 8.7(H) 0 - 4 /HPF LAB URINALYSIS - AUTOMATED METHOD 07/11/2024 10:30 AM [facility] Squamous Epithelial, Urine >100(H) 0 - 60 /LPF LAB URINALYSIS - AUTOMATED METHOD 07/11/2024 10:30 AM [facility] Bacteria, Urine Negative Negative /HPF LAB URINALYSIS - AUTOMATED METHOD 07/11/2024 10:30 AM [facility] Hyaline Casts, Urine 0.8 0 - 3 /LPF LAB URINALYSIS - AUTOMATED METHOD 07/11/2024 10:30 AM [facility] Urine Urine specimen obtained by clean catch procedure / Unknown 07/10/2024 12:45 PM EST 07/11/2024 9:13 AM EST Rey Escalante MD LAB URINE ORDERABLES Performing Organization Address City/[facility]/ZIP Co de Phone Number [facility] [address] [place] [address], [place] [phone] * Waters urine culture tube (07/10/2024 12:45 PM EST) Extra Tube Hold for add-ons. 07/11/2024 11:01 AM [facility] Comment:Auto resulted. Urine Urine specimen obtained by clean catch procedure / Unknown 07/10/2024 12:45 PM EST 07/11/2024 9:13 AM EST Rey Escalante MD LAB URINE ORDERABLES [facility] [address] [place] [address], [place] [phone] documented in this encounter Visit Diagnoses Diagnosis [...] documented as of this encounter Care Teams Ski Guide Relationship Specialty Start Date End Date Dale Pinto MD [address] [place] [address] PCP - General Internal Medicine 11/10/21 documented as of this encounter
--- OUTSIDE RECORDS SUMMARY | 2024-10-01 06:22 | XMS_ITS | Encounter Summary ---
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; Anemia, unspecified; Acute [...] Acute respiratory failure with hypoxia (CMS/HCC) Other prison (current) drug therapy IRON AND TIBC Routine 07/11/2024 7:03 AM EST Anemia, unspecified Acute respiratory failure with hypoxia (CMS/HCC) Other prison (current) drug therapy CBC AND DIFFERENTIAL Routine 07/11/2024 7:03 AM EST Anemia, unspecified Acute respiratory failure with hypoxia (CMS/HCC) 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 FOLATE Routine 07/11/2024 7:03 AM EST Anemia, unspecified Acute respiratory failure with hypoxia (CMS/HCC) Other prison (current) drug therapy FERRITIN Routine 07/11/2024 7:03 AM EST Anemia, unspecified Acute respiratory failure with hypoxia (CMS/HCC) 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 VITAMIN B12 Routine 07/11/2024 7:03 AM EST Anemia, unspecified Acute respiratory failure with hypoxia (CMS/HCC) Other prison (current) drug therapy documented in this encounter Results * (ABNORMAL) CBC auto differential (07/11/2024 7:03 AM EST) [facility] WBC 14.3(H) 4.8 - 10.8 K/mcL LAB HEMETOLOGY METHOD 07/11/2024 1:49 PM [facility] RBC 3.90 3.80 - 4.80 M/mcL LAB HEMETOLOGY METHOD 07/11/2024 1:49 PM [facility] Hemoglobin 8.3(L) 11.5 - 16.0 g/dL LAB HEMETOLOGY METHOD 07/11/2024 1:49 PM [facility] Hematocrit 27.5(L) 35.0 - 47.0 % LAB HEMETOLOGY METHOD 07/11/2024 1:49 PM [facility] MCV 70.7(L) 79.0 - 98.0 FL LAB HEMETOLOGY METHOD 07/11/2024 1:49 PM [facility] MCH 21.3(L) 27.0 - 32.0 pcg LAB HEMETOLOGY METHOD 07/11/2024 1:49 PM [facility] MCHC 30.2(L) 32.0 - 37.0 g/dL LAB HEMETOLOGY METHOD 07/11/2024 1:49 PM [facility] RDW 18.4(H) 11.0 - 15.0 % LAB HEMETOLOGY METHOD 07/11/2024 1:49 PM [facility] Platelets 873(H) 130 - 400 K/mcL LAB HEMETOLOGY METHOD 07/11/2024 1:49 PM [facility] MPV 9.6 7.0 - 11.0 FL LAB HEMETOLOGY METHOD 07/11/2024 1:49 PM [facility] NRBC 0.0 <1.0 % LAB HEMETOLOGY METHOD 07/11/2024 1:49 PM [facility] NRBC Absolute 0.00 <0.10 K/mcL LAB HEMETOLOGY METHOD 07/11/2024 1:49 PM [facility] Neutrophils Relative 83.9 % LAB HEMETOLOGY METHOD 07/11/2024 1:49 PM [facility] Lymphocytes Relative 8.1 % LAB HEMETOLOGY METHOD 07/11/2024 1:49 PM [facility] Monocytes Relative 3.1 % LAB HEMETOLOGY METHOD 07/11/2024 1:49 PM [facility] Eosinophils Relative 4.0 % LAB HEMETOLOGY METHOD 07/11/2024 1:49 PM [facility] Basophils Relative 0.3 % LAB HEMETOLOGY METHOD 07/11/2024 1:49 PM [facility] Immature Granulocytes Relative 0.6 % LAB HEMETOLOGY METHOD 07/11/2024 1:49 PM EST [facility] Neutrophils Absolute 11.99(H) 1.50 - 7.00 K/mcL LAB HEMETOLOGY METHOD 07/11/2024 1:49 PM EST [facility] Lymphocytes Absolute 1.16 1.00 - 5.00 K/mcL LAB HEMETOLOGY METHOD 07/11/2024 1:49 PM EST [facility] Monocytes Absolute 0.44 0.20 - 1.00 K/mcL LAB HEMETOLOGY METHOD 07/11/2024 1:49 PM EST [facility] Eosinophils Absolute 0.57(H) 0.00 - 0.50 K/[facility] LAB HEMETOLOGY METHOD 07/11/2024 1:49 PM EST [facility] Basophils Absolute 0.04 0.00 - 0.20 K/mcL LAB HEMETOLOGY METHOD 07/11/2024 1:49 PM EST [facility] Immature Granulocytes Absolute 0.08(H) 0.00 - 0.03 K/[facility] LAB HEMETOLOGY METHOD 07/11/2024 1:49 PM EST [facility] Blood Venous blood specimen / Unknown Venipuncture / Unknown 07/11/2024 7:03 AM EST 07/11/2024 8:31 AM EST Rey Escalante MD LAB BLOOD ORDERABLES [facility] [address] [place] [address], * Folate (07/11/2024 7:03 AM EST) Folate 3.8 2.8 - 17.0 ng/ml LAB CHEMISTRY METHOD 07/11/2024 11:13 AM EST [facility] Blood Venous blood specimen / Unknown Venipuncture / Unknown 07/11/2024 7:03 AM EST 07/11/2024 8:31 AM EST Rey Escalante MD LAB BLOOD ORDERABLES Performing Organization Address [facility]/ZIP Co de Phone Number [facility] [address] [place] [address], [place] [phone] * Vitamin B12 (07/11/2024 7:03 AM EST) Vitamin B-12 571 250 - 900 pcg/mL LAB CHEMISTRY METHOD 07/11/2024 11:13 AM [facility] Blood Venous blood specimen / Unknown Venipuncture / Unknown 07/11/2024 7:03 AM EST 07/11/2024 8:31 AM EST Rey Escalante MD LAB BLOOD ORDERABLES Performing Organization Address [facility] de Phone Number [facility] [address] [place] [address], [place] [phone] * (ABNORMAL) Iron and TIBC (07/11/2024 7:03 AM EST) Iron 12(L) 40 - 150 mcg/dL LAB CHEMISTRY METHOD 07/11/2024 11:13 AM [facility] TIBC 269 250 - 450 mcg/dL LAB CHEMISTRY METHOD 07/11/2024 11:13 AM [facility] Iron Saturation 4(L) 15 - 50 % LAB CHEMISTRY METHOD 07/11/2024 11:13 AM [facility] Blood Venous blood specimen / Unknown Venipuncture / Unknown 07/11/2024 7:03 AM EST 07/11/2024 8:31 AM EST Rey Escalante MD LAB BLOOD ORDERABLES Performing Organization Address [facility]/ZIP Co de Phone Number [facility] [address] [place] [address], [place] [phone] * Ferritin (07/11/2024 7:03 AM EST) Ferritin 34 8 - 252 ng/mL LAB CHEMISTRY METHOD 07/11/2024 11:13 AM EST [facility] Blood Venous blood specimen / Unknown Venipuncture / Unknown 07/11/2024 7:03 AM EST 07/11/2024 8:31 AM EST Rey Escalante MD LAB BLOOD ORDERABLES [facility] [address] [place] [address], documented in this encounter Visit Diagnoses Diagnosis 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
--- OUTSIDE RECORDS SUMMARY | 2024-10-01 06:22 | XMS_ITS | Encounter Summary ---
Author Organization [facility] Address [address] [place] [address] Care Team Providers Care Equipment Sterilizer Name Role Phone Dale Pinto MD Primary Care Provider [phone] Encounter Details Date Type Department Care Team (Late st Contact Info) Description 07/21/2024 Lab Requisition [facility] - Main Lab 299 [facility] [place] [address] Rey Escalante MD [address] [place] [address] Dysuria Social History Tobacco Use Types Packs/Day [...] Culture urine (07/20/2024 12:00 AM EST) Pathologist [facility] Culture, Urine No growth 07/22/2024 12:44 PM [facility] Urine Urine specimen obtained by clean catch procedure / Unknown 07/20/2024 07/21/2024 9:38 AM EST Rey Escalante MD LAB MICROBIOLOGY - G ENERAL ORDERABLES [facility] [address] [place] [address], * (ABNORMAL) Urinalysis with reflex microscopic and culture (07/20/2024 12:00 AM EST) Pathologist [facility] Specific [place] Urine 1.029 1.003 - 1.030 LAB URINALYSIS [...] EST Rey Escalante MD LAB URINE ORDERABLES [facility] [address] [place] [address], * Waters urine culture tube (07/20/2024 12:00 AM EST) Extra Tube Hold for add-ons. 07/21/2024 11:01 AM EST [facility] Comment:Auto resulted. Urine Urine specimen obtained by clean catch procedure / Unknown 07/20/2024 07/21/2024 9:13 AM EST Rey Escalante MD LAB URINE ORDERABLES [facility] [address] [place] [address], documented in this encounter Visit Diagnoses Diagnosis [...] documented as of this encounter Care Teams Equipment Sterilizer Relationship Specialty Start Date End Date Dale Pinto MD [address] [place] [address] PCP - General Internal Medicine 11/10/21 documented as of this encounter
--- OUTSIDE RECORDS SUMMARY | 2024-10-01 06:22 | XMS_ITS | Patient Health Record ---
Author Organization [facility] [place] Address [address] [facility] [place] [address] Care Team Providers Care Conference Concierge Name Role Phone Dale Pinto MD Primary Care Provider Peggy Jackson Unavailable [phone] Hanna Aggarwal Unavailable [phone] Allergies Allergen (clinical drug ingredient) Drug/Non Drug [...] Problem Status W/U Status Risk Notes Problem [id number] Hallux valgus (acquired), left foot (M20.12) Active confirmed Problem [id number] Hallux valgus (acquired), right foot (M20.11) Active confirmed Problem 393108003 Hammer toe of right foot (M20.41) Active confirmed Problem [id number] Hammer toe of left foot (M20.42) Active confirmed Problem [id number] Lower limb length difference (M21.70) Active confirmed Vital Signs Blood pressure diastolic 70 mm Hg 04/25/2024 Height 8qw87bh in 04/25/2024 Blood pressure systolic 127 mm Hg 04/25/2024 Weight 100 lbs 04/25/2024 BMI 20.9 kg/m2 04/25/2024 Encounters Encounter Location Date Provider Diagnosis [address] [address] 06/08/2024 Hanna Aggarwal [address] [address] 11/04/2023 Peggy Curiela Tinea unguium B35.1 ; Pain in right toe(s) M79.674 and Pain in left toe(s) M79.[address] [address] 04/25/2024 Peggy Curiela Tinea unguium B35.1 ; Pain in right toe(s) M79.674 and Pain in left toe(s) M79.[address] [address] 04/16/2024 Peggy Parker [address] [address] 06/07/2024 Peggy Parker [address] [address] 07/25/2024 Peggy Parker Assessments Encounter Date Diagnosis [...] Inc [address] [place] [address] [id number] KaseyLouann byrd Self - patient is the insured [facility] [address] [place] [address] [phone] [id number] Louann Barrientos Self - patient is [...]
--- OUTSIDE RECORDS SUMMARY | 2024-10-01 06:22 | XMS_ITS | Encounter Summary ---
Author Organization [facility] Address [address] [place] [address] Care Team Providers Care Ict Support And Test Engineers Name Role Phone Dale Pinto MD Primary Care Provider [phone] Encounter Details Date Type Department Care Team (Latest Contact Info) Description 07/20/2024 Lab Requisition [facility] - Main Lab 299 [facility] [place] [address] Rey Escalante MD [address] [place] [address] Allergic rhinitis due to pollen; Other abnormal [...] tube (07/20/2024 5:45 AM EST) Pathologist [facility] Extra Tube Hold for add-ons. 07/23/2024 3:01 PM [facility] Comment:Auto resulted. Urine Urine specimen obtained by clean catch procedure / Unknown 07/20/2024 5:45 AM EST 07/20/2024 12:10 PM EST Rey Escalante MD LAB URINE ORDERABLES [facility] [address] [place] [address], * Urinalysis with reflex microscopic (07/20/2024 5:45 AM EST) Pathologist [facility] Specific [place] Urine 1.014 1.003 - 1.030 LAB URINALYSIS - AUTOMATED METHOD 07/20/2024 12:33 PM [facility] pH, Urine 6.0 5.0 - 8.0 pH LAB URINALYSIS - AUTOMATED METHOD 07/20/2024 12:33 PM [facility] Leukocytes, Urine Negative Negative LAB URINALYSIS - AUTOMATED METHOD 07/20/2024 12:33 PM [facility] Nitrite, Urine Negative Negative LAB URINALYSIS - AUTOMATED METHOD 07/20/2024 12:33 PM [facility] Protein, Urine Trace <=Trace mg/dL LAB URINALYSIS - AUTOMATED METHOD 07/20/2024 12:33 PM [facility] Glucose, Urine Negative Negative mg/dL LAB URINALYSIS - AUTOMATED METHOD 07/20/2024 12:33 PM [facility] Ketones, Urine Negative Negative mg/dL LAB URINALYSIS - AUTOMATED METHOD 07/20/2024 12:33 PM [facility] Urobilinogen, Urine 0.2 0.2 - 1.0 mg/dL LAB URINALYSIS - AUTOMATED METHOD 07/20/2024 12:33 PM [facility] Bilirubin, Urine Negative Negative LAB URINALYSIS - AUTOMATED METHOD 07/20/2024 12:33 PM [facility] Blood, Urine Negative Negative LAB URINALYSIS - AUTOMATED METHOD 07/20/2024 12:33 PM [facility] Urine Urine specimen obtained by clean catch procedure / Unknown Non-blood Collection / Unknown 07/20/2024 5:45 AM EST 07/20/2024 11:44 AM EST Rey Escalante MD LAB URINE ORDERABLES [facility] [address] [place] [address], documented in this encounter Visit Diagnoses Diagnosis [...] documented as of this encounter Care Teams Ict Support And Test Engineers Relationship Specialty Start Date End Date Dale Pinto MD [address] [place], [place] PCP - General Internal Medicine 11/10/21 documented as of this encounter
--- OUTSIDE RECORDS SUMMARY | 2024-10-01 06:22 | XMS_ITS | Encounter Summary ---
Author Organization [facility] Address [address] [place] [address] Care Team Providers Care Oral Surgeon Name Role Phone Dale Pinto MD Primary Care Provider [phone] Encounter Details Date Type Department Care Team (Late st Contact Info) Description 07/09/[address] [facility] - Main Lab [address] [facility] [place] [address] Rey Escalante MD [address] [place] [phone] Acute respiratory failure with hypoxia (CMS/HCC) Social [...] K/mcL LAB HEMETOLOGY METHOD 07/09/2024 12:36 PM [facility] RBC 3.70(L) 3.80 - 4.80 M/mcL LAB HEMETOLOGY METHOD 07/09/2024 12:36 PM [facility] Hemoglobin 7.9(L) 11.5 - 16.0 g/dL LAB HEMETOLOGY METHOD 07/09/2024 12:36 PM [facility] Hematocrit 26.6(L) 35.0 - 47.0 % LAB HEMETOLOGY METHOD 07/09/2024 12:36 PM [facility] MCV 71.7(L) 79.0 - 98.0 FL LAB HEMETOLOGY METHOD 07/09/2024 12:36 PM [facility] MCH 21.3(L) 27.0 - 32.0 pcg LAB HEMETOLOGY METHOD 07/09/2024 12:36 PM [facility] MCHC 29.7(L) 32.0 - 37.0 g/dL LAB HEMETOLOGY METHOD 07/09/2024 12:36 PM [facility] RDW 18.6(H) 11.0 - 15.0 % LAB HEMETOLOGY METHOD 07/09/2024 12:36 PM [facility] Platelets 759(H) 130 - 400 K/mcL LAB HEMETOLOGY METHOD 07/09/2024 12:36 PM [facility] MPV 9.9 7.0 - 11.0 FL LAB HEMETOLOGY METHOD 07/09/2024 12:36 PM [facility] NRBC 0.0 <1.0 % LAB HEMETOLOGY METHOD 07/09/2024 12:36 PM [facility] NRBC Absolute 0.00 <0.10 K/mcL LAB HEMETOLOGY METHOD 07/09/2024 12:36 PM [facility] Neutrophils Relative 85.9 % LAB HEMETOLOGY METHOD 07/09/2024 12:36 PM [facility] Lymphocytes Relative 8.2 % LAB HEMETOLOGY METHOD 07/09/2024 12:36 PM [facility] Monocytes Relative 2.3 % LAB HEMETOLOGY METHOD 07/09/2024 12:36 PM [facility] Eosinophils Relative 2.9 % LAB HEMETOLOGY METHOD 07/09/2024 12:36 PM [facility] Basophils Relative 0.1 % LAB HEMETOLOGY METHOD 07/09/2024 12:36 PM [facility] Immature Granulocytes Relative 0.6 % LAB HEMETOLOGY METHOD 07/09/2024 12:36 PM [facility] Neutrophils Absolute 10.43(H) 1.50 - 7.00 K/mcL LAB HEMETOLOGY METHOD 07/09/2024 12:36 PM [facility] Lymphocytes Absolute 1.00 1.00 - 5.00 K/mcL LAB HEMETOLOGY METHOD 07/09/2024 12:36 PM [facility] Monocytes Absolute 0.28 0.20 - 1.00 K/mcL LAB HEMETOLOGY METHOD 07/09/2024 12:36 PM [facility] Eosinophils Absolute 0.35 0.00 - 0.50 K/mcL LAB HEMETOLOGY METHOD 07/09/2024 12:36 PM [facility] Basophils Absolute 0.01 0.00 - 0.20 K/mcL LAB HEMETOLOGY METHOD 07/09/2024 12:36 PM [facility] Immature Granulocytes Absolute 0.07(H) 0.00 - 0.03 K/mcL LAB HEMETOLOGY METHOD 07/09/2024 12:36 PM [facility] Blood Venous blood specimen / Unknown Venipuncture / Unknown 07/09/2024 5:53 AM EST 07/09/2024 12:02 PM EST Rey Escalante MD LAB BLOOD ORDERABLES [facility] [address] [place] [address], * (ABNORMAL) Comprehensive metabolic panel (07/09/2024 5:53 AM EST) Sodium 132(L) 133 - 145 mmol/L LAB CHEMISTRY METHOD 07/09/2024 1:48 PM [facility] Potassium 4.5 3.5 - 5.5 mmol/L LAB CHEMISTRY METHOD 07/09/2024 1:48 PM [facility] Chloride 96 96 - 110 mmol/L LAB CHEMISTRY METHOD 07/09/2024 1:48 PM [facility] CO2 26 21 - 32 mmol/L LAB CHEMISTRY METHOD 07/09/2024 1:48 PM [facility] Anion Gap 10 3 - 11 LAB CHEMISTRY METHOD 07/09/2024 1:48 PM [facility] Glucose 69(L) 70 - 100 mg/dL LAB CHEMISTRY METHOD 07/09/2024 1:48 PM [facility] Comment:Lipemia present BUN 5 5 - 25 mg/dL LAB CHEMISTRY METHOD 07/09/2024 1:48 PM [facility] Creatinine 0.24(L) 0.50 - 1.10 mg/dL LAB CHEMISTRY METHOD 07/09/2024 1:48 PM [facility] eGFR 116 >=60 mL/min/1. 73m2 LAB CHEMISTRY METHOD 07/09/2024 1:48 PM [facility] Comment:Calculation based on the??Chronic Kidney Disease Epidemiology Collaboration (CKD-EPI) equation refit??without adjustment for race. BUN/Creatinine Ratio 20.8 LAB CHEMISTRY METHOD 07/09/2024 1:48 PM [facility] Calcium 8.5 8.5 - 10.5 mg/dL LAB CHEMISTRY METHOD 07/09/2024 1:48 PM [facility] AST (SGOT) 11 10 - 42 unit/L LAB CHEMISTRY METHOD 07/09/2024 1:48 PM [facility] ALT (SGPT) 9(L) 10 - 60 unit/L LAB CHEMISTRY METHOD 07/09/2024 1:48 PM [facility] Alkaline Phosphatase 98 42 - 121 unit/L LAB CHEMISTRY METHOD 07/09/2024 1:48 PM [facility] Total Protein 5.9(L) 6.0 - 8.0 g/dL LAB CHEMISTRY METHOD 07/09/2024 1:48 PM [facility] Albumin 2.3(L) 3.2 - 5.0 g/dL LAB CHEMISTRY METHOD 07/09/2024 1:48 PM [facility] Total Bilirubin 0.3 0.0 - 1.4 mg/dL LAB CHEMISTRY METHOD 07/09/2024 1:48 PM [facility] Blood Venous blood specimen / Unknown Venipuncture / Unknown 07/09/2024 5:53 AM EST 07/09/2024 12:02 PM EST Rey Escalante MD LAB BLOOD ORDERABLES [facility] [address] [place] [address], documented in this encounter Visit Diagnoses Diagnosis [...] documented as of this encounter Care Teams Oral Surgeon Relationship Specialty Start Date End Date Dale Pinto MD [address] [place] [address] PCP - General Internal Medicine 11/10/21 documented as of this encounter
--- OUTSIDE RECORDS SUMMARY | 2024-10-01 06:22 | XMS_ITS | Encounter Summary ---
Author Organization [facility] Address [address] [place] [address] Care Team Providers Care It Help Desk Analyst Name Role Phone Dale Pinto MD Primary Care Provider [phone] Encounter Details Date Type Department Care Team (Late st Contact Info) Description 07/20/2024 Lab Requisition [facility] - Main Lab [address] [facility] [place] [address] Rey Escalante MD [address] [place] [phone] Acute respiratory failure with hypoxia (CMS/HCC) Social [...] K/mcL LAB HEMETOLOGY METHOD 07/20/2024 12:18 PM [facility] RBC 4.20 3.80 - 4.80 M/mcL LAB HEMETOLOGY METHOD 07/20/2024 12:18 PM [facility] Hemoglobin 9.5(L) 11.5 - 16.0 g/dL LAB HEMETOLOGY METHOD 07/20/2024 12:18 PM [facility] Hematocrit 30.3(L) 35.0 - 47.0 % LAB HEMETOLOGY METHOD 07/20/2024 12:18 PM [facility] MCV 72.7(L) 79.0 - 98.0 FL LAB HEMETOLOGY METHOD 07/20/2024 12:18 PM [facility] MCH 22.8(L) 27.0 - 32.0 pcg LAB HEMETOLOGY METHOD 07/20/2024 12:18 PM [facility] MCHC 31.4(L) 32.0 - 37.0 g/dL LAB HEMETOLOGY METHOD 07/20/2024 12:18 PM [facility] RDW 19.7(H) 11.0 - 15.0 % LAB HEMETOLOGY METHOD 07/20/2024 12:18 PM [facility] Platelets 632(H) 130 - 400 K/mcL LAB HEMETOLOGY METHOD 07/20/2024 12:18 PM [facility] MPV 9.6 7.0 - 11.0 FL LAB HEMETOLOGY METHOD 07/20/2024 12:18 PM [facility] NRBC 0.0 <1.0 % LAB HEMETOLOGY METHOD 07/20/2024 12:18 PM [facility] NRBC Absolute 0.00 <0.10 K/mcL LAB HEMETOLOGY METHOD 07/20/2024 12:18 PM [facility] Neutrophils Relative 84.5 % LAB HEMETOLOGY METHOD 07/20/2024 12:18 PM [facility] Lymphocytes Relative 7.6 % LAB HEMETOLOGY METHOD 07/20/2024 12:18 PM [facility] Monocytes Relative 2.7 % LAB HEMETOLOGY METHOD 07/20/2024 12:18 PM [facility] Eosinophils Relative 4.6 % LAB HEMETOLOGY METHOD 07/20/2024 12:18 PM [facility] Basophils Relative 0.1 % LAB HEMETOLOGY METHOD 07/20/2024 12:18 PM [facility] Immature Granulocytes Relative 0.5 % LAB HEMETOLOGY METHOD 07/20/2024 12:18 PM [facility] Neutrophils Absolute 13.28(H) 1.50 - 7.00 K/mcL LAB HEMETOLOGY METHOD 07/20/2024 12:18 PM [facility] Lymphocytes Absolute 1.19 1.00 - 5.00 K/mcL LAB HEMETOLOGY METHOD 07/20/2024 12:18 PM [facility] Monocytes Absolute 0.42 0.20 - 1.00 K/mcL LAB HEMETOLOGY METHOD 07/20/2024 12:18 PM [facility] Eosinophils Absolute 0.73(H) 0.00 - 0.50 K/mcL LAB HEMETOLOGY METHOD 07/20/2024 12:18 PM EST [facility] Basophils Absolute 0.02 0.00 - 0.20 K/mcL LAB HEMETOLOGY METHOD 07/20/2024 12:18 PM EST [facility] Immature Granulocytes Absolute 0.08(H) 0.00 - 0.03 K/mcL LAB HEMETOLOGY METHOD 07/20/2024 12:18 PM EST [facility] Blood Venous blood specimen / Unknown Venipuncture / Unknown 07/20/2024 5:49 AM EST 07/20/2024 10:03 AM EST Rey Escalante MD LAB BLOOD ORDERABLES Performing Organization Address City/State/[facility] Co de Phone Number [facility] [address] [place] [address], * Procalcitonin (07/20/2024 5:49 AM EST) Procalcitonin 0.14 <=0.16 ng/mL LAB CHEMISTRY METHOD 07/20/2024 12:40 PM EST [facility] Blood Venous blood specimen / Unknown Venipuncture / Unknown 07/20/2024 5:49 AM EST 07/20/2024 10:03 AM EST Narrative [facility] - 07/20/2024 12:40 PM EST [...] obtained. Rey Escalante MD LAB BLOOD ORDERABLES [facility] [address] [place] [address], [place] [phone] * (ABNORMAL) Comprehensive metabolic panel (07/20/2024 5:49 AM EST) Sodium 133 133 - 145 mmol/L LAB CHEMISTRY METHOD 07/20/2024 12:53 PM [facility] Potassium 4.3 3.5 - 5.5 mmol/L LAB CHEMISTRY METHOD 07/20/2024 12:53 PM [facility] Chloride 100 96 - 110 mmol/L LAB CHEMISTRY METHOD 07/20/2024 12:53 PM [facility] CO2 26 21 - 32 mmol/L LAB CHEMISTRY METHOD 07/20/2024 12:53 PM [facility] Anion Gap 7 3 - 11 LAB CHEMISTRY METHOD 07/20/2024 12:53 PM [facility] Glucose 56(L) 70 - 100 mg/dL LAB CHEMISTRY METHOD 07/20/2024 12:53 PM [facility] BUN 9 5 - 25 mg/dL LAB CHEMISTRY METHOD 07/20/2024 12:53 PM [facility] Creatinine 0.22(L) 0.50 - 1.10 mg/dL LAB CHEMISTRY METHOD 07/20/2024 12:53 PM [facility] eGFR 119 >=60 mL/min/1. 73m2 LAB CHEMISTRY METHOD 07/20/2024 12:53 PM [facility] Comment:Calculation based on the??Chronic Kidney Disease Epidemiology Collaboration (CKD-EPI) equation refit??without adjustment for race. BUN/Creatinine Ratio 40.9 LAB CHEMISTRY METHOD 07/20/2024 12:53 PM [facility] Calcium 8.6 8.5 - 10.5 mg/dL LAB CHEMISTRY METHOD 07/20/2024 12:53 PM [facility] AST (SGOT) 9(L) 10 - 42 unit/L LAB CHEMISTRY METHOD 07/20/2024 12:53 PM [facility] ALT (SGPT) 10 10 - 60 unit/L LAB CHEMISTRY METHOD 07/20/2024 12:53 PM [facility] Alkaline Phosphatase 105 42 - 121 unit/L LAB CHEMISTRY METHOD 07/20/2024 12:53 PM [facility] Total Protein 5.8(L) 6.0 - 8.0 g/dL LAB CHEMISTRY METHOD 07/20/2024 12:53 PM [facility] Albumin 2.1(L) 3.2 - 5.0 g/dL LAB CHEMISTRY METHOD 07/20/2024 12:53 PM [facility] Total Bilirubin 0.5 0.0 - 1.4 mg/dL LAB CHEMISTRY METHOD 07/20/2024 12:53 PM [facility] Blood Venous blood specimen / Unknown Venipuncture / Unknown 07/20/2024 5:49 AM EST 07/20/2024 10:03 AM EST Rey Escalante MD LAB BLOOD ORDERABLES [facility] [address] [place] [address], documented in this encounter Visit Diagnoses Diagnosis [...] documented as of this encounter Care Teams It Help Desk Analyst Relationship Specialty Start Date End Date Dale Pinto MD [address] [place] [address] PCP - General Internal Medicine 11/10/21 documented as of this encounter
--- OUTSIDE RECORDS SUMMARY | 2024-10-01 06:22 | XMS_ITS | Clinical Summary ---
Author Organization [facility] Address [address] [place] [address] Care Team Providers Care Bracelet And Brooch Maker Name Role Phone Dale Pinto MD Primary Care Provider [phone] Allergies Active Allergy Reactions Criticality Noted Date [...] this topic Medical Devices Implanted Type Area Corn Sheller Device Identifier Shelf Expiration Date Model / Serial / Lot 3.5mm Va Locking Ppfx Greater Troch Ring Left Small Implanted:Qty: 1 on 10/16/2022 by Robbie Villagran MD at [facility] Left: Femur DEPUY SYNTHES++DNU+JNJ SYNT 02.221.101 / / Screw Slftp Lk Va T15 3.5x24 Jnj-Synt 02.127.124-370 230 - [id number] Implanted:Qty: 1 on 10/16/2022 by Robbie Villagran MD at [facility] Left: Femur JNJ DEPUY SYNTHES 02.127.124 / / Screw Slftp Lk Va T15 3.5x44 Jnj-Synt 02.127.144-370 240 - [id number] Implanted:Qty: 1 on 10/16/2022 by Robbie Villagran MD at [facility] Left: Femur JNJ DEPUY SYNTHES 02.127.144 / / Screw Slftp Lk Va T15 3.5x46 Jnj-Synt 02.127.146-370 241 - [id number] Implanted:Qty: 1 on 10/16/2022 by Robbie Villagran MD at [facility] Left: Femur JNJ DEPUY SYNTHES 02.127.146 / / Screw Slftp Lk Va T15 3.5x56 Jnj-Synt 02.127.156-370 246 - [id number] Implanted:Qty: 3 on 10/16/2022 by Robbie Villagran MD at [facility] Left: Femur JNJ DEPUY SYNTHES 02.127.156 / / Screw Joseph Slftp T15 3.5x55 Stardrv Recess Jnj-Synt 02.200.055345 747 - [id number] Implanted:Qty: 1 on 10/16/2022 by Robbie Villagran MD at [facility] Left: Femur JNJ DEPUY SYNTHES 02.200.055 / / Screw 3.5mm Stardrv Slftp 80mm Jnj-Synt .200.080-223 876 - [id number] Implanted:Qty: 1 on 10/16/2022 by Robbie Villagran MD at [facility] Left: Femur JNJ DEPUY SYNTHES 02.200.080 / / Screw Slftp Va Lk Ss 5x36 Strdrv 25 Jnj-Synt 02.231.236-349 722 - [id number] Implanted:Qty: 1 on 10/16/2022 by Robbie Villagran MD at [facility] Left: Femur JNJ DEPUY SYNTHES 02.231.236 / / Screw Slftp Va Lk Ss 5x38 Strdrv 25 Jnj-Synt 02.231.238-349 723 - [id number] Implanted:Qty: 1 on 10/16/2022 by Robbie Villagran MD at [facility] Left: Femur JNJ DEPUY SYNTHES 02.231.238 / / Screw Slftp Va Lk Ss 5x40 Strdrv 25 Jnj-Synt 02.231.240-349 724 - [id number] Implanted:Qty: 1 on 10/16/2022 by Robbie Villagran MD at [facility] Left: Femur JNJ DEPUY SYNTHES 02.231.240 / / Screw Slftp Va Lk Ss 5x42 Strdrv 25 Jnj-Synt 02.231.242-349 725 - [id number] Implanted:Qty: 1 on 10/16/2022 by Robbie Villagran MD at [facility] Left: Femur JNJ DEPUY SYNTHES 02.231.242 / / Screw Cortex 4.5x36mm Self Tap Jnj-Synt 214.836-846571 - [id number] Implanted:Qty: 1 on 10/16/2022 by Robbie Villagran MD at [facility] Left: Femur JNJ DEPUY SYNTHES 214.836 / / Bone Chip Canc 30ml Inhs Nprtr Allograft Tissue Freeze Dried Musc-Trns 949976-676048 - [id number] Implanted:Qty: 1 on 10/16/2022 by Robbie Villagran MD at [facility] Left: Femur MUSCULOSKELETAL TRANSP FNDTN 03/03/2025 249696 / [id number] / Bone Chip Canc 30ml Inhs Nprtr Allograft Tissue Freeze Dried [facility] 418217-744786 - [id number] Implanted:Qty: 1 on 10/16/2022 by Robbie Villagran MD at [facility] Left: Femur MUSCULOSKELETAL TRANSP FNDTN 04/02/2025 916713 / [id number] / Bone Chip Canc 30ml Inhs Nprtr Allograft Tissue Freeze Dried [facility] 663382-648092 - [id number] Implanted:Qty: 1 on 10/16/2022 by Robbie Villagran MD at [facility] Left: Femur MUSCULOSKELETAL TRANSP FNDTN 02/10/2025 477277 / [id number] 1049 / Bone Chip Canc 30ml Inhs Nprtr Allograft Tissue Freeze Dried [facility] 322772-025973 - [id number] Implanted:Qty: 1 on 10/16/2022 by Robbie Villagran MD at [facility] Left: Femur MUSCULOSKELETAL TRANSP FNDTN 04/02/2025 641517 / [id number] / Bone Filler Bio4 Matrix 10ml Stry-Obio 0234-4072-0919 55 - [id number] Implanted:Qty: 1 on 10/16/2022 by Robbie Villagran MD at [facility] Left: Femur [employer] 03/30/2024 1778-9328 / [id number] / [id number] 3.5/4.5mm Va-Lcp Ppfx Proximal Femur Plates Left 7 Hole 216mm Implanted:Qty: 1 on 10/16/2022 by Robbie Villagran MD at [facility] Left: Femur DEPUY SYNTHES++DNU+JNJ SYNT 02221.113 / / Kit Jamalan Rapd Cure 10ml [facility] [phone] - [id number] Implanted:Qty: 1 on 11/16/2022 by Robbie Villagran MD at [facility] Left: Hip [employer] 06/04/2025 620-010 / / [id number] Explanted Type Area Corn Sheller Device Identifier Shelf Expiration Date Model / Serial / Lot 1 Plate Explanted:Qty: 1 on 10/16/2022 by Robbie Villagran MD at [facility] Left: Femur Screw Slftp Va T15 3.5x36 Jnj-Synt .127.136-370 236 - [id number] Explanted:Qty: 1 on 10/16/2022 by Robbie Villagran MD at [facility] Left: Femur JNJ DEPUY SYNTHES 127.136 / / Screw Slftp Lk Va T15 3.5x44 Jnj-Synt .127.144-370 240 - [id number] Explanted:Qty: 1 on 10/16/2022 by Robbie Villagran MD at [facility] Left: Femur JNJ DEPUY SYNTHES 127.144 / / 6 Wires Explanted:Qty: 1 on 10/16/2022 by Robbie Villagran MD at [facility] Left: Femur 1.0mm Cable With Crimp Explanted:Qty: 1 on 10/16/2022 by Robbie Villagran MD at [facility] Left: Femur 03/04/2025 298.800.01 S / / [id number] Explanted:Qty: 1 on 10/16/2022 by Robbie Villagran MD at [facility] Left: Femur Cable W Crimp 1.3z479zp Ster Jnj-Synt 298.801.01s-11 4935 - [id number] Explanted:Qty: 1 on 10/16/2022 by Robbie Villagran MD at [facility] Left: Femur JNJ DEPUY SYNTHES 01/02/2026 298.801.01 S / / [id number] Advance Directives For more information, please contact: [phone] Latest Code Status on File Code Status [...] way: discussion with patient . Care Teams Bracelet And Brooch Maker Relationship Specialty Start Date End Date Dale Pinto MD [address] [facility] [address] [facility] [place] [address] PCP - General Internal Medicine 10/06/22
--- OUTSIDE RECORDS SUMMARY | 2024-10-01 06:22 | XMS_ITS | Encounter Summary ---
Author Organization [facility] Address [address] [place] [address] Care Team Providers Care Stitching Machine Operator Name Role Phone Dale Pinto MD Primary Care Provider [phone] Encounter Details Date Type Department Care Team (Late st Contact Info) Description 07/19/2024 Lab Requisition [facility] - Main Lab [address] [facility] [place] [address] Rey Escalante MD [address] [place] [phone] Acute respiratory failure with hypoxia (CMS/HCC) Social [...] K/mcL LAB HEMETOLOGY METHOD 07/19/2024 11:25 AM [facility] RBC 4.50 3.80 - 4.80 M/mcL LAB HEMETOLOGY METHOD 07/19/2024 11:25 AM [facility] Hemoglobin 10.2(L) 11.5 - 16.0 g/dL LAB HEMETOLOGY METHOD 07/19/2024 11:25 AM [facility] Hematocrit 32.2(L) 35.0 - 47.0 % LAB HEMETOLOGY METHOD 07/19/2024 11:25 AM [facility] MCV 72.2(L) 79.0 - 98.0 FL LAB HEMETOLOGY METHOD 07/19/2024 11:25 AM [facility] MCH 22.9(L) 27.0 - 32.0 pcg LAB HEMETOLOGY METHOD 07/19/2024 11:25 AM [facility] MCHC 31.7(L) 32.0 - 37.0 g/dL LAB HEMETOLOGY METHOD 07/19/2024 11:25 AM [facility] RDW 19.0(H) 11.0 - 15.0 % LAB HEMETOLOGY METHOD 07/19/2024 11:25 AM [facility] Platelets 726(H) 130 - 400 K/mcL LAB HEMETOLOGY METHOD 07/19/2024 11:25 AM [facility] MPV 9.3 7.0 - 11.0 FL LAB HEMETOLOGY METHOD 07/19/2024 11:25 AM [facility] NRBC 0.0 <1.0 % LAB HEMETOLOGY METHOD 07/19/2024 11:25 AM [facility] NRBC Absolute 0.00 <0.10 K/mcL LAB HEMETOLOGY METHOD 07/19/2024 11:25 AM [facility] Neutrophils Relative 89.7 % LAB HEMETOLOGY METHOD 07/19/2024 11:25 AM [facility] Lymphocytes Relative 5.3 % LAB HEMETOLOGY METHOD 07/19/2024 11:25 AM [facility] Monocytes Relative 2.5 % LAB HEMETOLOGY METHOD 07/19/2024 11:25 AM [facility] Eosinophils Relative 1.5 % LAB HEMETOLOGY METHOD 07/19/2024 11:25 AM [facility] Basophils Relative 0.2 % LAB HEMETOLOGY METHOD 07/19/2024 11:25 AM [facility] Immature Granulocytes Relative 0.8 % LAB HEMETOLOGY METHOD 07/19/2024 11:25 AM [facility] Neutrophils Absolute 17.16(H) 1.50 - 7.00 K/mcL LAB HEMETOLOGY METHOD 07/19/2024 11:25 AM [facility] Lymphocytes Absolute 1.02 1.00 - 5.00 K/mcL LAB HEMETOLOGY METHOD 07/19/2024 11:25 AM [facility] Monocytes Absolute 0.48 0.20 - 1.00 K/mcL LAB HEMETOLOGY METHOD 07/19/2024 11:25 AM [facility] Eosinophils Absolute 0.28 0.00 - 0.50 K/mcL LAB HEMETOLOGY METHOD 07/19/2024 11:25 AM [facility] Basophils Absolute 0.04 0.00 - 0.20 K/mcL LAB HEMETOLOGY METHOD 07/19/2024 11:25 AM [facility] Immature Granulocytes Absolute 0.16(H) 0.00 - 0.03 K/mcL LAB HEMETOLOGY METHOD 07/19/2024 11:25 AM EST [facility] Blood Venous blood specimen / Unknown Venipuncture / Unknown 07/19/2024 10:20 AM EST 07/19/2024 10:59 AM EST Rey Escalante MD LAB BLOOD ORDERABLES [facility] [address] [place] [address], documented in this encounter Visit Diagnoses Diagnosis [...] documented as of this encounter Care Teams Stitching Machine Operator Relationship Specialty Start Date End Date Dale Pinto MD [address] [place] [address] PCP - General Internal Medicine 11/10/21 documented as of this encounter
--- OUTSIDE RECORDS SUMMARY | 2024-10-01 06:22 | XMS_ITS | Encounter Summary ---
Author Organization [facility] Address [address] [place] [address] Care Team Providers Care Estimator And Drafter Name Role Phone Dale Pinto MD Primary Care Provider [phone] Encounter Details Date Type Department Care Team (Late st Contact Info) Description 07/12/[address] [facility] - Main Lab [address] [facility] [place] [address] Rey Escalante MD [address] [place] [id number] Acute respiratory failure with hypoxia (CMS/HCC) Social [...] CBC auto differential (07/12/2024 6:37 AM EST) [facility] WBC 12.3(H) 4.8 - 10.8 K/mcL LAB HEMETOLOGY METHOD 07/12/2024 9:32 AM [facility] RBC 3.80 3.80 - 4.80 M/mcL LAB HEMETOLOGY METHOD 07/12/2024 9:32 AM [facility] Hemoglobin 8.0(L) 11.5 - 16.0 g/dL LAB HEMETOLOGY METHOD 07/12/2024 9:32 AM [facility] Hematocrit 26.3(L) 35.0 - 47.0 % LAB HEMETOLOGY METHOD 07/12/2024 9:32 AM [facility] MCV 69.9(L) 79.0 - 98.0 FL LAB HEMETOLOGY METHOD 07/12/2024 9:32 AM [facility] MCH 21.3(L) 27.0 - 32.0 pcg LAB HEMETOLOGY METHOD 07/12/2024 9:32 AM [facility] MCHC 30.4(L) 32.0 - 37.0 g/dL LAB HEMETOLOGY METHOD 07/12/2024 9:32 AM [facility] RDW 18.3(H) 11.0 - 15.0 % LAB HEMETOLOGY METHOD 07/12/2024 9:32 AM [facility] Platelets 800(H) 130 - 400 K/mcL LAB HEMETOLOGY METHOD 07/12/2024 9:32 AM [facility] MPV 9.3 7.0 - 11.0 FL LAB HEMETOLOGY METHOD 07/12/2024 9:32 AM [facility] NRBC 0.0 <1.0 % LAB HEMETOLOGY METHOD 07/12/2024 9:32 AM [facility] NRBC Absolute 0.00 <0.10 K/mcL LAB HEMETOLOGY METHOD 07/12/2024 9:32 AM [facility] Neutrophils Relative 83.6 % LAB HEMETOLOGY METHOD 07/12/2024 9:32 AM [facility] Lymphocytes Relative 8.2 % LAB HEMETOLOGY METHOD 07/12/2024 9:32 AM [facility] Monocytes Relative 3.3 % LAB HEMETOLOGY METHOD 07/12/2024 9:32 AM [facility] Eosinophils Relative 4.2 % LAB HEMETOLOGY METHOD 07/12/2024 9:32 AM [facility] Basophils Relative 0.2 % LAB HEMETOLOGY METHOD 07/12/2024 9:32 AM [facility] Immature Granulocytes Relative 0.5 % LAB HEMETOLOGY METHOD 07/12/2024 9:32 AM [facility] Neutrophils Absolute 10.25(H) 1.50 - 7.00 K/mcL LAB HEMETOLOGY METHOD 07/12/2024 9:32 AM [facility] Lymphocytes Absolute 1.00 1.00 - 5.00 K/mcL LAB HEMETOLOGY METHOD 07/12/2024 9:32 AM [facility] Monocytes Absolute 0.41 0.20 - 1.00 K/mcL LAB HEMETOLOGY METHOD 07/12/2024 9:32 AM [facility] Eosinophils Absolute 0.52(H) 0.00 - 0.50 K/mcL LAB HEMETOLOGY METHOD 07/12/2024 9:32 AM [facility] Basophils Absolute 0.02 0.00 - 0.20 K/mcL LAB HEMETOLOGY METHOD 07/12/2024 9:32 AM [facility] Immature Granulocytes Absolute 0.06(H) 0.00 - 0.03 K/[facility] LAB HEMETOLOGY METHOD 07/12/2024 9:32 AM [facility] Blood Venous blood specimen / Unknown Venipuncture / Unknown 07/12/2024 6:37 AM EST 07/12/2024 8:07 AM EST Rey Escalante MD LAB BLOOD ORDERABLES [facility] [address] [place] [address], * (ABNORMAL) Basic metabolic panel (07/12/2024 6:37 AM EST) Sodium 133 133 - 145 mmol/L LAB CHEMISTRY METHOD 07/12/2024 10:18 AM [facility] Potassium 4.4 3.5 - 5.5 mmol/L LAB CHEMISTRY METHOD 07/12/2024 10:18 AM [facility] Chloride 101 96 - 110 mmol/L LAB CHEMISTRY METHOD 07/12/2024 10:18 AM [facility] CO2 25 21 - 32 mmol/L LAB CHEMISTRY METHOD 07/12/2024 10:18 AM [facility] Anion Gap 7 3 - 11 LAB CHEMISTRY METHOD 07/12/2024 10:18 AM [facility] Glucose 72 70 - 100 mg/dL LAB CHEMISTRY METHOD 07/12/2024 10:18 AM [facility] BUN 8 5 - 25 mg/dL LAB CHEMISTRY METHOD 07/12/2024 10:18 AM [facility] Creatinine 0.21(L) 0.50 - 1.10 mg/dL LAB CHEMISTRY METHOD 07/12/2024 10:18 AM EST [facility] eGFR 120 >=60 mL/min/1. 73m2 LAB CHEMISTRY METHOD 07/12/2024 10:18 AM EST [facility] Comment:Calculation based on the??Chronic Kidney Disease Epidemiology Collaboration (CKD-EPI) equation refit??without adjustment for race. BUN/Creatinine Ratio 38.1 LAB CHEMISTRY METHOD 07/12/2024 10:18 AM EST [facility] Calcium 8.5 8.5 - 10.5 mg/dL LAB CHEMISTRY METHOD 07/12/2024 10:18 AM [facility] Blood Venous blood specimen / Unknown Venipuncture / Unknown 07/12/2024 6:37 AM EST 07/12/2024 8:07 AM EST Rey Escalante MD LAB BLOOD ORDERABLES Performing Organization Address City/State/[facility] Co de Phone Number [facility] [address] [place] [address], documented in this encounter Visit Diagnoses Diagnosis [...] documented as of this encounter Care Teams Estimator And Drafter Relationship Specialty Start Date End Date Dale Pinto MD [address] [place] [address] PCP - General Internal Medicine 11/10/21 documented as of this encounter
--- OUTSIDE RECORDS SUMMARY | 2024-10-01 06:22 | XMS_ITS ---
Author Organization [facility] Address [address] [place] [address] Care Team Providers Care Retort Press Operator Name Role Phone Dale Pinto MD Primary Care Provider Peggy Jackson Unavailable [phone] Hanna Aggarwal Unavailable [phone] Allergies Allergen (clinical drug ingredient) Drug/Non Drug [...] Not-Taking Encounters Encounter Location Date Provider Diagnosis [facility] [address] [place] [address] 06/08/2024 Hanna Aggarwal Plan Of Treatment No Information Progress Notes * TOMEKALouann Bhat KDOB:1950 (74 yo F)Acc No.[id number]:06/08/2024 Progress Note Patient:?Louann BARRIENTOS Provider:?Hanna Aggarwal DPM :1950???Age:73 Y???Sex:Female D ate:06/08/2024 Address:[address] [place] [address], [id number] Pcp:Dale Pinto MD Subjective: * Chief Complaints: [...] Provider:?Hanna Aggarwal DPM Date:?1 Generated for [place]/Dominic/Rachelitting on:?10/01/2024 01:26 AM EST
--- OUTSIDE RECORDS SUMMARY | 2024-10-01 06:23 | XMS_ITS | Encounter Summary ---
Author Organization [employer] [facility] Address [address] [place] [address] Care Team Providers Care Fur Tailor Name Role Phone Dale Pinto MD Primary Care Provider [phone] Encounter Details Date Type Department Care Team (Late st Contact Info) Description 07/17/2024 Lab Requisition [facility] - Main Lab [address] [facility] [place] [address] Rey Escalante MD [address] [place] [address] [phone] Chronic respiratory failure, unspecified whether with hypoxia [...] K/mcL LAB HEMETOLOGY METHOD 07/17/2024 10:22 AM [facility] RBC 3.40(L) 3.80 - 4.80 M/mcL LAB HEMETOLOGY METHOD 07/17/2024 10:22 AM [facility] Hemoglobin 7.3(L) 11.5 - 16.0 g/dL LAB HEMETOLOGY METHOD 07/17/2024 10:22 AM [facility] Hematocrit 23.9(L) 35.0 - 47.0 % LAB HEMETOLOGY METHOD 07/17/2024 10:22 AM [facility] MCV 70.9(L) 79.0 - 98.0 FL LAB HEMETOLOGY METHOD 07/17/2024 10:22 AM [facility] MCH 21.7(L) 27.0 - 32.0 pcg LAB HEMETOLOGY METHOD 07/17/2024 10:22 AM [facility] MCHC 30.5(L) 32.0 - 37.0 g/dL LAB HEMETOLOGY METHOD 07/17/2024 10:22 AM [facility] RDW 18.6(H) 11.0 - 15.0 % LAB HEMETOLOGY METHOD 07/17/2024 10:22 AM [facility] Platelets 749(H) 130 - 400 K/mcL LAB HEMETOLOGY METHOD 07/17/2024 10:22 AM [facility] MPV 9.4 7.0 - 11.0 FL LAB HEMETOLOGY METHOD 07/17/2024 10:22 AM [facility] NRBC 0.0 <1.0 % LAB HEMETOLOGY METHOD 07/17/2024 10:22 AM [facility] NRBC Absolute 0.00 <0.10 K/mcL LAB HEMETOLOGY METHOD 07/17/2024 10:22 AM [facility] Neutrophils Relative 82.2 % LAB HEMETOLOGY METHOD 07/17/2024 10:22 AM [facility] Lymphocytes Relative 10.7 % LAB HEMETOLOGY METHOD 07/17/2024 10:22 AM [facility] Monocytes Relative 2.6 % LAB HEMETOLOGY METHOD 07/17/2024 10:22 AM [facility] Eosinophils Relative 3.8 % LAB HEMETOLOGY METHOD 07/17/2024 10:22 AM [facility] Basophils Relative 0.2 % LAB HEMETOLOGY METHOD 07/17/2024 10:22 AM [facility] Immature Granulocytes Relative 0.5 % LAB HEMETOLOGY METHOD 07/17/2024 10:22 AM [facility] Neutrophils Absolute 9.79(H) 1.50 - 7.00 K/mcL LAB HEMETOLOGY METHOD 07/17/2024 10:22 AM [facility] Lymphocytes Absolute 1.27 1.00 - 5.00 K/mcL LAB HEMETOLOGY METHOD 07/17/2024 10:22 AM [facility] Monocytes Absolute 0.31 0.20 - 1.00 K/mcL LAB HEMETOLOGY METHOD 07/17/2024 10:22 AM [facility] Eosinophils Absolute 0.45 0.00 - 0.50 K/mcL LAB HEMETOLOGY METHOD 07/17/2024 10:22 AM [facility] Basophils Absolute 0.02 0.00 - 0.20 K/mcL LAB HEMETOLOGY METHOD 07/17/2024 10:[address] [facility] Immature Granulocytes Absolute 0.06(H) 0.00 - 0.03 K/mcL LAB HEMETOLOGY METHOD 07/17/2024 10:[address] [facility] Blood Venous blood specimen / Unknown Venipuncture / Unknown 07/17/2024 5:55 AM EST 07/17/2024 9:08 AM EST Rey Escalante MD LAB BLOOD ORDERABLES [facility] [address] [place] [address], documented in this encounter Visit Diagnoses Diagnosis [...] documented as of this encounter Care Teams Fur Tailor Relationship Specialty Start Date End Date Dale Pinto MD [address] [place] [address] PCP - General Internal Medicine 11/10/21 documented as of this encounter
--- OUTSIDE RECORDS SUMMARY | 2024-10-01 06:23 | XMS_ITS | Encounter Summary ---
Author Organization [facility] Address [address] [place] [address] Care Team Providers Care Portrait Photographer Name Role Phone Dale Pinto MD Primary Care Provider [phone] Encounter Details Date Type Department Care Team (Late st Contact Info) Description 07/24/2024 Lab Requisition [facility] - Main Lab [address] [facility] [place] [phone] Rey Escalante MD [address] [place] [address] Elevated white blood cell count, unspecified Social [...] LAB CHEMISTRY METHOD 07/24/2024 1:18 PM EST [facility] Blood Venous blood specimen / Unknown Venipuncture / Unknown 07/24/2024 12:10 PM EST 07/24/2024 12:43 PM EST Rey Escalante MD LAB BLOOD ORDERABLES [facility] [address] [place], [place] [address] [phone] documented in this encounter Visit Diagnoses Diagnosis [...] documented as of this encounter Care Teams Portrait Photographer Relationship Specialty Start Date End Date Dale Pinto MD [address] [place] [address] PCP - General Internal Medicine 11/10/21 documented as of this encounter
--- OUTSIDE RECORDS SUMMARY | 2024-10-01 06:23 | XMS_ITS | Encounter Summary ---
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 (CMS/[facility]) Procedures [facility] IP/OBS CARE INITIAL MODERATE LEVEL PER DAY Dennis Hagan MD [address] [place] [address] [facility] [address] [address] Referral ID Status Reason Start Date Expiration Date Visits Re quested Visits Authorized [id number] 1 1 Encounter Details Date Type Department Care Team (Latest Contact Info) Description 09/17/2024 3:44 PM EST - 09/27/2024 9:10 AM EST Hospital Encounter [facility] Urology Unit [address] [place] [address] Rich Varner MD [address] [place] [address] Dennis Hagan MD [address] [place] [address] Bernardo Alcantara MD [address] [place], [place] [id number] Nancy Kc MD [address] [place] [address] 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 HCP, winston Lopez worked with CM to arranged hospice [...] Your Medications These medications were sent to [facility]/pharmacy #[id number] - [facility] [address] [address] acetaminophen 500 mg tablet You can get [...] Units Date/Time MR Thoracic Spine wo Contrast [[id number]] Collected: 09/21/24826 Order Status: Completed Updated: 09/21/24 [...] Signed Date: 09/21/2024 08:47 ET Workstation ID: [id number] Transcribed By: Self Edit Transcribed Date: 09/21/2024 08:27 ET US Extremity Nonvascular Limited Right [[id number]] Resulted: 09/18/24 1138 Order Status: No result Updated: 09/18/24 1205 US Asp Abscess/Hematoma/Bulla/Cyst [[id number]] Collected: 09/18/24 1304 Order Status: Completed Updated: [...] Date: 09/18/2024 13:04 ET Assigned Physician: Summer Sepulvead Reviewed and Electronically Signed By: Summer Sepulveda Signed Date: 09/19/2024 14:55 ET Workstation ID: [id number] Transcribed By: Self Edit Transcribed Date: 09/18/2024 13:09 ET Resident/PA/ROLLER LEVELER: Rosaura Quintanilla CT Chest/Abdomen/Pelvis w Contrast [[id number]] Collected: 09/18/24 1143 Order Status: Completed Updated: [...] Signed Date: 09/18/2024 11:58 ET Workstation ID: [id number] Transcribed By: Self Edit Transcribed Date: 09/18/2024 11:52 ET XR Chest 1 View [[id number]] Collected: 09/18/24822 Order Status: Completed Updated: 09/18/24829 [...] Signed Date: 09/18/2024 08:25 ET Workstation ID: [id number] Transcribed By: Self Edit Transcribed Date: 09/18/2024 08:[address] Upper Extremity w Contrast Right [[id number]] Collected: 09/17/242133 Order Status: Completed Updated: 09/17/242134 [...] by Dr. Mcdowell - Follow up with [facility] in 2 weeks. [...] to keep yourself hydrated. - Please call [facility] with any questions or concerns. [facility] [address] [place] [address] documented in this encounter Medications at Time [...] Daily Amount: 2 mg 12 each 09/27/2024 morphine 100 mg/5 mL (20 mg/mL) concentrated solutionIndications:Art hritis of right shoulder due to other bacteria ([facility]),Bacteremia,HF rEF (heart failure with reduced ejection fraction) ([facility]) Take 0.25 mL (5 mg total) by [...] Daily Amount: 2 mg 12 each 09/27/2024 acetaminophen (TYLENOL) 500 mg tablet Take 2 tablets (1,000 mg total) by mouth every 8 (eight) hours for 10 days. 30 tablet 09/27/2024 10/07/2024 morphine 100 mg/5 mL (20 mg/mL) concentrated solutionIndications:Arth ritis of right shoulder due to other bacteria ([facility]/HCC),Bacteremia,HFr EF (heart failure with reduced ejection fraction) (CMS/[facility]) Take 0.25 mL (5 mg total) by mouth every 4 (four) hours if needed for severe pain or moderate pain for up to 3 days. Max Daily Amount: 30 mg 15 mL 09/27/2024 09/30/2024 documented in this encounter Discharge Disposition Disposition Code Departure Means Destination Comment s Hospice/Medical Facility Ambulance documented in this encounter Progress Notes * Tia Carrington RN - 09/27/2024 7:44 AM EST 09/27/24 0743 Initial Transition Plan Initial Transition Plan Hospice Facility ([facility]) Discharge Planning Contact (Name, Phone #, Relationship) for DC Planning John Faye Emergency Contact [phone] Anticipated Discharge Needs Discipline following for SNF placement Dietary Service AideLife Skills Educator Transportation at discharge Ambulance Company providing transportation Baljinder What day is the transport expected? 09/27/24 What time is the transport expected? 0900 Final Discharge Disposition Hospice Facility ICC updated [facility] [employer], Bedside team messaged, John Faye, called and [...] Shift Summary: Pt refusing all medication. Pt talent advisor, repositioned for comfort. * Delvis Eden RN [...] to her son, MD notified and diet order/BOOTH MANAGER eval ordered. Pt took small amounts of soup, a few bites of ice cream and water & gingerale this shift. Son Ovi and Daughter Daniela updated. * Nancy Kc MD - 09/26/2024 3:54 PM EST Images from the original note were not included. [facility] PROGRESS NOTE Date: 09/26/2024 Author: Nancy Kc MD Patient ID: Louann Barrientos is a 74 y.o. female : 1950 MR#: [id number] SUBJECTIVE CC: Here with R septic shoulder, bacteremia. Currently FLOORMAN. She is more alert today, aware that [...] was able to help her drink. Later BOOTH MANAGER eval was requested and diet ordered. [...] planned, reviewed with CM. HCP -son John [phone] - I met him and his sister on 09/24, care reviewed. * Tia Carrington RN - 09/26/2024 3:43 PM EST 09/26/24 1542 Initial Transition Plan Initial Transition Plan Hospice Facility ([facility]) Anticipated Discharge Needs Discipline following for SNF placement Dietary Service AideLife Skills Educator Transportation at discharge Amb[facility] Company providing transportation [place] What day is the transport expected? 09/27/24 What time is the transport expected? 0900 Final Discharge Disposition Hospice Facility [facility] planned for 09/27 @ 9AM after Pt's son delivers co-pay down payment to [employer] after work tonight. * Holli Stinson, JHON - 09/26/2024 2:55 PM EST Images from the original note were not included. Speech Language Pathology [facility] BOOTH MANAGER BEDSIDE SWALLOW EVALUATION NAME: Louann Barrientos DATE OF : 1950 ROOM: [address] [place] [address] BOOTH MANAGER Received On: 09/26/24 Veneer Drier Tailer Required: No TIME IN: 1400 TIME OUT: [...] of right shoulder due to other bacteria ([facility]) Date Noted: 09/17/2024 Resolved Problems: * No resolved hospital problems. 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 PAST MEDICAL HISTORY: Past Medical History: Diagnosis Date Raynaud disease DX:Raynaud disease Rheumatoid arthritis ([facility]) DX:Rheumatoid arthritis ([facility]) Sicca ([facility]) DX:Sicca ([facility]) PAST SURGICAL HISTORY: Past Surgical History: Procedure Laterality Date LEG SURGERY Left 11/16/2022 PROCEDURE:LEG SURGERY;COMMENT:Procedure: I&D LEFT LOWER EXTREMITY; Surgeon: Robbie Villagran MD;Location: MAIN OPERATING ROOM; Service: Orthopedic Trauma; Laterality: Left; OTHER SURGICAL HISTORY Left 10/16/2022 PROCEDURE:ORIF FEMORAL SHAFT FRACTURE W/ PLATES AND SCREWS;COMMENT:Procedure: REPAIR NONUNION LEFT FEMUR/ORIF LEFT FEMUR; Surgeon: Robbie Villagran MD; Location: MAIN OPERATING ROOM; Service: Orthopedic Trauma; Laterality: [...] Signed Date: 09/18/2024 08:25 ET Workstation ID: [id number] Transcribed By: Self Edit Transcribed Date: 09/18/2024 [...] Signed Date: 08/13/2024 10:08 ET Workstation ID: [id number] Transcribed By: Self Edit Transcribed Date: 08/13/2024 10:[address] No results found for this or any previous visit. NIH Stroke Scale: ALLERGIES: Allergies Allergen Reactions Other Swelling Styrofoam Penicillins Pineapple Per [facility] record, pt has an allergy to pineapple, [...] PO Recommended Medication Administration: Crushed (in puree) BOOTH MANAGER ASSESSMENT: BOOTH MANAGER Assessment Results: Swallowing impairments Dysphagia Diagnosis: (oropharyngeal dysphagia) Evaluation/Treatment Tolerance: Patient limited by fatigue Medical Staff Made Aware: Yes Comments: Disucessed w/ RN and message sent to provider CURRENT DIET: Dietary Orders (From admission, onward) Start Ordered 09/26/24 1113 Adult diet [facility]; General, Modified Consistency Options for Liquids and Solids; Regular; IDDSI Level 5 Minced & Moist Diet effective now Question Answer Comment Location [facility] Diet Type (req) General Diet Type (req) Modified Consistency Options for Liquids and Solids General Diet Regular Modified Consistency Options for Liquids and Solids IDDSI Level 5 Minced & Moist 09/26/24 1113 PLAN OF CARE BOOTH MANAGER PLAN Treatment/Interventions: Swallow function BOOTH MANAGER Plan: Skilled BOOTH MANAGER BOOTH MANAGER Frequency: 2-5 days per week BOOTH MANAGER Treatments per day: 1 time per day BOOTH MANAGER - Evaluation Status: Complete Diet Recommendations: Full liquid diet DISCHARGE RECOMMENDATIONS Ongoing Skilled Speech-Language Pathology (BOOTH MANAGER) services at next level of care. EDUCATION Education Documentation Modified Diet Training, taught by JHON Cain at 09/26/2024 2:54 PM. Learner: Patient Readiness: [...] EST I attest that I, Norah Munroe M.S.,[employer] [facility]-BOOTH MANAGER, was physically involved in the ongoing [...] 11:19 AM EST MINERVA: TAMIKO montalvo Barriers: [facility] given contact info of family and asked to contact them to arrange payment, [employer] trying to get in contact w Pt's deputy commonwealth's attorney to arrange payment and has been unsuccessful. [facility] called John Barrientos, Son, Emergency Contact, to see if Pt has a checkbook and can sign a check to pay for deposit to [facility]. Ovi says she does and can bring it over later tonight after work. Ovi is under the impression only a bank check will suffice. [facility] messaged [employer] Liaison to see if a personal check is acceptable to cover deposit. Liaison is checking w [employer] admini strators to confirm acceptance of personal check. [employer] asked if [facility] has a legal team that can assist w DPOA? SW consulted. PER YURIY, DPOA is for health care, if they need to navigate finances they need just a regular Power of [employer], they need to ask an deputy commonwealth's attorney to do one. I could try to find some elder law attorneys toprovide but any deputy commonwealth's attorney can draw one. Info forwarded to [facility]. Perhaps Pt's existing Atty can assist. * Khadijah Son RN - 09/26/2024 1:51 AM EST Goals: Problem: Falls: Fall Risk (Adult IP BH) Goal: (Goal) Patient will experience maximum safety and reduce risk for falls. 09/26/2024 0151 by Khadijah Chaudhari RN Outcome: Progressing 09/26/2024 0150 by Khadijah Chaudhari RN Outcome: Progressing Goal: Patient will not fall or injure themselves during hospitalization. 09/26/2024 0151 by Khadijah Chaudhari RN Outcome: [...] a 74 y.o. female : 1950 MR#: [id number] SUBJECTIVE CC: Here with R septic shoulder, bacteremia. Currently FLOORMAN. She is somnolent, opens eyes on command [...] Signed Date: 09/21/2024 08:47 ET Workstation ID: [id number] Transcribed By: Self Edit Transcribed Date: 09/21/2024 [...] planned, reviewed with CM. HCP -son John [phone] - I met him and his sister on 09/24, care reviewed. * Tia Carrington RN - 09/25/2024 2:58 PM EST [facility] s/w John, HCP and discussed KYLEE. In agreement w/ [facility] pending financial arrangements with Pt's deputy commonwealth's attorney. [facility] called [facility] animal care service worker to see if arrangements have been completed and learned theyhave not heard back from [employer]. * Gertrude Mackenzie - 09/25/2024 2:26 PM [...] have facilitys and prices. Fely to call [facility] tomorrow with choice, he is aware he [...] a 74 y.o. female : 1950 MR#: [id number] SUBJECTIVE CC: Here with R septic shoulder, bacteremia. Currently FLOORMAN. Seen first time. She is somnolent, denies [...] Signed Date: 09/21/2024 08:47 ET Workstation ID: [id number] Transcribed By: Self Edit Transcribed Date: 09/21/2024 [...] -DNR/DNI Dispo -pending placement HCP -winston Lopez [phone] * Becky Busch RN - 09/24/2024 11:51 AM EST CM Progress Note MINERVA: 09/26 Barriers: Hospice informational with [facility] 09/24 pm, need to give rates of accepting facilitys to family and they will need to bring check to facility if they choose to go the hospice route. Plan: SNF ? On hospice, family meeting with [facility] Tuesday pm-patient came from [facility] and is a private pay bedhold. * JAKE Gan - 09/24/2024 11:43 AM EST Orthopedic trauma surgery progress note for right shoulder septic arthritis s/p arthroscopic debridement right shoulder. Chief Complaint Patient presents with Blood Infection . Subjective Louann has been made FLOORMAN. Found resting comfortable in bed. Assessment Septic arthritis R shoulder s/p arthroscopic debridement R shoulder Bacteremia Patient made FLOORMAN. Reinforce and change right shoulder dressing prn. [...] not able to take her home. Eloise [phone], daughter Daniela [phone] Family has chosen [facility] in [place]. Info sent to to contact son Fely * JAKE Pyle - 09/23/2024 11:02 AM EST Louann Barrientos 09/17/[birth year] 74 y.o. [id number] Bernardo Alcantara MD SUBJECTIVE : Staff reported [...] 104 105 102 CO2 mmol/L 25 22 23 ANION GAP 9 14* [...] right shoulder arthroscopic irrigation and debridement on Ale 15. Tissue culture showing: MSSA Today, reporting denied right shoulder pain. Patient has been refusing care including imaging, p.o. medications, nutrition. Patient's son updated over phone. Later on, patient and patient's son have decided for FLOORMAN. ICC updated. Pending disposition. Bacteremia Severe sepsis [...] medication including beta-stacey. This morning, patient made FLOORMAN. Case discussed with Dr Alcantara Time spent: 60 minutes. Disclaimer: Speech recognition software was utilized to dictate portions of this document. Errors in chiller hand may be present. Please call / cortext [...] of pain medications to the patient. * Abran Samayoa-Sanjana, PA - 09/22/2024 11:41 AM EST Louann Barrientos 09/17/[birth year] 74 y.o. [id number] Bernardo Alcantara MD SUBJECTIVE : Reporting inability [...] dictate portions of this document. Errors in chiller hand may be present. Please call / cortext [...] Signed Date: 09/21/2024 08:47 ET Workstation ID: [id number] Transcribed By: Self Edit Transcribed Date: 09/21/2024 [...] Signed Date: 09/19/2024 14:55 ET Workstation ID: [id number] By: Self Edit Transcribed Date: 09/18/2024 13:09 ET Resident/PA/ROLLER LEVELER: Rosaura Quintanilla Transthoracic echocardiogram (TTE) complete with [...] Signed Date: 09/18/2024 11:58 ET Workstation ID: [id number] Transcribed By: Self Edit Transcribed Date: 09/18/2024 [...] Signed Date: 09/18/2024 08:25 ET Workstation ID: [id number] Transcribed By: Self Edit Transcribed Date: 09/18/2024 [...] medical history of Raynaud disease, Rheumatoid arthritis ([facility]), and Sicca ([facility]).. The patient was admitted to the hospital [...] BMP and fax to my office at [phone] Isolation: none I personally spent 35 minutes [...] OM R shoulder, washout 09/19 Dispo: from [facility] Bed hold * JAKE Pyle - 09/21/2024 12:57 PM EST Louann Barrientos 09/17/[birth year] 74 y.o. [id number] Bernardo Alcantara MD SUBJECTIVE : Reporting inability [...] dictate portions of this document. Errors in chiller hand may be present. Please call / cortext [...] Elmo, PT - 09/20/2024 1:51 PM EST [facility] Physical Therapy Evaluation & Treatment PT Discharge Recommendations: group home facility placement Staff Recommendations for safe patient [...] is a 74 y.o. female admitted to [facility] on 09/17/2024. 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 ([facility]) Past Medical History: Diagnosis Date Raynaud disease DX:Raynaud disease Rheumatoid arthritis ([facility]/HCC) DX:Rheumatoid arthritis (HCC) Sicca ([facility]) DX:Sicca ([facility]) Past Surgical History: Procedure Laterality Date LEG SURGERY Left 11/16/2022 PROCEDURE:LEG SURGERY;COMMENT:Procedure: I&D LEFT LOWER EXTREMITY; Surgeon: Robbie Villagran MD;Location: MAIN OPERATING ROOM; Service: Orthopedic Trauma; Laterality: Left; OTHER SURGICAL HISTORY Left 10/16/2022 PROCEDURE:ORIF FEMORAL SHAFT FRACTURE W/ PLATES AND SCREWS;COMMENT:Procedure: REPAIR NONUNION LEFT FEMUR/ORIF LEFT FEMUR; Surgeon: Robbie Villagran MD; Location: MAIN OPERATING ROOM; Service: Orthopedic Trauma; Laterality: Left; TOTAL HIP ARTHROPLASTY Right PROCEDURE:TOTAL HIP ARTHROPLASTY Social History Home Living Environment: Home Living Type of Home: [facility] Lives With: Alone Home Adaptive Equipment: Walker - rolling Home Layout: One level Home Access: Level entry Prior Function Level of Lisle: Independent with mobility and functional transfers Ambulation [...] Home Subacute rehab Prior Function Level of [place] Needs assistance with functional transfers Ambulation Status [...] 1 time per day PT Discharge Recommendations group home facility placement PT - Evaluation Status Complete [...] is a 74 y.o. 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 Pt presents with decreased BLE strength, balance deficits, decreased activity tolerance, and far below functional baseline. Pt performed bed mobility Dependent, Bedrail, HOB elevated, and Therapist assist, Transfers with Dependent and x2, None . Pt will benefit from skilled acute PT during hospital stay to improve the deficits listed above and optimize function. PT recommends group home facility placement when medically stable for safe [...] Pyle - 09/20/2024 1:08 PM EST Louann Vila Iliana 09/17/[birth year] 74 y.o. [id number] Bernardo Alcantara MD SUBJECTIVE : No shoulder [...] dictate portions of this document. Errors in chiller hand may be present. Please call / cortext [...] Maya, OT - 09/20/2024 11:00 AM EST [facility] Occupational Therapy Evaluation DATE: September TIME IN: 1100 TIME OUT: 1145 Pt: Louann Barrientos ROOM: [address] [place] [address] Discharge Recommendation: group home facility Equipment Recommendation: walker Staff recommendations for [...] is a 74 y.o. female admitted to [facility] on 09/17/2024. Occupational Therapy evaluation and treatment ordered to assess ADL independence, safety, and functional mobility for discharge planning. 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 ([facility]/HCC) Past Medical History: Diagnosis Date Raynaud disease DX:Raynaud disease Rheumatoid arthritis (CMS/HCC) DX:Rheumatoid arthritis (HCC) Sicca (CMS/HCC) DX:Sicca (HCC) Past Surgical History: Procedure Laterality Date LEG SURGERY Left 11/16/2022 PROCEDURE:LEG SURGERY;COMMENT:Procedure: I&D LEFT LOWER EXTREMITY; Surgeon: Robbie Villagran MD;Location: MAIN OPERATING ROOM; Service: Orthopedic Trauma; Laterality: Left; OTHER SURGICAL HISTORY Left 10/16/2022 PROCEDURE:ORIF FEMORAL SHAFT FRACTURE W/ PLATES AND SCREWS;COMMENT:Procedure: REPAIR NONUNION LEFT FEMUR/ORIF LEFT FEMUR; Surgeon: Robbie Villagran MD; Location: MAIN OPERATING ROOM; Service: Orthopedic Trauma; Laterality: [...] Access Level entry Prior Function Level of Lisle Independent with mobility and functional transfers Ambulation [...] - Evaluation Status Complete OT Discharge Recommendations group home facility placement (d/c to next level of [...] - Evaluation Status: Complete OT Discharge Recommendations: group home facility placement (d/c to next level of [...] agreed to by Dr. Jeremias Chaudhry PA-C * Ruth Mars RN - 09/19/2024 2:50 PM EST 09/19/24 1447 Initial Transition Plan Initial Transition Plan (Pt is from [facility]) Discharge Planning Living Arrangements Other (Comment) Type of Residence Other (Comment) (Pt comes from [facility]) Assistive Devices Walker;Wheelchair Support Systems Children;Friends;Home care staff Anticipated Discharge Needs Discipline following for SNF placement Dietary Service Aide [facility] spoke with pt's son John. John reported pt comes from [facility] and has been in and outof rehab facilities recently. John reported he received a phone call from [facility] requestingpayment to keep her bed. John requested to get a medical update from the provider and also reported he would like to speak with his mother regarding this. [facility] notified provider of request from jewel jeronimo for an update. * JAKE Pyle - 09/19/2024 1:46 PM EST Louann Barrientos 09[birth year]17[birth year] 74 y.o. [id number] Bernardo Alcantara MD SUBJECTIVE : Patient seen [...] anxiety who presented to the ED from [facility] for right shoulder pain with leukocytosis. On [...] dictate portions of this document. Errors in chiller hand may be present. Please call / cortext [...] CC: Right shoulder septic arthritis HPI: 74-year-old [id number] female R. A. 09/17/2024 admitted to [facility] for right shoulder pain Imaging study [...] onward) Start Ordered 09/19/24 0757 Adult diet [facility]; General, Fluid Restriction, Cardiac; Regular; Fluid Restriction 1500 mL; Sodium 2 gm Restriction Diet effective now Question Answer Comment Location [facility] Diet Type (req) General Diet Type (req) Fluid Restriction Diet Type (req) Cardiac General Diet Regular Fluid Restrictions Fluid Restriction 1500 mL Diet Type (cardiac) Sodium 2 gm Restriction 09/19/24 0757 History of presenting illness: Patient is a 74 y.o. female with a history of Past Medical History: Diagnosis Date Raynaud disease DX:Raynaud disease Rheumatoid arthritis ([facility]/HCC) DX:Rheumatoid arthritis (HCC) Sicca (CMS/HCC) DX:Sicca (HCC) Past Surgical History: Procedure Laterality Date LEG SURGERY Left 11/16/2022 PROCEDURE:LEG SURGERY;COMMENT:Procedure: I&D LEFT LOWER EXTREMITY; Surgeon: Robbie Villagran MD;Location: MAIN OPERATING ROOM; Service: Orthopedic Trauma; Laterality: Left; OTHER SURGICAL HISTORY Left 10/16/2022 PROCEDURE:ORIF FEMORAL SHAFT FRACTURE W/ PLATES AND SCREWS;COMMENT:Procedure: REPAIR NONUNION LEFT FEMUR/ORIF LEFT FEMUR; Surgeon: Robbie Villagran MD; Location: MAIN OPERATING ROOM; Service: Orthopedic Trauma; Laterality: Left; TOTAL HIP ARTHROPLASTY Right PROCEDURE:TOTAL HIP ARTHROPLASTY admitted 09/17/2024 with Septic arthritis ([facility]). Food/Nutrition History: Self-selected diet(s) followed: Pt sleeping soundly this morning on attempted interview and again this evening. Pt had irrigation and debridement of shoulder today, diet resumed but pt appears too sleepy to consume dinner. Appetite SUPERVISOR DITCHING: Other (Comment) (limited data) Weight History: Wt Readings from Last 10 Encounters: 09/19/24 45.8 kg (101 lb) 08/14/24 47.7 kg (105 lb 3.2 oz) Subjective Assessment: Pt presents with septic arthritis, status post irrigation and debridement. Diet resumed. Has previously reported to this life underwriter that she has burning mouth syndrome and [...] Energy Estimated Needs: 30-35 kcal/kg/day for wounds, 9169-9151 kcal/day. 1.2 up to 1.5 gm/kg/day, 55-69 gm/day, fluid 25-30 ml/kg/day, 0904-1439 ml /day Height: 154.9 cm (60.98 ) Temp: 36.3 ??C (97.3 ??F) Food/Nutrition-Current Status: Intake Type: P.O. Current Diet Status: Appropriate Current Supplement Status: Other (Comment) (Not ordered, Pt known to this life underwriter has declined supplements at times in the [...] EST Louann Barrientos 09/17/2024 1950 74 y.o. [id number] Bernardo Alcantara MD SUBJECTIVE : Confused patient. [...] dictate portions of this document. Errors in chiller hand may be present. 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 ([facility]) 09/17/2024 HFrEF (heart failure with reduced ejection fraction) ([facility]) 08/11/2024 NSTEMI (non-ST elevated myocardial infarction) ([facility]) 08/09/2024 Wound History: Nutritional Status: Patient is [...] Tissue Assessment Red 09/18/24 0815 Selena-Wound Assessment [place] 09/18/24 0328 Dressing Status Other (Comment) 09/18/24 0328 Wound Moisture Associated Dermatitis 09/18/24 Breast Lower;Right (Active) Wound Image 09/18/24 1059 Wound Bed Tissue Assessment Red;Excoriated 09/18/24 0815 Selena-Wound Assessment [place] 09/18/24 0329 Dressing Status Other (Comment) 09/18/24 0329 Wound Pressure Injury 09/18/24 Toe D2, Second Anterior;Right (Active) Wound Image 09/18/24 1051 Wound Bed Tissue Assessment Dry;[place] 09/18/24 0815 Selena-Wound Assessment Dry 09/18/24 0330 [...] it will hurt my skin . This life underwriter sat with patient for 30 min and educated her on her ordered medications and antibiotics, as well as the possible side effects, pt refused all medications. This life underwriter explained to the patient the significance of the antibiotics because of her elevated WBC and her infection and reminded her the infection could get worse without her antibiotics to which she replied I know, I will take them tomorrow . Pt made aware that this life underwriter notified provider regarding refusal to whichpatient stated [...] tonight: CT Upper Extremity w Contrast Right [[id number]]Collected: 09/17/242133Order Status: CompletedUpdated: 09/17/242134Narrative: Exam: Contrast-enhanced CT [...] infectious concerns): [] Yes / [] No Residence Leasing Agent: [] Yes / [] No If YES, Cardiac Rhythm: [] NSR, [] SB, [] ST, [] A-FIB, [] A-Flutter, [] Pacemaker, [] 1st Degree HB, [] 2nd Degree HB, [] 3rd Degree HB Reason for Residence Leasing Agent: VS: Visit Vitals BP (!) 143/62 (BP [...] see chart Submitted by and Phone Extension: [phone] * Gabriel Pang RN - 09/17/2024 3:45 PM EST Patient coming from [facility] with elevated wbc. Unknown source * Rich Varner MD - 09/17/2024 3:37 PM EST Emergency Medicine Note Patient Name: Louann Barrientos Initial Evaluation: 09/17/2024 : 1950 Patient's PCP: Dale Pinto MD Emergency Physician: Rich Varner MD History of Present Illness Chief Complaint: Chief Complaint Patient presents with Blood Infection HPI: 74-year-old female with history of rheumatoid arthritis sent by Dr. Gamez at [facility] with concerns about possible right shoulder [...] LEFT LOWER EXTREMITY; Surgeon: Robbie Villagran MD;Location: MAIN OPERATING ROOM; Service: Orthopedic Trauma; Laterality: Left; OTHER SURGICAL HISTORY Left 10/16/2022 PROCEDURE:ORIF FEMORAL SHAFT FRACTURE W/ PLATES AND SCREWS;COMMENT:Procedure: REPAIR NONUNION LEFT FEMUR/ORIF LEFT FEMUR; Surgeon: Robbie Villagran MD; Location: MAIN OPERATING ROOM; Service: Orthopedic Trauma; Laterality: [...] Detected Narrative: Testing was performed using the [employer] Respiratory Pathogen PCR Assay. All results must [...] Procedure Abnormality Status --------- ------ CBC auto differential[[id number]] In process Please view results for these tests on the individual orders. COMPREHENSIVE METABOLIC PANEL URINALYSIS WITH REFLEX MICROSCOPIC AND CULTURE Narrative: The following orders were created for panel order Urinalysis with reflex microscopic and culture. 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 Differential to include traumatic, rheumatoid arthritis, septic arthritis, strain, contusion Plan was already set in place prior to arrival. She is to get a CAT scan of her right shoulder and admission to [place] to consider antibiotics after cultures. Procedures Procedures Diagnosis 1. 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 [facility] Please contact author [JAKE Mota] via [employer]/eCert. Patient: Louann Barrientos Admission Date/Time: 09/17/2024 3:44 PM : 1950 [74 y.o.] Patient's PCP: Dale Pinto MD Attending Provider: Rich Varner MD;Nerm* CHIEF COMPLAINT: Right shoulder septic arthritis r/o HPI: 74-year-old female with PMH of rheumatoid arthritis, HFrEF, Sjogren's syndrome, chronic anemia, Raynaud's syndrome and anxiety presents to the ED from [facility] for concern for right shoulder septic [...] the medial aspect She states a nurse life enrichment assistant was helping her stand and had [...] arthritis r/o [facility] for concern of elevated WBC 19k and XR that showed an effusion of the right shoulder She did report a few days ago having a UTILITY BAGGER help her w/ a transfer which resulted [...] twice daily FULL CODE HCP: winston Lopez [phone] PPX: Pneumoboots Case and plan discussed with: [...] in this encounter Consult Notes * Mary InterianojerichoLulu, RD - 09/21/2024 4:24 PM ESTAssociated Order(s): [...] Dietary nutrition supplements Three times daily (TID); [facility]; Standard Small Volume Continuous Comments: Vary flavor Question Answer Comment Frequency Three times daily (TID) Location [facility] Supplements Standard Small Volume 09/21/24 0958 09/19/24 0757 Adult diet [facility]; General, Fluid Restriction, Cardiac; Regular; Fluid Restriction 1500 mL; Sodium 2 gm Restriction Diet effective now Question Answer Comment Location [facility] Diet Type (req) General Diet [...] LEFT LOWER EXTREMITY; Surgeon: Robbie Villagran MD;Location: MAIN OPERATING ROOM; Service: Orthopedic Trauma; Laterality: Left; OTHER SURGICAL HISTORY Left 10/16/2022 PROCEDURE:ORIF FEMORAL SHAFT FRACTURE W/ PLATES AND SCREWS;COMMENT:Procedure: REPAIR NONUNION LEFT FEMUR/ORIF LEFT FEMUR; Surgeon: Robbie Villagran MD; Location: MAIN OPERATING ROOM; Service: Orthopedic Trauma; Laterality: Left; TOTAL HIP ARTHROPLASTY Right PROCEDURE:TOTAL HIP ARTHROPLASTY admitted 09/17/2024 with Septic arthritis ([facility]). Food/Nutrition History: Self-selected diet(s) followed: PT provided only a breif interview before stating she was not up for talking this afternoon. Per [employer] record, pt had allergy to pineapple (entered) [...] report that she likes Big Macs. Appetite SUPERVISOR DITCHING: Other (Comment) (limited data) Weight History: Wt [...] Energy Estimated Needs: 30-35 kcal/kg/day for wounds, 4675-6076 kcal/day. 1.2 up to 1.5 gm/kg/day, 55-69 gm/day, fluid 25-30 ml/kg/day, 6686-7736 ml /day Height: 154.9 cm (60.98 ) Temp: 36.3 ??C (97.3 ??F) Food/Nutrition-Current Status: Intake Type: P.O. Current Diet Status: Other (Comment) (Po is poor, pt may benefit from liberal diet) Current Supplement Status: Other (Comment) (Not ordered, Pt known to this life underwriter has declined supplements at times in the [...] with RN. and Discussed with provider(s) via [employer] Secure Chat/Haiku regarding supplement. Monitoring/Evaluation: Fluid/Beverage Intake, [...] medical history of Raynaud disease, Rheumatoid arthritis ([facility]), and Sicca ([facility]).. The patient was admitted to the hospital [...] Date Raynaud disease DX:Raynaud disease Rheumatoid arthritis ([facility]) DX:Rheumatoid arthritis ([facility]) Sicca ([facility]) DX:Sicca ([facility]) Surgical History: Past Surgical History: Procedure Laterality Date LEG SURGERY Left 11/16/2022 PROCEDURE:LEG SURGERY;COMMENT:Procedure: I&D LEFT LOWER EXTREMITY; Surgeon: Robbie Villagran MD;Location: MAIN OPERATING ROOM; Service: Orthopedic Trauma; Laterality: Left; OTHER SURGICAL HISTORY Left 10/16/2022 PROCEDURE:ORIF FEMORAL SHAFT FRACTURE W/ PLATES AND SCREWS;COMMENT:Procedure: REPAIR NONUNION LEFT FEMUR/ORIF LEFT FEMUR; Surgeon: Robbie Villagran MD; Location: MAIN OPERATING ROOM; Service: Orthopedic Trauma; Laterality: [...] mouth 2 (two) times a day.11/19/22 Historical Provider, furosemide (LASIX) 20 mg tablet Take 1 [...] 24 hours: Temp: 38.8 ??C (101.8 ??F) (01/14 0954) Heart Rate: 100 (09/18 953) Resp: 24 [...] 09/18/2024 318 QTc 09/18/2024 449 P Wave [place] 09/18/2024 58 R [place] 09/18/2024 6 T [place] 09/18/2024 29 ECG Interpretation 09/18/2024 Value:Sinus tachycardia [...] Signed Date: 09/18/2024 11:58 ET Workstation ID: [id number] Transcribed By: Self Edit Transcribed Date: 09/18/2024 [...] Signed Date: 09/18/2024 08:25 ET Workstation ID: [id number] Transcribed By: Self Edit Transcribed Date: 09/18/2024 08:23 ET Assessment/Plan Louann Barrientos is a 74 y.o. female who has a past medical history of Raynaud disease, Rheumatoid arthritis ([facility]), and Sicca ([facility]).. The patient was admitted to the hospital [...] demonstrated an effusion so patient presented to [facility] ED. On arrival, vitals were [...] medical history of Raynaud disease, Rheumatoid arthritis ([facility]), and Sicca ([facility]). PAST SURGICAL HISTORY She has a past [...] Signed Date: 09/18/2024 08:25 ET Workstation ID: [id number] Transcribed By: Self Edit Transcribed Date: 09/18/2024 [...] AM EST POCT GLUCOSE BLOOD Routine 09/20/2024 8 :01 AM EST C-REACTIVE PROTEIN Routine 09/20/2024 5: [...] LAB CHEMISTRY METHOD 09/24/2024 8:[address] [facility] Blood Venous blood specimen / Unknown Venipuncture / Unknown 09/24/2024 7:45 AM EST 09/24/2024 8:10 AM EST Freya JOSEPH LAB BLOOD ORDERABLES [facility]) [facility] [address] [place] [address], [place] [phone] * (ABNORMAL) POCT Glucose, blood (09/23/2024 11:09 AM EST) Glucose POCT 126(H) 70 - 100 mg/dL 09/23/2024 11:[address] [facility] Blood Capillary blood specimen / Unknown 09/23/2024 11:09 AM EST 09/23/2024 11:12 AM EST Brenardo Alcantara MD LAB POINT OF CARE TE ST DOCKED DEVICE UNSOLICITED RESULTS Performing Organization Address City/[facility]/ZIP Co de Phone Number [facility] [address] [place] [address], [place] [phone] * (ABNORMAL) POCT Glucose, blood (09/23/2024 8:21 AM EST) [facility] Glucose POCT 129(H) 70 - 100 mg/dL 09/23/2024 8:[address] [facility] Blood Capillary blood specimen / Unknown 09/23/2024 8:21 AM EST 09/23/2024 8:23 AM EST Bernardo Alcantara MD LAB POINT OF CARE TE ST DOCKED DEVICE UNSOLICITED RESULTS [facility] [address] [place] [address], [place] [phone] * (ABNORMAL) CBC auto differential (09/23/2024 5:30 AM EST) WBC 15.9(H) 4.8 - 10.8 K/[facility] LAB HEMETOLOGY METHOD 09/23/2024 6:[address] [facility] RBC 3.70(L) 3.80 - 4.80 /[facility] LAB HEMETOLOGY METHOD 09/23/2024 6:[address] [facility] Hemoglobin 8.3(L) 11.5 - 16.0 g/dL LAB HEMETOLOGY METHOD 09/23/2024 6:48 AM [facility] Hematocrit 28.0(L) 35.0 - 47.0 % LAB HEMETOLOGY METHOD 09/23/2024 6:48 AM [facility] MCV 75.1(L) 79.0 - 98.0 FL LAB HEMETOLOGY METHOD 09/23/2024 6:48 AM [facility] MCH 22.3(L) 27.0 - 32.0 pcg LAB HEMETOLOGY METHOD 09/23/2024 6:48 AM [facility] MCHC 29.6(L) 32.0 - 37.0 g/dL LAB HEMETOLOGY METHOD 09/23/2024 6:48 AM [facility] RDW 22.1(H) 11.0 - 15.0 % LAB HEMETOLOGY METHOD 09/23/2024 6:48 AM [facility] Platelets 652(H) 130 - 400 K/mcL LAB HEMETOLOGY METHOD 09/23/2024 6:48 AM [facility] MPV 9.4 7.0 - 11.0 FL LAB HEMETOLOGY METHOD 09/23/2024 6:48 AM [facility] NRBC 0.0 <1.0 % LAB HEMETOLOGY METHOD 09/23/2024 6:48 AM [facility] NRBC Absolute 0.00 <0.10 K/mcL LAB HEMETOLOGY METHOD 09/23/2024 6:48 AM [facility] Neutrophils Relative 84.7 % LAB HEMETOLOGY METHOD 09/23/2024 6:48 AM [facility] Lymphocytes Relative 7.5 % LAB HEMETOLOGY METHOD 09/23/2024 6:48 AM [facility] Monocytes Relative 6.5 % LAB HEMETOLOGY METHOD 09/23/2024 6:48 AM [facility] Eosinophils Relative 0.0 % LAB HEMETOLOGY METHOD 09/23/2024 6:48 AM [facility] Basophils Relative 0.2 % LAB HEMETOLOGY METHOD 09/23/2024 6:48 AM [facility] Immature Granulocytes Relative 1.1 % LAB HEMETOLOGY METHOD 09/23/2024 6:48 AM [facility] Neutrophils Absolute 13.49(H) 1.50 - 7.00 K/mcL LAB HEMETOLOGY METHOD 09/23/2024 6:48 AM [facility] Lymphocytes Absolute 1.20 1.00 - 5.00 K/mcL LAB HEMETOLOGY METHOD 09/23/2024 6:48 AM [facility] Monocytes Absolute 1.04(H) 0.20 - 1.00 K/mcL LAB HEMETOLOGY METHOD 09/23/2024 6:48 AM [facility] Eosinophils Absolute 0.00 0.00 - 0.50 K/mcL LAB HEMETOLOGY METHOD 09/23/2024 6:48 AM [facility] Basophils Absolute 0.03 0.00 - 0.20 K/mcL LAB HEMETOLOGY METHOD 09/23/2024 6:48 AM [facility] Immature Granulocytes Absolute 0.17(H) 0.00 - 0.03 K/mcL LAB HEMETOLOGY METHOD 09/23/2024 6:48 AM [facility] Blood Venous blood specimen / Unknown Venipuncture / Unknown 09/23/2024 5:30 AM EST 09/23/2024 6:32 AM EST Abran JOSEPH LAB BLOOD ORDERAB LES [facility] [address] [place] [address], * (ABNORMAL) Basic metabolic panel (09/23/2024 5:30 AM EST) Sodium 143 133 - 145 mmol/L LAB CHEMISTRY METHOD 09/23/2024 7:38 AM [facility] Potassium 3.8 3.5 - 5.5 mmol/L LAB CHEMISTRY METHOD 09/23/2024 7:38 AM [facility] Chloride 109 96 - 110 mmol/L LAB CHEMISTRY METHOD 09/23/2024 7:38 AM [facility] CO2 25 21 - 32 mmol/L LAB CHEMISTRY METHOD 09/23/2024 7:38 AM [facility] Anion Gap 9 3 - 11 LAB CHEMISTRY METHOD 09/23/2024 7:38 AM [facility] Glucose 114(H) 70 - 100 mg/dL LAB CHEMISTRY METHOD 09/23/2024 7:38 AM [facility] BUN 10 5 - 25 mg/dL LAB CHEMISTRY METHOD 09/23/2024 7:38 AM [facility] Creatinine 0.36(L) 0.50 - 1.10 mg/dL LAB CHEMISTRY METHOD 09/23/2024 7:38 AM [facility] eGFR 105 >=60 mL/min/1. 73m2 LAB CHEMISTRY METHOD 09/23/2024 7:38 AM [facility] Comment:Calculation based on the??Chronic Kidney Disease Epidemiology Collaboration (CKD-EPI) equation refit??without adjustment for race. BUN/Creatinine Ratio 27.8 LAB CHEMISTRY METHOD 09/23/2024 7:38 AM [facility] Calcium 8.5 8.5 - 10.5 mg/dL LAB CHEMISTRY METHOD 09/23/2024 7:38 AM [facility] Blood Venous blood specimen / Unknown Venipuncture / Unknown 09/23/2024 5:30 AM EST 09/23/2024 6:32 AM EST Abran JOSEPH LAB BLOOD ORDERAB LES Performing Organization Address [facility]/ZIP Co de Phone Number [facility] [address] [place] [address], [place] [phone] * POCT Glucose, blood (09/22/2024 9:12 PM EST) Glucose POCT 96 70 - 100 mg/dL 09/22/2024 9:[address] [facility] Blood Capillary blood specimen / Unknown 09/22/2024 9:12 PM EST 09/22/2024 9:14 PM EST Bernardo Alcantara MD LAB POINT OF CARE TE ST DOCKED DEVICE UNSOLICITED RESULTS Performing Organization Address [facility] Co de Phone Number [facility] [address] [place] [address], [place] [phone] * POCT Glucose, blood (09/22/2024 5:07 PM EST) Glucose POCT 100 70 - 100 mg/dL 09/22/2024 5:[address] [facility] Blood Capillary blood specimen / Unknown 09/22/2024 5:07 PM EST 09/22/2024 5:08 PM EST Bernardo Alcantara MD LAB POINT OF CARE TE ST DOCKED DEVICE UNSOLICITED RESULTS Performing Organization Address City/[facility]/ZIP Co de Phone Number [facility] [address] [place] [address], [place] [phone] * POCT Glucose, blood (09/22/2024 12:38 PM EST) Glucose POCT 92 70 - 100 mg/dL 09/22/2024 3:[address] [facility] Blood Capillary blood specimen / Unknown 09/22/2024 12:38 PM EST 09/22/2024 3:12 PM EST Bernardo Alcantara MD LAB POINT OF CARE TE ST DOCKED DEVICE UNSOLICITED RESULTS Performing Organization Address [facility]/ZIP Co de Phone Number [facility] [address] [place] [address], [place] [phone] * POCT Glucose, blood (09/22/2024 8:21 AM EST) [facility] Glucose POCT 85 70 - 100 mg/dL 09/22/2024 8:[address] [facility] Blood Capillary blood specimen / Unknown 09/22/2024 8:21 AM EST 09/22/2024 8:23 AM EST Bernardo Alcantara MD LAB POINT OF CARE TE ST DOCKED DEVICE UNSOLICITED RESULTS Performing Organization Address [facility]/ZIP Co de Phone Number [facility] [address] [place] [address], [place] [phone] * (ABNORMAL) CBC auto differential (09/22/2024 5:59 AM EST) [facility] WBC 13.0(H) 4.8 - 10.8 K/[facility] LAB HEMETOLOGY METHOD 09/22/2024 7:21 AM [facility] RBC 3.50(L) 3.80 - 4.80 /[facility] LAB HEMETOLOGY METHOD 09/22/2024 7:21 AM [facility] Hemoglobin 7.8(L) 11.5 - 16.0 g/dL LAB HEMETOLOGY METHOD 09/22/2024 7:21 AM [facility] Hematocrit 25.7(L) 35.0 - 47.0 % LAB HEMETOLOGY METHOD 09/22/2024 7:21 AM [facility] MCV 73.0(L) 79.0 - 98.0 FL LAB HEMETOLOGY METHOD 09/22/2024 7:21 AM [facility] MCH 22.2(L) 27.0 - 32.0 pcg LAB HEMETOLOGY METHOD 09/22/2024 7:21 AM [facility] MCHC 30.4(L) 32.0 - 37.0 g/dL LAB HEMETOLOGY METHOD 09/22/2024 7:21 AM [facility] RDW 21.6(H) 11.0 - 15.0 % LAB HEMETOLOGY METHOD 09/22/2024 7:21 AM [facility] Platelets 595(H) 130 - 400 K/mcL LAB HEMETOLOGY METHOD 09/22/2024 7:21 AM [facility] MPV 9.3 7.0 - 11.0 FL LAB HEMETOLOGY METHOD 09/22/2024 7:21 AM [facility] NRBC 0.0 <1.0 % LAB HEMETOLOGY METHOD 09/22/2024 7:21 AM [facility] NRBC Absolute 0.00 <0.10 K/mcL LAB HEMETOLOGY METHOD 09/22/2024 7:21 AM [facility] Neutrophils Relative 84.3 % LAB HEMETOLOGY METHOD 09/22/2024 7:21 AM [facility] Lymphocytes Relative 7.7 % LAB HEMETOLOGY METHOD 09/22/2024 7:21 AM [facility] Monocytes Relative 6.8 % LAB HEMETOLOGY METHOD 09/22/2024 7:21 AM [facility] Eosinophils Relative 0.0 % LAB HEMETOLOGY METHOD 09/22/2024 7:21 AM [facility] Basophils Relative 0.1 % LAB HEMETOLOGY METHOD 09/22/2024 7:21 AM [facility] Immature Granulocytes Relative 1.1 % LAB HEMETOLOGY METHOD 09/22/2024 7:[address] [facility] Neutrophils Absolute 10.99(H) 1.50 - 7.00 K/[facility] LAB HEMETOLOGY METHOD 09/22/2024 7:[address] [facility] Lymphocytes Absolute 1.01 1.00 - 5.00 K/mcL LAB HEMETOLOGY METHOD 09/22/2024 7:[address] [facility] Monocytes Absolute 0.89 0.20 - 1.00 K/mcL LAB HEMETOLOGY METHOD 09/22/2024 7:[address] [facility] Eosinophils Absolute 0.00 0.00 - 0.50 K/[facility] LAB HEMETOLOGY METHOD 09/22/2024 7:[address] [facility] Basophils Absolute 0.01 0.00 - 0.20 K/mcL LAB HEMETOLOGY METHOD 09/22/2024 7:21 AM [facility] Immature Granulocytes Absolute 0.14(H) 0.00 - 0.03 K/[facility] LAB HEMETOLOGY METHOD 09/22/2024 7:21 AM [facility] Blood Venous blood specimen / Unknown Venipuncture / Unknown 09/22/2024 5:59 AM EST 09/22/2024 7:03 AM EST Abran Solis [place] LAB BLOOD ORDERAB LES [facility] [address] [place] [address], * (ABNORMAL) CBC - Every 3 Days (09/22/2024 5:59 AM EST) WBC 13.0(H) 4.8 - 10.8 K/mcL LAB HEMETOLOGY METHOD 09/22/2024 7:[address] [facility] RBC 3.50(L) 3.80 - 4.80 M/mcL LAB HEMETOLOGY METHOD 09/22/2024 7:21 AM [facility] Hemoglobin 7.8(L) 11.5 - 16.0 g/dL LAB HEMETOLOGY METHOD 09/22/2024 7:21 AM [facility] Hematocrit 25.7(L) 35.0 - 47.0 % LAB HEMETOLOGY METHOD 09/22/2024 7:21 AM [facility] MCV 73.0(L) 79.0 - 98.0 FL LAB HEMETOLOGY METHOD 09/22/2024 7:21 AM [facility] MCH 22.2(L) 27.0 - 32.0 pcg LAB HEMETOLOGY METHOD 09/22/2024 7:21 AM [facility] MCHC 30.4(L) 32.0 - 37.0 g/dL LAB HEMETOLOGY METHOD 09/22/2024 7:21 AM [facility] RDW 21.6(H) 11.0 - 15.0 % LAB HEMETOLOGY METHOD 09/22/2024 7:21 AM [facility] Platelets 595(H) 130 - 400 K/mcL LAB HEMETOLOGY METHOD 09/22/2024 7:21 AM [facility] MPV 9.3 7.0 - 11.0 FL LAB HEMETOLOGY METHOD 09/22/2024 7:21 AM [facility] [facility] LAB NRBC 0.0 <1.0 % LAB HEMETOLOGY METHOD 09/22/2024 7:21 AM [facility] NRBC Absolute 0.00 <0.10 K/mcL LAB HEMETOLOGY METHOD 09/22/2024 7:21 AM [facility] Blood Venous blood specimen / Unknown Venipuncture / Unknown 09/22/2024 5:59 AM EST 09/22/2024 7:03 AM EST Abran JOSEPH LAB BLOOD ORDERAB LES [facility] [address] [place] [address], * (ABNORMAL) Basic metabolic panel (09/22/2024 5:59 AM EST) Sodium 142 133 - 145 mmol/L LAB CHEMISTRY METHOD 09/22/2024 8:[address] [facility] Potassium 3.5 3.5 - 5.5 mmol/L LAB CHEMISTRY METHOD 09/22/2024 8:50 AM [facility] Chloride 106 96 - 110 mmol/L LAB CHEMISTRY METHOD 09/22/2024 8:50 AM [facility] CO2 22 21 - 32 mmol/L LAB CHEMISTRY METHOD 09/22/2024 8:50 AM [facility] Anion Gap 14(H) 3 - 11 LAB CHEMISTRY METHOD 09/22/2024 8:50 AM [facility] Glucose 76 70 - 100 mg/dL LAB CHEMISTRY METHOD 09/22/2024 8:50 AM [facility] Comment:Lipemia present BUN 9 5 - 25 mg/dL LAB CHEMISTRY METHOD 09/22/2024 8:50 AM [facility] Creatinine 0.22(L) 0.50 - 1.10 mg/dL LAB CHEMISTRY METHOD 09/22/2024 8:50 AM [facility] eGFR 119 >=60 mL/min/1. 73m2 LAB CHEMISTRY METHOD 09/22/2024 8:50 AM [facility] Comment:Calculation based on the??Chronic Kidney Disease Epidemiology Collaboration (CKD-EPI) equation refit??without adjustment for race. BUN/Creatinine Ratio 40.9 LAB CHEMISTRY METHOD 09/22/2024 8:50 AM [facility] Calcium 8.4(L) 8.5 - 10.5 mg/dL LAB CHEMISTRY METHOD 09/22/2024 8:[address] [facility] Blood Venous blood specimen / Unknown Venipuncture / Unknown 09/22/2024 5:59 AM EST 09/22/2024 7:07 AM EST Abran JOSEPH LAB BLOOD ORDERAB LES [facility] [address] [place] [address], [place] [phone] * POCT Glucose, blood (09/21/2024 8:09 PM EST) Glucose POCT 92 70 - 100 mg/dL 09/21/2024 8:[address] [facility] Blood Capillary blood specimen / Unknown 09/21/2024 8:09 PM EST 09/21/2024 8:11 PM EST Bernardo Alcantara MD LAB POINT OF CARE TE ST DOCKED DEVICE UNSOLICITED RESULTS Performing Organization Address City/[facility]/ZIP Co de Phone Number [facility] [address] [place] [address], [place] [phone] * POCT Glucose, blood (09/21/2024 6:45 PM EST) Glucose POCT 78 70 - 100 mg/dL 09/21/2024 6:[address] [facility] Blood Capillary blood specimen / Unknown 09/21/2024 6:45 PM EST 09/21/2024 6:47 PM EST Bernardo Alcantara MD LAB POINT OF CARE TE ST DOCKED DEVICE UNSOLICITED RESULTS [facility] [address] [place] [address], [place] [phone] * POCT Glucose, blood (09/21/2024 12:20 PM EST) Glucose POCT 88 70 - 100 mg/dL 09/21/2024 12:[address] [facility] Blood Capillary blood specimen / Unknown 09/21/2024 12:20 PM EST 09/21/2024 12:23 PM EST Bernardo Alcantara MD LAB POINT OF CARE TE ST DOCKED DEVICE UNSOLICITED RESULTS [facility] [address] [place] [address], * ECG 12 lead (09/21/2024 10:37 AM EST) Ventricular Rate ECG 88 BPM GEMUSE Atrial Rate 88 BPM GEMUSE P-R Interval 146 ms GEMUSE QRS Duration 92 ms GEMUSE Q-T Interval 380 ms GEMUSE QTc 459 ms GEMUSE P Wave [place] 40 degrees GEMUSE R [place] 1 degrees GEMUSE T [place] 37 degrees GEMUSE ECG Interpretation Sinus rhythm [...] Abran JOSEPH ECG ORDERABLES Performing Organization Address City/[facility]/ZIP Co de Phone Number GEMUSE * POCT Glucose, blood (09/21/2024 9:17 AM EST) Glucose POCT 73 70 - 100 mg/dL 09/21/2024 9:[address] [facility] Blood Capillary blood specimen / Unknown 09/21/2024 9:17 AM EST 09/21/2024 9:19 AM EST Bernardo Alcantara MD LAB POINT OF CARE TE ST DOCKED DEVICE UNSOLICITED RESULTS [facility] [address] [place] [address], * (ABNORMAL) CBC auto differential (09/21/2024 6:22 AM EST) WBC 17.6(H) 4.8 - 10.8 K/mcL LAB HEMETOLOGY METHOD 09/21/2024 8:37 AM [facility] RBC 3.40(L) 3.80 - 4.80 M/mcL LAB HEMETOLOGY METHOD 09/21/2024 8:37 AM [facility] Hemoglobin 7.6(L) 11.5 - 16.0 g/dL LAB HEMETOLOGY METHOD 09/21/2024 8:37 AM [facility] Hematocrit 25.0(L) 35.0 - 47.0 % LAB HEMETOLOGY METHOD 09/21/2024 8:37 AM [facility] MCV 73.3(L) 79.0 - 98.0 FL LAB HEMETOLOGY METHOD 09/21/2024 8:37 AM [facility] MCH 22.3(L) 27.0 - 32.0 pcg LAB HEMETOLOGY METHOD 09/21/2024 8:37 AM [facility] MCHC 30.4(L) 32.0 - 37.0 g/dL LAB HEMETOLOGY METHOD 09/21/2024 8:37 AM [facility] RDW 21.3(H) 11.0 - 15.0 % LAB HEMETOLOGY METHOD 09/21/2024 8:37 AM [facility] Platelets 584(H) 130 - 400 K/mcL LAB HEMETOLOGY METHOD 09/21/2024 8:37 AM [facility] MPV 9.4 7.0 - 11.0 FL LAB HEMETOLOGY METHOD 09/21/2024 8:37 AM [facility] NRBC 0.0 <1.0 % LAB HEMETOLOGY METHOD 09/21/2024 8:37 AM [facility] NRBC Absolute 0.00 <0.10 K/mcL LAB HEMETOLOGY METHOD 09/21/2024 8:37 AM [facility] Neutrophils Relative 87.4 % LAB HEMETOLOGY METHOD 09/21/2024 8:37 AM [facility] Lymphocytes Relative 7.3 % LAB HEMETOLOGY METHOD 09/21/2024 8:37 AM [facility] Monocytes Relative 4.6 % LAB HEMETOLOGY METHOD 09/21/2024 8:37 AM [facility] Eosinophils Relative 0.0 % LAB HEMETOLOGY METHOD 09/21/2024 8:37 AM [facility] Basophils Relative 0.1 % LAB HEMETOLOGY METHOD 09/21/2024 8:37 AM [facility] Immature Granulocytes Relative 0.6 % LAB HEMETOLOGY METHOD 09/21/2024 8:37 AM [facility] Neutrophils Absolute 15.41(H) 1.50 - 7.00 K/mcL LAB HEMETOLOGY METHOD 09/21/2024 8:37 AM [facility] Lymphocytes Absolute 1.29 1.00 - 5.00 K/mcL LAB HEMETOLOGY METHOD 09/21/2024 8:37 AM [facility] Monocytes Absolute 0.81 0.20 - 1.00 K/mcL LAB HEMETOLOGY METHOD 09/21/2024 8:37 AM [facility] Eosinophils Absolute 0.00 0.00 - 0.50 K/mcL LAB HEMETOLOGY METHOD 09/21/2024 8:37 AM [facility] Basophils Absolute 0.02 0.00 - 0.20 K/mcL LAB HEMETOLOGY METHOD 09/21/2024 8:37 AM [facility] Immature Granulocytes Absolute 0.11(H) 0.00 - 0.03 K/mcL LAB HEMETOLOGY METHOD 09/21/2024 8:37 AM [facility] Blood Venous blood specimen / Unknown Venipuncture / Unknown 09/21/2024 6:22 AM EST 09/21/2024 7:52 AM EST Abran JOSEPH LAB BLOOD ORDERAB LES [facility] [address] [place] [address], * (ABNORMAL) Basic metabolic panel (09/21/2024 6:22 AM EST) Sodium 140 133 - 145 mmol/L LAB CHEMISTRY METHOD 09/21/2024 8:24 AM [facility] Potassium 3.8 3.5 - 5.5 mmol/L LAB CHEMISTRY METHOD 09/21/2024 8:24 AM [facility] Chloride 104 96 - 110 mmol/L LAB CHEMISTRY METHOD 09/21/2024 8:24 AM [facility] CO2 25 21 - 32 mmol/L LAB CHEMISTRY METHOD 09/21/2024 8:24 AM [facility] Anion Gap 11 3 - 11 LAB CHEMISTRY METHOD 09/21/2024 8:24 AM [facility] Glucose 69(L) 70 - 100 mg/dL LAB CHEMISTRY METHOD 09/21/2024 8:24 AM [facility] BUN 16 5 - 25 mg/dL LAB CHEMISTRY METHOD 09/21/2024 8:24 AM [facility] Creatinine 0.20(L) 0.50 - 1.10 mg/dL LAB CHEMISTRY METHOD 09/21/2024 8:24 AM [facility] eGFR 121 >=60 mL/min/1. 73m2 LAB CHEMISTRY METHOD 09/21/2024 8:[address] [facility] Comment:Calculation based on the??Chronic Kidney Disease Epidemiology Collaboration (CKD-EPI) equation refit??without adjustment for race. BUN/Creatinine Ratio 80.0 LAB CHEMISTRY METHOD 09/21/2024 8:[address] [facility] Calcium 8.0(L) 8.5 - 10.5 mg/dL LAB CHEMISTRY METHOD 09/21/2024 8:[address] [facility] Blood Venous blood specimen / Unknown Venipuncture / Unknown 09/21/2024 6:22 AM EST 09/21/2024 7:53 AM EST Abran JOSEPH LAB BLOOD ORDERAB LES [facility] [address] [place] [address], * MR Thoracic Spine wo Contrast (09/20/2024 [...] Signed Date: 09/21/2024 08:47 ET Workstation ID: [id number] Transcribed By: Self Edit Transcribed Date: 09/21/2024 [...] Signed Date: 09/21/2024 08:47 ET Workstation ID: [id number] Transcribed By: Self Edit Transcribed Date: 09/21/2024 08:27 ET Abran JOSEPH IMG MRI PROCEDURE S * (ABNORMAL) RBC morphology review (09/20/2024 8:38 AM EST) Rbc Morphology See comment( A) Consistent with indices, Normal for LAB HEMETOLOGY METHOD 09/20/2024 10:[address] [facility] Comment:RBC: Morphology agre es with CBC Platelet Morphology - WAM See Note(A) Normal LAB HEMETOLOGY METHOD 09/20/2024 10:[address] [facility] Comment:PLT: Normal Blood Venous blood specimen / Unknown Venipuncture / Unknown 09/20/2024 8:38 AM EST 09/20/2024 9:05 AM EST Abran JOSEPH LAB BLOOD ORDERAB LES [facility] [address] [place] [address], * (ABNORMAL) CBC auto differential (09/20/2024 8:38 AM EST) WBC 28.2(H) 4.8 - 10.8 K/mcL LAB HEMETOLOGY METHOD 09/20/2024 10:[address] [facility] RBC 3.90 3.80 - 4.80 M/mcL LAB HEMETOLOGY METHOD 09/20/2024 10:07 AM [facility] Hemoglobin 8.8(L) 11.5 - 16.0 g/dL LAB HEMETOLOGY METHOD 09/20/2024 10:07 AM [facility] Hematocrit 29.5(L) 35.0 - 47.0 % LAB HEMETOLOGY METHOD 09/20/2024 10:07 AM [facility] MCV 75.4(L) 79.0 - 98.0 FL LAB HEMETOLOGY METHOD 09/20/2024 10:07 AM [facility] MCH 22.5(L) 27.0 - 32.0 pcg LAB HEMETOLOGY METHOD 09/20/2024 10:07 AM [facility] MCHC 29.8(L) 32.0 - 37.0 g/dL LAB HEMETOLOGY METHOD 09/20/2024 10:07 AM [facility] RDW 21.6(H) 11.0 - 15.0 % LAB HEMETOLOGY METHOD 09/20/2024 10:07 AM [facility] Platelets 611(H) 130 - 400 K/mcL LAB HEMETOLOGY METHOD 09/20/2024 10:07 AM [facility] MPV 9.1 7.0 - 11.0 FL LAB HEMETOLOGY METHOD 09/20/2024 10:07 AM [facility] NRBC 0.0 <1.0 % LAB HEMETOLOGY METHOD 09/20/2024 10:07 AM [facility] NRBC Absolute 0.00 <0.10 K/mcL LAB HEMETOLOGY METHOD 09/20/2024 10:07 AM [facility] Neutrophils Relative 90.2 % LAB HEMETOLOGY METHOD 09/20/2024 10:07 AM [facility] Comment:This is an appended report. These results have been appended to a previously preliminary verified report. Lymphocytes Relative 5.3 % LAB HEMETOLOGY METHOD 09/20/2024 10:07 AM [facility] Comment:This is an appended report. These results have been appended to a previously preliminary verified report. Monocytes Relative 3.5 % LAB HEMETOLOGY METHOD 09/20/2024 10:07 AM [facility] Comment:This is an appended report. These results have been appended to a previously preliminary verified report. Eosinophils Relative 0.0 % LAB HEMETOLOGY METHOD 09/20/2024 10:07 AM [facility] Comment:This is an appended report. These results have been appended to a previously preliminary verified report. Basophils Relative 0.1 % LAB HEMETOLOGY METHOD 09/20/2024 10:07 AM [facility] Comment:This is an appended report. These results have been appended to a previously preliminary verified report. Immature Granulocytes Relative 0.9 % LAB HEMETOLOGY METHOD 09/20/2024 10:07 AM [facility] Comment:This is an appended report. These results have been appended to a previously preliminary verified report. Neutrophils Absolute 25.37(H) 1.50 - 7.00 K/mcL LAB HEMETOLOGY METHOD 09/20/2024 10:07 AM [facility] Comment:This is an appended report. These results have been appended to a previously preliminary verified report. Lymphocytes Absolute 1.50 1.00 - 5.00 K/mcL LAB HEMETOLOGY METHOD 09/20/2024 10:07 AM [facility] Comment:This is an appended report. These results have been appended to a previously preliminary verified report. Monocytes Absolute 1.00 0.20 - 1.00 K/mcL LAB HEMETOLOGY METHOD 09/20/2024 10:07 AM [facility] Comment:This is an appended report. These results have been appended to a previously preliminary verified report. Eosinophils Absolute 0.00 0.00 - 0.50 K/mcL LAB HEMETOLOGY METHOD 09/20/2024 10:[address] [facility] Comment:This is an appended report. These results have been appended to a previously preliminary verified report. Basophils Absolute 0.04 0.00 - 0.20 K/mcL LAB HEMETOLOGY METHOD 09/20/2024 10:[address] [facility] Comment:This is an appended report. These results have been appended to a previously preliminary verified report. Immature Granulocytes Absolute 0.26(H) 0.00 - 0.03 K/[facility] 09/20/[facility] 10:[address] [facility] Comment:This is an appended report. These results have been appended to a previously preliminary verified report. Blood Venous blood specimen / Unknown Venipuncture / Unknown 09/20/2024 8:38 AM EST 09/20/2024 9:05 AM EST Abran JOSEPH LAB BLOOD ORDERAB LES Performing Organization Address City/[facility]/ZIP Co de Phone Number [facility] [address] [place] [address], [place] [phone] * (ABNORMAL) Sedimentation rate (09/20/2024 8:38 AM EST) Sed Rate 121(H) 0 - 30 mm/hr LAB HEMETOLOGY METHOD 09/20/2024 9:[address] [facility] Blood Venous blood specimen / Unknown Venipuncture / Unknown 09/20/2024 8:38 AM EST 09/20/2024 9:05 AM EST Emiliano JOSEPH LAB BLOOD ORDERABLE S Performing Organization Address City/[facility]/ZIP Co de Phone Number [facility] [address] [place] [address], [place] [phone] * POCT Glucose, blood (09/20/2024 8:01 AM EST) [facility] Glucose POCT 99 70 - 100 mg/dL 09/20/2024 8:[address] [facility] Blood Capillary blood specimen / Unknown 09/20/2024 8:01 AM EST 09/20/2024 8:06 AM EST Bernardo Alcantara MD LAB POINT OF CARE TE ST DOCKED DEVICE UNSOLICITED RESULTS Performing Organization Address City/[facility]/ZIP Co de Phone Number [facility] [address] [place] [address], [place] [phone] * (ABNORMAL) C-reactive protein (09/20/2024 5:43 AM EST) [facility] C-Reactive Protein 15.60(H) <=0.50 mg/dL LAB CHEMISTRY METHOD 09/20/2024 7:[address] [facility] Blood Venous blood specimen / Unknown Venipuncture / Unknown 09/20/2024 5:43 AM EST 09/20/2024 6:38 AM EST Emiliano JOSEPH LAB BLOOD ORDERABLE S Performing Organization Address City/[facility]/ZIP Co de Phone Number [facility] [address] [place] [address], [place] [phone] * (ABNORMAL) Basic metabolic panel (09/20/2024 5:43 AM EST) [facility] Sodium 137 133 - 145 mmol/L LAB CHEMISTRY METHOD 09/20/2024 7:[address] [facility] Potassium 4.3 3.5 - 5.5 mmol/L LAB CHEMISTRY METHOD 09/20/2024 7:[address] [facility] Chloride 105 96 - 110 mmol/L LAB CHEMISTRY METHOD 09/20/2024 7:[address] [facility] CO2 22 21 - 32 mmol/L LAB CHEMISTRY METHOD 09/20/2024 7:21 AM [facility] Anion Gap 10 3 - 11 LAB CHEMISTRY METHOD 09/20/2024 7:21 AM [facility] Glucose 88 70 - 100 mg/dL LAB CHEMISTRY METHOD 09/20/2024 7:21 AM [facility] BUN 21 5 - 25 mg/dL LAB CHEMISTRY METHOD 09/20/2024 7:21 AM [facility] Creatinine 0.25(L) 0.50 - 1.10 mg/dL LAB CHEMISTRY METHOD 09/20/2024 7:21 AM [facility] eGFR 115 >=60 mL/min/1. 73m2 LAB CHEMISTRY METHOD 09/20/2024 7:21 AM [facility] Comment:Calculation based on the??Chronic Kidney Disease Epidemiology Collaboration (CKD-EPI) equation refit??without adjustment for race. BUN/Creatinine Ratio 84.0 LAB CHEMISTRY METHOD 09/20/2024 7:21 AM [facility] Calcium 8.1(L) 8.5 - 10.5 mg/dL LAB CHEMISTRY METHOD 09/20/2024 7:21 AM [facility] Blood Venous blood specimen / Unknown Venipuncture / Unknown 09/20/2024 5:43 AM EST 09/20/2024 6:38 AM EST Emiliano JOSEPH LAB BLOOD ORDERABLE S [facility] [address] [place] [address], * (ABNORMAL) POCT Glucose, blood (09/19/2024 11:48 PM EST) Glucose POCT 110(H) 70 - 100 mg/dL 09/19/2024 11:[address] [facility] Blood Capillary blood specimen / Unknown 09/19/2024 11:48 PM EST 09/19/2024 11:50 PM EST Bernardo Alcantara MD LAB POINT OF CARE TE ST DOCKED DEVICE UNSOLICITED RESULTS Performing Organization Address [facility]/ZIP Co de Phone Number [facility] [address] [place] [address], [place] [phone] * POCT Glucose, blood (09/19/2024 4:46 PM EST) Glucose POCT 98 70 - 100 mg/dL 09/19/2024 4:[address] [facility] Blood Capillary blood specimen / Unknown 09/19/2024 4:46 PM EST 09/19/2024 4:49 PM EST Bernardo Alcantara MD LAB POINT OF CARE TE ST DOCKED DEVICE UNSOLICITED RESULTS Performing Organization Address [facility] de Phone Number [facility] [address] [place] [address], [place] [phone] * Culture blood (09/19/2024 4:34 PM EST) Culture, Blood No growth at 5 days LAB MICROBIOLOGY METHOD 09/24/2024 5:[address] [facility] Blood Specimen from bone marrow obtained by aspiration / Unknown Venipuncture / Unknown 09/19/2024 4:34 PM EST 09/19/2024 4:41 PM EST Abran JOSEPH LAB MICROBIOLOGY - GENERAL ORDERABLES Performing Organization Address [facility] Co de Phone Number [facility] [address] [place] [address], [place] [phone] * Culture blood (09/19/2024 4:29 PM EST) Culture, Blood No growth at 5 days LAB MICROBIOLOGY METHOD 09/24/2024 5:[address] [facility] Blood Venous blood specimen / Unknown Venipuncture / Unknown 09/19/2024 4:29 PM EST 09/19/2024 4:40 PM EST Abran JOSEPH LAB MICROBIOLOGY - GENERAL ORDERABLES [facility] [address] [place] [address], [place] [phone] * (ABNORMAL) POCT Glucose, blood (09/19/2024 4:13 PM EST) Glucose POCT 107(H) 70 - 100 mg/dL 09/19/2024 4:[address] [facility] Blood Capillary blood specimen / Unknown 09/19/2024 4:13 PM EST 09/19/2024 4:15 PM EST Bernardo Alcantara MD LAB POINT OF CARE TE ST DOCKED DEVICE UNSOLICITED RESULTS [facility] [address] [place] [address], [place] [phone] * POCT Glucose, blood (09/19/2024 12:51 PM EST) Glucose POCT 76 70 - 100 mg/dL 09/19/2024 12:[address] [facility] POCT Comment RN Notified 09/19/2024 12:[address] [facility] Blood Capillary blood specimen / Unknown 09/19/2024 12:51 PM EST 09/19/2024 12:53 PM EST Bernardo Alcantara MD LAB POINT OF CARE TE ST DOCKED DEVICE UNSOLICITED RESULTS [facility] [address] [place] [address], [place] [phone] * (ABNORMAL) Culture body fluid with gram stain (09/19/2024 10:31 AM EST) Fluid Culture Methicillin-Sensiti ve Staphylococcus aureus(A) SANDRA 09/23/2024 10:[address] [facility] Comment: The organism value for this result has been updated. These results have been appended to the previously preliminary verified report. Edited result: Previously reported as Staphylococcus aureus on 09/20/2024 at 1312 EST. Gram Stain Result No epithelial cells seen(A) 09/23/2024 10:05 AM [facility] Gram Stain Result Many Polymorphonuclear leukocytes(A) 09/23/2024 10:05 AM [facility] Gram Stain Result Few Gram positive cocci in clusters(A) 09/23/2024 10:05 AM [facility] Synovial Fluid Structure of [...] Mcdowell MD LAB MICROBIOLOGY - GENERAL ORDERABLES [facility] [address] [place] [address], * (ABNORMAL) CBC auto differential (09/19/2024 8:08 AM EST) WBC 26.0(H) 4.8 - 10.8 K/mcL LAB HEMETOLOGY METHOD 09/19/2024 9:05 AM [facility] RBC 4.10 3.80 - 4.80 M/mcL LAB HEMETOLOGY METHOD 09/19/2024 9:05 AM [facility] Hemoglobin 9.1(L) 11.5 - 16.0 g/dL LAB HEMETOLOGY METHOD 09/19/2024 9:05 AM [facility] Hematocrit 29.8(L) 35.0 - 47.0 % LAB HEMETOLOGY METHOD 09/19/2024 9:05 AM [facility] MCV 72.9(L) 79.0 - 98.0 FL LAB HEMETOLOGY METHOD 09/19/2024 9:05 AM [facility] MCH 22.2(L) 27.0 - 32.0 pcg LAB HEMETOLOGY METHOD 09/19/2024 9:05 AM [facility] MCHC 30.5(L) 32.0 - 37.0 g/dL LAB HEMETOLOGY METHOD 09/19/2024 9:05 AM [facility] RDW 21.2(H) 11.0 - 15.0 % LAB HEMETOLOGY METHOD 09/19/2024 9:05 AM [facility] Platelets 552(H) 130 - 400 K/mcL LAB HEMETOLOGY METHOD 09/19/2024 9:05 AM [facility] MPV 9.1 7.0 - 11.0 FL LAB HEMETOLOGY METHOD 09/19/2024 9:05 AM [facility] NRBC 0.0 <1.0 % LAB HEMETOLOGY METHOD 09/19/2024 9:05 AM [facility] NRBC Absolute 0.00 <0.10 K/mcL LAB HEMETOLOGY METHOD 09/19/2024 9:05 AM [facility] Neutrophils Relative 91.0 % LAB HEMETOLOGY METHOD 09/19/2024 9:05 AM [facility] Comment:This is an appended report. These results have been appended to a previously preliminary verified report. Lymphocytes Relative 3.6 % LAB HEMETOLOGY METHOD 09/19/2024 9:05 AM [facility] Comment:This is an appended report. These results have been appended to a previously preliminary verified report. Monocytes Relative 4.4 % LAB HEMETOLOGY METHOD 09/19/2024 9:05 AM [facility] Comment:This is an appended report. These results have been appended to a previously preliminary verified report. Eosinophils Relative 0.1 % LAB HEMETOLOGY METHOD 09/19/2024 9:05 AM [facility] Comment:This is an appended report. These results have been appended to a previously preliminary verified report. Basophils Relative 0.2 % LAB HEMETOLOGY METHOD 09/19/2024 9:05 AM [facility] Comment:This is an appended report. These results have been appended to a previously preliminary verified report. Immature Granulocytes Relative 0.7 % LAB HEMETOLOGY METHOD 09/19/2024 9:05 AM [facility] Comment:This is an appended report. These results have been appended to a previously preliminary verified report. Neutrophils Absolute 23.65(H) 1.50 - 7.00 K/mcL LAB HEMETOLOGY METHOD 09/19/2024 9:05 AM [facility] Comment:This is an appended report. These results have been appended to a previously preliminary verified report. Lymphocytes Absolute 0.94(L) 1.00 - 5.00 K/mcL LAB HEMETOLOGY METHOD 09/19/2024 9:[address] [facility] Comment:This is an appended report. These results have been appended to a previously preliminary verified report. Monocytes Absolute 1.13(H) 0.20 - 1.00 K/[facility]L [facility]:[address] [facility] Comment:This is an appended report. These results have been appended to a previously preliminary verified report. Eosinophils Absolute 0.02 0.00 - 0.50 K/[facility]L [facility]/19/[facility] 9:[address] [facility] Comment:This is an appended report. These results have been appended to a previously preliminary verified report. Basophils Absolute 0.04 0.00 - 0.20 K/[facility]/19/[facility] 9:[address] [facility] Comment:This is an appended report. These results have been appended to a previously preliminary verified report. Immature Granulocytes Absolute 0.19(H) 0.00 - 0.03 K/[facility]/19/[facility] 9:[address] [facility] Comment:This is an appended report. These results have been appended to a previously preliminary verified report. Blood Venous blood specimen / Unknown Venipuncture / Unknown 09/19/2024 8:08 AM EST 09/19/2024 8:32 AM EST Abran Solis PA LAB BLOOD ORDERAB LES [facility] [address] [place] [address], * POCT Glucose, blood (09/19/2024 7:48 AM EST) Glucose POCT 81 70 - 100 mg/dL 09/19/2024 7:[address] [facility] POCT Comment RN Notified 09/19/2024 7:[address] [facility] Blood Capillary blood specimen / Unknown 09/19/2024 7:48 AM EST 09/19/2024 7:50 AM EST Bernardo Alcantara MD LAB POINT OF CARE TE ST DOCKED DEVICE UNSOLICITED RESULTS [facility] [address] [place] [address], [place] [phone] * (ABNORMAL) Magnesium (09/19/2024 5:46 AM EST) Pathologist [facility] Magnesium 1.8(L) 1.9 - 2.6 mg/dL LAB CHEMISTRY METHOD 09/19/2024 7:[address] [facility] Blood Venous blood specimen / Unknown Venipuncture / Unknown 09/19/2024 5:46 AM EST 09/19/2024 6:51 AM EST Abran JOSEPH LAB BLOOD ORDERAB LES [facility] [address] [place] [address], [place] [phone] * (ABNORMAL) Comprehensive metabolic panel (09/19/2024 5:46 AM EST) Pathologist [facility] Sodium 137 133 - 145 mmol/L LAB CHEMISTRY METHOD 09/19/2024 7:[address] [facility] Potassium 3.9 3.5 - 5.5 mmol/L LAB CHEMISTRY METHOD 09/19/2024 7:[address] [facility] Chloride 102 96 - 110 mmol/L LAB CHEMISTRY METHOD 09/19/2024 7:[address] [facility] CO2 23 21 - 32 mmol/L LAB CHEMISTRY METHOD 09/19/2024 7:38 AM [facility] Anion Gap 12(H) 3 - 11 LAB CHEMISTRY METHOD 09/19/2024 7:38 AM [facility] Glucose 64(L) 70 - 100 mg/dL LAB CHEMISTRY METHOD 09/19/2024 7:38 AM [facility] BUN 12 5 - 25 mg/dL LAB CHEMISTRY METHOD 09/19/2024 7:38 AM [facility] Creatinine <0.15(L) 0.50 - 1.10 mg/dL LAB CHEMISTRY METHOD 09/19/2024 7:38 AM [facility] eGFR LAB CHEMISTRY METHOD 09/19/2024 7:38 AM [facility] Comment:Creatinine above or below reportable range; unable to calculate eGFR. BUN/Creatinine Ratio LAB CHEMISTRY METHOD 09/19/2024 7:38 AM [facility] Comment:Creatinine and/or Ur ea Nitrogen (BUN) above or below reportable range; unable to calculate BUN/Creatinine Ratio. Calcium 7.9(L) 8.5 - 10.5 mg/dL LAB CHEMISTRY METHOD 09/19/2024 7:38 AM [facility] AST (SGOT) 27 10 - 42 unit/L LAB CHEMISTRY METHOD 09/19/2024 7:38 AM [facility] ALT (SGPT) <6(L) 10 - 60 unit/L LAB CHEMISTRY METHOD 09/19/2024 7:38 AM [facility] Alkaline Phosphatase 100 42 - 121 unit/L LAB CHEMISTRY METHOD 09/19/2024 7:38 AM [facility] Total Protein 5.5(L) 6.0 - 8.0 g/dL LAB CHEMISTRY METHOD 09/19/2024 7:38 AM [facility] Albumin 1.5(L) 3.2 - 5.0 g/dL LAB CHEMISTRY METHOD 09/19/2024 7:38 AM [facility] Total Bilirubin 0.3 0.0 - 1.4 mg/dL LAB CHEMISTRY METHOD 09/19/2024 7:[address] [facility] Blood Venous blood specimen / Unknown Venipuncture / Unknown 09/19/2024 5:46 AM EST 09/19/2024 6:51 AM EST Abran JOSEPH LAB BLOOD ORDERAB LES Performing Organization Address [facility]/ZIP Co de Phone Number [facility] [address] [place] [address], [place] [phone] * Culture blood (09/18/2024 5:59 PM EST) Pathologist [facility] Culture, Blood No growth at 5 days LAB MICROBIOLOGY METHOD 09/23/2024 7:[address] [facility] Blood Venous blood specimen / Unknown Venipuncture / Unknown 09/18/2024 5:59 PM EST 09/18/2024 5:59 PM EST Stacia Leiws MD LAB MICROBIOLOGY - G ENERAL ORDERABLES Performing Organization Address [facility]/ZIP Co de Phone Number [facility] [address] [place] [address], [place] [phone] * (ABNORMAL) TRANSTHORACIC ECHOCARDIOGRAM (TTE) COMPLETE W/ [...] 44 mL CV PACS Left Atrium Minor [place] 5.1 cm CV PACS Left At[facility] Major [place] 4.2 cm CV PACS LA Area Sys [...] Gradient 89 mmHg CV PACS MV Deceleration [place] 4.1 m/s2 CV PACS E Wave Deceleration [...] Signed Date: 09/19/2024 14:55 ET Workstation ID: [id number] Transcribed By: Self Edit Transcribed Date: 09/18/2024 13:09 ET Resident/PA/ROLLER LEVELER: Rosaura Quintanilla Procedure Note Summer Sepulveda MD [...] Signed Date: 09/19/2024 14:55 ET Workstation ID: [id number] Transcribed By: Self Edit Transcribed Date: 09/18/2024 13:09 ET Resident/PA/ROLLER LEVELER: Rosaura Quintanilla Rosaura JOSEPH IMG US PROCEDURES * (ABNORMAL) Culture body fluid with gram stain (09/18/2024 11:40 AM EST) Fluid Culture Methicillin-Sensiti ve Staphylococcus aureus(A) SANDRA 09/21/2024 11:[address] [facility] Comment: The organism value for this result has been updated. These results have been appended to the previously preliminary verified report. Edited result: Previously reported as Staphylococcus aureus on 09/19/2024 at 1308 EST. Gram Stain Result Many Polymorphonuclear leukocytes(A) 09/21/2024 11:[address] [facility] Gram Stain Result Few Gram positive cocci in clusters(A) 09/21/2024 11:[address] [facility] Gram Stain Result No epithelial cells seen(A) 09/21/2024 11:[address] [facility] Synovial Fluid Structure of right [...] JOSEPH LAB MICROBIOLOGY - G ENERAL ORDERABLES [facility]) [facility] [address] [place] [address], * CT Chest/Abdomen/Pelvis w Contrast (09/18/2024 11:35 [...] Signed Date: 09/18/2024 11:58 ET Workstation ID: [id number] Transcribed By: Self Edit Transcribed Date: 09/18/2024 [...] Signed Date: 09/18/2024 11:58 ET Workstation ID: [id number] Transcribed By: Self Edit Transcribed Date: 09/18/2024 11:52 ET Abran JOSEPH IMG CT PROCEDURES * (ABNORMAL) Culture blood (09/18/2024 9:31 AM EST) Pathologist [facility] Culture, Blood Methicillin-Sens itive Staphylococcus aureus(AA) LAB MICROBIOLOGY METHOD 09/20/2024 9:[address] [facility] Comment: Negative for PBP2a - indicates susceptible to Oxacillin FOR SUSCEPTIBILITIES, REFER TO PREVIOUS CULTURE FROM [id number]. The organism value for this result has been updated. These results have been appended to the previously preliminary verified report. Gram Stain Result Aerobic bottle Gram positive cocci in clusters(AA) 09/20/2024 9:[address] [facility] Comment:This is an appended report. These results have been appended to a previously preliminary verified report. Blood Venous blood specimen / Unknown Venipuncture / Unknown 09/18/2024 9:31 AM EST 09/18/2024 9:36 AM EST Abran JOSEPH LAB MICROBIOLOGY - GENERAL ORDERABLES [facility] [address] [place] [address], * (ABNORMAL) Complete blood count (09/18/2024 8:13 AM EST) WBC 23.3(H) 4.8 - 10.8 K/mcL LAB HEMETOLOGY METHOD 09/18/2024 8:[address] [facility] RBC 4.20 3.80 - 4.80 M/mcL LAB HEMETOLOGY METHOD 09/18/2024 8:48 AM [facility] Hemoglobin 9.4(L) 11.5 - 16.0 g/dL LAB HEMETOLOGY METHOD 09/18/2024 8:48 AM [facility] Hematocrit 30.0(L) 35.0 - 47.0 % LAB HEMETOLOGY METHOD 09/18/2024 8:48 AM [facility] MCV 71.8(L) 79.0 - 98.0 FL LAB HEMETOLOGY METHOD 09/18/2024 8:48 AM [facility] MCH 22.5(L) 27.0 - 32.0 pcg LAB HEMETOLOGY METHOD 09/18/2024 8:48 AM [facility] MCHC 31.3(L) 32.0 - 37.0 g/dL LAB HEMETOLOGY METHOD 09/18/2024 8:48 AM [facility] RDW 21.2(H) 11.0 - 15.0 % LAB HEMETOLOGY METHOD 09/18/2024 8:48 AM [facility] Platelets 403(H) 130 - 400 K/mcL LAB HEMETOLOGY METHOD 09/18/2024 8:48 AM [facility] MPV 9.6 7.0 - 11.0 FL LAB HEMETOLOGY METHOD 09/18/2024 8:48 AM [facility] NRBC 0.0 <1.0 % LAB HEMETOLOGY METHOD 09/18/2024 8:48 AM [facility] NRBC Absolute 0.00 <0.10 K/mcL LAB HEMETOLOGY METHOD 09/18/2024 8:48 AM [facility] Blood Venous blood specimen / Unknown Venipuncture / Unknown 09/18/2024 8:13 AM EST 09/18/2024 8:40 AM EST Dennis Hagan MD LAB BLOOD ORDERABLES [facility] [address] [place] [address], * (ABNORMAL) Basic metabolic panel (09/18/2024 8:13 AM EST) Sodium 133 133 - 145 mmol/L LAB CHEMISTRY METHOD 09/18/2024 9:08 AM [facility] Potassium 3.8 3.5 - 5.5 mmol/L LAB CHEMISTRY METHOD 09/18/2024 9:08 AM [facility] Chloride 101 96 - 110 mmol/L LAB CHEMISTRY METHOD 09/18/2024 9:08 AM [facility] CO2 22 21 - 32 mmol/L LAB CHEMISTRY METHOD 09/18/2024 9:08 AM [facility] Anion Gap 10 3 - 11 LAB CHEMISTRY METHOD 09/18/2024 9:08 AM [facility] Glucose 71 70 - 100 mg/dL LAB CHEMISTRY METHOD 09/18/2024 9:08 AM [facility] BUN 7 5 - 25 mg/dL LAB CHEMISTRY METHOD 09/18/2024 9:08 AM [facility] Creatinine 0.23(L) 0.50 - 1.10 mg/dL LAB CHEMISTRY METHOD 09/18/2024 9:08 AM [facility] eGFR 117 >=60 mL/min/1. 73m2 LAB CHEMISTRY METHOD 09/18/2024 9:08 AM [facility] Comment:Calculation based on the??Chronic Kidney Disease Epidemiology Collaboration (CKD-EPI) equation refit??without adjustment for race. BUN/Creatinine Ratio 30.4 LAB CHEMISTRY METHOD 09/18/2024 9:08 AM [facility] Calcium 8.0(L) 8.5 - 10.5 mg/dL LAB CHEMISTRY METHOD 09/18/2024 9:[address] [facility] Blood Venous blood specimen / Unknown Venipuncture / Unknown 09/18/2024 8:13 AM EST 09/18/2024 8:40 AM EST Dennis Hagan MD LAB BLOOD ORDERABLES Performing Organization Address [facility]/ZIP Co de Phone Number [facility] [address] [place] [address], * (ABNORMAL) Troponin I high sensitivity (09/18/2024 2:59 AM EST) [facility] High Sensitivity Troponin I 72(H) <=54 ng/L LAB CHEMISTRY METHOD 09/18/2024 3:[address] [facility] Blood Venous blood specimen / Unknown Venipuncture / Unknown 09/18/2024 2:59 AM EST 09/18/2024 3:[address] [facility] - 09/18/2024 3:49 AM EST High levels of biotin in samples may falsely decrease hsTroponin values. ??Use caution when interpreting hsTroponin results in patients taking biotin who exhibit renal impairment (eGFR <60) or in patients taking more than 20 mg/day of biotin. Katty JOSEPH LAB BLOOD ORDER ADALID Performing Organization Address [facility] Co de Phone Number [facility] [address] [place] [address], [place] [phone] * ECG 12 lead (09/18/2024 2:31 AM EST) Pathologist [facility] Ventricular Rate ECG 120 BPM GEMUSE Atrial Rate 120 BPM GEMUSE P-R Interval 148 ms GEMUSE QRS Duration 88 ms GEMUSE Q-T Interval 318 ms GEMUSE QTc 449 ms GEMUSE P Wave [place] 58 degrees GEMUSE R [place] 6 degrees GEMUSE T [place] 29 degrees GEMUSE ECG Interpretation Sinus tachycardia Minimal voltage criteria for LVH, may be normal variant Borderline ECG When compared with ECG of 09-AUG-2024 02:15, Nonspecific T wave abnormality no longer evident in Anterior leads Confirmed by HARRIS AVILES ([id number]) on 09/18/2024 9:36:05 PM GEMUSE 09/18/2024 2:31 AM EST 09/18/2024 9:36 PM EST Katty JOSEPH ECG ORDERABLES GEMUSE * (ABNORMAL) C-reactive protein (09/17/2024 11:23 PM EST) [facility] C-Reactive Protein 13.40(H) <=0.50 mg/dL LAB CHEMISTRY METHOD 09/18/2024 12:[address] [facility] Blood Venous blood specimen / Unknown Venipuncture / Unknown 09/17/2024 11:23 PM EST 09/17/2024 11:37 PM EST Ktaty JOSEPH LAB BLOOD ORDER ADALID Performing Organization Address [facility] Co de Phone Number [facility] [address] [place] [address], [place] [phone] * (ABNORMAL) Sedimentation rate (09/17/2024 11:23 PM EST) [facility] Sed Rate 125(H) 0 - 30 mm/hr LAB HEMETOLOGY METHOD 09/17/2024 11:[address] [facility] Blood Venous blood specimen / Unknown Venipuncture / Unknown 09/17/2024 11:23 PM EST 09/17/2024 11:37 PM EST Katty JOSEPH LAB BLOOD ORDER ADALID Performing Organization Address City/[facility]/ZIP Co de Phone Number [facility] [address] [place] [address], [place] [phone] * XR Chest 1 View (09/17/2024 11:18 [...] Signed Date: 09/18/2024 08:25 ET Workstation ID: [id number] Transcribed By: Self Edit Transcribed Date: 09/18/2024 [...] Signed Date: 09/18/2024 08:25 ET Workstation ID: [id number] Transcribed By: Self Edit Transcribed Date: 09/18/2024 08:23 ET Katty Princeevelina JOSEPH IMG XR PROCEDUR ES * CT [...] (ABNORMAL) Sedimentation rate (09/17/2024 6:33 PM EST) [facility] Sed Rate 121(H) 0 - 30 mm/hr LAB HEMETOLOGY METHOD 09/17/2024 7:[address] [facility] Blood Venous blood specimen / Unknown Venipuncture / Unknown 09/17/2024 6:33 PM EST 09/17/2024 6:40 PM EST Rich Varner MD LAB BLOOD ORDERABLES [facility] [address] [place] [address], * (ABNORMAL) C-reactive protein (09/17/2024 6:33 PM EST) [facility] C-Reactive Protein 12.00(H) <=0.50 mg/dL LAB CHEMISTRY METHOD 09/17/2024 7:[address] [facility] Blood Venous blood specimen / Unknown Venipuncture / Unknown 09/17/2024 6:33 PM EST 09/17/2024 6:40 PM EST Rich Varner MD LAB BLOOD ORDERABLES [facility] [address] [place] [address], * (ABNORMAL) CBC auto differential (09/17/2024 6:33 PM EST) [facility] WBC 19.8(H) 4.8 - 10.8 K/mcL LAB HEMETOLOGY METHOD 09/17/2024 6:48 PM [facility] RBC 4.00 3.80 - 4.80 M/mcL LAB HEMETOLOGY METHOD 09/17/2024 6:48 PM [facility] Hemoglobin 9.0(L) 11.5 - 16.0 g/dL LAB HEMETOLOGY METHOD 09/17/2024 6:48 PM [facility] Hematocrit 28.8(L) 35.0 - 47.0 % LAB HEMETOLOGY METHOD 09/17/2024 6:48 PM [facility] MCV 72.5(L) 79.0 - 98.0 FL LAB HEMETOLOGY METHOD 09/17/2024 6:48 PM [facility] MCH 22.7(L) 27.0 - 32.0 pcg LAB HEMETOLOGY METHOD 09/17/2024 6:48 PM [facility] MCHC 31.3(L) 32.0 - 37.0 g/dL LAB HEMETOLOGY METHOD 09/17/2024 6:48 PM [facility] RDW 20.8(H) 11.0 - 15.0 % LAB HEMETOLOGY METHOD 09/17/2024 6:48 PM [facility] Platelets 500(H) 130 - 400 K/mcL LAB HEMETOLOGY METHOD 09/17/2024 6:48 PM [facility] MPV 8.6 7.0 - 11.0 FL LAB HEMETOLOGY METHOD 09/17/2024 6:48 PM [facility] NRBC 0.0 <1.0 % LAB HEMETOLOGY METHOD 09/17/2024 6:48 PM [facility] NRBC Absolute 0.00 <0.10 K/mcL LAB HEMETOLOGY METHOD 09/17/2024 6:48 PM [facility] Neutrophils Relative 89.2 % LAB HEMETOLOGY METHOD 09/17/2024 6:48 PM [facility] Lymphocytes Relative 5.3 % LAB HEMETOLOGY METHOD 09/17/2024 6:48 PM [facility] Monocytes Relative 4.4 % LAB HEMETOLOGY METHOD 09/17/2024 6:48 PM [facility] Eosinophils Relative 0.2 % LAB HEMETOLOGY METHOD 09/17/2024 6:48 PM [facility] Basophils Relative 0.2 % LAB HEMETOLOGY METHOD 09/17/2024 6:48 PM [facility] Immature Granulocytes Relative 0.7 % LAB HEMETOLOGY METHOD 09/17/2024 6:48 PM [facility] Neutrophils Absolute 17.66(H) 1.50 - 7.00 K/mcL LAB HEMETOLOGY METHOD 09/17/2024 6:48 PM [facility] Lymphocytes Absolute 1.05 1.00 - 5.00 K/mcL LAB HEMETOLOGY METHOD 09/17/2024 6:48 PM [facility] Monocytes Absolute 0.86 0.20 - 1.00 K/mcL LAB HEMETOLOGY METHOD 09/17/2024 6:[address] [facility] Eosinophils Absolute 0.03 0.00 - 0.50 K/mcL LAB HEMETOLOGY METHOD 09/17/2024 6:[address] [facility] Basophils Absolute 0.03 0.00 - 0.20 K/mcL LAB HEMETOLOGY METHOD 09/17/2024 6:[address] [facility] Immature Granulocytes Absolute 0.13(H) 0.00 - 0.03 K/mcL LAB HEMETOLOGY METHOD 09/17/2024 6:[address] [facility] Blood Venous blood specimen / Unknown Venipuncture / Unknown 09/17/2024 6:33 PM EST 09/17/2024 6:40 PM EST Silvestre Kerr DO LAB BLOOD ORDERABLES [facility] [address] [place] [address], * (ABNORMAL) Comprehensive metabolic panel (09/17/2024 6:33 PM EST) Sodium 131(L) 133 - 145 mmol/L LAB CHEMISTRY METHOD 09/17/2024 7:20 PM [facility] Potassium 3.4(L) 3.5 - 5.5 mmol/L LAB CHEMISTRY METHOD 09/17/2024 7:[address] [facility] Chloride 97 96 - 110 mmol/L LAB CHEMISTRY METHOD 09/17/2024 7:20 PM [facility] CO2 26 21 - 32 mmol/L LAB CHEMISTRY METHOD 09/17/2024 7:20 PM [facility] Anion Gap 8 3 - 11 LAB CHEMISTRY METHOD 09/17/2024 7:20 PM [facility] Glucose 81 70 - 100 mg/dL LAB CHEMISTRY METHOD 09/17/2024 7:20 PM [facility] BUN 9 5 - 25 mg/dL LAB CHEMISTRY METHOD 09/17/2024 7:20 PM [facility] Creatinine 0.18(L) 0.50 - 1.10 mg/dL LAB CHEMISTRY METHOD 09/17/2024 7:20 PM [facility] eGFR 125 >=60 mL/min/1. 73m2 LAB CHEMISTRY METHOD 09/17/2024 7:20 PM [facility] Comment:Calculation based on the??Chronic Kidney Disease Epidemiology Collaboration (CKD-EPI) equation refit??without adjustment for race. BUN/Creatinine Ratio 50.0 LAB CHEMISTRY METHOD 09/17/2024 7:20 PM [facility] Calcium 7.9(L) 8.5 - 10.5 mg/dL LAB CHEMISTRY METHOD 09/17/2024 7:20 PM [facility] AST (SGOT) 9(L) 10 - 42 unit/L LAB CHEMISTRY METHOD 09/17/2024 7:20 PM [facility] ALT (SGPT) <6(L) 10 - 60 unit/L LAB CHEMISTRY METHOD 09/17/2024 7:20 PM [facility] Alkaline Phosphatase 105 42 - 121 unit/L LAB CHEMISTRY METHOD 09/17/2024 7:20 PM [facility] Total Protein 5.8(L) 6.0 - 8.0 g/dL LAB CHEMISTRY METHOD 09/17/2024 7:20 PM [facility] Albumin 1.9(L) 3.2 - 5.0 g/dL LAB CHEMISTRY METHOD 09/17/2024 7:20 PM [facility] Total Bilirubin 0.4 0.0 - 1.4 mg/dL LAB CHEMISTRY METHOD 09/17/2024 7:20 PM [facility] Blood Venous blood specimen / Unknown Venipuncture / Unknown 09/17/2024 6:33 PM EST 09/17/2024 6:40 PM EST Silvestre Kerr DO LAB BLOOD ORDERABLES Performing Organization Address City/[facility]/ZIP Co de Phone Number [facility] [address] [place] [address], [place] [phone] * (ABNORMAL) Blood culture pathogens molecular study (09/17/2024 4:35 PM EST) [facility] Staphylococcus aureus Detected (A) Not Detected LAB MICROBIOLOGY METHOD 09/18/2024 7:[address] [facility] Blood Venous blood specimen / Unknown Venipuncture / Unknown 09/17/2024 4:35 PM EST 09/17/2024 4:46 PM EST Silvestre Kerr DO LAB MICROBIOLOGY - G ENERAL ORDERABLES Performing Organization Address [facility]/ZIP Co de Phone Number [facility] [address] [place] [address], [place] [phone] * (ABNORMAL) Blood culture (09/17/2024 4:35 PM EST) [facility] Culture, Blood Methicillin-Sensi tive Staphylococcus aureus(AA) SANDRA 09/20/2024 9:[address] [facility] Comment: Negative for PBP2a - indicates susceptible to Oxacillin The organism value for this result has been updated. These results have been appended to the previously preliminary verified report. Edited result: Previously reported as Staphylococcus aureus on 09/19/2024 at 0959 EST. Gram Stain Result Aerobic and Anaerobic bottles Gram positive cocci(AA) 09/20/2024 9:[address] [facility] Comment: This is an appended [...] DO LAB MICROBIOLOGY - G ENERAL ORDERABLES [facility] [address] [place] [address], [place] [phone] * Lactate (09/17/2024 4:35 PM EST) [facility] Lactate 1.4 0.4 - 2.0 mmol/L LAB CHEMISTRY METHOD 09/17/2024 5:[address] [facility] Blood Venous blood specimen / Unknown Venipuncture / Unknown 09/17/2024 4:35 PM EST 09/17/2024 4:47 PM EST Silvestre Kerr DO LAB BLOOD ORDERABLES Performing Organization Address [facility]/ZIP Co de Phone Number [facility] [address] [place] [address], [place] [phone] * (ABNORMAL) Blood culture (09/17/2024 4:35 PM EST) [facility] Culture, Blood Staphylococcus aureus(AA) LAB MICROBIOLOGY METHOD 09/20/2024 9:17 AM [facility] Comment: Negative for PBP2a - indicates susceptible to Oxacillin FOR SUSCEPTIBILITIES, REFER TO PREVIOUS CULTURE FROM 09-17-24 at 1635. The organism value for this result has been updated. These results have been appended to the previously preliminary verified report. Gram Stain Result Aerobic and Anaerobic bottles Gram positive cocci(AA) 09/20/2024 9:17 AM [facility] Comment: This is an appended report. These results have been appended to a previously preliminary verified report. Corrected result: Previously reported as Anaerobic bottle Gram positive cocci on 09/18/2024 at 0452 EST. Blood Venipuncture / Unknown 09/17/2024 4:35 PM EST 09/17/2024 4:48 PM EST Silvestre Kerr DO LAB MICROBIOLOGY - G ENERAL ORDERABLES [facility] [address] [place] [address], * Respiratory virus panel molecular study (09/17/2024 4:06 PM EST) [facility] Adenovirus Detection by PCR Not Detected Not Detected LAB MICROBIOLOGY METHOD 09/17/2024 5:39 PM [facility] Influenza A PCR Not Detected Not Detected LAB MICROBIOLOGY METHOD 09/17/2024 5:39 PM [facility] Influenza B PCR Not Detected Not Detected LAB MICROBIOLOGY METHOD 09/17/2024 5:39 PM [facility] Coronavirus 229E Not Detected Not Detected LAB MICROBIOLOGY METHOD 09/17/2024 5:[address] [facility] Coronavirus HKU1 Not Detected Not Detected LAB MICROBIOLOGY METHOD 09/17/2024 5:39 PM [facility] Coronavirus OC43 Not Detected Not Detected LAB MICROBIOLOGY METHOD 09/17/2024 5:39 PM [facility] Coronavirus NL63 Not Detected Not Detected LAB MICROBIOLOGY METHOD 09/17/2024 5:39 PM [facility] Parainfluenza Virus 1 Not Detected Not Detected LAB MICROBIOLOGY METHOD 09/17/2024 5:39 PM [facility] Parainfluenza Virus 2 Not Detected Not Detected LAB MICROBIOLOGY METHOD 09/17/2024 5:39 PM [facility] Parainfluenza Virus 3 Not Detected Not Detected LAB MICROBIOLOGY METHOD 09/17/2024 5:39 PM [facility] Parainfluenza Virus 4 Not Detected Not Detected LAB MICROBIOLOGY METHOD 09/17/2024 5:39 PM [facility] RSV PCR Not Detected Not Detected LAB MICROBIOLOGY METHOD 09/17/2024 5:39 PM [facility] Human Metapneumovirus A and B Not Detected Not Detected LAB MICROBIOLOGY METHOD 09/17/2024 5:39 PM [facility] Rhinovirus/Entero virus Not Detected Not Detected LAB MICROBIOLOGY METHOD 09/17/2024 5:39 PM [facility] Bordetella pertussis Not Detected Not Detected LAB MICROBIOLOGY METHOD 09/17/2024 5:39 PM [facility] Bordetella parapertussis Not Detected Not Detected LAB MICROBIOLOGY METHOD 09/17/2024 5:39 PM [facility] Mycoplasma pneumo by PCR Not Detected Not Detected LAB MICROBIOLOGY METHOD 09/17/2024 5:39 PM [facility] Chlamydia pneumoniae Not Detected Not Detected LAB MICROBIOLOGY METHOD 09/17/2024 5:39 PM [facility] SARS COV-2 Not Detected Not Detected LAB MICROBIOLOGY METHOD 09/17/2024 5:39 PM [facility] Swab Both anterior nares / Unknown Non-blood Collection / Unknown 09/17/2024 4:06 PM EST 09/17/2024 4:36 PM EST Narrative [facility]) [facility] - 09/17/2024 5:39 PM EST Testing was performed using the [employer] Respiratory Pathogen PCR Assay. All results must [...] DO LAB MICROBIOLOGY - G ENERAL ORDERABLES [facility] [address] [place] [address], documented in this encounter Visit Diagnoses Diagnosis [...] Every 8 hours scheduled, First dose on Tue09/18/24 at 2200, Enter Indication for use of [...] Given 09/22/2024 5:59 AM EST 5,000 Units L eft Lower Abdomen Given 09/21/2024 1:21 PM EST [...] documented as of this encounter Care Teams Surgical Lead Relationship Specialty Start Date End Date Dale Pinto MD [address] [place] [address] PCP - General Internal Medicine 11/10/21 documented as of this encounter
--- OUTSIDE RECORDS SUMMARY | 2024-10-01 06:23 | XMS_ITS | Encounter Summary ---
Author Organization [facility] Address [address] [place] [address] Care Team Providers Care Manager Study Name Role Phone Dale Pinto MD Primary Care Provider [phone] Encounter Details Date Type Department Care Team (Late st Contact Info) Description 07/24/2024 Lab Requisition [facility] - Main Lab 299 [facility] [place] [address] Rey Escalante MD [address] [place] [address] Acute respiratory failure with hypoxia (CMS/HCC) Social [...] differential (07/24/2024 5:40 AM EST) Pathologist [facility] WBC 13.3(H) 4.8 - 10.8 K/mcL LAB HEMETOLOGY METHOD 07/24/2024 11:58 AM [facility] RBC 4.50 3.80 - 4.80 M/mcL LAB HEMETOLOGY METHOD 07/24/2024 11:58 AM [facility] Hemoglobin 10.1(L) 11.5 - 16.0 g/dL LAB HEMETOLOGY METHOD 07/24/2024 11:58 AM [facility] Hematocrit 33.4(L) 35.0 - 47.0 % LAB HEMETOLOGY METHOD 07/24/2024 11:58 AM [facility] MCV 74.2(L) 79.0 - 98.0 FL LAB HEMETOLOGY METHOD 07/24/2024 11:58 AM [facility] MCH 22.4(L) 27.0 - 32.0 pcg LAB HEMETOLOGY METHOD 07/24/2024 11:58 AM [facility] MCHC 30.2(L) 32.0 - 37.0 g/dL LAB HEMETOLOGY METHOD 07/24/2024 11:58 AM [facility] RDW 21.2(H) 11.0 - 15.0 % LAB HEMETOLOGY METHOD 07/24/2024 11:58 AM [facility] Platelets 629(H) 130 - 400 K/mcL LAB HEMETOLOGY METHOD 07/24/2024 11:58 AM [facility] MPV 9.7 7.0 - 11.0 FL LAB HEMETOLOGY METHOD 07/24/2024 11:58 AM [facility] NRBC 0.0 <1.0 % LAB HEMETOLOGY METHOD 07/24/2024 11:58 AM [facility] NRBC Absolute 0.00 <0.10 K/mcL LAB HEMETOLOGY METHOD 07/24/2024 11:58 AM [facility] Neutrophils Relative 78.7 % LAB HEMETOLOGY METHOD 07/24/2024 11:58 AM [facility] Lymphocytes Relative 10.1 % LAB HEMETOLOGY METHOD 07/24/2024 11:58 AM [facility] Monocytes Relative 5.0 % LAB HEMETOLOGY METHOD 07/24/2024 11:58 AM [facility] Eosinophils Relative 5.3 % LAB HEMETOLOGY METHOD 07/24/2024 11:58 AM [facility] Basophils Relative 0.5 % LAB HEMETOLOGY METHOD 07/24/2024 11:58 AM [facility] Immature Granulocytes Relative 0.4 % LAB HEMETOLOGY METHOD 07/24/2024 11:58 AM [facility] Neutrophils Absolute 10.46(H) 1.50 - 7.00 K/mcL LAB HEMETOLOGY METHOD 07/24/2024 11:58 AM [facility] Lymphocytes Absolute 1.34 1.00 - 5.00 K/mcL LAB HEMETOLOGY METHOD 07/24/2024 11:58 AM EST [facility] Monocytes Absolute 0.67 0.20 - 1.00 K/[facility] LAB HEMETOLOGY METHOD 07/24/2024 11:58 AM [facility] Eosinophils Absolute 0.71(H) 0.00 - 0.50 K/[facility] LAB HEMETOLOGY METHOD 07/24/2024 11:58 AM EST [facility] Basophils Absolute 0.06 0.00 - 0.20 K/[facility] LAB HEMETOLOGY METHOD 07/24/2024 11:58 AM [facility] Immature Granulocytes Absolute 0.05(H) 0.00 - 0.03 K/[facility] LAB HEMETOLOGY METHOD 07/24/2024 11:58 AM [facility] Blood Venous blood specimen / Unknown Venipuncture / Unknown 07/24/2024 5:40 AM EST 07/24/2024 11:44 AM EST Rey Escalante MD LAB BLOOD ORDERABLES Performing Organization Address City/[facility]/ZIP Co de Phone Number [facility] [address] [place] [address], [place] [phone] * Culture blood (07/24/2024 5:40 AM EST) Culture, Blood No growth at 5 days 07/29/2024 12:01 PM EST [facility] Blood Venipuncture / Unknown 07/24/2024 5:40 AM EST 07/24/2024 11:44 AM EST Rey Escalante MD LAB MICROBIOLOGY - G ENERAL ORDERABLES [facility] [address] [place] [address], [place] [phone] * (ABNORMAL) C-reactive protein (07/24/2024 5:40 AM EST) [facility] C-Reactive Protein 6.46(H) <=0.50 mg/dL LAB CHEMISTRY METHOD 07/24/2024 1:23 PM EST [facility] Blood Venous blood specimen / Unknown Venipuncture / Unknown 07/24/2024 5:40 AM EST 07/24/2024 11:44 AM EST Rey Escalante MD LAB BLOOD ORDERABLES Performing Organization Address City/[facility]/ZIP Co de Phone Number [facility] [address] [place] [address], [place] [phone] * (ABNORMAL) Sedimentation rate (07/24/2024 5:40 AM EST) [facility] Sed Rate 125(H) 0 - 30 mm/hr LAB HEMETOLOGY METHOD 07/24/2024 12:02 PM EST [facility] Blood Venous blood specimen / Unknown Venipuncture / Unknown 07/24/2024 5:40 AM EST 07/24/2024 11:44 AM EST Rey Escalante MD LAB BLOOD ORDERABLES Performing Organization Address City/[facility]/ZIP Co de Phone Number [facility] [address] [place] [address], [place] [phone] * (ABNORMAL) Comprehensive metabolic panel (07/24/2024 5:40 AM EST) [facility] Sodium 135 133 - 145 mmol/L LAB CHEMISTRY METHOD 07/24/2024 1:27 PM EST [facility] Potassium 4.6 3.5 - 5.5 mmol/L LAB CHEMISTRY METHOD 07/24/2024 1:27 PM [facility] Chloride 99 96 - 110 mmol/L LAB CHEMISTRY METHOD 07/24/2024 1:27 PM EST [facility] CO2 26 21 - 32 mmol/L LAB CHEMISTRY METHOD 07/24/2024 1:27 PM [facility] Anion Gap 10 3 - 11 LAB CHEMISTRY METHOD 07/24/2024 1:27 PM [facility] Glucose 53(L) 70 - 100 mg/dL LAB CHEMISTRY METHOD 07/24/2024 1:27 PM [facility] BUN 10 5 - 25 mg/dL LAB CHEMISTRY METHOD 07/24/2024 1:27 PM [facility] Creatinine 0.21(L) 0.50 - 1.10 mg/dL LAB CHEMISTRY METHOD 07/24/2024 1:27 PM [facility] eGFR 120 >=60 mL/min/1. 73m2 LAB CHEMISTRY METHOD 07/24/2024 1:27 PM [facility] Comment:Calculation based on the??Chronic Kidney Disease Epidemiology Collaboration (CKD-EPI) equation refit??without adjustment for race. BUN/Creatinine Ratio 47.6 LAB CHEMISTRY METHOD 07/24/2024 1:27 PM [facility] Calcium 8.4(L) 8.5 - 10.5 mg/dL LAB CHEMISTRY METHOD 07/24/2024 1:27 PM [facility] AST (SGOT) 16 10 - 42 unit/L LAB CHEMISTRY METHOD 07/24/2024 1:27 PM [facility] ALT (SGPT) 8(L) 10 - 60 unit/L LAB CHEMISTRY METHOD 07/24/2024 1:27 PM [facility] Alkaline Phosphatase 101 42 - 121 unit/L LAB CHEMISTRY METHOD 07/24/2024 1:27 PM [facility] Total Protein 6.0 6.0 - 8.0 g/dL LAB CHEMISTRY METHOD 07/24/2024 1:27 PM [facility] Albumin 2.1(L) 3.2 - 5.0 g/dL LAB CHEMISTRY METHOD 07/24/2024 1:27 PM [facility] Total Bilirubin 0.3 0.0 - 1.4 mg/dL LAB CHEMISTRY METHOD 07/24/2024 1:27 PM EST [facility] Blood Venous blood specimen / Unknown Venipuncture / Unknown 07/24/2024 5:40 AM EST 07/24/2024 11:44 AM EST Rey Escalante MD LAB BLOOD ORDERABLES [facility] [address] [place] [address], documented in this encounter Visit Diagnoses Diagnosis [...] documented as of this encounter Care Teams Manager Study Relationship Specialty Start Date End Date Dale Pinto MD [address] [place] [address] PCP - General Internal Medicine 11/10/21 documented as of this encounter
--- OUTSIDE RECORDS SUMMARY | 2024-10-01 06:23 | XMS_ITS | Encounter Summary ---
Author Organization [facility] Address [address] [place] [address] Care Team Providers Care Ccie Name Role Phone Dale Pinto MD Primary Care Provider [phone] Encounter Details Date Type Department Care Team (Late st Contact Info) Description 07/23/2024 Lab Requisition [facility] - Main Lab [address] [facility] [place] [address] Rey Escalante MD [address] [place] [phone] Acute respiratory failure with hypoxia (CMS/HCC) Social [...] (ABNORMAL) C-reactive protein (07/23/2024 5:39 AM EST) [facility] C-Reactive Protein 6.38(H) <=0.50 mg/dL LAB CHEMISTRY METHOD 07/24/2024 10:33 AM EST [facility] Blood Venous blood specimen / Unknown Venipuncture / Unknown 07/23/2024 5:39 AM EST 07/23/2024 11:04 AM EST Rey Escalante MD LAB BLOOD ORDERABLES [facility] [address] [place] [address], * (ABNORMAL) Sedimentation rate (07/23/2024 5:39 AM EST) Pathologist [facility] Sed Rate 70(H) 0 - 30 mm/hr LAB HEMETOLOGY METHOD 07/24/2024 10:30 AM EST [facility] Blood Venous blood specimen / Unknown Venipuncture / Unknown 07/23/2024 5:39 AM EST 07/23/2024 11:04 AM EST Rey Escalante MD LAB BLOOD ORDERABLES [facility] [address] [place] [address], * (ABNORMAL) CBC auto differential (07/23/2024 5:39 AM EST) WBC 13.0(H) 4.8 - 10.8 K/mcL LAB HEMETOLOGY METHOD 07/23/2024 11:47 AM [facility] RBC 4.40 3.80 - 4.80 M/mcL LAB HEMETOLOGY METHOD 07/23/2024 11:47 AM [facility] Hemoglobin 9.9(L) 11.5 - 16.0 g/dL LAB HEMETOLOGY METHOD 07/23/2024 11:47 AM [facility] Hematocrit 32.6(L) 35.0 - 47.0 % LAB HEMETOLOGY METHOD 07/23/2024 11:47 AM [facility] MCV 74.4(L) 79.0 - 98.0 FL LAB HEMETOLOGY METHOD 07/23/2024 11:47 AM [facility] MCH 22.6(L) 27.0 - 32.0 pcg LAB HEMETOLOGY METHOD 07/23/2024 11:47 AM [facility] MCHC 30.4(L) 32.0 - 37.0 g/dL LAB HEMETOLOGY METHOD 07/23/2024 11:47 AM [facility] RDW 21.0(H) 11.0 - 15.0 % LAB HEMETOLOGY METHOD 07/23/2024 11:47 AM [facility] LAB Platelets 641(H) 130 - 400 K/mcL LAB HEMETOLOGY METHOD 07/23/2024 11:47 AM [facility] MPV 9.3 7.0 - 11.0 FL LAB HEMETOLOGY METHOD 07/23/2024 11:47 AM [facility] NRBC 0.0 <1.0 % LAB HEMETOLOGY METHOD 07/23/2024 11:47 AM [facility] NRBC Absolute 0.00 <0.10 K/mcL LAB HEMETOLOGY METHOD 07/23/2024 11:47 AM [facility] Neutrophils Relative 79.4 % LAB HEMETOLOGY METHOD 07/23/2024 11:47 AM [facility] Lymphocytes Relative 9.4 % LAB HEMETOLOGY METHOD 07/23/2024 11:47 AM [facility] Monocytes Relative 5.0 % LAB HEMETOLOGY METHOD 07/23/2024 11:47 AM [facility] Eosinophils Relative 5.2 % LAB HEMETOLOGY METHOD 07/23/2024 11:47 AM [facility] Basophils Relative 0.5 % LAB HEMETOLOGY METHOD 07/23/2024 11:47 AM [facility] Immature Granulocytes Relative 0.5 % LAB HEMETOLOGY METHOD 07/23/2024 11:47 AM [facility] Neutrophils Absolute 10.34(H) 1.50 - 7.00 K/mcL LAB HEMETOLOGY METHOD 07/23/2024 11:47 AM [facility] Lymphocytes Absolute 1.22 1.00 - 5.00 K/mcL LAB HEMETOLOGY METHOD 07/23/2024 11:47 AM [facility] Monocytes Absolute 0.65 0.20 - 1.00 K/mcL LAB HEMETOLOGY METHOD 07/23/2024 11:47 AM [facility] Eosinophils Absolute 0.68(H) 0.00 - 0.50 K/mcL LAB HEMETOLOGY METHOD 07/23/2024 11:47 AM [facility] Basophils Absolute 0.06 0.00 - 0.20 K/mcL LAB HEMETOLOGY METHOD 07/23/2024 11:47 AM [facility] Immature Granulocytes Absolute 0.07(H) 0.00 - 0.03 K/mcL LAB HEMETOLOGY METHOD 07/23/2024 11:47 AM [facility] Blood Venous blood specimen / Unknown Venipuncture / Unknown 07/23/2024 5:39 AM EST 07/23/2024 11:04 AM EST Rey Escalante MD LAB BLOOD ORDERABLES [facility] [address] [place] [address], * (ABNORMAL) Comprehensive metabolic panel (07/23/2024 5:39 AM EST) Sodium 135 133 - 145 mmol/L LAB CHEMISTRY METHOD 07/23/2024 3:03 PM [facility] Potassium 4.4 3.5 - 5.5 mmol/L LAB CHEMISTRY METHOD 07/23/2024 3:03 PM [facility] Chloride 100 96 - 110 mmol/L LAB CHEMISTRY METHOD 07/23/2024 3:03 PM [facility] CO2 27 21 - 32 mmol/L LAB CHEMISTRY METHOD 07/23/2024 3:03 PM [facility] Anion Gap 8 3 - 11 LAB CHEMISTRY METHOD 07/23/2024 3:03 PM [facility] Glucose 53(L) 70 - 100 mg/dL LAB CHEMISTRY METHOD 07/23/2024 3:03 PM [facility] BUN 8 5 - 25 mg/dL LAB CHEMISTRY METHOD 07/23/2024 3:03 PM [facility] Creatinine 0.22(L) 0.50 - 1.10 mg/dL LAB CHEMISTRY METHOD 07/23/2024 3:03 PM [facility] LAB eGFR 119 >=60 mL/min/1. 73m2 LAB CHEMISTRY METHOD 07/23/2024 3:03 PM [facility] LAB Comment:Calculation based on the??Chronic Kidney Disease Epidemiology Collaboration (CKD-EPI) equation refit??without adjustment for race. BUN/Creatinine Ratio 36.4 LAB CHEMISTRY METHOD 07/23/2024 3:03 PM [facility] Calcium 8.3(L) 8.5 - 10.5 mg/dL LAB CHEMISTRY METHOD 07/23/2024 3:03 PM [facility] AST (SGOT) 12 10 - 42 unit/L LAB CHEMISTRY METHOD 07/23/2024 3:03 PM [facility] ALT (SGPT) 6(L) 10 - 60 unit/L LAB CHEMISTRY METHOD 07/23/2024 3:03 PM [facility] Alkaline Phosphatase 102 42 - 121 unit/L LAB CHEMISTRY METHOD 07/23/2024 3:03 PM [facility] Total Protein 5.9(L) 6.0 - 8.0 g/dL LAB CHEMISTRY METHOD 07/23/2024 3:03 PM [facility] Albumin 2.1(L) 3.2 - 5.0 g/dL LAB CHEMISTRY METHOD 07/23/2024 3:03 PM [facility] Total Bilirubin 0.3 0.0 - 1.4 mg/dL LAB CHEMISTRY METHOD 07/23/2024 3:03 PM [facility] Blood Venous blood specimen / Unknown Venipuncture / Unknown 07/23/2024 5:39 AM EST 07/23/2024 11:04 AM EST Rey Escalante MD LAB BLOOD ORDERABLES [facility] [address] [place] [address], documented in this encounter Visit Diagnoses Diagnosis [...] documented as of this encounter Care Teams Ccie Relationship Specialty Start Date End Date Dale Pinto MD [address] [place] [address] PCP - General Internal Medicine 11/10/21 documented as of this encounter
--- OUTSIDE RECORDS SUMMARY | 2024-10-01 06:23 | XMS_ITS | Clinical Summary ---
Author Organization [facility] Address [address] [place] [phone] Phone Care Team Providers Care Division Field Inspector Name Role Phone Dale Pinto MD Primary Care Provider [phone] Social History Tobacco Use Types Packs/Day Years [...] Office Visit [facility] [address] [address] Yazan Albright MD [address] [phone] Health Maintenance Due Date Last Done Comments Pneumococcal Vaccine: 65+ Ye ars (1 of 2 - PCV) 1956 Influenza Vaccine (#1) 2024 Hepatitis B Vaccine Aged Out No longe r eligible based on patient's age to complete this topic Insurance MEDICARE [facility] Care Teams Division Field Inspector Relationship Specialty Start Date End Date Dale Pinto MD [address] [place] [phone] PCP - General Internal Medicine 08/27/24
--- OUTSIDE RECORDS SUMMARY | 2024-10-01 06:23 | XMS_ITS | Encounter Summary ---
Author Organization [facility] Address [address] [place] [address] Care Team Providers Care Seasoning Sprayer Name Role Phone Dale Pinto MD Primary Care Provider [phone] Encounter Details Date Type Department Care Team (Late st Contact Info) Description 07/24/2024 Lab Requisition [facility] - Main Lab 299 [facility] [place] [phone] Rey Escalante MD [address] [place] [phone] Acute respiratory failure with hypoxia (CMS/HCC) Social [...] ORDERABLES [facility] [address] [place] [address], documented in this encounter Visit Diagnoses Diagnosis [...] documented as of this encounter Care Teams Seasoning Sprayer Relationship Specialty Start Date End Date Dale Pinto MD [address] [place] [address] PCP - General Internal Medicine 11/10/21 documented as of this encounter
--- OUTSIDE RECORDS SUMMARY | 2024-10-01 06:23 | XMS_ITS | Encounter Summary ---
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) Procedures [facility] IP/OBS CARE INITIAL MODERATE LEVEL PER DAY Dennis Hagan MD [address] [place] [address] [address] Referral ID Status Reason Start Date Expiration Date Visits Re quested Visits Authorized [id number] 1 1 Encounter Details Date Type Department Care Team (Late st Contact Info) Description 09/19/2024 9:30 AM EST - 09/19/2024 11:00 AM EST Surgery [address] [address] Hneri Mcdowell MD [address] [place] [id number] ARTHROSCOPY SHOULDER WASHOUT Surgery Details Date/Time Status [...] Admitting Provider Dennis Hagan MD Discharge Provider Nnacy Kc MD, Nancy Kc MD Primary Care [...] Medications These medications were sent to [id number] - [place], [place] - [address] [facility] [address] [facility] [address] acetaminophen 500 mg tablet You can get [...] Units Date/Time MR Thoracic Spine wo Contrast [[id number]] Collected: 09/21/24826 Order Status: Completed Updated: 09/21/24852 [...] Signed Date: 09/21/2024 08:47 ET Workstation ID: [id number] Transcribed By: Self Edit Transcribed Date: 09/21/2024 08:27 ET US Extremity Nonvascular Limited Right [[id number]] Resulted: 09/18/24 1138 Order Status: No result Updated: 09/18/24 1205 US Asp Abscess/Hematoma/Bulla/Cyst [[id number]] Collected: 09/18/24 1304 Order Status: Completed Updated: [...] Signed Date: 09/19/2024 14:55 ET Workstation ID: [id number] Transcribed By: Self Edit Transcribed Date: 09/18/2024 13:09 ET Resident/PA/RELAY ASSOCIATE: Rosaura Quintanilla CT Chest/Abdomen/Pelvis w Contrast [[id number]] Collected: 09/18/24 1143 Order Status: Completed Updated: [...] Signed Date: 09/18/2024 11:58 ET Workstation ID: [id number] Transcribed By: Self Edit Transcribed Date: 09/18/2024 11:52 ET XR Chest 1 View [[id number]] Collected: 09/18/24822 Order Status: Completed Updated: 09/18/24829 [...] Signed Date: 09/18/2024 08:25 ET Workstation ID: [id number] Transcribed By: Self Edit Transcribed Date: 09/18/2024 08:[address] Upper Extremity w Contrast Right [[id number]] Collected: 09/17/242133 Order Status: Completed Updated: 09/17/242134 [...] Mcdowell - Follow up with [facility] in 2 weeks. If you [...] yourself hydrated. - Please call [facility] with any questions or concerns. [facility] [address] [place] [phone] documented in this encounter Medications at Time [...] in this encounter Progress Notes * Tia Carrnigton RN - 09/27/2024 7:44 AM EST 09/27/24 0743 Initial Transition Plan Initial Transition Plan Hospice Facility ([facility]) Discharge Planning Contact (Name, Phone #, Relationship) for DC Planning John Faye Emergency Contact [phone] Anticipated Discharge Needs Discipline following for SNF placement General Studies Program ChairClient Application Support Engineer Transportation at discharge Amb[facility] Company providing transportation [place] What day is the transport expected? 09/27/24 What time is the transport expected? 0900 Final Discharge Disposition Hospice Facility ICC updated [facility] VIA Epic, Bedside team messaged, John Faye, [...] Shift Summary: Pt refusing all medication. 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 * Delvis Eden RN [...] to her son, MD notified and diet order/DIRECTOR OF ACQUISITION MARKETING eval ordered. Pt took small amounts of soup, a few bites of ice cream and water & gingerale this shift. Son Ovi and Daughter Daniela updated. * Nancy Kc MD - 09/26/2024 3:54 PM EST Images from the original note were not included. LOUIE PROGRESS NOTE Date: 09/26/2024 Author: Nancy Kc MD Patient ID: Louann Barrientos is a 74 y.o. female : 1950 MR#: [id number] SUBJECTIVE CC: Here with R septic shoulder, bacteremia. Currently SALESPERSON SHOES. She is more alert today, aware that [...] was able to help her drink. Later DIRECTOR OF ACQUISITION MARKETING eval was requested and diet ordered. ROS: [...] planned, reviewed with CM. HCP -son John [phone] - I met him and his sister on 09/24, care reviewed. * Tia Carrington RN - 09/26/2024 3:43 PM EST 09/26/24 1542 Initial Transition Plan Initial Transition Plan Hospice Facility ([facility]) Anticipated Discharge Needs Discipline following for SNF placement General Studies Program ChairClient Application Support Engineer Transportation at discharge Ambulance Company providing transportation [place] What day is the transport expected? 09/27/24 What time is the transport expected? 0900 Final Discharge Disposition Hospice Facility [facility] planned for 09/27 @ 9AM after Pt's son delivers co-pay down payment to [facility] after work tonight. * Holli Stinson, DIRECTOR OF ACQUISITION MARKETING - 09/26/2024 2:55 PM EST Images from the original note were not included. Speech Language Pathology [facility] DIRECTOR OF ACQUISITION MARKETING BEDSIDE SWALLOW EVALUATION NAME: Louann Barrientos DATE OF : 1950 ROOM: [address] [place] [address] DIRECTOR OF ACQUISITION MARKETING Received On: 09/26/24 Aerial Photograph Interpreter Required: No TIME IN: 1400 TIME OUT: [...] LEFT LOWER EXTREMITY; Surgeon: Robbie Villagran MD;Location: [facility] MAIN OPERATING ROOM; Service: Orthopedic Trauma; Laterality: Left; OTHER SURGICAL HISTORY Left 10/16/2022 PROCEDURE:ORIF FEMORAL SHAFT FRACTURE W/ PLATES AND SCREWS;COMMENT:Procedure: REPAIR NONUNION LEFT FEMUR/ORIF LEFT FEMUR; Surgeon: Robbie Villagran MD; Location: [facility]PERATING ROOM; Service: Orthopedic Trauma; Laterality: [...] Signed Date: 09/18/2024 08:25 ET Workstation ID: [id number] Transcribed By: Self Edit Transcribed Date: 09/18/2024 08:23 ET Chest 2 View Results for orders placed during the hospital encounter of 08/08/24 XR Chest 2 Views Narrative Frontal and lateral view of the chest COMPARISON: Chest radiograph Asif 4. Chest radiograph June [address] [...] Signed Date: 08/13/2024 10:08 ET Workstation ID: [id number] Transcribed By: Self Edit Transcribed Date: 08/13/2024 10:[address] No results found for this or any previous visit. NIH Stroke Scale: ALLERGIES: Allergies Allergen Reactions Other Swelling Styrofoam Penicillins Pineapple Per Smarterer record, pt has an allergy to pineapple, [...] PO Recommended Medication Administration: Crushed (in puree) DIRECTOR OF ACQUISITION MARKETING ASSESSMENT: DIRECTOR OF ACQUISITION MARKETING Assessment Results: Swallowing impairments Dysphagia Diagnosis: (oropharyngeal dysphagia) Evaluation/Treatment Tolerance: Patient limited by fatigue Medical Staff Made Aware: Yes Comments: Disucessed w/ RN and message sent to provider CURRENT DIET: Dietary Orders (From admission, onward) Start Ordered 09/26/[address] [facility]; General, Modified Consistency Options for Liquids and Solids; Regular; IDDSI Level 5 Minced & Moist Diet effective now Question Answer Comment Location [facility] Diet Type (req) General Diet Type (req) Modified Consistency Options for Liquids and Solids General Diet Regular Modified Consistency Options for Liquids and Solids IDDSI Level 5 Minced & Moist 09/26/24 1113 PLAN OF CARE DIRECTOR OF ACQUISITION MARKETING PLAN Treatment/Interventions: Swallow function DIRECTOR OF ACQUISITION MARKETING Plan: Skilled DIRECTOR OF ACQUISITION MARKETING DIRECTOR OF ACQUISITION MARKETING Frequency: 2-5 days per week DIRECTOR OF ACQUISITION MARKETING Treatments per day: 1 time per day DIRECTOR OF ACQUISITION MARKETING - Evaluation Status: Complete Diet Recommendations: Full liquid diet DISCHARGE RECOMMENDATIONS Ongoing Skilled Speech-Language Pathology (DIRECTOR OF ACQUISITION MARKETING) services at next level of care. EDUCATION Education Documentation Modified Diet Training, taught by Holli Stinson, DIRECTOR OF ACQUISITION MARKETING at 09/26/2024 2:54 PM. Learner: Patient Readiness: [...] EST I attest that I, Norah Munroe M.S.,CCC-DIRECTOR OF ACQUISITION MARKETING, was physically involved in the ongoing assessment, decision making, and interventions provided during today's patient care session. I have reviewed all documentation for today's 09/26/24, entered by Speech Therapy Fellow, Holli Stinson, and further attest that it is an accurate clinical record of today's encounter, including accurate and appropriate charges. * Tia Carrington RN - 09/26/2024 11:19 AM EST MINERVA: ready, SALESPERSON SHOES Barriers: [facility] given contact info of family and asked to contact them to arrange payment, [facility] trying to get in contact w Pt's associate attorney to arrange payment and has been unsuccessful. [facility] called John Barrientos, Son, Emergency Contact, to see if Pt has a checkbook and can sign a check to pay [facility]. Ovi says she does and can bring it over later tonight after work. Ovi is under the impression only a bank check will suffice. ICC messaged [facility] Liaison to see if a personal check is acceptable to cover deposit. Liaison is checking w [facility] admini strators to confirm acceptance of personal check. [facility] asked if Sasha has a legal team that can assist w DPOA? SW consulted. PER SW, DPOA is for health care, if they need to navigate finances they need just a regular Power of Cask [employer], they need to ask an associate attorney to do one. I could try to find some elder law attorneys toprovide but any associate attorney can draw one. Info forwarded to [facility]. Perhaps Pt's existing Atty can assist. [...] a 74 y.o. female : 1950 MR#: [id number] SUBJECTIVE CC: Here with R septic shoulder, bacteremia. Currently SALESPERSON SHOES. She is somnolent, opens eyes on command [...] Signed Date: 09/21/2024 08:47 ET Workstation ID: [id number] Transcribed By: Self Edit Transcribed Date: 09/21/2024 [...] planned, reviewed with CM. HCP -son John [phone] - I met him and his sister on 09/24, care reviewed. * Tia Carrington RN - 09/25/2024 2:58 PM EST [facility] s/w SHIKHA Lopez and discussed [facility]. In agreement w/ [facility] pending financial arrangements with Pt's associate attorney. [facility] called [facility] aboriginal liaison officer to see if arrangements have been completed and learned theyhave not heard back from Cask Maker. * Gertrude Mackenzie - 09/25/2024 2:26 PM [...] a 74 y.o. female : 1950 MR#: [id number] SUBJECTIVE CC: Here with R septic shoulder, bacteremia. Currently SALESPERSON SHOES. Seen first time. She is somnolent, denies [...] Signed Date: 09/21/2024 08:47 ET Workstation ID: [id number] Transcribed By: Self Edit Transcribed Date: 09/21/2024 [...] -DNR/DNI Dispo -pending placement HCP -winston Lopez [phone] * Becky Busch RN - 09/24/2024 11:51 AM EST CM Progress Note MINERVA: 09/26 Barriers: Hospice informational with [facility] 09/24 pm, need to give rates of accepting facilitys to family and they will need to bring check to facility if they choose to go the hospice route. Plan: SNF ? On hospice, family meeting with [facility] Tuesday pm-patient came from [facility] and is a private pay bedhold. * JAKE Gan - 09/24/2024 11:43 AM EST Orthopedic trauma surgery progress note for right shoulder septic arthritis s/p arthroscopic debridement right shoulder. Chief Complaint Patient presents with Blood Infection . Subjective Louann has been made SALESPERSON SHOES. Found resting comfortable in bed. Assessment Septic arthritis R shoulder s/p arthroscopic debridement R shoulder Bacteremia Patient made SALESPERSON SHOES. Reinforce and change right shoulder dressing prn. [...] not able to take her home. Eloise [phone], daughter Daniela [phone] Family has chosen [facility] in [place]. Info sent to to contact son Fely * JAKE Pyle - 09/23/2024 11:02 AM EST Louann Barrientos 09/17/[birth year]24 1950 74 y.o. [id number] Bernardo Alcantara MD SUBJECTIVE : Staff reported [...] patient and patient's son have decided for [employer] [employer]. ICC updated. Pending disposition. Bacteremia Severe sepsis [...] medication including beta-stacey. This morning, patient made SALESPERSON SHOES. Case discussed with Dr Alcantara Time spent: 60 minutes. Disclaimer: Speech recognition software was utilized to dictate portions of this document. Errors in consultant luxury and auto. vice president jaguar brand (ex ) may be present. Please call / cortext [...] EST Louann Barrientos 09/17/2024 1950 74 y.o. [id number] Bernardo Alcantara MD SUBJECTIVE : Reporting inability [...] dictate portions of this document. Errors in consultant luxury and auto. vice president jaguar brand (ex ) may be present. Please call / cortext [...] Signed Date: 09/21/2024 08:47 ET Workstation ID: [id number] Transcribed By: Self Edit Transcribed Date: 09/21/2024 [...] Signed Date: 09/19/2024 14:55 ET Workstation ID: [id number] By: Self Edit Transcribed Date: 09/18/2024 13:09 ET Resident/PA/RELAY ASSOCIATE: Rosaura Quintanilla Transthoracic echocardiogram (TTE) complete with [...] Signed Date: 09/18/2024 11:58 ET Workstation ID: [id number] Transcribed By: Self Edit Transcribed Date: 09/18/2024 [...] thickening. -------- FINAL REPORT -------- Dictated By: aGbriel Arguelles Dictated Date: 09/18/2024 08:23 ET Assigned Physician: Gabriel Arguelles Reviewed and Electronically Signed By: Gabriel Arguelles Signed Date: 09/18/2024 08:25 ET Workstation ID: [id number] Transcribed By: Self Edit Transcribed Date: 09/18/2024 [...] medical history of Raynaud disease, Rheumatoid arthritis ([facility]), and Sicca ([facility]).. The patient was admitted to the hospital [...] BMP and fax to my office at [phone] Isolation: none I personally spent 35 minutes [...] OM R shoulder, washout 09/19 Dispo: from [facility]- Bed hold * JAKE Pyle - 09/21/2024 12:57 PM EST Louann Julito Barrientos 09/17/[birth year] 74 y.o. [id number] Bernardo Alcantara MD SUBJECTIVE : Reporting inability [...] dictate portions of this document. Errors in consultant luxury and auto. vice president jaguar brand (ex ) may be present. Please call / cortext [...] with and agreed to by Dr. Jeremias Leblanc PA-C * Haley Elmo, PT - 09/20/2024 1:51 PM EST [facility] Physical Therapy Evaluation & Treatment PT Discharge Recommendations: long term facility placement Staff Recommendations for safe patient [...] a 74 y.o. female admitted to [facility] on 09/17/2024. 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 MAIN OPERATING ROOM; Service: Orthopedic Trauma; Laterality: Left; OTHER SURGICAL HISTORY Left 10/16/2022 PROCEDURE:ORIF FEMORAL SHAFT FRACTURE W/ PLATES AND SCREWS;COMMENT:Procedure: REPAIR NONUNION LEFT FEMUR/ORIF LEFT FEMUR; Surgeon: Robbie Villagran MD; Location: [facility]IN [facility]PERATING RO[facility]; Service: Orthopedic Trauma; Laterality: Left; TOTAL HIP ARTHROPLASTY Right PROCEDURE:TOTAL HIP ARTHROPLASTY Social History Home Living Environment: Home Living Type of Home: [facility] Lives With: Alone Home Adaptive Equipment: Walker - rolling Home Layout: One level Home Access: Level entry Prior Function Level of Parmer: Independent with mobility and functional transfers Ambulation [...] Home Subacute rehab Prior Function Level of Parmer Needs assistance with functional transfers Ambulation Status [...] 1 time per day PT Discharge Recommendations long term facility placement PT - Evaluation Status Complete [...] a 74 y.o. 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 Pt presents with decreased BLE strength, balance deficits, decreased activity tolerance, and far below functional baseline. Pt performed bed mobility Dependent, Bedrail, HOB elevated, and Therapist assist, Transfers with Dependent and x2, None . Pt will benefit from skilled acute PT during hospital stay to improve the deficits listed above and optimize function. PT recommends long term facility placement when medically stable for safe [...] EST Louann Barrientos 09/17/2024 1950 74 y.o. [id number] Bernardo Alcantara MD SUBJECTIVE : No shoulder [...] dictate portions of this document. Errors in consultant luxury and auto. vice president jaguar brand (ex ) may be present. Please call / cortext [...] OT - 09/20/2024 11:00 AM EST [facility] Occupational Therapy Evaluation DATE: September TIME IN: 1100 TIME OUT: 1145 Pt: Louann Barrientos ROOM: [address] [place] [address] Discharge Recommendation: long term facility Equipment Recommendation: walker Staff recommendations for [...] a 74 y.o. female admitted to [facility] on 09/17/2024. Occupational Therapy evaluation and treatment ordered to assess ADL independence, safety, and functional mobility for discharge planning. 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 MAIN [facility]PERATING RO[facility]; Service: Orthopedic Trauma; Laterality: Left; OTHER SURGICAL HISTORY Left 10/16/2022 PROCEDURE:ORIF FEMORAL SHAFT FRACTURE W/ PLATES AND SCREWS;COMMENT:Procedure: REPAIR NONUNION LEFT FEMUR/ORIF LEFT FEMUR; Surgeon: Robbie Villagran MD; Location: [facility] MAIN OPERATING ROOM; Service: Orthopedic Trauma; Laterality: [...] Access Level entry Prior Function Level of Parmer Independent with mobility and functional transfers Ambulation [...] - Evaluation Status Complete OT Discharge Recommendations long term facility placement (d/c to next level of [...] - Evaluation Status: Complete OT Discharge Recommendations: long term facility placement (d/c to next level of care) Equipment Recommended: Walker-rolling Encounter Problems Encounter Problems (Active) There are no active problems. Encounter Problems (Resolved) There are no resolved problems. Norah Maya OT * JAKE Edwards - 09/20/2024 8:18 AM EST Orthopedic Trauma Progress Note CHIEF COMPLAINT Right shoulder septic arthritis SURGERY Arthroscopic I+D right shoulder on 1-15-[address] Mcdowell SUBJECTIVE Overnight: No overnight [...] Plan Initial Transition Plan (Pt is from [facility]) Discharge Planning Living Arrangements Other (Comment) Type of Residence Other (Comment) (Pt comes from [facility]) Assistive Devices Walker;Wheelchair Support Systems Children;Friends;Home care staff Anticipated Discharge Needs Discipline following for SNF placement General Studies Program Chair [facility] spoke with pt's son John. John reported pt comes from [facility] and has been in and outof rehab facilities recently. John reported he received a phone call from [facility] requestingpayment to keep her bed. John requested to get a medical update from the provider and also reported he would like to speak with his mother regarding this. [facility] notified provider of request from jewel jeronimo for an update. * JAKE Pyle - 09/19/2024 1:46 PM EST Louann Barrientos 09/17[birth year] 74 y.o. [id number] Bernardo Alcantara MD SUBJECTIVE : Patient seen [...] dictate portions of this document. Errors in consultant luxury and auto. vice president jaguar brand (ex ) may be present. Please call / cortext [...] CC: Right shoulder septic arthritis HPI: 74-year-old [id number] female R. A. 09/17/2024 admitted to [facility] for right shoulder pain Imaging study [...] onward) Start Ordered 09/19/[address] [facility]; General, Fluid Restriction, Cardiac; Regular; Fluid Restriction 1500 mL; Sodium 2 gm Restriction Diet effective now Question Answer Comment Location [facility] Diet Type (req) General Diet Type (req) [...] LEFT LOWER EXTREMITY; Surgeon: Robbie Villagran MD;Location: [facility] MAIN [facility]PERATING RO[facility]; Service: Orthopedic Trauma; Laterality: Left; OTHER SURGICAL HISTORY Left 10/16/2022 PROCEDURE:ORIF FEMORAL SHAFT FRACTURE W/ PLATES AND SCREWS;COMMENT:Procedure: REPAIR NONUNION LEFT FEMUR/ORIF LEFT FEMUR; Surgeon: Robbie Villagran MD; Location: [facility]; Service: Orthopedic Trauma; Laterality: Left; TOTAL HIP ARTHROPLASTY Right PROCEDURE:TOTAL HIP ARTHROPLASTY admitted 09/17/2024 with Septic arthritis (CMS/HCC). Food/Nutrition History: Self-selected diet(s) followed: Pt sleeping soundly this morning on attempted interview and again this evening. Pt had irrigation and debridement of shoulder today, diet resumed but pt appears too sleepy to consume dinner. Appetite DIRECTOR OF PUBLIC WORKS: Other (Comment) (limited data) Weight History: Wt Readings from Last 10 Encounters: 09/19/24 45.8 kg (101 lb) 08/14/24 47.7 kg (105 lb 3.2 oz) Subjective Assessment: Pt presents with septic arthritis, status post irrigation and debridement. Diet resumed. Has previously reported to this lead technical writer that she has burning mouth syndrome [...] Energy Estimated Needs: 30-35 kcal/kg/day for wounds, 4395-7477 kcal/day. 1.2 up to 1.5 gm/kg/day, 55-69 gm/day, fluid 25-30 ml/kg/day, 5498-6734 ml /day Height: 154.9 cm (60.98 ) Temp: 36.3 ??C (97.3 ??F) Food/Nutrition-Current Status: Intake Type: P.O. Current Diet Status: Appropriate Current Supplement Status: Other (Comment) (Not ordered, Pt known to this lead technical writer has declined supplements at times in [...] EST Louann Barrientos 09/17/2024 1950 74 y.o. [id number] Bernardo Alcantara MD SUBJECTIVE : Confused patient. [...] dictate portions of this document. Errors in consultant luxury and auto. vice president jaguar brand (ex ) may be present. 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 ([facility]) 09/17/2024 HFrEF (heart failure with reduced ejection fraction) ([facility]) 08/11/2024 NSTEMI (non-ST elevated myocardial infarction) ([facility]) 08/09/2024 Wound History: Nutritional Status: Patient is [...] Tissue Assessment Red 09/18/24 0815 Selena-Wound Assessment [place] 09/18/24 0328 Dressing Status Other (Comment) 09/18/24 0328 Wound Moisture Associated Dermatitis 09/18/24 Breast Lower;Right (Active) Wound Image 09/18/24 1059 Wound Bed Tissue Assessment Red;Excoriated 09/18/24 0815 Selena-Wound Assessment [place] 09/18/24 0329 Dressing Status Other (Comment) 09/18/24 0329 Wound Pressure Injury 09/18/24 Toe D2, Second Anterior;Right (Active) Wound Image 09/18/24 1051 Wound Bed Tissue Assessment Dry;[place] 09/18/24 0815 Selena-Wound Assessment Dry 09/18/24 0330 [...] it will hurt my skin . This lead technical writer sat with patient for 30 min and educated her on her ordered medications and antibiotics, as well as the possible side effects, pt refused all medications. This lead technical writer explained to the patient the significance of the antibiotics because of her elevated WBC and her infection and reminded her the infection could get worse without her antibiotics to which she replied I know, I will take them tomorrow . Pt made aware that this lead technical writer notified provider regarding refusal to whichpatient [...] tonight: CT Upper Extremity w Contrast Right [[id number]]Collected: 09/17/242133Order Status: CompletedUpdated: 09/17/242134Narrative: Exam: Contrast-enhanced CT [...] infectious concerns): [] Yes / [] No Supervisor Cabinetmaker: [] Yes / [] No If YES, Cardiac Rhythm: [] NSR, [] SB, [] ST, [] A-FIB, [] A-Flutter, [] Pacemaker, [] 1st Degree HB, [] 2nd Degree HB, [] 3rd Degree HB Reason for Supervisor Cabinetmaker: VS: Visit Vitals BP (!) 143/62 (BP [...] see chart Submitted by and Phone Extension: [phone] * Gabriel Pang RN - 09/17/2024 3:45 PM EST Patient coming from [facility] with elevated wbc. Unknown source * Rich Varner MD - 09/17/2024 3:37 PM EST Emergency Medicine Note Patient Name: Louann Barrientos Initial Evaluation: 09/17/2024 : 1950 Patient's PCP: Dale Pinto MD Emergency Physician: Rich Varner MD History of Present Illness Chief Complaint: Chief Complaint Patient presents with Blood Infection HPI: 74-year-old female with history of rheumatoid arthritis sent by Dr. Gamez at [facility] with concerns about possible right shoulder septic [...] LEFT LOWER EXTREMITY; Surgeon: Robbie Villagran MD;Location: [facility] MAIN OPERATING ROOM; Service: Orthopedic Trauma; Laterality: Left; OTHER SURGICAL HISTORY Left 10/16/2022 PROCEDURE:ORIF FEMORAL SHAFT FRACTURE W/ PLATES AND SCREWS;COMMENT:Procedure: REPAIR NONUNION LEFT FEMUR/ORIF LEFT FEMUR; Surgeon: Robbie Villagran MD; Location: [facility] MAIN OPERATING ROOM; Service: Orthopedic Trauma; Laterality: [...] Detected Narrative: Testing was performed using the [employer] Respiratory Pathogen PCR Assay. All results must [...] Procedure Abnormality Status --------- ------ CBC auto differential[[id number]] In process Please view results for these tests on the individual orders. COMPREHENSIVE METABOLIC PANEL URINALYSIS WITH REFLEX MICROSCOPIC AND CULTURE Narrative: The following orders were created for panel order Urinalysis with reflex microscopic and culture. Procedure Abnormality Status --------- ------ Urinalysis with reflex ...[[id number]] Waters urine culture tube[[id number]] Please view results for these tests on [...] of right shoulder due to other bacteria ([facility]) 74-year-old female with acute right shoulder pain. Differential to include traumatic, rheumatoid arthritis, septic arthritis, strain, contusion Plan was already set in place prior to arrival. She is to get a CAT scan of her right shoulder and admission to [place] to consider antibiotics after cultures. Procedures Procedures Diagnosis 1. 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 ([facility]) Disposition Admit to Inpatient ED Prescriptions None Physician Attestation Rich Varner MD 09/17/24 1852 documented in this encounter H&P Notes * JAKE Carrero - 09/17/2024 6:05 PM EST Images from the original note were not included. [facility] HISTORY AND PHYSICAL Please contact author [JAKE Mota] via Slipstream/Vaybee. Patient: Louann Barrientos Admission Date/Time: 09/17/2024 3:44 PM : 1950 [74 y.o.] Patient's PCP: Dale Pinto MD Attending Provider: Rich Varner MD;Nerm* CHIEF COMPLAINT: Right shoulder septic arthritis r/o HPI: 74-year-old female with PMH of rheumatoid arthritis, HFrEF, Sjogren's syndrome, chronic anemia, Raynaud's syndrome and anxiety presents to the ED from [facility] for concern for right shoulder septic arthritis [...] the medial aspect She states a nurse assistant director of security was helping her stand and had discomfort [...] arthritis r/o Patient presented for leukocytosis from [facility] for concern of elevated WBC 19k and XR that showed an effusion of the right shoulder She did report a few days ago having a GUEST EXPERIENCE REPRESENTATIVE help her w/ a transfer which resulted [...] twice daily FULL CODE HCP: winston Lopez [phone] PPX: Pneumoboots Case and plan discussed with: [...] 19 BMI Class: Normal UBW (lbs): ([facility], weight listed at 48 kg 06/27/24, now listed at 44.5 kg, possible loss of 5% over 3 months) Current Diet and Supplements: Dietary Orders (From admission, onward) Start Ordered 09/21/24 0958 Dietary nutrition supplements Three times daily (TID); [facility]; Standard Small Volume Continuous Comments: Vary flavor Question Answer Comment Frequency Three times daily (TID) Location [facility] Supplements Standard Small Volume 09/21/24 0958 09/19/[address] [facility]; General, Fluid Restriction, Cardiac; Regular; Fluid Restriction 1500 mL; Sodium 2 gm Restriction Diet effective now Question Answer Comment Location [facility] Diet Type (req) General Diet Type (req) [...] LEFT LOWER EXTREMITY; Surgeon: Robbie Villagran MD;Location: [facility] MAIN [facility]PERATING ROOM; Service: Orthopedic Trauma; Laterality: Left; OTHER SURGICAL HISTORY Left 10/16/2022 PROCEDURE:ORIF FEMORAL SHAFT FRACTURE W/ PLATES AND SCREWS;COMMENT:Procedure: REPAIR NONUNION LEFT FEMUR/ORIF LEFT FEMUR; Surgeon: Robbie Villagran MD; Location: [facility]PERATING RO[facility]; Service: Orthopedic Trauma; Laterality: Left; TOTAL HIP ARTHROPLASTY Right PROCEDURE:TOTAL HIP ARTHROPLASTY admitted 09/17/2024 with Septic arthritis ([facility]). Food/Nutrition History: Self-selected diet(s) followed: PT provided only a breif interview before stating she was not up for talking this afternoon. Per Travel Notes record, pt had allergy to pineapple (entered) [...] report that she likes Big Macs. Appetite DIRECTOR OF PUBLIC WORKS: Other (Comment) (limited data) Weight History: Wt [...] Energy Estimated Needs: 30-35 kcal/kg/day for wounds, 9369-1234 kcal/day. 1.2 up to 1.5 gm/kg/day, 55-69 gm/day, fluid 25-30 ml/kg/day, 3766-7027 ml /day Height: 154.9 cm (60.98 ) Temp: 36.3 ??C (97.3 ??F) Food/Nutrition-Current Status: Intake Type: P.O. 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 and Discussed with provider(s) via Slipstream Secure Chat/Haiku regarding supplement. Monitoring/Evaluation: Fluid/Beverage Intake, [...] Raynaud disease, Rheumatoid arthritis (CMS/HCC), and Sicca ([facility]).. The patient was admitted to the hospital [...] Date Raynaud disease DX:Raynaud disease Rheumatoid arthritis ([facility]) DX:Rheumatoid arthritis ([facility]) Sicca ([facility]) DX:Sicca ([facility]) Surgical History: Past Surgical History: Procedure Laterality Date LEG SURGERY Left 11/16/2022 PROCEDURE:LEG SURGERY;COMMENT:Procedure: I&D LEFT LOWER EXTREMITY; Surgeon: Robbie Villagran MD;Location: [facility] MAIN OPERATING ROOM; Service: Orthopedic Trauma; Laterality: Left; OTHER SURGICAL HISTORY Left 10/16/2022 PROCEDURE:ORIF FEMORAL SHAFT FRACTURE W/ PLATES AND SCREWS;COMMENT:Procedure: REPAIR NONUNION LEFT FEMUR/ORIF LEFT FEMUR; Surgeon: Robbie Villagran MD; Location: [facility]IN [facility]PERATING ROOM; Service: Orthopedic Trauma; Laterality: [...] 09/18/2024 318 QTc 09/18/2024 449 P Wave Star 09/18/2024 58 R Star 09/18/2024 6 T Star 09/18/2024 29 ECG Interpretation 09/18/2024 Value:Sinus tachycardia Minimal voltage criteria for LVH, may be normal variant Borderline ECG When compared with ECG of 09-AUG-2024 02:15, Nonspecific T wave abnormality no longer evident in Anterior leads Lab Results Component Value Date BLOODX Culture in progress 09/18/2024 BLOODCX Culture in [...] Signed Date: 09/18/2024 11:58 ET Workstation ID: [id number] Transcribed By: Self Edit Transcribed Date: 09/18/2024 [...] Signed Date: 09/18/2024 08:25 ET Workstation ID: [id number] Transcribed By: Self Edit Transcribed Date: 09/18/2024 08:23 ET Assessment/Plan Louann Barrientos is a 74 y.o. female who has a past medical history of Raynaud disease, Rheumatoid arthritis ([facility]), and Sicca ([facility]).. The patient was admitted to the hospital [...] Rheumatoid arthritis (CMS/HCC), and Sicca (CMS/[facility]). Surgical History She has a past surgical [...] effusion so patient presented to [facility] ED. On arrival, vitals were remarkable for [...] medical history of Raynaud disease, Rheumatoid arthritis ([facility]), and Sicca ([facility]). PAST SURGICAL HISTORY She has a past [...] Signed Date: 09/18/2024 08:25 ET Workstation ID: [id number] Transcribed By: Self Edit Transcribed Date: 09/18/2024 [...] LAB CHEMISTRY METHOD 09/24/2024 8:43 AM EST [facility] Blood Venous blood specimen / Unknown Venipuncture / Unknown 09/24/2024 7:45 AM EST 09/24/2024 8:10 AM EST Freya JOSEPH LAB BLOOD ORDERABLES [facility] [address] [place] [address], * (ABNORMAL) POCT Glucose, blood (09/23/2024 11:09 AM EST) Glucose POCT 126(H) 70 - 100 mg/dL 09/23/2024 11:11 AM EST [facility] Blood Capillary blood specimen / Unknown 09/23/2024 11:09 AM EST 09/23/2024 11:12 AM EST Bernardo Alcantara MD LAB POINT OF CARE TE ST DOCKED DEVICE UNSOLICITED RESULTS [facility] [address] [place] [address], [place] [phone] * (ABNORMAL) POCT Glucose, blood (09/23/2024 8:21 AM EST) [facility] Glucose POCT 129(H) 70 - 100 mg/dL 09/23/2024 8:22 AM EST [facility] Blood Capillary blood specimen / Unknown 09/23/2024 8:21 AM EST 09/23/2024 8:23 AM EST Bernardo Alcantara MD LAB POINT OF CARE TE ST DOCKED DEVICE UNSOLICITED RESULTS Performing Organization Address City/[facility]/ZIP Co de Phone Number [facility] [address] [place] [address], [place] [phone] * (ABNORMAL) CBC auto differential (09/23/2024 5:30 AM EST) [facility] WBC 15.9(H) 4.8 - 10.8 K/[facility] LAB HEMETOLOGY METHOD 09/23/2024 6:48 AM EST [facility] RBC 3.70(L) 3.80 - 4.80 M/[facility] LAB HEMETOLOGY METHOD 09/23/2024 6:48 AM EST [facility] Hemoglobin 8.3(L) 11.5 - 16.0 g/dL LAB HEMETOLOGY METHOD 09/23/2024 6:48 AM [facility] Hematocrit 28.0(L) 35.0 - 47.0 % LAB HEMETOLOGY METHOD 09/23/2024 6:48 AM EST [facility] MCV 75.1(L) 79.0 - 98.0 [...] LAB HEMETOLOGY METHOD 09/23/2024 6:48 AM EST [facility] Neutrophils Absolute 13.49(H) 1.50 - 7.00 K/mcL LAB HEMETOLOGY METHOD 09/23/2024 6:48 AM EST [facility] Lymphocytes Absolute 1.20 1.00 - 5.00 K/mcL LAB HEMETOLOGY METHOD 09/23/2024 6:48 AM EST [facility] Monocytes Absolute 1.04(H) 0.20 - 1.00 K/mcL LAB HEMETOLOGY METHOD 09/23/2024 6:48 AM EST [facility] Eosinophils Absolute 0.00 0.00 - 0.50 K/mcL LAB HEMETOLOGY METHOD 09/23/2024 6:48 AM EST [facility] Basophils Absolute 0.03 0.00 - 0.20 K/mcL LAB HEMETOLOGY METHOD 09/23/2024 6:48 AM EST [facility] Immature Granulocytes Absolute 0.17(H) 0.00 - 0.03 K/mcL LAB HEMETOLOGY METHOD 09/23/2024 6:48 AM EST [facility] Blood Venous blood specimen / Unknown Venipuncture / Unknown 09/23/2024 5:30 AM EST 09/23/2024 6:32 AM EST Abran JOSEPH LAB BLOOD ORDERAB LES [facility] [address] [place] [address], * (ABNORMAL) Basic metabolic panel (09/23/2024 5:30 AM EST) Sodium 143 133 - 145 mmol/L LAB CHEMISTRY METHOD 09/23/2024 7:38 AM EST [facility] Potassium 3.8 3.5 - 5.5 [...] EST Abran JOSEPH LAB BLOOD ORDERAB LES [facility] [address] [place] [address], * POCT Glucose, blood (09/22/2024 9:12 PM EST) Glucose POCT 96 70 - 100 mg/dL 09/22/2024 9:13 PM EST [facility] Blood Capillary blood specimen / Unknown 09/22/2024 9:12 PM EST 09/22/2024 9:14 PM EST Bernardo Alcantara MD LAB POINT OF CARE TE ST DOCKED DEVICE UNSOLICITED RESULTS [facility] [address] [place] [address], [place] [phone] * POCT Glucose, blood (09/22/2024 5:07 PM EST) Glucose POCT 100 70 - 100 mg/dL 09/22/2024 5:07 PM EST [facility] Blood Capillary blood specimen / Unknown 09/22/2024 5:07 PM EST 09/22/2024 5:08 PM EST Bernardo Alcantara MD LAB POINT OF CARE TE ST DOCKED DEVICE UNSOLICITED RESULTS Performing Organization Address City/[facility]/ZIP Co de Phone Number [facility] [address] [place] [address], [place] [phone] * POCT Glucose, blood (09/22/2024 12:38 PM EST) Glucose POCT 92 70 - 100 mg/dL 09/22/2024 3:11 PM EST [facility] Blood Capillary blood specimen / Unknown 09/22/2024 12:38 PM EST 09/22/2024 3:12 PM EST Bernardo Alcantara MD LAB POINT OF CARE TE ST DOCKED DEVICE UNSOLICITED RESULTS Performing Organization Address City/[facility]/ZIP Co de Phone Number [facility] [address] [place] [address], [place] [phone] * POCT Glucose, blood (09/22/2024 8:21 AM EST) Glucose POCT 85 70 - 100 mg/dL 09/22/2024 8:22 AM [facility] Blood Capillary blood specimen / Unknown 09/22/2024 8:21 AM EST 09/22/2024 8:23 AM EST Bernardo Alcantara MD LAB POINT OF CARE TE ST DOCKED DEVICE UNSOLICITED RESULTS [facility] [address] [place] [address], * (ABNORMAL) CBC auto differential (09/22/2024 5:59 AM EST) Pathologist [facility] WBC 13.0(H) 4.8 - 10.8 K/mcL LAB [...] 7:21 AM [facility] Neutrophils Absolute 10.99(H) 1.50 - 7.00 K/mcL LAB HEMETOLOGY METHOD 09/22/2024 7:21 AM [facility] Lymphocytes Absolute 1.01 1.00 - 5.00 K/mcL LAB HEMETOLOGY METHOD 09/22/2024 7:21 AM EST [facility] Monocytes Absolute 0.89 0.20 - 1.00 K/[facility] LAB HEMETOLOGY METHOD 09/22/2024 7:21 AM [facility] Eosinophils Absolute 0.00 0.00 - 0.50 K/[facility] LAB HEMETOLOGY METHOD 09/22/2024 7:21 AM [facility] Basophils Absolute 0.01 0.00 - 0.20 K/[facility] LAB HEMETOLOGY METHOD 09/22/2024 7:21 AM [facility] Immature Granulocytes Absolute 0.14(H) 0.00 - 0.03 K/mcL LAB HEMETOLOGY METHOD 09/22/2024 7:21 AM [facility] Blood Venous blood specimen / Unknown Venipuncture / Unknown 09/22/2024 5:59 AM EST 09/22/2024 7:03 AM EST Abran JOSEPH LAB BLOOD ORDERAB LES [facility] [address] [place] [address], * (ABNORMAL) CBC - Every 3 Days [...] LAB HEMETOLOGY METHOD 09/22/2024 7:21 AM EST [facility] MCV 73.0(L) 79.0 - 98.0 [...] EST Abran JOSEPH LAB BLOOD ORDERAB LES [facility] [address] [place] [address], * (ABNORMAL) Basic metabolic panel (09/22/2024 5:59 AM EST) [facility] Sodium 142 133 - 145 mmol/L LAB CHEMISTRY METHOD 09/22/2024 8:50 AM [facility] Potassium 3.5 3.5 - 5.5 [...] 09/22/2024 8:50 AM [facility] Blood Venous blood specimen / Unknown Venipuncture / Unknown 09/22/2024 5:59 AM EST 09/22/2024 7:07 AM EST Abran JOSEPH LAB BLOOD ORDERAB LES [facility] [address] [place] [address], [place] [phone] * POCT Glucose, blood (09/21/2024 8:09 PM EST) Glucose POCT 92 70 - 100 mg/dL 09/21/2024 8:10 PM EST [facility] Blood Capillary blood specimen / Unknown 09/21/2024 8:09 PM EST 09/21/2024 8:11 PM EST Bernardo Alcantara MD LAB POINT OF CARE TE ST DOCKED DEVICE UNSOLICITED RESULTS [facility] [address] [place] [address], [place] [phone] * POCT Glucose, blood (09/21/2024 6:45 PM EST) Glucose POCT 78 70 - 100 mg/dL 09/21/2024 6:45 PM EST [facility] Blood Capillary blood specimen / Unknown 09/21/2024 6:45 PM EST 09/21/2024 6:47 PM EST Bernardo Alcantara MD LAB POINT OF CARE TE ST DOCKED DEVICE UNSOLICITED RESULTS Performing Organization Address City/[facility]/ZIP Co de Phone Number [facility] [address] [place] [address], [place] [phone] * POCT Glucose, blood (09/21/2024 12:20 PM EST) Glucose POCT 88 70 - 100 mg/dL 09/21/2024 12:22 PM EST [facility] Blood Capillary blood specimen / Unknown 09/21/2024 12:20 PM EST 09/21/2024 12:23 PM EST Bernardo Alcantara MD LAB POINT OF CARE TE ST DOCKED DEVICE UNSOLICITED RESULTS Performing Organization Address [facility] Co de Phone Number [facility]ONLesvia [facility] [address] [place] [address], [place] [phone] * ECG 12 lead (09/21/2024 10:37 AM EST) [facility] Ventricular Rate ECG 88 BPM GEMUSE Atrial Rate 88 BPM GEMUSE P-R Interval 146 ms GEMUSE QRS Duration 92 ms GEMUSE Q-T Interval 380 ms GEMUSE QTc 459 ms GEMUSE P Wave Star 40 degrees GEMUSE R Star 1 degrees GEMUSE T Star 37 degrees GEMUSE ECG Interpretation Sinus rhythm [...] Abran JOSEPH ECG ORDERABLES Performing Organization Address [facility] Phone Number GEMUSE * POCT Glucose, blood (09/21/2024 9:17 AM EST) [facility] Glucose POCT 73 70 - 100 mg/dL 09/21/2024 9:17 AM EST [facility] Blood Capillary blood specimen / Unknown 09/21/2024 9:17 AM EST 09/21/2024 9:19 AM EST Bernardo Alcantara MD LAB POINT OF CARE TE ST DOCKED DEVICE UNSOLICITED RESULTS Performing Organization Address [facility] Co de Phone Number [facility] [address] [place] [address], [place] [phone] * (ABNORMAL) CBC auto differential (09/21/2024 6:22 AM EST) [facility] WBC 17.6(H) 4.8 - 10.8 K/mcL LAB HEMETOLOGY METHOD 09/21/2024 8:37 AM [facility] RBC 3.40(L) 3.80 - 4.80 M/[facility] HEMETOLOGY METHOD 09/21/2024 8:37 AM [place] [...] EST Abran JOSEPH LAB BLOOD ORDERAB LES [facility] [address] [place] [address], [place] [phone] * (ABNORMAL) Basic metabolic panel (09/21/2024 6:22 AM EST) Sodium 140 133 - 145 mmol/L LAB CHEMISTRY METHOD 09/21/2024 8:24 AM EST [facility] Potassium 3.8 3.5 - 5.5 mmol/L LAB CHEMISTRY METHOD 09/21/2024 8:24 AM [facility] Chloride 104 96 - 110 mmol/L LAB CHEMISTRY METHOD 09/21/2024 8:24 AM [facility] CO2 25 21 - 32 mmol/L LAB CHEMISTRY METHOD 09/21/2024 8:24 AM EST [facility] Anion Gap 11 3 - [...] 73m2 LAB CHEMISTRY METHOD 09/21/2024 8:24 AM [facility] Comment:Calculation based on the??Chronic Kidney Disease Epidemiology Collaboration (CKD-EPI) equation refit??without adjustment for race. BUN/Creatinine Ratio 80.0 LAB CHEMISTRY METHOD 09/21/2024 8:24 AM [facility] Calcium 8.0(L) 8.5 - 10.5 mg/dL LAB CHEMISTRY METHOD 09/21/2024 8:24 AM EST [facility] Blood Venous blood specimen / Unknown Venipuncture / Unknown 09/21/2024 6:22 AM EST 09/21/2024 7:53 AM EST Abran JOSEPH LAB BLOOD ORDERAB LES [facility] [address] [place] [address], * MR Thoracic Spine wo Contrast (09/20/2024 [...] Signed Date: 09/21/2024 08:47 ET Workstation ID: [id number] Transcribed By: Self Edit Transcribed Date: 09/21/2024 [...] Signed Date: 09/21/2024 08:47 ET Workstation ID: [id number] Transcribed By: Self Edit Transcribed Date: 09/21/2024 08:27 ET Abran JOSEPH IMG MRI PROCEDURE S * (ABNORMAL) RBC morphology review (09/20/2024 8:38 AM EST) Rbc Morphology See comment( A) Consistent with indices, Normal for LAB HEMETOLOGY METHOD 09/20/2024 10:07 AM EST [facility] Comment:RBC: Morphology agre es with CBC Platelet Morphology - WAM See Note(A) Normal LAB HEMETOLOGY METHOD 09/20/2024 10:07 AM EST [facility] Comment:PLT: Normal Blood Venous blood specimen / Unknown Venipuncture / Unknown 09/20/2024 8:38 AM EST 09/20/2024 9:05 AM EST Abran JOSEPH LAB BLOOD ORDERAB LES [facility] [address] [place] [address], * (ABNORMAL) CBC auto differential (09/20/2024 8:38 AM EST) WBC 28.2(H) 4.8 - 10.8 K/mcL LAB HEMETOLOGY METHOD 09/20/2024 10:07 AM EST [facility] RBC 3.90 3.80 - 4.80 M/mcL LAB HEMETOLOGY METHOD 09/20/2024 10:07 AM EST [facility] Hemoglobin 8.8(L) 11.5 - 16.0 g/dL LAB HEMETOLOGY METHOD 09/20/2024 10:07 AM EST [facility] Hematocrit 29.5(L) 35.0 - 47.0 [...] LAB HEMETOLOGY METHOD 09/20/2024 10:07 AM EST [facility] Comment:This is an appended report. These results have been appended to a previously preliminary verified report. Blood Venous blood specimen / Unknown Venipuncture / Unknown 09/20/2024 8:38 AM EST 09/20/2024 9:05 AM EST Abran JOSEPH LAB BLOOD ORDERAB LES Performing Organization Address City/[facility]/ZIP Co de Phone Number [facility] [address] [place] [address], [place] [phone] * (ABNORMAL) Sedimentation rate (09/20/2024 8:38 AM EST) Sed Rate 121(H) 0 - 30 mm/hr LAB HEMETOLOGY METHOD 09/20/2024 9:31 AM EST [facility] Blood Venous blood specimen / Unknown Venipuncture / Unknown 09/20/2024 8:38 AM EST 09/20/2024 9:05 AM EST Emiliano JOSEPH LAB BLOOD ORDERABLE S [facility] [address] [place] [address], [place] [phone] * POCT Glucose, blood (09/20/2024 8:01 AM EST) Glucose POCT 99 70 - 100 mg/dL 09/20/2024 8:05 AM EST [facility] Blood Capillary blood specimen / Unknown 09/20/2024 8:01 AM EST 09/20/2024 8:06 AM EST Bernardo Alcantara MD LAB POINT OF CARE TE ST DOCKED DEVICE UNSOLICITED RESULTS [facility] [address] [place] [address], [place] [phone] * (ABNORMAL) C-reactive protein (09/20/2024 5:43 AM EST) Pathologist [facility] C-Reactive Protein 15.60(H) <=0.50 mg/dL LAB CHEMISTRY METHOD 09/20/2024 7:18 AM EST [facility] Blood Venous blood specimen / Unknown Venipuncture / Unknown 09/20/2024 5:43 AM EST 09/20/2024 6:38 AM EST Emiliano JOSEPH LAB BLOOD ORDERABLE S [facility] [address] [place] [address], [place] [phone] * (ABNORMAL) Basic metabolic panel (09/20/2024 5:43 AM EST) [facility] Sodium 137 133 - 145 mmol/L LAB CHEMISTRY METHOD 09/20/2024 7:21 AM [facility] Potassium 4.3 3.5 - 5.5 mmol/L LAB CHEMISTRY METHOD 09/20/2024 7:21 AM [facility] Chloride 105 96 - 110 mmol/L LAB CHEMISTRY METHOD 09/20/2024 7:21 AM [facility] CO2 22 [...] EST Emiliano JOSEPH LAB BLOOD ORDERABLE S [facility] [address] [place] [address], [place] [phone] * (ABNORMAL) POCT Glucose, blood (09/19/2024 11:48 PM EST) Glucose POCT 110(H) 70 - 100 mg/dL 09/19/2024 11:49 PM EST [facility] Blood Capillary blood specimen / Unknown 09/19/2024 11:48 PM EST 09/19/2024 11:50 PM EST Bernardo Alcantara MD LAB POINT OF CARE TE ST DOCKED DEVICE UNSOLICITED RESULTS [facility] [address] [place] [address], [place] [phone] * POCT Glucose, blood (09/19/2024 4:46 PM EST) Glucose POCT 98 70 - 100 mg/dL 09/19/2024 4:47 PM EST [facility] Blood Capillary blood specimen / Unknown 09/19/2024 4:46 PM EST 09/19/2024 4:49 PM EST Bernardo Alcantara MD LAB POINT OF CARE TE ST DOCKED DEVICE UNSOLICITED RESULTS [facility] [address] [place] [address], [place] [phone] * Culture blood (09/19/2024 4:34 PM EST) Culture, Blood No growth at 5 days LAB MICROBIOLOGY METHOD 09/24/2024 5:01 PM EST [facility] Blood Specimen from bone marrow obtained by aspiration / Unknown Venipuncture / Unknown 09/19/2024 4:34 PM EST 09/19/2024 4:41 PM EST Abran JOSEPH LAB MICROBIOLOGY - GENERAL ORDERABLES Performing Organization Address City/[facility]/ZIP Co de Phone Number [facility] [address] [place] [address], [place] [phone] * Culture blood (09/19/2024 4:29 PM EST) Culture, Blood No growth at 5 days LAB MICROBIOLOGY METHOD 09/24/2024 5:01 PM EST [facility] Blood Venous blood specimen / Unknown Venipuncture / Unknown 09/19/2024 4:29 PM EST 09/19/2024 4:40 PM EST Abran JOSEPH LAB MICROBIOLOGY - GENERAL ORDERABLES [facility] [address] [place] [address], [place] [phone] * (ABNORMAL) POCT Glucose, blood (09/19/2024 4:13 PM EST) Glucose POCT 107(H) 70 - 100 mg/dL 09/19/2024 4:14 PM EST [facility] Blood Capillary blood specimen / Unknown 09/19/2024 4:13 PM EST 09/19/2024 4:15 PM EST Bernardo Alcantara MD LAB POINT OF CARE TE ST DOCKED DEVICE UNSOLICITED RESULTS [facility] [address] [place] [address], [place] [phone] * POCT Glucose, blood (09/19/2024 12:51 PM EST) [facility] Glucose POCT 76 70 - 100 mg/dL 09/19/2024 12:52 PM EST [facility] POCT Comment RN Notified 09/19/2024 12:52 PM EST [facility] Blood Capillary blood specimen / Unknown 09/19/2024 12:51 PM EST 09/19/2024 12:53 PM EST Bernardo Alcantara MD LAB POINT OF CARE TE ST DOCKED DEVICE UNSOLICITED RESULTS [facility] [address] [place] [address], [place] [phone] * (ABNORMAL) Culture body fluid with gram stain (09/19/2024 10:31 AM EST) [facility] Fluid Culture Methicillin-Sensiti ve Staphylococcus aureus(A) SANDRA 09/23/2024 10:05 AM EST [facility] Comment: The organism value for this result has been updated. These results have been appended to the previously preliminary verified report. Edited result: Previously reported as Staphylococcus aureus on 09/20/2024 at 1312 EST. Gram Stain Result No epithelial cells seen(A) 09/23/2024 10:05 AM EST [facility] Gram Stain Result Many Polymorphonuclear leukocytes(A) 09/23/2024 10:05 AM EST [facility] Gram Stain Result Few Gram positive cocci in clusters(A) 09/23/2024 10:05 AM EST [facility] Synovial Fluid Structure of right [...] Mcdowell MD LAB MICROBIOLOGY - GENERAL ORDERABLES [facility] ([facility]) [facility] [address] [place] [address], * (ABNORMAL) CBC auto differential (09/19/2024 8:08 AM EST) [facility] Signature WBC 26.0(H) 4.8 - 10.8 K/mcL LAB [...] LAB HEMETOLOGY METHOD 09/19/2024 9:05 AM EST [facility] Comment:This is an appended report. These results have been appended to a previously preliminary verified report. Eosinophils Absolute 0.02 0.00 - 0.50 [facility] 09/19/2024 9:05 AM EST [facility] Comment:This is an appended report. These results have been appended to a previously preliminary verified report. Basophils Absolute 0.04 0.00 - 0.20 [facility] 09/19/2024 9:05 AM EST [facility] Comment:This is an appended report. These results have been appended to a previously preliminary verified report. Immature Granulocytes Absolute 0.19(H) 0.00 - 0.03 [facility] 09/19/2024 9:05 AM EST [facility] Comment:This is an appended report. These results have been appended to a previously preliminary verified report. Blood Venous blood specimen / Unknown Venipuncture / Unknown 09/19/2024 8:08 AM EST 09/19/2024 8:32 AM EST Abran Solis SD LAB BLOOD ORDERAB LES [facility] [address] [place] [address], * POCT Glucose, blood (09/19/2024 7:48 AM EST) Glucose POCT 81 70 - 100 mg/dL 09/19/2024 7:49 AM EST [facility] POCT Comment RN Notified 09/19/2024 7:49 AM EST [facility] Blood Capillary blood specimen / Unknown 09/19/2024 7:48 AM EST 09/19/2024 7:50 AM EST Bernardo Alcantara MD LAB POINT OF CARE TE ST DOCKED DEVICE UNSOLICITED RESULTS [facility] [address] [place] [address], [place] [phone] * (ABNORMAL) Magnesium (09/19/2024 5:46 AM EST) Magnesium 1.8(L) 1.9 - 2.6 mg/dL LAB CHEMISTRY METHOD 09/19/2024 7:36 AM EST [facility] Blood Venous blood specimen / Unknown Venipuncture / Unknown 09/19/2024 5:46 AM EST 09/19/2024 6:51 AM EST Abran JOSEPH LAB BLOOD ORDERAB LES Performing Organization Address [facility]/ZIP Co de Phone Number [facility] [address] [place] [address], [place] [phone] * (ABNORMAL) Comprehensive metabolic panel (09/19/2024 5:46 AM EST) Sodium 137 133 - 145 mmol/L LAB CHEMISTRY METHOD 09/19/2024 7:38 AM [facility] Potassium 3.9 3.5 - 5.5 mmol/L LAB CHEMISTRY METHOD 09/19/2024 7:38 AM [facility] Chloride 102 96 - 110 mmol/L LAB CHEMISTRY METHOD 09/19/2024 7:38 AM [facility] CO2 23 21 - 32 [...] 09/19/2024 7:38 AM [facility] Blood Venous blood specimen / Unknown Venipuncture / Unknown 09/19/2024 5:46 AM EST 09/19/2024 6:51 AM EST Abran JOSEPH LAB BLOOD ORDERAB LES Performing Organization Address City/[facility]/ZIP Co de Phone Number [facility] [address] [place] [address], [place] [phone] * Culture blood (09/18/2024 5:59 PM EST) Culture, Blood No growth at 5 days LAB MICROBIOLOGY METHOD 09/23/2024 7:01 PM EST [facility] Blood Venous blood specimen / Unknown Venipuncture / Unknown 09/18/2024 5:59 PM EST 09/18/2024 5:59 PM EST Stacia Lewis MD LAB MICROBIOLOGY - G ENERAL ORDERABLES Performing Organization Address [facility]/ZIP Co de Phone Number [facility] [address] [place] [address], [place] [phone] * (ABNORMAL) TRANSTHORACIC ECHOCARDIOGRAM (TTE) COMPLETE W/ [...] 44 mL CV PACS Left Atrium Minor Star 5.1 cm CV PACS Left Atrium Major Star 4.2 cm CV PACS LA Area Sys [...] Gradient 89 mmHg CV PACS MV Deceleration Potter 4.1 m/s2 CV PACS E Wave Deceleration [...] Signed Date: 09/19/2024 14:55 ET Workstation ID: [id number] Transcribed By: Self Edit Transcribed Date: 09/18/2024 13:09 ET Resident/PA/RELAY ASSOCIATE: Rosaura Quintanilla Procedure Note Summer Sepulveda MD [...] Signed Date: 09/19/2024 14:55 ET Workstation ID: [id number] Transcribed By: Self Edit Transcribed Date: 09/18/2024 13:09 ET Resident/PA/RELAY ASSOCIATE: Rosaura Quintanilla Rosaura JOSEPH IMG US PROCEDURES * (ABNORMAL) Culture body fluid with gram stain (09/18/2024 11:40 AM EST) Fluid Culture Methicillin-Sensiti ve Staphylococcus aureus(A) SANDRA 09/21/2024 11:05 AM EST [facility] Comment: The organism value for this result has been updated. These results have been appended to the previously preliminary verified report. Edited result: Previously reported as Staphylococcus aureus on 09/19/2024 at 1308 EST. Gram Stain Result Many Polymorphonuclear leukocytes(A) 09/21/2024 11:05 AM EST [facility] Gram Stain Result Few Gram positive cocci in clusters(A) 09/21/2024 11:05 AM EST [facility] Gram Stain Result No epithelial cells seen(A) 09/21/2024 11:05 AM [facility] Synovial Fluid [...] JOSEPH LAB MICROBIOLOGY - G ENERAL ORDERABLES [facility] ([facility]) [facility] [address] [place] [address], * CT Chest/Abdomen/Pelvis w Contrast (09/18/2024 11:35 [...] Signed Date: 09/18/2024 11:58 ET Workstation ID: [id number] Transcribed By: Self Edit Transcribed Date: 09/18/2024 [...] Signed Date: 09/18/2024 11:58 ET Workstation ID: [id number] Transcribed By: Self Edit Transcribed Date: 09/18/2024 11:52 ET Abran JOSEPH IMG CT PROCEDURES * (ABNORMAL) Culture blood (09/18/2024 9:31 AM EST) [facility] Culture, Blood Methicillin-Sens itive Staphylococcus aureus(AA) LAB MICROBIOLOGY METHOD 09/20/2024 9:31 AM EST [facility] Comment: Negative for PBP2a - indicates susceptible to Oxacillin FOR SUSCEPTIBILITIES, REFER TO PREVIOUS CULTURE FROM [id number]. The organism value for this result has been updated. These results have been appended to the previously preliminary verified report. Gram Stain Result Aerobic bottle Gram positive cocci in clusters(AA) 09/20/2024 9:31 AM EST [facility] Comment:This is an appended report. These results have been appended to a previously preliminary verified report. Blood Venous blood specimen / Unknown Venipuncture / Unknown 09/18/2024 9:31 AM EST 09/18/2024 9:36 AM EST Abran JOSEPH LAB MICROBIOLOGY - GENERAL ORDERABLES [facility] [address] [place] [address], * (ABNORMAL) Complete blood count (09/18/2024 8:13 AM EST) [facility] WBC 23.3(H) 4.8 - 10.8 K/mcL LAB HEMETOLOGY METHOD 09/18/2024 8:48 AM EST [facility] RBC 4.20 3.80 - 4.80 M/mcL LAB HEMETOLOGY METHOD 09/18/2024 8:48 AM EST [facility] Hemoglobin 9.4(L) 11.5 - 16.0 g/dL LAB HEMETOLOGY METHOD 09/18/2024 8:48 AM EST [facility] Hematocrit 30.0(L) 35.0 - 47.0 % LAB HEMETOLOGY METHOD 09/18/2024 8:48 AM EST [facility] MCV 71.8(L) 79.0 - 98.0 FL LAB HEMETOLOGY METHOD 09/18/2024 8:48 AM EST [facility] MCH 22.5(L) 27.0 - 32.0 pcg LAB HEMETOLOGY METHOD 09/18/2024 8:48 AM EST [facility] MCHC 31.3(L) 32.0 - 37.0 g/dL LAB HEMETOLOGY METHOD 09/18/2024 8:48 AM EST [facility] RDW 21.2(H) 11.0 - 15.0 % LAB HEMETOLOGY METHOD 09/18/2024 8:48 AM [facility] Platelets 403(H) 130 - 400 K/mcL LAB HEMETOLOGY METHOD 09/18/2024 8:48 AM EST [facility] MPV 9.6 7.0 - 11.0 FL LAB HEMETOLOGY METHOD 09/18/2024 8:48 AM EST [facility] NRBC 0.0 <1.0 % LAB HEMETOLOGY METHOD 09/18/2024 8:48 AM EST [facility] NRBC Absolute 0.00 <0.10 K/mcL LAB HEMETOLOGY METHOD 09/18/2024 8:48 AM EST [facility] Blood Venous blood specimen / Unknown Venipuncture / Unknown 09/18/2024 8:13 AM EST 09/18/2024 8:40 AM EST Dennis Hagan MD LAB BLOOD ORDERABLES [facility] [address] [place] [address], * (ABNORMAL) Basic metabolic panel (09/18/2024 8:13 [...] 09/18/2024 9:08 AM [facility] Blood Venous blood specimen / Unknown Venipuncture / Unknown 09/18/2024 8:13 AM EST 09/18/2024 8:40 AM EST Dennis Hagan MD LAB BLOOD ORDERABLES [facility] [address] [place] [address], * (ABNORMAL) Troponin I high sensitivity (09/18/2024 2:59 AM EST) [facility] High Sensitivity Troponin I 72(H) <=54 ng/L LAB CHEMISTRY METHOD 09/18/2024 3:49 AM EST [facility] Blood Venous blood specimen / Unknown Venipuncture / Unknown 09/18/2024 2:59 AM EST 09/18/2024 3:06 AM EST Narrative [facility] - 09/18/2024 3:49 AM EST High levels of biotin in samples may falsely decrease hsTroponin values. ??Use caution when interpreting hsTroponin results in patients taking biotin who exhibit renal impairment (eGFR <60) or in patients taking more than 20 mg/day of biotin. Katty JOSEPH LAB BLOOD ORDER ADALID [facility] [address] [place] [address], * ECG 12 lead (09/18/2024 2:31 AM EST) [facility] Ventricular Rate ECG 120 BPM GEMUSE Atrial Rate 120 BPM GEMUSE P-R Interval 148 ms GEMUSE QRS Duration 88 ms GEMUSE Q-T Interval 318 ms GEMUSE QTc 449 ms GEMUSE P Wave Star 58 degrees GEMUSE R Star 6 degrees GEMUSE T Star 29 degrees GEMUSE ECG Interpretation Sinus tachycardia Minimal voltage criteria for LVH, may be normal variant Borderline ECG When compared with ECG of 09-AUG-2024 02:15, Nonspecific T wave abnormality no longer evident in Anterior leads Confirmed by HARRIS AVILES ([id number]) on 09/18/2024 9:36:05 PM GEM[facility] 09/18/2024 2:31 AM EST 09/18/2024 9:36 PM EST Katty JOSEPH ECG ORDERABLES Performing Organization Address [facility]/ZIP Co de Phone Number GEMUSE * (ABNORMAL) C-reactive protein (09/17/2024 11:23 PM EST) [facility] C-Reactive Protein 13.40(H) <=0.50 mg/dL LAB CHEMISTRY METHOD 09/18/2024 12:08 AM EST [facility] Blood Venous blood specimen / Unknown Venipuncture / Unknown 09/17/2024 11:23 PM EST 09/17/2024 11:37 PM EST Katty JOSEPH LAB BLOOD ORDER ADALID Performing Organization Address [facility] Co de Phone Number [facility] [address] [place] [address], [place] [phone] * (ABNORMAL) Sedimentation rate (09/17/2024 11:23 PM EST) [facility] Sed Rate 125(H) 0 - 30 mm/hr LAB HEMETOLOGY METHOD 09/17/2024 11:42 PM EST [facility] Blood Venous blood specimen / Unknown Venipuncture / Unknown 09/17/2024 11:23 PM EST 09/17/2024 11:37 PM EST Katty JOSEPH LAB BLOOD ORDER ADALID Performing Organization Address [facility] Co de Phone Number [facility] [address] [place] [address], [place] [phone] * XR Chest 1 View (09/17/2024 11:18 [...] Signed Date: 09/18/2024 08:25 ET Workstation ID: [id number] Transcribed By: Self Edit Transcribed Date: 09/18/2024 [...] Signed Date: 09/18/2024 08:25 ET Workstation ID: [id number] Transcribed By: Self Edit Transcribed Date: 09/18/2024 [...] Sedimentation rate (09/17/2024 6:33 PM EST) Pathologist [facility] Sed Rate 121(H) 0 - 30 mm/hr LAB HEMETOLOGY METHOD 09/17/2024 7:04 PM EST [facility] Blood Venous blood specimen / Unknown Venipuncture / Unknown 09/17/2024 6:33 PM EST 09/17/2024 6:40 PM EST Rich Varner MD LAB BLOOD ORDERABLES [facility] [address] [place] [address], * (ABNORMAL) C-reactive protein (09/17/2024 6:33 PM EST) C-Reactive Protein 12.00(H) <=0.50 mg/dL LAB CHEMISTRY METHOD 09/17/2024 7:24 PM EST [facility] Blood Venous blood specimen / Unknown Venipuncture / Unknown 09/17/2024 6:33 PM EST 09/17/2024 6:40 PM EST Rich Varner MD LAB BLOOD ORDERABLES [facility] [address] [place] [address], * (ABNORMAL) CBC auto differential (09/17/2024 6:33 PM EST) WBC 19.8(H) 4.8 - 10.8 K/mcL LAB HEMETOLOGY METHOD 09/17/2024 6:48 PM EST [facility] RBC 4.00 3.80 - 4.80 M/mcL LAB HEMETOLOGY METHOD 09/17/2024 6:48 PM EST [facility] Hemoglobin 9.0(L) 11.5 - 16.0 g/dL LAB HEMETOLOGY METHOD 09/17/2024 6:48 PM EST [facility] Hematocrit 28.8(L) 35.0 - 47.0 % LAB HEMETOLOGY METHOD 09/17/2024 6:48 PM EST [facility] MCV 72.5(L) 79.0 - 98.0 FL LAB HEMETOLOGY METHOD 09/17/2024 6:48 PM EST [facility] MCH 22.7(L) 27.0 - 32.0 pcg LAB HEMETOLOGY METHOD 09/17/2024 6:48 PM EST [facility] MCHC 31.3(L) 32.0 - 37.0 g/dL LAB HEMETOLOGY METHOD 09/17/2024 6:48 PM EST [facility] RDW 20.8(H) 11.0 - 15.0 [...] 6:48 PM [facility] Eosinophils Absolute 0.03 0.00 - 0.50 K/mcL LAB HEMETOLOGY METHOD 09/17/2024 6:48 PM [facility] Basophils Absolute 0.03 0.00 - 0.20 K/mcL LAB HEMETOLOGY METHOD 09/17/2024 6:48 PM [facility] Immature Granulocytes Absolute 0.13(H) 0.00 - 0.03 K/mcL LAB HEMETOLOGY METHOD 09/17/2024 6:48 PM [facility] Blood Venous blood specimen / Unknown Venipuncture / Unknown 09/17/2024 6:33 PM EST 09/17/2024 6:40 PM EST Silvestre Kerr DO LAB BLOOD ORDERABLES [facility] [address] [place] [address], * (ABNORMAL) Comprehensive metabolic panel (09/17/2024 6:33 PM EST) Sodium 131(L) 133 - 145 mmol/L LAB CHEMISTRY METHOD 09/17/2024 7:20 PM [facility] Potassium 3.4(L) 3.5 - 5.5 mmol/L LAB CHEMISTRY METHOD 09/17/2024 7:20 PM [facility] Chloride 97 96 - 110 [...] EST Silvestre Kerr DO LAB BLOOD ORDERABLES [facility] [address] [place] [address], * (ABNORMAL) Blood culture pathogens molecular study (09/17/2024 4:35 PM EST) Staphylococcus aureus Detected (A) Not Detected LAB MICROBIOLOGY METHOD 09/18/2024 7:17 AM EST [facility] Blood Venous blood specimen / Unknown Venipuncture / Unknown 09/17/2024 4:35 PM EST 09/17/2024 4:46 PM EST Silvestre Kerr DO LAB MICROBIOLOGY - G ENERAL ORDERABLES [facility] [address] [place] [address], * (ABNORMAL) Blood culture (09/17/2024 4:35 PM EST) [facility] Culture, Blood Methicillin-Sensi tive Staphylococcus aureus(AA) SANDRA 09/20/2024 9:15 AM EST [facility] Comment: Negative for PBP2a - indicates susceptible to Oxacillin The organism value for this result has been updated. These results have been appended to the previously preliminary verified report. Edited result: Previously reported as Staphylococcus aureus on 09/19/2024 at 0959 EST. Gram Stain Result Aerobic and Anaerobic bottles Gram positive cocci(AA) 09/20/2024 9:15 AM EST [facility] Comment: This is an appended [...] <=0.5 ug/ml: Susceptible Methicillin-Sensitive Staphylococcus aureus Ciprofloxacin SNADRA <=0.5 ug/ml: Susceptible Methicillin-Sensitive Staphylococcus aureus Levofloxacin [...] - G ENERAL ORDERABLES Performing Organization Address [facility]/ZIP Co de Phone Number [facility] [address] [place] [address], * Lactate (09/17/2024 4:35 PM EST) [facility] Lactate 1.4 0.4 - 2.0 mmol/L LAB CHEMISTRY METHOD 09/17/2024 5:13 PM EST [facility] Blood Venous blood specimen / Unknown Venipuncture / Unknown 09/17/2024 4:35 PM EST 09/17/2024 4:47 PM EST Silvestre RODRIGUEZ BLOOD ORDERABLES Performing Organization Address [facility]/ZIP Co de Phone Number [facility] [address] [place] [address], [place] [phone] * (ABNORMAL) Blood culture (09/17/2024 4:35 PM EST) [facility] Culture, Blood Staphylococcus aureus(AA) LAB MICROBIOLOGY METHOD 09/20/2024 9:17 AM EST [facility] Comment: Negative for PBP2a - indicates susceptible to Oxacillin FOR SUSCEPTIBILITIES, REFER TO PREVIOUS CULTURE FROM 09-17-24 at 1635. The organism value for this result has been updated. These results have been appended to the previously preliminary verified report. Gram Stain Result Aerobic and Anaerobic bottles Gram positive cocci(AA) 09/20/2024 9:17 AM EST [facility] Comment: This is an appended report. These results have been appended to a previously preliminary verified report. Corrected result: Previously reported as Anaerobic bottle Gram positive cocci on 09/18/2024 at 0452 EST. Blood Venipuncture / Unknown 09/17/2024 4:35 PM EST 09/17/2024 4:48 PM EST Silvestre Kerr DO LAB MICROBIOLOGY - G ENERAL ORDERABLES [facility] [address] [place] [address], * Respiratory virus panel molecular study (09/17/2024 [...] 5:39 PM [facility] Coronavirus HKU1 Not Detected Not [...] 09/17/2024 4:06 PM EST 09/17/2024 4:36 PM [facility] - 09/17/2024 5:39 PM EST Testing was performed using the [employer] Respiratory Pathogen PCR Assay. All results must [...] Silvestre Kerr DO LAB MICROBIOLOGY - G [facility] ORDERABLES [facility] ([facility]) [facility] [address] [place] [address], documented in this encounter Visit Diagnoses Diagnosis [...] documented as of this encounter Care Teams Barrel Ribs Solderer Relationship Specialty Start Date End Date Dale Pinto MD [address] [place] [address] PCP - General Internal Medicine 11/10/21 documented as of this encounter
--- OUTSIDE RECORDS SUMMARY | 2024-10-01 06:23 | XMS_ITS | Encounter Summary ---
Author Organization [employer] [facility] Address [address] [place] [address] Care Team Providers Care Nursing Specialist Name Role Phone Dale Pinto MD Primary Care Provider [phone] Encounter Details Date Type Department Care Team (Late st Contact Info) Description 07/16/2024 Lab Requisition [facility] - Main Lab [address] [facility] [place] [address] Rey Escalante MD [address] [place] [id number] Acute respiratory failure with hypoxia (CMS/HCC) Social [...] K/mcL LAB HEMETOLOGY METHOD 07/16/2024 1:49 PM [facility] RBC 3.50(L) 3.80 - 4.80 M/mcL LAB HEMETOLOGY METHOD 07/16/2024 1:49 PM [facility] Hemoglobin 7.6(L) 11.5 - 16.0 g/dL LAB HEMETOLOGY METHOD 07/16/2024 1:49 PM [facility] Hematocrit 25.1(L) 35.0 - 47.0 % LAB HEMETOLOGY METHOD 07/16/2024 1:49 PM [facility] MCV 71.1(L) 79.0 - 98.0 FL LAB HEMETOLOGY METHOD 07/16/2024 1:49 PM [facility] MCH 21.5(L) 27.0 - 32.0 pcg LAB HEMETOLOGY METHOD 07/16/2024 1:49 PM [facility] MCHC 30.3(L) 32.0 - 37.0 g/dL LAB HEMETOLOGY METHOD 07/16/2024 1:49 PM [facility] RDW 18.9(H) 11.0 - 15.0 % LAB HEMETOLOGY METHOD 07/16/2024 1:49 PM [facility] Platelets 786(H) 130 - 400 K/mcL LAB HEMETOLOGY METHOD 07/16/2024 1:49 PM [facility] MPV 9.3 7.0 - 11.0 FL LAB HEMETOLOGY METHOD 07/16/2024 1:49 PM [facility] NRBC 0.0 <1.0 % LAB HEMETOLOGY METHOD 07/16/2024 1:49 PM [facility] NRBC Absolute 0.00 <0.10 K/mcL LAB HEMETOLOGY METHOD 07/16/2024 1:49 PM [facility] Neutrophils Relative 83.8 % LAB HEMETOLOGY METHOD 07/16/2024 1:49 PM [facility] Lymphocytes Relative 9.6 % LAB HEMETOLOGY METHOD 07/16/2024 1:49 PM [facility] Monocytes Relative 2.2 % LAB HEMETOLOGY METHOD 07/16/2024 1:49 PM [facility] Eosinophils Relative 3.6 % LAB HEMETOLOGY METHOD 07/16/2024 1:49 PM [facility] Basophils Relative 0.2 % LAB HEMETOLOGY METHOD 07/16/2024 1:49 PM [facility] Immature Granulocytes Relative 0.6 % LAB HEMETOLOGY METHOD 07/16/2024 1:49 PM [facility] Neutrophils Absolute 11.67(H) 1.50 - 7.00 K/mcL LAB HEMETOLOGY METHOD 07/16/2024 1:49 PM [facility] Lymphocytes Absolute 1.34 1.00 - 5.00 K/mcL LAB HEMETOLOGY METHOD 07/16/2024 1:49 PM [facility] Monocytes Absolute 0.30 0.20 - 1.00 K/mcL LAB HEMETOLOGY METHOD 07/16/2024 1:49 PM [facility] Eosinophils Absolute 0.50 0.00 - 0.50 K/mcL LAB HEMETOLOGY METHOD 07/16/2024 1:49 PM [facility] Basophils Absolute 0.03 0.00 - 0.20 K/mcL LAB HEMETOLOGY METHOD 07/16/2024 1:49 PM [facility] Immature Granulocytes Absolute 0.09(H) 0.00 - 0.03 K/mcL LAB HEMETOLOGY METHOD 07/16/2024 1:49 PM [facility] Blood Venous blood specimen / Unknown Venipuncture / Unknown 07/16/2024 6:17 AM EST 07/16/2024 11:52 AM EST Rey Escalante MD LAB BLOOD ORDERABLES [facility] [address] [place] [address], * (ABNORMAL) Comprehensive metabolic panel (07/16/2024 6:17 AM EST) Sodium 133 133 - 145 mmol/L LAB CHEMISTRY METHOD 07/16/2024 2:12 PM [facility] Potassium 4.3 3.5 - 5.5 mmol/L LAB CHEMISTRY METHOD 07/16/2024 2:12 PM [facility] Chloride 98 96 - 110 mmol/L LAB CHEMISTRY METHOD 07/16/2024 2:12 PM [facility] CO2 24 21 - 32 mmol/L LAB CHEMISTRY METHOD 07/16/2024 2:12 PM [facility] Anion Gap 11 3 - 11 LAB CHEMISTRY METHOD 07/16/2024 2:12 PM [facility] Glucose 51(L) 70 - 100 mg/dL LAB CHEMISTRY METHOD 07/16/2024 2:12 PM [facility] Comment:Lipemia present BUN 8 5 - 25 mg/dL LAB CHEMISTRY METHOD 07/16/2024 2:12 PM [facility] Creatinine 0.29(L) 0.50 - 1.10 mg/dL LAB CHEMISTRY METHOD 07/16/2024 2:12 PM [facility] eGFR 111 >=60 mL/min/1. 73m2 LAB CHEMISTRY METHOD 07/16/2024 2:12 PM [facility] Comment:Calculation based on the??Chronic Kidney Disease Epidemiology Collaboration (CKD-EPI) equation refit??without adjustment for race. BUN/Creatinine Ratio 27.6 LAB CHEMISTRY METHOD 07/16/2024 2:12 PM [facility] Calcium 8.7 8.5 - 10.5 mg/dL LAB CHEMISTRY METHOD 07/16/2024 2:12 PM [facility] AST (SGOT) 12 10 - 42 unit/L LAB CHEMISTRY METHOD 07/16/2024 2:12 PM [facility] Comment:Lipemia present ALT (SGPT) 10 10 - 60 unit/L LAB CHEMISTRY METHOD 07/16/2024 2:12 PM [facility] Comment:Lipemia present Alkaline Phosphatase 101 42 - 121 unit/L LAB CHEMISTRY METHOD 07/16/2024 2:12 PM [facility] Total Protein 5.8(L) 6.0 - 8.0 g/dL LAB CHEMISTRY METHOD 07/16/2024 2:12 PM [facility] Albumin 2.2(L) 3.2 - 5.0 g/dL LAB CHEMISTRY METHOD 07/16/2024 2:12 PM [facility] Total Bilirubin 0.3 0.0 - 1.4 mg/dL LAB CHEMISTRY METHOD 07/16/2024 2:12 PM [facility] Blood Venous blood specimen / Unknown Venipuncture / Unknown 07/16/2024 6:17 AM EST 07/16/2024 11:52 AM EST Rey Escalante MD LAB BLOOD ORDERABLES [facility] [address] [place], [place] [address] [phone] documented in this encounter Visit Diagnoses Diagnosis [...] documented as of this encounter Care Teams Nursing Specialist Relationship Specialty Start Date End Date Dale Pinto MD [address] [place] [address] PCP - General Internal Medicine 11/10/21 documented as of this encounter
--- OUTSIDE RECORDS SUMMARY | 2024-10-01 06:24 | XMS_ITS ---
Author Organization [facility] Address [address] [place] [address] Care Team Providers Care Credit Risk Analytics Manager Name Role Phone Blair QUIÑONES, Dale Primary Care Provider Peggy Jackson [phone] REASON FOR VISIT no show Encounters Encounter Location Date Provider Diagnosis [facility] [address] [place] [address] 07/25/2024 Peggy Parker Plan Of Treatment No Information Progress Notes * ILIANALouann KDOB:1950 (74 yo F)Acc No.[id number]:07/25/2024 Patient:?Louann BARRIENTOS :1950???Age:74 Y???Sex:Female Address:[address] [place] [address], [address] * true * Date:? Generated for Printi can/Dominic/eTransmitting on:?10/01/2024 01:26 AM EST
--- OUTSIDE RECORDS SUMMARY | 2024-10-01 06:24 | XMS_ITS ---
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 Generated for [place]/Dominic/Juan Antonio on:?10/01/2024 01:26 AM EST History and Physical Notes * HPI (History of Present Illness) Category Sub-Category Detail Notes Category Not es Painful Nails Pt States Last PCP Visit: Date:: 04/16/2024
--- OUTSIDE RECORDS SUMMARY | 2024-10-01 06:24 | XMS_ITS | Encounter Summary ---
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) Procedures [facility] IP/OBS CARE INITIAL MODERATE LEVEL PER DAY Dennis Hagan MD [address] [place] [phone] [facility] [address] [address] Referral ID Status Reason Start Date Expiration Date Visits Re quested Visits Authorized [id number] 1 1 Encounter Details Date Type Department Care Team (Late st Contact Info) Description 09/19/2024 9:35 AM EST Anesthesia Event [facility] Main OR [address] [place] [address] Hans Rivera DO [address] [place] [address] Anesthesia Record Procedure Summary Procedure Name Responsible [...] Procedure Summary Date: 09/19/24 Room / Location: [facility] OR [address] [place] [address] OR Anesthesia Start: 934 Anesthesia Stop: 1105 Procedure: ARTHROSCOPY SHOULDER WASHOUT (Right: Shoulder) Diagnosis: Pyogenic arthritis of right shoulder region, due to unspecified organism ([facility]) Surgeons: Henri Mcdowell MD Responsible Provider: [...] 74 y.o. female scheduled for Septic arthritis ([facility]); Arthritis of right shoulder due to other bacte* [ARTHROSCOPY SHOULDER WASHOUT (Right: Shoulder)] Ht Readings from Last 1 Encounters: 09/18/24 1.549 m (60.98 ) Wt Readings from Last 1 Encounters: 09/18/24 46.2 kg (101 lb 13.6 oz) Body mass index is 19.25 kg/m??. Past Medical History: Diagnosis Date Raynaud disease DX:Raynaud disease Rheumatoid arthritis ([facility]/HCC) DX:Rheumatoid arthritis (HCC) [place] (CMS/HCC) DX:[place] (HCC) Past Surgical History: Procedure Laterality Date LEG SURGERY Left 11/16/2022 PROCEDURE:LEG SURGERY;COMMENT:Procedure: I&D LEFT LOWER EXTREMITY; Surgeon: Robbie Villagran MD;Location: [facility] MAIN OPERATING ROOM; Service: Orthopedic Trauma; Laterality: Left; OTHER SURGICAL HISTORY Left 10/16/2022 PROCEDURE:ORIF FEMORAL SHAFT FRACTURE W/ PLATES AND SCREWS;COMMENT:Procedure: REPAIR NONUNION LEFT FEMUR/ORIF LEFT FEMUR; Surgeon: Robbie Villagran MD; Location: [facility] MAIN OPERATING ROOM; Service: Orthopedic [...] Q-T Interval 318 QTc 449 P Wave Wallace 58 R Wallace 6 T Wallace 29 ECG Interpretation Sinus tachycardia Minimal voltage [...] mg documented in this encounter Care Teams Grinder Set Up Operator Universal Relationship Specialty Start Date End Date Dale Pinto MD [address] [place] [address] PCP - General Internal Medicine 11/10/21 documented as of this encounter
[2024-10-01 07:13] LABS: Basophils Percent Auto 0.1 % (0-2); Eosinophils Percent Auto 0.1 % (0-4); Hematocrit 29.4 % (37.0-47.0); Hemoglobin 8.3 g/dl (12.0-16.0); Imm Gran Abs Auto 0.14 X10*3/uL (0.00-0.03); Imm Gran Pct Auto 0.8 % (0.0-0.4); Lymphocytes Absolute Auto 0.9 X10*3/uL (1.2-4.9); Mean Corpuscular HGB Conc 28.2 g/dl (31.0-35.0); Mean Corpuscular Volume 81.4 fL (80.0-98.0); Mean Platelet Volume 10.1 fL (9.4-12.3); Monocytes Absolute Auto 0.8 X10*3/uL (0.1-1.2); Monocytes Percent Auto 4.7 % (2-11); NRBC Pct Auto 0.1 /100WBC (0.0-0.2); Neutrophils Absolute Auto 15.8 x10*3/uL (2.0-8.3); Neutrophils Percent Auto 89.3 % (45-73); Platelet Count 439 X10*3/uL (160-400); Red Blood Count 3.61 X10*6/uL (4.20-5.50); Red Cell Distribution Width 25.7 % (11.0-16.0); White Blood Count 17.7 X10*3/uL (4.8-10.8)
[2024-10-01 07:26] LABS: Anion Gap 21 (12-20); Blood Urea Nitrogen 21 mg/dL (9-16); Calcium 8.4 mg/dL (8.4-10.2); Carbon Dioxide 21 mmol/L (22-29); Chloride 129 mmol/L (96-108); Estimated Glomerular Filt Rate > 60; Glucose Random 67 mg/dL (60-115); Potassium 3.5 mmol/L (3.3-5.1)
[2024-10-01 08:08] LABS: Sodium 167 mmol/L (135-145)
== END 2024-10-01 06:18 | disposition home or self-care (01) ==
LOC: HO.MMNH1L 06:17
PROVIDERS: Visit Provider Nurse Practitioner
DX: M06.9 Rheumatoid arthritis, unspecified (principal); R26.9 Unspecified abnormalities of gait and mobility
CPT/HCPCS: 36415; 80048; 85025